=== PATIENT | male | born 1965 ===

== ENCOUNTER → 2020-01-04 10:57 | Outpatient (REF) | payer MEDICARE, MEDICAID, SELFPAY ==
--- NOTE | 2020-01-04 11:10 | ECG_ITS ---
Test Reason : Z01.818 - Encounter for other preprocedural examination Blood Pressure : / mmHG Vent. Rate : 066 BPM Atrial Rate : 066 BPM P-R Int : 160 ms QRS Dur : 078 ms QT Int : 384 ms P-R-T Axes : 048 021 035 degrees QTc Int : 402 ms Normal sinus rhythm Normal ECG When compared with ECG of 03-MAR-2019 16:29, No significant changes seen Referred By: Aston Daniel Electronically Signed By:KRISTEN JEROME MD
== END ==
LOC: HO.CARD 10:57
PROVIDERS: Absent Provider Internal Medicine Gastroenterology; PCP Nurse Practitioner Family; Visit Provider Nurse Practitioner Family
DX: Z01.818 Encounter for other preprocedural examination (principal)
CPT/HCPCS: 93005

== ENCOUNTER 2020-01-05 11:57 | Day surgery (SDC) | payer MEDICARE, MEDICAID, SELFPAY ==
[2019-12-28 16:42] VITALS: BMI 28.7
--- NOTE | 2019-12-29 13:07 | HO.ANESPROP2 ---
HPI - Anesthesia Eval Consult details Narrative: 54yo M for EGD [facility] Past Medical History Medical History (Updated 01/05/20 @ 13:50 by Aston Daniel, [facility]) Anxiety Asthma Back pain Chronic pain COPD (chronic obstructive pulmonary disease) Dysphagia GERD (gastroesophageal reflux disease) High cholesterol History of colitis History of esophageal spasm History of IBS Hx of allergic rhinitis Hx of chest pain Hx of goiter Hx of multiple pulmonary nodules Hx of renal calculi Hypertension KATHLEEN on CPAP Osteoarthritis of both hips Panic attacks PTSD (post-traumatic stress disorder) Surgical History Surgical History (Updated 12/28/19 @ 16:41 by Georgia Pitt) History of nasal surgery Hx of cervical discectomy Hx of colonoscopy Hx of esophagogastroduodenoscopy Hx of left inguinal hernia repair Hx of tonsillectomy Hx of transurethral resection of prostate Social History Social History Smoking Status: Former smoker Meds Allergies Allergy/AdvReac Type Severity Reaction Status Date / Time bee pollen [BEE STINGS] Allergy Unknown UNKNOWN Unverified 12/09/19 15:25 metronidazole [From FLAGYL] Allergy Unknown RASH Unverified 12/09/19 15:25 tree and shrub pollen [TREE] Allergy Unknown UNK Unverified 12/09/19 15:25 dexamethasone AdvReac Unknown palpitatiio Verified 10/26/19 00:00 ns fluticasone furoate AdvReac Unknown palpitations, Verified 10/26/19 00:00 [Breo Ellipta] high BP umeclidinium AdvReac Unknown palpitation Verified 10/26/19 00:00 [Incruse Ellipta] s vilanterol [Breo Ellipta] AdvReac Unknown palpitations, Verified 10/26/19 00:00 high BP Bee sting Allergy Unknown Hives/Difficulty Uncoded 10/26/19 00:00 breathing Clindamycin HCl Allergy Unknown Hives Uncoded 10/26/19 00:00 ENVIRONMENTAL Allergy Unknown UNKNOWN Uncoded 12/09/19 15:25 TYLENOL ES Allergy Unknown UNKNOWN Uncoded 12/09/19 15:25 Home Medications Medication Instructions Recorded Confirmed Type acetaminophen 500 mg tablet 500 mg PO Q6H PRN 12/23/19 12/23/19 History albuterol sulfate 90 mcg/actuation INHALATION 12/23/19 12/23/19 History aerosol inhaler baclofen 10 mg tablet 5 mg PO BID 12/23/19 12/23/19 History cholecalciferol (vitamin D3) 50 50 mcg PO DAILY 12/23/19 12/23/19 History mcg (2,000 unit) tablet cyclobenzaprine 10 mg tablet 10 mg PO TID PRN 12/23/19 12/23/19 History cyclobenzaprine 5 mg tablet 5 mg PO TID PRN 12/23/19 12/23/19 History diclofenac sodium 1 % topical gel g TOPICAL DAILY 12/23/19 12/23/19 History epinephrine 0.3 mg/0.3 mL IM DIRECTED 12/23/19 12/23/19 History injection, auto-injector famotidine 20 mg tablet 20 mg PO BEDTIME PRN 12/23/19 12/23/19 History famotidine 40 mg tablet 40 mg PO DAILY 12/23/19 12/23/19 History hydroxyzine pamoate 25 mg capsule 25 mg PO BEDTIME PRN 12/23/19 12/23/19 History hyoscyamine sulfate 0.125 mg 0.125 mg PO Q4H PRN 12/23/19 12/23/19 History disintegrating tablet ibuprofen 600 mg tablet 600 mg PO QID PRN 12/23/19 12/23/19 History ipratropium 20 mcg-albuterol 100 1 puff PO Q6H 12/23/19 12/23/19 History mcg/actuation mist for inhalation lactulose 10 gram/15 mL oral 15 ml PO DAILY 12/23/19 12/23/19 History solution levalbuterol tartrate 45 2 puff PO Q6H PRN 12/23/19 12/23/19 History mcg/actuation aerosol inhaler levocetirizine 5 mg tablet mg PO 12/23/19 12/23/19 History lidocaine HCl 2 % mucosal solution 15 ml PO Q3H PRN 12/23/19 12/23/19 History lisinopril 5 mg tablet 5 mg PO DAILY 12/23/19 12/23/19 History methocarbamol 750 mg tablet 750 mg PO QID 12/23/19 12/23/19 History multivitamin 1 tab PO DAILY 12/23/19 12/23/19 History naproxen 500 mg tablet 500 mg PO Q12H PRN 12/23/19 12/23/19 History omega-3 acid ethyl esters 1 gram 2 cap PO BID 12/23/19 12/23/19 History capsule oxycodone 15 mg tablet 15 mg PO BID PRN 12/23/19 12/23/19 History phenazopyridine 100 mg tablet 100 mg PO Q8H PRN 12/23/19 12/23/19 History simethicone 180 mg capsule 180 mg PO PRN 12/23/19 12/23/19 History sucralfate 100 mg/mL oral 10 ml PO BID 12/23/19 12/23/19 History suspension tramadol 50 mg tablet 50 mg PO Q8H PRN 12/23/19 12/23/19 History triamcinolone acetonide 55 mcg 1 spray INTRANASAL DAILY 12/23/19 12/23/19 History nasal spray aerosol Exam Exam Date and Time: December 29, 2019 1307 Height,Weight and Vital Signs: Height 5 ft 8 in Weight 85.729 kg Pertinent Lab Results Pertinent Lab Results: Laboratory Tests 08/11/19 08/11/19 10:45 10:45 WBC 6.1 Hgb 14.9 Hct 43.1 Plt Count 277 Sodium 139 Potassium 4.4 Chloride 103 BUN 12 Creatinine 0.97 EKG per 11/10 cardiol note: SR, nonspec ant lead changes, ? 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 Assessment and Plan Assessment Anesthesia Assessment: Chart Reviewed
[2020-01-05 12:45] VITALS: BP 148/88; PULSE 59; RESP 18; TEMP 36.7; O2SAT 97
--- NOTE | 2020-01-05 13:04 | HO.ANESPROP2 ---
[facility] Past Medical History Medical History (Updated 01/04/20 @ 07:42 by Aston Daniel, [facility]) Anxiety Asthma Back pain Chronic pain COPD (chronic obstructive pulmonary disease) Dysphagia GERD (gastroesophageal reflux disease) High cholesterol History of colitis History of esophageal spasm History of IBS Hx of allergic rhinitis Hx of chest pain Hx of goiter Hx of multiple pulmonary nodules Hx of renal calculi Hypertension KATHLEEN on CPAP Osteoarthritis of both hips Panic attacks PTSD (post-traumatic stress disorder) Surgical History Surgical History (Updated 12/28/19 @ 16:41 by Georgia Pitt) History of nasal surgery Hx of cervical discectomy Hx of colonoscopy Hx of esophagogastroduodenoscopy Hx of left inguinal hernia repair Hx of tonsillectomy Hx of transurethral resection of prostate Social History Social History Smoking Status: Former smoker Smoking Quit Date: years ago Use of substances other than those prescribed or required for medical reasons: No Advance Directives: Yes Advance Directives on File: No Recently lost weight without trying: No Meds Allergies Allergy/AdvReac Type Severity Reaction Status Date / Time bee pollen [BEE STINGS] Allergy Unknown UNKNOWN Unverified 12/09/19 15:25 metronidazole [From FLAGYL] Allergy Unknown RASH Unverified 12/09/19 15:25 tree and shrub pollen [TREE] Allergy Unknown UNK Unverified 12/09/19 15:25 dexamethasone AdvReac Unknown palpitatiio Verified 10/26/19 00:00 ns fluticasone furoate AdvReac Unknown palpitations, Verified 10/26/19 00:00 [Breo Ellipta] high BP umeclidinium AdvReac Unknown palpitation Verified 10/26/19 00:00 [Incruse Ellipta] s vilanterol [Breo Ellipta] AdvReac Unknown palpitations, Verified 10/26/19 00:00 high BP Bee sting Allergy Unknown Hives/Difficulty Uncoded 10/26/19 00:00 breathing Clindamycin HCl Allergy Unknown Hives Uncoded 10/26/19 00:00 ENVIRONMENTAL Allergy Unknown UNKNOWN Uncoded 12/09/19 15:25 TYLENOL ES Allergy Unknown UNKNOWN Uncoded 12/09/19 15:25 Home Medications Medication Instructions Recorded Confirmed Type acetaminophen 500 mg tablet 500 mg PO Q6H PRN 12/23/19 12/23/19 History albuterol sulfate 90 mcg/actuation INHALATION 12/23/19 12/23/19 History aerosol inhaler baclofen 10 mg tablet 5 mg PO BID 12/23/19 12/23/19 History cholecalciferol (vitamin D3) 50 50 mcg PO DAILY 12/23/19 12/23/19 History mcg (2,000 unit) tablet cyclobenzaprine 10 mg tablet 10 mg PO TID PRN 12/23/19 12/23/19 History cyclobenzaprine 5 mg tablet 5 mg PO TID PRN 12/23/19 12/23/19 History diclofenac sodium 1 % topical gel g TOPICAL DAILY 12/23/19 12/23/19 History epinephrine 0.3 mg/0.3 mL IM DIRECTED 12/23/19 12/23/19 History injection, auto-injector famotidine 20 mg tablet 20 mg PO BEDTIME PRN 12/23/19 12/23/19 History famotidine 40 mg tablet 40 mg PO DAILY 12/23/19 12/23/19 History hydroxyzine pamoate 25 mg capsule 25 mg PO BEDTIME PRN 12/23/19 12/23/19 History hyoscyamine sulfate 0.125 mg 0.125 mg PO Q4H PRN 12/23/19 12/23/19 History disintegrating tablet ibuprofen 600 mg tablet 600 mg PO QID PRN 12/23/19 12/23/19 History ipratropium 20 mcg-albuterol 100 1 puff PO Q6H 12/23/19 12/23/19 History mcg/actuation mist for inhalation lactulose 10 gram/15 mL oral 15 ml PO DAILY 12/23/19 12/23/19 History solution levalbuterol tartrate 45 2 puff PO Q6H PRN 12/23/19 12/23/19 History mcg/actuation aerosol inhaler levocetirizine 5 mg tablet mg PO 12/23/19 12/23/19 History lidocaine HCl 2 % mucosal solution 15 ml PO Q3H PRN 12/23/19 12/23/19 History lisinopril 5 mg tablet 5 mg PO DAILY 12/23/19 12/23/19 History methocarbamol 750 mg tablet 750 mg PO QID 12/23/19 12/23/19 History multivitamin 1 tab PO DAILY 12/23/19 12/23/19 History naproxen 500 mg tablet 500 mg PO Q12H PRN 12/23/19 12/23/19 History omega-3 acid ethyl esters 1 gram 2 cap PO BID 12/23/19 12/23/19 History capsule oxycodone 15 mg tablet 15 mg PO BID PRN 12/23/19 12/23/19 History phenazopyridine 100 mg tablet 100 mg PO Q8H PRN 12/23/19 12/23/19 History simethicone 180 mg capsule 180 mg PO PRN 12/23/19 12/23/19 History sucralfate 100 mg/mL oral 10 ml PO BID 12/23/19 12/23/19 History suspension tramadol 50 mg tablet 50 mg PO Q8H PRN 12/23/19 12/23/19 History triamcinolone acetonide 55 mcg 1 spray INTRANASAL DAILY 12/23/19 12/23/19 History nasal spray aerosol Exam Exam Date and Time: January 05, 2020 1304 Height,Weight and Vital Signs: Height 5 ft 8 in Weight 85.729 kg Last Vital Signs Temp 98.1 F 01/05/20 12:45 Pulse 59 01/05/20 12:45 Resp 18 01/05/20 12:45 BP 148/88 H 01/05/20 12:45 Pulse Ox 97 01/05/20 12:45 Airway Mallampati Class: III TM Dist: >3cm Neck ROM: Poor Loose/Missing/Broken Teeth: Yes and Lower (No lower teeth) Heart: RRR Assessment and Plan Assessment Anesthesia Assessment: Anesthesia Plan Discussed Final Anesthetic Review NPO: Yes ASA Class: III Final Preanesthetic Review: Consent Obtained/Reviewed Anesthetic Plan Anesthetic Plan: MAC:
[2020-01-05] MEDS: Albuterol Sulfate (0.083%) 2.5 MG/3 ML VIAL.NEB INHALE (13:08)
--- NOTE | 2020-01-05 13:18 | MHC.SHP ---
Pre-Procedural Eval Section B Chief Complaint: Dysphagia Relevant Family History (Specify if Yes): No Relevant Social History: None Present Medications: see Short Stay Collaborative assessment Medical History: Significant History (anxiety, neck pain, bladder obstruction, PTSD, ) History of Previous Operations: Relevant previous surgery/procedure and date(s) (TURP, nasal surgery) Allergies: Allergies Allergy/AdvReac Type Severity Reaction Status Date / Time bee pollen [BEE STINGS] Allergy Unknown UNKNOWN Unverified 12/09/19 15:25 metronidazole [From FLAGYL] Allergy Unknown RASH Unverified 12/09/19 15:25 tree and shrub pollen [TREE] Allergy Unknown UNK Unverified 12/09/19 15:25 dexamethasone AdvReac Unknown palpitatiio Verified 10/26/19 00:00 ns fluticasone furoate AdvReac Unknown palpitations, Verified 10/26/19 00:00 [Breo Ellipta] high BP umeclidinium AdvReac Unknown palpitation Verified 10/26/19 00:00 [Incruse Ellipta] s vilanterol [Breo Ellipta] AdvReac Unknown palpitations, Verified 10/26/19 00:00 high BP Bee sting Allergy Unknown Hives/Difficulty Uncoded 10/26/19 00:00 breathing Clindamycin HCl Allergy Unknown Hives Uncoded 10/26/19 00:00 ENVIRONMENTAL Allergy Unknown UNKNOWN Uncoded 12/09/19 15:25 TYLENOL ES Allergy Unknown UNKNOWN Uncoded 12/09/19 15:25 Review of Systems Sugical H&P ROS: Negative: Constitution, Cardiovascular, Respiratory, Neurological, Psychiatric, Hem-Onc, Allergic/Immunologic, Gastrointestinal, Genitourinary, Musculoskeletal, Integumentary, Endocrine and Eyes/Ears/Nose/Throat Exam Surgical H&P Exam: Normal: HEENT, Normal: Heart, Normal: Lungs, Normal: Extremities, Normal: Abdomen, Normal: Skin and Normal: Neurological Plan Diagnosis/Plan: Unchanged Patient has been examined and remains a candidate for the planned procedure
--- NOTE | 2020-01-05 13:22 | PM.OP ---
Brief Operative Note Date of procedure: 01/05/20 Pre-op diagnosis: dysphagia Post-op diagnosis: same Procedure: Procedure Description: EGD FLEXIBLE TRANSORAL UPPER GASTROINTESTINAL ENDOSCOPY UPPER ENDOSCOPY Consent: Indications for the procedure and potential complications of bleeding, perforation, reaction to medications and missed diagnosis were discussed with the patient and informed consent was obtained. Instrument: Olympus GIF H 190 J mid size upper endoscope Monitoring: Vital signs and clinical assessment, continuous EKG monitoring, Pulse oximetry, Carbon Dioxide monitoring and blood pressure monitoring were done throughout the procedure. Procedure: The patient was placed in the left lateral decubitis position and pre-procedure medications were administered and a bite block was placed. The endoscope was inserted into the mouth and advanced under direct vision to the third part of duodenum. A careful inspection was made as the upper endoscope was withdrawn including a retroflexed examination of the proximal stomach; Findings and interventions are described below. Findings: Larynx:normal Esophagus: GE junction at 38 cm, diaphragm hiatus at 38 cm, no varices or esophagitis. random esophagus bx taken. Radial balloon dilated in stepwise increments from 18-20 mm at GEJ, no tears noted. The balloon was also dilated at UES at 18 mm and small tear noted. Stomach: Normal gastric mucosa. Grade 2 flap valve on retroflexed examination of the cardia. Duodenum: Normal bulb and descending duodenum, Intervention: Biopsies as noted above, balloon dilation Impression/Findings: upper esophageal stricture PLAN: soft diet today can use magic mouthwash prn await bx results Surgeon: Wilmar Beal MD Anesthesia: MAC Condition: stable Disposition: PACU
[2020-01-05 13:47] VITALS: BP 138/88; PULSE 120; RESP 16; TEMP 36.5; O2SAT 95
[2020-01-05 14:08] VITALS: BP 135/86; PULSE 103; RESP 16; O2SAT 97
[2020-01-05 14:23] VITALS: BP 109/74; PULSE 88; RESP 19; TEMP 36.5; O2SAT 97
[2020-01-05] MEDS: Mag&Al/Sim/Diphenhyd/Lidocaine 10 ML ORAL.SUSP PO (14:27)
== END 2020-01-05 15:13 | disposition home or self-care (01) ==
PROVIDERS: PCP Nurse Practitioner Family; Visit Provider Internal Medicine Gastroenterology
PROC: (CPT 43249; principal; 2020-01-05 13:40)
DX: K22.2 Esophageal obstruction (principal); K44.9 Diaphragmatic hernia without obstruction or gangrene; I10 Essential (primary) hypertension; J45.909 Unspecified asthma, uncomplicated; J44.9 Chronic obstructive pulmonary disease, unspecified; E78.00 Pure hypercholesterolemia, unspecified; G47.33 Obstructive sleep apnea (adult) (pediatric); F41.0 Panic disorder [episodic paroxysmal anxiety]; F43.10 Post-traumatic stress disorder, unspecified; Z87.891 Personal history of nicotine dependence; Z88.1 Allergy status to other antibiotic agents; Z88.8 Allergy status to other drugs, medicaments and biological substances; Z91.030 Bee allergy status; Z79.899 Other long term (current) drug therapy
CPT/HCPCS: 43249; 43239; 88305; C1726

== ENCOUNTER 2020-01-10 14:00 | Outpatient (REF) | payer MEDICARE, MEDICAID, SELFPAY ==
--- NOTE | 2020-01-10 14:06 | XR_ITS ---
EXAMINATION: XR CHEST CLINICAL INFORMATION: COPD. COMPARISON: None TECHNIQUE: 2 views of the chest were obtained. FINDINGS: The lungs are well-expanded and clear. The heart size and pulmonary vascularity is normal. No gross bony abnormality seen. There is metallic plate and screws along the ventral C6 and C7 vertebra for fusion. IMPRESSION: No acute cardiopulmonary process seen.
== END 2020-01-10 14:01 | disposition home or self-care (01) ==
LOC: HO.XRAY 14:00
PROVIDERS: PCP Nurse Practitioner Family; Visit Provider Hospitalist
DX: J44.9 Chronic obstructive pulmonary disease, unspecified (principal)
CPT/HCPCS: 71046; 99214

== ENCOUNTER 2020-01-27 08:57 | Day surgery (SDC) | payer MEDICARE, MEDICAID, SELFPAY ==
--- NOTE | 2020-01-25 15:18 | HO.ANESPROP2 ---
Documented by User: Sharmila Nicole 01/26/20 11:05 HPI - Anesthesia Eval Consult details Narrative: 54yo M for Upper Endoscopy with dilation PCP cleared s/p EGD with dilation 01/05/20 with MOISÉS SUE Past Medical History Medical History (Updated 01/10/20 @ 13:44 by Johnathan Cerda MD) Anxiety Asthma Back pain Chronic pain COPD (chronic obstructive pulmonary disease) COPD (chronic obstructive pulmonary disease) Dysphagia GERD (gastroesophageal reflux disease) High cholesterol History of colitis History of esophageal spasm History of IBS Hx of allergic rhinitis Hx of chest pain Hx of goiter Hx of multiple pulmonary nodules Hx of renal calculi Hypertension KATHLEEN on CPAP Osteoarthritis of both hips Panic attacks PTSD (post-traumatic stress disorder) Pulmonary nodules Surgical History Surgical History (Updated 12/28/19 @ 16:41 by Georgia Pitt) History of nasal surgery Hx of cervical discectomy Hx of colonoscopy Hx of esophagogastroduodenoscopy Hx of left inguinal hernia repair Hx of tonsillectomy Hx of transurethral resection of prostate Social History Social History Smoking Status: Former smoker Use of substances other than those prescribed or required for medical reasons: No Advance Directives: No Recently lost weight without trying: No Narrative Narrative: Seen by cardiology after work up in 10/2019. CP thought to be related to cervical spine disease. No further cardiac work up needed. Meds Allergies Allergy/AdvReac Type Severity Reaction Status Date / Time bee pollen [BEE STINGS] Allergy Unknown UNKNOWN Verified 01/10/20 19:50 metronidazole [From FLAGYL] Allergy Unknown RASH Verified 01/10/20 19:50 tree and shrub pollen [TREE] Allergy Unknown UNK Verified 01/10/20 19:50 dexamethasone AdvReac Unknown palpitatiio Verified 01/10/20 19:50 ns fluticasone furoate AdvReac Unknown palpitations, Verified 01/10/20 19:50 [Breo Ellipta] high BP umeclidinium AdvReac Unknown palpitation Verified 01/10/20 19:50 [Incruse Ellipta] s vilanterol [Breo Ellipta] AdvReac Unknown palpitations, Verified 01/10/20 19:50 high BP Bee sting Allergy Unknown Hives/Difficulty Uncoded 01/10/20 19:50 breathing Clindamycin HCl Allergy Unknown Hives Uncoded 01/10/20 19:50 ENVIRONMENTAL Allergy Unknown UNKNOWN Uncoded 01/10/20 19:50 TYLENOL ES Allergy Unknown UNKNOWN Uncoded 01/10/20 19:50 Home Medications Medication Instructions Recorded Confirmed Type albuterol sulfate 90 mcg/actuation INHALATION 12/23/19 01/10/20 History aerosol inhaler baclofen 10 mg tablet 5 mg PO BID 12/23/19 01/10/20 History cyclobenzaprine 10 mg tablet 10 mg PO TID PRN 12/23/19 01/10/20 History diclofenac sodium 1 % topical gel g TOPICAL DAILY 12/23/19 01/10/20 History epinephrine 0.3 mg/0.3 mL IM DIRECTED 12/23/19 01/10/20 History injection, auto-injector famotidine 20 mg tablet 20 mg PO BEDTIME PRN 12/23/19 01/10/20 History famotidine 40 mg tablet 40 mg PO DAILY 12/23/19 01/10/20 History hydroxyzine pamoate 25 mg capsule 25 mg PO BEDTIME PRN 12/23/19 01/10/20 History hyoscyamine sulfate 0.125 mg 0.125 mg PO Q4H PRN 12/23/19 01/10/20 History disintegrating tablet ibuprofen 600 mg tablet 600 mg PO QID PRN 12/23/19 01/10/20 History ipratropium 20 mcg-albuterol 100 1 puff PO Q6H 12/23/19 01/10/20 History mcg/actuation mist for inhalation lactulose 10 gram/15 mL oral 15 ml PO DAILY 12/23/19 01/10/20 History solution levalbuterol tartrate 45 2 puff PO Q6H PRN 12/23/19 01/10/20 History mcg/actuation aerosol inhaler levocetirizine 5 mg tablet mg PO 12/23/19 01/10/20 History lidocaine HCl 2 % mucosal solution 15 ml PO Q3H PRN 12/23/19 01/10/20 History lisinopril 5 mg tablet 5 mg PO DAILY 12/23/19 01/10/20 History methocarbamol 750 mg tablet 750 mg PO QID 12/23/19 01/10/20 History naproxen 500 mg tablet 500 mg PO Q12H PRN 12/23/19 01/10/20 History omega-3 acid ethyl esters 1 gram 2 cap PO BID 12/23/19 01/10/20 History capsule oxycodone 15 mg tablet 15 mg PO BID PRN 12/23/19 01/10/20 History phenazopyridine 100 mg tablet 100 mg PO Q8H PRN 12/23/19 01/10/20 History simethicone 180 mg capsule 180 mg PO PRN 12/23/19 01/10/20 History tramadol 50 mg tablet 50 mg PO Q8H PRN 12/23/19 01/10/20 History flu vac [id number] 36mos up(PF) ml IM ONCE 01/10/20 01/10/20 History ipratropium 20 mcg-albuterol 100 1 puff INHALATION Q6H 01/10/20 01/10/20 History mcg/actuation mist for inhalation Exam Exam Date and Time: January 25, 2020 1518 Pertinent Lab Results Pertinent Lab Results: Laboratory Tests 08/11/19 08/11/19 10:45 10:45 WBC 6.1 Hgb 14.9 Hct 43.1 Plt Count 277 Sodium 139 Potassium 4.4 Chloride 103 BUN 12 Narrative Narrative: EKG 10/2019: SR, nonspecific changes in anterior leads, cannot exclude old infarct (no change from previous) Echo 10/2018: LVEF 60-65%, mild DD, no signif valve pathology Exercise stress 12/2018: 8.9 METS without angina, nml BP response, no EKG evidence of ischemia, echo component also nml 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 Anomaly is benign in nature and doesn't need any treatment Assessment and Plan Assessment Anesthesia Assessment: Chart Reviewed Documented by User: Yvette Jackson 01/27/20 09:58 [facility] Past Medical History Medical History (Updated 01/10/20 @ 13:44 by Johnathan Cerda MD) Anxiety Asthma Back pain Chronic pain COPD (chronic obstructive pulmonary disease) COPD (chronic obstructive pulmonary disease) Dysphagia GERD (gastroesophageal reflux disease) High cholesterol History of colitis History of esophageal spasm History of IBS Hx of allergic rhinitis Hx of chest pain Hx of goiter Hx of multiple pulmonary nodules Hx of renal calculi Hypertension KATHLEEN on CPAP Osteoarthritis of both hips Panic attacks PTSD (post-traumatic stress disorder) Pulmonary nodules Family History Family history of problems with anesthesia: Yes (PONV) Surgical History Surgical History (Updated 12/28/19 @ 16:41 by Georgia Pitt) History of nasal surgery Hx of cervical discectomy Hx of colonoscopy Hx of esophagogastroduodenoscopy Hx of left inguinal hernia repair Hx of tonsillectomy Hx of transurethral resection of prostate History of Problems with Anesthesia: No Social History Social History Smoking Status: Former smoker Use of substances other than those prescribed or required for medical reasons: No Advance Directives: No Recently lost weight without trying: No Meds Allergies Allergy/AdvReac Type Severity Reaction Status Date / Time bee pollen [BEE STINGS] Allergy Unknown UNKNOWN Verified 01/10/20 19:50 metronidazole [From FLAGYL] Allergy Unknown RASH Verified 01/10/20 19:50 tree and shrub pollen [TREE] Allergy Unknown UNK Verified 01/10/20 19:50 dexamethasone AdvReac Unknown palpitatiio Verified 01/10/20 19:50 ns fluticasone furoate AdvReac Unknown palpitations, Verified 01/10/20 19:50 [Breo Ellipta] high BP umeclidinium AdvReac Unknown palpitation Verified 01/10/20 19:50 [Incruse Ellipta] s vilanterol [Breo Ellipta] AdvReac Unknown palpitations, Verified 01/10/20 19:50 high BP Bee sting Allergy Unknown Hives/Difficulty Uncoded 01/10/20 19:50 breathing Clindamycin HCl Allergy Unknown Hives Uncoded 01/10/20 19:50 ENVIRONMENTAL Allergy Unknown UNKNOWN Uncoded 01/10/20 19:50 TYLENOL ES Allergy Unknown UNKNOWN Uncoded 01/10/20 19:50 Home Medications Medication Instructions Recorded Confirmed Type albuterol sulfate 90 mcg/actuation INHALATION 12/23/19 01/10/20 History aerosol inhaler baclofen 10 mg tablet 5 mg PO BID 12/23/19 01/10/20 History cyclobenzaprine 10 mg tablet 10 mg PO TID PRN 12/23/19 01/10/20 History diclofenac sodium 1 % topical gel g TOPICAL DAILY 12/23/19 01/10/20 History epinephrine 0.3 mg/0.3 mL IM DIRECTED 12/23/19 01/10/20 History injection, auto-injector famotidine 20 mg tablet 20 mg PO BEDTIME PRN 12/23/19 01/10/20 History famotidine 40 mg tablet 40 mg PO DAILY 12/23/19 01/10/20 History hydroxyzine pamoate 25 mg capsule 25 mg PO BEDTIME PRN 12/23/19 01/10/20 History hyoscyamine sulfate 0.125 mg 0.125 mg PO Q4H PRN 12/23/19 01/10/20 History disintegrating tablet ibuprofen 600 mg tablet 600 mg PO QID PRN 12/23/19 01/10/20 History ipratropium 20 mcg-albuterol 100 1 puff PO Q6H 12/23/19 01/10/20 History mcg/actuation mist for inhalation lactulose 10 gram/15 mL oral 15 ml PO DAILY 12/23/19 01/10/20 History solution levalbuterol tartrate 45 2 puff PO Q6H PRN 12/23/19 01/10/20 History mcg/actuation aerosol inhaler levocetirizine 5 mg tablet mg PO 12/23/19 01/10/20 History lidocaine HCl 2 % mucosal solution 15 ml PO Q3H PRN 12/23/19 01/10/20 History lisinopril 5 mg tablet 5 mg PO DAILY 12/23/19 01/10/20 History methocarbamol 750 mg tablet 750 mg PO QID 12/23/19 01/10/20 History naproxen 500 mg tablet 500 mg PO Q12H PRN 12/23/19 01/10/20 History omega-3 acid ethyl esters 1 gram 2 cap PO BID 12/23/19 01/10/20 History capsule oxycodone 15 mg tablet 15 mg PO BID PRN 12/23/19 01/10/20 History phenazopyridine 100 mg tablet 100 mg PO Q8H PRN 12/23/19 01/10/20 History simethicone 180 mg capsule 180 mg PO PRN 12/23/19 01/10/20 History tramadol 50 mg tablet 50 mg PO Q8H PRN 12/23/19 01/10/20 History flu vac [id number] 36mos up(PF) ml IM ONCE 01/10/20 01/10/20 History ipratropium 20 mcg-albuterol 100 1 puff INHALATION Q6H 01/10/20 01/10/20 History mcg/actuation mist for inhalation Exam Height,Weight and Vital Signs: Vital Signs Temp Pulse Resp BP Pulse Ox 01/27/20 09:37 97.9 F 94 16 138/97 H 95 Airway Mallampati Class: III TM Dist: >3cm Neck ROM: Limited Loose/Missing/Broken Teeth: Yes (No teeth bottom) Heart: RRR Lungs: CTAB Assessment and Plan Assessment Anesthesia Assessment: Anesthesia Plan Discussed and Chart Reviewed Final Anesthetic Review NPO: Yes ASA Class: III Final Preanesthetic Review: No Changes in Pt Med Stat, Meds/Allgs Chart Reviewed, Consent Obtained/Reviewed and Anes Risks/Benef Reviewed Patient Risk: Intermediate Procedure Risk: Low Anesthetic Plan Anesthetic Plan: MAC: Disposition: Standard PACU
[2020-01-27 09:37] VITALS: BP 138/97; PULSE 94; RESP 16; TEMP 36.6; O2SAT 95; BMI 29.0
--- NOTE | 2020-01-27 09:55 | MHC.SHP ---
Pre-Procedural Eval Section B Chief Complaint: dysphagia Relevant Family History (Specify if Yes): No Relevant Social History: None Present Medications: see Short Stay Collaborative assessment Medical History: Significant History (copd, anxiety, esophgeal stricture) History of Previous Operations: Relevant previous surgery/procedure and date(s) (TURP, tonsils) Allergies: Allergies Allergy/AdvReac Type Severity Reaction Status Date / Time bee pollen [BEE STINGS] Allergy Unknown UNKNOWN Verified 01/10/20 19:50 metronidazole [From FLAGYL] Allergy Unknown RASH Verified 01/10/20 19:50 tree and shrub pollen [TREE] Allergy Unknown UNK Verified 01/10/20 19:50 dexamethasone AdvReac Unknown palpitatiio Verified 01/10/20 19:50 ns fluticasone furoate AdvReac Unknown palpitations, Verified 01/10/20 19:50 [Breo Ellipta] high BP umeclidinium AdvReac Unknown palpitation Verified 01/10/20 19:50 [Incruse Ellipta] s vilanterol [Breo Ellipta] AdvReac Unknown palpitations, Verified 01/10/20 19:50 high BP Bee sting Allergy Unknown Hives/Difficulty Uncoded 01/10/20 19:50 breathing Clindamycin HCl Allergy Unknown Hives Uncoded 01/10/20 19:50 ENVIRONMENTAL Allergy Unknown UNKNOWN Uncoded 01/10/20 19:50 TYLENOL ES Allergy Unknown UNKNOWN Uncoded 01/10/20 19:50 Review of Systems Sugical H&P ROS: Negative: Constitution, Cardiovascular, Respiratory, Neurological, Psychiatric, Hem-Onc, Allergic/Immunologic, Gastrointestinal, Genitourinary, Musculoskeletal, Integumentary, Endocrine and Eyes/Ears/Nose/Throat Exam Surgical H&P Exam: Normal: HEENT, Normal: Heart, Normal: Lungs, Normal: Extremities, Normal: Abdomen, Normal: Skin and Normal: Neurological Plan Diagnosis/Plan: Unchanged Patient has been examined and remains a candidate for the planned procedure--EGD with dilation,cora
--- NOTE | 2020-01-27 09:57 | PM.OP ---
Brief Operative Note Date of procedure: 01/27/20 Pre-op diagnosis: dysphagia Post-op diagnosis: same Procedure: see op note Surgeon: Wilmar Beal MD Anesthesia: MAC Estimated blood loss (mL): 0 Condition: stable Disposition: PACU
--- NOTE | 2020-01-27 09:57 | W.PM.OPN ---
Operative Note Operative Note Narrative: FLEXIBLE TRANSORAL UPPER GASTROINTESTINAL ENDOSCOPY UPPER ENDOSCOPY Consent: Indications for the procedure and potential complications of bleeding, perforation, reaction to medications and missed diagnosis were discussed with the patient and informed consent was obtained. Instrument: Olympus GIF H 190 J mid size upper endoscope Monitoring: Vital signs and clinical assessment, continuous EKG monitoring, Pulse oximetry, Carbon Dioxide monitoring and blood pressure monitoring were done throughout the procedure. Procedure: The patient was placed in the left lateral decubitis position and pre-procedure medications were administered and a bite block was placed. The endoscope was inserted into the mouth and advanced under direct vision to the third part of duodenum. A careful inspection was made as the upper endoscope was withdrawn including a retroflexed examination of the proximal stomach; Findings and interventions are described below. Findings: Larynx:normal Esophagus: GE junction at 38 cm, diaphragm hiatus at 38 cm, no varices or esophagitis. 16 mm bougie used to dilated esophagus over a savary wire with small tear noted in upper esophagus. Stomach: Normal gastric mucosa. Grade 2 flap valve on retroflexed examination of the cardia. Duodenum: Normal bulb and descending duodenum, Intervention: savary dilation Impression/Findings: upper esophageal stricture PLAN: soft diet today can use magic mouthwash prn
[2020-01-27] MEDS: Lactated Ringers 1,000 ML 100 ML IVCONT (10:02)
--- NOTE | 2020-01-27 10:05 | PC.NURSE ---
patient arrived an hour late. drove self here. spoke to wade truongay to take a taxi vocher home. unable to get a ride to pick him up.
[2020-01-27 10:36] VITALS: BP 109/76; PULSE 103; RESP 16; TEMP 36.1; O2SAT 98
--- NOTE | 2020-01-27 10:46 | PC.NURSE ---
1035 EYES OPEN WAKING O2 DC'D ASST WITH SIT UP , QUIET, FALLS EASILY BACK TO SLEEP
[2020-01-27 10:50] VITALS: BP 102/73; PULSE 107; RESP 18; O2SAT 94
[2020-01-27 11:07] VITALS: BP 107/74; PULSE 97; RESP 20; O2SAT 97
--- NOTE | 2020-01-27 11:46 | HO.POSTANES ---
Post Anesthesia Evaluation Post Anesthesia Evaluation Vital Signs: Vital Signs Temp Pulse Resp BP Pulse Ox 01/27/20 11:07 97 F 97 20 107/74 97 01/27/20 10:50 107 H 18 102/73 94 01/27/20 10:36 97 F 103 H 16 109/76 98 01/27/20 09:37 97.9 F 94 16 138/97 H 95 Anesthesia: Monitored (TIVA) Mental Status: Awake Pain Control: Satisfactory Nausea/Vomiting: None Hydration: Adequate Anesthesia-Related Issues: No Anes. Related Issues
== END 2020-01-27 23:59 | disposition home or self-care (01) ==
PROVIDERS: PCP Nurse Practitioner Family; Visit Provider Internal Medicine Gastroenterology
PROC: 0DJ08ZZ Inspection of Upper Intestinal Tract, Via Natural or Artificial Opening Endoscopic (ICD-10-PCS; CPT 43235; principal; 2020-01-27 09:20)
DX: K22.2 Esophageal obstruction (principal); K44.9 Diaphragmatic hernia without obstruction or gangrene; K21.9 Gastro-esophageal reflux disease without esophagitis; J44.9 Chronic obstructive pulmonary disease, unspecified; I10 Essential (primary) hypertension; Z99.89 Dependence on other enabling machines and devices; Z79.899 Other long term (current) drug therapy; Z87.891 Personal history of nicotine dependence; Z88.0 Allergy status to penicillin
CPT/HCPCS: 43248; C1769

== ENCOUNTER → 2020-02-11 10:53 | Outpatient (BNVA) | payer MEDICARE, MEDICAID, SELFPAY | PROVIDERS: PCP Internal Medicine; Referring Provider Nurse Practitioner Family; Visit Provider Hospitalist | DX: J44.9 Chronic obstructive pulmonary disease, unspecified (principal); R91.8 Other nonspecific abnormal finding of lung field; K21.9 Gastro-esophageal reflux disease without esophagitis; K22.2 Esophageal obstruction; Z87.891 Personal history of nicotine dependence; Z98.890 Other specified postprocedural states | CPT/HCPCS: 99212 ==

== ENCOUNTER 2020-03-06 08:29 | Outpatient (REF) | payer MEDICARE, MEDICAID, SELFPAY ==
[2020-03-08 21:52] LABS: Adrenocorticotropic Hormone 17 pg/mL (6-50)
== END 2020-03-06 08:30 | disposition home or self-care (01) ==
LOC: HO.LAB 08:29
PROVIDERS: PCP Internal Medicine; Visit Provider Internal Medicine
DX: E16.2 Hypoglycemia, unspecified (principal)
CPT/HCPCS: 82024; 82533

== ENCOUNTER 2020-03-10 07:48 | Outpatient (REF) | payer MEDICARE, MEDICAID, SELFPAY ==
[2020-03-10 09:01] LABS: Glucose Fasting 103 mg/dL (60-99)
[2020-03-10 09:01] LABS: Anion Gap 11 (12-20); Blood Urea Nitrogen 13 mg/dL (9-16); Calcium 9.3 mg/dL (8.4-10.2); Carbon Dioxide 30 mmol/L (22-29); Chloride 105 mmol/L (96-108); Estimated Glomerular Filt Rate > 60; Glucose Fasting 105 mg/dL (60-99); Potassium 4.2 mmol/l (3.3-5.1); Sodium 142 mmol/L (135-145)
[2020-03-10 09:27] LABS: Free T4 (Free Thyroxine) 1.22 ng/dL (0.71-1.85); Thyroid Stimulating Hormone 0.87 uIU/mL (0.32-4.0)
[2020-03-11 08:52] LABS: C Peptide 3.41 ng/mL (0.80-3.85)
[2020-03-13 11:43] LABS: DHEA Sulfate 100 mcg/dL (38-313)
[2020-03-13 22:11] LABS: Adrenocorticotropic Hormone 29 pg/mL (6-50)
[2020-03-14 21:53] LABS: Chromogranin A 277 ng/mL (25-140)
[2020-03-16 18:23] LABS: Beta-Hydroxybutyrate 0.07 mmol/L
[2020-03-17 02:53] LABS: Proinsulin 78.6 pmol/L (< OR = 18.8)
[2020-03-19 13:31] LABS: Chlorpropamide None Detected; Glimepiride None Detected; Glipizide None Detected; Glyburide None Detected; Nateglinide None Detected; Pioglitazone None Detected; Repaglinide None Detected; Rosiglitazone None Detected; Tolazamide None Detected; Tolbutamide None Detected
== END 2020-03-10 07:49 | disposition home or self-care (01) ==
LOC: HO.LAB 07:48
PROVIDERS: PCP Internal Medicine; Visit Provider Internal Medicine
DX: E16.2 Hypoglycemia, unspecified (principal)
CPT/HCPCS: 80048; 80337; 82010; 82024; 82533; 82627; 82951; 82952; 84206; 84439; 84443; 84681; 86316

== ENCOUNTER → 2020-03-14 11:29 | Outpatient (BNVA) | payer MEDICARE, MEDICAID, SELFPAY | PROVIDERS: Visit Provider Internal Medicine Gastroenterology | DX: Z13.89 Encounter for screening for other disorder (principal) | CPT/HCPCS: Q3014 ==

== ENCOUNTER 2020-03-21 07:55 | Outpatient (REF) | payer MEDICARE, MEDICAID, SELFPAY ==
[2020-03-22 19:22] LABS: Cortisol 30 Minute 22.7 mcg/dL; Cortisol Baseline 7.7 mcg/dL
[2020-03-22 22:53] LABS: Adrenocorticotropic Hormone 19 pg/mL (6-50)
== END 2020-03-21 07:56 | disposition home or self-care (01) ==
LOC: HO.MDS 07:55
PROVIDERS: PCP Internal Medicine; Visit Provider Internal Medicine
DX: E27.40 Unspecified adrenocortical insufficiency (principal)
CPT/HCPCS: 82024; 82533; 96374; J0834

== ENCOUNTER → 2020-04-11 15:35 | Outpatient (BNVA) | payer MEDICARE, MEDICAID, SELFPAY | PROVIDERS: Visit Provider Internal Medicine Gastroenterology | DX: K21.9 Gastro-esophageal reflux disease without esophagitis (principal); K22.2 Esophageal obstruction | CPT/HCPCS: 99212 ==

== ENCOUNTER → 2020-04-13 10:45 | Outpatient (BNVA) | payer MEDICARE, MEDICAID, SELFPAY | PROVIDERS: PCP Internal Medicine; Visit Provider Hospitalist | DX: J44.9 Chronic obstructive pulmonary disease, unspecified (principal); R91.8 Other nonspecific abnormal finding of lung field; K21.9 Gastro-esophageal reflux disease without esophagitis | CPT/HCPCS: 99212 ==

== ENCOUNTER 2020-04-24 09:22 | Outpatient (REF) | payer MEDICARE, MEDICAID, SELFPAY ==
--- NOTE | 2020-04-24 09:27 | US_ITS ---
EXAMINATION: US ABDOMEN COMPLETE CLINICAL INFORMATION: Abdominal pain. COMPARISON: Ultrasound renal 11/24/2019 and 03/25/2019. X-ray KUB 03/19/2019. CT abdomen pelvis 10/25/2018. TECHNIQUE: Real-time imaging of the abdominal viscera. FINDINGS: PANCREAS: Normal. ABDOMINAL AORTA: The proximal, mid, and distal segments are normal in caliber. INFERIOR VENA CAVA: Visualized portions are normal. LIVER: The liver is normal size, contour with increased echogenicity. There is no intrahepatic biliary duct dilatation seen. GALLBLADDER: Normal. The gallbladder is physiologically distended without evidence of stones, sludge, polyps, wall thickening or pericholecystic fluid. COMMON BILE DUCT: Normal in caliber measuring 0.4 cm in diameter. RIGHT KIDNEY: There is an anechoic cyst in the lower pole measuring 2.8 x 2.5 x 2.3 cm. No hydronephrosis or renal calculi. The kidney measures 10.7 cm in maximum dimension. LEFT KIDNEY: Normal. No hydronephrosis. No renal calculi or focal parenchymal lesions. The kidney measures 10.9 cm in maximum dimension. SPLEEN: Normal. The spleen measures 9.8 cm in maximum dimension. FREE FLUID: None. US/US abdomen complete IMPRESSION: 1. Hepatic steatosis without focal lesion. 2. A 2.8 cm cyst, lower pole right kidney. No echogenic renal calculi or hydronephrosis in either kidney. 3. The rest of the abdominal ultrasound is unremarkable.
== END 2020-04-24 09:23 | disposition home or self-care (01) ==
LOC: HO.US 09:22
PROVIDERS: PCP Internal Medicine; Visit Provider Internal Medicine Gastroenterology
DX: R39.15 Urgency of urination (principal); K21.9 Gastro-esophageal reflux disease without esophagitis
CPT/HCPCS: 36415; 76700; 82785; 86003

== ENCOUNTER 2020-04-28 09:33 | Outpatient (REF) | payer MEDICARE, MEDICAID, SELFPAY ==
--- NOTE | ~2020-04-28 | FL_ITS ---
EXAMINATION: FL BARIUM SWALLOW CLINICAL INFORMATION: Esophageal obstruction. COMPARISON: None TECHNIQUE: Barium swallow examination is performed using fluoroscopic evaluation in addition to multiple fluoroscopic spot views. The patient is imaged both upright and prone and using both thick and thin sulfate along with effervescent granules. Fluoroscopy time: 1.2 minutes DAP: 11.725 Gycm2 Images: 64 FINDINGS: Following oral administration of thick barium and barium coated turkey there is normal progression bolus from the oral cavity into the pharynx. There is a ventral plate at C5-C6 disc level for fusion slightly indenting the posterior cervical esophageal wall during swallowing especially with solid or ground food. No obstruction seen however with solids or liquids. Rest of the esophagus is widely patent. There is poor peristalsis in the distal esophagus. On oral administration of barium coated tablet there is normal passage seen throughout the oral cavity, pharynx and esophagus. This transitional holdup of barium at the GE junction. FL/FL barium swallow IMPRESSION: Mild resistance to solid food passage in the cervical esophagus from a ventral plate at C5-C6 disc level for fusion. Transitional hold up of barium tablet at the GE junction.
== END 2020-04-28 09:34 | disposition home or self-care (01) ==
LOC: HO.XRAY 09:33
PROVIDERS: PCP Internal Medicine; Visit Provider Internal Medicine Gastroenterology
DX: K22.2 Esophageal obstruction (principal); R06.02 Shortness of breath; Z87.898 Personal history of other specified conditions; R00.2 Palpitations; G47.33 Obstructive sleep apnea (adult) (pediatric); Z99.89 Dependence on other enabling machines and devices; E78.00 Pure hypercholesterolemia, unspecified; I10 Essential (primary) hypertension
CPT/HCPCS: 74220; 93005; 99212

== ENCOUNTER → 2020-05-26 11:45 | Outpatient (BNVA) | payer MEDICARE, MEDICAID, SELFPAY | PROVIDERS: Visit Provider Urology | DX: Z13.89 Encounter for screening for other disorder (principal) | CPT/HCPCS: Q3014 ==

== ENCOUNTER 2020-06-05 09:28 | Outpatient (REF) | payer MEDICARE, MEDICAID, SELFPAY ==
--- NOTE | ~2020-06-05 | CT_ITS ---
EXAMINATION: CT CHEST WITHOUT CONTRAST CLINICAL INFORMATION: Pulmonary nodule. Other nonspecific abnormal finding of lung field. COMPARISON: Chest x-ray 01/10/2020. CT chest 05/24/2019. TECHNIQUE: Multidetector volumetric CT imaging of the chest was done. Axial MIP volume rendering provided. Sagittal and coronal reformatted images were obtained. This CT examination was performed using dose optimization techniques as appropriate, variously including the following: Automated exposure control. Adjustment of mA and/or kV according to patient size (this includes techniques or standardized protocols for targeted exams where dose is matched to indication/reason for exam; i.e. extremities or head). Use of iterative reconstruction technique. 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 LUNGS: There is diffuse centrilobular emphysema. There are several pulmonary nodules. A right lower lobe pulmonary nodule adjacent to major fissure measures 3 mm and lies adjacent to a prominent bronchial and axial image 300/7, 2 mm pleural-based nodule left lower lobe axial image 399/7, 3 mm nodule subpleural based right lower lobe axial image 448/7, 3 calcified nodule left lower lobe, axial image 464/7. The pulmonary nodules are stable. No new nodules or consolidation seen. MEDIASTINUM: Thyroid lobes are symmetrical. The central trachea and the bronchi are widely patent. The heart size and great vessels are normal caliber. There is no pericardial effusion. The central trachea and the bronchi are widely patent. No abnormal size mediastinal lymph nodes seen. There is mild mural thickening of distal esophagus. There is soft tissue density seen in the upper mid esophagus. PLEURA: There is no pleural effusion. No pleural mass or thickening. AXILLA: There are small bilateral axillary lymph nodes. Largest lymph node in the right axilla measures 1.4 cm on axial image 6, series 3. The chest wall appears unremarkable. UPPER ABDOMEN: Visualized liver, spleen, pancreas and bilateral adrenal glands are unremarkable. Scattered colonic diverticuli and stool is seen. OSSEOUS STRUCTURES: There is mild spondylosis throughout the lower dorsal and upper lumbar spine. CT/CT chest wo con IMPRESSION: Multiple bilateral pulmonary nodules are stable. There is mild mural thickening of distal esophagus and soft tissue density in the upper/ mid esophagus similar to previous study. Correlate with the barium swallow. Diffuse emphysema.
== END 2020-06-05 09:29 | disposition home or self-care (01) ==
LOC: HO.CT 09:28
PROVIDERS: Visit Provider Hospitalist
DX: R91.8 Other nonspecific abnormal finding of lung field (principal)
CPT/HCPCS: 71250

== ENCOUNTER → 2020-06-06 10:02 | Outpatient (BNVA) | payer MEDICARE, MEDICAID, SELFPAY | PROVIDERS: PCP Internal Medicine; Visit Provider Hospitalist | DX: Z01.818 Encounter for other preprocedural examination (principal); J43.2 Centrilobular emphysema; R91.8 Other nonspecific abnormal finding of lung field; G47.33 Obstructive sleep apnea (adult) (pediatric); K21.00 Gastro-esophageal reflux disease with esophagitis, without bleeding; Z99.89 Dependence on other enabling machines and devices; Z79.899 Other long term (current) drug therapy | CPT/HCPCS: 99212 ==

== ENCOUNTER 2020-07-05 07:46 | Day surgery (SDC) | payer MEDICARE, MEDICAID, SELFPAY ==
--- NOTE | 2020-03-13 12:00 | HO.ANESPROP2 ---
HPI - Anesthesia Eval Consult details Narrative: 54yo M for Upper Endoscopy with Balloon Dilitation Last EGD 01/27/20 with TIVA PMF[facility] Past Medical History Medical History (Updated 03/09/20 @ 11:08 by Georgia Pitt) Anxiety Asthma Asthma-COPD overlap syndrome Back pain Chronic pain COPD (chronic obstructive pulmonary disease) Dysphagia GERD (gastroesophageal reflux disease) High cholesterol History of colitis History of esophageal spasm History of IBS Hx of allergic rhinitis Hx of chest pain Hx of goiter Hx of multiple pulmonary nodules Hx of renal calculi Hypertension Hypoglycemia KATHLEEN on CPAP Osteoarthritis of both hips Panic attacks PTSD (post-traumatic stress disorder) Pulmonary nodules Family History Family History (Updated 03/14/20 @ 11:35 by Charmaine Rodas CMA) Father No problems noted. Mother No problems noted. Surgical History Surgical History (Updated 03/09/20 @ 11:40 by Georgia Pitt) History of nasal surgery Hx of cervical discectomy Hx of colonoscopy Hx of endoscopy Hx of esophagogastroduodenoscopy Hx of left inguinal hernia repair Hx of tonsillectomy Hx of transurethral resection of prostate Social History Social History (Updated 03/14/20 @ 11:36 by Charmaine Rodas [employer]) Alcohol intake: never Smoking Status: Former smoker Meds Allergies Allergy/AdvReac Type Severity Reaction Status Date / Time metronidazole [From FLAGYL] Allergy Unknown RASH Verified 03/09/20 11:09 tree and shrub pollen [TREE] Allergy Unknown UNK Verified 03/09/20 11:09 dexamethasone AdvReac Unknown palpitatiio Verified 03/09/20 11:09 ns fluticasone furoate AdvReac Unknown palpitations, Verified 03/09/20 11:09 [Breo Ellipta] high BP umeclidinium AdvReac Unknown palpitation Verified 03/09/20 11:09 [Incruse Ellipta] s Bee sting Allergy Unknown Hives/Difficulty Uncoded 03/09/20 11:09 breathing Clindamycin HCl Allergy Unknown Hives Uncoded 03/09/20 11:09 ENVIRONMENTAL Allergy Unknown UNKNOWN Uncoded 03/09/20 11:09 TYLENOL ES Allergy Unknown UNKNOWN Uncoded 03/09/20 11:09 Home Medications Medication Instructions Recorded Confirmed Type albuterol sulfate 90 mcg/actuation 2 puff INHALATION Q4-6H PRN 12/23/19 03/14/20 History aerosol inhaler baclofen 10 mg tablet 5 mg PO BID 12/23/19 03/14/20 History cyclobenzaprine 10 mg tablet 10 mg PO TID PRN 12/23/19 03/14/20 History diclofenac sodium 1 % topical gel g TOPICAL DAILY 12/23/19 03/14/20 History epinephrine 0.3 mg/0.3 mL IM DIRECTED PRN 12/23/19 03/14/20 History injection, auto-injector famotidine 20 mg tablet 20 mg PO BEDTIME PRN 12/23/19 03/14/20 History hydroxyzine pamoate 25 mg capsule 25 mg PO BEDTIME PRN 12/23/19 03/14/20 History hyoscyamine sulfate 0.125 mg 0.125 mg PO Q4H PRN 12/23/19 03/14/20 History disintegrating tablet ibuprofen 600 mg tablet 600 mg PO QID PRN 12/23/19 03/14/20 History ipratropium 20 mcg-albuterol 100 1 puff PO Q6H 12/23/19 03/14/20 History mcg/actuation mist for inhalation lactulose 10 gram/15 mL oral 15 ml PO DAILY 12/23/19 03/14/20 History solution levalbuterol tartrate 45 2 puff PO Q6H PRN 12/23/19 03/14/20 History mcg/actuation aerosol inhaler levocetirizine 5 mg tablet 5 mg PO DIRECTED 12/23/19 03/14/20 History lidocaine HCl 2 % mucosal solution 15 ml PO Q3H PRN 12/23/19 03/14/20 History lisinopril 5 mg tablet 5 mg PO DAILY 12/23/19 03/14/20 History methocarbamol 750 mg tablet 750 mg PO QID 12/23/19 03/14/20 History naproxen 500 mg tablet 500 mg PO Q12H PRN 12/23/19 03/14/20 History omega-3 acid ethyl esters 1 gram 2 cap PO BID 12/23/19 03/14/20 History capsule oxycodone 15 mg tablet 15 mg PO BID PRN 12/23/19 03/14/20 History phenazopyridine 100 mg tablet 100 mg PO Q8H PRN 12/23/19 03/14/20 History simethicone 180 mg capsule 180 mg PO BID PRN 12/23/19 03/14/20 History tramadol 50 mg tablet 50 mg PO Q8H PRN 12/23/19 03/14/20 History flu vac [id number] 36mos up(PF) ml IM ONCE 01/10/20 03/14/20 History budesonide-formoterol HFA 80 2 puff PO BID 02/11/20 03/14/20 History mcg-4.5 mcg/actuation aerosol inhaler Exam Exam Date and Time: March 13, 2020 1200 Pertinent Lab Results Pertinent Lab Results: Laboratory Tests 08/11/19 03/10/20 10:45 08:03 WBC 6.1 Hgb 14.9 Hct 43.1 Plt Count 277 Sodium 142 Potassium 4.2 Chloride 105 Carbon Dioxide 30 H BUN 13 Creatinine 0.86 Narrative Narrative: EKG 10/2019: SR, nonspecific changes in anterior leads, cannot exclude old infarct (no change from previous) Echo 10/2018: LVEF 60-65%, mild DD, no signif valve pathology Exercise stress 12/2018: 8.9 METS without angina, nml BP response, no EKG evidence of ischemia, echo component also nml 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 Anomaly is benign in nature and doesn't need any treatment Assessment and Plan Assessment Anesthesia Assessment: Chart Reviewed
--- NOTE | 2020-07-03 14:39 | HO.ANESPROP2 ---
Documented by User: Sharmila Nicole 07/03/20 14:50 HPI - Anesthesia Eval Consult details Narrative: 54yo M for Upper Endoscopy with Balloon Dilation Last EGD with TIVA 01/2020 Routine cardiology office visit 04/2020 - symptoms of SOB/tachy unlikely cardiac and r/t GI issues based on cardiac testing [facility] Active Problems Active Problems: All Active Problems (Updated 06/06/20 @ 22:27 by Johnathan Cerda MD) Cervical radiculopathy (Acute) Pre-op evaluation (Acute) Esophageal stricture (Acute) Urgency of micturition (Acute) Palpitation (Acute) Bladder spasm (Acute) Hx of chest pain (Acute) KATHLEEN on CPAP (Acute) High cholesterol (Acute) Hypertension (Acute) Shortness of breath (Acute) Hypoglycemia (Acute) Asthma-COPD overlap syndrome (Acute) Pulmonary nodules (Acute) GERD (gastroesophageal reflux disease) (Acute) COPD (chronic obstructive pulmonary disease) (Acute) Anxiety (Acute) Past Medical History Medical History Anxiety Asthma Asthma-COPD overlap syndrome Back pain Chronic pain COPD (chronic obstructive pulmonary disease) Dysphagia GERD (gastroesophageal reflux disease) High cholesterol History of colitis History of esophageal spasm History of IBS Hx of allergic rhinitis Hx of chest pain Hx of goiter Hx of multiple pulmonary nodules Hx of renal calculi Hypertension Hypoglycemia KATHLEEN on CPAP Osteoarthritis of both hips Panic attacks PTSD (post-traumatic stress disorder) Pulmonary nodules Shortness of breath Family History Family History Father No problems noted. Mother No problems noted. Surgical History Surgical History (Updated 06/29/20 @ 16:12 by Georgia Pitt) History of nasal surgery Hx of cervical discectomy Hx of colonoscopy Hx of endoscopy Hx of esophagogastroduodenoscopy Hx of left inguinal hernia repair Hx of tonsillectomy Hx of transurethral resection of prostate Social History Social History Alcohol intake: never Smoking Status: Former smoker Use of substances other than those prescribed or required for medical reasons: No Advance Directives: No Advance Directives Information Provided: Yes Meds Allergies Allergy/AdvReac Type Severity Reaction Status Date / Time metronidazole [From FLAGYL] Allergy Severe RASH Verified 07/05/20 08:10 tree and shrub pollen [TREE] Allergy Severe Rash Verified 07/05/20 08:10 dexamethasone AdvReac Severe palpitatiio Verified 07/05/20 08:10 ns fluticasone furoate AdvReac Severe palpitations, Verified 07/05/20 08:10 [Breo Ellipta] high BP umeclidinium AdvReac Severe palpitation Verified 07/05/20 08:10 [Incruse Ellipta] s Bee sting Allergy Severe Hives/Difficulty Uncoded 06/06/20 10:34 breathing Clindamycin HCl Allergy Severe Hives Uncoded 06/06/20 10:34 ENVIRONMENTAL Allergy Severe Rash Uncoded 06/06/20 10:34 Home Medications Medication Instructions Recorded Confirmed Last Taken Type albuterol sulfate 90 mcg/actuation 2 puff INHALATION Q4-6H PRN 12/23/19 06/06/20 Unknown History aerosol inhaler cyclobenzaprine 10 mg tablet 10 mg PO TID PRN 12/23/19 06/06/20 Unknown History diclofenac sodium 1 % topical gel g TOPICAL DAILY 12/23/19 06/06/20 Unknown History epinephrine 0.3 mg/0.3 mL IM DIRECTED PRN 12/23/19 06/06/20 Unknown History injection, auto-injector hydroxyzine pamoate 25 mg capsule 25 mg PO BEDTIME PRN 12/23/19 06/06/20 Unknown History ibuprofen 600 mg tablet 600 mg PO QID PRN 12/23/19 06/06/20 Unknown History lactulose 10 gram/15 mL oral 15 ml PO DAILY 12/23/19 06/06/20 Unknown History solution levalbuterol tartrate 45 2 puff PO Q6H PRN 12/23/19 06/06/20 Unknown History mcg/actuation aerosol inhaler levocetirizine 5 mg tablet 5 mg PO DIRECTED 12/23/19 06/06/20 Unknown History lidocaine HCl 2 % mucosal solution 15 ml PO Q3H PRN 12/23/19 06/06/20 Unknown History lisinopril 5 mg tablet 5 mg PO DAILY 12/23/19 06/06/20 Unknown History naproxen 500 mg tablet 500 mg PO Q12H PRN 12/23/19 06/06/20 Unknown History omega-3 acid ethyl esters 1 gram 2 cap PO BID 12/23/19 06/06/20 Unknown History capsule phenazopyridine 100 mg tablet 100 mg PO Q8H PRN 12/23/19 06/06/20 Unknown History simethicone 180 mg capsule 180 mg PO BID PRN 12/23/19 06/06/20 Unknown History tramadol 50 mg tablet 50 mg PO Q8H PRN 12/23/19 06/06/20 Unknown History flu vac [id number] 36mos up(PF) ml IM ONCE 01/10/20 06/06/20 Unknown History budesonide-formoterol HFA 80 2 puff PO BID 02/11/20 06/06/20 Unknown History mcg-4.5 mcg/actuation aerosol inhaler oxycodone 20 mg tablet 20 mg PO BID PRN 04/13/20 06/06/20 Unknown History oxycodone 20 mg tablet,crush 20 mg PO Q12H 04/13/20 06/06/20 07/05/20 05:00 History resistant,extended release 12 hr multivitamin 1 tab PO DAILY 04/28/20 06/29/20 Unknown History pregabalin 25 mg capsule 25 mg PO BID 04/28/20 06/06/20 Unknown History diazepam 5 mg tablet 5 mg PO BID 06/06/20 06/29/20 Unknown History Exam Exam Date and Time: July 03, 2020 4419 Narrative Narrative: EKG 10/2019: SR, nonspecific changes in anterior leads, cannot exclude old infarct (no change from previous) Echo 10/2018: LVEF 60-65%, mild DD, no signif valve pathology Exercise stress 12/2018: 8.9 METS without angina, nml BP response, no EKG evidence of ischemia, echo component also nml 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 Anomaly is benign in nature and doesn't need any treatment Assessment and Plan Assessment Anesthesia Assessment: Chart Reviewed Documented by User: Zenaida Rendon 07/05/20 08:53 [facility] Past Medical History Medical History Anxiety Asthma Asthma-COPD overlap syndrome Back pain Chronic pain COPD (chronic obstructive pulmonary disease) Dysphagia GERD (gastroesophageal reflux disease) High cholesterol History of colitis History of esophageal spasm History of IBS Hx of allergic rhinitis Hx of chest pain Hx of goiter Hx of multiple pulmonary nodules Hx of renal calculi Hypertension Hypoglycemia KATHLEEN on CPAP Osteoarthritis of both hips Panic attacks PTSD (post-traumatic stress disorder) Pulmonary nodules Shortness of breath Family History Family History Father No problems noted. Mother No problems noted. Surgical History Surgical History (Updated 06/29/20 @ 16:12 by Georgia Pitt) History of nasal surgery Hx of cervical discectomy Hx of colonoscopy Hx of endoscopy Hx of esophagogastroduodenoscopy Hx of left inguinal hernia repair Hx of tonsillectomy Hx of transurethral resection of prostate Social History Social History Alcohol intake: never Smoking Status: Former smoker Use of substances other than those prescribed or required for medical reasons: No Advance Directives: No Advance Directives Information Provided: Yes Meds Allergies Allergy/AdvReac Type Severity Reaction Status Date / Time metronidazole [From FLAGYL] Allergy Severe RASH Verified 07/05/20 08:10 tree and shrub pollen [TREE] Allergy Severe Rash Verified 07/05/20 08:10 dexamethasone AdvReac Severe palpitatiio Verified 07/05/20 08:10 ns fluticasone furoate AdvReac Severe palpitations, Verified 07/05/20 08:10 [Breo Ellipta] high BP umeclidinium AdvReac Severe palpitation Verified 07/05/20 08:10 [Incruse Ellipta] s Bee sting Allergy Severe Hives/Difficulty Uncoded 06/06/20 10:34 breathing Clindamycin HCl Allergy Severe Hives Uncoded 06/06/20 10:34 ENVIRONMENTAL Allergy Severe Rash Uncoded 06/06/20 10:34 Home Medications Medication Instructions Recorded Confirmed Last Taken Type albuterol sulfate 90 mcg/actuation 2 puff INHALATION Q4-6H PRN 12/23/19 06/06/20 Unknown History aerosol inhaler cyclobenzaprine 10 mg tablet 10 mg PO TID PRN 12/23/19 06/06/20 Unknown History diclofenac sodium 1 % topical gel g TOPICAL DAILY 12/23/19 06/06/20 Unknown History epinephrine 0.3 mg/0.3 mL IM DIRECTED PRN 12/23/19 06/06/20 Unknown History injection, auto-injector hydroxyzine pamoate 25 mg capsule 25 mg PO BEDTIME PRN 12/23/19 06/06/20 Unknown History ibuprofen 600 mg tablet 600 mg PO QID PRN 12/23/19 06/06/20 Unknown History lactulose 10 gram/15 mL oral 15 ml PO DAILY 12/23/19 06/06/20 Unknown History solution levalbuterol tartrate 45 2 puff PO Q6H PRN 12/23/19 06/06/20 Unknown History mcg/actuation aerosol inhaler levocetirizine 5 mg tablet 5 mg PO DIRECTED 12/23/19 06/06/20 Unknown History lidocaine HCl 2 % mucosal solution 15 ml PO Q3H PRN 12/23/19 06/06/20 Unknown History lisinopril 5 mg tablet 5 mg PO DAILY 12/23/19 06/06/20 Unknown History naproxen 500 mg tablet 500 mg PO Q12H PRN 12/23/19 06/06/20 Unknown History omega-3 acid ethyl esters 1 gram 2 cap PO BID 12/23/19 06/06/20 Unknown History capsule phenazopyridine 100 mg tablet 100 mg PO Q8H PRN 12/23/19 06/06/20 Unknown History simethicone 180 mg capsule 180 mg PO BID PRN 12/23/19 06/06/20 Unknown History tramadol 50 mg tablet 50 mg PO Q8H PRN 12/23/19 06/06/20 Unknown History flu vac [id number] 36mos up(PF) ml IM ONCE 01/10/20 06/06/20 Unknown History budesonide-formoterol HFA 80 2 puff PO BID 02/11/20 06/06/20 Unknown History mcg-4.5 mcg/actuation aerosol inhaler oxycodone 20 mg tablet 20 mg PO BID PRN 04/13/20 06/06/20 Unknown History oxycodone 20 mg tablet,crush 20 mg PO Q12H 04/13/20 06/06/20 07/05/20 05:00 History resistant,extended release 12 hr multivitamin 1 tab PO DAILY 04/28/20 06/29/20 Unknown History pregabalin 25 mg capsule 25 mg PO BID 04/28/20 06/06/20 Unknown History diazepam 5 mg tablet 5 mg PO BID 06/06/20 06/29/20 Unknown History Exam Airway Mallampati Class: III (Small mouth) TM Dist: >3cm Neck ROM: Limited Partial: Lower Loose/Missing/Broken Teeth: Yes and Lower Heart: RRR Lungs: CTA Assessment and Plan Assessment Anesthesia Assessment: Anesthesia Plan Discussed and Chart Reviewed Final Anesthetic Review NPO: Yes ASA Class: III Final Preanesthetic Review: Meds/Allgs Chart Reviewed, Consent Obtained/Reviewed and Anes Risks/Benef Reviewed Patient Risk: Intermediate Procedure Risk: Intermediate Anesthetic Plan Anesthetic Plan: MAC: Disposition: Standard PACU
[2020-07-05 08:24] VITALS: BP 140/91; PULSE 65; RESP 18; TEMP 36.7; O2SAT 97; BMI 29.6
[2020-07-05] MEDS: Lactated Ringers 1,000 ML 100 ML IVCONT (08:35)
--- NOTE | 2020-07-05 09:25 | MHC.SHP ---
Pre-Procedural Eval Section B Chief Complaint: Dysphagia Relevant Family History (Specify if Yes): No Relevant Social History: None Present Medications: see Short Stay Collaborative assessment Medical History: Significant History (Anxiety Asthma Asthma-COPD overlap syndrome Back pain Chronic pain COPD (chronic obstructive pulmonary disease) Dysphagia GERD (gastroesophageal reflux disease) High cholesterol History of colitis History of esophageal spasm History of IBS Hx of allergic rhinitis Hx of chest pain Hx of goiter Hx of ) History of Previous Operations: Relevant previous surgery/procedure and date(s) (History of nasal surgery Hx of cervical discectomy Hx of colonoscopy Hx of endoscopy Hx of esophagogastroduodenoscopy Hx of left inguinal hernia repair Hx of tonsillectomy Hx of transurethral resection of prostate) Allergies: Allergies Allergy/AdvReac Type Severity Reaction Status Date / Time metronidazole [From FLAGYL] Allergy Severe RASH Verified 07/05/20 08:10 tree and shrub pollen [TREE] Allergy Severe Rash Verified 07/05/20 08:10 dexamethasone AdvReac Severe palpitatiio Verified 07/05/20 08:10 ns fluticasone furoate AdvReac Severe palpitations, Verified 07/05/20 08:10 [Breo Ellipta] high BP umeclidinium AdvReac Severe palpitation Verified 07/05/20 08:10 [Incruse Ellipta] s Bee sting Allergy Severe Hives/Difficulty Uncoded 06/06/20 10:34 breathing Clindamycin HCl Allergy Severe Hives Uncoded 06/06/20 10:34 ENVIRONMENTAL Allergy Severe Rash Uncoded 06/06/20 10:34 Review of Systems Sugical H&P ROS: Negative: Constitution, Cardiovascular, Respiratory, Neurological, Psychiatric, Hem-Onc, Allergic/Immunologic, Gastrointestinal, Genitourinary, Musculoskeletal, Integumentary, Endocrine and Eyes/Ears/Nose/Throat Exam Surgical H&P Exam: Normal: HEENT, Normal: Heart, Normal: Lungs, Normal: Extremities, Normal: Abdomen, Normal: Skin and Normal: Neurological Plan Diagnosis/Plan: Unchanged I have reviewed the history and physical and performed a pertinent physical examination on my patient. No changes have occurred unless specified.
--- NOTE | 2020-07-05 09:29 | PM.OP ---
Brief Operative Note Date of Service: 07/05/20 Pre-op diagnosis: dysphagia Post-op diagnosis: same Procedure: see op note Surgeon: Wilmar Beal MD Anesthesia: MAC Estimated blood loss (mL): 0 Condition: stable Disposition: PACU
--- NOTE | 2020-07-05 09:29 | W.PM.OPN ---
Operative Note Operative Note Date of Service: 07/05/20 Narrative: Procedure Description: EGD FLEXIBLE TRANSORAL UPPER GASTROINTESTINAL ENDOSCOPY UPPER ENDOSCOPY Consent: Indications for the procedure and potential complications of bleeding, perforation, reaction to medications and missed diagnosis were discussed with the patient and informed consent was obtained. Instrument: Olympus GIF H 190 J mid size upper endoscope Monitoring: Vital signs and clinical assessment, continuous EKG monitoring, Pulse oximetry, Carbon Dioxide monitoring and blood pressure monitoring were done throughout the procedure. Procedure: The patient was placed in the left lateral decubitis position and pre-procedure medications were administered and a bite block was placed. The endoscope was inserted into the mouth and advanced under direct vision to the third part of duodenum. A careful inspection was made as the upper endoscope was withdrawn including a retroflexed examination of the proximal stomach; Findings and interventions are described below. Findings: Larynx:normal Esophagus: GE junction at 37 cm, diaphragm hiatus at 37 cm, no varices or esophagitis. 17 mm bougie used to dilate over a savary wire, a superficial tear was seen in the proximal esophagus (cervical portion). Stomach: Normal mucosa. Grade 2 flap valve on retroflexed examination of the cardia. Duodenum: Normal bulb and descending duodenum, bx taken Intervention: savary dilation Impression/Findings: stricture, possibly related to the cervical spine plate as noted on prior ba swallow PLAN: allow regular diet as tolerated today can use magic mouthwash or tylenol for comfort, pain relief
[2020-07-05 10:09] VITALS: BP 133/77; PULSE 120; RESP 16; TEMP 37.1; O2SAT 94
[2020-07-05 10:24] VITALS: BP 105/63; PULSE 103; RESP 17; TEMP 37.1; O2SAT 94
[2020-07-05] MEDS: Mag&Al/Sim/Diphenhyd/Lidocaine 10 ML ORAL.SUSP PO (10:34)
== END 2020-07-05 10:56 | disposition home or self-care (01) ==
PROVIDERS: PCP Internal Medicine; Visit Provider Internal Medicine Gastroenterology
PROC: 0DJ08ZZ Inspection of Upper Intestinal Tract, Via Natural or Artificial Opening Endoscopic (ICD-10-PCS; CPT 43235; principal; 2020-07-05 09:30)
DX: K22.2 Esophageal obstruction (principal); K44.9 Diaphragmatic hernia without obstruction or gangrene; K21.9 Gastro-esophageal reflux disease without esophagitis; J44.9 Chronic obstructive pulmonary disease, unspecified; G47.33 Obstructive sleep apnea (adult) (pediatric); I10 Essential (primary) hypertension; Z79.899 Other long term (current) drug therapy; Z79.51 Long term (current) use of inhaled steroids; Z88.8 Allergy status to other drugs, medicaments and biological substances; Z87.891 Personal history of nicotine dependence
CPT/HCPCS: 43248; C1769; J2250; J3010

== ENCOUNTER 2020-07-06 08:59 | Emergency (ER) | payer MEDICARE, MEDICAID, SELFPAY ==
--- NOTE | ~2020-07-06 | XR_ITS ---
EXAMINATION: CHEST AND THE SOFT TISSUE NECK CLINICAL INFORMATION: Difficulty swallowing. COMPARISON: CT chest 06/05/2020 TECHNIQUE: 2 views chest. 2 views soft tissue neck. FINDINGS: Chest: The lungs are well-expanded and clear of acute process. The heart size and pulmonary vascularity is normal. No gross bony abnormality seen. Soft tissue neck: There is widely patent airway. The prevertebral soft tissues are normal. No gross bony abnormality seen. Patient is an intravenous involving XR/XR chest 2V IMPRESSION: Unremarkable chest exam. Unremarkable soft tissue neck.
--- NOTE | ~2020-07-06 | XR_ITS ---
EXAMINATION: CHEST AND THE SOFT TISSUE NECK CLINICAL INFORMATION: Difficulty swallowing. COMPARISON: CT chest 06/05/2020 TECHNIQUE: 2 views chest. 2 views soft tissue neck. FINDINGS: Chest: The lungs are well-expanded and clear of acute process. The heart size and pulmonary vascularity is normal. No gross bony abnormality seen. Soft tissue neck: There is widely patent airway. The prevertebral soft tissues are normal. No gross bony abnormality seen. Patient is an intravenous involving XR/XR soft tissue neck IMPRESSION: Unremarkable chest exam. Unremarkable soft tissue neck.
[2020-07-06 09:03] VITALS: BP 171/92; PULSE 98; RESP 18; TEMP 36.8; O2SAT 98; BMI 29.6
[2020-07-06 10:50] VITALS: BP 126/83; PULSE 67; RESP 16; O2SAT 98
[2020-07-06 12:30] VITALS: BP 135/93; PULSE 88; RESP 16; O2SAT 98
--- NOTE | 2020-07-06 12:42 | ED_ITS ---
HPI - General Adult General Chief complaint: General Medical Stated complaint: s/p surgery - diff swallowing Time Seen by Provider: 07/06/20 09:42 Source: patient Mode of arrival: ambulatory History of Present Illness HPI narrative: 54-year-old male with past medical history of anxiety, asthma/COPD, chronic pain, dysphagia, GERD, hyperlipidemia, esophageal spasm, IBS, PTSD, HTN, presenting to the ED complaining of difficulty swallowing/s pitting up pills this morning S/P endoscopy yesterday with associated elevated heart rate. Believes heart rate may have been elevated secondary to being nervous. Also reports bilateral rib discomfort, worse with palpation. Admits after procedure was swallowing without complications until today. Denies fever, chills, SOB, abdominal pain, nausea/vomiting Per operative notes there was stricture noted in esophagus possibly related to cervical spine plate as noted on a prior barium swallow study, patient does report has neurosurgery scheduled for the end of this month to have this plate removed. Onset (ago): day(s) Related Data Home Medications Medication Instructions Recorded Confirmed albuterol sulfate 90 mcg/actuation 2 puff INHALATION Q4-6H PRN 12/23/19 06/06/20 aerosol inhaler cyclobenzaprine 10 mg tablet 10 mg PO TID PRN 12/23/19 06/06/20 diclofenac sodium 1 % topical gel g TOPICAL DAILY 12/23/19 06/06/20 epinephrine 0.3 mg/0.3 mL IM DIRECTED PRN 12/23/19 06/06/20 injection, auto-injector hydroxyzine pamoate 25 mg capsule 25 mg PO BEDTIME PRN 12/23/19 06/06/20 ibuprofen 600 mg tablet 600 mg PO QID PRN 12/23/19 06/06/20 lactulose 10 gram/15 mL oral 15 ml PO DAILY 12/23/19 06/06/20 solution levalbuterol tartrate 45 2 puff PO Q6H PRN 12/23/19 06/06/20 mcg/actuation aerosol inhaler levocetirizine 5 mg tablet 5 mg PO DIRECTED 12/23/19 06/06/20 lidocaine HCl 2 % mucosal solution 15 ml PO Q3H PRN 12/23/19 06/06/20 lisinopril 5 mg tablet 5 mg PO DAILY 12/23/19 06/06/20 naproxen 500 mg tablet 500 mg PO Q12H PRN 12/23/19 06/06/20 omega-3 acid ethyl esters 1 gram 2 cap PO BID 12/23/19 06/06/20 capsule phenazopyridine 100 mg tablet 100 mg PO Q8H PRN 12/23/19 06/06/20 simethicone 180 mg capsule 180 mg PO BID PRN 12/23/19 06/06/20 tramadol 50 mg tablet 50 mg PO Q8H PRN 12/23/19 06/06/20 flu vac [id number] 36mos up(PF) ml IM ONCE 01/10/20 06/06/20 budesonide-formoterol HFA 80 2 puff PO BID 02/11/20 06/06/20 mcg-4.5 mcg/actuation aerosol inhaler oxycodone 20 mg tablet 20 mg PO BID PRN 04/13/20 06/06/20 oxycodone 20 mg tablet,crush 20 mg PO Q12H 04/13/20 06/06/20 resistant,extended release 12 hr multivitamin 1 tab PO DAILY 04/28/20 06/29/20 pregabalin 25 mg capsule 25 mg PO BID 04/28/20 06/06/20 diazepam 5 mg tablet 5 mg PO BID 06/06/20 06/29/20 Previous Rx's Medication Instructions Recorded dicyclomine 20 mg tablet 20 mg PO TID 30 Days #90 tab 12/28/19 ipratropium 20 mcg-albuterol 100 1 puff INHALATION QID 30 Days #4 g 01/10/20 mcg/actuation mist for inhalation sucralfate 1 gram tablet 1 g PO BID #30 tab 01/11/20 atorvastatin 20 mg tablet 20 mg PO DAILY 30 Days #30 tab 01/25/20 fluticasone propionate 110 2 puff INHALATION BID 30 Days #12 g 02/11/20 mcg/actuation HFA aerosol inhaler prednisone 20 mg tablet 20 mg PO DAILY 5 Days #5 tab 03/09/20 famotidine 40 mg tablet 40 mg PO DAILY #30 tab 03/14/20 magic mouthwash 1:1:1 of maalox, 10 ml PO TID PRN #1 ea 03/14/20 benadryl 12.5mg/5ml and viscous lidociane 2% hyoscyamine sulfate 0.125 mg 0.125 mg PO Q4H PRN #120 tab 04/03/20 disintegrating tablet colesevelam 625 mg tablet 1,250 mg PO BID 30 Days #120 tab 04/21/20 lansoprazole 15 mg capsule,delayed 15 mg PO BID #90 cap 05/30/20 release sucralfate 100 mg/mL oral 10 ml PO TID 30 Days #900 ml 06/06/20 suspension oxybutynin chloride 5 mg tablet 5 mg PO Q12H PRN #90 tab 06/19/20 Magic Mouthwash 10 ml PO TID #240 ml 07/05/20 Diphen/Lido/Antacid 1:1:1 Allergies Allergy/AdvReac Type Severity Reaction Status Date / Time metronidazole [From FLAGYL] Allergy Severe RASH Verified 07/06/20 09:10 tree and shrub pollen [TREE] Allergy Severe Rash Verified 07/06/20 09:10 dexamethasone AdvReac Severe palpitatiio Verified 07/06/20 09:10 ns fluticasone furoate AdvReac Severe palpitations, Verified 07/06/20 09:10 [Breo Ellipta] high BP umeclidinium AdvReac Severe palpitation Verified 07/06/20 09:10 [Incruse Ellipta] s Bee sting Allergy Severe Hives/Difficulty Uncoded 06/06/20 10:34 breathing Clindamycin HCl Allergy Severe Hives Uncoded 06/06/20 10:34 ENVIRONMENTAL Allergy Severe Rash Uncoded 06/06/20 10:34 Review of Systems Review of Systems: Constitutional: No Fever, No Chills ENT/Mouth: No Hoarseness, + sore throat, No Rhinorrhea, + Swallowing Difficulty Eyes: No Swelling, No Redness, No Foreign Body, No Discharge Cardiovascular: +bilateral rib pain, No SOB, No Dyspnea on Exertion, No Edema, No Palpitations Respiratory: No Cough, No Wheezing Gastrointestinal: No Nausea, No Vomiting, No Abdominal pain Musculoskeletal: No joint pain Skin: No Skin Lesions, No rash Neuro: No Weakness, No Numbness, Yes all other systems are reviewed and are negative PMFSH Past Medical History Attestation statement: The following information was validated with the patient. Medical History (Updated 07/06/20 @ 12:44 by SERENA Oliva) Anxiety Asthma Asthma-COPD overlap syndrome Back pain Chronic pain COPD (chronic obstructive pulmonary disease) Dysphagia GERD (gastroesophageal reflux disease) High cholesterol History of colitis History of esophageal spasm History of IBS Hx of allergic rhinitis Hx of chest pain Hx of goiter Hx of multiple pulmonary nodules Hx of renal calculi Hypertension Hypoglycemia KATHLEEN on CPAP Osteoarthritis of both hips Panic attacks PTSD (post-traumatic stress disorder) Pulmonary nodules Shortness of breath Surgical History (Updated 06/29/20 @ 16:12 by Georgia Pitt) History of nasal surgery Hx of cervical discectomy Hx of colonoscopy Hx of endoscopy Hx of esophagogastroduodenoscopy Hx of left inguinal hernia repair Hx of tonsillectomy Hx of transurethral resection of prostate Family History Family History Father No problems noted. Mother No problems noted. Social History Social History Alcohol intake: never Smoking Status: Unknown if ever smoked Use of substances other than those prescribed or required for medical reasons: No Advance Directives: No Advance Directives Information Provided: No Physical Exam Vital Signs: Vital Signs: Last Vital Signs Temp 98.2 F 07/06/20 09:03 Pulse 88 07/06/20 12:30 Resp 16 07/06/20 12:30 BP 135/93 H 07/06/20 12:30 Pulse Ox 98 07/06/20 12:30 Body Mass Index 29.6 Const: General: cooperative, healthy appearing, well developed, alert and awake Orientation/consciousness: patient oriented x3 Limitations: no limitations HENMT: Head: Yes normal to inspection Ears: hearing grossly normal bilaterally General nose exam: Normal external nose present Face and sinus: Yes normal facial exam Mouth: Normal oral and palatal mucosa present, tongue normal, oropharynx normal and moist mucous membranes Throat: Yes posterior oropharynx normal, Yes tonsils normal, Yes uvula midline, No peritonsillar mass, No uvula laterally displaced and No uvular edema Eyes: General: appearance normal, both eyes and all related structures EOM: EOMs intact bilaterally Neck: Neck: Yes normal visual inspection, Yes no meningeal signs, Yes trachea midline, Yes supple and No anterior neck swelling Chest: Chest palpation & inspection: normal inspection of the chest, no crepitus and tenderness (Mild bilateral rib tenderness noted) Resp: Effort & Inspection: normal respiratory effort and no stridor Auscultation: clear to auscultation bilaterally, no crackles and no wheezes Cardio: Rate: regular rate Heart sounds: S1 normal heart sound present and S2 normal heart sound present GI: Inspection: Yes normal to inspection Palpation (GI): Soft to palpation, nontender and no guarding Skin: Rashes: no rashes Wounds: no wounds Neuro: General: patient oriented x3 and no meningeal signs Gait exam (Neuro): Normal gait present Extrem: General: Yes normal to inspection Course Course Course Narrative: XR soft tissue neck IMPRESSION: Unremarkable chest exam. Unremarkable soft tissue neck > patient tolerated p.o. hieu adrianna, crackers, and Jell-O in the ED with out nausea, vomiting, or spitting up. Discussed x-ray results as well as worrisome signs symptoms and strict return precautions. Patient is follow-up with Neurosurgery in 2 weeks for plate removal. Medical Decision Making MDM Narrative Medical decision making narrative: 54-year-old male with past medical history of anxiety, asthma/COPD, chronic pain, dysphagia, GERD, hyperlipidemia, esophageal spasm, IBS, PTSD, HTN, presenting to the ED complaining of difficulty swallowing/spitting up pills this morning S/P endoscopy yesterday with associated elevated heart rate. On exam VSS, NAD, physical exam as above. Concern for endoscopy complication including ?Perforation vs acute on chronic stricture vs anxiety. Low concern for ACS/PE or pneumonia Plan: Neck/CXR, PO challenege Discharge Plan Discharge Clinical Impression: Dysphasia Patient Disposition: Home, Self-Care Instructions: Esophageal Stricture (ED) Additional Instructions: Your x-rays were unremarkable today in the ED It is important that he follow up with GI as well as your neurosurgeon for your scheduled surgery Practice soft diet, avoid excessively chewy/sticky foods until your scheduled surgical procedure If you develop swelling difficulties, choking, shortness of breath, oral swelling return to the ED immediately Prescriptions: No Action dicyclomine 20 mg tablet 20 mg PO TID 30 Days Qty: 90 RF: 3 sucralfate [Carafate] 1 gram tablet 1 g PO BID Qty: 30 RF: 2 atorvastatin 20 mg tablet 20 mg PO DAILY 30 Days Qty: 30 RF: 1 prednisone 20 mg tablet 20 mg PO DAILY 5 Days Qty: 5 RF: 0 hyoscyamine sulfate 0.125 mg tablet,disintegrating 0.125 mg PO Q4H PRN (Reason: muscle spasm) Qty: 120 RF: 0 colesevelam 625 mg tablet 1,250 mg PO BID 30 Days Qty: 120 RF: 3 lansoprazole 15 mg capsule,delayed release(DR/EC) 15 mg PO BID Qty: 90 RF: 2 oxybutynin chloride 5 mg tablet 5 mg PO Q12H PRN (Reason: bladder spasms) Qty: 90 RF: 2 Magic Mouthwash Diphen/Lido/Antacid 1:1:1 240 mL suspension 10 ml PO TID Qty: 240 RF: 0 omega-3 acid ethyl esters 1 gram capsule 2 cap PO BID RF: 0 levocetirizine 5 mg tablet 5 mg PO DIRECTED RF: 0 levalbuterol tartrate 45 mcg/actuation HFA aerosol inhaler 2 puff PO Q6H PRN (Reason: Wheezing) RF: 0 lisinopril 5 mg tablet 5 mg PO DAILY RF: 0 albuterol sulfate 90 mcg/actuation HFA aerosol inhaler 2 puff inhalation Q4-6H PRN (Reason: Wheezing) RF: 0 ibuprofen 600 mg tablet 600 mg PO QID PRN (Reason: Pain) RF: 0 diclofenac sodium 1 % gel topical DAILY RF: 0 epinephrine 0.3 mg/0.3 mL auto-injector IM DIRECTED PRN (Reason: Anaphylaxis) RF: 0 simethicone 180 mg capsule 180 mg PO BID PRN (Reason: Gastric Reflux) RF: 0 lactulose 10 gram/15 mL solution 15 ml PO DAILY RF: 0 naproxen 500 mg tablet 500 mg PO Q12H PRN (Reason: Pain) RF: 0 Lidocaine Viscous 2 % solution 15 ml PO Q3H PRNRF: 0 hydroxyzine pamoate 25 mg capsule 25 mg PO BEDTIME PRN (Reason: Sleep) RF: 0 cyclobenzaprine 10 mg tablet 10 mg PO TID PRN (Reason: Muscle Pain) RF: 0 tramadol 50 mg tablet 50 mg PO Q8H PRN (Reason: pain) RF: 0 phenazopyridine 100 mg tablet 100 mg PO Q8H PRN (Reason: pain) RF: 0 budesonide-formoterol 80-4.5 mcg/actuation HFA aerosol inhaler 2 puff PO BID RF: 0 fluticasone propionate 110 mcg/actuation HFA aerosol inhaler 2 puff inhalation BID 30 Days Qty: 12 RF: 11 oxycodone 20 mg tablet,oral only,ext.rel.12 hr 20 mg PO Q12H RF: 0 oxycodone 20 mg tablet 20 mg PO BID PRN (Reason: pain) RF: 0 diazepam 5 mg tablet 5 mg PO BID RF: 0 sucralfate [Carafate] 100 mg/mL suspension 10 ml PO TID 30 Days Qty: 900 RF: 2 famotidine 40 mg tablet 40 mg PO DAILY Qty: 30 RF: 3 magic mouthwash 1:1:1 of maalox, benadryl 12.5mg/5ml and viscous lidociane 2% 560 mL 10 ml PO TID PRN (Reason: dysphagia) Qty: 1 RF: 0 Afluria Qd 2019-(3yr up)(PF) 60 mcg (15 mcg x 4)/0.5 mL syringe IM ONCE RF: 0 Combivent Respimat 20-100 mcg/actuation mist 1 puff inhalation QID 30 Days Qty: 4 RF: 11 pregabalin 25 mg capsule 25 mg PO BID RF: 0 multivitamin Tablet 1 tab PO DAILY RF: 0 Referrals: Wilmar Beal MD [Physician] - 5 days Interventions: ED Discharge Assessment Last Done: 07/06/20 12:50 Discharge Date/Time: 07/06/20 13:00
== END 2020-07-06 13:00 | disposition home or self-care (01) ==
PROVIDERS: Emergency Provider Emergency Medicine Emergency Medical Services; PCP Internal Medicine
DX: R13.10 Dysphagia, unspecified (principal); F41.9 Anxiety disorder, unspecified; J44.9 Chronic obstructive pulmonary disease, unspecified; E78.5 Hyperlipidemia, unspecified; K21.9 Gastro-esophageal reflux disease without esophagitis; I10 Essential (primary) hypertension; F43.10 Post-traumatic stress disorder, unspecified; K22.4 Dyskinesia of esophagus; Z79.899 Other long term (current) drug therapy; Z79.02 Long term (current) use of antithrombotics/antiplatelets
CPT/HCPCS: 70360; 71046; 99283; 99284

== ENCOUNTER 2020-07-18 08:03 | Outpatient (REF) | payer MEDICARE, MEDICAID, SELFPAY ==
--- NOTE | 2020-07-18 09:20 | ECG_ITS ---
Hook-up date: 2020-07-18 08:10:00 Duration: 25:35:00 Test Indications: Palpitations Medications: [id number] QRS complexes 1 Ventricular ectopics which represent <1 % of total QRS comp. 3 Supraventricular ectopics which represent <1 % of total QRS comp. * Paced QRS complexs which represent % of total QRS comp. VENTRICULAR ECTOPY 1 Isolated 0 Bigeminal Cycles 0 Couplets 0 Runs 0 Beats in Runs * Beats LONGEST at * BPM at :: -- * Beats FASTEST at * BPM at :: -- SUPRAVENTRICULAR ECTOPY 3 Isolated 0 Couplets 0 Runs 0 Beats in Runs * Beats LONGEST at * BPM at :: -- * Beats FASTEST at * BPM at :: -- HEART RATES 41 MIN at 04:39:29 2020-07-19 65 AVG 117 MAX at 07:43:01 2020-07-19 LONGEST RR 1.5040 secs at 04:39:26 2020-07-19 S-T LEVELS Channel 1 - 128 mm at 08:10:00 2020-07-18 - 128 mm at 08:10:00 2020-07-18 Channel 2 - 128 mm at 08:10:00 2020-07-18 - 128 mm at 08:10:00 2020-07-18 Channel 3 - 128 mm at 02:72:91 -- - 128 mm at 02:72:91 Underlying rhythm is sinus; Average ventricular rate 65min; range 41-117/min; No significant ectopy, tachy or noé-arrhythmias; Patient did not report any symptoms in the diary Referred By: Shaye Castro Overread By: CARRILLO CHIU
== END 2020-07-18 08:04 | disposition home or self-care (01) ==
LOC: HO.CR 08:03
PROVIDERS: PCP Internal Medicine; Visit Provider Nurse Practitioner Family
DX: R00.2 Palpitations (principal)
CPT/HCPCS: 93226

== ENCOUNTER → 2020-07-25 08:04 | Outpatient (BNVA) | payer MEDICARE, MEDICAID, SELFPAY | PROVIDERS: PCP Internal Medicine; Visit Provider Internal Medicine Gastroenterology | CPT/HCPCS: Q3014 ==

== ENCOUNTER 2020-08-07 | Outpatient (REF) | payer MEDICARE, MEDICAID, SELFPAY | END 2020-08-07 00:01 | disposition home or self-care (01) | LOC: CF | PROVIDERS: Visit Provider Hospitalist | DX: J44.9 Chronic obstructive pulmonary disease, unspecified (principal); R91.8 Other nonspecific abnormal finding of lung field; G47.33 Obstructive sleep apnea (adult) (pediatric); K21.00 Gastro-esophageal reflux disease with esophagitis, without bleeding; Z99.89 Dependence on other enabling machines and devices | CPT/HCPCS: 99212 ==

== ENCOUNTER 2020-08-07 10:08 | Emergency (ER) | payer MEDICARE, MEDICAID, SELFPAY ==
[2020-08-07 10:30] VITALS: BP 122/73; PULSE 61; RESP 16; TEMP 36.3; O2SAT 99; BMI 29.0
--- NOTE | 2020-08-07 11:28 | ED_ITS ---
HPI - Back Pain/Injury General Chief Complaint: Back Pain/Injury Stated Complaint: back pain Time Seen by Provider: 08/07/20 10:44 Source: patient Mode of arrival: ambulatory History of Present Illness HPI Narrative: 55-year-old male with a past medical history anxiety, asthma, COPD, GERD, dysphagia, hyperlipidemia, colitis, esophageal spasm, IBS, HTN, panic attacks, PTSD, presenting to the ED complaining of right-sided low back pain s/p planting corn outside 2 days ago. Denies direct injury/trauma or fall, radiation of pain, numbness, tingling, weakness, urinary incontinence/retention, fever MD elicited complaint: back pain Related Data Home Medications Medication Instructions Recorded Confirmed cyclobenzaprine 10 mg tablet 10 mg PO TID PRN 12/23/19 06/06/20 diclofenac sodium 1 % topical gel g TOPICAL DAILY 12/23/19 06/06/20 epinephrine 0.3 mg/0.3 mL IM DIRECTED PRN 12/23/19 06/06/20 injection, auto-injector hydroxyzine pamoate 25 mg capsule 25 mg PO BEDTIME PRN 12/23/19 06/06/20 ibuprofen 600 mg tablet 600 mg PO QID PRN 12/23/19 06/06/20 lactulose 10 gram/15 mL oral 15 ml PO DAILY 12/23/19 06/06/20 solution levocetirizine 5 mg tablet 5 mg PO DIRECTED 12/23/19 06/06/20 lidocaine HCl 2 % mucosal solution 15 ml PO Q3H PRN 12/23/19 06/06/20 lisinopril 5 mg tablet 5 mg PO DAILY 12/23/19 06/06/20 naproxen 500 mg tablet 500 mg PO Q12H PRN 12/23/19 06/06/20 omega-3 acid ethyl esters 1 gram 2 cap PO BID 12/23/19 06/06/20 capsule phenazopyridine 100 mg tablet 100 mg PO Q8H PRN 12/23/19 06/06/20 simethicone 180 mg capsule 180 mg PO BID PRN 12/23/19 06/06/20 tramadol 50 mg tablet 50 mg PO Q8H PRN 12/23/19 06/06/20 flu vac [id number] 36mos up(PF) ml IM ONCE 01/10/20 06/06/20 oxycodone 20 mg tablet 20 mg PO BID PRN 04/13/20 06/06/20 oxycodone 20 mg tablet,crush 20 mg PO Q12H 04/13/20 06/06/20 resistant,extended release 12 hr multivitamin 1 tab PO DAILY 04/28/20 06/29/20 pregabalin 25 mg capsule 25 mg PO BID 04/28/20 06/06/20 diazepam 5 mg tablet 5 mg PO BID 06/06/20 06/29/20 Previous Rx's Medication Instructions Recorded dicyclomine 20 mg tablet 20 mg PO TID 30 Days #90 tab 12/28/19 sucralfate 1 gram tablet 1 g PO BID #30 tab 01/11/20 atorvastatin 20 mg tablet 20 mg PO DAILY 30 Days #30 tab 01/25/20 fluticasone propionate 110 2 puff INHALATION BID 30 Days #12 g 02/11/20 mcg/actuation HFA aerosol inhaler prednisone 20 mg tablet 20 mg PO DAILY 5 Days #5 tab 03/09/20 famotidine 40 mg tablet 40 mg PO DAILY #30 tab 03/14/20 magic mouthwash 1:1:1 of maalox, 10 ml PO TID PRN #1 ea 03/14/20 benadryl 12.5mg/5ml and viscous lidociane 2% hyoscyamine sulfate 0.125 mg 0.125 mg PO Q4H PRN #120 tab 04/03/20 disintegrating tablet colesevelam 625 mg tablet 1,250 mg PO BID 30 Days #120 tab 04/21/20 lansoprazole 15 mg capsule,delayed 15 mg PO BID #90 cap 05/30/20 release sucralfate 100 mg/mL oral 10 ml PO TID 30 Days #900 ml 06/06/20 suspension oxybutynin chloride 5 mg tablet 5 mg PO Q12H PRN #90 tab 06/19/20 Magic Mouthwash 10 ml PO TID #240 ml 07/05/20 Diphen/Lido/Antacid 1:1:1 Magic Mouthwash 10 ml PO TID #240 ml 07/25/20 Diphen/Lido/Antacid 1:1:1 240 mL suspension lactulose 10 gram/15 mL oral 10 g PO DAILY PRN #473 ml 07/25/20 solution acetaminophen [Tylenol Extra 500 mg PO Q6H PRN #20 tab 08/07/20 Strength] cyclobenzaprine 5 mg PO Q8H PRN 5 Days #14 tab 08/07/20 ipratropium 20 mcg-albuterol 100 1 puff INHALATION QID 30 Days #4 g 08/07/20 mcg/actuation mist for inhalation levalbuterol tartrate 45 2 puff PO Q6H PRN 30 Days #15 g 08/07/20 mcg/actuation aerosol inhaler lidocaine [Lidoderm] 1 patch TOPICAL DAILY PRN #30 ea 08/07/20 MDD remove after 12 hours naproxen 500 mg PO BID PRN 10 Days #20 tab 08/07/20 Allergies Allergy/AdvReac Type Severity Reaction Status Date / Time metronidazole [From FLAGYL] Allergy Severe RASH Verified 08/07/20 09:43 tree and shrub pollen [TREE] Allergy Severe Rash Verified 08/07/20 09:43 dexamethasone AdvReac Severe palpitatiio Verified 08/07/20 09:43 ns fluticasone furoate AdvReac Severe palpitations, Verified 08/07/20 09:43 [Breo Ellipta] high BP umeclidinium AdvReac Severe palpitation Verified 08/07/20 09:43 [Incruse Ellipta] s Bee sting Allergy Severe Hives/Difficulty Uncoded 07/25/20 08:05 breathing Clindamycin HCl Allergy Severe Hives Uncoded 07/25/20 08:05 ENVIRONMENTAL Allergy Severe Rash Uncoded 07/25/20 08:05 Review of Systems Review of Systems: Constitutional: No Fever, No Chills Cardiovascular: No Chest Pain, No SOB Respiratory: No Cough, No Sputum, No Wheezing Gastrointestinal: No Nausea, No Vomiting, No Diarrhea, No Abdominal pain Genitourinary: No Urinary Frequency, No Hematuria, No Urinary Incontinence/retention Musculoskeletal: +back pain, No Myalgias, No Joint Swelling Skin: No Skin Lesions, No rash Neuro: No Weakness, No Numbness, No Paresthesias Yes all other systems are reviewed and are negative [facility] Past Medical History Attestation statement: The following information was validated with the patient. Medical History (Updated 08/07/20 @ 11:33 by SERENA Oliva) Anxiety Asthma Asthma-COPD overlap syndrome Back pain Chronic pain COPD (chronic obstructive pulmonary disease) Dysphagia GERD (gastroesophageal reflux disease) High cholesterol History of colitis History of esophageal spasm History of IBS Hx of allergic rhinitis Hx of chest pain Hx of goiter Hx of multiple pulmonary nodules Hx of renal calculi Hypertension Hypoglycemia KATHLEEN on CPAP Osteoarthritis of both hips Panic attacks PTSD (post-traumatic stress disorder) Pulmonary nodules Shortness of breath Surgical History (Updated 08/07/20 @ 10:33 by Rhonda Castillo) H/O neck surgery History of nasal surgery Hx of cervical discectomy Hx of colonoscopy Hx of endoscopy Hx of esophagogastroduodenoscopy Hx of left inguinal hernia repair Hx of tonsillectomy Hx of transurethral resection of prostate Family History Family History Father No problems noted. Mother No problems noted. Social History Social History (Updated 07/25/20 @ 08:11 by Aylin Plummer CMA) Household Members: Family Alcohol intake: never Smoking Status: Unknown if ever smoked Smoked in Last 30 Days: No Use of substances other than those prescribed or required for medical reasons: No Advance Directives: No Advance Directives Information Provided: No Current occupational status: unemployed Physical Exam Vital Signs: Vital Signs: Last Vital Signs Temp 97.4 F 08/07/20 10:30 Pulse 61 08/07/20 10:30 Resp 16 08/07/20 10:30 BP 122/73 08/07/20 10:30 Pulse Ox 99 08/07/20 10:30 Body Mass Index 29.0 Const: General: cooperative, healthy appearing and no acute distress Orientation/consciousness: patient oriented x3 Limitations: no limitations HENMT: Head: Yes normal to inspection Ears: hearing grossly normal bilaterally General nose exam: Normal external nose present Face and sinus: Yes normal facial exam Eyes: General: appearance normal, both eyes and all related structures EOM: EOMs intact bilaterally Neck: Neck: Yes normal visual inspection and Yes no meningeal signs Resp: Effort & Inspection: normal respiratory effort Cardio: Rate: regular rate GI: Inspection: Yes normal to inspection Back/Spine/Pelvis: Other: No midline thoracic/lumbar spinous tenderness or step-offs. + right-sided lower lumbar MSK/buttock tenderness to palpation Skin: Rashes: no rashes Wounds: no wounds Neuro: Other: No saddle anesthesia. Strength intact throughout General: pa tient oriented x3, gait normal, tone normal, moves all extremities and no meningeal signs Gait exam (Neuro): Normal gait present Motor exam (neuro): 5/5 motor strength present throughout Extrem: General: Yes normal to inspection MDM - Back Pain/Injury MDM Narrative Medical decision making narrative: 55-year-old male with a past medical history anxiety, asthma, COPD, GERD, dysphagia, hyperlipidemia, colitis, esophageal spasm, IBS, HTN, panic attacks, PTSD, presenting to the ED complaining of right- sided low back pain s/p planting corn outside 2 days ago. On exam VS, NAD/well- appearing, no midline spinous tenderness are, no red flag symptoms. No saddle anesthesia. Likely MSK pain. Over the for cauda equina/cord compression or fracture Plan: Symptomatic treatment, PCP follow-up Discharge Plan Discharge Clinical Impression: Strain of lumbar region Qualifiers: Encounter type: initial encounter Qualified Code(s): S39.012A - Strain of muscle, fascia and tendon of lower back, initial encounter Patient Disposition: Home, Self-Care Instructions: Acute Low Back Pain (ED) Additional Instructions: Your pain is likely musculoskeletal Flexeril is a muscle relaxer, take at night as it makes you drowsy, do not drive, drink alcohol, or operate machinery while taking it Naproxen as an anti-inflammatory / pain medication, take with food Lidoderm patches are numbing patches, apply to painful area In addition take Tylenol at home If symptoms persist or worsen, pain becomes unbearable, you developed urinary retention or incontinence, or weakness return to the ED Prescriptions: New acetaminophen [Tylenol Extra Strength] 500 mg tablet 500 mg PO Q6H PRN (Reason: pain or fever) Qty: 20 RF: 0 lidocaine [Lidoderm] 5 % adhesive patch,medicated 1 patch topical DAILY MDD remove after 12 hours PRN (Reason: pain) Qty: 30 RF: 0 naproxen 500 mg tablet 500 mg PO BID PRN (Reason: pain) 10 Days Qty: 20 RF: 0 cyclobenzaprine 5 mg tablet 5 mg PO Q8H PRN (Reason: pain (scale score 7-10)) 5 Days Qty: 14 RF: 0 No Action dicyclomine 20 mg tablet 20 mg PO TID 30 Days Qty: 90 RF: 3 sucralfate [Carafate] 1 gram tablet 1 g PO BID Qty: 30 RF: 2 atorvastatin 20 mg tablet 20 mg PO DAILY 30 Days Qty: 30 RF: 1 prednisone 20 mg tablet 20 mg PO DAILY 5 Days Qty: 5 RF: 0 hyoscyamine sulfate 0.125 mg tablet,disintegrating 0.125 mg PO Q4H PRN (Reason: muscle spasm) Qty: 120 RF: 0 colesevelam 625 mg tablet 1,250 mg PO BID 30 Days Qty: 120 RF: 3 lansoprazole 15 mg capsule,delayed release(DR/EC) 15 mg PO BID Qty: 90 RF: 2 oxybutynin chloride 5 mg tablet 5 mg PO Q12H PRN (Reason: bladder spasms) Qty: 90 RF: 2 Magic Mouthwash Diphen/Lido/Antacid 1:1:1 240 mL suspension 10 ml PO TID Qty: 240 RF: 0 omega-3 acid ethyl esters 1 gram capsule 2 cap PO BID RF: 0 levocetirizine 5 mg tablet 5 mg PO DIRECTED RF: 0 lisinopril 5 mg tablet 5 mg PO DAILY RF: 0 ibuprofen 600 mg tablet 600 mg PO QID PRN (Reason: Pain) RF: 0 diclofenac sodium 1 % gel topical DAILY RF: 0 epinephrine 0.3 mg/0.3 mL auto-injector IM DIRECTED PRN (Reason: Anaphylaxis) RF: 0 simethicone 180 mg capsule 180 mg PO BID PRN (Reason: Gastric Reflux) RF: 0 lactulose 10 gram/15 mL solution 15 ml PO DAILY RF: 0 naproxen 500 mg tablet 500 mg PO Q12H PRN (Reason: Pain) RF: 0 Lidocaine Viscous 2 % solution 15 ml PO Q3H PRNRF: 0 hydroxyzine pamoate 25 mg capsule 25 mg PO BEDTIME PRN (Reason: Sleep) RF: 0 cyclobenzaprine 10 mg tablet 10 mg PO TID PRN (Reason: Muscle Pain) RF: 0 tramadol 50 mg tablet 50 mg PO Q8H PRN (Reason: pain) RF: 0 phenazopyridine 100 mg tablet 100 mg PO Q8H PRN (Reason: pain) RF: 0 fluticasone propionate 110 mcg/actuation HFA aerosol inhaler 2 puff inhalation BID 30 Days Qty: 12 RF: 11 oxycodone 20 mg tablet,oral only,ext.rel.12 hr 20 mg PO Q12H RF: 0 oxycodone 20 mg tablet 20 mg PO BID PRN (Reason: pain) RF: 0 diazepam 5 mg tablet 5 mg PO BID RF: 0 sucralfate [Carafate] 100 mg/mL suspension 10 ml PO TID 30 Days Qty: 900 RF: 2 lactulose 10 gram/15 mL solution 10 g PO DAILY PRN (Reason: constipation) Qty: 473 RF: 1 Magic Mouthwash Diphen/Lido/Antacid 1:1:1 240 mL suspension 10 ml PO TID Qty: 240 RF: 1 famotidine 40 mg tablet 40 mg PO DAILY Qty: 30 RF: 3 magic mouthwash 1:1:1 of maalox, benadryl 12.5mg/5ml and viscous lidociane 2% 560 mL 10 ml PO TID PRN (Reason: dysphagia) Qty: 1 RF: 0 Afluria Qd 2019-(3yr up)(PF) 60 mcg (15 mcg x 4)/0.5 mL syringe IM ONCE RF: 0 pregabalin 25 mg capsule 25 mg PO BID RF: 0 multivitamin Tablet 1 tab PO DAILY RF: 0 Combivent Respimat 20-100 mcg/actuation mist 1 puff inhalation QID 30 Days Qty: 4 RF: 11 levalbuterol tartrate 45 mcg/actuation HFA aerosol inhaler 2 puff PO Q6H PRN (Reason: Wheezing) 30 Days Qty: 15 RF: 11 Referrals: Mireya Robledo MD [Primary Care Provider] - 2 days Discharge Date/Time: 08/07/20 11:41
== END 2020-08-07 11:41 | disposition home or self-care (01) ==
PROVIDERS: Emergency Provider Emergency Medicine; PCP Internal Medicine
DX: S39.012A Strain of muscle, fascia and tendon of lower back, initial encounter (principal); X50.1XXA Overexertion from prolonged static or awkward postures, initial encounter; I10 Essential (primary) hypertension; E78.5 Hyperlipidemia, unspecified; Y93.H2 Activity, gardening and landscaping; Y92.017 Garden or yard in single-family (private) house as the place of occurrence of the external cause; Y99.8 Other external cause status; Z79.02 Long term (current) use of antithrombotics/antiplatelets; Z79.899 Other long term (current) drug therapy
CPT/HCPCS: 99283

== ENCOUNTER 2020-09-11 09:52 | Outpatient (REF) | payer MEDICARE, MEDICAID, SELFPAY ==
--- NOTE | ~2020-09-11 | FL_ITS ---
EXAMINATION: FL BARIUM SWALLOW CLINICAL INFORMATION: Dysphagia. COMPARISON: None. TECHNIQUE: Barium swallow examination is performed using fluoroscopic evaluation in addition to multiple fluoroscopic spot views. The patient is imaged both upright and prone and using both thick and thin sulfate along with effervescent granules. Fluoroscopy time: 1.7 minutes. DAP: 24.439 Gy-cm2. Images: 50. FINDINGS: The ventral plate at C5-C6 disc level for fusion has been removed. There is normal propagation of bolus from the oral cavity through the widely distended pharynx into the esophagus. There is moderate narrowing at the GE junction resulting in increased secondary peristalsis. This narrowing was seen with thin and thick barium and barium-coated turkey in different positions. The rest of the esophagus including the pharynx is widely patent with liquids and solids. On oral administration of barium tablet, there is obstruction of the tablet at the GE junction which did not resolve with a glass of water. FL/FL barium swallow IMPRESSION: Moderate narrowing at the GE junction resulting in partial obstruction of thick barium and barium-coated turkey. There was obstruction of the barium tablet. Needs further evaluation with endoscopy right The pharynx and rest of the esophagus is widely patent without any intraluminal filling defect or extrinsic compression.
== END 2020-09-11 09:53 | disposition home or self-care (01) ==
LOC: HO.XRAY 09:52
PROVIDERS: Visit Provider Internal Medicine Gastroenterology
DX: R13.10 Dysphagia, unspecified (principal)
CPT/HCPCS: 74220

== ENCOUNTER 2020-10-10 10:03 | Outpatient (REF) | payer MEDICARE, MEDICAID, SELFPAY ==
[2020-10-10 11:03] LABS: Blood Urea Nitrogen 9 mg/dL (9-16); Estimated Glomerular Filt Rate > 60
== END 2020-10-10 10:04 | disposition home or self-care (01) ==
LOC: HO.LAB 10:03
PROVIDERS: Visit Provider Internal Medicine Gastroenterology
DX: K22.2 Esophageal obstruction (principal); R13.10 Dysphagia, unspecified
CPT/HCPCS: 36415; 82565; 84520

== ENCOUNTER 2020-10-16 07:34 | Outpatient (REF) | payer MEDICARE, MEDICAID, SELFPAY ==
--- NOTE | ~2020-10-16 | CT_ITS ---
EXAMINATION: CT CHEST WITH CONTRAST CLINICAL INFORMATION: Esophageal obstruction COMPARISON: Previous chest CT May 2020, chest x-ray June 2020 and barium swallow August 2020 TECHNIQUE: Multidetector volumetric CT imaging of the chest was obtained after the administration of 65 mL of Omnipaque 350 intravenous contrast without immediate adverse reactions. Axial MIP volume rendering provided. Sagittal and coronal reformatted images were obtained. This CT examination was performed using dose optimization techniques as appropriate, variously including the following: *Automated exposure control *Adjustment of mA and/or kV according to patient size (this includes techniques or standardized protocols for targeted exams where dose is matched to indication/reason for exam; i.e. extremities or head) *Use of iterative reconstruction technique DLP: 145 mGy-cm FINDINGS: REGION MANAGER: LUNGS: There is evidence of emphysema. The pulmonary nodules are stable. Largest pulmonary nodule is a 4 mm peripheral or subpleural left lower lobe nodule axial image 132 series 7 MEDIASTINUM: There is mild wall thickening of the distal thoracic esophagus. This is similar to previous exams. There are small mediastinal lymph nodes that are stable. No enlarged lymph nodes are seen. The mediastinum is otherwise normal. PLEURA: There is no pleural effusion. No pleural mass or thickening. AXILLA: No lymphadenopathy. UPPER ABDOMEN: Unremarkable OSSEOUS STRUCTURES: There are degenerative changes of the spine. CT/CT chest w con IMPRESSION: Wall thickening of the distal thoracic esophagus. Emphysema. Stable small pulmonary nodules.
[2020-10-16] MEDS: iohexoL 350 MG/ML 100 ML INFUS..BTL 85 ML IV (08:07)
== END 2020-10-16 07:35 | disposition home or self-care (01) ==
LOC: HO.CT 07:34
PROVIDERS: Visit Provider Internal Medicine Gastroenterology
DX: K22.2 Esophageal obstruction (principal)
CPT/HCPCS: 71260; Q9967

== ENCOUNTER → 2020-10-31 15:08 | Outpatient (BNVA) | payer MEDICARE, MEDICAID, SELFPAY | PROVIDERS: Visit Provider Urology | DX: R39.15 Urgency of urination (principal); N32.89 Other specified disorders of bladder | CPT/HCPCS: Q3014 ==

== ENCOUNTER 2020-12-06 08:56 | Outpatient (REF) | payer MEDICARE, MEDICAID, SELFPAY ==
--- NOTE | 2020-12-06 09:55 | PFT_ITS ---
FLOWS: FEV1 66% of predicted at 2.37 L. FVC 76% of predicted at 3.51 L. FEV1 to FVC ratio of 0.68. No bronchodilator response. LUNG VOLUMES: Total lung capacity 88% of predicted at 5.80 L. Residual volume 124% of predicted at 2.50 L. Slow vital capacity 72% of predicted at 3.30 L. Expiratory reserve volume 39% of predicted at 0.53 L. Diffusion capacity is moderately decreased, diffusion capacity adjust to being mildly decreased after correction for alveolar ventilation. IMPRESSION: Moderate obstructive ventilatory defect with no bronchodilator response. Increased residual volume suggests air trapping. Decreased diffusion capacity suggests emphysema. Victoriano Devlin MD AP/MODL / [id number]
== END 2020-12-06 08:57 | disposition home or self-care (01) ==
LOC: HO.RESP 08:56
PROVIDERS: PCP Internal Medicine; Visit Provider Hospitalist
DX: Z01.818 Encounter for other preprocedural examination (principal); J44.9 Chronic obstructive pulmonary disease, unspecified; G47.33 Obstructive sleep apnea (adult) (pediatric); R91.8 Other nonspecific abnormal finding of lung field; K21.00 Gastro-esophageal reflux disease with esophagitis, without bleeding; Z99.89 Dependence on other enabling machines and devices
CPT/HCPCS: 94060; 94727; 94729; 99212

== ENCOUNTER 2021-01-15 11:24 | Outpatient (REF) | payer MEDICARE, MEDICAID, SELFPAY ==
--- NOTE | ~2021-01-15 | XR_ITS ---
EXAMINATION: XR CHEST CLINICAL INFORMATION: Chest pain, unspecified. COMPARISON: Chest radiograph done on 07/06/2020. CT of the chest done on 10/16/2020. TECHNIQUE: 2 views of the chest were obtained. FINDINGS: Previous CT detected small pulmonary nodules are not reproduced in the current study. No evidence of any dense airspace consolidation to suspect pneumonia. The cardiac mediastinal silhouette is within normal limit. No pleural effusion or pneumothorax. Multilevel mild degenerative spondylosis. Overall, no significant change since 07/06/2020. XR/XR chest 2V IMPRESSION: No radiographic evidence of acute cardiopulmonary disease. Previous CT detected small pulmonary nodules are not reproduced in the current study.
== END 2021-01-15 11:25 | disposition home or self-care (01) ==
LOC: HO.XRAY 11:24
PROVIDERS: PCP Internal Medicine; Visit Provider Hospitalist
DX: R07.9 Chest pain, unspecified (principal)
CPT/HCPCS: 71046

== ENCOUNTER 2021-01-18 10:08 | Emergency (ER) | payer MEDICARE, MEDICAID, SELFPAY ==
--- NOTE | ~2021-01-18 | XR_ITS ---
EXAMINATION: XR CHEST CLINICAL INFORMATION: Shortness of breath COMPARISON: Previous chest x-ray 01/15/2021 TECHNIQUE: Frontal view of the chest was obtained. FINDINGS: No significant abnormality is noted involving the heart, lungs, mediastinum, bony thorax or soft tissues. XR/XR chest 1V IMPRESSION: Unremarkable examination.
[2021-01-18 10:22] VITALS: BP 128/86; PULSE 67; RESP 18; TEMP 36.6; O2SAT 97; BMI 29.5
--- NOTE | 2021-01-18 11:20 | ECG_ITS ---
Test Reason : SOB Blood Pressure : / mmHG Vent. Rate : 056 BPM Atrial Rate : 056 BPM P-R Int : 176 ms QRS Dur : 086 ms QT Int : 442 ms P-R-T Axes : 040 019 022 degrees QTc Int : 426 ms Sinus bradycardia Nonspecific ST abnormality Inferior leads Abnormal ECG ST more depressed Inferior leads Referred By: Generic ED Physician Electronically Signed By:KRISTEN JEROME MD
--- NOTE | 2021-01-18 11:22 | PC.NURSE ---
patient came into triage upset because another patient went in before him- they went to minor care area. pt states he just wants to know what is going on and is not going to sit here all day. pt was told he needs the main ed side and will be having a cxr, labs and seen by a provider. pt stated yeah we will see about that and left the triage area.
--- NOTE | 2021-01-18 12:10 | ED_ITS ---
HPI - General Adult General Chief complaint: General Medical Stated complaint: multiple complaints Time Seen by Provider: 01/18/21 15:14 Source: patient Mode of arrival: ambulatory Limitations: no limitations History of Present Illness HPI narrative: 54-year-old male history of GERD, esophageal stricture, COPD, anxiety, palpitation, non alcoholic steatohepatitis, and hypertension presents to ED for evaluation of an episode that occurred last night. Patient sent last night while sleeping he woke up suddenly with shortness of breath and profuse coughing. Patient states before going to sleep he had a large meal. patient states he went to sleep 30 minutes after the heavy meal and than symptoms occurred. patient states symptom lasted around 10 minutes and he has been asymptomatic ever since. Patient came to the ED to be evaluated. Patient was concerned due to history of esophageal stricutre. Patient has follow-up with thoracic for barium swallow in January and follow-up with thoracic surgeon Dr. Claudio in February. Presently patient is asymptomatic. Patient denies any swelling of legs, coughing up blood, chest pain, heart beating fast, fever pleuretic chest pain, calf pain, recent long travel, recent surgery, estrogen hormonal use, chills, or any other concerning symptoms . Patient had COVID booster 3 days ago has some chills and body aches that resolved. Related Data Home Medications Medication Instructions Recorded Confirmed cyclobenzaprine 10 mg tablet 10 mg PO TID PRN 12/23/19 08/18/20 epinephrine 0.3 mg/0.3 mL IM DIRECTED PRN 12/23/19 08/18/20 injection, auto-injector ibuprofen 600 mg tablet 600 mg PO QID PRN 12/23/19 08/18/20 lactulose 10 gram/15 mL oral 15 ml PO DAILY 12/23/19 08/18/20 solution levocetirizine 5 mg tablet 5 mg PO DIRECTED 12/23/19 08/18/20 lisinopril 5 mg tablet 5 mg PO DAILY 12/23/19 08/18/20 naproxen 500 mg tablet 500 mg PO Q12H PRN 12/23/19 08/18/20 omega-3 acid ethyl esters 1 gram 2 cap PO BID 12/23/19 08/18/20 capsule phenazopyridine 100 mg tablet 100 mg PO Q8H PRN 12/23/19 08/18/20 flu vac [id number] 36mos up(PF) ml IM ONCE 01/10/20 08/18/20 oxycodone 20 mg tablet 20 mg PO BID PRN 04/13/20 08/18/20 oxycodone 20 mg tablet,crush 20 mg PO Q12H 04/13/20 08/18/20 resistant,extended release 12 hr multivitamin 1 tab PO DAILY 04/28/20 08/18/20 pregabalin 25 mg capsule 25 mg PO BID 04/28/20 08/18/20 diazepam 5 mg tablet 5 mg PO BID 06/06/20 08/18/20 cholecalciferol (vitamin D3) 50 50 mcg PO DAILY 10/31/20 mcg (2,000 unit) tablet (Vitamin D3) triamcinolone acetonide 55 mcg 1 spray INTRANASAL DAILY 10/31/20 nasal spray aerosol Previous Rx's Medication Instructions Recorded atorvastatin 20 mg tablet 20 mg PO DAILY 30 Days #30 tab 01/25/20 fluticasone propionate 110 2 puff INHALATION BID 30 Days #12 g 02/11/20 mcg/actuation HFA aerosol inhaler famotidine 40 mg tablet 40 mg PO DAILY #30 tab 03/14/20 acetaminophen 500 mg tablet 500 mg PO Q6H PRN #20 tab 08/07/20 (Tylenol Extra Strength) cyclobenzaprine 5 mg tablet 5 mg PO Q8H PRN 5 Days #14 tab 08/07/20 ipratropium 20 mcg-albuterol 100 1 puff INHALATION QID 30 Days #4 g 08/07/20 mcg/actuation mist for inhalation (Combivent Respimat) naproxen 500 mg tablet 500 mg PO BID PRN 10 Days #20 tab 08/07/20 Magic Mouthwash 10 ml PO TID #240 ml 08/29/20 Diphen/Lido/Antacid 1:1:1 240 mL suspension Magic Mouthwash 10 ml PO TID #240 ml 09/08/20 Diphen/Lido/Antacid 1:1:1 240 mL suspension magic mouthwash 1:1:1 of maalox, 10 ml PO TID PRN #1 ea 09/08/20 benadryl 12.5mg/5ml and viscous lidociane 2% lactulose 10 gram/15 mL oral 15 ml PO DAILY PRN #473 ml 09/19/20 solution levalbuterol tartrate 45 2 puff PO Q6H PRN 30 Days #15 g 10/07/20 mcg/actuation aerosol inhaler mirabegron 25 mg tablet,extended 25 mg PO DAILY 90 Days #90 tab 10/31/20 release 24 hr (Myrbetriq) esomeprazole magnesium 40 mg 40 mg PO DAILY #60 cap 12/01/20 capsule,delayed release (Nexium) nimodipine 30 mg capsule 30 mg PO DAILY #14 cap 12/27/20 Allergies Allergy/AdvReac Type Severity Reaction Status Date / Time metronidazole [From FLAGYL] Allergy Severe RASH Verified 12/16/20 15:11 tree and shrub pollen [TREE] Allergy Severe Rash Verified 12/16/20 15:11 dexamethasone AdvReac Severe palpitatiio Verified 12/16/20 15:11 ns fluticasone furoate AdvReac Severe palpitations, Verified 12/16/20 15:11 [Breo Ellipta] high BP umeclidinium AdvReac Severe palpitation Verified 12/16/20 15:11 [Incruse Ellipta] s Bee sting Allergy Severe Hives/Difficulty Uncoded 12/06/20 10:23 breathing Clindamycin HCl Allergy Severe Hives Uncoded 12/06/20 10:23 ENVIRONMENTAL Allergy Severe Rash Uncoded 12/06/20 10:23 Review of Systems Review of Systems: Yes all other systems are reviewed and are negative Constitutional: Constitutional: Reports as per HPI and Reports no additional constitutional complaints Eyes: Eyes: Reports as per HPI and Reports no additional eye complaints ENT: Reports system reviewed and no additional complaints, except as documented and Reports as per HPI Cardiovascular: Cardiovascular: Reports as per HPI, Reports no additional cardiovascular complaints and Reports dyspnea (resolved) Respiratory: Respiratory: Reports as per HPI, Reports no additional respiratory complaints, Reports cough (resolved) and Reports dyspnea (resolved) Gastrointestinal: Gastrointestinal: Reports as per HPI and Reports no additional gastrointestinal complaints Genitourinary: Genitourinary: Reports no additional male genitourinary complaints and Reports as per HPI Musculoskeletal: Musculoskeletal: Reports no additional musculoskeletal co mplaints and Reports as per HPI Neurologic: Reports system reviewed and no additional complaints, except as documented and Reports as per HPI Psychiatric: Psychiatric: Reports no additional psychiatric complaints and Reports as per HPI Endocrine: Endocrine: Reports no additional endocrine complaints and Reports as per HPI [facility] Past Medical History Medical History Anxiety Asthma Asthma-COPD overlap syndrome Back pain Chronic pain COPD (chronic obstructive pulmonary disease) Dysphagia GERD (gastroesophageal reflux disease) High cholesterol History of colitis History of esophageal spasm History of IBS Hx of allergic rhinitis Hx of chest pain Hx of goiter Hx of multiple pulmonary nodules Hx of renal calculi Hypertension Hypoglycemia KATHLEEN on CPAP Osteoarthritis of both hips Panic attacks PTSD (post-traumatic stress disorder) Pulmonary nodules Shortness of breath Surgical History H/O neck surgery History of nasal surgery Hx of cervical discectomy Hx of colonoscopy Hx of endoscopy Hx of esophagogastroduodenoscopy Hx of left inguinal hernia repair Hx of tonsillectomy Hx of transurethral resection of prostate Family History Family History Father No problems noted. Mother No problems noted. Social History Social History (Updated 12/06/20 @ 10:34 by FRANSISCO Chawla) Household Members: Family Alcohol intake: never Patient Tobacco Use Status: Former Tobacco user Tobacco use type: Cigarette Years Smoked: Quit 8 years ago Advance Directives: No Current occupational status: unemployed Physical Exam Vital Signs: Vital Signs: Last Vital Signs Temp 98.5 F 01/18/21 12:29 Pulse 60 01/18/21 12:29 Resp 15 01/18/21 12:29 BP 139/77 01/18/21 12:29 Pulse Ox 95 01/18/21 12:29 Body Mass Index 29.5 Const: General: cooperative, healthy appearing, comfortable, no acute distress, well developed, alert, awake and Physically active Orientation/consciousness: patient oriented x3 HENMT: Head: Yes normal to inspection, Yes No palpable skull fracture present, Yes normocephalic and Yes atraumatic Eyes: General: appearance normal, both eyes and all related structures Neck: Neck: Yes normal visual inspection, Yes full ROM, Yes no lymphadenopa thy, Yes no meningeal signs, Yes trachea midline, Yes supple and No tender Chest: Chest palpation & inspection: normal inspection of the chest and normal palpation of entire chest wall Resp: Effort & Inspection: normal respiratory effort and able to speak in complete sentences Auscultation: clear to auscultation bilaterally Cardio: Jugular venous distension: no JVD Heart sounds: S1 normal heart sound present and S2 normal heart sound present GI: Inspection: Yes normal to inspection and No abdominal wall ecchymosis Palpation (GI): not firm, nontender, no guarding and not rigid : General: No CVA tenderness and Yes no CVA tenderness Back/Spine/Pelvis: Back: no CVA tenderness, No CVA tenderness and No back tenderness Skin: General skin exam: no rashes or lesions noted and elasticity normal Neuro: General: patient oriented x3, gait normal, no meningeal signs and CN's II-XI intact bilaterally Cranial nerves: Yes CN's II-XII intact bilaterally Extrem: Other: lower extremities negative for swelling, pitting edema, or calf tenderness. Psych: Appearance: grossly normal, well kempt and not disheveled Course Course Course Narrative: Patient have a cardiac evaluation. Presently physical exam does not indicate severe esophageal stricture that could lead to respiratory distress food bolus/obstruction. Negative for any drooling or difficulty eating food or swallowing liquids. Negative for change in voice. Patient presently as ymptomatic will request oxycodone for chronic pain syndromes is does. Patient takes oxycodone 20 mg Reevaluation(s) Reevaluation #1: EKG negative STEMI. Liver enzymes troponin BNP negative. Chest x-ray normal. COVID swab negative. Not suspecting PE. Patient denies hemoptysis. Patient denies any pleuritic chest pain, recent long travel, recent surgery, estrogen hormonal use, calf pain, or any history of any blood clots. Once again patient states shortness of breath and coughing occurred after sleeping half an hour after having a large meal with history of GERD and esophageal stricture. Not suspecting esophageal stricture/obstruction or fool bolus. patient states he was concerned because he has appointment for barium swallow was wondering he should have it done now. will contact Dr. Sharma. Time: 16:50 Reevaluation #2: Spoke with Dr. Sharma who states patient could be discharged. He was informed the patient's history physical exam and diagnostics. He states patient could be discharged with with outpatient barium enema. Dr. Sharma rec ommended I contact Dr. Beal his compliance program manager. Dr. Beal states he agreed with plan and patient could be discharged and follow up with outpatient barium swallow. Presently not suspecting esophageal stricture/obstruction or food bolus. Patient is alert oriented x3, normal speech, negative for any drooling/change in voice/vomiting/nausea/or chest pain. Patient passed p.o. challenge. Time: 15:20 Medical Decision Making MDM Narrative Medical decision making narrative: GERD. Esophageal issue, but not suspecting obstructive esophagus or food bolus. Lab Data Result diagrams: 01/18/21 12:52 01/18/21 12:52 Labs: Lab Results 01/18/21 01/18/21 01/18/21 Range/Units 12:50 12:52 12:52 WBC 5.1 (4.8-10.8) X10*3/uL RBC 4.90 (4.60-5.80) X10*6/uL Hgb 14.0 (14.0-18.0) g/dl Hct 44.0 (42-52) % MCV 89.8 (80-98) fL MCH 28.6 (27.0-33.0) pg MCHC 31.8 (31.0-36.0) g/dl RDW 12.9 (11.0-16.0) % Plt Count 232 (160-400) X10*3/uL MPV 10.2 (9.4-12.4) fL Immature Gran % (Auto) 0.4 (0.0-0.4) % Neut % (Auto) 46.2 (45-73) % Lymph % (Auto) 36.2 (20-40) % [place] % (Auto) 10.9 (2-11) % Eos % (Auto) 5.7 H (0-4) % Baso % (Auto) 0.6 (0-2) % Lymph # (Auto) 1.8 (1.2-4.9) X10*3/uL [place] # (Auto) 0.6 (0.1-1.2) X10*3/uL Eos # (Auto) 0.3 (0.0-0.4) X10*3/uL Baso # (Auto) 0.0 (0.0-0.2) X10*3/uL Abs Immat Gran (auto) 0.02 (0.00-0.03) X10*3/uL Absolute Neuts (auto) 2.3 (2.0-8.3) X10*3/uL Absolute Nucleated RBC 0.000 (0.0-0.012) X10*3/uL Nucleated RBC % (auto) 0.0 (0.0-0.2) /100WBC PT (9.9-13.0) SEC INR (0.9-1.1) APTT (24.1-38.0) SEC Sodium 142 (135-145) mmol/L Potassium 3.9 (3.3-5.1) mmol/L Chloride 107 (96-108) mmol/L Carbon Dioxide 27 (22-29) mmol/L Anion Gap 12 (12-20) BUN 8 L (9-16) mg/dL Creatinine 0.91 (0.5-1.4) mg/dL Estim Creat Clear Calc 101.2 Estimated GFR > 60 Random Glucose 95 (60-115) mg/dL Calcium 9.1 (8.4-10.2) mg/dL Total Bilirubin (0.0-1.0) mg/dL Direct Bilirubin (0.0-0.5) mg/dL AST (5-37) U/L ALT (0-40) U/L Alkaline Phosphatase (39-117) U/L Troponin I High Sens (<3.5-35.0) ng/L B-Natriuretic Peptide (<100) pg/mL Total Protein (6.5-8.0) g/dL Albumin (3.5-5.0) g/dL Lipase (8-78) U/L Urine Color YELLOW Urine Appearance CLEAR Urine pH 6.5 (5.0-8.0) Ur Specific [place] 1.010 (1.005-1.025) Urine Protein NEG (NEG-TRACE) MG/DL Urine Glucose (UA) NEG (NEG) MG/DL Urine Ketones NEG (NEG) MG/DL Urine Blood 1+ H (NEG) Urine Nitrite NEG (NEG) Ur Leukocyte Esterase NEG (NEG) Urine RBC 5-9 H (0) /HPF Urine WBC 0-2 (0-4) /HPF Ur Squamous Epith Cells TRACE /LPF Urine Bacteria NONE /LPF COVID-19 ([facility]) (Negative) COVID-19 Clin Com 01/18/21 01/18/21 01/18/21 Range/Units 12:52 12:52 12:52 WBC (4.8-10.8) X10*3/uL RBC (4.60-5.80) X10*6/uL Hgb (14.0-18.0) g/dl Hct (42-52) % MCV (80-98) fL MCH (27.0-33.0) pg MCHC (31.0-36.0) g/dl RDW (11.0-16.0) % Plt Count (160-400) X10*3/uL MPV (9.4-12.4) fL Immature Gran % (Auto) (0.0-0.4) % Neut % (Auto) (45-73) % Lymph % (Auto) (20-40) % [place] % (Auto) (2-11) % Eos % (Auto) (0-4) % Baso % (Auto) (0-2) % Lymph # (Auto) (1.2-4.9) X10*3/uL [place] # (Auto) (0.1-1.2) X10*3/uL Eos # (Auto) (0.0-0.4) X10*3/uL Baso # (Auto) (0.0-0.2) X10*3/uL Abs Immat Gran (auto) (0.00-0.03) X10*3/uL Absolute Neuts (auto) (2.0-8.3) X10*3/uL Absolute Nucleated RBC (0.0-0.012) X10*3/uL Nucleated RBC % (auto) (0.0-0.2) /100WBC PT 13.6 H (9.9-13.0) SEC INR 1.2 H (0.9-1.1) APTT 35.5 (24.1-38.0) SEC Sodium (135-145) mmol/L Potassium (3.3-5.1) mmol/L Chloride (96-108) mmol/L Carbon Dioxide (22-29) mmol/L Anion Gap (12-20) BUN (9-16) mg/dL Creatinine (0.5-1.4) mg/dL Estim Creat Clear Calc Estimated GFR Random Glucose (60-115) mg/dL Calcium (8.4-10.2) mg/dL Total Bilirubin (0.0-1.0) mg/dL Direct Bilirubin (0.0-0.5) mg/dL AST (5-37) U/L ALT (0-40) U/L Alkaline Phosphatase (39-117) U/L Troponin I High Sens < 3.5 (<3.5-35.0) ng/L B-Natriuretic Peptide < 10 (<100) pg/mL Total Protein (6.5-8.0) g/dL Albumin (3.5-5.0) g/dL Lipase (8-78) U/L Urine Color Urine Appearance Urine pH (5.0-8.0) Ur Specific [place] (1.005-1.025) Urine Protein (NEG-TRACE) MG/DL Urine Glucose (UA) (NEG) MG/DL Urine Ketones (NEG) MG/DL Urine Blood (NEG) Urine Nitrite (NEG) Ur Leukocyte Esterase (NEG) Urine RBC (0) /HPF Urine WBC (0-4) /HPF Ur Squamous Epith Cells /LPF Urine Bacteria /LPF COVID-19 ([facility]IA) Negative (Negative) COVID-19 Clin Com See Note 01/18/21 Range/Units 12:52 WBC (4.8-10.8) X10*3/uL RBC (4.60-5.80) X10*6/uL Hgb (14.0-18.0) g/dl Hct (42-52) % MCV (80-98) fL MCH (27.0-33.0) pg MCHC (31.0-36.0) g/dl RDW (11.0-16.0) % Plt Count (160-400) X10*3/uL MPV (9.4-12.4) fL Immature Gran % (Auto) (0.0-0.4) % Neut % (Auto) (45-73) % Lymph % (Auto) (20-40) % [place] % (Auto) (2-11) % Eos % (Auto) (0-4) % Baso % (Auto) (0-2) % Lymph # (Auto) (1.2-4.9) X10*3/uL [place] # (Auto) (0.1-1.2) X10*3/uL Eos # (Auto) (0.0-0.4) X10*3/uL Baso # (Auto) (0.0-0.2) X10*3/uL Abs Immat Gran (auto) (0.00-0.03) X10*3/uL Absolute Neuts (auto) (2.0-8.3) X10*3/uL Absolute Nucleated RBC (0.0-0.012) X10*3/uL Nucleated RBC % (auto) (0.0-0.2) /100WBC PT (9.9-13.0) SEC INR (0.9-1.1) APTT (24.1-38.0) SEC Sodium (135-145) mmol/L Potassium (3.3-5.1) mmol/L Chloride (96-108) mmol/L Carbon Dioxide (22-29) mmol/L Anion Gap (12-20) BUN (9-16) mg/dL Creatinine (0.5-1.4) mg/dL Estim Creat Clear Calc Estimated GFR Random Glucose (60-115) mg/dL Calcium (8.4-10.2) mg/dL Total Bilirubin 0.5 (0.0-1.0) mg/dL Direct Bilirubin 0.2 (0.0-0.5) mg/dL AST 28 (5-37) U/L ALT 51 H (0-40) U/L Alkaline Phosphatase 91 (39-117) U/L Troponin I High Sens (<3.5-35.0) ng/L B-Natriuretic Peptide (<100) pg/mL Total Protein 7.0 (6.5-8.0) g/dL Albumin 4.4 (3.5-5.0) g/dL Lipase 15 (8-78) U/L Urine Color Urine Appearance Urine pH (5.0-8.0) Ur Specific [place] (1.005-1.025) Urine Protein (NEG-TRACE) MG/DL Urine Glucose (UA) (NEG) MG/DL Urine Ketones (NEG) MG/DL Urine Blood (NEG) Urine Nitrite (NEG) Ur Leukocyte Esterase (NEG) Urine RBC (0) /HPF Urine WBC (0-4) /HPF Ur Squamous Epith Cells /LPF Urine Bacteria /LPF COVID-19 ([facility]IA) (Negative) COVID-19 Clin Com ECG Data Interpretation: EKG sinus bradycardia. Ventricular rate 56. Pr interval 176. QRS 86. QTC 426. Negative STEMI Discharge Plan Discharge Clinical Impression: GERD (gastroesophageal reflux disease), Indigestion Patient Disposition: Elopement Instructions: Gastroesophageal Reflux Disease (ED), Indigestion (ED) Additional Instructions: EKG and blood work came back negative for heart attack or congestive heart failure. Your chest x-ray negative for pneumonia. COVID swab is negative. Liver enzymes normal. I discussed your case with Dr. Beal and Dr. Sharma of Gastroenterology and they recommend he follow up with outpatient. Presently not suspecting any emergent etiology. Return to the ED immediately for any chest pain, shortness of breath, coughing up blood, swelling of lower extremities, calf pain, pleuritic chest pain, abdominal pain, diarrhea, vomiting, vomiting blood, inability to tolerate solid food/liquid, or any other concerning symptoms. Prescriptions: No Action atorvastatin 20 mg tablet 20 mg PO DAILY 30 Days Qty: 30 RF: 1 Magic Mouthwash Diphen/Lido/Antacid 1:1:1 240 mL suspension 10 ml PO TID Qty: 240 RF: 1 Magic Mouthwash Diphen/Lido/Antacid 1:1:1 240 mL suspension 10 ml PO TID Qty: 240 RF: 0 magic mouthwash 1:1:1 of maalox, benadryl 12.5mg/5ml and viscous lidociane 2% 560 mL 10 ml PO TID PRN (Reason: dysphagia) Qty: 1 RF: 0 lactulose 10 gram/15 mL solution 15 ml PO DAILY PRN (Reason: for constipation) Qty: 473 RF: 4 esomeprazole magnesium [Nexium] 40 mg capsule,delayed release(DR/EC) 40 mg PO DAILY Qty: 60 RF: 1 nimodipine 30 mg capsule 30 mg PO DAILY Qty: 14 RF: 0 acetaminophen [Tylenol Extra Strength] 500 mg tablet 500 mg PO Q6H PRN (Reason: pain or fever) Qty: 20 RF: 0 naproxen 500 mg tablet 500 mg PO BID PRN (Reason: pain) 10 Days Qty: 20 RF: 0 cyclobenzaprine 5 mg tablet 5 mg PO Q8H PRN (Reason: pain (scale score 7-10)) 5 Days Qty: 14 RF: 0 omega-3 acid ethyl esters 1 gram capsule 2 cap PO BID RF: 0 levocetirizine 5 mg tablet 5 mg PO DIRECTED RF: 0 lisinopril 5 mg tablet 5 mg PO DAILY RF: 0 ibuprofen 600 mg tablet 600 mg PO QID PRN (Reason: Pain) RF: 0 epinephrine 0.3 mg/0.3 mL auto-injector IM DIRECTED PRN (Reason: Anaphylaxis) RF: 0 lactulose 10 gram/15 mL solution 15 ml PO DAILY RF: 0 naproxen 500 mg tablet 500 mg PO Q12H PRN (Reason: Pain) RF: 0 cyclobenzaprine 10 mg tablet 10 mg PO TID PRN (Reason: Muscle Pain) RF: 0 phenazopyridine 100 mg tablet 100 mg PO Q8H PRN (Reason: pain) RF: 0 levalbuterol tartrate 45 mcg/actuation HFA aerosol inhaler 2 puff PO Q6H PRN (Reason: Wheezing) 30 Days Qty: 15 RF: 1 fluticasone propionate 110 mcg/actuation HFA aerosol inhaler 2 puff inhalation BID 30 Days Qty: 12 RF: 11 oxycodone 20 mg tablet,oral only,ext.rel.12 hr 20 mg PO Q12H RF: 0 oxycodone 20 mg tablet 20 mg PO BID PRN (Reason: pain) RF: 0 diazepam 5 mg tablet 5 mg PO BID RF: 0 famotidine 40 mg tablet 40 mg PO DAILY Qty: 30 RF: 3 Afluria Qd 2020-21(3yr up)(PF) 60 mcg (15 mcg x 4)/0.5 mL syringe IM ONCE RF: 0 pregabalin 25 mg capsule 25 mg PO BID RF: 0 multivitamin Tablet 1 tab PO DAILY RF: 0 Combivent Respimat 20-100 mcg/actuation mist 1 puff inhalation QID 30 Days Qty: 4 RF: 11 triamcinolone acetonide 55 mcg aerosol,spray 1 spray intranasal DAILY RF: 0 cholecalciferol (vitamin D3) [Vitamin D3] 50 mcg (2,000 unit) tablet 50 mcg PO DAILY RF: 0 Myrbetriq 25 mg tablet extended release 24 hr 25 mg PO DAILY 90 Days Qty: 90 RF: 1 Stand Alone Forms: Work/School Release Interventions: ED Discharge Assessment Last Done: 01/18/21 15:27 Discharge Date/Time: 01/18/21 15:27 Print Language: Syriac
[2021-01-18 12:29] VITALS: BP 139/77; PULSE 60; RESP 15; TEMP 36.9; O2SAT 95
[2021-01-18 13:00] LABS: MANUAL DIFF FLAG NO
[2021-01-18 13:02] LABS: Basophils Percent Auto 0.6 % (0-2); Eosinophils Absolute Auto 0.3 X10*3/uL (0.0-0.4); Eosinophils Percent Auto 5.7 % (0-4); Imm Gran Abs Auto 0.02 X10*3/uL (0.00-0.03); Imm Gran Pct Auto 0.4 % (0.0-0.4); Lymphocytes Absolute Auto 1.8 X10*3/uL (1.2-4.9); Lymphocytes Percent Auto 36.2 % (20-40); Mean Corpuscular HGB Conc 31.8 g/dl (31.0-36.0); Mean Corpuscular Hemoglobin 28.6 pg (27.0-33.0); Mean Corpuscular Volume 89.8 fL (80-98); Mean Platelet Volume 10.2 fL (9.4-12.4); Monocytes Absolute Auto 0.6 X10*3/uL (0.1-1.2); Monocytes Percent Auto 10.9 % (2-11); Neutrophils Absolute Auto 2.3 X10*3/uL (2.0-8.3); Neutrophils Percent Auto 46.2 % (45-73); Platelet Count 232 X10*3/uL (160-400); Red Cell Distribution Width 12.9 % (11.0-16.0); White Blood Count 5.1 X10*3/uL (4.8-10.8)
[2021-01-18 13:08] LABS: INTERNATIONAL NORM RATIO 1.2 (0.9-1.1); Prothrombin Time 13.6 SEC (9.9-13.0)
[2021-01-18 13:09] LABS: Appearance Urine CLEAR; Color Urine YELLOW; Glucose Urine UA NEG (NEG); Leukocyte Esterase Urine NEG (NEG); Nitrite Urine NEG (NEG); PH 6.5 (5.0-8.0); UACC Culture Trigger NO; Urine Blood 1+ (NEG); Urine Ketones NEG (NEG); Urine Protein NEG (NEG-TRACE)
[2021-01-18 13:10] LABS: Partial Thromboplastin Time 35.5 SEC (24.1-38.0)
[2021-01-18] MEDS: oxyCODONE HCl Immed Release 5 MG TABLET 20 MG PO (13:11)
[2021-01-18 13:16] LABS: Anion Gap 12 (12-20); Blood Urea Nitrogen 8 mg/dL (9-16); Calcium 9.1 mg/dL (8.4-10.2); Carbon Dioxide 27 mmol/L (22-29); Chloride 107 mmol/L (96-108); Creatinine Clr Calc Pharmacy 101.2; Estimated Glomerular Filt Rate > 60; Glucose Random 95 mg/dL (60-115); Potassium 3.9 mmol/L (3.3-5.1); Sodium 142 mmol/L (135-145)
[2021-01-18 13:17] LABS: Alanine Aminotransferase 51 U/L (0-40); Albumin Level 4.4 g/dL (3.5-5.0); Alkaline Phosphatase 91 U/L (39-117); Aspartate Amino Transferase 28 U/L (5-37); Bilirubin Direct 0.2 mg/dL (0.0-0.5); Bilirubin Total 0.5 mg/dL (0.0-1.0); Lipase 15 U/L (8-78)
[2021-01-18 13:19] LABS: COVID-19 Test Negative (Negative)
[2021-01-18 13:19] LABS: Squamous Epithelial Cell Urine TRACE /LPF; WBC Urine 0-2 /HPF (0-4)
[2021-01-18 13:21] LABS: B Type Natriuretic Peptide < 10 pg/mL (<100); Troponin-I High Sensitivity < 3.5 ng/L (<3.5-35.0)
--- NOTE | 2021-01-18 14:37 | PC.NURSE ---
The pt presented to the ED stating he is concerned about the way he woke last night - states he woke, startled, in the middle of the night, gasping for air. He aelaborates that he used to have slepe apnea but i had my tonsils removed and it went away so he no longer requires CPAP. He states I just want to konw if I still have sleep apnea or what that was. No CP. No SOB. Speech clear and appropriate. no cyanosis, he is speaking in full sentences. No nausea or vomiting. Speech clear and appropriate. Gait steady.
== END 2021-01-18 15:27 | disposition left against medical advice (07) ==
PROVIDERS: Physician Assistant; Emergency Provider Emergency Medicine Emergency Medical Services; PCP Internal Medicine
DX: K21.9 Gastro-esophageal reflux disease without esophagitis (principal); K30 Functional dyspepsia; R06.02 Shortness of breath; J45.909 Unspecified asthma, uncomplicated; Z20.822 Contact with and (suspected) exposure to COVID-19
CPT/HCPCS: 36415; 71045; 80048; 80076; 81001; 81003; 83690; 83880; 84484; 85025; 85610; 85730; 87635; 93005; 99283; 99284

== ENCOUNTER 2021-02-06 09:55 | Outpatient (REF) | payer MEDICARE, MEDICAID, SELFPAY ==
--- NOTE | ~2021-02-06 | XR_ITS ---
EXAMINATION: XR ABDOMEN KUB CLINICAL INDICATION: Abdominal pain COMPARISON: None TECHNIQUE: AP view of the abdomen. FINDINGS: The bowel gas pattern is normal with no evidence of ileus or obstruction. No unusual soft tissue calcifications are noted. The bones are unremarkable. XR/XR KUB IMPRESSION: Unremarkable examination.
[2021-02-06 12:23] LABS: Appearance Urine CLEAR; Color Urine YELLOW; Glucose Urine UA NEG (NEG); Leukocyte Esterase Urine NEG (NEG); Nitrite Urine NEG (NEG); Urine Blood NEG (NEG); Urine Ketones NEG (NEG); Urine Protein NEG (NEG-TRACE)
== END 2021-02-06 09:56 | disposition home or self-care (01) ==
LOC: HO.XRAY 09:55
PROVIDERS: PCP Internal Medicine; Referring Provider Internal Medicine; Visit Provider Internal Medicine Gastroenterology
DX: R10.9 Unspecified abdominal pain (principal); R30.0 Dysuria
CPT/HCPCS: 74018; 81003; 99212

== ENCOUNTER → 2021-04-05 08:26 | Outpatient (BNVA) | payer MEDICARE, MEDICAID, SELFPAY | PROVIDERS: PCP Internal Medicine; Visit Provider Urology | DX: N28.1 Cyst of kidney, acquired (principal); R39.15 Urgency of urination | CPT/HCPCS: Q3014 ==

== ENCOUNTER → 2021-04-06 09:33 | Outpatient (BNVA) | payer MEDICARE, MEDICAID, SELFPAY | PROVIDERS: PCP Internal Medicine; Visit Provider Hospitalist | DX: J44.9 Chronic obstructive pulmonary disease, unspecified (principal); R91.8 Other nonspecific abnormal finding of lung field; G47.33 Obstructive sleep apnea (adult) (pediatric); K21.9 Gastro-esophageal reflux disease without esophagitis; Z99.89 Dependence on other enabling machines and devices | CPT/HCPCS: 99212 ==

== ENCOUNTER → 2021-07-06 09:49 | Outpatient (BNVA) | payer MEDICARE, MEDICAID, SELFPAY | PROVIDERS: PCP Internal Medicine; Visit Provider Hospitalist | DX: J44.9 Chronic obstructive pulmonary disease, unspecified (principal); G47.33 Obstructive sleep apnea (adult) (pediatric); K21.9 Gastro-esophageal reflux disease without esophagitis; Z99.89 Dependence on other enabling machines and devices; R91.8 Other nonspecific abnormal finding of lung field | CPT/HCPCS: 99212 ==

== ENCOUNTER → 2021-08-06 12:12 | Outpatient (BNVA) | payer MEDICARE, MEDICAID, SELFPAY | PROVIDERS: PCP Internal Medicine; Referring Provider Internal Medicine; Visit Provider Internal Medicine Gastroenterology | DX: R13.10 Dysphagia, unspecified (principal); K21.9 Gastro-esophageal reflux disease without esophagitis; K75.81 Nonalcoholic steatohepatitis (NASH) | CPT/HCPCS: 99212 ==

== ENCOUNTER 2021-10-08 09:48 | Outpatient (REF) | payer MEDICARE, MEDICAID, SELFPAY ==
--- NOTE | ~2021-10-08 | US_ITS ---
EXAMINATION: US RETROPERITONEAL LIMITED (RENAL ONLY) CLINICAL INFORMATION: Cyst of kidney, acquired. COMPARISON: Abdominal ultrasound 04/24/2020, CT abdomen pelvis 10/25/2018 TECHNIQUE: Real-time imaging of the kidneys. FINDINGS: RIGHT KIDNEY: 10.7 x 6.1 x 5.4 cm (SAG x AP x TRV). The kidney is normal in size, contour, and echogenicity. Renal cortical thickness is normal. No renal calculi or hydronephrosis. 2.7 cm likely benign lower pole renal cyst with a thin avascular septation, no routine follow up imaging recommended, previously 2.8 cm. LEFT KIDNEY: 11 x 4.8 x 4.5 cm (SAG x AP x TRV). The kidney is normal in size, contour, and echogenicity. Renal cortical thickness is normal. No calculi or focal parenchymal lesions. No hydronephrosis. US/US renal BI IMPRESSION: A 2.7 cm likely benign right lower pole renal cyst with a thin avascular septation not significantly changed from prior, no follow-up imaging recommended.
== END 2021-10-08 09:49 | disposition home or self-care (01) ==
LOC: HO.US 09:48
PROVIDERS: Visit Provider Urology
DX: N28.1 Cyst of kidney, acquired (principal)
CPT/HCPCS: 76775

== ENCOUNTER → 2021-12-18 12:40 | Outpatient (BNVA) | payer MEDICARE, MEDICAID, SELFPAY | PROVIDERS: PCP Internal Medicine; Visit Provider Urology | DX: N32.81 Overactive bladder (principal); R39.15 Urgency of urination; R35.1 Nocturia; N32.0 Bladder-neck obstruction | CPT/HCPCS: Q3014 ==

== ENCOUNTER → 2022-01-04 10:06 | Outpatient (BNVA) | payer MEDICARE, MEDICAID, SELFPAY | PROVIDERS: PCP Internal Medicine; Visit Provider Internal Medicine Gastroenterology | DX: R13.10 Dysphagia, unspecified (principal) | CPT/HCPCS: 99212 ==

== ENCOUNTER → 2022-01-08 11:16 | Outpatient (BNVA) | payer MEDICARE, MEDICAID, SELFPAY | PROVIDERS: PCP Internal Medicine; Visit Provider Hospitalist | DX: J44.9 Chronic obstructive pulmonary disease, unspecified (principal); R91.8 Other nonspecific abnormal finding of lung field; G47.33 Obstructive sleep apnea (adult) (pediatric); K21.9 Gastro-esophageal reflux disease without esophagitis; Z99.89 Dependence on other enabling machines and devices | CPT/HCPCS: 99212 ==

== ENCOUNTER 2022-04-05 10:27 | Outpatient (REF) | payer MEDICARE, MEDICAID, SELFPAY ==
--- NOTE | ~2022-04-05 | US_ITS ---
EXAMINATION: US ABDOMEN LIMITED CLINICAL INFORMATION: Lower abdominal pain, periumbilical pain. COMPARISON: Renal ultrasound 10/08/2021 and 11/24/2019. X-ray KUB 02/06/2021 and 03/19/2019. CT abdomen and pelvis 10/25/2018. CT chest 09/16/2020 TECHNIQUE: Real-time imaging of the area indicated by patient. FINDINGS: No hernia is seen. There is a small hyperechoic area present which is nonmobile measuring 3 x 7 x 3 mm in size. US/US abdomen limited IMPRESSION: No hernia is seen. Tiny echogenic subcutaneous mass could represent a tiny lipoma. Follow-up ultrasound exam in 6 months is recommended to document stability.
== END 2022-04-05 10:28 | disposition home or self-care (01) ==
LOC: HO.HMGCX 10:27
PROVIDERS: Visit Provider Internal Medicine Gastroenterology
DX: R10.30 Lower abdominal pain, unspecified (principal)
CPT/HCPCS: 76705

== ENCOUNTER 2022-04-09 10:17 | Emergency (ER) | payer MEDICARE, MEDICAID, SELFPAY ==
[2022-04-09 10:30] VITALS: BP 123/81; PULSE 62; RESP 18; TEMP 36.4; O2SAT 98; BMI 29.3
== END 2022-04-09 14:23 | disposition left against medical advice (07) ==
PROVIDERS: Emergency Provider Emergency Medicine; PCP Internal Medicine
DX: M25.512 Pain in left shoulder (principal)
CPT/HCPCS: 99281

== ENCOUNTER 2022-04-21 09:23 | Emergency (ER) | payer MEDICARE, MEDICAID, OTHER, SELFPAY ==
[2022-04-21 09:27] VITALS: BP 148/93; PULSE 77; RESP 18; TEMP 36.6; O2SAT 97; BMI 22.7
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
== END 2022-04-21 10:24 | disposition home or self-care (01) ==
PROVIDERS: Emergency Provider Student in an Organized Health Care Education/Training Program; PCP Internal Medicine
DX: S43.422A Sprain of left rotator cuff capsule, initial encounter (principal); M25.512 Pain in left shoulder; X58.XXXA Exposure to other specified factors, initial encounter; Y93.9 Activity, unspecified; Y92.9 Unspecified place or not applicable; Y99.9 Unspecified external cause status; Z79.899 Other long term (current) drug therapy; Z87.891 Personal history of nicotine dependence
CPT/HCPCS: 99283

== ENCOUNTER 2022-04-23 09:21 | Emergency (ER) | payer OTHER, MEDICARE, MEDICAID, SELFPAY ==
[2022-04-23 10:08] VITALS: BP 120/85; PULSE 63; RESP 62; O2SAT 97; BMI 30.4
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
[2022-04-23] MEDS: Lidocaine 4 % Patch ADH..PATCH 1 PATCH TRANSDERMA (11:17)
== END 2022-04-23 11:54 | disposition home or self-care (01) ==
PROVIDERS: Emergency Provider Emergency Medicine; PCP Internal Medicine
DX: G89.29 Other chronic pain (principal); M25.512 Pain in left shoulder; S46.002D Unspecified injury of muscle(s) and tendon(s) of the rotator cuff of left shoulder, subsequent encounter; V49.9XXD Car occupant (driver) (passenger) injured in unspecified traffic accident, subsequent encounter; Z79.891 Long term (current) use of opiate analgesic
CPT/HCPCS: 99283

== ENCOUNTER 2022-05-06 09:58 | Outpatient (REF) | payer MEDICARE, MEDICAID, SELFPAY ==
[2022-05-06 11:52] LABS: MANUAL DIFF FLAG NO
[2022-05-06 12:15] LABS: Basophils Absolute Auto 0.1 X10*3/uL (0.0-0.2); Basophils Percent Auto 0.8 % (0-2); Eosinophils Absolute Auto 0.1 X10*3/uL (0.0-0.4); Eosinophils Percent Auto 1.2 % (0-4); Hematocrit 42.9 % (42.0-52.0); Hemoglobin 14.3 g/dl (14.0-18.0); Imm Gran Abs Auto 0.03 X10*3/uL (0.00-0.03); Imm Gran Pct Auto 0.5 % (0.0-0.4); Lymphocytes Absolute Auto 1.8 X10*3/uL (1.2-4.9); Lymphocytes Percent Auto 27.5 % (20-40); Mean Corpuscular HGB Conc 33.3 g/dl (31.0-36.0); Mean Corpuscular Hemoglobin 29.9 pg (27.0-33.0); Mean Corpuscular Volume 89.6 fL (80.0-98.0); Mean Platelet Volume 10.3 fL (9.4-12.4); Monocytes Absolute Auto 0.4 X10*3/uL (0.1-1.2); Monocytes Percent Auto 6.7 % (2-11); Neutrophils Absolute Auto 4.2 x10*3/uL (2.0-8.3); Neutrophils Percent Auto 63.3 % (45-73); Platelet Count 265 X10*3/uL (160-400); Red Blood Count 4.79 X10*6/uL (4.60-5.80); Red Cell Distribution Width 12.8 % (11.0-16.0); White Blood Count 6.6 X10*3/uL (4.8-10.8)
[2022-05-06 13:07] LABS: Alanine Aminotransferase 53 U/L (0-40); Albumin Level 4.5 g/dL (3.5-5.0); Alkaline Phosphatase 100 U/L (39-117); Anion Gap 12 (12-20); Aspartate Amino Transferase 23 U/L (5-37); Bilirubin Total 0.7 mg/dL (0.0-1.0); Blood Urea Nitrogen 9 mg/dL (9-16); Calcium 9.6 mg/dL (8.4-10.2); Carbon Dioxide 26 mmol/L (22-29); Chloride 107 mmol/L (96-108); Estimated Glomerular Filt Rate > 60; Glucose Random 100 mg/dL (60-115); Potassium 4.1 mmol/L (3.3-5.1); Sodium 141 mmol/L (135-145)
[2022-05-06 13:24] LABS: Prostate Specific Antigen 0.19 ng/mL (<0.05-4.0)
== END 2022-05-06 09:59 | disposition home or self-care (01) ==
LOC: HO.LAB 09:58
PROVIDERS: Urology; PCP Internal Medicine; Visit Provider Internal Medicine Gastroenterology
DX: Z12.5 Encounter for screening for malignant neoplasm of prostate (principal); N32.0 Bladder-neck obstruction; K75.81 Nonalcoholic steatohepatitis (NASH); K21.9 Gastro-esophageal reflux disease without esophagitis; J44.9 Chronic obstructive pulmonary disease, unspecified; R91.8 Other nonspecific abnormal finding of lung field
CPT/HCPCS: 36415; 80053; 84153; 85025; 99212

== ENCOUNTER 2022-05-09 07:24 | Day surgery (SDC) | payer MEDICARE, MEDICAID, SELFPAY ==
--- NOTE | 2022-05-09 06:55 | MHC.SHP ---
Pre-Procedural Eval Section A Date of Service: 05/09/22 The patient is an INPATIENT: No The History & Physical has been completed within 30 days and I have reviewed it.: Yes Section B Chief Complaint: Esophageal obstruction,Lower abdominal pain, unspe Allergies: Allergies Allergy/AdvReac Type Severity Reaction Status Date / Time metronidazole [From FLAGYL] Allergy Severe RASH Verified 05/06/22 10:48 tree and shrub pollen [TREE] Allergy Severe Rash Verified 05/06/22 10:48 dexamethasone AdvReac Severe palpitatiio Verified 05/06/22 10:48 ns fluticasone furoate AdvReac Severe palpitations, Verified 05/06/22 10:48 [Breo Ellipta] high BP umeclidinium AdvReac Severe palpitation Verified 05/06/22 10:48 [Incruse Ellipta] s Bee sting Allergy Severe Hives/Difficulty Uncoded 05/06/22 10:48 breathing Clindamycin HCl Allergy Severe Hives Uncoded 05/06/22 10:48 ENVIRONMENTAL Allergy Severe Rash Uncoded 05/06/22 10:48 Plan I have reviewed the history and physical and performed a pertinent physical examination on my patient. No changes have occurred unless specified. EGD due to swallowing sx and colonsocopy due to hx of polyps Time Spent With Patient Time: Total time managing care of this patient today ____ minutes.
[2022-05-09 07:18] VITALS: BMI 28.7
[2022-05-09] MEDS: Lactated Ringers 1,000 ML 50 ML IVCONT (07:47)
[2022-05-09 08:00] VITALS: BP 133/96; PULSE 74; RESP 18; TEMP 36.8; O2SAT 97
--- NOTE | 2022-05-09 08:03 | HO.ANESPROP2 ---
HPI - Anesthesia Eval Consult details Narrative: 56 M for EGD and colonoscopy denies CP , SOB h/o left shoulder pain had workup for palpitation 1 year ago , as per patient workup negative ,went to urgent care 10 days ago with left shoulder pain , as per patient EKG was non diagnostic for ischemia and patient was discharged home . [facility] Active Problems Active Problems: All Active Problems (Updated 04/24/22 @ 00:01 by Shayy Pace) Lower abdominal pain (Acute) Neuropathy (Acute) Bladder outlet obstruction (Acute) Renal cyst (Acute) Flank pain (Acute) Chest pain (Acute) Cervical radiculopathy (Acute) Pre-op evaluation (Acute) Esophageal stricture (Acute) Urgency of micturition (Acute) Palpitation (Acute) Bladder spasm (Acute) Dysphagia (Acute) Nonalcoholic steatohepatitis (DELUNA) (Acute) Hx of chest pain (Acute) KATHLEEN on CPAP (Acute) High cholesterol (Acute) Hypertension (Acute) Shortness of breath (Acute) Hypoglycemia (Acute) Asthma-COPD overlap syndrome (Acute) Pulmonary nodules (Acute) GERD (gastroesophageal reflux disease) (Acute) COPD (chronic obstructive pulmonary disease) (Acute) Anxiety (Acute) Past Medical History Medical History Anxiety Asthma Asthma-COPD overlap syndrome Back pain Chronic pain COPD (chronic obstructive pulmonary disease) Dysphagia GERD (gastroesophageal reflux disease) High cholesterol History of colitis History of esophageal spasm History of IBS Hx of allergic rhinitis Hx of chest pain Hx of goiter Hx of multiple pulmonary nodules Hx of renal calculi Hypertension Hypoglycemia KATHLEEN on CPAP Osteoarthritis of both hips Panic attacks PTSD (post-traumatic stress disorder) Pulmonary nodules Shortness of breath Functional capacity: independent ambulation Family History Family History Father No problems noted. Mother No problems noted. Family history of problems with anesthesia: Yes (PONV) Surgical History Surgical History H/O neck surgery History of nasal surgery Hx of cervical discectomy Hx of colonoscopy Hx of endoscopy Hx of esophagogastroduodenoscopy Hx of left inguinal hernia repair Hx of tonsillectomy Hx of transurethral resection of prostate History of Problems with Anesthesia: No Social History Social History Household Members: Other Household Members Other:: Mother Alcohol intake: never Patient Tobacco Use Status: Former Tobacco user Tobacco use type: Cigarette Years Smoked: 30 Second Hand Smoke Exposure: No Current occupational status: unemployed Meds Allergies Allergy/AdvReac Type Severity Reaction Status Date / Time metronidazole [From FLAGYL] Allergy Severe RASH Verified 05/06/22 10:48 tree and shrub pollen [TREE] Allergy Severe Rash Verified 05/06/22 10:48 dexamethasone AdvReac Severe palpitatiio Verified 05/06/22 10:48 ns fluticasone furoate AdvReac Severe palpitations, Verified 05/06/22 10:48 [Breo Ellipta] high BP umeclidinium AdvReac Severe palpitation Verified 05/06/22 10:48 [Incruse Ellipta] s Bee sting Allergy Severe Hives/Difficulty Uncoded 05/06/22 10:48 breathing Clindamycin HCl Allergy Severe Hives Uncoded 05/06/22 10:48 ENVIRONMENTAL Allergy Severe Rash Uncoded 05/06/22 10:48 Active Medications: Current Medications Lactated Ringer's (Lr) 1,000 mls @ 50 mls/hr IVCONT .Q20H RUSTY Last Admin: 05/09/22 07:47 Dose: 50 mls/hr Home Medications Medication Instructions Recorded Confirmed Last Taken Type levocetirizine 5 mg tablet 5 mg PO DIRECTED 12/23/19 05/09/22 Unknown History oxycodone 20 mg tablet,crush 20 mg PO Q12H 04/13/20 05/09/22 07/05/20 05:00 History resistant,extended release 12 hr COVID-19 antigen test (QuickVue #1 ea 12/14/21 12/18/21 Unknown History At-Home COVID-19 Test kit) lisinopril 5 mg tablet mg 05/08/22 05/08/22 Unknown History cholecalciferol (vitamin D3) 50 05/09/22 05/09/22 Unknown History mcg (2,000 unit) capsule (Vitamin D3) ipratropium 0.5 mg-albuterol 3 mg ml inhalation 05/09/22 Unknown History (2.5 mg base)/3 mL nebulization soln levalbuterol tartrate 45 inhalation 05/09/22 Unknown History mcg/actuation aerosol inhaler oxycodone 20 mg tablet mg 05/09/22 05/09/22 02:42 History Exam Exam Date and Time: May 09, 2022802 Height,Weight and Vital Signs: Height 5 ft 8 in Weight 85.729 kg Last Vital Signs Temp 98.3 F 05/09/22 08:00 Pulse 74 05/09/22 08:00 Resp 18 05/09/22 08:00 BP 133/96 H 05/09/22 08:00 Pulse Ox 97 05/09/22 08:00 O2 Del Method 05/09/22 08:00 Airway Mallampati Class: IV TM Dist: >3cm Neck ROM: Limited Loose/Missing/Broken Teeth: Yes (Poor dentition ) Heart: S1,S2 Lungs: b/l breath sounds Assessment and Plan Assessment Anesthesia Assessment: Anesthesia Plan Discussed and Chart Reviewed Final Anesthetic Review Family History of Problems with Anesthesia: Yes (PONV) History of Problems with Anesthesia: No NPO: Yes ASA Class: III Final Preanesthetic Review: Meds/Allgs Chart Reviewed, Consent Obtained/Reviewed and Anes Risks/Benef Reviewed Patient Risk: Intermediate Procedure Risk: Intermediate Anesthetic Plan Anesthetic Plan: MAC: Disposition: Standard PACU
--- NOTE | 2022-05-09 08:16 | P.OP_ITS ---
Operative Note Operative Note Date of Service: 05/09/22 Narrative: Operative Information Procedure Description: EGD, Colonoscopy Indication: abnormal swallowing sensation, hx of colon polyps Anesthesia: MAC FLEXIBLE TRANSORAL UPPER GASTROINTESTINAL ENDOSCOPY AND COLONOSCOPY PROCEDURE NOTE UPPER ENDOSCOPY Consent: Indications for the procedure and potential complications of bleeding, perforation, reaction to medications and missed diagnosis were discussed with the patient and informed consent was obtained. Instrument: Olympus GIF H 190 J mid size upper endoscope Monitoring: Vital signs and clinical assessment, continuous EKG monitoring, Pulse oximetry, Carbon Dioxide monitoring and blood pressure monitoring were done throughout the procedure. Procedure: The patient was placed in the left lateral decubitis position and pre-procedure medications were administered and a bite block was placed. The endoscope was inserted into the mouth and advanced under direct vision to the third part of duodenum. A careful inspection was made as the upper endoscope was withdrawn including a retroflexed examination of the proximal stomach; Findings and interventions are described below. Findings: Larynx:normal Esophagus: GE junction at 40 cm, diaphragm hiatus at 40 cm, normal mucosa, slightly tight GEJ, dilated with 12 mm balloon no tear seen. UES also dilated to 13 mm Stomach: Normal mucosa. Grade 2 flap valve on retroflexed examination of the cardia. Partial wrap from prior fundoplication noted Duodenum: Normal bulb and descending duodenum, Intervention: Balloon dilation COLONOSCOPY Instrument: Olympus variable stiffness pediatric scope 190L Colonoscopy Monitoring: Vital signs and clinical assessment, continuous EKG monitoring, Pulse oximetry, Carbon Dioxide monitoring and blood pressure monitoring were done throughout the procedure. Colon withdrawal time was 17 minutes. Procedure: The patient was placed in the left lateral decubitis position and pre-procedure medications were administered. After a digital rectal examination of the ano-rectum, the video colonoscope was inserted into the rectum and advanced through the colon to the cecum/TI. The colonoscope was slowly withdrawn in a retrograde panoramic fashion and the colon mucosa was carefully examined including a retroflexed view of the rectum. Findings and interventions are described below. Procedure Difficulty:easy Findings: Terminal Ileum-normal Cecum: 10-12 mm sessile polyp removed with hot snare Ascending Colon: 10 mm sessile polyp removed with cold snare Transverse Colon - 10 mm sessile polyp removed with cold snare Descending Colon:normal Sigmoid Colon: mild diverticulosis Rectum: Retroflexion with small internal hemorrhoids, grade I Anorectum - normal Colon preparation: [place] Bowel Preparation Scale Right colon; 2 Transverse colon: 2 Left colon; 3 (0 = Unprepared colon segment with mucosa not seen due to solid stool that cannot be cleared. 1 = Portion of mucosa of the colon segment seen, but other areas of the colon segment not well seen due to staining, residual stool and/or opaque liquid. 2 = Minor amount of residual staining, small fragments of stool and/or opaque liquid, but mucosa of colon segment seen well. 3 = Entire mucosa of colon segment seen well with no residual staining, small fragments of stool or opaque liquid) Impression and Post Procedure Diagnosis: Endoscopy Findings: s/p surgical changes Colonoscopy Findings: polyps internal hemorrhoids diverticular disease Plan: Await Pathology results Repeat Colonoscopy in 3 years or earlier if clinically indicated High fiber diet leaflet avoid straining at stool, epsom salts and sitz bath, anusol supps or cream Above findings were reviewed with the patient and relevant handouts were provided if indicated.
[2022-05-09 09:29] VITALS: BP 97/48; PULSE 93; RESP 20; TEMP 37.1; O2SAT 98
[2022-05-09 09:45] VITALS: BP 118/79; PULSE 87; RESP 20; TEMP 37.1; O2SAT 95
== END 2022-05-09 10:19 | disposition home or self-care (01) ==
PROVIDERS: PCP Internal Medicine; Visit Provider Internal Medicine Gastroenterology
PROC: (CPT 45385; principal; 2022-05-09 08:20)
DX: R10.30 Lower abdominal pain, unspecified (principal); Z86.010 Personal history of colon polyps; D12.0 Benign neoplasm of cecum; D12.2 Benign neoplasm of ascending colon; K63.5 Polyp of colon; K57.30 Diverticulosis of large intestine without perforation or abscess without bleeding; K64.0 First degree hemorrhoids; K22.2 Esophageal obstruction; K44.9 Diaphragmatic hernia without obstruction or gangrene; K21.9 Gastro-esophageal reflux disease without esophagitis; K75.81 Nonalcoholic steatohepatitis (NASH); G47.33 Obstructive sleep apnea (adult) (pediatric); J44.9 Chronic obstructive pulmonary disease, unspecified; E78.00 Pure hypercholesterolemia, unspecified; I10 Essential (primary) hypertension; Z79.899 Other long term (current) drug therapy; Z88.8 Allergy status to other drugs, medicaments and biological substances; Z88.1 Allergy status to other antibiotic agents; Z98.890 Other specified postprocedural states; Z87.891 Personal history of nicotine dependence
CPT/HCPCS: 45385; 43249; 88305; C1726

== ENCOUNTER 2022-08-12 08:44 | Emergency (ER) | payer MEDICARE, MEDICAID, SELFPAY ==
--- NOTE | ~2022-08-12 | XR_ITS ---
EXAMINATION: XR SHOULDER, LEFT CLINICAL INFORMATION: Pain. COMPARISON: Previous left shoulder MRI most recent September 2016. TECHNIQUE: 3 views of the left shoulder. FINDINGS: Bone alignment is normal. No fracture or dislocation. Prominent coronoid process extending more laterally, overlapping the humeral head. Normal-appearing glenohumeral joint. Arthritis at the acromioclavicular joint. Irregularity of the inferior surface of the acromion and small osteophyte. Soft tissue calcification adjacent to the greater tuberosity suggestive of calcific tendinitis. XR/XR shoulder LT min 2V IMPRESSION: Arthritis at the acromioclavicular joint and irregularity of the undersurface of the acromion and small osteophyte. Soft tissue calcification suggestive of calcific tendinitis. Prominent coronoid process.
[2022-08-12 09:04] VITALS: BP 148/83; PULSE 55; RESP 20; TEMP 36.6; O2SAT 98; BMI 29.5
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
== END 2022-08-12 10:21 | disposition home or self-care (01) ==
PROVIDERS: Emergency Provider Emergency Medicine; PCP Internal Medicine
DX: M25.512 Pain in left shoulder (principal); I10 Essential (primary) hypertension; E78.5 Hyperlipidemia, unspecified; Z79.02 Long term (current) use of antithrombotics/antiplatelets; Z79.899 Other long term (current) drug therapy; Z87.891 Personal history of nicotine dependence
CPT/HCPCS: 73030; 99282; 99283

== ENCOUNTER 2022-09-30 09:18 | Outpatient (AMB) | payer MEDICARE, MEDICAID, SELFPAY ==
--- NOTE | 2022-09-30 10:04 | MHC.OFFVIS ---
Intake Intake Visit Reasons: 5 mo fu Allergies metronidazole [From FLAGYL] Allergy (Severe, Verified 05/06/22 10:48) RASH tree and shrub pollen [TREE] Allergy (Severe, Verified 05/06/22 10:48) Rash dexamethasone Adverse Reaction (Severe, Verified 05/06/22 10:48) palpitatiions fluticasone furoate [Breo Ellipta] Adverse Reaction (Severe, Verified 05/06/22 10:48) palpitations, high BP umeclidinium [Incruse Ellipta] Adverse Reaction (Severe, Verified 05/06/22 10:48) palpitations Bee sting Allergy (Severe, Uncoded 05/06/22 10:48) Hives/Difficulty breathing Clindamycin HCl Allergy (Severe, Uncoded 05/06/22 10:48) Hives ENVIRONMENTAL Allergy (Severe, Uncoded 05/06/22 10:48) Rash HPI 5 mo fu HPI Details 57 yr old m here for f/u RECAP: ? HE had a esophageal dilation with 16 mm bougie, tear distal and proximal ? he had chest pain and discomfort and went to ED< cxr normal and he was given sucralfate and pepcid ? now feeling amanda ? still some discomfort when drinking water, not so bad with other types of foods ? breathing is good ? stool is normal, no blood, no melena ? he had c/o suprapubic pain and urine hesitancy sent to urology and he had TURP done ? he had further EGD with dilation balloon at [facility] and [facility] with small tears noted--done 05/2019 ? he restarted dexilant after last apptm EGD repeated with 16 mm bougie with small tear f/u EGD 06/2020--dilated with bougie with small proximal tear he was waiting for cervical spine plate removal which was done but did not alter his swallowing issues he also has DELUNA-- mild ALt elevation US- 04/2020-- fatty liver, renal cyst Eventually referred for manometry and high IRP with concern for pre achalasia He saw Olga nielsen and plan was for heller myotomy, he had repeat Ba swallow 01/2021 with narrowing at GEJ with holdup of tablet, some dysmotility noted He eventually had the myotomy and a fundoplication Ba swallow 11/2021--- no stricture, fundoplication noted, pill went down ok He had Ba swallow- at [facility] with mild narrowing GEJ, fundoplication noted , no obstruction or laryngeal penetration HE had EGD and colonoscopy 05/16 with adenomatous polyps removed and dilation of GEJ which was tight from his fundoplication INTERIM: He was doing well after dilation but last few weeks noted recurrence of occasional swallowing issues with solids, but it is periodic no choking no chest pain recovering from shoudler surgery asthma is controlled trying to lose weight EXAM: GENERAL: The patient is well developed and nontoxic. VITAL SIGNS:see workflow HEENT: Nonicteric sclerae, PERRLA, EOMI. Oropharynx clear. Moist mucous membranes. Conjunctivae appear well perfused. No thyroid mass. CHEST: Chest wall is nontender. HEART: Regular rate and rhythm without murmurs. LUNGS: Clear to auscultation bilaterally. ABDOMEN: Soft, positive bowel sounds, nontender, no organomegaly. lap scars healing on abdomen SKIN: No rash, no excessive bruising, petechiae, or purpura. NEUROLOGIC: Cranial nerves II-XII intact without motor/sensory deficit. Assessment & Plan 1/ dysphagia-- better after dilation, maybe recurring 2/ GERd, good control with PPI and after fundoplication 3/ DELUNA-mild 4/ tubular adenomas PLAN: 1/ cont with PPI 2/ EGD with repeat balloon dilation 3/ he is also due another colonoscopy in 3 yrs ? [facility] Medical History Anxiety Asthma Asthma-COPD overlap syndrome Back pain Chronic pain COPD (chronic obstructive pulmonary disease) Dysphagia GERD (gastroesophageal reflux disease) High cholesterol History of colitis History of esophageal spasm History of IBS Hx of allergic rhinitis Hx of chest pain Hx of goiter Hx of multiple pulmonary nodules Hx of renal calculi Hypertension Hypoglycemia KATHLEEN on CPAP Osteoarthritis of both hips Panic attacks PTSD (post-traumatic stress disorder) Pulmonary nodules Shortness of breath Surgical History H/O neck surgery History of nasal surgery Hx of cervical discectomy Hx of colonoscopy Hx of endoscopy Hx of esophagogastroduodenoscopy Hx of left inguinal hernia repair Hx of tonsillectomy Hx of transurethral resection of prostate Family History Father No problems noted. Mother No problems noted. Social History Household Members: Other Household Members Other:: Mother Alcohol intake: never Patient Tobacco Use Status: Former Tobacco user Tobacco use type: Cigarette Years Smoked: 30 Second Hand Smoke Exposure: No Advance Directives: No Advance Directives Information Provided: Yes Current occupational status: unemployed Assessment & Plan Assessment & Plan (1) Dysphagia: Code(s): R13.10 - Dysphagia, unspecified (2) Nonalcoholic steatohepatitis (DELUNA): Code(s): K75.81 - Nonalcoholic steatohepatitis (DELUNA) (3) Tubular adenoma: Code(s): D36.9 - Benign neoplasm, unspecified site Coding Level of Care Code Est Pt Level 3 (74584) Diagnoses Dysphagia R13.10 Nonalcoholic steatohepatitis (DELUNA) K75.81 Tubular adenoma D36.9
== END 2022-09-30 10:40 | disposition home or self-care (01) ==
LOC: HO.HGI 10:18
PROVIDERS: PCP Internal Medicine; Visit Provider Internal Medicine Gastroenterology
DX: R13.10 Dysphagia, unspecified (principal); K75.81 Nonalcoholic steatohepatitis (NASH); D36.9 Benign neoplasm, unspecified site
CPT/HCPCS: 99213

== ENCOUNTER → 2022-09-30 10:17 | Outpatient (BNVA) | payer MEDICARE, MEDICAID, SELFPAY | PROVIDERS: PCP Internal Medicine; Visit Provider Internal Medicine Gastroenterology | DX: R13.10 Dysphagia, unspecified (principal); K75.81 Nonalcoholic steatohepatitis (NASH); D36.9 Benign neoplasm, unspecified site | CPT/HCPCS: 99212 ==

== ENCOUNTER 2022-10-29 09:39 | Emergency (ER) | payer MEDICARE, MEDICAID, SELFPAY ==
--- NOTE | ~2022-10-29 | XR_ITS ---
EXAMINATION: XR CHEST CLINICAL INFORMATION: Epigastric pain. COMPARISON: 03/30/2022 chest radiographs. TECHNIQUE: 2 views of the chest were obtained. FINDINGS: No significant abnormality is noted involving the heart, lungs, mediastinum, bony thorax or soft tissues. XR/XR chest 2V IMPRESSION: No acute cardiopulmonary process.
[2022-10-29 09:48] VITALS: BP 134/87; PULSE 79; RESP 18; TEMP 37.1; O2SAT 96; BMI 29.3
--- NOTE | 2022-10-29 10:47 | ED_ITS ---
HPI - General Adult General Chief complaint: General Medical Stated complaint: Diff Swallowing Time Seen by Provider: 10/29/22 10:23 Source: patient, RN notes reviewed and old records reviewed Mode of arrival: ambulatory History of Present Illness HPI narrative: 57-year-old male with a past medical history of KATHLEEN and CPAP, DELUNA, asthma/COPD overlap syndrome, GERD, dysphasia s/p esophageal dilation, s/p EGD and colonoscopy 05/16 with polyp removal and dilation of GEJ, presenting to the ED complaining substernal/epigastric discomfort noted this morning after drinking coffee. Reports felt like asthma exacerbation, however denies CP/SOB at present. States when swallows feels like some food/liquid is getting stuck which is acute on chronic, admits he is scheduled for esophageal re-dilation in [address] Beal. Denies fever, vomiting, diarrhea Related Data Home Medications Medication Instructions Recorded Confirmed levocetirizine 5 mg tablet 5 mg PO DIRECTED 12/23/19 09/30/22 oxycodone 20 mg tablet,crush 20 mg PO Q12H 04/13/20 09/30/22 resistant,extended release 12 hr lisinopril 5 mg tablet mg 05/08/22 09/30/22 cholecalciferol (vitamin D3) 50 05/09/22 09/30/22 mcg (2,000 unit) capsule (Vitamin D3) ipratropium 0.5 mg-albuterol 3 mg ml inhalation 05/09/22 09/30/22 (2.5 mg base)/3 mL nebulization soln levalbuterol tartrate 45 inhalation 05/09/22 09/30/22 mcg/actuation aerosol inhaler oxycodone 20 mg tablet mg 05/09/22 09/30/22 Previous Rx's Medication Instructions Recorded atorvastatin 20 mg tablet 20 mg PO DAILY 30 days #30 tabs 01/25/20 pentoxifylline 400 mg 400 mg PO TID #90 tabs 05/09/22 tablet,extended release cyclobenzaprine 5 mg tablet 5 mg PO TID PRN left shoulder pain 08/12/22 7 days #21 tabs ipratropium 0.5 mg-albuterol 3 mg 3 ml inhalation BID 30 days #180 mL 09/19/22 (2.5 mg base)/3 mL nebulization soln esomeprazole magnesium 40 mg 40 mg PO DAILY #90 caps 09/30/22 capsule,delayed release Magic Mouthwash 10 ml PO QID #240 mL 10/01/22 Diphen/Lido/Antacid 1:1:1 240 mL suspension Allergies Allergy/AdvReac Type Severity Reaction Status Date / Time metronidazole [From FLAGYL] Allergy Severe RASH Verified 05/06/22 10:48 tree and shrub pollen [TREE] Allergy Severe Rash Verified 05/06/22 10:48 dexamethasone AdvReac Severe palpitatiio Verified 05/06/22 10:48 ns fluticasone furoate AdvReac Severe palpitations, Verified 05/06/22 10:48 [Breo Ellipta] high BP umeclidinium AdvReac Severe palpitation Verified 05/06/22 10:48 [Incruse Ellipta] s Bee sting Allergy Severe Hives/Difficulty Uncoded 05/06/22 10:48 breathing Clindamycin HCl Allergy Severe Hives Uncoded 05/06/22 10:48 ENVIRONMENTAL Allergy Severe Rash Uncoded 05/06/22 10:48 Review of Systems Review of Systems: Constitutional: No Fever, No Chills ENT/Mouth: No Ear Pain, No Nasal Congestion, No Sinus Pain, No Hoarseness, No sore throat, No Rhinorrhea, No Swallowing Difficulty Cardiovascular: +substernal Chest Pain, No SOB Respiratory: No Cough, No Sputum, No Wheezing Gastrointestinal: No Nausea, No Vomiting, No Diarrhea, No Constipation, No Abdominal pain, +FB sensation in esophagus Genitourinary: No Dysuria, No Urgency, No Flank Pain Musculoskeletal: No joint pain, No Myalgias, No Joint Swelling Skin: No Skin Lesions, No rash Neuro: No Weakness Yes all other systems are reviewed and are negative Constitutional: Constitutional: Reports as per [facility] Past Medical History Attestation statement: The following information was validated with the patient. Source: old records reviewed Medical History Anxiety Asthma Asthma-COPD overlap syndrome Back pain Chronic pain COPD (chronic obstructive pulmonary disease) Dysphagia GERD (gastroesophageal reflux disease) High cholesterol History of colitis History of esophageal spasm History of IBS Hx of allergic rhinitis Hx of chest pain Hx of goiter Hx of multiple pulmonary nodules Hx of renal calculi Hypertension Hypoglycemia KATHLEEN on CPAP Osteoarthritis of both hips Panic attacks PTSD (post-traumatic stress disorder) Pulmonary nodules Shortness of breath Surgical History H/O neck surgery History of nasal surgery Hx of cervical discectomy Hx of colonoscopy Hx of endoscopy Hx of esophagogastroduodenoscopy Hx of left inguinal hernia repair Hx of tonsillectomy Hx of transurethral resection of prostate Family History Family History Father No problems noted. Mother No problems noted. Social History Social History Household Members: Other Household Members Other:: Mother Alcohol intake: never Patient Tobacco Use Status: Former Tobacco user Tobacco use type: Cigarette Years Smoked: 30 Second Hand Smoke Exposure: No Advance Directives: No Current occupational status: unemployed Physical Exam ED Vital Signs: Vital Signs - 24 hr 10/29/22 09:48 Temperature 98.7 F Pulse Rate 79 Respiratory Rate 18 Blood Pressure 134/87 Pulse Oximetry 96 Oxygen Delivery Method Room Air BMI result Body Mass Index 29.3 Const General: cooperative, healthy appearing and no acute distress Orientation/consciousness: patient oriented x3 Limitations: no limitations HENMT Head: Yes normal to inspection and Yes atraumatic Ears: hearing grossly normal bilaterally General nose exam: Normal external nose present Face and sinus: Yes normal facial exam Throat: Yes posterior oropharynx normal, Yes tonsils normal, Yes uvula midline, No peritonsillar mass, No uvula laterally displaced and No uvular edema Eyes General: appearance normal, both eyes and all related structures EOM: EOMs intact bilaterally Neck Neck: Yes normal visual inspection, Yes full ROM, Yes no meningeal signs, Yes trachea midline, Yes supple, No anterior neck swelling and No torticollis Resp Effort & Inspection: normal respiratory effort, no respiratory distress and no stridor Auscultation: clear to auscultation bilaterally, no crackles and no wheezes Cardio Rate: regular rate Heart sounds: S1 normal heart sound present and S2 normal heart sound present GI Inspection: Yes normal to inspection Palpation (GI): Soft to palpation, Tenderness to palpation present (GI) in the epigastrum (chronic per patient), no guarding and not rigid Skin Rashes: no rashes Wounds: no wounds Neuro General: patient oriented x3, tone normal and no meningeal signs Gait exam (Neuro): Normal gait present Extrem General: Yes normal to inspection Course Course Course Narrative: -1200--no leukocytosis. Alt chronically elevated XR chest 2V IMPRESSION: No acute cardiopulmonary process. -1300--troponin neg >> patient tolerating p.o. in the ED without difficulty or aspiration, recommended close follow-up with GI Results discussed with patient including worrisome signs and symptoms and strict return precautions, and when to return to the emergency department. They verba lized understanding and feel safe for discharge at this time. Medical Decision Making Medical Decision Making [facility] Narrative: 57-year-old male with a past medical history of KATHLEEN and CPAP, DELUNA, asthma/COPD overlap syndrome, GERD, dysphasia s/p esophageal dilation, s/p EGD and colonoscopy 05/16 with polyp removal and dilation of GEJ, presenting to the ED complaining substernal/epigastric discomfort noted this morning after drinking coffee. On exam vital signs stable, NAD, nontoxic appearing, symptoms are acute on chronic, lungs CTA, no wheezing, or pharynx WNL, talking in complete sentences, no stridor, abdomen soft with mild epigastric tenderness which is chronic per patient. Concern for acute on chronic dysphagia due to known stricture/narrowing requiring dilation vs atypical ACS. Rule out perforation. Unlikely asthma/COPD exacerbation with clear lungs or pneumonia/pancreatitis Plan: EKG, labs, p.o. challenge Please refer to course for remaining clinical decision making, interpretation of labs/imaging results, and discussions with consultants and/or family members. Differential Diagnosis Differential Diagnoses: The differential diagnosis associated with the presentation includes As above Admission/Observation Consideration of admission/observation: Escalation of care including admission/observation considered Lab Data [facility] Lab Attestation statement: I reviewed the patient's lab results. 10/29/22 11:27 10/29/22 11:27 Labs: Lab Results 10/29/22 10/29/22 10/29/22 Range/Units 11:27 11:27 11:27 WBC 7.9 (4.8-10.8) X10*3/uL RBC 4.87 (4.60-5.80) X10*6/uL Hgb 14.2 (14.0-18.0) g/dl Hct 44.2 (42.0-52.0) % MCV 90.8 (80.0-98.0) fL MCH 29.2 (27.0-33.0) pg MCHC 32.1 (31.0-36.0) g/dl RDW 13.2 (11.0-16.0) % Plt Count 251 (160-400) X10*3/uL MPV 9.6 (9.4-12.4) fL Immature Gran % (Auto) 0.4 (0.0-0.4) % Neut % (Auto) 61.6 (45-73) % Lymph % (Auto) 30.0 (20-40) % Cooke % (Auto) 6.5 (2-11) % Eos % (Auto) 1.0 (0-4) % Baso % (Auto) 0.5 (0-2) % Lymph # (Auto) 2.4 (1.2-4.9) X10*3/uL Cooke # (Auto) 0.5 (0.1-1.2) X10*3/uL Eos # (Auto) 0.1 (0.0-0.4) X10*3/uL Baso # (Auto) 0.0 (0.0-0.2) X10*3/uL Abs Immat Gran (auto) 0.03 (0.00-0.03) X10*3/uL Absolute Neuts (auto) 4.9 (2.0-8.3) x10*3/uL Absolute Nucleated RBC 0.000 (0.0-0.012) X10*3/uL Nucleated RBC % (auto) 0.0 (0.0-0.2) /100WBC Sodium 142 (135-145) mmol/L Potassium 4.4 (3.3-5.1) mmol/L Chloride 106 (96-108) mmol/L Carbon Dioxide 28 (22-29) mmol/L Anion Gap 12 (12-20) BUN 11 (9-16) mg/dL Creatinine 0.85 (0.5-1.4) mg/dL Estim Creat Clear Calc 105.6 Estimated GFR > 60 Random Glucose 95 (60-115) mg/dL Calcium 9.7 (8.4-10.2) mg/dL Total Bilirubin 0.5 (0.0-1.0) mg/dL Direct Bilirubin 0.2 (0.0-0.5) mg/dL AST 21 (5-37) U/L ALT 54 H (0-40) U/L Alkaline Phosphatase 99 (39-117) U/L Troponin I High Sens 2.7 (<3.5-35.0) ng/L Total Protein 7.6 (6.5-8.0) g/dL Albumin 4.6 (3.5-5.0) g/dL Lipase 16 (8-78) U/L Independent Interpretation I performed an independent interpretation of an: EKG (sinus bradycardia rate of 55. QRS 86. QTC 411. No significant change when compared to prior. No STEMI) Radiology Impression Discussion of test interpretation with radiology: I have reviewed the radiologist's reading. External Record Review External record reviewed: Inpatient record, Office record, Outpatient record, Prior outpatient labs, Prior outpatient radiology, Primary care record and Outside ED record Tests considered The following testing was considered but not selected: As above Prescription Management I considered prescription management with: Pain Medication Discharge Plan Discharge Clinical Impression: Dysphagia Patient Disposition: Home, Self-Care Instructions: Dysphagia (ED) Additional Instructions: your blood work and chest x-ray were reassuring please follow up with your GI doctor eat soft foods For unable to eat or drink, developed chest pain of breath, persistent nausea/vomiting return to the ED Prescriptions: No Action atorvastatin 20 mg tablet 20 mg PO DAILY 30 Days Qty: 30 1RF ipratropium-albuterol 0.5 mg-3 mg(2.5 mg base)/3 mL solution for nebulization 3 ml inhalation BID 30 Days Qty: 180 11RF Magic Mouthwash Diphen/Lido/Antacid 1:1:1 240 mL suspension 10 ml PO QID Qty: 240 0RF Rx Instructions: Lidocaine Viscous 2 % 80mL; diphenhydramine 12.5 mg/5 mL 80mL; aluminum-mag hydrox-simeth [id number]/5mL 80mL lisinopril 5 mg tablet ipratropium-albuterol 0.5 mg-3 mg(2.5 mg base)/3 mL solution for nebulization INHALATION levalbuterol tartrate 45 mcg/actuation HFA aerosol inhaler INHALATION oxycodone 20 mg tablet cholecalciferol (vitamin D3) [Vitamin D3] 50 mcg (2,000 unit) capsule pentoxifylline 400 mg tablet extended release 400 mg PO TID Qty: 90 3RF Rx Instructions: must administer with a meal/food cyclobenzaprine 5 mg tablet 5 mg PO TID PRN (Reason: left shoulder pain) 7 Days Qty: 21 0RF levocetirizine 5 mg tablet 5 mg PO DIRECTED oxycodone 20 mg tablet,oral only,ext.rel.12 hr 20 mg PO Q12H esomeprazole magnesium 40 mg capsule,delayed release(DR/EC) 40 mg PO DAILY Qty: 90 1RF Referrals: [facility] [Provider Group] - 1 week Mireya Robledo MD [Primary Care Provider] - 5 days Interventions: ED Discharge Assessment Last Done: 10/29/22 13:25 Discharge Date/Time: 10/29/22 13:25
--- NOTE | 2022-10-29 11:08 | ECG_ITS ---
Test Reason : difficulty swallowing Blood Pressure : / mmHG Vent. Rate : 055 BPM Atrial Rate : 055 BPM P-R Int : 168 ms QRS Dur : 086 ms QT Int : 430 ms P-R-T Axes : 044 001 022 degrees QTc Int : 411 ms Sinus bradycardia Otherwise normal ECG When compared with ECG of 18-JAN-2021 12:29, No significant change was found Referred By: Sarah Chaudhari Electronically Signed By:Mukund Grant
[2022-10-29 11:32] LABS: MANUAL DIFF FLAG NO
[2022-10-29 11:37] LABS: Basophils Percent Auto 0.5 % (0-2); Eosinophils Absolute Auto 0.1 X10*3/uL (0.0-0.4); Hematocrit 44.2 % (42.0-52.0); Hemoglobin 14.2 g/dl (14.0-18.0); Imm Gran Abs Auto 0.03 X10*3/uL (0.00-0.03); Imm Gran Pct Auto 0.4 % (0.0-0.4); Lymphocytes Absolute Auto 2.4 X10*3/uL (1.2-4.9); Mean Corpuscular HGB Conc 32.1 g/dl (31.0-36.0); Mean Corpuscular Hemoglobin 29.2 pg (27.0-33.0); Mean Corpuscular Volume 90.8 fL (80.0-98.0); Mean Platelet Volume 9.6 fL (9.4-12.4); Monocytes Absolute Auto 0.5 X10*3/uL (0.1-1.2); Monocytes Percent Auto 6.5 % (2-11); Neutrophils Absolute Auto 4.9 x10*3/uL (2.0-8.3); Neutrophils Percent Auto 61.6 % (45-73); Platelet Count 251 X10*3/uL (160-400); Red Blood Count 4.87 X10*6/uL (4.60-5.80); Red Cell Distribution Width 13.2 % (11.0-16.0); White Blood Count 7.9 X10*3/uL (4.8-10.8)
[2022-10-29 11:58] LABS: Alanine Aminotransferase 54 U/L (0-40); Albumin Level 4.6 g/dL (3.5-5.0); Alkaline Phosphatase 99 U/L (39-117); Anion Gap 12 (12-20); Aspartate Amino Transferase 21 U/L (5-37); Bilirubin Direct 0.2 mg/dL (0.0-0.5); Bilirubin Total 0.5 mg/dL (0.0-1.0); Blood Urea Nitrogen 11 mg/dL (9-16); Calcium 9.7 mg/dL (8.4-10.2); Carbon Dioxide 28 mmol/L (22-29); Chloride 106 mmol/L (96-108); Creatinine Clr Calc Pharmacy 105.6; Estimated Glomerular Filt Rate > 60; Glucose Random 95 mg/dL (60-115); Lipase 16 U/L (8-78); Potassium 4.4 mmol/L (3.3-5.1); Sodium 142 mmol/L (135-145); Total Protein 7.6 g/dL (6.5-8.0)
[2022-10-29 12:06] LABS: Troponin-I High Sensitivity 2.7 ng/L (<3.5-35.0)
== END 2022-10-29 13:25 | disposition home or self-care (01) ==
PROVIDERS: Physician Assistant; Emergency Provider Emergency Medicine; PCP Internal Medicine
DX: R13.10 Dysphagia, unspecified (principal); R00.1 Bradycardia, unspecified; Z79.899 Other long term (current) drug therapy; Z87.891 Personal history of nicotine dependence
CPT/HCPCS: 36415; 71046; 80048; 80076; 83690; 84484; 85025; 93005; 99284

== ENCOUNTER → 2022-10-29 11:08 | Outpatient (BNV) | payer MEDICARE, MEDICAID, SELFPAY | PROVIDERS: Emergency Provider Emergency Medicine; PCP Internal Medicine; Visit Provider Internal Medicine Cardiovascular Disease | DX: R00.1 Bradycardia, unspecified (principal) | CPT/HCPCS: 93010 ==

== ENCOUNTER 2022-10-31 10:21 | Outpatient (AMB) | payer MEDICARE, MEDICAID, SELFPAY ==
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
[2022-10-31 10:28] VITALS: BP 134/78; PULSE 83; O2SAT 97; BMI 29.5
== END 2022-10-31 10:52 | disposition home or self-care (01) ==
PROVIDERS: PCP Internal Medicine; Visit Provider Hospitalist
DX: J44.9 Chronic obstructive pulmonary disease, unspecified (principal); R91.8 Other nonspecific abnormal finding of lung field; K21.9 Gastro-esophageal reflux disease without esophagitis
CPT/HCPCS: 99214

== ENCOUNTER → 2022-10-31 10:21 | Outpatient (BNVA) | payer MEDICARE, MEDICAID, SELFPAY | PROVIDERS: PCP Internal Medicine; Visit Provider Hospitalist | DX: J44.9 Chronic obstructive pulmonary disease, unspecified (principal); R91.8 Other nonspecific abnormal finding of lung field; K21.9 Gastro-esophageal reflux disease without esophagitis | CPT/HCPCS: 99212 ==

== ENCOUNTER 2022-11-26 08:28 | Outpatient (AMB) | payer MEDICARE, MEDICAID, SELFPAY ==
[2022-11-26 08:31] VITALS: BP 120/82; PULSE 63; BMI 29.4
--- NOTE | 2022-11-26 08:31 | A.OFFVIS_ITS ---
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 Allergies metronidazole [From FLAGYL] Allergy (Severe, Verified 11/26/22 08:42) RASH tree and shrub pollen [TREE] Allergy (Severe, Verified 11/26/22 08:42) Rash dexamethasone Adverse Reaction (Severe, Verified 11/26/22 08:42) palpitatiions fluticasone furoate [Breo Ellipta] Adverse Reaction (Severe, Verified 11/26/22 08:42) palpitations, high BP umeclidinium [Incruse Ellipta] Adverse Reaction (Severe, Verified 11/26/22 08:42) palpitations Bee sting Allergy (Severe, Uncoded 10/31/22 10:31) Hives/Difficulty breathing Clindamycin HCl Allergy (Severe, Uncoded 10/31/22 10:31) Hives ENVIRONMENTAL Allergy (Severe, Uncoded 10/31/22 10:31) Rash Medication List - Last Reconciled 11/26/22 by [facility] atorvastatin 20 mg PO DAILY 30 days cholecalciferol (vitamin D3) (Vitamin D3) cyclobenzaprine 5 mg PO TID PRN 7 days diazepam 5 mg PO BID epinephrine 0.3 mg IM esomeprazole magnesium 40 mg PO DAILY ipratropium-albuterol 0.5 mg-3 mg(2.5 mg base)/3 mL mL inhalation ipratropium-albuterol 0.5 mg-3 mg(2.5 mg base)/3 mL 3 mL inhalation BID 30 days levalbuterol tartrate 45 mcg/actuation inhalation levocetirizine 5 mg PO DIRECTED lisinopril 2.5 mg PO DAILY Magic Mouthwash Diphen/Lido/Antacid 1:1:1 10 mL PO QID multivitamin with folic acid 400 mcg (Daily-Ashley (with folic acid)) 1 tab PO DAILY nebulizers As directed oxycodone mg oxycodone ER 20 mg PO Q12H HPI follow up per patient after testing HPI Details Jv is a 57-year-old male with past medical history of prior smoking, emphysema, cervical disc disease with prior surgery, esophageal stricture status post balloon dilation, atypical chest discomfort, anomalous left circumflex coronary artery presents for follow-up with concern for abnormal EKG. Today he reports that he had an EKG done in his primary care doctor's office and it came out abnormal. He then went to Urgent Care and had another EKG which showed improvement in those findings. He denies having any exertional chest discomfort. At times he will feel different sensations in the chest related to his esophageal issues, spasm. He does have some shortness of breath at times related to emphysema and history of smoking. He follows with pulmonology. No palpitations, dizziness, presyncope, syncope, PND, orthopnea or edema. He reports good activity tolerance overall. 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 Takes meds as directed. [facility] Medical History Anxiety Asthma Asthma-COPD overlap syndrome Back pain Chronic pain COPD (chronic obstructive pulmonary disease) Dysphagia GERD (gastroesophageal reflux disease) High cholesterol History of colitis History of esophageal spasm History of IBS Hx of allergic rhinitis Hx of chest pain Hx of goiter Hx of multiple pulmonary nodules Hx of renal calculi Hypertension Hypoglycemia KATHLEEN on CPAP Osteoarthritis of both hips Panic attacks PTSD (post-traumatic stress disorder) Pulmonary nodules Shortness of breath Surgical History H/O neck surgery History of nasal surgery Hx of cervical discectomy Hx of colonoscopy Hx of endoscopy Hx of esophagogastroduodenoscopy Hx of left inguinal hernia repair Hx of tonsillectomy Hx of transurethral resection of prostate Family History Father No problems noted. Mother No problems noted. Social History Household Members: Other Household Members Other:: Mother Alcohol intake: never Patient Tobacco Use Status: Former Tobacco user Tobacco use type: Cigarette Years Smoked: 30 Second Hand Smoke Exposure: No Current occupational status: unemployed Review of Systems Const All systems reviewed & are unremarkable except as noted in HPI and below ENT Denies dizziness Card Details: Discomfort in chest at times which he relates to esophageal issues Denies chest pain, Denies chest pain at rest, Denies chest pain with activity, Denies rapid heart rate, Denies pedal edema, Denies edema, Denies leg edema, Denies lightheadedness, Denies palpitations, Denies dyspnea, Denies dyspnea on exertion and Denies orthopnea Resp Denies cough, Denies dyspnea and Denies dyspnea on exertion GI Denies hematochezia and Denies change in stool character Musc Denies abnormal gait, Denies limited range of motion, Denies muscle cramps, Denies muscle weakness, Denies numbness, Denies radiating pain into limb, Denies stiffness and Denies tingling Neuro Denies abnormal gait, Denies dizziness, Denies numbness and Denies tingling Endo Denies palpitations Physical Exam Vital Signs: Last Vital Signs Pulse 63 11/26/22 08:31 BP 120/82 11/26/22 08:31 BMI result Body Mass Index 29.4 Const General: cooperative, healthy appearing, comfortable and no acute distress Orientation/consciousness: patient oriented x3 Neck Neck: Yes normal visual inspection and Yes no JVD Carotids: normal carotid upstroke Resp Effort & Inspection: normal respiratory effort Auscultation: clear to auscultation bilaterally, no crackles, no rales, no rhonchi and no wheezes Cardio Jugular venous distension: no JVD Rate: regular rate Rhythm: regular rhythm Heart sounds: S1 normal heart sound present, S2 normal heart sound present, no gallops, no murmurs and no rubs Neuro General: patient oriented x3 Extrem General: Yes normal to inspection, No no pedal edema and No calf tenderness Psych Appearance: grossly normal Mental Status: mental status grossly normal Speech and movement: Normal speech and movement present Assessment & Plan Assessment & Plan (1) Abnormal EKG: Code(s): R94.31 - Abnormal electrocardiogram [ECG] [EKG] Plan: EKG done on 11/18/2022 at PCP office showing T-wave inversions V1 through V 3. Asymptomatic at that time. Patient then went to urgent care for evaluation and had EKG repeated with nonspecific T-wave abnormality V2 and V3, overall appearance is improved from prior EKG. He has some mild shortness of breath at times with activity which he relates to his prior smoking. He has atypical sounding discomfort in the chest region with history esophageal stricture requiring dilation, and swallowing difficulties. Reviewed prior EKGs in compared to EKG from 11/18. The T-wave inversions seen on his PCP office EKG appear different from prior EKGs. He does have history of having CTA of the coronary artery in the past which showed an anomalous left circumflex artery which was benign. Will work on obtaining that results for our system. He had a stress echocardiogram in 2019 which showed no echo or EKG evidence of ischemia. At this point with the mild EKG change will order an exercise stress test to evaluate for any ischemic findings. Signs and symptoms of angina reviewed with him. Plan to call him with test results. Cardiology follow-up 1 year, sooner if need or stress test warrants. (2) Hx of chest pain: Comment: Sees Dr Esparza Code(s): Z87.898 - Personal history of other specified conditions Plan: As above (3) KATHLEEN on CPAP: Code(s): G47.33 - Obstructive sleep apnea (adult) (pediatric); Z99.89 - Dependence on other enabling machines and devices (4) Hypertension: Code(s): I10 - Essential (primary) hypertension Qualifiers: Hypertension type: essential hypertension Qualified Code(s): I10 - Essential (primary) hypertension Plan: Well controlled at present time. No medication changes made (5) High cholesterol: Code(s): E78.00 - Pure hypercholesterolemia, unspecified Plan: [place] LDL goal less than 70 in patient with coronary calcifications seen on CT. No recent lipid profile in our system. Labs followed by PCP at [place]. He continues on atorvastatin 20 mg daily Orders: Orders CA stress test Today R94.31 - Abnormal electrocardiogram [ECG] [EKG], Z87.898 - Personal history of other specified conditions Coding Level of Care Code Est Pt Level 4 (79739) Diagnoses Abnormal EKG R94.31 Hx of chest pain Z87.898 KATHLEEN on CPAP G47.33; Z99.89 Hypertension I10 Hypertension type: essential hypertension High cholesterol E78.00 Time Spent (min) 26 Comment Chart review, documentation, interview, assessment
== END 2022-11-26 09:08 | disposition home or self-care (01) ==
PROVIDERS: PCP Internal Medicine; Referring Provider Internal Medicine; Visit Provider Nurse Practitioner Family
DX: R94.31 Abnormal electrocardiogram [ECG] [EKG] (principal); Z87.898 Personal history of other specified conditions; G47.33 Obstructive sleep apnea (adult) (pediatric); Z99.89 Dependence on other enabling machines and devices; I10 Essential (primary) hypertension; E78.00 Pure hypercholesterolemia, unspecified
CPT/HCPCS: 99214

== ENCOUNTER → 2022-11-26 08:28 | Outpatient (BNVA) | payer MEDICARE, MEDICAID, SELFPAY | PROVIDERS: PCP Internal Medicine; Referring Provider Internal Medicine; Visit Provider Nurse Practitioner Family | DX: R94.31 Abnormal electrocardiogram [ECG] [EKG] (principal); G47.33 Obstructive sleep apnea (adult) (pediatric); I10 Essential (primary) hypertension; E78.00 Pure hypercholesterolemia, unspecified; Z79.899 Other long term (current) drug therapy; Z99.89 Dependence on other enabling machines and devices | CPT/HCPCS: 99212 ==

== ENCOUNTER → 2022-12-02 08:23 | Outpatient (REF) | payer MEDICARE, MEDICAID, SELFPAY ==
--- NOTE | 2022-12-02 08:25 | CA_ITS ---
Acquisition Time: 2022-12-02 08:33:43 Total Exercise Time: 00:06:37 Test Indications: ABN EKG Medications: SEE H Protocol: DEVONTE Max HR: 151 BPM 91% of Pred: 165 BPM Max BP: 172/088 mmHG Max Work Load: 7.9 METS Exercise stress test exercise 6 min 37 sec of Devonte protocol achieving 90% MPHR, with mild SOB, without chest discomfort, with isolated PVC, with normotensive response to exercise, without EKG changes for ischemia. Test reviewed with Dr. Chiu. Referred By: Shaye Castro Overread By: CARRILLO CHIU
== END ==
LOC: HO.CARD 08:23
PROVIDERS: Visit Provider Nurse Practitioner Family
DX: R94.31 Abnormal electrocardiogram [ECG] [EKG] (principal); Z87.898 Personal history of other specified conditions
CPT/HCPCS: 93017

== ENCOUNTER → 2022-12-02 08:25 | Outpatient (BNV) | payer MEDICARE, MEDICAID, SELFPAY | PROVIDERS: Visit Provider Internal Medicine | DX: R06.02 Shortness of breath (principal); R94.31 Abnormal electrocardiogram [ECG] [EKG] | CPT/HCPCS: 93016; 93018 ==

== ENCOUNTER 2022-12-18 10:53 | Outpatient (AMB) | payer MEDICARE, MEDICAID, SELFPAY ==
--- NOTE | 2022-12-18 11:48 | MHC.OFFVIS ---
Intake Intake Visit Reasons: 1Y PSA(set) Apr 2022 Intake Note: Patient is Present for Telephone Follow Up PSA Urology Medication: None Antibiotic Allergies: Clindamycin, Blood Thinners: None Pharmacy: [facility] Allergies metronidazole [From FLAGYL] Allergy (Severe, Verified 12/18/22 11:49) RASH tree and shrub pollen [TREE] Allergy (Severe, Verified 12/18/22 11:49) Rash dexamethasone Adverse Reaction (Severe, Verified 12/18/22 11:49) palpitatiions fluticasone furoate [Breo Ellipta] Adverse Reaction (Severe, Verified 12/18/22 11:49) palpitations, high BP umeclidinium [Incruse Ellipta] Adverse Reaction (Severe, Verified 12/18/22 11:49) palpitations Bee sting Allergy (Severe, Uncoded 12/18/22 11:49) Hives/Difficulty breathing Clindamycin HCl Allergy (Severe, Uncoded 12/18/22 11:49) Hives ENVIRONMENTAL Allergy (Severe, Uncoded 12/18/22 11:49) Rash Medication List - Last Reconciled 12/18/22 by Liborio Nguyễn MD atorvastatin 20 mg PO DAILY 30 days cholecalciferol (vitamin D3) (Vitamin D3) cyclobenzaprine 5 mg PO TID PRN 7 days diazepam 5 mg PO BID epinephrine 0.3 mg IM esomeprazole magnesium 40 mg PO DAILY ipratropium-albuterol 0.5 mg-3 mg(2.5 mg base)/3 mL mL inhalation ipratropium-albuterol 0.5 mg-3 mg(2.5 mg base)/3 mL 3 mL inhalation BID 30 days levalbuterol tartrate 45 mcg/actuation inhalation levocetirizine 5 mg PO DIRECTED lisinopril 2.5 mg PO DAILY Magic Mouthwash Diphen/Lido/Antacid 1:1:1 10 mL PO QID multivitamin with folic acid 400 mcg (Daily-Ashley (with folic acid)) 1 tab PO DAILY nebulizers As directed oxybutynin chloride ER 5 mg PO DAILY 30 days oxycodone mg oxycodone ER 20 mg PO Q12H HPI HPI Comments History of Present Illness Details Jv VELASQUEZ is a very pleasant male. They are a patient of Dr Troy. He is seen for the following urologic conditions - overactive bladder - nephrolithiasis - renal cyst Telemedicine evaluation 15 minute consultation Doximity bishnu Video attempted Stable with urination Concern for recurrence of nephrolithiasis Like imaging Ultrasound to be organized Nephrolithiasis/Urolithiasis: They are here for further evaluation of nephrolithiasis. Prior imaging includes 04/12 a renal ultrasound, 2.5 cm right Bosniak 1 cyst no stones 12/11 , a renal ultrasound, showing no evidence of stones, cyst stable - 05/14 renal ultrasound to 2.5 cm cyst on the right - 10/12 renal ultrasound 2.5cm cyst on right Current therapeutic plan will be to continue with imaging surveillance. Lower Urinary Tract Symptoms: Current visit is for Improved flow after TUIP. Did respond to myrbetriq - not covered Prior treatments include 05/13 TUIP. Prostate Symptom Score 12/09 , Mild (0-8), Bother 2. Symptoms include 11/08 incomplete emptying, weak stream, and are progressing 12/09 , weak stream, and are stable. Prior Prostate Score mild. Testing at next visit will include bladder scan. Treatment plan continue with current medications [facility] Medical History Anxiety Asthma Asthma-COPD overlap syndrome Back pain Chronic pain COPD (chronic obstructive pulmonary disease) Dysphagia GERD (gastroesophageal reflux disease) High cholesterol History of colitis History of esophageal spasm History of IBS Hx of allergic rhinitis Hx of chest pain Hx of goiter Hx of multiple pulmonary nodules Hx of renal calculi Hypertension Hypoglycemia KATHLEEN on CPAP Osteoarthritis of both hips Panic attacks PTSD (post-traumatic stress disorder) Pulmonary nodules Shortness of breath Surgical History H/O neck surgery History of nasal surgery Hx of cervical discectomy Hx of colonoscopy Hx of endoscopy Hx of esophagogastroduodenoscopy Hx of left inguinal hernia repair Hx of tonsillectomy Hx of transurethral resection of prostate Family History Father No problems noted. Mother No problems noted. Social History Household Members: Other Household Members Other:: Mother Alcohol intake: never Patient Tobacco Use Status: Former Tobacco user Tobacco use type: Cigarette Years Smoked: 30 Second Hand Smoke Exposure: No Current occupational status: unemployed Review of Systems Const All systems reviewed & are unremarkable except as noted in HPI and below Reports no additional complaints Resp Reports no additional complaints GI Reports no additional complaints Reports as per HPI Musc Reports no additional complaints Physical Exam Telemedicine evaluation Appropriate responses Regular breathing rate and rhythm HEENT Head: Yes normal to inspection Ears: hearing grossly normal bilaterally Eyes General: appearance normal, both eyes and all related structures Neck Neck: Yes normal visual inspection Chest Chest palpation & inspection: normal inspection of the chest Resp Effort & Inspection: normal respiratory effort and able to speak in complete sentences Assessment & Plan Assessment & Plan (1) Nephrolithiasis: Code(s): N20.0 - Calculus of kidney (2) Bladder outlet obstruction: Code(s): N32.0 - Bladder-neck obstruction Plan Renal ultrasound follow-up Orders: Orders US renal BI 12/18/22 N20.0 - Calculus of kidney Medications: New oxybutynin chloride ER 5 mg PO DAILY 30 days 30 tabs 0RF N32.89 - Other specified disorders of bladder Patient Instructions: Imaging studies, laboratory and physical exam results were discussed and reviewed in detail. No major barriers to patient understanding were identified. An opportunity to ask questions regarding the treatment plan was provided. All questions were answered. The patient expressed understanding and agreement with the above treatment plan. The patient is aware they should contact our office by phone for worsening of their current condition or the appearance of new urologic symptoms. Compliance is encouraged with any medications and followup testing that is ordered. It is a privilege to participate in the urologic care of your patient. If you have any questions or concerns regarding treatment for the above conditions, or other urologic issues, please do not hesitate to contact me. The office telephone contact is [phone]. This note is constructed using voice recognition software. While every effort has been made to ensure accuracy rug hooker hand errors may have been included. Yours sincerely, Dr Liborio Nguyễn MD, [facility] - Urology Providers of Expert, Compassionate Care for the Genitourinary System Telehealth Telehealth Location of provider rendering services: practice address Location of patient: address on file Patient Identification confirmed using: Name, : Yes Telehealth method: video Patient verbally consented to treatment: Yes Patient verbally consented to billing insurance company: Yes Patient informed of any privacy concerns related to visit: Yes Coding Level of Care Code Tele Est Pt Level 3 (11441) Diagnoses Nephrolithiasis N20.0 Bladder outlet obstruction N32.0
== END 2022-12-18 13:55 | disposition home or self-care (01) ==
PROVIDERS: PCP Internal Medicine; Visit Provider Urology
DX: N20.0 Calculus of kidney (principal); N32.0 Bladder-neck obstruction
CPT/HCPCS: 99213

== ENCOUNTER → 2022-12-18 10:53 | Outpatient (BNVA) | payer MEDICARE, MEDICAID, SELFPAY | PROVIDERS: Visit Provider Urology ==

== ENCOUNTER 2022-12-19 06:27 | Day surgery (SDC) | payer MEDICARE, MEDICAID, SELFPAY ==
[2022-12-17 11:51] VITALS: BMI 29.4
--- NOTE | 2022-12-18 10:32 | HO.ANESPROP2 ---
Documented by User: Sharmila Rivera NP 12/18/22 10:56 HPI - Anesthesia Eval Consult details Narrative: 57yo M for Upper Endoscopy with Balloon Dilitation Cardiac optimized. Follows [facility] [place]m. Last visit 10/2022 for asthma-copd stable s/p EGD 04/2022 with [facility] PMF[facility] Active Problems Active Problems: All Active Problems (Updated 11/26/22 @ 10:38 by Shaye Castro, GISELA-C) Abnormal EKG (Acute) Tubular adenoma (Acute) Lower abdominal pain (Acute) Neuropathy (Acute) Bladder outlet obstruction (Acute) Renal cyst (Acute) Flank pain (Acute) Chest pain (Acute) Cervical radiculopathy (Acute) Pre-op evaluation (Acute) Esophageal stricture (Acute) Urgency of micturition (Acute) Palpitation (Acute) Bladder spasm (Acute) Dysphagia (Acute) Nonalcoholic steatohepatitis (DELUNA) (Acute) Hx of chest pain (Acute) KATHLEEN on CPAP (Acute) High cholesterol (Acute) Hypertension (Acute) Shortness of breath (Acute) Hypoglycemia (Acute) Asthma-COPD overlap syndrome (Acute) Pulmonary nodules (Acute) GERD (gastroesophageal reflux disease) (Acute) COPD (chronic obstructive pulmonary disease) (Acute) Anxiety (Acute) Past Medical History Medical History Anxiety Asthma Asthma-COPD overlap syndrome Back pain Chronic pain COPD (chronic obstructive pulmonary disease) Dysphagia GERD (gastroesophageal reflux disease) High cholesterol History of colitis History of esophageal spasm History of IBS Hx of allergic rhinitis Hx of chest pain Hx of goiter Hx of multiple pulmonary nodules Hx of renal calculi Hypertension Hypoglycemia KATHLEEN on CPAP Osteoarthritis of both hips Panic attacks PTSD (post-traumatic stress disorder) Pulmonary nodules Shortness of breath Family History Family History Father No problems noted. Mother No problems noted. Family history of problems with anesthesia: Yes (PONV) Surgical History Surgical History H/O neck surgery History of nasal surgery Hx of cervical discectomy Hx of colonoscopy Hx of endoscopy Hx of esophagogastroduodenoscopy Hx of left inguinal hernia repair Hx of tonsillectomy Hx of transurethral resection of prostate History of Problems with Anesthesia: No Social History Social History Household Members: Other Household Members Other:: Mother Alcohol intake: never Patient Tobacco Use Status: Former Tobacco user Tobacco use type: Cigarette Years Smoked: 30 Second Hand Smoke Exposure: No Are you DNR?: No Advance Directives: No Advance Directives Information Provided: Yes Nutrition Risks: No Nutritional Risk Current occupational status: unemployed Meds Allergies Allergy/AdvReac Type Severity Reaction Status Date / Time metronidazole [From FLAGYL] Allergy Severe RASH Verified 12/18/22 11:49 tree and shrub pollen [TREE] Allergy Severe Rash Verified 12/18/22 11:49 dexamethasone AdvReac Severe palpitatiio Verified 12/18/22 11:49 ns fluticasone furoate AdvReac Severe palpitations, Verified 12/18/22 11:49 [Breo Ellipta] high BP umeclidinium AdvReac Severe palpitation Verified 12/18/22 11:49 [Incruse Ellipta] s Bee sting Allergy Severe Hives/Difficulty Uncoded 12/18/22 11:49 breathing Clindamycin HCl Allergy Severe Hives Uncoded 12/18/22 11:49 ENVIRONMENTAL Allergy Severe Rash Uncoded 12/18/22 11:49 Home Medications Medication Instructions Recorded Confirmed Last Taken Type levocetirizine 5 mg tablet 5 mg PO DIRECTED 12/23/19 12/19/22 Unknown History cholecalciferol (vitamin D3) 50 05/09/22 12/18/22 Unknown History mcg (2,000 unit) capsule (Vitamin D3) ipratropium 0.5 mg-albuterol 3 mg ml inhalation 05/09/22 12/18/22 Unknown History (2.5 mg base)/3 mL nebulization soln levalbuterol tartrate 45 inhalation 05/09/22 12/18/22 Unknown History mcg/actuation aerosol inhaler oxycodone 20 mg tablet mg 05/09/22 12/18/22 12/18/22 History nebulizers 10/31/22 12/18/22 Unknown History diazepam 5 mg tablet 5 mg PO BID 11/26/22 12/19/22 Unknown History epinephrine 0.3 mg/0.3 mL 0.3 mg IM anaphylaxis 11/26/22 12/18/22 Unknown History injection, auto-injector lisinopril 2.5 mg tablet 2.5 mg PO DAILY 11/26/22 12/19/22 Unknown History multivitamin with folic acid 400 1 tab PO DAILY 11/26/22 12/19/22 Unknown History mcg tablet (Daily-Ashley (with folic acid)) oxycodone 20 mg tablet,crush 20 mg PO Q12H 12/19/22 12/19/22 12/19/22 History resistant,extended release 12 hr (OxyContin) pantoprazole 40 mg 12/19/22 12/19/22 History Exam Exam Date and Time: December 18, 2022 1032 Height,Weight and Vital Signs: Height 5 ft 8 in Weight 87.798 kg Pertinent Lab Results Pertinent Lab Results: Laboratory Tests 10/29/22 11:27 WBC 7.9 Hgb 14.2 Hct 44.2 Plt Count 251 Sodium 142 Potassium 4.4 Chloride 106 Carbon Dioxide 28 BUN 11 Creatinine 0.85 Narrative Narrative: EKG 10/2022 Vent. Rate : 055 BPM Atrial Rate : 055 BPM P-R Int : 168 ms QRS Dur : 086 ms QT Int : 430 ms P-R-T Axes : 044 001 022 degrees QTc Int : 411 ms Sinus bradycardia Otherwise normal ECG When compared with ECG of 18-JAN-2021 12:29, No significant change was found Exercise Stress 11/2022 Protocol: JAVIER Max HR: 151 BPM 91% of Pred: 165 BPM Max BP: 172/088 mmHG Max Work Load: 7.9 METS Exercise stress test exercise 6 min 37 sec of Javier protocol achieving 90% MPHR, with mild SOB, without chest discomfort, with isolated PVC, with normotensive response to exercise, without EKG changes for ischemia. Test reviewed with Dr. Esparza. Assessment and Plan Assessment Anesthesia Assessment: Chart Reviewed Final Anesthetic Review Family History of Problems with Anesthesia: Yes (PONV) History of Problems with Anesthesia: No Documented by User: Marcus Martinez MD 12/19/22 07:39 PMFSH Past Medical History Medical History Anxiety Asthma Asthma-COPD overlap syndrome Back pain Chronic pain COPD (chronic obstructive pulmonary disease) Dysphagia GERD (gastroesophageal reflux disease) High cholesterol History of colitis History of esophageal spasm History of IBS Hx of allergic rhinitis Hx of chest pain Hx of goiter Hx of multiple pulmonary nodules Hx of renal calculi Hypertension Hypoglycemia KATHLEEN on CPAP Osteoarthritis of both hips Panic attacks PTSD (post-traumatic stress disorder) Pulmonary nodules Shortness of breath Family History Family History Father No problems noted. Mother No problems noted. Surgical History Surgical History H/O neck surgery History of nasal surgery Hx of cervical discectomy Hx of colonoscopy Hx of endoscopy Hx of esophagogastroduodenoscopy Hx of left inguinal hernia repair Hx of tonsillectomy Hx of transurethral resection of prostate Social History Social History Household Members: Other Household Members Other:: Mother Alcohol intake: never Patient Tobacco Use Status: Former Tobacco user Tobacco use type: Cigarette Years Smoked: 30 Second Hand Smoke Exposure: No Are you DNR?: No Advance Directives: No Advance Directives Information Provided: Yes Nutrition Risks: No Nutritional Risk Current occupational status: unemployed Meds Allergies Allergy/AdvReac Type Severity Reaction Status Date / Time metronidazole [From FLAGYL] Allergy Severe RASH Verified 12/18/22 11:49 tree and shrub pollen [TREE] Allergy Severe Rash Verified 12/18/22 11:49 dexamethasone AdvReac Severe palpitatiio Verified 12/18/22 11:49 ns fluticasone furoate AdvReac Severe palpitations, Verified 12/18/22 11:49 [Breo Ellipta] high BP umeclidinium AdvReac Severe palpitation Verified 12/18/22 11:49 [Incruse Ellipta] s Bee sting Allergy Severe Hives/Difficulty Uncoded 12/18/22 11:49 breathing Clindamycin HCl Allergy Severe Hives Uncoded 12/18/22 11:49 ENVIRONMENTAL Allergy Severe Rash Uncoded 12/18/22 11:49 Home Medications Medication Instructions Recorded Confirmed Last Taken Type levocetirizine 5 mg tablet 5 mg PO DIRECTED 12/23/19 12/19/22 Unknown History cholecalciferol (vitamin D3) 50 05/09/22 12/18/22 Unknown History mcg (2,000 unit) capsule (Vitamin D3) ipratropium 0.5 mg-albuterol 3 mg ml inhalation 05/09/22 12/18/22 Unknown History (2.5 mg base)/3 mL nebulization soln levalbuterol tartrate 45 inhalation 05/09/22 12/18/22 Unknown History mcg/actuation aerosol inhaler oxycodone 20 mg tablet mg 05/09/22 12/18/22 12/18/22 History nebulizers 10/31/22 12/18/22 Unknown History diazepam 5 mg tablet 5 mg PO BID 11/26/22 12/19/22 Unknown History epinephrine 0.3 mg/0.3 mL 0.3 mg IM anaphylaxis 11/26/22 12/18/22 Unknown History injection, auto-injector lisinopril 2.5 mg tablet 2.5 mg PO DAILY 11/26/22 12/19/22 Unknown History multivitamin with folic acid 400 1 tab PO DAILY 11/26/22 12/19/22 Unknown History mcg tablet (Daily-Ashley (with folic acid)) oxycodone 20 mg tablet,crush 20 mg PO Q12H 12/19/22 12/19/22 12/19/22 History resistant,extended release 12 hr (OxyContin) pantoprazole 40 mg 12/19/22 12/19/22 History Exam Airway Mallampati Class: II TM Dist: >3cm Neck ROM: Full Denture: Lower Heart: ok. Lungs: ok Assessment and Plan Assessment Anesthesia Assessment: Anesthesia Plan Discussed Final Anesthetic Review NPO: Yes ASA Class: III Final Preanesthetic Review: No Changes in Pt Med Stat, Meds/Allgs Chart Reviewed, Consent Obtained/Reviewed and Anes Risks/Benef Reviewed Patient Risk: Intermediate Procedure Risk: Intermediate Anesthetic Plan Anesthetic Plan: MAC: and Agree w/ Assess. and Plan Disposition: Standard PACU
--- NOTE | 2022-12-19 06:38 | MHC.SHP ---
Pre-Procedural Eval Section A Date of Service: 12/19/22 Section B Chief Complaint: dysphagia Relevant Family History (Specify if Yes): No Relevant Social History: None Present Medications: see Short Stay Collaborative assessment Medical History: Significant History (Anxiety Asthma Asthma-COPD overlap syndrome Back pain Chronic pain COPD (chronic obstructive pulmonary disease) Dysphagia GERD (gastroesophageal reflux disease) High cholesterol History of colitis History of esophageal spasm History of IBS Hx of allergic rhinitis Hx of chest pain Hx of goiter Hx of ) History of Previous Operations: Relevant previous surgery/procedure and date(s) (H/O neck surgery History of nasal surgery Hx of cervical discectomy Hx of colonoscopy Hx of endoscopy Hx of esophagogastroduodenoscopy Hx of left inguinal hernia repair Hx of tonsillectomy Hx of transurethral resection of prostate) Allergies: Allergies Allergy/AdvReac Type Severity Reaction Status Date / Time metronidazole [From FLAGYL] Allergy Severe RASH Verified 12/18/22 11:49 tree and shrub pollen [TREE] Allergy Severe Rash Verified 12/18/22 11:49 dexamethasone AdvReac Severe palpitatiio Verified 12/18/22 11:49 ns fluticasone furoate AdvReac Severe palpitations, Verified 12/18/22 11:49 [Breo Ellipta] high BP umeclidinium AdvReac Severe palpitation Verified 12/18/22 11:49 [Incruse Ellipta] s Bee sting Allergy Severe Hives/Difficulty Uncoded 12/18/22 11:49 breathing Clindamycin HCl Allergy Severe Hives Uncoded 12/18/22 11:49 ENVIRONMENTAL Allergy Severe Rash Uncoded 12/18/22 11:49 Review of Systems Sugical H&P ROS: Negative: Constitution, Cardiovascular, Respiratory, Neurological, Psychiatric, Hem-Onc, Allergic/Immunologic, Gastrointestinal, Genitourinary, Musculoskeletal, Integumentary, Endocrine and Eyes/Ears/Nose/Throat Exam Surgical H&P Exam: Normal: HEENT, Normal: Heart, Normal: Lungs, Normal: Extremities, Normal: Abdomen, Normal: Skin and Normal: Neurological Plan Diagnosis/Plan: Unchanged I have reviewed the history and physical and performed a pertinent physical examination on my patient. No changes have occurred unless specified. Time Spent With Patient Time: Total time managing care of this patient today ____ minutes.
[2022-12-19] MEDS: Lactated Ringers 1,000 ML 100 ML IVCONT (06:48)
[2022-12-19 06:54] VITALS: BP 152/73; PULSE 62; RESP 18; TEMP 36.6; O2SAT 97
--- NOTE | 2022-12-19 07:44 | P.OP_ITS ---
Operative Note Operative Note Date of Service: 12/19/22 Narrative: Procedure Description: EGD Indication: dysphagia Anesthesia: MAC FLEXIBLE TRANSORAL UPPER GASTROINTESTINAL ENDOSCOPY UPPER ENDOSCOPY Consent: Indications for the procedure and potential complications of bleeding, perforation, reaction to medications and missed diagnosis were discussed with the patient and informed consent was obtained. Instrument: Olympus GIF H 190 J mid size upper endoscope Monitoring: Vital signs and clinical assessment, continuous EKG monitoring, Pulse oximetry, Carbon Dioxide monitoring and blood pressure monitoring were done throughout the procedure. Procedure: The patient was placed in the left lateral decubitis position and pre-procedure medications were administered and a bite block was placed. The endoscope was inserted into the mouth and advanced under direct vision to the third part of duodenum. A careful inspection was made as the upper endoscope was withdrawn including a retroflexed examination of the proximal stomach; Findings and interventions are described below. Findings: Larynx:normal Esophagus: GE junction at 40 cm, diaphragm hiatus at 40 cm, patchy white spots suspicious for sourav noted thru out the esophagus, slightly tight GEJ, dilated with 12-15 mm balloon in step wade fashion no tear seen. UES also dilated to 12- 15 mm in step wade fashion. There was erythema at the GEJ. Stomach: Normal mucosa. Grade 2 flap valve on retroflexed examination of the cardia. Partial wrap from prior fundoplication noted Duodenum: Normal bulb and descending duodenum, Intervention: Balloon dilation and biopsies Impression/Findings: esophagitis sourav PLAN: repeat EGD with dilation prn trial of fluconazole for 3 weeks make sure taking PPI
[2022-12-19 08:08] VITALS: BP 134/81; PULSE 73; RESP 18; TEMP 37.2; O2SAT 94
[2022-12-19 08:23] VITALS: BP 105/64; PULSE 61; RESP 20; TEMP 37; O2SAT 98
== END 2022-12-19 08:57 | disposition home or self-care (01) ==
PROVIDERS: PCP Internal Medicine; Visit Provider Internal Medicine Gastroenterology
PROC: (CPT 43249; principal; 2022-12-19 07:30)
DX: R13.10 Dysphagia, unspecified (principal); K21.9 Gastro-esophageal reflux disease without esophagitis; K20.80 Other esophagitis without bleeding; B37.9 Candidiasis, unspecified; K75.81 Nonalcoholic steatohepatitis (NASH); K44.9 Diaphragmatic hernia without obstruction or gangrene; I10 Essential (primary) hypertension; E78.00 Pure hypercholesterolemia, unspecified; R91.8 Other nonspecific abnormal finding of lung field; J44.9 Chronic obstructive pulmonary disease, unspecified; F41.1 Generalized anxiety disorder; G89.29 Other chronic pain; M54.9 Dorsalgia, unspecified; G47.33 Obstructive sleep apnea (adult) (pediatric); Z79.899 Other long term (current) drug therapy; Z88.8 Allergy status to other drugs, medicaments and biological substances; Z98.890 Other specified postprocedural states; Z87.891 Personal history of nicotine dependence
CPT/HCPCS: 43249; 43239; 88305; 88312; C1726; J3010

== ENCOUNTER → 2022-12-19 06:27 | Outpatient (BNV) | payer MEDICARE, MEDICAID, SELFPAY | PROVIDERS: PCP Internal Medicine; Visit Provider Internal Medicine Gastroenterology | DX: R13.10 Dysphagia, unspecified (principal); K20.90 Esophagitis, unspecified without bleeding; B37.81 Candidal esophagitis | CPT/HCPCS: 43239; 43249 ==

== ENCOUNTER 2022-12-27 11:10 | Outpatient (AMB) | payer MEDICARE, MEDICAID, SELFPAY ==
--- NOTE | 2022-12-27 11:21 | MHC.OFFVIS ---
Intake Vital Signs 12/27/22 11:22 Height 5 ft 8 in Weight 194 lb 0.108 oz BMI 29.5 BP 134/78 Blood Pressure Location Lt brachial Position Sitting Pulse 54 Intake Visit Reasons: s/p egd Intake Note: Jv presents in the office as a follow up EGD. CC: he has nausea and discomfort in his stomach. His throat has been a little sore - he said not because of the EGD. Specialty Trimmer Required: No Allergies metronidazole [From FLAGYL] Allergy (Severe, Verified 12/27/22 11:27) RASH tree and shrub pollen [TREE] Allergy (Severe, Verified 12/27/22 11:27) Rash dexamethasone Adverse Reaction (Severe, Verified 12/27/22 11:27) palpitatiions fluticasone furoate [Breo Ellipta] Adverse Reaction (Severe, Verified 12/27/22 11:27) palpitations, high BP umeclidinium [Incruse Ellipta] Adverse Reaction (Severe, Verified 12/27/22 11:27) palpitations Bee sting Allergy (Severe, Uncoded 12/27/22 11:27) Hives/Difficulty breathing Clindamycin HCl Allergy (Severe, Uncoded 12/27/22 11:27) Hives ENVIRONMENTAL Allergy (Severe, Uncoded 12/27/22 11:27) Rash HPI s/p egd HPI Details 57 yr old m here for f/u RECAP: ? HE had a esophageal dilation with 16 mm bougie, tear distal and proximal ? he had chest pain and discomfort and went to ED< cxr normal and he was given sucralfate and pepcid ? now feeling amanda ? still some discomfort when drinking water, not so bad with other types of foods ? breathing is good ? stool is normal, no blood, no melena ? he had c/o suprapubic pain and urine hesitancy sent to urology and he had TURP done ? he had further EGD with dilation balloon at [facility] and LEs with small tears noted--done 05/2019 ? he restarted dexilant after last apptm EGD repeated with 16 mm bougie with small tear f/u EGD 06/2020--dilated with bougie with small proximal tear he was waiting for cervical spine plate removal which was done but did not alter his swallowing issues he also has DELUNA-- mild ALt elevation US- 04/2020-- fatty liver, renal cyst Eventually referred for manometry and high IRP with concern for pre achalasia He saw Olga nielsen and plan was for heller myotomy, he had repeat Ba swallow 01/2021 with narrowing at GEJ with holdup of tablet, some dysmotility noted He eventually had the myotomy and a fundoplication Ba swallow 11/2021--- no stricture, fundoplication noted, pill went down ok He had Ba swallow- at [facility] with mild narrowing GEJ, fundoplication noted , no obstruction or laryngeal penetration HE had EGD and colonoscopy 05/16 with adenomatous polyps removed and dilation of GEJ which was tight from his fundoplication EGD: 12/19/22 Impression/Findings: esophagitis sourav balloon dilation to 15 mm INTERIM: He has been taking itrazoconazole, feeling a little better since holding on statin due to interactions no choking no chest pain asthma is controlled trying to lose weight as before, struggling a little EXAM: GENERAL: The patient is well developed and nontoxic. VITAL SIGNS:see workflow HEENT: Nonicteric sclerae, PERRLA, EOMI. Oropharynx clear. Moist mucous membranes. Conjunctivae appear well perfused. No thyroid mass. CHEST: Chest wall is nontender. HEART: Regular rate and rhythm without murmurs. LUNGS: Clear to auscultation bilaterally. ABDOMEN: Soft, positive bowel sounds, nontender, no organomegaly. lap scars healing on abdomen SKIN: No rash, no excessive bruising, petechiae, or purpura. NEUROLOGIC: Cranial nerves II-XII intact without motor/sensory deficit. Assessment & Plan 1/ dysphagia-- better after dilation, went up to 15 mm 2/ GERd, good control with PPI and after fundoplication 3/ DELUNA-mild 4/ tubular adenomas 5/ sourav infection, uncertain etiology, low risk for HIV PLAN: 1/ cont with PPI 2/ EGD with repeat balloon dilation in few months 3/ he is also due another colonoscopy in 3 yrs 4/ can consider ozempic after next EGD ? [facility] Medical History Shortness of breath Hypoglycemia Asthma-COPD overlap syndrome Pulmonary nodules COPD (chronic obstructive pulmonary disease) Hx of renal calculi Asthma Hx of allergic rhinitis History of esophageal spasm Hx of chest pain Back pain Osteoarthritis of both hips Hx of goiter History of IBS History of colitis Chronic pain High cholesterol KATHLEEN on CPAP Hx of multiple pulmonary nodules Hypertension PTSD (post-traumatic stress disorder) Panic attacks Dysphagia GERD (gastroesophageal reflux disease) Anxiety Surgical History H/O neck surgery Hx of endoscopy Hx of transurethral resection of prostate Hx of tonsillectomy Hx of esophagogastroduodenoscopy Hx of colonoscopy History of nasal surgery Hx of left inguinal hernia repair Hx of cervical discectomy Family History Father No problems noted. Mother No problems noted. Social History Household Members: Other Household Members Other:: Mother Alcohol intake: never Patient Tobacco Use Status: Former Tobacco user Tobacco use type: Cigarette Years Smoked: 30 Second Hand Smoke Exposure: No Current occupational status: unemployed Physical Exam Vital Signs: Last Vital Signs Pulse 54 12/27/22 11:22 BP 134/78 12/27/22 11:22 BMI result Body Mass Index 29.5 Assessment & Plan Assessment & Plan (1) Esophageal stricture: Code(s): K22.2 - Esophageal obstruction (2) Sourav infection: Code(s): B37.9 - Candidiasis, unspecified Coding Level of Care Code Est Pt Level 3 (56551) Diagnoses Esophageal stricture K22.2 Sourav infection B37.9
[2022-12-27 11:22] VITALS: BP 134/78; PULSE 54; BMI 29.5
== END 2022-12-27 12:43 | disposition home or self-care (01) ==
PROVIDERS: PCP Internal Medicine; Visit Provider Internal Medicine Gastroenterology
DX: K22.2 Esophageal obstruction (principal); B37.9 Candidiasis, unspecified
CPT/HCPCS: 99213

== ENCOUNTER → 2022-12-27 11:10 | Outpatient (BNVA) | payer MEDICARE, MEDICAID, SELFPAY | PROVIDERS: PCP Internal Medicine; Visit Provider Internal Medicine Gastroenterology | DX: K22.2 Esophageal obstruction (principal); B37.9 Candidiasis, unspecified | CPT/HCPCS: 99212 ==

== ENCOUNTER 2023-01-17 10:29 | Outpatient (REF) | payer MEDICARE, MEDICAID, SELFPAY ==
--- NOTE | ~2023-01-17 | US_ITS ---
EXAMINATION: US RETROPERITONEAL LIMITED (RENAL ONLY) CLINICAL INFORMATION: Calculus of kidney. COMPARISON: Ultrasound abdomen limited 04/05/2022. Renal ultrasound 10/08/2021. X-ray KUB 02/06/2021 and 03/19/2019. CT abdomen and pelvis 10/25/2018. TECHNIQUE: Real-time imaging of the kidneys. Limited visualization due to bowel gas. FINDINGS: RIGHT KIDNEY: 11.3 x 4.2 x 6.2 cm (SAG x AP x TRV). No hydronephrosis. No renal calculi. Renal cortical thickness is normal. Limited visualization. Right renal 2.4 x 2.2 x 1.8 cm lower pole cyst with thin septations, previously 2.7 x 2.6 x 2.7 cm. There is no indication for follow up imaging. LEFT KIDNEY: 10.8 x 5.4 x 5.3 cm (SAG x AP x TRV). No hydronephrosis. No renal calculi. Renal cortical thickness is normal. Limited visualization. US/US renal BI IMPRESSION: No hydronephrosis. No renal calculi. Limited visualization.
== END 2023-01-17 10:30 | disposition home or self-care (01) ==
LOC: HO.HMGCX 10:29
PROVIDERS: PCP Internal Medicine; Visit Provider Urology
DX: N20.0 Calculus of kidney (principal)
CPT/HCPCS: 76775

== ENCOUNTER 2023-01-23 08:19 | Outpatient (AMB) | payer MEDICARE, MEDICAID, SELFPAY ==
--- NOTE | 2023-01-23 08:22 | A.OFFVIS_ITS ---
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 Accompanied by: Self / Same As Patient Allergies metronidazole [From FLAGYL] Allergy (Severe, Verified 01/23/23 08:35) RASH tree and shrub pollen [TREE] Allergy (Severe, Verified 01/23/23 08:35) Rash dexamethasone Adverse Reaction (Severe, Verified 01/23/23 08:35) palpitatiions fluticasone furoate [Breo Ellipta] Adverse Reaction (Severe, Verified 01/23/23 08:35) palpitations, high BP umeclidinium [Incruse Ellipta] Adverse Reaction (Severe, Verified 01/23/23 08:35) palpitations Bee sting Allergy (Severe, Uncoded 01/23/23 08:35) Hives/Difficulty breathing Clindamycin HCl Allergy (Severe, Uncoded 01/23/23 08:35) Hives ENVIRONMENTAL Allergy (Severe, Uncoded 01/23/23 08:35) Rash Medication List - Last Reconciled 01/23/23 by Liborio Nguyễn MD atorvastatin 20 mg PO DAILY 30 days cholecalciferol (vitamin D3) (Vitamin D3) cyclobenzaprine 5 mg PO TID PRN 7 days diazepam 5 mg PO BID epinephrine 0.3 mg IM esomeprazole magnesium 40 mg PO DAILY ipratropium-albuterol 0.5 mg-3 mg(2.5 mg base)/3 mL mL inhalation ipratropium-albuterol 0.5 mg-3 mg(2.5 mg base)/3 mL 3 mL inhalation BID 30 days itraconazole 200 mg (2 x 100 mg) PO DAILY 14 days levalbuterol tartrate 45 mcg/actuation inhalation levocetirizine 5 mg PO DIRECTED lisinopril 2.5 mg PO DAILY Magic Mouthwash Diphen/Lido/Antacid 1:1:1 10 mL PO QID multivitamin with folic acid 400 mcg (Daily-Ashley (with folic acid)) 1 tab PO DAILY nebulizers As directed oxybutynin chloride ER 5 mg PO DAILY 30 days oxycodone mg oxycodone ER (OxyContin) 20 mg PO Q12H [pantoprazole 40 mg] sennosides (senna) 17.2 mg PO BEDTIME HPI HPI Comments History of Present Illness Details Jv VELASQUEZ is a very pleasant male. They are a patient of Dr Troy. He is seen for the following urologic conditions - overactive bladder - nephrolithiasis - renal cyst No evidence of stones Effective urination Good stream Recently treated for fungal esophagitis with upset stomach 12 m f/u Nephrolithiasis/Urolithiasis: They are here for further evaluation of nephrolithiasis. Prior imaging includes 04/12 a renal ultrasound, 2.5 cm right Bosniak 1 cyst no stones 12/11 , a renal ultrasound, showing no evidence of stones, cyst stable - 05/14 renal ultrasound to 2.5 cm cyst on the right - 10/12 renal ultrasound 2.5cm cyst on right Current therapeutic plan will be to continue with imaging surveillance. Lower Urinary Tract Symptoms: Current visit is for Improved flow after TUIP. Did respond to myrbetriq - not covered Prior treatments include 05/13 TUIP. Prostate Symptom Score 12/09 , Mild (0-8), Bother 2. Symptoms include 11/08 incomplete emptying, weak stream, and are progressing 12/09 , weak stream, and are stable. Prior Prostate Score mild. Testing at next visit will include bladder scan. Treatment plan continue with current medications PFSH Medical History Shortness of breath Hypoglycemia Asthma-COPD overlap syndrome Pulmonary nodules COPD (chronic obstructive pulmonary disease) Hx of renal calculi Asthma Hx of allergic rhinitis History of esophageal spasm Hx of chest pain Back pain Osteoarthritis of both hips Hx of goiter History of IBS History of colitis Chronic pain High cholesterol KATHLEEN on CPAP Hx of multiple pulmonary nodules Hypertension PTSD (post-traumatic stress disorder) Panic attacks Dysphagia GERD (gastroesophageal reflux disease) Anxiety Surgical History H/O neck surgery Hx of endoscopy Hx of transurethral resection of prostate Hx of tonsillectomy Hx of esophagogastroduodenoscopy Hx of colonoscopy History of nasal surgery Hx of left inguinal hernia repair Hx of cervical discectomy Family History Father No problems noted. Mother No problems noted. Social History Household Members: Other Household Members Other:: Mother Alcohol intake: never Patient Tobacco Use Status: Former Tobacco user Tobacco use type: Cigarette Years Smoked: 30 Second Hand Smoke Exposure: No Current occupational status: unemployed Review of Systems Const Denies chills and Denies fever(s) Card Reports no additional complaints and Denies syncope Resp Denies cough GI Denies abdominal pain and Denies heartburn Reports as per HPI and Denies change in libido Neuro Denies syncope Psych Denies change in libido Endo Denies change in libido Physical Exam Const General: cooperative, healthy appearing, comfortable and no acute distress Orientation/consciousness: patient oriented x3 HEENT Face and sinus: Yes normal facial exam Mouth: moist mucous membranes Neck Neck: Yes normal visual inspection, Yes full ROM and Yes trachea midline Chest Chest palpation & inspection: normal inspection of the chest Resp Effort & Inspection: normal respiratory effort, able to speak in complete sentences and no respiratory distress GI Inspection: Yes normal to inspection Back/Spine/Pelvis Cervical Spine: normal cervical lordosis Thoracic/Lumbar Spine: thoracic and lumbar spine normal to inspection Skin General skin exam: no rashes or lesions noted Neuro General: patient oriented x3, gait normal, tone normal and moves all extremities Extrem General: Yes normal to inspection and Yes capillary refill normal Assessment & Plan Assessment & Plan (1) Nephrolithiasis: Code(s): N20.0 - Calculus of kidney (2) Bladder outlet obstruction: Code(s): N32.0 - Bladder-neck obstruction Plan Twelve month follow-up imaging Orders: Orders Prostate Specific Antigen 364 Days N20.0 - Calculus of kidney US renal BI 364 Days N20.0 - Calculus of kidney Patient Instructions: Imaging studies, laboratory and physical exam results were discussed and reviewed in detail. No major barriers to patient understanding were identified. An opportunity to ask questions regarding the treatment plan was provided. All questions were answered. The patient expressed understanding and agreement with the above treatment plan. The patient is aware they should contact our office by phone for worsening of their current condition or the appearance of new urologic symptoms. Compliance is encouraged with any medications and followup testing that is ordered. It is a privilege to participate in the urologic care of your patient. If you have any questions or concerns regarding treatment for the above conditions, or other urologic issues, please do not hesitate to contact me. The office telephone contact is [phone]. This note is constructed using voice recognition software. 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 Yours sincerely, Dr Liborio Nguyễn MD, [facility] - Urology Providers of Expert, Compassionate Care for the Genitourinary System Coding Level of Care Code Est Pt Level 4 (59629) Diagnoses Nephrolithiasis N20.0 Bladder outlet obstruction N32.0
== END 2023-01-23 09:10 | disposition home or self-care (01) ==
PROVIDERS: PCP Internal Medicine; Visit Provider Urology
DX: N20.0 Calculus of kidney (principal); N32.0 Bladder-neck obstruction
CPT/HCPCS: 99213

== ENCOUNTER → 2023-01-23 08:19 | Outpatient (BNVA) | payer MEDICARE, MEDICAID, SELFPAY | PROVIDERS: PCP Internal Medicine; Visit Provider Urology | DX: N20.0 Calculus of kidney (principal); N32.0 Bladder-neck obstruction | CPT/HCPCS: 99212 ==

== ENCOUNTER 2023-02-20 10:12 | Day surgery (SDC) | payer MEDICARE, MEDICAID, SELFPAY ==
[2023-02-18 14:19] VITALS: BMI 29.5
--- NOTE | 2023-02-18 14:34 | P.CONAN_ITS ---
Documented by User: Sharmila Rivera NP 02/18/23 14:37 HPI - Anesthesia Eval Consult details Narrative: 57yo M for Upper Endoscopy with Balloon Dilitation s/p same 11/2022 with TIVA (Cardiac optimized. Follows [facility] [place] pulm. Last visit 10/2022 for asthma-copd stable) Chronic opioids PMFSH Active Problems Active Problems: All Active Problems (Updated 12/27/22 @ 11:54 by Wilmar Beal MD) [place] infection (Acute) Nephrolithiasis (Acute) Abnormal EKG (Acute) Tubular adenoma (Acute) Lower abdominal pain (Acute) Neuropathy (Acute) Bladder outlet obstruction (Acute) Renal cyst (Acute) Flank pain (Acute) Chest pain (Acute) Nonalcoholic steatohepatitis (DELUNA) (Acute) Dysphagia (Acute) Bladder spasm (Acute) Palpitation (Acute) Urgency of micturition (Acute) Esophageal stricture (Acute) Pre-op evaluation (Acute) Cervical radiculopathy (Acute) Hx of chest pain (Acute) KATHLEEN on CPAP (Acute) High cholesterol (Acute) Hypertension (Acute) Shortness of breath (Acute) Hypoglycemia (Acute) Asthma-COPD overlap syndrome (Acute) Pulmonary nodules (Acute) GERD (gastroesophageal reflux disease) (Acute) COPD (chronic obstructive pulmonary disease) (Acute) Anxiety (Acute) Past Medical History Medical History Shortness of breath Hypoglycemia Asthma-COPD overlap syndrome Pulmonary nodules COPD (chronic obstructive pulmonary disease) Hx of renal calculi Asthma Hx of allergic rhinitis History of esophageal spasm Hx of chest pain Back pain Osteoarthritis of both hips Hx of goiter History of IBS History of colitis Chronic pain High cholesterol KATHLEEN on CPAP Hx of multiple pulmonary nodules Hypertension PTSD (post-traumatic stress disorder) Panic attacks Dysphagia GERD (gastroesophageal reflux disease) Anxiety Family History Family History Father No problems noted. Mother No problems noted. Family history of problems with anesthesia: Yes (PONV) Surgical History Surgical History H/O neck surgery Hx of endoscopy Hx of transurethral resection of prostate Hx of tonsillectomy Hx of esophagogastroduodenoscopy Hx of colonoscopy History of nasal surgery Hx of left inguinal hernia repair Hx of cervical discectomy History of Problems with Anesthesia: No Social History Social History Household Members: Other Household Members Other:: Mother Alcohol intake: never Patient Tobacco Use Status: Former Tobacco user Tobacco use type: Cigarette Years Smoked: 30 Second Hand Smoke Exposure: No Are you DNR?: No Advance Directives: No Advance Directives Information Provided: Yes Nutrition Risks: No Nutritional Risk Current occupational status: unemployed Meds Allergies Allergy/AdvReac Type Severity Reaction Status Date / Time metronidazole [From FLAGYL] Allergy Severe RASH Verified 02/20/23 10:56 tree and shrub pollen [TREE] Allergy Severe Rash Verified 02/20/23 10:56 dexamethasone AdvReac Severe palpitatiio Verified 02/20/23 10:56 ns fluticasone furoate AdvReac Severe palpitations, Verified 02/20/23 10:56 [Breo Ellipta] high BP umeclidinium AdvReac Severe palpitation Verified 02/20/23 10:56 [Incruse Ellipta] s Bee sting Allergy Severe Hives/Difficulty Uncoded 02/20/23 10:56 breathing Clindamycin HCl Allergy Severe Hives Uncoded 02/20/23 10:56 ENVIRONMENTAL Allergy Severe Rash Uncoded 02/20/23 10:56 Home Medications Medication Instructions Recorded Confirmed Last Taken Type levocetirizine 5 mg tablet 5 mg PO DIRECTED 12/23/19 01/23/23 Unknown History cholecalciferol (vitamin D3) 50 05/09/22 01/23/23 Unknown History mcg (2,000 unit) capsule (Vitamin D3) ipratropium 0.5 mg-albuterol 3 mg ml inhalation 05/09/22 01/23/23 Unknown History (2.5 mg base)/3 mL nebulization soln levalbuterol tartrate 45 inhalation 05/09/22 01/23/23 Unknown History mcg/actuation aerosol inhaler oxycodone 20 mg tablet mg 05/09/22 01/23/23 02/20/23 History nebulizers 10/31/22 01/23/23 Unknown History diazepam 5 mg tablet 5 mg PO BID 11/26/22 01/23/23 Unknown History epinephrine 0.3 mg/0.3 mL 0.3 mg IM anaphylaxis 11/26/22 01/23/23 Unknown History injection, auto-injector lisinopril 2.5 mg tablet 2.5 mg PO DAILY 11/26/22 01/23/23 Unknown History multivitamin with folic acid 400 1 tab PO DAILY 11/26/22 01/23/23 Unknown History mcg tablet (Daily-Ashley (with folic acid)) oxycodone 20 mg tablet,crush 20 mg PO Q12H 12/19/22 01/23/23 12/19/22 History resistant,extended release 12 hr (OxyContin) pantoprazole 40 mg 12/19/22 01/23/23 12/19/22 History sennosides 8.6 mg tablet (senna) 17.2 mg PO BEDTIME 12/27/22 01/23/23 Unknown History Exam Height,Weight and Vital Signs: Height 5 ft 8 in Weight 87.997 kg Pertinent Lab Results Pertinent Lab Results: Laboratory Tests 10/29/22 11:27 WBC 7.9 Hgb 14.2 Hct 44.2 Plt Count 251 Sodium 142 Potassium 4.4 Chloride 106 Carbon Dioxide 28 BUN 11 Creatinine 0.85 Narrative Narrative: EKG 10/2022 Vent. Rate : 055 BPM Atrial Rate : 055 BPM P-R Int : 168 ms QRS Dur : 086 ms QT Int : 430 ms P-R-T Axes : 044 001 022 degrees QTc Int : 411 ms Sinus bradycardia Otherwise normal ECG When compared with ECG of 18-JAN-2021 12:29, No significant change was found Exercise Stress 11/2022 Protocol: JAVIER Max HR: 151 BPM 91% of Pred: 165 BPM Max BP: 172/088 mmHG Max Work Load: 7.9 METS Exercise stress test exercise 6 min 37 sec of Javier protocol achieving 90% MPHR, with mild SOB, without chest discomfort, with isolated PVC, with normotensive response to exercise, without EKG changes for ischemia. Test reviewed with Dr. Esparza. Assessment and Plan Assessment Anesthesia Assessment: Chart Reviewed Final Anesthetic Review Family History of Problems with Anesthesia: Yes (PONV) History of Problems with Anesthesia: No Documented by User: Kenneth Cantor MD 02/20/23 11:34 PMFSH Past Medical History Medical History Shortness of breath Hypoglycemia Asthma-COPD overlap syndrome Pulmonary nodules COPD (chronic obstructive pulmonary disease) Hx of renal calculi Asthma Hx of allergic rhinitis History of esophageal spasm Hx of chest pain Back pain Osteoarthritis of both hips Hx of goiter History of IBS History of colitis Chronic pain High cholesterol KATHLEEN on CPAP Hx of multiple pulmonary nodules Hypertension PTSD (post-traumatic stress disorder) Panic attacks Dysphagia GERD (gastroesophageal reflux disease) Anxiety Family History Family History Father No problems noted. Mother No problems noted. Surgical History Surgical History H/O neck surgery Hx of endoscopy Hx of transurethral resection of prostate Hx of tonsillectomy Hx of esophagogastroduodenoscopy Hx of colonoscopy History of nasal surgery Hx of left inguinal hernia repair Hx of cervical discectomy Social History Social History Household Members: Other Household Members Other:: Mother Alcohol intake: never Patient Tobacco Use Status: Former Tobacco user Tobacco use type: Cigarette Years Smoked: 30 Second Hand Smoke Exposure: No Are you DNR?: No Advance Directives: No Advance Directives Information Provided: Yes Nutrition Risks: No Nutritional Risk Current occupational status: unemployed Meds Allergies Allergy/AdvReac Type Severity Reaction Status Date / Time metronidazole [From FLAGYL] Allergy Severe RASH Verified 02/20/23 10:56 tree and shrub pollen [TREE] Allergy Severe Rash Verified 02/20/23 10:56 dexamethasone AdvReac Severe palpitatiio Verified 02/20/23 10:56 ns fluticasone furoate AdvReac Severe palpitations, Verified 02/20/23 10:56 [Breo Ellipta] high BP umeclidinium AdvReac Severe palpitation Verified 02/20/23 10:56 [Incruse Ellipta] s Bee sting Allergy Severe Hives/Difficulty Uncoded 02/20/23 10:56 breathing Clindamycin HCl Allergy Severe Hives Uncoded 02/20/23 10:56 ENVIRONMENTAL Allergy Severe Rash Uncoded 02/20/23 10:56 Home Medications Medication Instructions Recorded Confirmed Last Taken Type levocetirizine 5 mg tablet 5 mg PO DIRECTED 12/23/19 01/23/23 Unknown History cholecalciferol (vitamin D3) 50 05/09/22 01/23/23 Unknown History mcg (2,000 unit) capsule (Vitamin D3) ipratropium 0.5 mg-albuterol 3 mg ml inhalation 05/09/22 01/23/23 Unknown History (2.5 mg base)/3 mL nebulization soln levalbuterol tartrate 45 inhalation 05/09/22 01/23/23 Unknown History mcg/actuation aerosol inhaler oxycodone 20 mg tablet mg 05/09/22 01/23/23 02/20/23 History nebulizers 10/31/22 01/23/23 Unknown History diazepam 5 mg tablet 5 mg PO BID 11/26/22 01/23/23 Unknown History epinephrine 0.3 mg/0.3 mL 0.3 mg IM anaphylaxis 11/26/22 01/23/23 Unknown History injection, auto-injector lisinopril 2.5 mg tablet 2.5 mg PO DAILY 11/26/22 01/23/23 Unknown History multivitamin with folic acid 400 1 tab PO DAILY 11/26/22 01/23/23 Unknown History mcg tablet (Daily-Ashley (with folic acid)) oxycodone 20 mg tablet,crush 20 mg PO Q12H 12/19/22 01/23/23 12/19/22 History resistant,extended release 12 hr (OxyContin) pantoprazole 40 mg 12/19/22 01/23/23 12/19/22 History sennosides 8.6 mg tablet (senna) 17.2 mg PO BEDTIME 12/27/22 01/23/23 Unknown History Exam Airway Mallampati Class: II TM Dist: >3cm Neck ROM: Full Loose/Missing/Broken Teeth: No Heart: [id number] Lungs: cta b/l Assessment and Plan Assessment Anesthesia Assessment: Anesthesia Plan Discussed Final Anesthetic Review NPO: Yes ASA Class: III Final Preanesthetic Review: No Changes in Pt Med Stat, Meds/Allgs Chart Reviewed, Consent Obtained/Reviewed and Anes Risks/Benef Reviewed Patient Risk: Intermediate Procedure Risk: Intermediate Assessment/Block/Sedation in SS: Assess/Block/Sedation-SS Anesthetic Plan Anesthetic Plan: MAC: and Agree w/ Assess. and Plan Disposition: Standard PACU
--- NOTE | 2023-02-20 06:25 | MHC.SHP ---
Pre-Procedural Eval Section A Date of Service: 02/20/23 Section B Chief Complaint: Achalasia of cardia Details of Present Illness: dysphagia Relevant Family History (Specify if Yes): No Relevant Social History: None Present Medications: see Short Stay [facility] assessment Medical History: Significant History (Shortness of breath Hypoglycemia Asthma-COPD overlap syndrome Pulmonary nodules COPD (chronic obstructive pulmonary disease) Hx of renal calculi Asthma Hx of allergic rhinitis History of esophageal spasm Hx of chest pain Back pain Osteoarthritis of both hips Hx of goiter History of IBS History of co) History of Previous Operations: Relevant previous surgery/procedure and date(s) (H/O neck surgery Hx of endoscopy Hx of transurethral resection of prostate Hx of tonsillectomy Hx of esophagogastroduodenoscopy Hx of colonoscopy History of nasal surgery Hx of left inguinal hernia repair Hx of cervical discectomy) Allergies: Allergies Allergy/AdvReac Type Severity Reaction Status Date / Time metronidazole [From FLAGYL] Allergy Severe RASH Verified 01/23/23 08:35 tree and shrub pollen [TREE] Allergy Severe Rash Verified 01/23/23 08:35 dexamethasone AdvReac Severe palpitatiio Verified 01/23/23 08:35 ns fluticasone furoate AdvReac Severe palpitations, Verified 01/23/23 08:35 [Breo Ellipta] high BP umeclidinium AdvReac Severe palpitation Verified 01/23/23 08:35 [Incruse Ellipta] s Bee sting Allergy Severe Hives/Difficulty Uncoded 01/23/23 08:35 breathing Clindamycin HCl Allergy Severe Hives Uncoded 01/23/23 08:35 ENVIRONMENTAL Allergy Severe Rash Uncoded 01/23/23 08:35 Review of Systems Sugical H&P ROS: Negative: Constitution, Cardiovascular, Respiratory, Neurological, Psychiatric, Hem-Onc, Allergic/Immunologic, Gastrointestinal, Genitourinary, Musculoskeletal, Integumentary, Endocrine and Eyes/Ears/Nose/Throat Exam Surgical H&P Exam: Normal: HEENT, Normal: Heart, Normal: Lungs, Normal: Extremities, Normal: Abdomen, Normal: Skin and Normal: Neurological Plan Diagnosis/Plan: Unchanged I have reviewed the history and physical and performed a pertinent physical examination on my patient. No changes have occurred unless specified. EGD with dilation Time Spent With Patient Time: Total time managing care of this patient today ____ minutes.
[2023-02-20 10:53] VITALS: BMI 28.7
[2023-02-20] MEDS: Lactated Ringers 1,000 ML 100 ML IVCONT (11:00)
[2023-02-20 11:12] VITALS: BP 145/84; PULSE 73; RESP 18; TEMP 36.7; O2SAT 97
--- NOTE | 2023-02-20 11:50 | W.PM.OPN ---
Operative Note Operative Note Date of Service: 02/20/23 Narrative: Procedure Description: EGD Indication: dysphagia Anesthesia: MAC FLEXIBLE TRANSORAL UPPER GASTROINTESTINAL ENDOSCOPY UPPER ENDOSCOPY Consent: Indications for the procedure and potential complications of bleeding, perforation, reaction to medications and missed diagnosis were discussed with the patient and informed consent was obtained. Instrument: Olympus GIF H 190 J mid size upper endoscope Monitoring: Vital signs and clinical assessment, continuous EKG monitoring, Pulse oximetry, Carbon Dioxide monitoring and blood pressure monitoring were done throughout the procedure. Procedure: The patient was placed in the left lateral decubitis position and pre-procedure medications were administered and a bite block was placed. The endoscope was inserted into the mouth and advanced under direct vision to the third part of duodenum. A careful inspection was made as the upper endoscope was withdrawn including a retroflexed examination of the proximal stomach; Findings and interventions are described below. Findings: Larynx:normal Esophagus: GE junction at 40 cm, diaphragm hiatus at 40 cm, LES dilated with 18-20 mm balloon in step wade fashion no tear seen. UES also dilated to 18 mm with superficial tear noted. Stomach: Normal mucosa. Grade 2 flap valve on retroflexed examination of the cardia. Partial wrap from prior fundoplication noted Duodenum: Normal bulb and descending duodenum, Intervention: Balloon dilation Impression/Findings: upper esophageal stricture PLAN: magic mouthwash for 1 week make sure taking PPI , can take tylenol for pain
[2023-02-20 12:28] VITALS: BP 120/86; PULSE 97; RESP 16; TEMP 36.6; O2SAT 93
[2023-02-20 12:43] VITALS: BP 137/70; PULSE 73; RESP 16; O2SAT 98
[2023-02-20 12:58] VITALS: BP 145/89; PULSE 77; RESP 14; TEMP 36.6; O2SAT 97
== END 2023-02-20 13:40 | disposition home or self-care (01) ==
PROVIDERS: PCP Internal Medicine; Visit Provider Internal Medicine Gastroenterology
PROC: (CPT 43249; principal; 2023-02-20 12:00)
DX: K22.2 Esophageal obstruction (principal); R13.10 Dysphagia, unspecified; K44.9 Diaphragmatic hernia without obstruction or gangrene; E16.2 Hypoglycemia, unspecified; J44.9 Chronic obstructive pulmonary disease, unspecified; R91.8 Other nonspecific abnormal finding of lung field; R06.02 Shortness of breath; I10 Essential (primary) hypertension; E78.00 Pure hypercholesterolemia, unspecified; G47.33 Obstructive sleep apnea (adult) (pediatric); M16.0 Bilateral primary osteoarthritis of hip; F11.20 Opioid dependence, uncomplicated; Z79.899 Other long term (current) drug therapy; Z99.89 Dependence on other enabling machines and devices; Z88.1 Allergy status to other antibiotic agents; Z88.8 Allergy status to other drugs, medicaments and biological substances; Z98.890 Other specified postprocedural states; Z87.442 Personal history of urinary calculi; Z87.891 Personal history of nicotine dependence
CPT/HCPCS: 43249; C1726; J2250; J2704

== ENCOUNTER → 2023-02-20 10:12 | Outpatient (BNV) | payer MEDICARE, MEDICAID, SELFPAY | PROVIDERS: PCP Internal Medicine; Visit Provider Internal Medicine Gastroenterology | DX: R13.10 Dysphagia, unspecified (principal); K22.2 Esophageal obstruction | CPT/HCPCS: 43249 ==

== ENCOUNTER 2023-03-09 09:16 | Emergency (ER) | payer OTHER, MEDICARE, MEDICAID, SELFPAY ==
[2023-03-09 09:41] VITALS: BP 139/73; PULSE 72; RESP 16; TEMP 36.3; O2SAT 97; BMI 29.5
--- NOTE | 2023-03-09 12:16 | PC.NURSE ---
pt left w/o seeing provider due to long wait time, pt was advised after bringing him back to a room that there was going to be a little bit of a wait to see a provider, pt stated that he didn't like what you are trying to pull and left ED. pt had previously talked to nursing supervisor [facility] [employer] regarding wait time in waiting room. provider aware.
== END 2023-03-09 12:19 | disposition left against medical advice (07) ==
PROVIDERS: Emergency Provider Emergency Medicine; PCP Internal Medicine
DX: M54.50 Low back pain, unspecified (principal); M54.2 Cervicalgia; M25.512 Pain in left shoulder
CPT/HCPCS: 99281

== ENCOUNTER 2023-03-10 13:32 | Outpatient (AMB) | payer MEDICARE, MEDICAID, SELFPAY ==
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
[2023-03-10 13:37] VITALS: BP 125/72; PULSE 76; BMI 29.2
== END 2023-03-10 14:45 | disposition home or self-care (01) ==
PROVIDERS: PCP Internal Medicine; Visit Provider Internal Medicine Gastroenterology
DX: E66.3 Overweight (principal); K22.2 Esophageal obstruction
CPT/HCPCS: 99213

== ENCOUNTER → 2023-03-10 13:32 | Outpatient (BNVA) | payer MEDICARE, MEDICAID, SELFPAY | PROVIDERS: PCP Internal Medicine; Visit Provider Internal Medicine Gastroenterology | DX: K22.2 Esophageal obstruction (principal); E66.3 Overweight; Z68.29 Body mass index [BMI] 29.0-29.9, adult | CPT/HCPCS: 99212 ==

== ENCOUNTER 2023-05-08 09:40 | Day surgery (SDC) | payer MEDICARE, MEDICAID, SELFPAY ==
--- NOTE | 2023-05-07 10:44 | P.CONAN_ITS ---
Documented by User: Sharmila Rivera NP 05/07/23 10:46 HPI - Anesthesia Eval Consult details Narrative: 57yo M for ?Upper Endoscopy with Balloon Dilitation s/p same 11/2022 and 01/2023 with TIVA (Cardiac optimized for 11/2022. Follows [facility] pulm. Last visit 10/2022 for asthma- copd stable) Chronic opioids PMFSH Active Problems Active Problems: All Active Problems (Updated 03/10/23 @ 14:21 by Wilmar Beal MD) Overweight (BMI 25.0-29.9) (Acute) [place] infection (Acute) Nephrolithiasis (Acute) Abnormal EKG (Acute) Tubular adenoma (Acute) Lower abdominal pain (Acute) Neuropathy (Acute) Bladder outlet obstruction (Acute) Renal cyst (Acute) Flank pain (Acute) Chest pain (Acute) Nonalcoholic steatohepatitis (DELUNA) (Acute) Dysphagia (Acute) Bladder spasm (Acute) Palpitation (Acute) Urgency of micturition (Acute) Esophageal stricture (Acute) Pre-op evaluation (Acute) Cervical radiculopathy (Acute) Hx of chest pain (Acute) KATHLEEN on CPAP (Acute) High cholesterol (Acute) Hypertension (Acute) Shortness of breath (Acute) Hypoglycemia (Acute) Asthma-COPD overlap syndrome (Acute) Pulmonary nodules (Acute) GERD (gastroesophageal reflux disease) (Acute) COPD (chronic obstructive pulmonary disease) (Acute) Anxiety (Acute) Past Medical History Medical History (Updated 05/08/23 @ 11:02 by Rose Marie Bateman, RN) Shortness of breath Hypoglycemia Asthma-COPD overlap syndrome Pulmonary nodules COPD (chronic obstructive pulmonary disease) Hx of renal calculi Asthma Hx of allergic rhinitis History of esophageal spasm Hx of chest pain Back pain Osteoarthritis of both hips Hx of goiter History of IBS History of colitis Chronic pain High cholesterol Hx of multiple pulmonary nodules Hypertension PTSD (post-traumatic stress disorder) Panic attacks Dysphagia GERD (gastroesophageal reflux disease) Anxiety Family History Family History Father No problems noted. Mother No problems noted. Family history of problems with anesthesia: Yes (PONV) Surgical History Surgical History (Updated 05/08/23 @ 11:03 by Rose Marie Bateman, RN) H/O shoulder surgery H/O neck surgery Hx of endoscopy Hx of transurethral resection of prostate Hx of tonsillectomy Hx of esophagogastroduodenoscopy Hx of colonoscopy History of nasal surgery Hx of left inguinal hernia repair Hx of cervical discectomy History of Problems with Anesthesia: No Social History Social History Household Members: Other Household Members Other:: Mother Alcohol intake: never Patient Tobacco Use Status: Former Tobacco user Tobacco use type: Cigarette Years Smoked: 30 Second Hand Smoke Exposure: No Are you DNR?: No Advance Directives: No Advance Directives Information Provided: Yes How much weight loss: 14-23 pounds Nutrition Risks: No Nutritional Risk Current occupational status: unemployed Meds Allergies Allergy/AdvReac Type Severity Reaction Status Date / Time metronidazole [From FLAGYL] Allergy Severe RASH Verified 03/10/23 13:37 tree and shrub pollen [TREE] Allergy Severe Rash Verified 03/10/23 13:37 dexamethasone AdvReac Severe palpitatiio Verified 03/10/23 13:37 ns fluticasone furoate AdvReac Severe palpitations, Verified 03/10/23 13:37 [Breo Ellipta] high BP umeclidinium AdvReac Severe palpitation Verified 03/10/23 13:37 [Incruse Ellipta] s Bee sting Allergy Severe Hives/Difficulty Uncoded 03/10/23 13:37 breathing Clindamycin HCl Allergy Severe Hives Uncoded 03/10/23 13:37 ENVIRONMENTAL Allergy Severe Rash Uncoded 03/10/23 13:37 Home Medications Medication Instructions Recorded Confirmed Last Taken Type levocetirizine 5 mg tablet 5 mg PO DIRECTED 12/23/19 01/23/23 Unknown History cholecalciferol (vitamin D3) 50 05/09/22 01/23/23 Unknown History mcg (2,000 unit) capsule (Vitamin D3) ipratropium 0.5 mg-albuterol 3 mg ml inhalation 05/09/22 01/23/23 Unknown History (2.5 mg base)/3 mL nebulization soln levalbuterol tartrate 45 inhalation 05/09/22 01/23/23 Unknown History mcg/actuation aerosol inhaler nebulizers 10/31/22 01/23/23 Unknown History diazepam 5 mg tablet 5 mg PO BID 11/26/22 01/23/23 Unknown History epinephrine 0.3 mg/0.3 mL 0.3 mg IM anaphylaxis 11/26/22 01/23/23 Unknown History injection, auto-injector lisinopril 2.5 mg tablet 2.5 mg PO DAILY 11/26/22 01/23/23 Unknown History multivitamin with folic acid 400 1 tab PO DAILY 11/26/22 01/23/23 Unknown History mcg tablet (Daily-Ashley (with folic acid)) oxycodone 20 mg tablet,crush 20 mg PO Q12H 12/19/22 01/23/23 05/08/23 History resistant,extended release 12 hr (OxyContin) Exam Pertinent Lab Results Pertinent Lab Results: Laboratory Tests 10/29/22 11:27 WBC 7.9 Hgb 14.2 Hct 44.2 Plt Count 251 Sodium 142 Potassium 4.4 Chloride 106 Carbon Dioxide 28 BUN 11 Creatinine 0.85 Narrative Narrative: EKG 10/2022 Vent. Rate : 055 BPM Atrial Rate : 055 BPM P-R Int : 168 ms QRS Dur : 086 ms QT Int : 430 ms P-R-T Axes : 044 001 022 degrees QTc Int : 411 ms Sinus bradycardia Otherwise normal ECG When compared with ECG of 18-JAN-2021 12:29, No significant change was found Exercise Stress 11/2022 Protocol: JAVIER Max HR: 151 BPM 91% of Pred: 165 BPM Max BP: 172/088 mmHG Max Work Load: 7.9 METS Exercise stress test exercise 6 min 37 sec of Javier protocol achieving 90% MPHR, with mild SOB, without chest discomfort, with isolated PVC, with normotensive response to exercise, without EKG changes for ischemia. Test reviewed with Dr. Esparza. Assessment and Plan Assessment Anesthesia Assessment: Chart Reviewed Final Anesthetic Review Family History of Problems with Anesthesia: Yes (PONV) History of Problems with Anesthesia: No Documented by User: Marcus Martinez MD 05/08/23 12:25 [facility] Past Medical History Medical History (Updated 05/08/23 @ 11:02 by Rose Marie Bateman RN) Shortness of breath Hypoglycemia Asthma-COPD overlap syndrome Pulmonary nodules COPD (chronic obstructive pulmonary disease) Hx of renal calculi Asthma Hx of allergic rhinitis History of esophageal spasm Hx of chest pain Back pain Osteoarthritis of both hips Hx of goiter History of IBS History of colitis Chronic pain High cholesterol Hx of multiple pulmonary nodules Hypertension PTSD (post-traumatic stress disorder) Panic attacks Dysphagia GERD (gastroesophageal reflux disease) Anxiety Family History Family History Father No problems noted. Mother No problems noted. Family history of problems with anesthesia: Yes (PONV. pt doesn't want ketamine) Surgical History Surgical History (Updated 05/08/23 @ 11:03 by Rose Marie Bateman RN) H/O shoulder surgery H/O neck surgery Hx of endoscopy Hx of transurethral resection of prostate Hx of tonsillectomy Hx of esophagogastroduodenoscopy Hx of colonoscopy History of nasal surgery Hx of left inguinal hernia repair Hx of cervical discectomy Social History Social History Household Members: Other Household Members Other:: Mother Alcohol intake: never Patient Tobacco Use Status: Former Tobacco user Tobacco use type: Cigarette Years Smoked: 30 Second Hand Smoke Exposure: No Are you DNR?: No Advance Directives: No Advance Directives Information Provided: Yes How much weight loss: 14-23 pounds Nutrition Risks: No Nutritional Risk Current occupational status: unemployed Meds Allergies Allergy/AdvReac Type Severity Reaction Status Date / Time metronidazole [From FLAGYL] Allergy Severe RASH Verified 03/10/23 13:37 tree and shrub pollen [TREE] Allergy Severe Rash Verified 03/10/23 13:37 dexamethasone AdvReac Severe palpitatiio Verified 03/10/23 13:37 ns fluticasone furoate AdvReac Severe palpitations, Verified 03/10/23 13:37 [Breo Ellipta] high BP umeclidinium AdvReac Severe palpitation Verified 03/10/23 13:37 [Incruse Ellipta] s Bee sting Allergy Severe Hives/Difficulty Uncoded 03/10/23 13:37 breathing Clindamycin HCl Allergy Severe Hives Uncoded 03/10/23 13:37 ENVIRONMENTAL Allergy Severe Rash Uncoded 03/10/23 13:37 Home Medications Medication Instructions Recorded Confirmed Last Taken Type levocetirizine 5 mg tablet 5 mg PO DIRECTED 12/23/19 01/23/23 Unknown History cholecalciferol (vitamin D3) 50 05/09/22 01/23/23 Unknown History mcg (2,000 unit) capsule (Vitamin D3) ipratropium 0.5 mg-albuterol 3 mg ml inhalation 05/09/22 01/23/23 Unknown History (2.5 mg base)/3 mL nebulization soln levalbuterol tartrate 45 inhalation 05/09/22 01/23/23 Unknown History mcg/actuation aerosol inhaler nebulizers 10/31/22 01/23/23 Unknown History diazepam 5 mg tablet 5 mg PO BID 11/26/22 01/23/23 Unknown History epinephrine 0.3 mg/0.3 mL 0.3 mg IM anaphylaxis 11/26/22 01/23/23 Unknown History injection, auto-injector lisinopril 2.5 mg tablet 2.5 mg PO DAILY 11/26/22 01/23/23 Unknown History multivitamin with folic acid 400 1 tab PO DAILY 11/26/22 01/23/23 Unknown History mcg tablet (Daily-Ashley (with folic acid)) oxycodone 20 mg tablet,crush 20 mg PO Q12H 12/19/22 01/23/23 05/08/23 History resistant,extended release 12 hr (OxyContin) Exam Airway Mallampati Class: II TM Dist: >3cm Neck ROM: Full Denture: Lower Heart: ok Lungs: ok Assessment and Plan Assessment Anesthesia Assessment: Anesthesia Plan Discussed Final Anesthetic Review Family History of Problems with Anesthesia: Yes (PONV. pt doesn't want ketamine) NPO: Yes ASA Class: III Final Preanesthetic Review: No Changes in Pt Med Stat, Meds/Allgs Chart Reviewed, Consent Obtained/Reviewed and Anes Risks/Benef Reviewed Patient Risk: Intermediate Procedure Risk: Intermediate Anesthetic Plan Anesthetic Plan: Agree w/ Assess. and Plan and TIVA Disposition: Standard PACU
[2023-05-08 10:41] VITALS: BMI 28.2
[2023-05-08 10:58] VITALS: BP 135/80; PULSE 76; RESP 20; TEMP 36.8; O2SAT 98; BMI 28.2
--- NOTE | 2023-05-08 11:10 | P.HPSUR_ITS ---
Pre-Procedural Eval Section A - 24 Hr Update-Section A only Date of Service: 05/08/23 Section B - Complete if H&P > 30 days Chief Complaint: Achalasia of cardia Relevant Family History (Specify if Yes): No Relevant Social History: None Present Medications: see Short Stay Collaborative assessment Medical History: Significant History (Shortness of breath Hypoglycemia Asthma- COPD overlap syndrome Pulmonary nodules COPD (chronic obstructive pulmonary disease) Hx of renal calculi Asthma Hx of allergic rhinitis History of esophageal spasm Hx of chest pain Back pain Osteoarthritis of both hips Hx of goiter History of IBS History of co) History of Previous Operations: Relevant previous surgery/procedure and date(s) (H/O neck surgery Hx of endoscopy Hx of transurethral resection of prostate Hx of tonsillectomy Hx of esophagogastroduodenoscopy Hx of colonoscopy History of nasal surgery Hx of left inguinal hernia repair Hx of cervical discectomy) Allergies: Allergies Allergy/AdvReac Type Severity Reaction Status Date / Time metronidazole [From FLAGYL] Allergy Severe RASH Verified 03/10/23 13:37 tree and shrub pollen [TREE] Allergy Severe Rash Verified 03/10/23 13:37 dexamethasone AdvReac Severe palpitatiio Verified 03/10/23 13:37 ns fluticasone furoate AdvReac Severe palpitations, Verified 03/10/23 13:37 [Breo Ellipta] high BP umeclidinium AdvReac Severe palpitation Verified 03/10/23 13:37 [Incruse Ellipta] s Bee sting Allergy Severe Hives/Difficulty Uncoded 03/10/23 13:37 breathing Clindamycin HCl Allergy Severe Hives Uncoded 03/10/23 13:37 ENVIRONMENTAL Allergy Severe Rash Uncoded 03/10/23 13:37 Review of Systems Sugical H&P ROS: Negative: Constitution, Cardiovascular, Respiratory, Neurological, Psychiatric, Hem-Onc, Allergic/Immunologic, Gastrointestinal, Genitourinary, Musculoskeletal, Integumentary, Endocrine and Eyes/Ears/Nose/Throat Exam Surgical H&P Exam: Normal: HEENT, Normal: Heart, Normal: Lungs, Normal: Extremities, Normal: Abdomen, Normal: Skin and Normal: Neurological Plan Diagnosis/Plan: Unchanged I have reviewed the history and physical and performed a pertinent physical examination on my patient. No changes have occurred unless specified. EGD with dilation -savary Time Spent With Patient Time: Total time managing care of this patient today ____ minutes.
[2023-05-08] MEDS: Lactated Ringers 1,000 ML 100 ML IVCONT (11:12)
--- NOTE | 2023-05-08 12:29 | W.PM.OPN ---
Operative Note Operative Note Date of Service: 05/08/23 Narrative: Procedure Description: EGD Indication: dysphagia Anesthesia: MAC FLEXIBLE TRANSORAL UPPER GASTROINTESTINAL ENDOSCOPY UPPER ENDOSCOPY Consent: Indications for the procedure and potential complications of bleeding, perforation, reaction to medications and missed diagnosis were discussed with the patient and informed consent was obtained. Instrument: Olympus GIF H 190 J mid size upper endoscope Monitoring: Vital signs and clinical assessment, continuous EKG monitoring, Pulse oximetry, Carbon Dioxide monitoring and blood pressure monitoring were done throughout the procedure. Procedure: The patient was placed in the left lateral decubitis position and pre-procedure medications were administered and a bite block was placed. The endoscope was inserted into the mouth and advanced under direct vision to the third part of duodenum. A careful inspection was made as the upper endoscope was withdrawn including a retroflexed examination of the proximal stomach; Findings and interventions are described below. Findings: Larynx:normal Esophagus: GE junction at 40 cm, diaphragm hiatus at 40 cm, dilation done with 17 mm bougie using savary wire with superficial tear noted in the upper esophagus. There was mild esophagitis at the GEJ, bx taken from here and distal esophagus Stomach: Normal mucosa. Grade 2 flap valve on retroflexed examination of the cardia. Partial wrap from prior fundoplication noted, scattered fundic gland polyps Duodenum: Normal bulb and descending duodenum, Intervention: Savary dilation, biopsy Impression/Findings: upper esophageal stricture s/p savary esophagitis fundic gland polyps PLAN: magic mouthwash for 1 week make sure taking PPI might change the formulation , can take tylenol for pain or nsaid if needed
[2023-05-08 13:02] VITALS: BP 109/67; PULSE 90; RESP 18; TEMP 36.9; O2SAT 92
[2023-05-08 13:17] VITALS: BP 118/84; PULSE 92; RESP 18; TEMP 37.1; O2SAT 95
[2023-05-08 13:32] VITALS: BP 117/84; PULSE 88; RESP 18; TEMP 36.9; O2SAT 95
== END 2023-05-08 14:52 | disposition home or self-care (01) ==
PROVIDERS: PCP Internal Medicine; Visit Provider Internal Medicine Gastroenterology
PROC: (CPT 43248; principal; 2023-05-08 13:20)
DX: K20.80 Other esophagitis without bleeding (principal); K22.2 Esophageal obstruction; K31.7 Polyp of stomach and duodenum; K22.0 Achalasia of cardia; R13.10 Dysphagia, unspecified; I10 Essential (primary) hypertension; E78.00 Pure hypercholesterolemia, unspecified; J44.9 Chronic obstructive pulmonary disease, unspecified; G47.33 Obstructive sleep apnea (adult) (pediatric); Z99.89 Dependence on other enabling machines and devices
CPT/HCPCS: 43248; 43239; 88305; 88313; C1769; J2250; J2704; J3010

== ENCOUNTER → 2023-05-08 09:40 | Outpatient (BNV) | payer MEDICARE, MEDICAID, SELFPAY | PROVIDERS: PCP Internal Medicine; Visit Provider Internal Medicine Gastroenterology | DX: R13.10 Dysphagia, unspecified (principal); K22.2 Esophageal obstruction; K20.90 Esophagitis, unspecified without bleeding; K31.7 Polyp of stomach and duodenum | CPT/HCPCS: 43248 ==

== ENCOUNTER 2023-06-30 09:48 | Outpatient (AMB) | payer MEDICARE, MEDICAID, SELFPAY ==
[2023-06-30 10:06] VITALS: BP 118/70; PULSE 71; O2SAT 98; BMI 28.7
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
== END 2023-06-30 10:24 | disposition home or self-care (01) ==
PROVIDERS: PCP Internal Medicine; Visit Provider Hospitalist
DX: J44.9 Chronic obstructive pulmonary disease, unspecified (principal); R91.8 Other nonspecific abnormal finding of lung field; K21.9 Gastro-esophageal reflux disease without esophagitis
CPT/HCPCS: 99214

== ENCOUNTER → 2023-06-30 09:48 | Outpatient (BNVA) | payer MEDICARE, MEDICAID, SELFPAY | PROVIDERS: PCP Internal Medicine; Visit Provider Hospitalist | DX: J44.9 Chronic obstructive pulmonary disease, unspecified (principal); R91.8 Other nonspecific abnormal finding of lung field; K21.9 Gastro-esophageal reflux disease without esophagitis | CPT/HCPCS: 99212 ==

== ENCOUNTER → 2023-07-14 08:29 | Outpatient (BNVA) | payer MEDICARE, MEDICAID, SELFPAY | PROVIDERS: PCP Internal Medicine; Visit Provider Physician Assistant Surgical ==

== ENCOUNTER 2023-07-14 08:51 | Emergency (ER) | payer MEDICARE, MEDICAID, SELFPAY ==
[2023-07-14 08:56] VITALS: BP 152/92; PULSE 67; RESP 16; TEMP 36.5; O2SAT 97; BMI 26.6
--- NOTE | 2023-07-14 11:11 | ED_ITS ---
HPI - General Adult General Chief complaint: General Medical Stated complaint: slim fast drink burned back of throat ? Time Seen by Provider: 07/14/23 10:24 Source: patient Mode of arrival: ambulatory Limitations: no limitations History of Present Illness HPI narrative: 57-year-old male history of high cholesterol, hypertension, nonalcoholic steatohepatitis, tubular adenoma presents to the ED for burning scratchy sensation in the throat after drinking Slim-Fast that occurred last night. Patient states immediately after drinking Slim-Fast chocolate flavor he had burning in his throat, and multiple episodes of diarrhea immediately. Patient states diarrhea resolved, but still has burning sensation in back of throat. Patient denies any chest pain, shortness of breath, abdominal pain, fever, chills, acid burning sensation in chest, headache, dizziness, rash, or swelling of lips. patient denies any sensation of throat closing. Related Data Home Medications ?Medication ?Instructions ?Recorded ?Confirmed levocetirizine 5 mg tablet 5 mg PO DIRECTED 12/23/19 01/23/23 cholecalciferol (vitamin D3) 50 05/09/22 01/23/23 mcg (2,000 unit) capsule (Vitamin D3) ipratropium 0.5 mg-albuterol 3 mg ml inhalation 05/09/22 01/23/23 (2.5 mg base)/3 mL nebulization soln levalbuterol tartrate 45 inhalation 05/09/22 01/23/23 mcg/actuation aerosol inhaler nebulizers 10/31/22 01/23/23 diazepam 5 mg tablet 5 mg PO BID 11/26/22 01/23/23 epinephrine 0.3 mg/0.3 mL 0.3 mg IM anaphylaxis 11/26/22 01/23/23 injection, auto-injector oxycodone 20 mg tablet,crush 20 mg PO Q12H 12/19/22 01/23/23 resistant,extended release 12 hr (OxyContin) Previous Rx's ?Medication ?Instructions ?Recorded atorvastatin 20 mg tablet 20 mg PO DAILY 30 days #30 tabs 01/25/20 ipratropium 0.5 mg-albuterol 3 mg 3 ml inhalation BID 30 days #180 mL 09/19/22 (2.5 mg base)/3 mL nebulization soln orlistat 60 mg capsule 60 mg PO TID #30 caps 03/10/23 Magic Mouthwash 10 ml PO QID #240 mL 05/08/23 Diphen/Lido/Antacid 1:1:1 240 mL suspension Magic Mouthwash 10 ml PO QID #240 mL 05/23/23 Diphen/Lido/Antacid 1:1:1 240 mL suspension esomeprazole magnesium 40 mg 40 mg PO BID #90 caps 05/30/23 capsule,delayed release sucralfate 100 mg/mL oral 10 ml PO BID #1,000 mL 06/06/23 suspension baclofen 5 mg tablet 5 mg PO BEDTIME #30 tabs 06/10/23 Allergies Allergy/AdvReac Type Severity Reaction Status Date / Time metronidazole [From FLAGYL] Allergy Severe RASH Verified 07/14/23 08:58 tree and shrub pollen [TREE] Allergy Severe Rash Verified 07/14/23 08:58 dexamethasone AdvReac Severe palpitatiio Verified 07/14/23 08:58 ns fluticasone furoate AdvReac Severe palpitations, Verified 07/14/23 08:58 [Breo Ellipta] high BP umeclidinium AdvReac Severe palpitation Verified 07/14/23 08:58 [Incruse Ellipta] s Bee sting Allergy Severe Hives/Difficulty Uncoded 06/30/23 10:10 breathing Clindamycin HCl Allergy Severe Hives Uncoded 06/30/23 10:10 ENVIRONMENTAL Allergy Severe Rash Uncoded 06/30/23 10:10 Review of Systems Review of Systems: burning sensation and throat diarrhea Yes all other systems are reviewed and are negative PMFSH Past Medical History Medical History (Updated 07/15/23 @ 00:02 by Shayy Pace) Shortness of breath Hypoglycemia Asthma-COPD overlap syndrome Pulmonary nodules COPD (chronic obstructive pulmonary disease) Hx of renal calculi Asthma Hx of allergic rhinitis History of esophageal spasm Hx of chest pain Back pain Osteoarthritis of both hips Hx of goiter History of IBS History of colitis Chronic pain High cholesterol Hx of multiple pulmonary nodules Hypertension PTSD (post-traumatic stress disorder) Panic attacks Dysphagia GERD (gastroesophageal reflux disease) Anxiety Surgical History (Updated 05/08/23 @ 11:03 by Rose Marie Bateman RN) H/O shoulder surgery H/O neck surgery Hx of endoscopy Hx of transurethral resection of prostate Hx of tonsillectomy Hx of esophagogastroduodenoscopy Hx of colonoscopy History of nasal surgery Hx of left inguinal hernia repair Hx of cervical discectomy Family History Family History Father No problems noted. Mother No problems noted. Social History Social History Household Members: Other Household Members Other:: Mother Alcohol intake: never Patient Tobacco Use Status: Former Tobacco user Tobacco use type: Cigarette Years Smoked: 30 Second Hand Smoke Exposure: No Advance Directives: No Advance Directives Information Provided: No Current occupational status: unemployed Physical Exam ED Vital Signs: Vital Signs - 24 hr 07/14/23 08:56 Temperature 97.7 F Pulse Rate 67 Respiratory Rate 16 Blood Pressure 152/92 H Pulse Oximetry 97 Oxygen Delivery Method Room Air BMI result Body Mass Index 26.6 Const General: cooperative, healthy appearing, comfortable, no acute distress, well developed, alert and awake Orientation/consciousness: oriented to person, oriented to place, oriented to time and patient oriented x3 HENMT Other: negative for lip swelling, drooling, change in voice, hoarseness, or signs of peritonsillar abscess Head: Yes normal to inspection, Yes No palpable skull fracture present, Yes normocephalic and Yes atraumatic Throat: Yes posterior oropharynx normal, Yes tonsils normal and Yes uvula midline Eyes General: appearance normal, both eyes and all related structures Neck Neck: Yes normal visual inspection, Yes full ROM, Yes no lymphadenopathy, Yes no meningeal signs, Yes trachea midline, Yes supple, No anterior neck swelling and No tender Chest Chest palpation & inspection: normal inspection of the chest and normal palpation of entire chest wall Resp Effort & Inspection: normal respiratory effort and able to speak in complete se ntences Auscultation: clear to auscultation bilaterally Cardio Jugular venous distension: no JVD GI Inspection: Yes normal to inspection Palpation (GI): Soft to palpation, not firm, nontender, no guarding and not rigid General: No CVA tenderness and Yes no CVA tenderness Back/Spine/Pelvis Back: no CVA tenderness, No CVA tenderness and No back tenderness Skin General skin exam: no rashes or lesions noted, elasticity normal and turgor normal Neuro General: oriented to person, oriented to place, oriented to time, patient oriented x3, gait normal, tone normal, moves all extremities, Normal light touch and pain sensation, no meningeal signs, no focal motor deficits, CN's II-XI intact bilaterally and normal sensation to monofilament Extrem General: Yes normal to inspection, Yes full ROM and Yes capillary refill normal Psych Appearance: grossly normal, well kempt and not disheveled Medical Decision Making Medical Decision Making MDM Narrative: 57-year-old patient presents to ED for burning sensation in throat and diarrhea after drinking Slim-Fast. Patient states no other complaint. Patient well- appearing. oral cavity negative for signs of black tar, lesions, peritonsillar abscess, trismus, or swelling of tongue or tongue floor. Negative for any neck swelling. Patient is speaking in clear sentences. Patient denies any burning sensation in chest or abdomen. Not suspecting myocardial infarction. Not suspecting anaphylaxis. Not suspecting allergic reaction. Upon research on the Internet on medical literature and has been found that burning of the throat after drinking Slim-Fast and diarrhea has been common side effects and is presently been investigated. As this moment no answer with chemicals in slim fast as per research Medical Literature. no need to call poison control. patient informed to stop drinking Slim-Fast. Patient explained worrisome sign and informed to return to the ED for has them. Patient is swabbed for strep and would like to be called with results Differential Diagnosis Differential Diagnoses: The differential diagnosis associated with the presentation includes ( medication side effects, strep, GERD) Admission/Observation Consideration of admission/observation: Escalation of care including admission/observation considered Lab Data Labs: Lab Results 07/14/23 Range/Units 11:32 S. pyogenes GrpA KIRT Invalid (Negative) Independent Historian Clinical information obtained from an independent historian. History obtained from or confirmed by: Other ( patient) External Record Review External record reviewed: Other ( prior visit) Discharge Plan Discharge Clinical Impression: Medication side effects Patient Disposition: Home, Self-Care Instructions: Adverse Drug Reaction (ED) Additional Instructions: stop drinking Slim-Fast. Return to the ED for any swelling of lips, swelling of tongue, sensation of throat closing, rash, hives, chest pain, shortness of breath, fever, chills, abdominal pain, coughing up blood, rectal bleeding, or any other concerning symptoms. Recommend follow-up with primary care provider Prescriptions: No Action atorvastatin 20 mg tablet 20 mg PO DAILY 30 Days Qty: 30 1RF ipratropium-albuterol 0.5 mg-3 mg(2.5 mg base)/3 mL solution for nebulization 3 ml inhalation BID 30 Days Qty: 180 11RF Magic Mouthwash Diphen/Lido/Antacid 1:1:1 240 mL suspension 10 ml PO QID Qty: 240 0RF Rx Instructions: Lidocaine Viscous 2 % 80mL; diphenhydramine 12.5 mg/5 mL 80mL; aluminum-mag hydrox-simeth [id number]/5mL 80mL esomeprazole magnesium 40 mg capsule,delayed release(DR/EC) 40 mg PO BID Qty: 90 1RF sucralfate 100 mg/mL suspension 10 ml PO BID Qty: 1000 1RF baclofen 5 mg tablet 5 mg PO BEDTIME Qty: 30 0RF ipratropium-albuterol 0.5 mg-3 mg(2.5 mg base)/3 mL solution for nebulization INHALATION levalbuterol tartrate 45 mcg/actuation HFA aerosol inhaler INHALATION cholecalciferol (vitamin D3) [Vitamin D3] 50 mcg (2,000 unit) capsule Magic Mouthwash Diphen/Lido/Antacid 1:1:1 240 mL suspension 10 ml PO QID Qty: 240 0RF Rx Instructions: Lidocaine Viscous 2 % 80mL; diphenhydramine 12.5 mg/5 mL 80mL; aluminum-mag hydrox-simeth [id number]/5mL 80mL oxycodone [OxyContin] 20 mg tablet,oral only,ext.rel.12 hr 20 mg PO Q12H levocetirizine 5 mg tablet 5 mg PO DIRECTED (DME) nebulizers [facility] See Rx Instructions .Route Rx Instructions: As directed epinephrine 0.3 mg/0.3 mL auto-injector 0.3 mg IM diazepam 5 mg tablet 5 mg PO BID orlistat 60 mg capsule 60 mg PO TID Qty: 30 0RF Rx Instructions: administer with meals Interventions: ED Discharge Assessment Last Done: 07/14/23 11:50 Discharge Date/Time: 07/14/23 11:51 Print Language: Hebrew
[2023-07-14 11:48] LABS: IDNOW Serial# 08D9AD1C; Strep A Nucleic Acid Invalid (Negative)
[2023-07-14 11:50] VITALS: BP 00/00; PULSE 0; RESP 16; TEMP -17.7; TEMP 0
== END 2023-07-14 11:51 | disposition home or self-care (01) ==
PROVIDERS: Physician Assistant; Emergency Provider Emergency Medicine; PCP Internal Medicine
DX: J39.2 Other diseases of pharynx (principal); T50.995A Adverse effect of other drugs, medicaments and biological substances, initial encounter; Y92.9 Unspecified place or not applicable; I10 Essential (primary) hypertension; J44.9 Chronic obstructive pulmonary disease, unspecified
CPT/HCPCS: 87651; 99282; 99283

== ENCOUNTER 2023-07-21 09:22 | Outpatient (AMB) | payer MEDICARE, MEDICAID, SELFPAY ==
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
[2023-07-21 09:30] VITALS: BP 136/84; PULSE 62; BMI 29.3
== END 2023-07-21 10:31 | disposition home or self-care (01) ==
PROVIDERS: PCP Internal Medicine; Visit Provider Internal Medicine Gastroenterology
DX: E66.3 Overweight (principal)
CPT/HCPCS: 99213

== ENCOUNTER → 2023-07-21 09:22 | Outpatient (BNVA) | payer MEDICARE, MEDICAID, SELFPAY | PROVIDERS: PCP Internal Medicine; Visit Provider Internal Medicine Gastroenterology | DX: E66.3 Overweight (principal); Z68.29 Body mass index [BMI] 29.0-29.9, adult | CPT/HCPCS: 99212 ==

== ENCOUNTER 2023-09-26 09:27 | Outpatient (REF) | payer MEDICARE, MEDICAID, SELFPAY ==
--- NOTE | ~2023-09-26 | US_ITS ---
EXAMINATION: US COMPLETE ABDOMEN WITH LIVER ELASTOGRAPHY CLINICAL INFORMATION: Abdominal pain. COMPARISON: CT chest 06/27/2023. TECHNIQUE: Real-time imaging of the abdominal viscera. Noninvasive ultrasound liver fibrosis assessment is performed using Reginald ElastPQ point quantification shear wave elastography (2D-SWE) with a C5-2 MHz transducer. Multiple elastography samples are obtained. FINDINGS: PANCREAS: The visualized pancreatic head and body are normal in appearance. The remainder of the pancreas is obscured from visualization by the overlying bowel gas. ABDOMINAL AORTA: The proximal, middle, and distal aortic segments are normal in caliber. INFERIOR VENA CAVA: Visualized portions are normal. LIVER: Liver size was not measured. Liver echogenicity is increased, consistent with hepatic steatosis. No focal lesion or intrahepatic biliary duct dilatation. Portal flow is towards the liver (hepatopetal). Shear wave liver elastography median stiffness is 1.3 m/s (reference: normal median stiffness is 1.3 m/s or less). IQR/median stiffness to assess sampling precision is 0.11 (reference: good quality data set is IQR/median stiffness of 0.15 or less). GALLBLADDER: Normal. The gallbladder is physiologically distended without evidence of stones, sludge, polyps, wall thickening or pericholecystic fluid. COMMON BILE DUCT: Normal in caliber measuring 0.32 cm in diameter. RIGHT KIDNEY: Normal. No hydronephrosis. No renal calculi. A benign 1.9 cm Bosniak class 2 septated renal cyst is noted which requires no additional imaging or follow up. No solid renal masses are seen. The kidney measures 10.6 cm in maximum dimension. LEFT KIDNEY: Normal. No hydronephrosis. No renal calculi. No renal masses. The kidney measures 10.3 cm in maximum dimension. SPLEEN: Normal. The spleen measures 10.5 cm in maximum dimension. FREE FLUID: None. US/US abdomen comp w elastography IMPRESSION: 1. Increased echogenicity of the liver, consistent with hepatic steatosis. 2. Liver elastography: Measurements are consistent with a high probability of normal liver stiffness. REFERENCE: Society of Radiologists in Ultrasound Liver Stiffness Thresholds (2020): LIVER STIFFNESS THRESHOLDS: *Liver Stiffness equal or less than 1.3 m/s: High probability of being normal. *Liver Stiffness less than 1.7 m/s: In the absence of other known clinical signs, rules out compensated advanced chronic liver disease. *Liver Stiffness 1.7-2.1 m/s: Suggestive of compensated advanced chronic liver disease but need further test for confirmation. *Liver Stiffness over 2.1 m/s: Rules in compensated advanced chronic liver disease. *Liver Stiffness over 2.4 m/s: Suggestive of clinically significant portal hypertension. QUALITY OF DATA SET: *IQR/Median value equal or less than 0.15 implies a quality data set. *IQR/Median value over 0.15 implies a poor quality data set. SIGNIFICANT CHANGE FROM PRIOR EXAM: Significant change if liver stiffness measurement is 10% or greater from prior exam. OTHER CONSIDERATIONS: The stage of liver fibrosis may be overestimated in the setting of acute hepatitis, liver inflammation, elevated liver function tests, hepatic vascular congestion, obstructive cholestasis, non-fasting state, and infiltrative diseases such as amyloidosis and lymphoma. In some patients with NAFLD, the liver stiffness thresholds for compensated advanced chronic liver disease may be lower. In causes other than viral hepatitis and NAFLD, liver stiffness thresholds are not well established.
== END 2023-09-26 09:28 | disposition home or self-care (01) ==
LOC: HO.US 09:27
PROVIDERS: PCP Internal Medicine; Visit Provider Internal Medicine Gastroenterology
DX: R10.9 Unspecified abdominal pain (principal)
CPT/HCPCS: 76700; 76981

== ENCOUNTER 2023-10-16 05:58 | Day surgery (SDC) | payer MEDICARE, MEDICAID, SELFPAY ==
--- NOTE | 2023-10-15 10:24 | HO.ANESPROP2 ---
Documented by User: Sharmila Rivera NP 10/15/23 10:26 HPI - Anesthesia Eval Consult details Narrative: 58yo M for Upper Endoscopy with Balloon Dilitation Chronic opioids Follows [facility] [place] pulmo. Stable with minimal inhaler use at 06/2023 office visit. Anesthesia Pre-Procedure Meds Is the patient on any of the following meds?: GLP1/DPP4 PMFSH Active Problems Active Problems: All Active Problems Overweight (BMI 25.0-29.9) (Acute) [place] infection (Acute) Nephrolithiasis (Acute) Abnormal EKG (Acute) Tubular adenoma (Acute) Lower abdominal pain (Acute) Neuropathy (Acute) Bladder outlet obstruction (Acute) Renal cyst (Acute) Flank pain (Acute) Chest pain (Acute) Nonalcoholic steatohepatitis (DELUNA) (Acute) Dysphagia (Acute) Bladder spasm (Acute) Palpitation (Acute) Urgency of micturition (Acute) Esophageal stricture (Acute) Pre-op evaluation (Acute) KATHLEEN on CPAP (Acute) Cervical radiculopathy (Acute) Hx of chest pain (Acute) High cholesterol (Acute) Hypertension (Acute) Shortness of breath (Acute) Hypoglycemia (Acute) Asthma-COPD overlap syndrome (Acute) Pulmonary nodules (Acute) GERD (gastroesophageal reflux disease) (Acute) COPD (chronic obstructive pulmonary disease) (Acute) Anxiety (Acute) Past Medical History Medical History Shortness of breath Hypoglycemia Asthma-COPD overlap syndrome Pulmonary nodules COPD (chronic obstructive pulmonary disease) Hx of renal calculi Asthma Hx of allergic rhinitis History of esophageal spasm Hx of chest pain Back pain Osteoarthritis of both hips Hx of goiter History of IBS History of colitis Chronic pain High cholesterol Hx of multiple pulmonary nodules Hypertension PTSD (post-traumatic stress disorder) Panic attacks Dysphagia GERD (gastroesophageal reflux disease) Anxiety Family History Family History Father No problems noted. Mother No problems noted. Family history of problems with anesthesia: Yes (PONV. pt doesn't want ketamine) Surgical History Surgical History History of surgery on arm H/O shoulder surgery H/O neck surgery Hx of endoscopy Hx of transurethral resection of prostate Hx of tonsillectomy Hx of esophagogastroduodenoscopy Hx of colonoscopy History of nasal surgery Hx of left inguinal hernia repair Hx of cervical discectomy History of Problems with Anesthesia: No Social History Social History Household Members: Other Household Members Other:: Mother Alcohol intake: never Patient Tobacco Use Status: Former Tobacco user Tobacco use type: Cigarette Years Smoked: 30 Second Hand Smoke Exposure: No Are you DNR?: No Advance Directives: No Advance Directives Information Provided: Yes Nutrition Risks: No Nutritional Risk Current occupational status: unemployed Meds Allergies Allergy/AdvReac Type Severity Reaction Status Date / Time metronidazole [From FLAGYL] Allergy Severe RASH Verified 10/16/23 06:31 tree and shrub pollen [TREE] Allergy Severe Rash Verified 10/16/23 06:31 dexamethasone AdvReac Severe palpitatiio Verified 10/16/23 06:31 ns fluticasone furoate AdvReac Severe palpitations, Verified 10/16/23 06:31 [Breo Ellipta] high BP umeclidinium AdvReac Severe palpitation Verified 10/16/23 06:31 [Incruse Ellipta] s Bee sting Allergy Severe Hives/Difficulty Uncoded 10/16/23 06:31 breathing Clindamycin HCl Allergy Severe Hives Uncoded 10/16/23 06:31 ENVIRONMENTAL Allergy Severe Rash Uncoded 10/16/23 06:31 Home Medications ?Medication ?Instructions ?Recorded ?Confirmed ?Last Taken ?Type levocetirizine 5 mg tablet 5 mg PO DIRECTED 12/23/19 10/16/23 Unknown History cholecalciferol (vitamin D3) 50 05/09/22 01/23/23 Unknown History mcg (2,000 unit) capsule (Vitamin D3) levalbuterol tartrate 45 inhalation 05/09/22 01/23/23 Unknown History mcg/actuation aerosol inhaler nebulizers 10/31/22 01/23/23 Unknown History diazepam 5 mg tablet 5 mg PO BID 11/26/22 10/16/23 Unknown History epinephrine 0.3 mg/0.3 mL 0.3 mg IM anaphylaxis 11/26/22 01/23/23 Unknown History injection, auto-injector oxycodone 20 mg tablet,crush 20 mg PO Q12H 12/19/22 10/16/23 10/16/23 History resistant,extended release 12 hr (OxyContin) lactulose 10 gram/15 mL oral PO 07/21/23 Unknown History solution multivitamin with minerals-ferrous 1 tab PO DAILY 07/21/23 10/16/23 Unknown History fumarate 15 mg iron tablet oxycodone 20 mg tablet 20 mg PO TID PRN Pain (Scale Score 07/21/23 10/16/23 Unknown History 7-10) Assessment and Plan Assessment Anesthesia Assessment: Chart Reviewed Final Anesthetic Review Family History of Problems with Anesthesia: Yes (PONV. pt doesn't want ketamine) History of Problems with Anesthesia: No Documented by User: Savannah Zendejas MD 10/16/23 07:36 [facility] Past Medical History Medical History Shortness of breath Hypoglycemia Asthma-COPD overlap syndrome Pulmonary nodules COPD (chronic obstructive pulmonary disease) Hx of renal calculi Asthma Hx of allergic rhinitis History of esophageal spasm Hx of chest pain Back pain Osteoarthritis of both hips Hx of goiter History of IBS History of colitis Chronic pain High cholesterol Hx of multiple pulmonary nodules Hypertension PTSD (post-traumatic stress disorder) Panic attacks Dysphagia GERD (gastroesophageal reflux disease) Anxiety Family History Family History Father No problems noted. Mother No problems noted. Surgical History Surgical History History of surgery on arm H/O shoulder surgery H/O neck surgery Hx of endoscopy Hx of transurethral resection of prostate Hx of tonsillectomy Hx of esophagogastroduodenoscopy Hx of colonoscopy History of nasal surgery Hx of left inguinal hernia repair Hx of cervical discectomy Social History Social History Household Members: Other Household Members Other:: Mother Alcohol intake: never Patient Tobacco Use Status: Former Tobacco user Tobacco use type: Cigarette Years Smoked: 30 Second Hand Smoke Exposure: No Are you DNR?: No Advance Directives: No Advance Directives Information Provided: Yes Nutrition Risks: No Nutritional Risk Current occupational status: unemployed Meds Allergies Allergy/AdvReac Type Severity Reaction Status Date / Time metronidazole [From FLAGYL] Allergy Severe RASH Verified 10/16/23 06:31 tree and shrub pollen [TREE] Allergy Severe Rash Verified 10/16/23 06:31 dexamethasone AdvReac Severe palpitatiio Verified 10/16/23 06:31 ns fluticasone furoate AdvReac Severe palpitations, Verified 10/16/23 06:31 [Breo Ellipta] high BP umeclidinium AdvReac Severe palpitation Verified 10/16/23 06:31 [Incruse Ellipta] s Bee sting Allergy Severe Hives/Difficulty Uncoded 10/16/23 06:31 breathing Clindamycin HCl Allergy Severe Hives Uncoded 10/16/23 06:31 ENVIRONMENTAL Allergy Severe Rash Uncoded 10/16/23 06:31 Home Medications ?Medication ?Instructions ?Recorded ?Confirmed ?Last Taken ?Type levocetirizine 5 mg tablet 5 mg PO DIRECTED 12/23/19 10/16/23 Unknown History cholecalciferol (vitamin D3) 50 05/09/22 01/23/23 Unknown History mcg (2,000 unit) capsule (Vitamin D3) levalbuterol tartrate 45 inhalation 05/09/22 01/23/23 Unknown History mcg/actuation aerosol inhaler nebulizers 10/31/22 01/23/23 Unknown History diazepam 5 mg tablet 5 mg PO BID 11/26/22 10/16/23 Unknown History epinephrine 0.3 mg/0.3 mL 0.3 mg IM anaphylaxis 11/26/22 01/23/23 Unknown History injection, auto-injector oxycodone 20 mg tablet,crush 20 mg PO Q12H 12/19/22 10/16/23 10/16/23 History resistant,extended release 12 hr (OxyContin) lactulose 10 gram/15 mL oral PO 07/21/23 Unknown History solution multivitamin with minerals-ferrous 1 tab PO DAILY 07/21/23 10/16/23 Unknown History fumarate 15 mg iron tablet oxycodone 20 mg tablet 20 mg PO TID PRN Pain (Scale Score 07/21/23 10/16/23 Unknown History 7-10) Exam Airway Mallampati Class: II TM Dist: >3cm Neck ROM: Full Heart: rrr Lungs: cta Assessment and Plan Assessment Anesthesia Assessment: Anesthesia Plan Discussed Final Anesthetic Review NPO: Yes ASA Class: III Final Preanesthetic Review: No Changes in Pt Med Stat, Meds/Allgs Chart Reviewed, Consent Obtained/Reviewed and Anes Risks/Benef Reviewed Patient Risk: Intermediate Procedure Risk: Low Anesthetic Plan Anesthetic Plan: MAC: Disposition: Standard PACU
[2023-10-16 06:29] VITALS: BMI 29.8
--- NOTE | 2023-10-16 06:38 | P.HPSUR_ITS ---
Pre-Procedural Eval Section A - 24 Hr Update-Section A only Date of Service: 10/16/23 Section B - Complete if H&P > 30 days Chief Complaint: Achalasia of cardia Relevant Family History (Specify if Yes): No Relevant Social History: None Present Medications: see Short Stay Collaborative assessment Medical History: Significant History (Shortness of breath Hypoglycemia Asthma- COPD overlap syndrome Pulmonary nodules COPD (chronic obstructive pulmonary disease) Hx of renal calculi Asthma Hx of allergic rhinitis History of esophageal spasm Hx of chest pain Back pain Osteoarthritis of both hips Hx of goiter History of IBS History of co) History of Previous Operations: Relevant previous surgery/procedure and date(s) (History of surgery on arm H/O shoulder surgery H/O neck surgery Hx of endoscopy Hx of transurethral resection of prostate Hx of tonsillectomy Hx of esophagogastroduodenoscopy Hx of colonoscopy History of nasal surgery Hx of left inguinal hernia repair Hx of cervical discectomy) Allergies: Allergies Allergy/AdvReac Type Severity Reaction Status Date / Time metronidazole [From FLAGYL] Allergy Severe RASH Verified 10/16/23 06:31 tree and shrub pollen [TREE] Allergy Severe Rash Verified 10/16/23 06:31 dexamethasone AdvReac Severe palpitatiio Verified 10/16/23 06:31 ns fluticasone furoate AdvReac Severe palpitations, Verified 10/16/23 06:31 [Breo Ellipta] high BP umeclidinium AdvReac Severe palpitation Verified 10/16/23 06:31 [Incruse Ellipta] s Bee sting Allergy Severe Hives/Difficulty Uncoded 10/16/23 06:31 breathing Clindamycin HCl Allergy Severe Hives Uncoded 10/16/23 06:31 ENVIRONMENTAL Allergy Severe Rash Uncoded 10/16/23 06:31 Review of Systems Sugical H&P ROS: Negative: Constitution, Cardiovascular, Respiratory, Neurological, Psychiatric, Hem-Onc, Allergic/Immunologic, Gastrointestinal, Genitourinary, Musculoskeletal, Integumentary, Endocrine and Eyes/Ears/Nose/Throat Exam Surgical H&P Exam: Normal: HEENT, Normal: Heart, Normal: Lungs, Normal: Extremities, Normal: Abdomen, Normal: Skin and Normal: Neurological Plan Diagnosis/Plan: Unchanged I have reviewed the history and physical and performed a pertinent physical examination on my patient. No changes have occurred unless specified. EGD with dilation due to dysphagia. Time Spent With Patient Time: Total time managing care of this patient today ____ minutes.
[2023-10-16] MEDS: Lactated Ringers 1,000 ML 100 ML IVCONT (06:40)
[2023-10-16 06:48] VITALS: BP 133/82; PULSE 62; RESP 18; TEMP 36.5; O2SAT 98
--- NOTE | 2023-10-16 07:39 | W.PM.OPN ---
Operative Note Operative Note Date of Service: 10/16/23 Narrative: Procedure Description: EGD Indication: dysphagia Anesthesia: MAC FLEXIBLE TRANSORAL UPPER GASTROINTESTINAL ENDOSCOPY UPPER ENDOSCOPY Consent: Indications for the procedure and potential complications of bleeding, perforation, reaction to medications and missed diagnosis were discussed with the patient and informed consent was obtained. Instrument: Olympus GIF H 190 J mid size upper endoscope Monitoring: Vital signs and clinical assessment, continuous EKG monitoring, Pulse oximetry, Carbon Dioxide monitoring and blood pressure monitoring were done throughout the procedure. Procedure: The patient was placed in the left lateral decubitis position and pre-procedure medications were administered and a bite block was placed. The endoscope was inserted into the mouth and advanced under direct vision to the third part of duodenum. A careful inspection was made as the upper endoscope was withdrawn including a retroflexed examination of the proximal stomach; Findings and interventions are described below. Findings: Larynx:normal Esophagus: GE junction at 40 cm, diaphragm hiatus at 40 cm, dilation done with 18 mm bougie using savary wire with superficial tear noted in the upper esophagus. Stomach: Normal mucosa. Grade 2 flap valve on retroflexed examination of the cardia. Partial wrap from prior fundoplication noted, scattered fundic gland polyps Duodenum: Normal bulb and descending duodenum, Intervention: Savary dilation using wire, biopsy Impression/Findings: upper esophageal stricture s/p savary fundic gland polyps PLAN: magic mouthwash for 1 week cont PPI
[2023-10-16 08:02] VITALS: BP 113/78; PULSE 77; RESP 14; TEMP 36.8; O2SAT 98
[2023-10-16] MEDS: Mag&Al/Sim/Diphenhyd/Lidocaine 10 ML ORAL.SUSP PO (08:10)
[2023-10-16 08:17] VITALS: BP 118/73; PULSE 57; RESP 14; O2SAT 95
== END 2023-10-16 08:53 | disposition home or self-care (01) ==
PROVIDERS: PCP Internal Medicine; Visit Provider Internal Medicine Gastroenterology
PROC: (CPT 43248; principal; 2023-10-16 07:30)
DX: K22.0 Achalasia of cardia (principal); R13.10 Dysphagia, unspecified; K21.9 Gastro-esophageal reflux disease without esophagitis; K31.7 Polyp of stomach and duodenum; K44.9 Diaphragmatic hernia without obstruction or gangrene; E78.00 Pure hypercholesterolemia, unspecified; J44.9 Chronic obstructive pulmonary disease, unspecified; I10 Essential (primary) hypertension; G47.33 Obstructive sleep apnea (adult) (pediatric); F43.10 Post-traumatic stress disorder, unspecified; F41.0 Panic disorder [episodic paroxysmal anxiety]; F41.9 Anxiety disorder, unspecified; Z87.442 Personal history of urinary calculi; Z79.899 Other long term (current) drug therapy; Z88.8 Allergy status to other drugs, medicaments and biological substances; Z88.1 Allergy status to other antibiotic agents; E66.3 Overweight; Z68.29 Body mass index [BMI] 29.0-29.9, adult; Z98.890 Other specified postprocedural states; Z56.0 Unemployment, unspecified; Z87.891 Personal history of nicotine dependence
CPT/HCPCS: 43248; C1769; J2250; J2704

== ENCOUNTER → 2023-10-16 05:58 | Outpatient (BNV) | payer MEDICARE, MEDICAID, SELFPAY | PROVIDERS: PCP Internal Medicine; Visit Provider Internal Medicine Gastroenterology | DX: R13.10 Dysphagia, unspecified (principal); K31.7 Polyp of stomach and duodenum | CPT/HCPCS: 43248 ==

== ENCOUNTER 2023-10-20 09:33 | Outpatient (REF) | payer MEDICARE, MEDICAID, SELFPAY ==
[2023-10-20 09:50] LABS: MANUAL DIFF FLAG NO
[2023-10-20 10:39] LABS: Basophils Percent Auto 0.6 % (0-2); Eosinophils Absolute Auto 0.3 X10*3/uL (0.0-0.4); Eosinophils Percent Auto 4.3 % (0-4); Hematocrit 43.1 % (42.0-52.0); Hemoglobin 14.2 g/dl (14.0-18.0); Imm Gran Abs Auto 0.03 X10*3/uL (0.00-0.03); Imm Gran Pct Auto 0.5 % (0.0-0.4); Lymphocytes Absolute Auto 1.8 X10*3/uL (1.2-4.9); Lymphocytes Percent Auto 29.2 % (20-40); Mean Corpuscular HGB Conc 32.9 g/dl (31.0-36.0); Mean Corpuscular Hemoglobin 29.7 pg (27.0-33.0); Mean Corpuscular Volume 90.2 fL (80.0-98.0); Mean Platelet Volume 10.2 fL (9.4-12.4); Monocytes Absolute Auto 0.7 X10*3/uL (0.1-1.2); Monocytes Percent Auto 10.6 % (2-11); Neutrophils Absolute Auto 3.5 x10*3/uL (2.0-8.3); Neutrophils Percent Auto 54.8 % (45-73); Platelet Count 262 X10*3/uL (160-400); Red Blood Count 4.78 X10*6/uL (4.60-5.80); Red Cell Distribution Width 13.1 % (11.0-16.0); White Blood Count 6.3 X10*3/uL (4.8-10.8)
[2023-10-20 10:47] LABS: Appearance Urine Clear; Color Urine Yellow; Glucose Urine UA Negative (Negative); Leukocyte Esterase Urine Negative (Negative); Nitrite Urine Negative (Negative); PH 6.5 (5.0-9.0); UMIC TRIGGER UACC YES; Urine Blood Trace (Negative); Urine Ketones Negative (Negative); Urine Protein Negative (Neg-Trace)
[2023-10-20 10:54] LABS: Bacteria Urine None Seen (None Seen); Hyaline Casts Urine 0-2 /LPF (0-2); Squamous Epithelial Cell Urine 0-2 /HPF (0-2); WBC Urine 0-5 /HPF (0-5)
[2023-10-20 11:22] LABS: Erythrocyte Sedimentation Rate 7 MM/HR (0-15)
[2023-10-20 11:29] LABS: Alanine Aminotransferase 60 U/L (0-40); Albumin Level 4.4 g/dL (3.5-5.0); Alkaline Phosphatase 88 U/L (39-117); Anion Gap 11 (12-20); Aspartate Amino Transferase 21 U/L (5-37); Bilirubin Total 0.4 mg/dL (0.0-1.0); Blood Urea Nitrogen 10 mg/dL (9-16); C Reactive Protein 0.29 mg/dL (< or = 0.50); Calcium 9.3 mg/dL (8.4-10.2); Carbon Dioxide 28 mmol/L (22-29); Chloride 108 mmol/L (96-108); Estimated Glomerular Filt Rate > 60; Glucose Random 99 mg/dL (60-115); Potassium 3.9 mmol/L (3.3-5.1); Sodium 143 mmol/L (135-145); Total Protein 7.1 g/dL (6.5-8.0)
== END 2023-10-20 09:34 | disposition home or self-care (01) ==
LOC: HO.LAB 09:33
PROVIDERS: PCP Internal Medicine; Visit Provider Internal Medicine Gastroenterology
DX: N20.0 Calculus of kidney (principal); K75.81 Nonalcoholic steatohepatitis (NASH)
CPT/HCPCS: 36415; 80053; 81001; 85025; 85652; 86140

== ENCOUNTER 2023-10-22 12:47 | Outpatient (REF) | payer MEDICARE, MEDICAID, SELFPAY ==
--- NOTE | ~2023-10-22 | US_ITS ---
EXAMINATION: US RETROPERITONEAL LIMITED (RENAL ONLY) CLINICAL INFORMATION: Calculus of kidney. COMPARISON: US abdomen complete with liver elastography 09/26/2023. Renal ultrasound 01/17/2023. X-ray abdomen 02/06/2021 and 03/19/2019. CT abdomen and pelvis 10/25/2018. MRI abdomen without contrast 06/07/2016. TECHNIQUE: Real-time imaging of the kidneys. Limited visualization due to bowel gas. FINDINGS: RIGHT KIDNEY: 10.5 x 4.0 x 5.7 cm (SAG x AP x TRV). No hydronephrosis. No renal calculi. Renal cortical thickness is normal. Limited visualization. Redemonstration of 1.9 cm cyst with fine septations lower pole. There is no specific indication for additional imaging. Limited visualization. LEFT KIDNEY: 11.4 x 5.1 x 5.9 cm (SAG x AP x TRV). No hydronephrosis. No renal calculi. Renal cortical thickness is normal. Limited visualization. US/US renal BI IMPRESSION: No hydronephrosis. No renal calculi.
== END 2023-10-22 12:48 | disposition home or self-care (01) ==
LOC: HO.HMGCX 12:47
PROVIDERS: PCP Internal Medicine; Visit Provider Urology
DX: N20.0 Calculus of kidney (principal)
CPT/HCPCS: 76775

== ENCOUNTER 2023-11-07 10:40 | Outpatient (AMB) | payer MEDICARE, MEDICAID, SELFPAY ==
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
[2023-11-07 10:49] VITALS: BP 108/64; PULSE 66; O2SAT 97; BMI 30.3
== END 2023-11-07 11:28 | disposition home or self-care (01) ==
PROVIDERS: PCP Internal Medicine; Visit Provider Internal Medicine Gastroenterology
DX: K21.9 Gastro-esophageal reflux disease without esophagitis (principal)
CPT/HCPCS: 99213

== ENCOUNTER → 2023-11-07 10:40 | Outpatient (BNVA) | payer MEDICARE, MEDICAID, SELFPAY | PROVIDERS: PCP Internal Medicine; Visit Provider Internal Medicine Gastroenterology | DX: K21.9 Gastro-esophageal reflux disease without esophagitis (principal) | CPT/HCPCS: 99212 ==

== ENCOUNTER 2023-12-02 08:38 | Outpatient (AMB) | payer MEDICARE, MEDICAID, SELFPAY ==
[2023-12-02 08:43] VITALS: BP 114/70; PULSE 57; BMI 29.9
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
== END 2023-12-02 09:12 | disposition home or self-care (01) ==
PROVIDERS: PCP Internal Medicine; Visit Provider Nurse Practitioner Family
DX: R94.31 Abnormal electrocardiogram [ECG] [EKG] (principal); Z87.898 Personal history of other specified conditions; I10 Essential (primary) hypertension; E78.00 Pure hypercholesterolemia, unspecified
CPT/HCPCS: 93010; 99213

== ENCOUNTER → 2023-12-02 08:38 | Outpatient (BNVA) | payer MEDICARE, MEDICAID, SELFPAY | PROVIDERS: PCP Internal Medicine; Visit Provider Nurse Practitioner Family | DX: R94.31 Abnormal electrocardiogram [ECG] [EKG] (principal); I10 Essential (primary) hypertension; E78.00 Pure hypercholesterolemia, unspecified; Z87.898 Personal history of other specified conditions | CPT/HCPCS: 93005; 99212 ==

== ENCOUNTER 2024-01-17 08:48 | Outpatient (REF) | payer MEDICARE, MEDICAID, SELFPAY ==
--- NOTE | 2024-01-17 09:00 | PFT_ITS ---
Flows: FEV1: 74 % of predicted at 2.51 L FVC: 92 % of predicted at 3.94 L FEV1/FVC: 64 % Bronchodilator response: Absent Volumes: Total lung capacity: 82 % of predicted at 5.36 L Residual volume: 86 % of predicted at 1.62 L Slow vital capacity: 84 % of predicted at 0.99 L Expiratory reserve volume: 79 % of predicted at 3.74 L Diffusion capacity: Mildly decreased, corrects to normal after adjustment for alveolar ventilation. Impression: Moderate obstructive ventilatory defect with no bronchodilator response. Decreased diffusion capacity suggests emphysema. MTDD
[2024-01-17 15:27] VITALS: PULSE 80; RESP 16; O2SAT 98
== END 2024-01-17 08:49 | disposition home or self-care (01) ==
LOC: HO.RESP 08:48
PROVIDERS: PCP Internal Medicine; Visit Provider Hospitalist
DX: J44.9 Chronic obstructive pulmonary disease, unspecified (principal)
CPT/HCPCS: 94010; 94640; 94727; 94729

== ENCOUNTER 2024-01-27 09:43 | Outpatient (AMB) | payer MEDICARE, MEDICAID, SELFPAY ==
--- NOTE | 2024-01-27 09:51 | MHC.OFFVIS ---
Intake Visit Reasons: 1y/US(set) Intake Note: Patient Is Present for Ultrasound follow up Urology Med: None Antibiotic Allergy: Clindamycin Blood Thinner: None Renal Ultrasound:10/22/2023 Last PSA: 05/06/2022 0.19 Vice President Of Advertising Required: No Accompanied by: Self / Same As Patient Allergies metronidazole [From FLAGYL] Allergy (Severe, Verified 01/27/24 09:52) RASH tree and shrub pollen [TREE] Allergy (Severe, Verified 01/27/24 09:52) Rash dexamethasone Adverse Reaction (Severe, Verified 01/27/24 09:52) palpitatiions fluticasone furoate [Breo Ellipta] Adverse Reaction (Severe, Verified 01/27/24 09:52) palpitations, high BP umeclidinium [Incruse Ellipta] Adverse Reaction (Severe, Verified 01/27/24 09:52) palpitations Bee sting Allergy (Severe, Uncoded 01/27/24 09:52) Hives/Difficulty breathing Clindamycin HCl Allergy (Severe, Uncoded 01/27/24 09:52) Hives ENVIRONMENTAL Allergy (Severe, Uncoded 01/27/24 09:52) Rash HPI Comments Details: Jv VELASQUEZ is a very pleasant male. They are a patient of Dr Troy. He is seen for the following urologic conditions - overactive bladder - nephrolithiasis - renal cyst No evidence of stones Effective urination Good stream No stone seen from 90 90 P.r.n. follow-up Nephrolithiasis/Urolithiasis: They are here for further evaluation of nephrolithiasis. Prior imaging includes 04/12 a renal ultrasound, 2.5 cm right Bosniak 1 cyst no stones 12/11 , a renal ultrasound, showing no evidence of stones, cyst stable - 05/14 renal ultrasound to 2.5 cm cyst on the right - 10/12 renal ultrasound 2.5cm cyst on right - 02/14 renal ultrasound stable cyst Current therapeutic plan will be to continue with imaging surveillance. Lower Urinary Tract Symptoms: Current visit is for Improved flow after TUIP. Did respond to myrbetriq - not covered Prior treatments include 05/13 TUIP. Prostate Symptom Score 12/09 , Mild (0-8), Bother 2. Symptoms include 11/08 incomplete emptying, weak stream, and are progressing 12/09 , weak stream, and are stable. Prior Prostate Score mild. Testing at next visit will include bladder scan. Treatment plan continue with current medications PFSH Medical History Shortness of breath Hypoglycemia Asthma-COPD overlap syndrome Pulmonary nodules COPD (chronic obstructive pulmonary disease) Hx of renal calculi Asthma Hx of allergic rhinitis History of esophageal spasm Hx of chest pain Back pain Osteoarthritis of both hips Hx of goiter History of IBS History of colitis Chronic pain High cholesterol Hx of multiple pulmonary nodules Hypertension PTSD (post-traumatic stress disorder) Panic attacks Dysphagia GERD (gastroesophageal reflux disease) Anxiety Surgical History History of surgery on arm H/O shoulder surgery H/O neck surgery Hx of endoscopy Hx of transurethral resection of prostate Hx of tonsillectomy Hx of esophagogastroduodenoscopy Hx of colonoscopy History of nasal surgery Hx of left inguinal hernia repair Hx of cervical discectomy Family History Father No problems noted. Mother No problems noted. Social History Household Members: Other Household Members Other:: Mother Alcohol intake: never Patient Tobacco Use Status: Former Tobacco user Tobacco use type: Cigarette Years Smoked: 30 Second Hand Smoke Exposure: No Current occupational status: unemployed Review of Systems Const Denies chills and Denies fever(s) Card Reports no additional complaints and Denies syncope Resp Denies cough GI Denies abdominal pain and Denies heartburn Reports as per HPI and Denies change in libido Neuro Denies syncope Psych Denies change in libido Endo Denies change in libido Physical Exam Const General: cooperative, healthy appearing, comfortable and no acute distress Orientation/consciousness: patient oriented x3 HEENT Face and sinus: Yes normal facial exam Mouth: moist mucous membranes Neck Neck: Yes normal visual inspection, Yes full ROM and Yes trachea midline Chest Chest palpation & inspection: normal inspection of the chest Resp Effort & Inspection: normal respiratory effort, able to speak in complete sentences and no respiratory distress GI Inspection: Yes normal to inspection Back/Spine/Pelvis Cervical Spine: normal cervical lordosis Thoracic/Lumbar Spine: thoracic and lumbar spine normal to inspection Skin General skin exam: no rashes or lesions noted Neuro General: patient oriented x3, gait normal, tone normal and moves all extremities Extrem General: Yes normal to inspection and Yes capillary refill normal Assessment & Plan Assessment & Plan (1) Nephrolithiasis: Code(s): N20.0 - Calculus of kidney Category: Medical (2) Bladder outlet obstruction: Code(s): N32.0 - Bladder-neck obstruction Category: Medical Plan P.r.n. follow-up Patient Instructions: Imaging studies, laboratory and physical exam results were discussed and reviewed in detail. No major barriers to patient understanding were identified. An opportunity to ask questions regarding the treatment plan was provided. All questions were answered. The patient expressed understanding and agreement with the above treatment plan. The patient is aware they should contact our office by phone for worsening of their current condition or the appearance of new urologic symptoms. Compliance is encouraged with any medications and followup testing that is ordered. It is a privilege to participate in the urologic care of your patient. If you have any questions or concerns regarding treatment for the above conditions, or other urologic issues, please do not hesitate to contact me. The office telephone contact is [phone]. This note is constructed using voice recognition software. While every effort has been made to ensure accuracy dining room helper errors may have been included. Yours sincerely, Dr Liborio Nguyễn MD, [facility] - Urology Providers of Expert, Compassionate Care for the Genitourinary System Coding Level of Care Code Est Pt Level 4 (26948) Diagnoses Nephrolithiasis N20.0 Bladder outlet obstruction N32.0
== END 2024-01-27 10:29 | disposition home or self-care (01) ==
LOC: HO.HUSH 09:43
PROVIDERS: PCP Internal Medicine; Visit Provider Urology
DX: N20.0 Calculus of kidney (principal); N32.0 Bladder-neck obstruction
CPT/HCPCS: 99214

== ENCOUNTER → 2024-01-27 09:43 | Outpatient (BNVA) | payer MEDICARE, MEDICAID, SELFPAY | PROVIDERS: PCP Internal Medicine; Visit Provider Urology | DX: N32.0 Bladder-neck obstruction (principal); N20.0 Calculus of kidney | CPT/HCPCS: 99212 ==

== ENCOUNTER 2024-01-30 09:29 | Outpatient (AMB) | payer MEDICARE, MEDICAID, SELFPAY ==
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
[2024-01-30 09:45] VITALS: BP 126/64; PULSE 75; O2SAT 96; BMI 29.5
== END 2024-01-30 10:08 | disposition home or self-care (01) ==
PROVIDERS: PCP Internal Medicine; Visit Provider Hospitalist
DX: J44.9 Chronic obstructive pulmonary disease, unspecified (principal); R91.8 Other nonspecific abnormal finding of lung field; K21.9 Gastro-esophageal reflux disease without esophagitis
CPT/HCPCS: 99214

== ENCOUNTER → 2024-01-30 09:29 | Outpatient (BNVA) | payer MEDICARE, MEDICAID, SELFPAY | PROVIDERS: PCP Internal Medicine; Visit Provider Hospitalist | DX: J44.9 Chronic obstructive pulmonary disease, unspecified (principal); R91.8 Other nonspecific abnormal finding of lung field; K21.9 Gastro-esophageal reflux disease without esophagitis | CPT/HCPCS: 99212 ==

== ENCOUNTER 2024-02-17 08:32 | Outpatient (REF) | payer MEDICARE, MEDICAID, SELFPAY ==
--- NOTE | ~2024-02-17 | FL_ITS ---
EXAMINATION: XR FLUOROSCOPY UPPER GI WITH AIR CLINICAL INFORMATION: Dysphagia. Abnormal sensation in upper esophagus. COMPARISON: Barium swallow 2022, 2020, 2018 TECHNIQUE: Fluoroscopic air contrast upper GI examination was performed utilizing standard techniques with thin and thick barium and effervescent granules. Numerous spot images were obtained. FINDINGS: Lateral cine images of the oropharynx and hypopharynx demonstrate normal swallow mechanism with normal epiglottic inversion and soft palate elevation. No tracheal penetration, glottic or subglottic aspiration identified. No nasopharyngeal reflux present. Hypopharyngeal structures appear normal without evidence of mass or diverticulum. There was no significant cricopharyngeal achalasia. There is an anterior bridging osteophyte of C4-C5 that is causing mild posterior indentation of the cervical esophagus. This is of uncertain but doubtful significance. Dual and single contrast images of the esophagus demonstrate normal caliber, contour, and mucosal pattern. No evidence of stricture, mass, or ulcerations identified. Esophageal spasms are noted in the distal esophagus. The patient swallowed the barium tablet without any difficulty. The tablet passed freely into the stomach without any evidence of stasis. A small type I hiatal hernia is present. Mild gastroesophageal reflux is observed in the distal esophagus. Dual contrast and single contrast images of the stomach demonstrated a normal contour. There are multiple small well-circumscribed filling defects in the body and antrum of the stomach that likely represents small hyperplastic polyps. And no masses or ulcerations are seen. Contrast freely passed into the gastric antrum and duodenal bulb without delay. Single and air-contrast images of the duodenal bulb demonstrate no abnormality. The duodenal sweep has a normal appearance, course, and mucosal fold appearance. The imaged proximal jejunum has a normal fold pattern and caliber. FLUOROSCOPY TIME: 3 minutes 14 seconds Number of Spot Images: 4 Number of Cine: 17 DOSE AREA PRODUCT: 1759 uGy-m2 (microgray-meter squared) FL/FL barium swallow with air IMPRESSION: 1. Anterior bridging osteophyte at C4-C5 that causes mild posterior indentation of the cervical esophagus. 2. Episodic esophageal spasm is noted in the distal esophagus. Barium tablet passed nonetheless without difficulty. 3. Small type I hiatal hernia with mild gaseous esophageal reflux. 4. Multiple small well-circumscribed filling defects in the body and antrum of the stomach that likely represent small hyperplastic polyps. Recommend correlation with EGD. This procedure was performed by Solo Benton PA-C, and supervised by Dr. Day Electronically signed by: Neri Day MD 02/17/2024 04:38 PM [facility]
== END 2024-02-17 08:33 | disposition home or self-care (01) ==
LOC: HO.XRAY 08:32
PROVIDERS: PCP Internal Medicine; Visit Provider Internal Medicine Gastroenterology
DX: R13.10 Dysphagia, unspecified (principal)
CPT/HCPCS: 74221

== ENCOUNTER → 2024-02-17 08:34 | Outpatient (BNV) | payer MEDICARE, MEDICAID, SELFPAY | PROVIDERS: PCP Internal Medicine; Visit Provider Physician Assistant Surgical | DX: K21.9 Gastro-esophageal reflux disease without esophagitis (principal); K31.7 Polyp of stomach and duodenum | CPT/HCPCS: 74246 ==

== ENCOUNTER 2024-03-03 09:26 | Day surgery (SDC) | payer MEDICARE, MEDICAID, SELFPAY ==
[2024-03-03 10:35] VITALS: BMI 27.4
--- NOTE | 2024-03-03 10:42 | P.CONAN_ITS ---
[facility] Active Problems Active Problems: All Active Problems Overweight (BMI 25.0-29.9) (Acute) [place] infection (Acute) Nephrolithiasis (Acute) Abnormal EKG (Acute) Tubular adenoma (Acute) Lower abdominal pain (Acute) Neuropathy (Acute) Bladder outlet obstruction (Acute) Renal cyst (Acute) Flank pain (Acute) Chest pain (Acute) Nonalcoholic steatohepatitis (DELUNA) (Acute) Dysphagia (Acute) Bladder spasm (Acute) Palpitation (Acute) Urgency of micturition (Acute) Esophageal stricture (Acute) Pre-op evaluation (Acute) KATHLEEN on CPAP (Acute) Cervical radiculopathy (Acute) Hx of chest pain (Acute) High cholesterol (Acute) Hypertension (Acute) Shortness of breath (Acute) Hypoglycemia (Acute) Asthma-COPD overlap syndrome (Acute) Pulmonary nodules (Acute) GERD (gastroesophageal reflux disease) (Acute) COPD (chronic obstructive pulmonary disease) (Acute) Anxiety (Acute) Past Medical History Medical History Shortness of breath Hypoglycemia Asthma-COPD overlap syndrome Pulmonary nodules COPD (chronic obstructive pulmonary disease) Hx of renal calculi Asthma Hx of allergic rhinitis History of esophageal spasm Hx of chest pain Back pain Osteoarthritis of both hips Hx of goiter History of IBS History of colitis Chronic pain High cholesterol Hx of multiple pulmonary nodules Hypertension PTSD (post-traumatic stress disorder) Panic attacks Dysphagia GERD (gastroesophageal reflux disease) Anxiety Functional capacity: independent ambulation Family History Family History Father No problems noted. Mother No problems noted. Family history of problems with anesthesia: Yes (PONV. pt doesn't want ketamine) Surgical History Surgical History History of surgery on arm H/O shoulder surgery H/O neck surgery Hx of endoscopy Hx of transurethral resection of prostate Hx of tonsillectomy Hx of esophagogastroduodenoscopy Hx of colonoscopy History of nasal surgery Hx of left inguinal hernia repair Hx of cervical discectomy History of Problems with Anesthesia: No Social History Social History Household Members: Other Household Members Other:: Mother Alcohol intake: never Patient Tobacco Use Status: Former Tobacco user Tobacco use type: Cigarette Years Smoked: 30 Second Hand Smoke Exposure: No Use of substances other than those prescribed or required for medical reasons: No Are you DNR?: No Advance Directives: No Advance Directives Information Provided: Yes Current occupational status: unemployed Meds Allergies Allergy/AdvReac Type Severity Reaction Status Date / Time metronidazole [From FLAGYL] Allergy Severe RASH Verified 03/03/24 10:41 tree and shrub pollen [TREE] Allergy Severe Rash Verified 03/03/24 10:41 dexamethasone AdvReac Severe palpitatiio Verified 03/03/24 10:41 ns fluticasone furoate AdvReac Severe palpitations, Verified 03/03/24 10:41 [Breo Ellipta] high BP umeclidinium AdvReac Severe palpitation Verified 03/03/24 10:41 [Incruse Ellipta] s Bee sting Allergy Severe Hives/Difficulty Uncoded 01/30/24 09:48 breathing Clindamycin HCl Allergy Severe Hives Uncoded 01/30/24 09:48 ENVIRONMENTAL Allergy Severe Rash Uncoded 01/30/24 09:48 Home Medications ?Medication ?Instructions ?Recorded ?Confirmed ?Last Taken ?Type levocetirizine 5 mg tablet 5 mg PO DIRECTED 12/23/19 12/02/23 Unknown History cholecalciferol (vitamin D3) 50 05/09/22 01/30/24 Unknown History mcg (2,000 unit) capsule (Vitamin D3) levalbuterol tartrate 45 inhalation 05/09/22 12/02/23 Unknown History mcg/actuation aerosol inhaler nebulizers 10/31/22 12/02/23 Unknown History diazepam 5 mg tablet 5 mg PO BID 11/26/22 12/02/23 Unknown History epinephrine 0.3 mg/0.3 mL 0.3 mg IM anaphylaxis 11/26/22 01/30/24 Unknown History injection, auto-injector lactulose 10 gram/15 mL oral PO 07/21/23 01/30/24 Unknown History solution oxycodone 20 mg tablet 20 mg PO TID PRN Pain (Scale Score 07/21/23 12/02/23 Unknown History 7-10) semaglutide (weight loss) 0.5 0.5 mg subcut QWEEK 12/02/23 01/30/24 Unknown History mg/0.5 mL subcutaneous pen injector (Anish) Exam Height,Weight and Vital Signs: Height 5 ft 8 in Weight 81.647 kg Assessment and Plan Final Anesthetic Review Family History of Problems with Anesthesia: Yes (PONV. pt doesn't want ketamine) History of Problems with Anesthesia: No
--- NOTE | 2024-03-03 10:57 | P.HPSUR_ITS ---
Pre-Procedural Eval Section A - 24 Hr Update-Section A only Date of Service: 03/03/24 Section B - Complete if H&P > 30 days Chief Complaint: Achalasia of cardia Relevant Family History (Specify if Yes): No Relevant Social History: None Present Medications: see Short Stay Collaborative assessment Medical History: Significant History (Shortness of breath Hypoglycemia Asthma- COPD overlap syndrome Pulmonary nodules COPD (chronic obstructive pulmonary disease) Hx of renal calculi Asthma Hx of allergic rhinitis History of esophageal spasm Hx of chest pain Back pain Osteoarthritis of both hips Hx of goiter History of IBS History of co) History of Previous Operations: Relevant previous surgery/procedure and date(s) (History of surgery on arm H/O shoulder surgery H/O neck surgery Hx of endoscopy Hx of transurethral resection of prostate Hx of tonsillectomy Hx of esophagogastroduodenoscopy Hx of colonoscopy History of nasal surgery Hx of left inguinal hernia repair Hx of cervical discectomy) Allergies: Allergies Allergy/AdvReac Type Severity Reaction Status Date / Time metronidazole [From FLAGYL] Allergy Severe RASH Verified 03/03/24 10:41 tree and shrub pollen [TREE] Allergy Severe Rash Verified 03/03/24 10:41 dexamethasone AdvReac Severe palpitatiio Verified 03/03/24 10:41 ns fluticasone furoate AdvReac Severe palpitations, Verified 03/03/24 10:41 [Breo Ellipta] high BP umeclidinium AdvReac Severe palpitation Verified 03/03/24 10:41 [Incruse Ellipta] s Bee sting Allergy Severe Hives/Difficulty Uncoded 01/30/24 09:48 breathing Clindamycin HCl Allergy Severe Hives Uncoded 01/30/24 09:48 ENVIRONMENTAL Allergy Severe Rash Uncoded 01/30/24 09:48 Review of Systems Sugical H&P ROS: Negative: Constitution, Cardiovascular, Respiratory, Neurological, Psychiatric, Hem-Onc, Allergic/Immunologic, Gastrointestinal, Genitourinary, Musculoskeletal, Integumentary, Endocrine and Eyes/Ears/Nose/Throat Exam Surgical H&P Exam: Normal: HEENT, Normal: Heart, Normal: Lungs, Normal: Extremities, Normal: Abdomen, Normal: Skin and Normal: Neurological Plan Diagnosis/Plan: Unchanged I have reviewed the history and physical and performed a pertinent physical examination on my patient. No changes have occurred unless specified. Time Spent With Patient Time: Total time managing care of this patient today ____ minutes.
[2024-03-03 11:01] VITALS: BP 133/86; PULSE 62; RESP 15; TEMP 36.6; O2SAT 99
--- NOTE | 2024-03-03 11:24 | P.CONAN_ITS ---
[facility] Active Problems Active Problems: All Active Problems Overweight (BMI 25.0-29.9) (Acute) [place] infection (Acute) Nephrolithiasis (Acute) Abnormal EKG (Acute) Tubular adenoma (Acute) Lower abdominal pain (Acute) Neuropathy (Acute) Bladder outlet obstruction (Acute) Renal cyst (Acute) Flank pain (Acute) Chest pain (Acute) Nonalcoholic steatohepatitis (DELUNA) (Acute) Dysphagia (Acute) Bladder spasm (Acute) Palpitation (Acute) Urgency of micturition (Acute) Esophageal stricture (Acute) Pre-op evaluation (Acute) KATHLEEN on CPAP (Acute) Cervical radiculopathy (Acute) Hx of chest pain (Acute) High cholesterol (Acute) Hypertension (Acute) Shortness of breath (Acute) Hypoglycemia (Acute) Asthma-COPD overlap syndrome (Acute) Pulmonary nodules (Acute) GERD (gastroesophageal reflux disease) (Acute) COPD (chronic obstructive pulmonary disease) (Acute) Anxiety (Acute) Past Medical History Medical History Shortness of breath Hypoglycemia Asthma-COPD overlap syndrome Pulmonary nodules COPD (chronic obstructive pulmonary disease) Hx of renal calculi Asthma Hx of allergic rhinitis History of esophageal spasm Hx of chest pain Back pain Osteoarthritis of both hips Hx of goiter History of IBS History of colitis Chronic pain High cholesterol Hx of multiple pulmonary nodules Hypertension PTSD (post-traumatic stress disorder) Panic attacks Dysphagia GERD (gastroesophageal reflux disease) Anxiety Functional capacity: independent ambulation Family History Family History Father No problems noted. Mother No problems noted. Family history of problems with anesthesia: Yes (PONV. pt doesn't want ketamine) Surgical History Surgical History History of surgery on arm H/O shoulder surgery H/O neck surgery Hx of endoscopy Hx of transurethral resection of prostate Hx of tonsillectomy Hx of esophagogastroduodenoscopy Hx of colonoscopy History of nasal surgery Hx of left inguinal hernia repair Hx of cervical discectomy History of Problems with Anesthesia: No Social History Social History Household Members: Other Household Members Other:: Mother Alcohol intake: never Patient Tobacco Use Status: Former Tobacco user Tobacco use type: Cigarette Years Smoked: 30 Second Hand Smoke Exposure: No Use of substances other than those prescribed or required for medical reasons: No Are you DNR?: No Advance Directives: No Advance Directives Information Provided: Yes Current occupational status: unemployed Meds Allergies Allergy/AdvReac Type Severity Reaction Status Date / Time metronidazole [From FLAGYL] Allergy Severe RASH Verified 03/03/24 10:41 tree and shrub pollen [TREE] Allergy Severe Rash Verified 03/03/24 10:41 dexamethasone AdvReac Severe palpitatiio Verified 03/03/24 10:41 ns fluticasone furoate AdvReac Severe palpitations, Verified 03/03/24 10:41 [Breo Ellipta] high BP umeclidinium AdvReac Severe palpitation Verified 03/03/24 10:41 [Incruse Ellipta] s Bee sting Allergy Severe Hives/Difficulty Uncoded 01/30/24 09:48 breathing Clindamycin HCl Allergy Severe Hives Uncoded 01/30/24 09:48 ENVIRONMENTAL Allergy Severe Rash Uncoded 01/30/24 09:48 Active Medications: Current Medications Lactated Ringer's (Lr) 1,000 mls @ 50 mls/hr IVCONT .Q20H RUSTY Home Medications ?Medication ?Instructions ?Recorded ?Confirmed ?Last Taken ?Type levocetirizine 5 mg tablet 5 mg PO DIRECTED 12/23/19 12/02/23 Unknown History cholecalciferol (vitamin D3) 50 05/09/22 01/30/24 Unknown History mcg (2,000 unit) capsule (Vitamin D3) levalbuterol tartrate 45 inhalation 05/09/22 12/02/23 Unknown History mcg/actuation aerosol inhaler nebulizers 10/31/22 12/02/23 Unknown History epinephrine 0.3 mg/0.3 mL 0.3 mg IM anaphylaxis 11/26/22 01/30/24 Unknown History injection, auto-injector lactulose 10 gram/15 mL oral PO 07/21/23 01/30/24 Unknown History solution oxycodone 20 mg tablet 20 mg PO TID PRN Pain (Scale Score 07/21/23 12/02/23 Unknown History 7-10) semaglutide (weight loss) 0.5 0.5 mg subcut QWEEK 12/02/23 01/30/24 Unknown History mg/0.5 mL subcutaneous pen injector (Anish) Exam Height,Weight and Vital Signs: Height 5 ft 8 in Weight 81.647 kg Last Vital Signs Temp 97.8 F 03/03/24 11:01 Pulse 62 03/03/24 11:01 Resp 15 03/03/24 11:01 BP 133/86 03/03/24 11:01 Pulse Ox 99 03/03/24 11:01 O2 Del Method Room Air 03/03/24 11:01 Airway Mallampati Class: II TM Dist: >3cm Neck ROM: Full Denture: Lower Heart: RRR Lungs: CTA Assessment and Plan Assessment Anesthesia Assessment: Anesthesia Plan Discussed and Chart Reviewed Final Anesthetic Review Family History of Problems with Anesthesia: Yes (PONV. pt doesn't want ketamine) History of Problems with Anesthesia: No NPO: Yes ASA Class: II Final Preanesthetic Review: Meds/Allgs Chart Reviewed, Consent Obtained/Reviewed and Anes Risks/Benef Reviewed Patient Risk: Low Procedure Risk: Low Anesthetic Plan Anesthetic Plan: MAC: Disposition: Standard PACU
--- NOTE | 2024-03-03 11:34 | W.PM.OPN ---
Operative Note Operative Note Date of Service: 03/03/24 Narrative: Procedure Description: EGD Indication: dysphagia and esophgeal spasm noted on Ba swallow Anesthesia: MAC FLEXIBLE TRANSORAL UPPER GASTROINTESTINAL ENDOSCOPY UPPER ENDOSCOPY Consent: Indications for the procedure and potential complications of bleeding, perforation, reaction to medications and missed diagnosis were discussed with the patient and informed consent was obtained. Instrument: Olympus GIF H 190 J mid size upper endoscope Monitoring: Vital signs and clinical assessment, continuous EKG monitoring, Pulse oximetry, Carbon Dioxide monitoring and blood pressure monitoring were done throughout the procedure. Procedure: The patient was placed in the left lateral decubitis position and pre-procedure medications were administered and a bite block was placed. The endoscope was inserted into the mouth and advanced under direct vision to the third part of duodenum. A careful inspection was made as the upper endoscope was withdrawn including a retroflexed examination of the proximal stomach; Findings and interventions are described below. Findings: Larynx:normal Esophagus: GE junction at 40 cm, diaphragm hiatus at 40 cm, dilation done with 17 mm bougie using savary wire with superficial tear noted in the upper esophagus. bx taken from distal and proximal esophagus Stomach: Patchy erythema. Grade 2 flap valve on retroflexed examination of the cardia. Partial wrap from prior fundoplication noted, scattered fundic gland polyps Duodenum: Normal bulb and descending duodenum, Intervention: Savary dilation using wire, biopsy Impression/Findings: upper esophageal stricture s/p savary fundic gland polyps gastritis PLAN: magic mouthwash for 1 week cont PPI
[2024-03-03 11:42] VITALS: BP 103/66; PULSE 89; RESP 16; TEMP 36.2; O2SAT 93
--- NOTE | 2024-03-03 11:52 | HO.POSTANES ---
Post Anesthesia Evaluation Post Anesthesia Evaluation Date of Service: 03/03/24 Vital Signs: Vital Signs Temp Pulse Resp BP Pulse Ox O2 Del Method 03/03/24 11:01 97.8 F 62 15 133/86 99 Room Air Anesthesia: Monitored Mental Status: Awake Pain Control: Satisfactory Nausea/Vomiting: None Hydration: Adequate Anesthesia-Related Issues: No Anes. Related Issues
[2024-03-03 11:57] VITALS: BP 105/70; PULSE 65; RESP 18; TEMP 36.2; O2SAT 97
--- OUTSIDE RECORDS SUMMARY | 2024-03-03 23:44 | XMS_ITS | Continuity of Care Document ---
Author Organization [facility] Address [address] [place] [address] Phone Care Team Providers Care Business Process Specialist Name Role Phone Mars CARRERA FACS RVT [...] Providers Copied on Encounter [facility], [address], [id number], [place] tel:[phone] [facility] No Information Mars CARRERA FACS RVT ANUJA Leal. [address], [address], [facility] [place], [address], [place]. tel:[phone] Office/Outpt E&M Established 15 Mins [facility], [address] [place] [address] Dr [address], [place], [id number], [place] tel:[phone] [place] Venous insufficiency (chronic) (peripheral) 3 Mars CARRERA [facility] Olivier Elvis. [address], [address], [facility] [place], [address], [place]. tel:[phone] Referring Provider: Olivier Crews MD, [facility], [facility] [address] [facility], [facility] [place], [address]. tel:[phone] [place] [facility], [address] [place] [address] Dr [address], [place], [id number], [place] tel:[phone] CVR - [place] Venous insufficiency (chronic) (peripheral)Pa in in right legPain in left leg 3 Mars CARRERA FACS [facility] ANUJA Aguayo Elvis. [address], [address] [facility], [facility] [place], [address], [place]. [phone] Referring Provider: Olivier Crews MD, [facility], [facility]0 [address] Suite [facility], [place], [address]. tel:[phone] Office/Outpt E&M Established 15 Mins [place] [facility], [address] [place] [address] [address], [place], [id number], [place] tel:[phone] CV[place] Body mass index (BMI) 29.0-29.9, adultVenous insufficiency (chronic) (peripheral) 3 Mars CARRERA [facility] Olivier Elvis. [address], [address], [facility] [place], [address], [place]. tel:[phone] Referring Provider: Olivier Crews MD, [facility], [facility]0 [address] [address] Suite [facility], [facility] [place], [address]. tel:[phone] Family History Family Member Type Diagnosis Age At Onset No Information Payers Payer name Insurance type Covered green party ID Authoriza tion(s) Medicare ERIC JARAMILLO [id number] Medical Assistance ERIC BARLOW [id number] Social History Type Description Quantity Date Captured [...]
--- OUTSIDE RECORDS SUMMARY | 2024-03-03 23:47 | XMS_ITS | Continuity of Care Document ---
Author Organization [facility] Address [address] [place] [address] Phone Care Team Providers Care Hand Mold Maker Name Role Phone Mars CARRERA FACS RVT [...] Providers Copied on Encounter [facility], [address], [id number], [place] tel:[phone] [facility] No Information Mars CARRERA FACS RVT ANUJA Leal. [address], [address], [facility] [place], [address], [place]. tel:[phone] Office/Outpt E&M Established 15 Mins [facility], [address] [place] [address] Dr [address], [place], [id number], [place] tel:[phone] CVR [place] Venous insufficiency (chronic) (peripheral) 3 Mars CARRERA FACS [facility] Olivier Elvis. [address], [address], [facility] [place], [address], [place]. tel:[phone] Referring Provider: Olivier Crews MD, FACS [facility], [facility] [facility] [address] [facility], [place], [address]. tel:[phone] [place] [facility], [address] [place] [address] Dr [address], [place], [id number], [place] tel:[phone] CVR - [place] Venous insufficiency (chronic) (peripheral)Pa in in right legPain in left leg 3 Mars CARRERA FACS [facility] ANUJA Aguayo Elvis. [address], [address] [facility], [place], [address], [place]. [phone] Referring Provider: Olivier Crews MD, FACS [facility], [facility]0 [facility] Suite [facility], [place], [address]. tel:[phone] Office/Outpt E&M Established 15 Mins [place] [facility], [address] [place] [address] [address], [place], [id number], [place] tel:[phone] CVR - [place] Body mass index (BMI) 29.0-29.9, adultVenous insufficiency (chronic) (peripheral) 3 Mars CARRERA FACS [facility] Olivier Elvis. [address], [address], [place], [address], [place]. tel:[phone] Referring Provider: Olivier Crews MD, FACS [facility], [facility]0 [facility] Suite [facility], [place], [address]. tel:[phone] Family History Family Member Type Diagnosis Age At Onset No Information Payers Payer name Insurance type Covered libertarian ID Authoriza tion(s) Medicare ERIC JARAMILLO [id number] Medical Assistance ERIC BARLOW [id number] Social History Type Description Quantity Date Captured [...]
== END 2024-03-03 12:29 | disposition home or self-care (01) ==
PROVIDERS: PCP Internal Medicine; Visit Provider Internal Medicine Gastroenterology
PROC: (CPT 43248; principal; 2024-03-03 11:00)
DX: K22.0 Achalasia of cardia (principal); R13.10 Dysphagia, unspecified; K29.60 Other gastritis without bleeding; K31.7 Polyp of stomach and duodenum; K44.9 Diaphragmatic hernia without obstruction or gangrene; K21.9 Gastro-esophageal reflux disease without esophagitis; I10 Essential (primary) hypertension; E78.00 Pure hypercholesterolemia, unspecified; E16.2 Hypoglycemia, unspecified; J44.9 Chronic obstructive pulmonary disease, unspecified; R91.8 Other nonspecific abnormal finding of lung field; G89.29 Other chronic pain; G47.33 Obstructive sleep apnea (adult) (pediatric); F43.10 Post-traumatic stress disorder, unspecified; F41.0 Panic disorder [episodic paroxysmal anxiety]; Z87.442 Personal history of urinary calculi; Z79.85 Long-term (current) use of injectable non-insulin antidiabetic drugs; Z79.899 Other long term (current) drug therapy; Z88.1 Allergy status to other antibiotic agents; Z88.8 Allergy status to other drugs, medicaments and biological substances; Z98.890 Other specified postprocedural states; Z87.891 Personal history of nicotine dependence
CPT/HCPCS: 43248; 43239; 88305; 88313; 88342; C1769; J2003; J2704

== ENCOUNTER → 2024-03-03 09:26 | Outpatient (BNV) | payer MEDICARE, MEDICAID, SELFPAY | PROVIDERS: PCP Internal Medicine; Visit Provider Internal Medicine Gastroenterology | DX: K22.2 Esophageal obstruction (principal); K31.7 Polyp of stomach and duodenum; K29.70 Gastritis, unspecified, without bleeding | CPT/HCPCS: 43239; 43248 ==

== ENCOUNTER 2024-03-26 11:08 | Emergency (ER) | payer MEDICARE, MEDICAID, SELFPAY ==
--- NOTE | ~2024-03-26 | XR_ITS ---
EXAMINATION: XR CHEST CLINICAL INFORMATION: chest pain COMPARISON: None available. TECHNIQUE: 2 views of the chest were obtained. FINDINGS: No significant abnormality is noted involving the heart, lungs, mediastinum, bony thorax or soft tissues. XR/XR chest 2V IMPRESSION: Unremarkable chest examination. Electronically signed by: Osiel Sparks MD 03/26/2024 01:14 PM [facility] [place]
[2024-03-26 11:17] VITALS: BP 158/84; PULSE 81; RESP 20; TEMP 36.6; O2SAT 99; BMI 28.3
--- NOTE | 2024-03-26 11:17 | ED_ITS ---
HPI - General Adult General Chief complaint: General Medical Stated complaint: Esophagus issues Related Data Home Medications ?Medication ?Instructions ?Recorded ?Confirmed levocetirizine 5 mg tablet 5 mg PO DIRECTED 12/23/19 12/02/23 cholecalciferol (vitamin D3) 50 05/09/22 01/30/24 mcg (2,000 unit) capsule (Vitamin D3) levalbuterol tartrate 45 inhalation 05/09/22 12/02/23 mcg/actuation aerosol inhaler nebulizers 10/31/22 12/02/23 epinephrine 0.3 mg/0.3 mL 0.3 mg IM anaphylaxis 11/26/22 01/30/24 injection, auto-injector lactulose 10 gram/15 mL oral PO 07/21/23 01/30/24 solution oxycodone 20 mg tablet 20 mg PO TID PRN Pain (Scale Score 07/21/23 12/02/23 7-10) semaglutide (weight loss) 0.5 0.5 mg subcut QWEEK 12/02/23 01/30/24 mg/0.5 mL subcutaneous pen injector (Anish) Previous Rx's ?Medication ?Instructions ?Recorded atorvastatin 20 mg tablet 20 mg PO DAILY 30 days #30 tabs 01/25/20 vonoprazan 10 mg tablet 10 mg PO DAILY #30 tabs 11/07/23 sucralfate 100 mg/mL oral 10 ml PO BID 30 days #600 mL 01/30/24 suspension (Carafate) Magic Mouthwash 10 ml PO QID #240 mL 02/12/24 Diphen/Lido/Antacid 1:1:1 240 mL suspension esomeprazole magnesium 40 mg 40 mg PO BID #180 caps 03/02/24 capsule,delayed release Magic Mouthwash 10 ml PO QID #240 mL 03/03/24 Diphen/Lido/Antacid 1:1:1 240 mL suspension Allergies Allergy/AdvReac Type Severity Reaction Status Date / Time metronidazole [From FLAGYL] Allergy Severe RASH Verified 03/26/24 11:20 tree and shrub pollen [TREE] Allergy Severe Rash Verified 03/26/24 11:20 dexamethasone AdvReac Severe palpitatiio Verified 03/26/24 11:20 ns fluticasone furoate AdvReac Severe palpitations, Verified 03/26/24 11:20 [Breo Ellipta] high BP umeclidinium AdvReac Severe palpitation Verified 03/26/24 11:20 [Incruse Ellipta] s Bee sting Allergy Severe Hives/Difficulty Uncoded 01/30/24 09:48 breathing Clindamycin HCl Allergy Severe Hives Uncoded 01/30/24 09:48 ENVIRONMENTAL Allergy Severe Rash Uncoded 01/30/24 09:48 PMFSH Past Medical History Medical History Shortness of breath Hypoglycemia Asthma-COPD overlap syndrome Pulmonary nodules COPD (chronic obstructive pulmonary disease) Hx of renal calculi Asthma Hx of allergic rhinitis History of esophageal spasm Hx of chest pain Back pain Osteoarthritis of both hips Hx of goiter History of IBS History of colitis Chronic pain High cholesterol Hx of multiple pulmonary nodules Hypertension PTSD (post-traumatic stress disorder) Panic attacks Dysphagia GERD (gastroesophageal reflux disease) Anxiety Surgical History (Reviewed 03/03/24 @ :24 by Mallory Villalobos MD) History of surgery on arm H/O shoulder surgery H/O neck surgery Hx of endoscopy Hx of transurethral resection of prostate Hx of tonsillectomy Hx of esophagogastroduodenoscopy Hx of colonoscopy History of nasal surgery Hx of left inguinal hernia repair Hx of cervical discectomy Family History Family History (Reviewed 03/03/24 @ :24 by Mallory Villalobos MD) Father No problems noted. Mother No problems noted. Social History Social History (Reviewed 03/03/24 @ :24 by Mallory Villalobos MD) Household Members: Other Household Members Other:: Mother Alcohol intake: never Patient Tobacco Use Status: Former Tobacco user Tobacco use type: Cigarette Years Smoked: 30 Second Hand Smoke Exposure: No Advance Directives: No Advance Directives Information Provided: Yes Do you have a plan to hurt others: No Plan Current occupational status: unemployed Physical Exam ED Vital Signs: BMI result Body Mass Index 28.3 Course Course Course Narrative: This is a rapid medical exam performed by Rebecca Chapa NP: Additional HPI, ROS, PE not included below will be deferred to primary provider. Patient is a 58-year-old male with history of achalasia, COPD, asthma, IBS, colitis, HTN, PTSD, GERD presenting with complaint of mid chest/epigastric pain for the past 3 days. Had esophageal dilation with Dr. Beal on 03/03. Now reporting pain with inspiration. States he called the GI office and was referred to cardiology. Patient is awake, A+Ox3, in no acute distress, managing secretions, lungs clear throughout, RRR, ambulating independently with steady gait. Plan: labs Medical Decision Making Lab Data 03/26/24 11:55 03/26/24 11:55 Labs: Lab Results 03/26/24 Range/Units 11:55 WBC 7.6 (4.8-10.8) X10*3/uL RBC 5.28 (4.60-5.80) X10*6/uL Hgb 15.2 (14.0-18.0) g/dl Hct 46.9 (42.0-52.0) % MCV 88.8 (80.0-98.0) fL MCH 28.8 (27.0-33.0) pg MCHC 32.4 (31.0-36.0) g/dl RDW 12.8 (11.0-16.0) % Plt Count 274 (160-400) X10*3/uL MPV 9.7 (9.4-12.4) fL Immature Gran % (Auto) 0.3 (0.0-0.4) % Neut % (Auto) 60.7 (45-73) % Lymph % (Auto) 28.6 (20-40) % [place] % (Auto) 8.5 (2-11) % Eos % (Auto) 1.5 (0-4) % Baso % (Auto) 0.4 (0-2) % Lymph # (Auto) 2.2 (1.2-4.9) X10*3/uL [place] # (Auto) 0.6 (0.1-1.2) X10*3/uL Eos # (Auto) 0.1 (0.0-0.4) X10*3/uL Baso # (Auto) 0.0 (0.0-0.2) X10*3/uL Abs Immat Gran (auto) 0.02 (0.00-0.03) X10*3/uL Absolute Neuts (auto) 4.6 (2.0-8.3) x10*3/uL Absolute Nucleated RBC 0.000 (0.0-0.012) X10*3/uL Nucleated RBC % (auto) 0.0 (0.0-0.2) /100WBC PT 12.0 (10.9-12.4) SEC INR 1.0 (0.9-1.1) Sodium 139 (135-145) mmol/L Potassium 4.1 (3.3-5.1) mmol/L Chloride 105 (96-108) mmol/L Carbon Dioxide 27 (22-29) mmol/L Anion Gap 11 L (12-20) BUN 15 (9-16) mg/dL Creatinine 0.82 (0.5-1.4) mg/dL Estim Creat Clear Calc 103.0 Estimated GFR > 60 Random Glucose 96 (60-115) mg/dL Calcium 9.2 (8.4-10.2) mg/dL Total Bilirubin 0.5 (0.0-1.0) mg/dL AST 26 (5-37) U/L ALT 71 H (0-40) U/L Alkaline Phosphatase 90 (39-117) U/L Troponin I High Sens < 2.7 (<3.5-35.0) ng/L Total Protein 7.7 (6.5-8.0) g/dL Albumin 4.5 (3.5-5.0) g/dL Discharge Plan Discharge Clinical Impression: Eloped from emergency department Patient Disposition: Left W/O Completing Treatment Prescriptions: No Action atorvastatin 20 mg tablet 20 mg PO DAILY 30 Days Qty: 30 1RF Magic Mouthwash Diphen/Lido/Antacid 1:1:1 240 mL suspension 10 ml PO QID Qty: 240 0RF Rx Instructions: Lidocaine Viscous 2 % 80mL; diphenhydramine 12.5 mg/5 mL 80mL; aluminum-mag hydrox-simeth [id number]/5mL 80mL esomeprazole magnesium 40 mg capsule,delayed release(DR/EC) 40 mg PO BID Qty: 180 0RF levalbuterol tartrate 45 mcg/actuation HFA aerosol inhaler INHALATION cholecalciferol (vitamin D3) [Vitamin D3] 50 mcg (2,000 unit) capsule Magic Mouthwash Diphen/Lido/Antacid 1:1:1 240 mL suspension 10 ml PO QID Qty: 240 1RF Rx Instructions: Lidocaine Viscous 2 % 80mL; diphenhydramine 12.5 mg/5 mL 80mL; aluminum-mag hydrox-simeth [id number]/5mL 80mL levocetirizine 5 mg tablet 5 mg PO DIRECTED (DME) nebulizers Misc See Rx Instructions .Route Rx Instructions: As directed epinephrine 0.3 mg/0.3 mL auto-injector 0.3 mg IM [place] 0.5 mg/0.5 mL pen injector 0.5 mg subcut QWEEK Rx Instructions: administer weeks 5 through 8 of therapy lactulose 10 gram/15 mL solution PO oxycodone 20 mg tablet 20 mg PO TID PRN (Reason: Pain (Scale Score 7-10)) sucralfate [Carafate] 100 mg/mL suspension 10 ml PO BID 30 Days Qty: 600 1RF vonoprazan 10 mg tablet 10 mg PO DAILY Qty: 30 2RF Discharge Date/Time: 03/26/24 20:26
--- NOTE | 2024-03-26 11:21 | ECG_ITS ---
Test Reason : chest pain Blood Pressure : / mmHG Vent. Rate : 077 BPM Atrial Rate : 077 BPM P-R Int : 168 ms QRS Dur : 084 ms QT Int : 376 ms P-R-T Axes : 057 -03 037 degrees QTc Int : 425 ms Normal sinus rhythm Normal ECG When compared with ECG of 29-OCT-2022 11:18, No significant change was found Referred By: Marina Chapa Electronically Signed By:YOHANA NAYLOR MD
[2024-03-26 12:00] LABS: MANUAL DIFF FLAG NO
[2024-03-26 12:02] LABS: Basophils Percent Auto 0.4 % (0-2); Eosinophils Absolute Auto 0.1 X10*3/uL (0.0-0.4); Eosinophils Percent Auto 1.5 % (0-4); Hematocrit 46.9 % (42.0-52.0); Hemoglobin 15.2 g/dl (14.0-18.0); Imm Gran Abs Auto 0.02 X10*3/uL (0.00-0.03); Imm Gran Pct Auto 0.3 % (0.0-0.4); Lymphocytes Absolute Auto 2.2 X10*3/uL (1.2-4.9); Lymphocytes Percent Auto 28.6 % (20-40); Mean Corpuscular HGB Conc 32.4 g/dl (31.0-36.0); Mean Corpuscular Hemoglobin 28.8 pg (27.0-33.0); Mean Corpuscular Volume 88.8 fL (80.0-98.0); Mean Platelet Volume 9.7 fL (9.4-12.4); Monocytes Absolute Auto 0.6 X10*3/uL (0.1-1.2); Monocytes Percent Auto 8.5 % (2-11); Neutrophils Absolute Auto 4.6 x10*3/uL (2.0-8.3); Neutrophils Percent Auto 60.7 % (45-73); Platelet Count 274 X10*3/uL (160-400); Red Blood Count 5.28 X10*6/uL (4.60-5.80); Red Cell Distribution Width 12.8 % (11.0-16.0); White Blood Count 7.6 X10*3/uL (4.8-10.8)
[2024-03-26 12:21] LABS: Alanine Aminotransferase 71 U/L (0-40); Albumin Level 4.5 g/dL (3.5-5.0); Alkaline Phosphatase 90 U/L (39-117); Anion Gap 11 (12-20); Aspartate Amino Transferase 26 U/L (5-37); Bilirubin Total 0.5 mg/dL (0.0-1.0); Blood Urea Nitrogen 15 mg/dL (9-16); Calcium 9.2 mg/dL (8.4-10.2); Carbon Dioxide 27 mmol/L (22-29); Chloride 105 mmol/L (96-108); Estimated Glomerular Filt Rate > 60; Glucose Random 96 mg/dL (60-115); Potassium 4.1 mmol/L (3.3-5.1); Sodium 139 mmol/L (135-145); Total Protein 7.7 g/dL (6.5-8.0)
[2024-03-26 12:26] LABS: Troponin-I High Sensitivity < 2.7 ng/L (<3.5-35.0)
--- OUTSIDE RECORDS SUMMARY | 2024-03-26 12:57 | XMS_ITS | Continuity of Care Document ---
Author Organization [facility] Address [address] [place] [address] Phone Care Team Providers Care Aquatic Facility Manager Name Role Phone Mars CARRERA FACS RVT [...] Providers Copied on Encounter [facility], [address], [id number], [place] tel:[phone] [facility] No Information Mars CARRERA FACS RVT ANUJA Leal. [address], [address], [facility] [place], [address], [place]. tel:[phone] Office/Outpt E&M Established 15 Mins [facility], [address] [place] [address] Dr [address], [place], [id number], [place] tel:[phone] CVR - [place] Venous insufficiency (chronic) (peripheral) 3 Mars CARRERA FACS [facility] Olivier Elvis. [address], [address], [facility] [place], [address], [place]. tel:[phone] Referring Provider: Olivier Crews MD, [facility], [facility] [facility] [address] [facility], [facility] [place], [address]. tel:[phone] [place] [facility], [address] [place] [address] Dr [address], [place], [id number], [place] tel:[phone] CVR - [place] Venous insufficiency (chronic) (peripheral)Pa in in right legPain in left leg 3 Mars CARRERA FACS [facility] ANUJA Aguayo Elvis. [address], [address] [facility], [place], [address], [place]. [phone] Referring Provider: Olivier Crews MD, [facility], [facility]0 [facility] [address] [facility], [place], [address]. tel:[phone] Office/Outpt E&M Established 15 Mins [place] [facility], [address] [place] [address] [address], [place], [id number], [place] tel:[phone] [place] Body mass index (BMI) 29.0-29.9, adultVenous insufficiency (chronic) (peripheral) 3 Mars CARRERA [facility] Olivier Elvis. [address], [address], [facility] [place], [address], [place]. tel:[phone] Referring Provider: Olivier Crews MD, [facility], [facility]0 [facility] [address] [facility], [facility] [place], [address]. tel:[phone] Family History Family Member Type Diagnosis Age At Onset No Information Payers Payer name Insurance type Covered republican ID Authoriza tion(s) Medicare ERIC JARAMILLO [id number] Medical Assistance ERIC BARLOW [id number] Social History Type Description Quantity Date Captured [...]
== END 2024-03-26 20:26 | disposition left against medical advice (07) ==
PROVIDERS: Registered Nurse Emergency; Emergency Provider Emergency Medicine; PCP Internal Medicine
DX: R07.9 Chest pain, unspecified (principal); R10.13 Epigastric pain; I10 Essential (primary) hypertension; E78.00 Pure hypercholesterolemia, unspecified; J45.909 Unspecified asthma, uncomplicated; Z79.02 Long term (current) use of antithrombotics/antiplatelets; Z79.899 Other long term (current) drug therapy
CPT/HCPCS: 36415; 71046; 80053; 84484; 85025; 85610; 93005; 99283

== ENCOUNTER → 2024-03-26 11:21 | Outpatient (BNV) | payer MEDICARE, MEDICAID, SELFPAY | PROVIDERS: PCP Internal Medicine; Visit Provider Internal Medicine Cardiovascular Disease | DX: R07.9 Chest pain, unspecified (principal) | CPT/HCPCS: 93010 ==

== ENCOUNTER → 2024-03-26 11:21 | Outpatient (BNV) | payer MEDICARE, MEDICAID, SELFPAY | PROVIDERS: PCP Internal Medicine; Visit Provider Radiology Diagnostic Radiology | DX: R07.9 Chest pain, unspecified (principal) | CPT/HCPCS: 71046 ==

== ENCOUNTER 2024-04-09 09:29 | Outpatient (AMB) | payer MEDICARE, MEDICAID, SELFPAY ==
--- NOTE | 2024-04-09 09:38 | A.OFFVIS_ITS ---
Vital Signs 04/09/24 09:39 Height 5 ft 7 in Weight 175 lb BMI 27.4 BP 132/79 Blood Pressure Location Lt brachial Position Sitting Pulse 69 Intake Visit Reasons: 5 month follow up Intake Note: <Jv Monroy presents here today as a 5 month follow up CC: Stopped taking Senna, having issues with constipation, recently seen in the ED, still clearing his throat out. Allergies metronidazole [From FLAGYL] Allergy (Severe, Verified 03/26/24 11:20) RASH tree and shrub pollen [TREE] Allergy (Severe, Verified 03/26/24 11:20) Rash dexamethasone Adverse Reaction (Severe, Verified 03/26/24 11:20) palpitatiions fluticasone furoate [Breo Ellipta] Adverse Reaction (Severe, Verified 03/26/24 11:20) palpitations, high BP umeclidinium [Incruse Ellipta] Adverse Reaction (Severe, Verified 03/26/24 11:20) palpitations Bee sting Allergy (Severe, Uncoded 01/30/24 09:48) Hives/Difficulty breathing Clindamycin HCl Allergy (Severe, Uncoded 01/30/24 09:48) Hives ENVIRONMENTAL Allergy (Severe, Uncoded 01/30/24 09:48) Rash HPI HPI 5 month follow up: Details: 58 yr old m here for f/u RECAP: ? HE had a esophageal dilation with 16 mm bougie, tear distal and proximal ? he had chest pain and discomfort and went to ED< cxr normal and he was given sucralfate and pepcid ? now feeling amanda ? still some discomfort when drinking water, not so bad with other types of foods ? breathing is good ? stool is normal, no blood, no melena ? he had c/o suprapubic pain and urine hesitancy sent to urology and he had TURP done ? he had further EGD with dilation balloon at [facility] and [facility] with small tears noted--done 05/2019 ? he restarted dexilant after last apptm EGD repeated with 16 mm bougie with small tear f/u EGD 06/2020--dilated with bougie with small proximal tear he was waiting for cervical spine plate removal which was done but did not alter his swallowing issues he also has DELUNA-- mild ALt elevation US- 04/2020-- fatty liver, renal cyst Eventually referred for manometry and high IRP with concern for pre achalasia He saw Olga nielsen and plan was for heller myotomy, he had repeat Ba swallow 01/2021 with narrowing at GEJ with holdup of tablet, some dysmotility noted He eventually had the myotomy and a fundoplication Ba swallow 11/2021--- no stricture, fundoplication noted, pill went down ok He had Ba swallow- at [facility] with mild narrowing GEJ, fundoplication noted , no obstruction or laryngeal penetration HE had EGD and colonoscopy 05/16 with adenomatous polyps removed and dilation of GEJ which was tight from his fundoplication EGD: 12/19/22 Impression/Findings: esophagitis sourav balloon dilation to 15 mm EGD 03/15- dilation, of [facility] with small tear noted EGD: 10/16/23 savary with 18 mm with tear seen upper esophagus INTERIM: he some issues with constipation he is on oxycodone and wygovy he still has issues with swallowing and feels airways irritated, slim fast associated with hidden drugs and bacteria contamination EXAM: GENERAL: The patient is well developed and nontoxic. VITAL SIGNS:see workflow HEENT: Nonicteric sclerae, PERRLA, EOMI. Oropharynx clear. Moist mucous membranes. Conjunctivae appear well perfused. No thyroid mass. CHEST: Chest wall is nontender. HEART: Regular rate and rhythm without murmurs. LUNGS: Clear to auscultation bilaterally. ABDOMEN: Soft, positive bowel sounds, nontender, no organomegaly. lap scars healing on abdomen SKIN: No rash, no excessive bruising, petechiae, or purpura. NEUROLOGIC: Cranial nerves II-XII intact without motor/sensory deficit. MS: normal Assessment & Plan 1/ dysphagia-- s/p savary, possibly worse now due to slim fast ingestion 2/ GERD 3/ DELUNA-mild 4/ tubular adenomas 5/ overweight with KATHLEEN and pre DM- PLAN: 1/ Trial of augmentin for 1 week and see if helps due to hx of bacterial contamination with slim fast 2/ trial of movantik see if helps his overall sx and constipation PFSH Medical History Shortness of breath Hypoglycemia Asthma-COPD overlap syndrome Pulmonary nodules COPD (chronic obstructive pulmonary disease) Hx of renal calculi Asthma Hx of allergic rhinitis History of esophageal spasm Hx of chest pain Back pain Osteoarthritis of both hips Hx of goiter History of IBS History of colitis Chronic pain High cholesterol Hx of multiple pulmonary nodules Hypertension PTSD (post-traumatic stress disorder) Panic attacks Dysphagia GERD (gastroesophageal reflux disease) Anxiety Surgical History History of surgery on arm H/O shoulder surgery H/O neck surgery Hx of endoscopy Hx of transurethral resection of prostate Hx of tonsillectomy Hx of esophagogastroduodenoscopy Hx of colonoscopy History of nasal surgery Hx of left inguinal hernia repair Hx of cervical discectomy Family History Father No problems noted. Mother No problems noted. Social History Household Members: Other Household Members Other:: Mother Alcohol intake: never Patient Tobacco Use Status: Former Tobacco user Tobacco use type: Cigarette Years Smoked: 30 Second Hand Smoke Exposure: No Current occupational status: unemployed Physical Exam Vital Signs: Last Vital Signs Pulse 69 04/09/24 09:39 BP 132/79 04/09/24 09:39 BMI result Body Mass Index 27.4 Assessment & Plan Assessment & Plan (1) Dysphagia: Code(s): R13.10 - Dysphagia, unspecified Category: Medical Plan: see above Medications: New amoxicillin-pot clavulanate 500-125 mg (Augmentin) 1 tab PO TID 21 tabs 0RF naloxegol (Movantik) must be taken on empty stomach; no food 1 hr after or 2-3 hrs before dose 12.5 mg PO QAM 30 tabs 1RF Coding Level of Care Code Est Pt Level 3 (58490) Diagnoses Dysphagia R13.10
[2024-04-09 09:39] VITALS: BP 132/79; PULSE 69; BMI 27.4
--- OUTSIDE RECORDS SUMMARY | 2024-04-09 10:29 | XMS_ITS | Continuity of Care Document ---
Author Organization [facility] Address [address] [place] [address] Phone Care Team Providers Care Ceramic Tile Installer Name Role Phone Mars CARRERA FACS RVT [...] Providers Copied on Encounter [facility], [address], [id number], [place] tel:[phone] [facility] No Information Mars CARRERA FACS RVT ANUJA Leal. [address], [address], [place], [address], [place]. tel:[phone] Office/Outpt E&M Established 15 Mins [facility], [address] [place] [address] Dr [address], [place], [id number], [place] tel:[phone] CVR - [place] - [place] Venous insufficiency (chronic) (peripheral) 3 Mars CARRERA FACS [facility] Olivier Elvis. [address], [address], [place], [address], [place]. tel:[phone] Referring Provider: Olivier Crews MD, FACS [facility], [facility] [facility], [place], [address]. tel:[phone] [place] [facility], [address] [place] [address] Dr [address], [place], [id number], [place] tel:[phone] CVR - [place] Venous insufficiency (chronic) (peripheral)Pa in in right legPain in left leg 3 Mars CARRERA FACS [facility], [place] ANUJA Aguayo Elvis. [address], Suite [facility], [place], [address], [place]. [phone] Referring Provider: Olivier Crews MD, FACS [facility], [facility] [facility] Suite [facility], [place], [address]. tel:[phone] Office/Outpt E&M Established 15 Mins [place] [facility], [address] [place] [address] [address], [place], [id number], [place] tel:[phone] [facility] - [place] Body mass index (BMI) 29.0-29.9, adultVenous insufficiency (chronic) (peripheral) 3 Mars CARRERA FACS [facility] Olivier Elvis. [address], [address], [place], [address], [place]. tel:[phone] Referring Provider: Olivier Crews MD, FACS [facility], [facility] Suite [facility], [place], [address]. tel:[phone] Family History Family Member Type Diagnosis Age At Onset No Information Payers Payer name Insurance type Covered alliance party ID Authoriza tion(s) Medicare ERIC JARAMILLO [id number] Medical Assistance ERIC BARLOW [id number] Social History Type Description Quantity Date Captured [...]
== END 2024-04-09 10:05 | disposition home or self-care (01) ==
PROVIDERS: PCP Internal Medicine; Visit Provider Internal Medicine Gastroenterology
DX: R13.10 Dysphagia, unspecified (principal)
CPT/HCPCS: 99213

== ENCOUNTER → 2024-04-09 09:29 | Outpatient (BNVA) | payer MEDICARE, MEDICAID, SELFPAY | PROVIDERS: PCP Internal Medicine; Visit Provider Internal Medicine Gastroenterology | DX: R13.10 Dysphagia, unspecified (principal) | CPT/HCPCS: 99212 ==

== ENCOUNTER 2024-04-28 09:54 | Day surgery (SDC) | payer MEDICARE, MEDICAID, SELFPAY ==
--- NOTE | 2024-04-27 09:29 | P.CONAN_ITS ---
Documented by User: Sharmila Rivera NP 04/27/24 09:41 HPI - Anesthesia Eval Consult details Narrative: 58yo M for Upper Endoscopy with Balloon Dilitation s/p same 02/2024 with TIVA Follows [facility] cardiology for nonspecific EKG abnormalities. Last office visit 11/2023: stable and continue with cardiac risk factor modification. Anesthesia Pre-Procedure Meds Is the patient on any of the following meds?: GLP1/DPP4 PMFSH Active Problems Active Problems: All Active Problems Overweight (BMI 25.0-29.9) (Acute) [place] infection (Acute) Nephrolithiasis (Acute) Abnormal EKG (Acute) Tubular adenoma (Acute) Lower abdominal pain (Acute) Neuropathy (Acute) Bladder outlet obstruction (Acute) Renal cyst (Acute) Flank pain (Acute) Chest pain (Acute) Nonalcoholic steatohepatitis (DELUNA) (Acute) Dysphagia (Acute) Bladder spasm (Acute) Palpitation (Acute) Urgency of micturition (Acute) Esophageal stricture (Acute) Pre-op evaluation (Acute) KATHLEEN on CPAP (Acute) Cervical radiculopathy (Acute) Hx of chest pain (Acute) High cholesterol (Acute) Hypertension (Acute) Shortness of breath (Acute) Hypoglycemia (Acute) Asthma-COPD overlap syndrome (Acute) Pulmonary nodules (Acute) GERD (gastroesophageal reflux disease) (Acute) COPD (chronic obstructive pulmonary disease) (Acute) Anxiety (Acute) Past Medical History Medical History Shortness of breath Hypoglycemia Asthma-COPD overlap syndrome Pulmonary nodules COPD (chronic obstructive pulmonary disease) Hx of renal calculi Asthma Hx of allergic rhinitis History of esophageal spasm Hx of chest pain Back pain Osteoarthritis of both hips Hx of goiter History of IBS History of colitis Chronic pain High cholesterol Hx of multiple pulmonary nodules Hypertension PTSD (post-traumatic stress disorder) Panic attacks Dysphagia GERD (gastroesophageal reflux disease) Anxiety Family History Family History Father No problems noted. Mother No problems noted. Family history of problems with anesthesia: Yes (PONV. pt doesn't want ketamine) Surgical History Surgical History History of surgery on arm H/O shoulder surgery H/O neck surgery Hx of endoscopy Hx of transurethral resection of prostate Hx of tonsillectomy Hx of esophagogastroduodenoscopy Hx of colonoscopy History of nasal surgery Hx of left inguinal hernia repair Hx of cervical discectomy History of Problems with Anesthesia: No Social History Social History Household Members: Other Household Members Other:: Mother Alcohol intake: never Patient Tobacco Use Status: Former Tobacco user Tobacco use type: Cigarette Years Smoked: 30 Second Hand Smoke Exposure: No Current occupational status: unemployed Meds Allergies Allergy/AdvReac Type Severity Reaction Status Date / Time metronidazole [From FLAGYL] Allergy Severe RASH Verified 03/26/24 11:20 tree and shrub pollen [TREE] Allergy Severe Rash Verified 03/26/24 11:20 dexamethasone AdvReac Severe palpitatiio Verified 03/26/24 11:20 ns fluticasone furoate AdvReac Severe palpitations, Verified 03/26/24 11:20 [Breo Ellipta] high BP umeclidinium AdvReac Severe palpitation Verified 03/26/24 11:20 [Incruse Ellipta] s Bee sting Allergy Severe Hives/Difficulty Uncoded 01/30/24 09:48 breathing Clindamycin HCl Allergy Severe Hives Uncoded 01/30/24 09:48 ENVIRONMENTAL Allergy Severe Rash Uncoded 01/30/24 09:48 Home Medications ?Medication ?Instructions ?Recorded ?Confirmed ?Last Taken ?Type levocetirizine 5 mg tablet 5 mg PO DIRECTED 12/23/19 12/02/23 Unknown History cholecalciferol (vitamin D3) 50 05/09/22 01/30/24 Unknown History mcg (2,000 unit) capsule (Vitamin D3) levalbuterol tartrate 45 inhalation 05/09/22 12/02/23 Unknown History mcg/actuation aerosol inhaler nebulizers 10/31/22 12/02/23 Unknown History epinephrine 0.3 mg/0.3 mL 0.3 mg IM anaphylaxis 11/26/22 01/30/24 Unknown History injection, auto-injector lactulose 10 gram/15 mL oral PO 07/21/23 01/30/24 Unknown History solution oxycodone 20 mg tablet 20 mg PO TID PRN Pain (Scale Score 07/21/23 12/02/23 04/28/24 History 7-10) semaglutide (weight loss) 2.4 mg subcut 04/09/24 Unknown History mg/0.75 mL subcutaneous pen injector (Wegovy) Exam Pertinent Lab Results Pertinent Lab Results: Laboratory Tests 03/26/24 11:55 WBC 7.6 Hgb 15.2 Hct 46.9 Plt Count 274 Sodium 139 Potassium 4.1 Chloride 105 Carbon Dioxide 27 BUN 15 Creatinine 0.82 Narrative Narrative: EKG 03/2024 Vent. Rate : 077 BPM Atrial Rate : 077 BPM P-R Int : 168 ms QRS Dur : 084 ms QT Int : 376 ms P-R-T Axes : 057 -03 037 degrees QTc Int : 425 ms Normal sinus rhythm Normal ECG When compared with ECG of 29-OCT-2022 11:18, No significant change was found Assessment and Plan Assessment Anesthesia Assessment: Chart Reviewed Final Anesthetic Review Family History of Problems with Anesthesia: Yes (PONV. pt doesn't want ketamine) History of Problems with Anesthesia: No Documented by User: Yvette [place] MD 04/28/24 13:54 HPI - Anesthesia Eval Anesthesia Pre-Procedure Meds Is the patient on any of the following meds?: GLP1/DPP4 (Last dose of wegovy 1 week ago) PMFSH Active Problems Active Problems: All Active Problems Overweight (BMI 25.0-29.9) (Acute) Ken[place] infection (Acute) Nephrolithiasis (Acute) Abnormal EKG (Acute) Tubular adenoma (Acute) Lower abdominal pain (Acute) Neuropathy (Acute) Bladder outlet obstruction (Acute) Renal cyst (Acute) Flank pain (Acute) Chest pain (Acute) Nonalcoholic steatohepatitis (DELUNA) (Acute) Dysphagia (Acute) Bladder spasm (Acute) Palpitation (Acute) Urgency of micturition (Acute) Esophageal stricture (Acute) Pre-op evaluation (Acute) KATHLEEN on CPAP (Acute)- patient denies. States had tonsillectomy and no problems since Cervical radiculopathy (Acute) Hx of chest pain (Acute) High cholesterol (Acute) Hypertension (Acute) Shortness of breath (Acute) Hypoglycemia (Acute) Asthma-COPD overlap syndrome (Acute) Pulmonary nodules (Acute) GERD (gastroesophageal reflux disease) (Acute) COPD (chronic obstructive pulmonary disease) (Acute) Anxiety (Acute) Left shoulder pain. Given IV fentanyl Past Medical History Medical History Shortness of breath Hypoglycemia Asthma-COPD overlap syndrome Pulmonary nodules COPD (chronic obstructive pulmonary disease) Hx of renal calculi Asthma Hx of allergic rhinitis History of esophageal spasm Hx of chest pain Back pain Osteoarthritis of both hips Hx of goiter History of IBS History of colitis Chronic pain High cholesterol Hx of multiple pulmonary nodules Hypertension PTSD (post-traumatic stress disorder) Panic attacks Dysphagia GERD (gastroesophageal reflux disease) Anxiety Family History Family History Father No problems noted. Mother No problems noted. Family history of problems with anesthesia: Yes (PONV. Patient does not want ketamine) Surgical History Surgical History History of surgery on arm H/O shoulder surgery H/O neck surgery Hx of endoscopy Hx of transurethral resection of prostate Hx of tonsillectomy Hx of esophagogastroduodenoscopy Hx of colonoscopy History of nasal surgery Hx of left inguinal hernia repair Hx of cervical discectomy History of Problems with Anesthesia: No Social History Social History Household Members: Other Household Members Other:: Mother Alcohol intake: never Patient Tobacco Use Status: Former Tobacco user Tobacco use type: Cigarette Years Smoked: 30 Second Hand Smoke Exposure: No Current occupational status: unemployed Meds Allergies Allergy/AdvReac Type Severity Reaction Status Date / Time metronidazole [From FLAGYL] Allergy Severe RASH Verified 03/26/24 11:20 tree and shrub pollen [TREE] Allergy Severe Rash Verified 03/26/24 11:20 dexamethasone AdvReac Severe palpitatiio Verified 03/26/24 11:20 ns fluticasone furoate AdvReac Severe palpitations, Verified 03/26/24 11:20 [Breo Ellipta] high BP umeclidinium AdvReac Severe palpitation Verified 03/26/24 11:20 [Incruse Ellipta] s Bee sting Allergy Severe Hives/Difficulty Uncoded 01/30/24 09:48 breathing Clindamycin HCl Allergy Severe Hives Uncoded 01/30/24 09:48 ENVIRONMENTAL Allergy Severe Rash Uncoded 01/30/24 09:48 Home Medications ?Medication ?Instructions ?Recorded ?Confirmed ?Last Taken ?Type levocetirizine 5 mg tablet 5 mg PO DIRECTED 12/23/19 12/02/23 Unknown History cholecalciferol (vitamin D3) 50 05/09/22 01/30/24 Unknown History mcg (2,000 unit) capsule (Vitamin D3) levalbuterol tartrate 45 inhalation 05/09/22 12/02/23 Unknown History mcg/actuation aerosol inhaler nebulizers 10/31/22 12/02/23 Unknown History epinephrine 0.3 mg/0.3 mL 0.3 mg IM anaphylaxis 11/26/22 01/30/24 Unknown History injection, auto-injector lactulose 10 gram/15 mL oral PO 07/21/23 01/30/24 Unknown History solution oxycodone 20 mg tablet 20 mg PO TID PRN Pain (Scale Score 07/21/23 12/02/23 04/28/24 History 7-10) semaglutide (weight loss) 2.4 mg subcut 04/09/24 Unknown History mg/0.75 mL subcutaneous pen injector (Anish) Exam Height,Weight and Vital Signs: Height 5 ft 7 in Weight 81 kg Vital Signs Temp Pulse Resp BP Pulse Ox O2 Del Method 98 F 63 16 134/77 98 Room Air 04/28/24 10:55 04/28/24 10:55 04/28/24 10:55 04/28/24 10:55 04/28/24 10:55 04/28/24 10:55 Pertinent Lab Results Pertinent Lab Results: Laboratory Tests 03/26/24 11:55 WBC 7.6 Hgb 15.2 Hct 46.9 Plt Count 274 Sodium 139 Potassium 4.1 Chloride 105 Carbon Dioxide 27 BUN 15 Creatinine 0.82 Airway Mallampati Class: II TM Dist: >3cm Neck ROM: Full Loose/Missing/Broken Teeth: Yes (No teeth bottom. Denies broken or loose teeth) Heart: RRR Lungs: CTAB Assessment and Plan Assessment Anesthesia Assessment: Anesthesia Plan Discussed and Chart Reviewed Final Anesthetic Review Family History of Problems with Anesthesia: Yes (PONV. Patient does not want ketamine) History of Problems with Anesthesia: No NPO: Yes ASA Class: III Final Preanesthetic Review: No Changes in Pt Med Stat, Meds/Allgs Chart Reviewed, Consent Obtained/Reviewed and Anes Risks/Benef Reviewed Patient Risk: Intermediate Procedure Risk: Low Assessment/Block/Sedation in SS: Assess/Block/Sedation-SS Anesthetic Plan Anesthetic Plan: TIVA Disposition: Standard PACU
--- OUTSIDE RECORDS SUMMARY | 2024-04-28 10:44 | XMS_ITS | Clinical Summary ---
Author Organization [facility] Address [address] [place] [address] Care Team Providers Care Stereotype Molder Name Role Phone Mireya Robledo Primary Care Provide r Unavailable Medications Hospital, Clinic, or Other Facility Administered Medication Ordered Dose Route Frequency Start Date End Date Status lidocaine (XYLOCAINE) 4% (40 mg/mL) topical solution 120 mg 120 mg topical Once 11/20/2023 Active Social History Tobacco Use Types Packs/Day Years Used Date Smoking Tobacco: Never Assessed Sex and Gender Information Value Date Recorded Sex Assigned at Male 10/03/2023 10:54 AM EDT Legal Sex Male 4:56 PM EDT Gender Identity Male 10/03/2023 10:54 AM EDT Sexual Orientation Straight 11/19/2023 4: 26 PM EDT Plan of Treatment Health Maintenance Due Date Last Done Comments Cologuard 1967 Colon Cancer Screening 1967 Colonoscopy 1967 FOBT / Fit Test 1967 HIV Screening 1967 Sigmoidoscopy 1967 Hepatitis B Vaccines (1 of 3 - 19+ 3-dose series) 07/16/1986 COVID-19 Vaccine () 11/23/2023 01/16/2021, 05/17/2020, 04/19/2020 Alcohol/Substance Use Screening 03/24/2024 Social Drivers of Health Annual Screening 03/24/2024 DTaP,Tdap,and Td Vaccines (2 - Td or Tdap) 11/30/2025 12/01/2015 RSV Vaccine (60+ years old and patients) (1 - 1-dose 75+ series) 07/16/2042 Pneumococcal Vaccine: Pediatric (0-5 Years) and At-Risk Patients (6-64 Years) Aged Out 04/30/2017, 11/17/2014 No longer eligibl e based on patient's age to complete this topic Zoster Vaccines Completed 11/08/2017, 07/24/2017 Influenza Vaccine Completed 10/29/2023, , 11/08/2021, Additional history exists Insurance MEDICARE [facility] Care Teams Stereotype Molder Relationship Specialty Start Date End Date Mireya Robledo [address] [place] [phone] PCP - General Internal Medicine 11/04/23
--- OUTSIDE RECORDS SUMMARY | 2024-04-28 10:44 | XMS_ITS | Clinical Summary ---
Author Organization [facility] Address [address] [place] [address] Care Team Providers Care Scanner Supervisor Name Role Phone Mireya Robledo MD Primary Care Prov ider Social History Tobacco Use Types Packs/Day Years Used Date Smoking Tobacco: Never Assessed Sex and Gender Information Value Date Recorded Sex Assigned at Not on file Gender Identity Not on file Sexual Orientation Not on file Job Start Date Occupation Industry Not on file Not on file Not on file Plan of Treatment Health Maintenance Due Date Last Done Comments Hepatitis B Vaccines (1 of 3 - 3-dose series) 1967 Hepatitis C Screening 1967 Depression Screening 1979 Preventative Health Evaluation 07/16/1985 DTap / Tdap / Td (1 - Tdap) 07/16/1986 Colon Cancer Screening (Colonoscopy) 07/16/2012 Shingrix-Zoster Vaccine (1 o f 2) 07/16/2017 COVID-19 Vaccine (2 - 2023-2 5 season) 2023 04/19/2020 Influenza Vaccine (#1) 2023 0, 02/02/2008 Pneumococcal Vaccine Aged Out No long er eligible based on patient's age to complete this topic RSV Ped < 20 months Aged Out No longe r eligible based on patient's age to complete this topic Care Teams Scanner Supervisor Relationship Specialty Start Date End Date Mireya Robledo MD PCP - General Internal Medicine 05/26/20
--- OUTSIDE RECORDS SUMMARY | 2024-04-28 10:44 | XMS_ITS | Clinical Summary ---
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 2. Recommend repeat annuallow-dose screening CT in 12 months as per guidelines. Dictating Physician: MAGDI ARAMBULA MD Electronically Signed by: MAGDI ARAMBULA MD Dic Date/Time: 06/27/23 1044 Sign date/Time: 06/27/23 1120 Risa Irving MD IMG CT PROCEDURES * Colonoscopy (05/09/2022) Colonoscopy abstracted, no interpretation Anatomical Region Laterality Modality Other Historical Provider MD SADIE Fleming from Last 3 Months or Most Recently Relevant to Health Maintenance Care Teams Warehouse Logistics Manager Relationship Specialty Start Date End Date Mireya Robledo MD [address] [place] [address] PCP - General Internal Medicine 02/02/24
--- OUTSIDE RECORDS SUMMARY | 2024-04-28 10:44 | XMS_ITS | Encounter Summary ---
Author Organization [facility] Address [address] [place] [address] Care Team Providers Care Bioengineer Name Role Phone Mireya Robledo MD Primary Care Prov ider Reason for Visit * Reason Comments Shoulder Pain Encounter Details Date Type Department Care Team (Late st Contact Info) Description 04/22/2024 9:25 AM EST - 04/22/2024 10:20 AM EST Emergency [facility] [address] [place] [address] Discharge Disposition: Home or Self Care Social History Tobacco Use Types Packs/Day Years [...] file Not on file Not on file documented as of this encounter Last Filed Vital Signs Vital Sign Reading [...] Mass Index 27.88 04/22/2024 9:46 AM EST documented in this encounter Medications at Time of Discharge Medication Sig Dispensed Refills Start Date End Date Daily-Ashley, with folic acid, 400 mcg tablet TAKE 1 TABLET BY MOUTH EVERY DAY 90 tablet 1 02/27/2024 diazePAM (VALIUM) 5 mg tablet TAKE 1 TABLET BY MOUTH TWICE A DAY 56 tablet 2 03/01/2024 diazePAM (VALIUM) 5 mg tablet Take 1 tablet (5 mg total) by mouth 2 (two) times a day. Max Daily Amount: 10 mg oxyCODONE (ROXICODONE) 20 mg immediate release tablet Take 1 tablet (20 mg total) by mouth 3 (three) times a day. Max Daily Amount: 60 mg 84 tablet 04/07/2024 oxyCODONE (ROXICODONE) 5 mg immediate release tablet Take 1 tablet (5 mg total) by mouth every 8 (eight) hours if needed for severe pain (For breakthrough pain). Max Daily Amount: 15 mg 84 tablet 04/07/2024 documented as of this encounter Discharge Disposition Disposition Code Departure Means Destination Home or Self Care documented in this encounter Progress Notes * Vignesh Dos Santos RN - 04/22/2024 9:26 AM EST Pt presents for left shoulder pain, states has a tear there . Pt reports 2 previous surgeries on same shoulder and may have another in may. Pt is ambulatory, a/ox3 documented in this encounter Plan of Treatment Upcoming Encounters Date Type Department Care Team (Late st Contact Info) Description 05/12/2024 10:00 AM EST Office Visit Orthopedic Surgery [facility] 250 175 [facility] 250 [place] [phone] Mina Eckert DPM 175 [facility] 250 [place] [address] 05/26/2024 9:30 AM EST Office Visit Orthopedic Surgery [facility] 160 175 [facility] 160 [place] [phone] Akin Delacruz MD 175 [facility] 160 [place] [address] 05/28/2024 9:30 AM EST Office Visit Adult Medicine - [place] 230 [place] [phone] Logan Romero PA 230 [place] [address] 06/03/2024 9:45 AM EDT Office Visit Bariatric Surgery - [place] [address] [phone] Sahara Villela MD [address] [address] 09/17/2024 11:00 AM EDT Office Visit Adult Medicine - [place] 230 [place] [phone] Mireya Robledo MD 230 [place] [address] documented as of this encounter Visit Diagnoses Not on filedocumented in this encounter Care Teams Bioengineer Relationship Specialty Start Date End Date Mireya Robledo MD 230 [place] [address] PCP - General Internal Medicine 02/02/24 documented as of this encounter
--- OUTSIDE RECORDS SUMMARY | 2024-04-28 10:44 | XMS_ITS | Encounter Summary ---
Author Organization [facility] Address [address] [place] [address] Care Team Providers Care Junior Linux Systems Administrator Name Role Phone Mireya Robledo MD Primary Care Prov ider Reason for Visit * Reason Onset Date Comments Triage Call Back 04/23/2024 Inflammation Es ophagus Encounter Details Date Type Department Care Team ([facility] st Contact Info) Description 04/23/2024 Telephone Adult [facility] [address] [place] [address] Mireya Figueroa [place] Triage Call Back (Inflammation Esophagus ) Social History Tobacco Use Types Packs/Day Years [...] on file documented as of this encounter Progress Notes * Raymundo Stovall RN - 04/23/2024 11:30 AM EST Pt advised of provider message , pt states that he never had an xray , appointment scheduled * Mireya Robledo MD - 04/23/2024 11:18 AM EST No he just went to the ER * Raymundo Stovall RN - 04/23/2024 11:07 AM EST Pt is requesting chest xray for oesophagus ....NO? * Mireya Figueroa MA - 04/23/2024 10:56 AM EST - Pt is currently in the parking lot - states he is having issues with his esophagus - requesting a Chest Xray to be ordered - pt states there is also inflammation - advised pt to wait for a call back from Triage. Please call patient at [phone] documented in this encounter Plan of Treatment Upcoming Encounters Date Type Department Care Team (Late st Contact Info) Description 05/12/2024 10:00 AM EST Office Visit Orthopedic Surgery [facility] [address] [facility] 250 [place] [phone] Mina Eckert DPDanisha [address] [address] 05/26/2024 9:30 AM EST Office Visit Orthopedic Surgery [facility] [address] [facility] 160 [place] [phone] Akin Delacruz MD [address] [address] 05/28/2024 9:30 AM EST Office Visit Adult Medicine [facility] 230 [place] [phone] Logan Romero PA 230 [place] [address] 06/03/2024 9:45 AM EDT Office Visit Bariatric Surgery [facility] [address] [phone] Sahara Villela MD [address] [address] 09/17/2024 11:00 AM EDT Office Visit Adult Medicine - [place] 230 [place] [address] Mireya Robledo MD 230 [place] [address] documented as of this encounter Visit Diagnoses Not on filedocumented in this encounter Care Teams Junior Linux Systems Administrator Relationship Specialty Start Date End Date Mireya Robledo MD 230 [place] [address] PCP - General Internal Medicine 02/02/24 documented as of this encounter
--- OUTSIDE RECORDS SUMMARY | 2024-04-28 10:44 | XMS_ITS | Encounter Summary ---
Author Organization [facility] Address [address] [place] [address] Care Team Providers Care Crystalizer Tender Name Role Phone Mireya Robledo MD Primary Care Prov ider Reason for Visit * Reason Onset Date Comments Results 03/29/2024 EKG, Labs and Xr ay from [facility] ER on 03/26/2023 Encounter Details Date Type Department Care Team (Late st Contact Info) Description 03/29/2024 Telephone Adult Medicine - [place] 230 [place] [phone] Mireya Robledo MD 230 [place] [address] Results (EKG, Labs and Xray from [facility] ER on 03/26/2023 ) Social History Tobacco Use Types Packs/Day [...] as of this encounter Progress Notes * Caroline Ocampo LPN - 04/05/2024 2:35 PM EST Information received form [facility] and put on Dr. Swanson's desk. * Caroline Ocampo LPN - 04/02/2024 1:46 PM EST I faxed over to [facility] a request for information pertaining to your visit there. We will be looking out for the info to forward to Dr. Thank you * Mireya Robledo MD - 04/02/2024 9:43 AM EST I do not have any records. I think the problem was that they were thinking he was talking about hismom * Raymundo Stovall RN - 04/01/2024 5:07 PM EST Do you have the records with results from [facility] * Melanie Lynn - 04/01/2024 4:53 PM EST Pt calling back, very upset Dr. Swanson didn't call him back yet, she could have taken time at lunch to call him. He says he got a DC [employer] message from us saying we were getting mom Aicha's records from [facility] instead of his. He ranted about this and I told him Caroline made a mistake. I also told him it was inappropriate to send a request for his mother's oxy on his MyChart and I closed that encounter as we already sent the RX to the pharmacy for her on 03/26. * Caterina Hoover - 03/29/2024 9:04 AM EST Patient called stating he was in [facility] ER on 03/26/2023 and had EKG, Labs and Xray done. Pt is asking PCP to call him back with test results. Please call documented in this encounter Plan of Treatment Upcoming Encounters Date Type Department Care Team (Late st Contact Info) Description 05/12/2024 10:00 AM EST Office Visit Orthopedic Surgery [facility] 250 175 [facility] 250 [place] [phone] Mina Eckert DPDanisha 175 [facility] 250 [place] [address] 05/26/2024 9:30 AM EST Office Visit Orthopedic Surgery [facility] 160 175 [facility] 160 [place] [address] Akin Delacruz MD 175 [facility] 160 [place] [address] 05/28/2024 9:30 AM EST Office Visit Adult Medicine - [place] 230 [place] [phone] Logan Romero PA 230 [place] [address] 06/03/2024 9:45 AM EDT Office Visit Bariatric Surgery [facility] 175 [facility] 120 [place] [phone] Sahara Villela MD 175 [facility] 120 [place] [address] 09/17/2024 11:00 AM EDT Office Visit Adult Medicine - [place] 230 [place] [address] Mireya Robledo MD 230 [place] [address] documented as of this encounter Visit Diagnoses Not on filedocumented in this encounter Care Teams Crystalizer Tender Relationship Specialty Start Date End Date Mireya Robledo MD 230 [place] [address] PCP - General Internal Medicine 02/02/24 documented as of this encounter
--- OUTSIDE RECORDS SUMMARY | 2024-04-28 10:44 | XMS_ITS | Encounter Summary ---
Author Organization [facility] Address [address] [place] [address] Care Team Providers Care Temple Meat Cutter Name Role Phone Mireya Robledo MD Primary Care Prov ider Encounter Details Date Type Department Care Team (Late Contact Info) Description 04/23/2024 Telephone Adult Medicine [address] [phone] Mireya Figueroa [place] Social History Tobacco Use Types Packs/Day Years [...] on file documented as of this encounter Plan of Treatment Upcoming Encounters Date Type Department Care Team (Late Contact Info) Description 05/12/2024 10:00 AM EST Office Visit Orthopedic Surgery [facility] 250 175 [facility] 250 [place] [phone] Mina Eckert DPM 175 [facility] 250 [place] [address] 05/26/2024 9:30 AM EST Office Visit Orthopedic Surgery [facility] 160 175 [facility] 160 [place] [phone] Akin Delacruz MD 175 [facility] 160 [place] [address] 05/28/2024 9:30 AM EST Office Visit Adult Medicine - [place] 230 [place] [phone] Logan Romero PA 230 [place] [address] 06/03/2024 9:45 AM EDT Office Visit Bariatric Surgery - [place] [address] [phone] Sahara Villela MD [address] [address] 09/17/2024 11:00 AM EDT Office Visit Adult Medicine - [place] 230 [place] [phone] Mireya Robledo MD 230 [place] [address] documented as of this encounter Visit Diagnoses Not on filedocumented in this encounter Care Teams Temple Meat Cutter Relationship Specialty Start Date End Date Mireya Robledo MD 230 [place] [address] PCP - General Internal Medicine 02/02/24 documented as of this encounter
--- OUTSIDE RECORDS SUMMARY | 2024-04-28 10:44 | XMS_ITS | Continuity of Care Document ---
Author Organization [facility] Address [address] [place] [address] Phone Care Team Providers Care Bookseamer Blindstitch Name Role Phone Mars CARRERA FACS RVT [...] Providers Copied on Encounter [facility], [address] [address], [id number], [place] tel:[phone] [facility] No Information Mars CARRERA FACS RVT ANUJA Leal. [address], [address], [facility] [place] [facility] [place], [address], [place]. tel:[phone] Office/Outpt E&M Established 15 Mins [facility], [address] [place] [address] Dr [address], [place], [id number], [place] tel:[phone] [facility] - [place] Venous insufficiency (chronic) (peripheral) 3 Mars CARRERA FACS [facility] Olivier Elvis. [address], [address], [facility] [place], [address], [place]. tel:[phone] Referring Provider: Olivier Crews MD, FACS [facility], Critical access hospital[address] [facility] [place], [address]. tel:[phone] [facility], [address] [place] [address] Dr [address], [place], [id number], [place] tel:[phone] [facility] - [place] Venous insufficiency (chronic) (peripheral)Pa in in right legPain in left leg 3 Mars CARRERA FACS [facility] ANUJA Aguayo Elvis. [address], [address] [facility], [facility] [place], [address], [place]. [phone] Referring Provider: Olivier Crews MD, FACS [facility], Critical access hospital0 [address] [facility], [place], [address]. tel:[phone] Office/Outpt E&M Established 15 Mins [facility], [address] [place] [address] [address], [place], [id number], [place] tel:[phone] [facility] - [place] Body mass index (BMI) 29.0-29.9, adultVenous insufficiency (chronic) (peripheral) 3 Mars CARRERA FACS [facility] Olivier Elvis. [address], [address], [place], [address], [place]. tel:[phone] Referring Provider: Olivier Crews MD, FACS [facility], Critical access hospital0 [address] [facility], [place], [address]. tel:[phone] Family History Family Member Type Diagnosis Age At Onset No Information Payers Payer name Insurance type Covered green party ID Authoriza tion(s) Medicare ERIC JARAMILLO [id number] Medical Assistance ERIC BARLOW [id number] Social History Type Description Quantity Date Captured [...]
--- OUTSIDE RECORDS SUMMARY | 2024-04-28 10:44 | XMS_ITS | Referral Summary ---
Author Organization [facility] Address [address] [place] [address] Care Team Providers Care Team Guide Name Role Phone Mireya Robledo Primary Care [...] 4: 26 PM EDT Plan of Treatment Not on file Insurance MEDICARE [facility] Care Teams Team Guide Relationship Specialty Start Date End Date Mireya Robledo 230 [place] [address] PCP - General Internal Medicine 11/04/23
--- OUTSIDE RECORDS SUMMARY | 2024-04-28 10:44 | XMS_ITS | Encounter Summary ---
Author Organization [facility] Address [address] [place] [address] Care Team Providers Care Housekeeper Nanny Name Role Phone Mireya Robledo MD Primary Care Prov ider Reason for Visit * Reason Onset Date Comments Medication Problem 04/23/2024 Levalbuterol ( Xopenex ) HFA 45 MCG / ACT inhaler Prior Authorization 04/23/2024 Encounter Details Date Type Department Care Team ([facility] st Contact Info) Description 04/23/2024 Telephone Adult Medicine [address] [address] Mireya Figueroa [place] Medication Problem (Levalbuterol ( Xopenex ) HFA 45 MCG / ACT inhaler ); Prior Authorization Social History Tobacco Use Types Packs/Day Years [...] as of this encounter Progress Notes * Mireya Figueroa MA - 04/23/2024 11:12 AM EST - Pt states he went to the pharmacy to garbage pick up man a refill on the Levalbuterol inhaler and was advisedby the pharmacy this medication is no longer covered by his insurance. Asked pt if he contacted hisinsurance and pts states No. - Called [facility], [facility] Levalbuterol needs a Prior Authorization BIN # [id number] PCN # [id number] Group # [id number] ID # [id number] levalbuterol (XOPENEX HFA) 45 MCG/ACT inhaler Route: Inhale 1-2 Puffs into the lungs every 4 hours as needed (as needed). - Inhalation DISP 45 g documented in this encounter Plan of Treatment Upcoming Encounters Date Type Department Care Team (Late st Contact Info) Description 05/12/2024 10:00 AM EST Office Visit Orthopedic Surgery [facility] 250 175 [facility] 250 [place] [address] Mina Eckert DPM [address] [address] 05/26/2024 9:30 AM EST Office Visit Orthopedic Surgery [facility] [address] [phone] Akin Delacruz MD [address] [address] 05/28/2024 9:30 AM EST Office Visit Adult Medicine - [address] [phone] Logan Romero PA [address] [place] [address] 06/03/2024 9:45 AM EDT Office Visit Bariatric Surgery [facility] [address] [phone] Sahara Villela MD [address] [address] 09/17/2024 11:00 AM EDT Office Visit Adult Medicine - [address] [address] Mireya Robledo MD 230 [place], [place] documented as of this encounter Visit Diagnoses Not on filedocumented in this encounter Care Teams Housekeeper Nanny Relationship Specialty Start Date End Date Mireya Robledo MD [address] [place] [address] PCP - General Internal Medicine 02/02/24 documented as of this encounter
--- OUTSIDE RECORDS SUMMARY | 2024-04-28 10:44 | XMS_ITS | Encounter Summary ---
Author Organization [facility] Address [address] [place] [address] Care Team Providers Care Industrial Sweeper Cleaner Name Role Phone Mireya Robledo MD Primary Care Prov ider Reason for Visit * Reason Onset Date Comments Echocardiogram 04/23/2024 Referral 04/23/2024 Encounter Details Date Type Department Care Team (Late st Contact Info) Description 04/23/2024 Telephone Adult Medicine [facility] 230 [place] [phone] Mireya Robledo MD 230 [place] [address] Echocardiogram; Referral Social History Tobacco Use Types Packs/Day Years [...] as of this encounter Progress Notes * Vignesh Jones - 04/23/2024 8:43 AM EST Pt calling in looking for a referral for his annual echocardiogram at [facility]. documented in this encounter Plan of Treatment Upcoming Encounters Date Type Department Care Team (Late st Contact Info) Description 05/12/2024 10:00 AM EST Office Visit Orthopedic Surgery - [place] 250 175 [facility] [address] [place] [address] Mina Eckert, DPM 175 [facility] 250 [place] [address] 05/26/2024 9:30 AM EST Office Visit Orthopedic Surgery - [place] 160 175 [facility] 160 [place] [address] Akin Delacruz MD 175 [facility] 160 [place] [address] 05/28/2024 9:30 AM EST Office Visit Adult Medicine - [place] 230 [place] [phone] Logan Romero PA 230 [place] [address] 06/03/2024 9:45 AM EDT Office Visit Bariatric Surgery - [place] 175 [facility] 120 [place] [phone] Sahara Villela MD 175 [facility] 120 [place] [address] 09/17/2024 11:00 AM EDT Office Visit Adult Medicine - [place] 230 [place] [phone] Mireya Robledo MD 230 [place] [address] documented as of this encounter Visit Diagnoses Not on filedocumented in this encounter Care Teams Industrial Sweeper Cleaner Relationship Specialty Start Date End Date Mireya Robledo MD 230 [place] [address] PCP - General Internal Medicine 02/02/24 documented as of this encounter
--- OUTSIDE RECORDS SUMMARY | 2024-04-28 10:44 | XMS_ITS | Encounter Summary ---
Author Organization [facility] Address [address] [place] [address] Care Team Providers Care Plane Captain Name Role Phone Mireya Robledo MD Primary Care Prov ider Encounter Details Date Type Department Care Team ([facility] st Contact Info) Description 04/07/2024 Telephone Adult Medicine - [place] [address] [place] [address] Carole Connell MA Social History Tobacco Use Types Packs/Day [...] as of this encounter Progress Notes * Carole ERIC Connell - 04/07/2024 8:52 AM EST Medication request (s) pended for review DUE 04/09/24 Last appt - 02/25/24 Next appt - 05/28/24 03/12/2024 03/12/2024 03/12/2024 1 Oxycodone Hcl (Ir) 20 Mg Tab 84 28 [facility] [id number] [facility] (1964) 0/0 90.00 MME [place] 03/12/2024 03/12/2024 03/12/2024 1 Oxycodone Hcl (Ir) 5 Mg Tablet 84 28 [facility] [id number] [facility] (1964) 0/0 22.50 MME [place] 03/01/2024 03/01/2024 03/11/2024 1 Diazepam 5 Mg Tablet 56 28 [facility] [id number] [facility] (1965) 0/2 1.00 LME [place] 02/25/2024 02/25/2024 02/25/2024 1 Oxycodone-Acetaminophen 5-325 56 28 [facility] [id number] [facility] (1964) 0/0 15.00 MME [place] 02/13/2024 02/13/2024 02/13/2024 1 Oxycodone Hcl (Ir) 20 Mg Tab 84 28 [facility] [id number] [facility] (1964) 0/0 90.00 M[place] 02/13/2024 02/13/2024 02/13/2024 1 Oxycontin Er 20 Mg Tablet 56 28 [facility] [id number] [facility] (1964) 0/0 60.00 [place] 01/16/2024 01/16/2024 01/16/2024 1 Oxycodone Hcl (Ir) 20 Mg Tab 84 28 [facility] [id number] [facility] (1964) 0/0 90.00 [place] 01/16/2024 01/16/2024 01/16/2024 1 Oxycontin Er 20 Mg Tablet 56 28 [facility] [id number] [facility] (1964) 0/0 60.00 M[place] 12/19/2023 12/19/2023 12/19/2023 1 Oxycodone Hcl (Ir) 20 Mg Tab 84 28 [facility] [id number] [facility] (1964) 0/0 90.00 [place] 12/19/2023 12/19/2023 12/19/2023 1 Oxycontin Er 20 Mg Tablet 56 28 [facility] [id number] [facility] (1964) 0/0 60.00 [place] 11/21/2023 11/21/2023 11/21/2023 1 Oxycodone Hcl (Ir) 20 Mg Tab 84 28 [facility] [id number] [facility] (1964) 0/0 90.00 [place]ME [place] 11/21/2023 11/21/2023 11/21/2023 1 Oxycontin Er 20 Mg Tablet 56 28 [facility] [id number] [facility] (1964) 0/0 60.00 [place] 10/24/2023 10/24/2023 10/24/2023 1 Oxycodone Hcl (Ir) 20 Mg Tab 84 28 [facility] [id number] [facility] (1965) 0/0 90.00 [place] 10/24/2023 10/24/2023 10/24/2023 1 Oxycontin Er 20 Mg Tablet 56 28 [facility] [id number] [facility] (1965) 0/0 60.00 [place] 09/26/2023 09/26/2023 09/26/2023 1 Oxycodone Hcl (Ir) 20 Mg Tab 84 28 [facility] [id number] [facility] (1964) 0/0 90.00 MME [place] documented in this encounter Plan of Treatment Upcoming Encounters Date Type Department Care Team (Late st Contact Info) Description 05/12/2024 10:00 AM EST Office Visit Orthopedic Surgery [facility] 250 175 [facility] 250 [place] [phone] Mina Eckert DPM 175 [facility] 250 [place] [address] 05/26/2024 9:30 AM EST Office Visit Orthopedic Surgery [facility] 160 175 [facility] 160 [place] [address] Akin Delacruz MD [address] [address] 05/28/2024 9:30 AM EST Office Visit Adult Medicine - [place] [address] [place] [address] Logan Romero PA [address] [place] [address] 06/03/2024 9:45 AM EDT Office Visit Bariatric Surgery [facility] [address] [phone] Sahara Villela MD 175 [facility] 120 [place] [address] 09/17/2024 11:00 AM EDT Office Visit Adult Medicine - [place] [address] [place] [address] Mireya Robledo MD 230 [place] [address] documented as of this encounter Visit Diagnoses Not on filedocumented in this encounter Care Teams Plane Captain Relationship Specialty Start Date End Date Mireya Robledo MD 230 [place] [address] PCP - General Internal Medicine 02/02/24 documented as of this encounter
[2024-04-28 10:55] VITALS: BP 134/77; PULSE 63; RESP 16; TEMP 36.6; O2SAT 98; BMI 28.0
[2024-04-28] MEDS: Lactated Ringers 1,000 ML 100 ML IVCONT (11:08)
--- NOTE | 2024-04-28 12:26 | PC.NURSE ---
pt unhappy about being called in early and having a long wait time. charge master analyst aware and career development manager varun to bedside.
--- NOTE | 2024-04-28 12:50 | P.HPSUR_ITS ---
Pre-Procedural Eval Section A - 24 Hr Update-Section A only Date of Service: 04/28/24 Section B - Complete if H&P > 30 days Chief Complaint: Dysphagia, unspecified Relevant Family History (Specify if Yes): No Relevant Social History: None Present Medications: see Short Stay Collaborative assessment Medical History: Significant History (Shortness of breath Hypoglycemia Asthma- COPD overlap syndrome Pulmonary nodules COPD (chronic obstructive pulmonary disease) Hx of renal calculi Asthma Hx of allergic rhinitis History of esophageal spasm Hx of chest pain Back pain Osteoarthritis of both hips Hx of go iter History of IBS History of co) History of Previous Operations: Relevant previous surgery/procedure and date(s) (History of surgery on arm H/O shoulder surgery H/O neck surgery Hx of endoscopy Hx of transurethral resection of prostate Hx of tonsillectomy Hx of esophagogastroduodenoscopy Hx of colonoscopy History of nasal surgery Hx of left inguinal hernia repair Hx of cervical discectomy) Allergies: Allergies Allergy/AdvReac Type Severity Reaction Status Date / Time metronidazole [From FLAGYL] Allergy Severe RASH Verified 03/26/24 11:20 tree and shrub pollen [TREE] Allergy Severe Rash Verified 03/26/24 11:20 dexamethasone AdvReac Severe palpitatiio Verified 03/26/24 11:20 ns fluticasone furoate AdvReac Severe palpitations, Verified 03/26/24 11:20 [Breo Ellipta] high BP umeclidinium AdvReac Severe palpitation Verified 03/26/24 11:20 [Incruse Ellipta] s Bee sting Allergy Severe Hives/Difficulty Uncoded 01/30/24 09:48 breathing Clindamycin HCl Allergy Severe Hives Uncoded 01/30/24 09:48 ENVIRONMENTAL Allergy Severe Rash Uncoded 01/30/24 09:48 Review of Systems Sugical H&P ROS: Negative: Constitution, Cardiovascular, Respiratory, Neurological, Psychiatric, Hem-Onc, Allergic/Immunologic, Gastrointestinal, Genitourinary, Musculoskeletal, Integumentary, Endocrine and Eyes/Ears/Nose/Throat Exam Surgical H&P Exam: Normal: HEENT, Normal: Heart, Normal: Lungs, Normal: Extremities, Normal: Abdomen, Normal: Skin and Normal: Neurological Plan Diagnosis/Plan: Unchanged I have reviewed the history and physical and performed a pertinent physical examination on my patient. No changes have occurred unless specified. Time Spent With Patient Time: Total time managing care of this patient today ____ minutes.
--- NOTE | 2024-04-28 13:23 | W.PM.OPN ---
Operative Note Operative Note Date of Service: 04/28/24 Narrative: Procedure Description: EGD Indication: dysphagia Anesthesia: MAC FLEXIBLE TRANSORAL UPPER GASTROINTESTINAL ENDOSCOPY UPPER ENDOSCOPY Consent: Indications for the procedure and potential complications of bleeding, perforation, reaction to medications and missed diagnosis were discussed with the patient and informed consent was obtained. Instrument: Olympus GIF H 190 J mid size upper endoscope Monitoring: Vital signs and clinical assessment, continuous EKG monitoring, Pulse oximetry, Carbon Dioxide monitoring and blood pressure monitoring were done throughout the procedure. Procedure: The patient was placed in the left lateral decubitis position and pre-procedure medications were administered and a bite block was placed. The endoscope was inserted into the mouth and advanced under direct vision to the third part of duodenum. A careful inspection was made as the upper endoscope was withdrawn including a retroflexed examination of the proximal stomach; Findings and interventions are described below. Findings: Larynx:normal Esophagus: GE junction at 40 cm, diaphragm hiatus at 40 cm, dilation done with balloon at LES and UES to 20 mm, no tear seen. bx taken from distal and proximal esophagus as well as GEJ Stomach: Patchy erythema. Grade 2 flap valve on retroflexed examination of the cardia. Partial wrap from prior fundoplication noted, scattered fundic gland polyps, some of these were removed with cold snare to confirm diagnosis. Pylorus was tight and dilated using 20 mm wire gudied balloon, no tears seen Duodenum: Normal bulb and descending duodenum, Intervention: balloon dilation, biopsy Impression/Findings: fundic gland polyps gastritis PLAN: magic mouthwash for 1 week cont PPI
[2024-04-28 13:30] VITALS: BP 104/69; PULSE 83; RESP 18; TEMP 36.3; O2SAT 95
[2024-04-28] MEDS: Mag&Al/Sim/Diphenhyd/Lidocaine 10 ML ORAL.SUSP PO (13:44)
[2024-04-28 13:46] VITALS: BP 119/83; PULSE 87; RESP 16; TEMP 36.3; O2SAT 95
== END 2024-04-28 14:20 | disposition home or self-care (01) ==
PROVIDERS: PCP Internal Medicine; Visit Provider Internal Medicine Gastroenterology
PROC: (CPT 43245; principal; 2024-04-28 13:40)
DX: R13.10 Dysphagia, unspecified (principal); K31.7 Polyp of stomach and duodenum; K29.60 Other gastritis without bleeding; K44.9 Diaphragmatic hernia without obstruction or gangrene; K21.9 Gastro-esophageal reflux disease without esophagitis; G89.29 Other chronic pain; E78.00 Pure hypercholesterolemia, unspecified; G47.33 Obstructive sleep apnea (adult) (pediatric); Z88.8 Allergy status to other drugs, medicaments and biological substances; Z88.1 Allergy status to other antibiotic agents; Z98.890 Other specified postprocedural states; Z87.891 Personal history of nicotine dependence; Z56.0 Unemployment, unspecified
CPT/HCPCS: 43245; 43251; 43249; 43239; 88305; 88313; 88342; C1726; J2003; J2250; J2704; J3010

== ENCOUNTER → 2024-04-28 09:54 | Outpatient (BNV) | payer MEDICARE, MEDICAID, SELFPAY | PROVIDERS: PCP Internal Medicine; Visit Provider Internal Medicine Gastroenterology | DX: R13.10 Dysphagia, unspecified (principal); K31.7 Polyp of stomach and duodenum; K31.1 Adult hypertrophic pyloric stenosis; K29.70 Gastritis, unspecified, without bleeding | CPT/HCPCS: 43239; 43245; 43249; 43251 ==

== ENCOUNTER 2024-05-26 07:51 | Outpatient (REF) | payer MEDICARE, MEDICAID, SELFPAY ==
--- NOTE | ~2024-05-26 | FL_ITS ---
EXAMINATION: XR BARIUM SWALLOW CLINICAL INFORMATION: Pain while swallowing. COMPARISON: None available. TECHNIQUE: Routine upright barium swallow with thin and thick barium and prone lying thick barium was performed. FINDINGS: Bilateral administration of thin and thick barium in upright view there is normal propagation bolus from the oral cavity through the pharynx, esophagus and the stomach without obstruction or narrowing. There is no extraluminal extravasation of barium visualized. No laryngeal penetration or aspiration. There is mild retention of barium in the piriform sinuses. On placing patient prone lying and oral administration of thick barium there is normal propagation bolus without obstruction. There is a small sliding hiatal hernia mild gastroesophageal reflux. FLUOROSCOPY TIME: 1.46 minutes DOSE AREA PRODUCT: 861 uGy-m2 (microgray-meter squared) FL/FL barium swallow IMPRESSION: Small sliding hiatal hernia with moderate gastroesophageal reflux. Electronically signed by: Osiel Sparks MD 05/26/2024 08:46 AM [facility]
--- OUTSIDE RECORDS SUMMARY | 2024-05-26 07:55 | XMS_ITS | Encounter Summary ---
Author Organization [facility] Address [address] [place] [address] Care Team Providers Care Veneer Taping Machine Operator Name Role Phone Riccardo Robledo MD Primary Care Provider Olga Ochoa MD Unavailable Mina DominguezC Unavailable [phone] Addison Winslow PA-C Unavailable [phone] June Denton PA-C Unavailable [phone] Nichole Otto MD Unavailable [phone] Encounter Details Date Type Department Care Team Description 02/10/2020 Controlled Substance Contract with Plan Medical Records [address] [place] [id number] Abstract, Provider Social History Tobacco Use Types Packs/Day Years Used Date Smoking Tobacco: Former Cigarettes 1 25 Smokeless Tobacco: Never Alcohol Use Standard Drinks/Week Comments Yes 0 (1 standard drink = 0.6 oz pur e alcohol) Sex Assigned at Date Recorded Not on file Job Start Date Occupation Industry Not on file Not on file Not on file COVID-19 Exposure Response Date Recorded In the last month, have you been in contact with someone who was confirmed or suspected to have Coronavirus / COVID-19? No / Unsure 02/07/2020 1:56 PM EST documented as of this encounter Plan of Treatment Not on file documented as of this encounter Visit Diagnoses Not on filedocumented in this encounter Care Teams Veneer Taping Machine Operator Relationship Specialty Start Date End Date Riccardo Robledo, [address] [place] [address] PCP - General Internal Medicine 12/28/19 Olga Ochoa MD [address] [place] [address] Specialist Lung Cancer Solutions Operator 03/07/21 Mina Dominguez PA-C 299 [facility] 410 [place] [address] Specialist Thoracic Surgery 04/29/22 Addison Winslow PA-C 175 [facility] [address] [place] [address] Specialist Neurosurgery 05/02/23 June Denton PA-C [address] [address] Specialist Neurosurgery 05/02/23 Nichole Otto MD 175 [facility] 300 [place] [address] Surgeon Neurosurgery 05/02/23 documented as of this encounter
--- OUTSIDE RECORDS SUMMARY | 2024-05-26 07:55 | XMS_ITS | Encounter Summary ---
Author Organization [facility] Address [address] [place] [address] Care Team Providers Care Aged Or Disabled Carer Name Role Phone Riccardo Robledo MD Primary Care Provider [phone] Olga Ochoa MD Unavailable Mina Dominguez-C Unavailable Addison Winslow PA-C Unavailable June Denton PA-C Unavailable Nichole Otto MD Unavailable [phone] Encounter Details Date Type Department Care Team Description 12/23/2023 Pt. Non Urgent Medical Question [facility] 175 [facility] [address] [place] [address] Akin Delacruz MD 175 [facility] [address] [place], [place] [phone] Social History Tobacco Use Types Packs/Day Years Used Date Smoking Tobacco: Former Cigarettes 1 25 Q uit: 03/24/2014 Passive Smoke Exposure: Never Smokeless Tobacco: Never Alcohol Use Standard Drinks/Week [...] on filedocumented in this encounter Care Teams Aged Or Disabled Carer Relationship Specialty Start Date End Date Riccardo Robledo MD [address] [place] [address] PCP - General Internal Medicine 12/28/19 Olga Ochoa MD [address] [place] [address] Specialist Lung Cancer Underground Drill Operator 03/07/21 Mina Dominguez PA-C 299 [facility] [address] [place] [address] Specialist Thoracic Surgery 04/29/22 Addison Winslow PA-C 175 [facility] [address] [place] [address] Specialist Neurosurgery 05/02/23 June Denton PA-C 175 [facility] 300 [place] [address] Specialist Neurosurgery 05/02/23 Nichole Otto MD 175 [facility] 300 [place] [address] Surgeon Neurosurgery 05/02/23 documented as of this encounter
--- OUTSIDE RECORDS SUMMARY | 2024-05-26 07:55 | XMS_ITS | Encounter Summary ---
Author Organization [facility] Address [address] [place] [address] Care Team Providers Care Internet Network Specialist Name Role Phone Riccardo Robledo MD Primary Care Provider [phone] Olga Ochoa MD Unavailable Mina Dominguez-C Unavailable [phone] Addison Winslow-C Unavailable [phone] June Denton PA-C Unavailable [phone] Nichole Otto MD Unavailable [phone] Encounter Details Date Type Department Care Team Description 12/19/2023 Pt. Non Urgent Medic al Question Adult Medicine - [place] [address] [place] [address] Riccardo Robledo MD [address] [place] [address] Social History Tobacco Use Types Packs/Day Years [...] on filedocumented in this encounter Care Teams Internet Network Specialist Relationship Specialty Start Date End Date Riccardo Robledo MD [address] [place] [address] PCP - General Internal Medicine 12/28/19 Olga Ochoa MD [address] [place] [address] Specialist Lung Cancer Forensic Examiner 03/07/21 Mina Dominguez PA-C 299 [facility] [address] [place] [address] Specialist Thoracic Surgery 04/29/22 Addison Winslow PA-C 175 [facility] 300 [place] [address] Specialist Neurosurgery 05/02/23 June Denton PA-C 175 [facility] 300 [place] [address] Specialist Neurosurgery 05/02/23 Nichole Otto MD 175 [facility] 300 [place] [address] Surgeon Neurosurgery 05/02/23 documented as of this encounter
--- OUTSIDE RECORDS SUMMARY | 2024-05-26 07:55 | XMS_ITS | Encounter Summary ---
Author Organization [facility] Address [address] [place] [address] Care Team Providers Care Dewaterer Operator Name Role Phone Riccardo Robledo MD Primary Care Provider Olga Ochoa MD Unavailable Mina DominguezC Unavailable [phone] Addison Winslow PA-C Unavailable June Denton PA-C Unavailable [phone] Nichole Otto MD Unavailable [phone] Encounter Details Date Type Department Care Team Description 02/10/2020 [facility] Medical Records [address] [place] [address] Abstract, Provider Social History Tobacco Use Types [...] on filedocumented in this encounter Care Teams Dewaterer Operator Relationship Specialty Start Date End Date Riccardo Robledo, [address] [place] [address] PCP - General Internal Medicine 12/28/19 Olga Ochoa MD [address] [place] [address] Specialist Lung Cancer Merchandise Examiner 03/07/21 Mina Dominguez PA-C 299 [facility] [address] [place] [address] Specialist Thoracic Surgery 04/29/22 Addison Winslow PA-C 175 [facility] [address] [place] [address] Specialist Neurosurgery 05/02/23 June Denton PA-C 175 [facility] [address] [place] [address] Specialist Neurosurgery 05/02/23 Nichole Otto MD 175 [facility] [address] [place] [address] Surgeon Neurosurgery 05/02/23 documented as of this encounter
--- OUTSIDE RECORDS SUMMARY | 2024-05-26 07:55 | XMS_ITS | Encounter Summary ---
Author Organization [facility] Address [address] [place] [address] Care Team Providers Care Plaster Molder Name Role Phone Riccardo Robledo MD Primary Care Provider [phone] Olga Ochoa MD Unavailable Mina Dominguez PA-C Unavailable [phone] Addison Winslow PA-C Unavailable [phone] June Denton PA-C Unavailable Nichole Otto MD Unavailable [phone] Encounter Details Date Type Department Care Team Description 01/14/2024 Pt. Non Urgent Medical Question [facility] [address] [address] Mina Eckert DPM [address] [address] Social History Tobacco Use Types Packs/Day Years [...] on filedocumented in this encounter Care Teams Plaster Molder Relationship Specialty Start Date End Date Riccardo Robledo MD [address] [place] [address] PCP - General Internal Medicine 12/28/19 Olga Ochoa MD [address] [place] [address] Specialist Lung Cancer Hydroelectric Operator 03/07/21 Mina Dominguez PA-C 299 [facility] [address] [place] [address] Specialist Thoracic Surgery 04/29/22 Addison Winslow PA-C 175 [facility] [address] [place] [address] Specialist Neurosurgery 05/02/23 June Denton PA-C 175 [facility] 300 [place] [address] Specialist Neurosurgery 05/02/23 Nichole Otto MD 175 [facility] [address] [place] [address] Surgeon Neurosurgery 05/02/23 documented as of this encounter
--- OUTSIDE RECORDS SUMMARY | 2024-05-26 07:55 | XMS_ITS | Encounter Summary ---
Author Organization [facility] Address [address] [place] [address] Care Team Providers Care Stack Clerk Name Role Phone Riccardo Robledo MD Primary Care Provider [phone] Olga Ochoa MD Unavailable Mina Dominguez-C Unavailable Addison Winslow-C Unavailable [phone] June Denton PA-C Unavailable Nichole Otto MD Unavailable [phone] Encounter Details Date Type Department Care Team Description 12/15/2023 Pt. Non Urgent Medic al Question Adult Medicine - [place] [address] [place] [address] Riccardo Robledo MD [address] [place] [address] Social History Tobacco Use Types Packs/Day Years [...] on file documented as of this encounter Miscellaneous Notes * Telephone Encounter - Mary Austin L.P.N. - 12/15/2023 10:54 AM EDT From: Jv Monroy To: Will Robledo Sent: 12/15/2023 10:02 AM EDT Subject: Shoulder DR Swanson Did you did the referral for my shoulder replacement and did you send the cream for my shoulder [email or web address] Thank you documented in this encounter Plan of Treatment Not on file documented as of this encounter Visit Diagnoses Not on filedocumented in this encounter Care Teams Stack Clerk Relationship Specialty Start Date End Date Riccardo Robledo MD [address] [place] [address] PCP - General Internal Medicine 12/28/19 Olga Ochoa MD [address] [place] [address] Specialist Lung Cancer Veterans Service Officer 03/07/21 Mina Dominguez PA-C 299 [facility] [address] [place] [address] Specialist Thoracic Surgery 04/29/22 Addison iWnslow PA-C 175 [facility] [address] [place] [address] Specialist Neurosurgery 05/02/23 June Denton PA-C 175 [facility] [address] [place] [address] Specialist Neurosurgery 05/02/23 Nichole Otto MD 175 [facility] [address] [place] [address] Surgeon Neurosurgery 05/02/23 documented as of this encounter
--- OUTSIDE RECORDS SUMMARY | 2024-05-26 07:56 | XMS_ITS | Encounter Summary ---
Author Organization [facility] Address [address] [place] [address] Care Team Providers Care Social Media Community Manager Name Role Phone Riccardo Robledo MD Primary Care Provider Olga Ochoa MD Unavailable Mina Dominguez PA-C Unavailable [phone] Addison Winslow PA-C Unavailable June Denton-C Unavailable [phone] Nichole Otto MD Unavailable [phone] Reason for Visit * Reason Onset Date Comments Provider Call Back 05/22/2021 Encounter Details Date Type Department Care Team Description 05/22/2021 Telephone Adult Medicine - [place] [address] [place], [place] [id number] Riccardo Robledo MD [address] [place] [address] Provider Call Back Social History Tobacco Use Types Packs/Day Years Used Date Smoking Tobacco: Former Cigarettes 1 25 Q uit: 03/24/2014 Smokeless Tobacco: Never Alcohol [...] or suspected to have Coronavirus / COVID-19? Unable to assess 05/24/2021 9:11 AM EST documented as of this encounter Miscellaneous Notes * Telephone Encounter - Kenzie Beckett M.A. - 05/23/2021 2:11 PM EST Left voicemail asking to return call regarding message below. * Telephone Encounter - Riccardo Robledo MD - 05/22/2021 3:42 PM EST The [facility] does not mean anything in regards to his blood work. It is not a cause for worry. I reviewed his blood work his blood work was normal his blood type is O+ * Telephone Encounter - Millie Payton - 05/22/2021 2:02 PM EST Caller requesting call back from provider: Is the caller the patient? YES If caller is not the patient, what is the callers name? N/A Callers relationship to patient? N/A If person calling is not the patient themselves, is there a verbal release in FYI or permanent comments for this person: NO Reason for call back: Patient states he had labs done yesterday and wants to know what the [facility] means? Caller offered to speak with the nurse for assistance: YES Response: Patient offered to speak with nurse for assistance and patient agreed. Message forwarded to nurse. documented in this encounter Plan of Treatment Not on file documented as of this encounter Visit Diagnoses Not on filedocumented in this encounter Care Teams Social Media Community Manager Relationship Specialty Start Date End Date Riccardo Robledo MD [address] [place] [address] PCP - General Internal Medicine 12/28/19 Olga Ochoa MD [address] [place] [address] Specialist Lung Cancer Dicer Machine Operator 03/07/21 Mina Dominguez PA-C 299 [facility] [address] [place] [address] Specialist Thoracic Surgery 04/29/22 Addison Winslow PA-C 175 [facility] [address] [place] [address] Specialist Neurosurgery 05/02/23 June Denton PA-C 175 [facility] [address] [place] [address] Specialist Neurosurgery 05/02/23 Nichole Otto MD 175 [facility] [address] [place] [address] Surgeon Neurosurgery 05/02/23 documented as of this encounter
--- OUTSIDE RECORDS SUMMARY | 2024-05-26 07:56 | XMS_ITS | Encounter Summary ---
Author Organization [facility] Address [address] [place] [address] Care Team Providers Care Frame Carver Spindle Name Role Phone Riccardo Robledo MD Primary Care Provider [phone] Olga Ochoa MD Unavailable Mina Dominguez-C Unavailable Addison Winslow PACecileC Unavailable [phone] June Denton PA-C Unavailable [phone] Nichole Otto MD Unavailable [phone] Encounter Details Date Type Department Care Team Description 06/12/2023 [facility] 175 [facility] [address] [place] [address] Akin Delacruz MD 175 [facility] [address] [place], [place] [id number] Social History Tobacco Use Types Packs/Day Years [...] on filedocumented in this encounter Care Teams Frame Carver Spindle Relationship Specialty Start Date End Date Riccardo Robledo MD [address] [place] [address] PCP - General Internal Medicine 12/28/19 Olga Ochoa MD [address] [place] [address] Specialist Lung Cancer Maintenance Aide 03/07/21 Mina Dominguez PA-C 299 [facility] [address] [place] [address] Specialist Thoracic Surgery 04/29/22 Addison Winslow PA-C 175 [facility] [address] [place] [address] Specialist Neurosurgery 05/02/23 June Denton PA-C 175 [facility] [address] [place] [address] Specialist Neurosurgery 05/02/23 Nichole Otto MD 175 [facility] [address] [place] [address] Surgeon Neurosurgery 05/02/23 documented as of this encounter
--- OUTSIDE RECORDS SUMMARY | 2024-05-26 07:56 | XMS_ITS | Encounter Summary ---
Author Organization [facility] Address [address] [place] [address] Care Team Providers Care Gameroom Technician Name Role Phone Aston Daniel NP Primary Care Provider Unavail able Riccardo Robledo MD Primary Care Provider [phone] Olga Ochoa MD Unavailable Mina Dominguez PA-C Unavailable [phone] Addison Winslow-C Unavailable [phone] June Denton-C Unavailable Nichole Otto MD Unavailable [phone] Encounter Details Date Type Department Care Team Description 04/26/2019 Hospital Medical Records [address] [place] [address] Liborio Nguyễn MD Social History Tobacco Use Types Packs/Day Years [...] on filedocumented in this encounter Care Teams Gameroom Technician Relationship Specialty Start Date End Date Aston Daniel NP PCP - General Family Practice 09/26/17 12/27/19 Riccardo Robledo, [address] [place] [address] PCP - General Internal Medicine 12/28/19 Olga Ochoa MD [address] [place] [address] Specialist Lung Cancer Physician Recruiter 03/07/21 Mina Dominguez PA-C 299 [facility] 410 [place] [phone] Specialist Thoracic Surgery 04/29/22 Addison Winslow PA-C 175 [facility] 300 [place] [address] Specialist Neurosurgery 05/02/23 June Denton PA-C [address] [address] Specialist Neurosurgery 05/02/23 Nichole Otto MD 175 [facility] 300 [place] [address] Surgeon Neurosurgery 05/02/23 documented as of this encounter
--- OUTSIDE RECORDS SUMMARY | 2024-05-26 07:56 | XMS_ITS | Encounter Summary ---
Author Organization [facility] Address [address] [place] [address] Care Team Providers Care Fisheries Management Biologist Name Role Phone Riccardo Robledo MD Primary Care Provider Olga Ochoa MD Unavailable Mina DominguezC Unavailable [phone] Addison WinslowC Unavailable [phone] June Denton PA-C Unavailable [phone] Nichole Otto MD Unavailable [phone] Encounter Details Date Type Department Care Team Description 04/06/2021 Insurance Follow Up Specialist Report Medical Records [address] [place] [address] Johnathan Cerda MD Social History Tobacco Use Types Packs/Day [...] have Coronavirus / COVID-19? No / Unsure 04/05/2021 12:13 PM EST documented as of this encounter Plan of Treatment Not on file documented as of this encounter Visit Diagnoses Not on filedocumented in this encounter Care Teams Fisheries Management Biologist Relationship Specialty Start Date End Date Riccardo Robledo MD 230 [place] [address] PCP - General Internal Medicine 12/28/19 Olga Ochoa MD 230 [place] [address] Specialist Lung Cancer Medical Assembly 03/07/21 Mina Dominguez PA-C 299 [facility] 410 [place] [phone] Specialist Thoracic Surgery 04/29/22 Addison Winslow PA-C 175 [facility] 300 [place] [address] Specialist Neurosurgery 05/02/23 June Denton PA-C 175 [facility] 300 [place] [address] Specialist Neurosurgery 05/02/23 Nichole Otto MD 175 [facility] 300 [place] [address] Surgeon Neurosurgery 05/02/23 documented as of this encounter
--- OUTSIDE RECORDS SUMMARY | 2024-05-26 07:56 | XMS_ITS | Encounter Summary ---
Author Organization [facility] Address [address] [place] [address] Care Team Providers Care Latin Dancer Name Role Phone Riccardo Robledo MD Primary Care Provider Olga Ochoa MD Unavailable Mina Dominguez PA-C Unavailable [phone] Addison Winslow PA-C Unavailable June Denton-C Unavailable Nichole Otto MD Unavailable [phone] Reason for Visit * Reason Onset Date Comments Letter 06/17/2023 Encounter Details Date Type Department Care Team Description 06/17/2023 Telephone Adult Medicine - [place] [address] [place], [place] [phone] Riccardo Robledo MD [address] [place], [place] [id number] Letter Social History Tobacco Use Types Packs/Day Years [...] encounter Miscellaneous Notes * Telephone Encounter - Ree Beatty M.A. - 06/18/2023 2:15 PM EDT Patient is all set with his work note, he will get this from his surgeon. * Telephone Encounter - Riccardo Robledo MD - 06/18/2023 11:25 AM EDT I did not know the patient worked what is his job? I thought he was disabled? * Telephone Encounter - Babita Jain - 06/17/2023 11:14 AM EDT Patient requesting letter to be out of work until he is healed. Not sure if this should go to the surgeon or PCP. Please advise. documented in this encounter Plan of Treatment Not on file documented as of this encounter Visit Diagnoses Not on filedocumented in this encounter Care Teams Latin Dancer Relationship Specialty Start Date End Date Riccardo Robledo MD [address] [place] [address] PCP - General Internal Medicine 12/28/19 Olga Ochoa MD [address] [place] [address] Specialist Lung Cancer Plastic Roller 03/07/21 Mina Dominguez PA-C 299 [facility] 410 [place] [address] Specialist Thoracic Surgery 04/29/22 Addison Winslow PA-C 175 [facility] [address] [place] [address] Specialist Neurosurgery 05/02/23 June Denton PA-C 175 [facility] [address] [place] [address] Specialist Neurosurgery 05/02/23 Nichole Otto MD [address] [place] [address] Surgeon Neurosurgery 05/02/23 documented as of this encounter
--- OUTSIDE RECORDS SUMMARY | 2024-05-26 07:56 | XMS_ITS | Encounter Summary ---
Author Organization [facility] Address [address] [place] [address] Care Team Providers Care Chef Head Name Role Phone Riccardo Robledo MD Primary Care Provider [phone] Olga Ochoa MD Unavailable Mina Dominguez PA-C Unavailable Addison Winslow PA-C Unavailable [phone] June Denton PA-C Unavailable Nichole Otto MD Unavailable [phone] Encounter Details Date Type Department Care Team Description 03/28/2022 Pt. Non Urgent Medic al Question Adult Medicine - [address] [address] Logan Romero PA-C [address] [place] [address] Social History Tobacco Use Types Packs/Day Years [...] Exposure Response Date Recorded In the last 10 days, have yo u been in contact with someone who was confirmed or suspected to have Coronavirus/COVID-19? No / Unsure 03/29/2022 10:01 AM EST documented as of this encounter Miscellaneous Notes * Telephone Encounter - Mary Austin L.P.N. - 03/29/2022 8:37 AM EST From: vJ Monroy To: Danisha Romero Sent: 03/28/2022 7:42 PM EST Subject: Heart Is it possible that you could order some testing on my heart a study to make sure everything is ok because I get these muscle pain in the middle of my chest I don't know if this is related to my problem with my left side and my problem with my esophagus surgery that I had on May of last year tanmay also having problems again with eating a nd drinking it does not go down again this is becoming a big issue again I hope I don't have to have surgery again the doctor who did the surgery I callhim and he order a eating test at [facility] for next month on the six I will see you tomorrow my mom has a appointment with you tomorrow documented in this encounter Plan of Treatment Not on file documented as of this encounter Visit Diagnoses Not on filedocumented in this encounter Care Teams Chef Head Relationship Specialty Start Date End Date Riccardo Robledo MD 230 [place] [address] PCP - General Internal Medicine 12/28/19 Olga Ochoa MD 230 [place] [address] Specialist Lung Cancer Medical Geneticist 03/07/21 Mina Dominguez PA-C 299 [facility] 410 [place] [phone] Specialist Thoracic Surgery 04/29/22 Addison Winslow PA-C 175 [facility] 300 [place] [address] Specialist Neurosurgery 05/02/23 June Denton PA-C 175 [facility] 300 [place] [address] Specialist Neurosurgery 05/02/23 Nichole Otto MD [address] [place] [address] 300 [place] [address] Surgeon Neurosurgery 05/02/23 documented as of this encounter
--- OUTSIDE RECORDS SUMMARY | 2024-05-26 07:56 | XMS_ITS | Encounter Summary ---
Author Organization [facility] Address [address] [place] [address] Care Team Providers Care Bending Press Operator Name Role Phone Riccardo Robledo MD Primary Care Provider Olga Ochoa MD Unavailable Mina Dominguez PA-C Unavailable [phone] Addison Winslow PA-C Unavailable [phone] June Denton PA-C Unavailable [phone] Nichole Otto MD Unavailable [phone] Encounter Details Date Type Department Care Team Description 04/17/2021 [facility] Medical Records [address] [place] [address] Abstract, Provider Social History Tobacco Use Types [...] have Coronavirus / COVID-19? No / Unsure 04/10/2021 10:06 AM EST documented as of this encounter Plan of Treatment Not on file documented as of this encounter Visit Diagnoses Not on filedocumented in this encounter Care Teams Bending Press Operator Relationship Specialty Start Date End Date Riccardo Robledo MD 230 [place] [address] PCP - General Internal Medicine 12/28/19 Olga Ochoa MD 230 [place] [address] Specialist Lung Cancer Admitting Coordinator 03/07/21 Mina Dominguez PA-C 299 [facility] [address] [place] [address] Specialist Thoracic Surgery 04/29/22 Addison Winslow PA-C 175 [facility] 300 [place] [address] Specialist Neurosurgery 05/02/23 June Denton PA-C 175 [facility] 300 [place] [address] Specialist Neurosurgery 05/02/23 Nichole Otto MD 175 [facility] 300 [place] [address] Surgeon Neurosurgery 05/02/23 documented as of this encounter
--- OUTSIDE RECORDS SUMMARY | 2024-05-26 07:56 | XMS_ITS | Encounter Summary ---
Author Organization [facility] Address [address] [place] [address] Care Team Providers Care Business Project Analyst Name Role Phone Riccardo Robledo MD Primary Care Provider [phone] Olga Ochoa MD Unavailable Mina Dominguez PA-C Unavailable Addison Winslow PA-C Unavailable June Denton PA-C Unavailable Nichole Otto MD Unavailable [phone] Encounter Details Date Type Department Care Team Description 05/28/2021 Orders Only Medical Records [address] [place] [address] Olga Ochoa MD [address] [place] [id number] Social History Tobacco Use Types Packs/Day Years [...] on file documented as of this encounter Procedures Procedure Name Priority Date/Time Associated Diagnosis Comments OUTSIDE PATHOLOGY Routine 05/23/2021 documented in this encounter Results * OUTSIDE PATHOLOGY (05/23/2021) Olga Ochoa MD OUTSIDE LAB documented in this encounter Visit Diagnoses Not on filedocumented in this encounter Care Teams Business Project Analyst Relationship Specialty Start Date End Date Riccardo Robledo MD [address] [place] [address] PCP - General Internal Medicine 12/28/19 Olga Ochoa MD [address] [place] [address] Specialist Lung Cancer Painter Hand 03/07/21 Mina Dominguez PA-C [address] [phone] Specialist Thoracic Surgery 04/29/22 Addison Winslow PA-C 175 [facility] 300 [place] [address] Specialist Neurosurgery 05/02/23 June Denton PA-C [address] [address] Specialist Neurosurgery 05/02/23 Nichole Otto MD [address] [address] Surgeon Neurosurgery 05/02/23 documented as of this encounter
--- OUTSIDE RECORDS SUMMARY | 2024-05-26 07:56 | XMS_ITS | Encounter Summary ---
Author Organization [facility] Address [address] [place] [address] Care Team Providers Care Manager Utilization Review Name Role Phone Riccardo Robledo MD Primary Care Provider [phone] Olga Ochoa MD Unavailable Mina DominguezC Unavailable Addison Winslow PA-C Unavailable June Denton PA-C Unavailable Nichole Otto MD Unavailable [phone] Encounter Details Date Type Department Care Team Description 04/02/2023 [place] Hardware Installer Report Medical Records [address] [place] [address] Abstract, Provider Social History Tobacco Use Types [...] on filedocumented in this encounter Care Teams Manager Utilization Review Relationship Specialty Start Date End Date Riccardo Robledo, [address] [place] [address] PCP - General Internal Medicine 12/28/19 Olga Ochoa MD [address] [place] [address] Specialist Lung Cancer Bulker 03/07/21 Mina Dominguez PA-C [address] [address] Specialist Thoracic Surgery 04/29/22 Addison Winslow PA-C 175 [facility] [address] [place] [address] Specialist Neurosurgery 05/02/23 June Denton PA-C 175 [facility] 300 [place] [address] Specialist Neurosurgery 05/02/23 Nichole Otto MD 175 [facility] 300 [place] [address] Surgeon Neurosurgery 05/02/23 documented as of this encounter
--- OUTSIDE RECORDS SUMMARY | 2024-05-26 07:56 | XMS_ITS | Encounter Summary ---
Author Organization [facility] Address [address] [place] [address] Care Team Providers Care Claims Specialist Name Role Phone Riccardo Robledo MD Primary Care Provider [phone] Olga Ochoa MD Unavailable Mina Dominguez PA-C Unavailable Addison Winslow PA-C Unavailable [phone] June Denton-C Unavailable [phone] Nichole Otto MD Unavailable [phone] Encounter Details Date Type Department Care Team Description 01/16/2024 Telephone Adult Medicine - [address] [address] Riccardo Robledo MD [address] [place], [place] [address] Social History Tobacco Use Types Packs/Day Years [...] on filedocumented in this encounter Care Teams Claims Specialist Relationship Specialty Start Date End Date Riccardo Robledo MD [address] [place] [address] PCP - General Internal Medicine 12/28/19 Olga Ochoa MD [address] [place] [address] Specialist Lung Cancer Pai Gow Manager 03/07/21 Mina Dominguez PA-C 299 [facility] 410 [place] [address] Specialist Thoracic Surgery 04/29/22 Addison Winslow PA-C 175 [facility] [address] [place] [address] Specialist Neurosurgery 05/02/23 June Denton PA-C 175 [facility] 300 [place] [address] Specialist Neurosurgery 05/02/23 Nichole Otto MD 175 [facility] 300 [place] [address] Surgeon Neurosurgery 05/02/23 documented as of this encounter
--- OUTSIDE RECORDS SUMMARY | 2024-05-26 07:56 | XMS_ITS | Encounter Summary ---
Author Organization [facility] Address [address] [place] [address] Care Team Providers Care Machine Operator Hay Stacker Name Role Phone Riccardo Robledo MD Primary Care Provider [phone] Olga Ochoa MD Unavailable Mina Dominguez PA-C Unavailable Addison Winslow PA-C Unavailable [phone] June Denton PA-C Unavailable Nichole Otto MD Unavailable [phone] Encounter Details Date Type Department Care Team Description 05/08/2023 Refill Adult Medicine - [address] [address] Logan Romero PA-C 230 [place] [address] Social History Tobacco Use Types Packs/Day Years [...] on filedocumented in this encounter Care Teams Machine Operator Hay Stacker Relationship Specialty Start Date End Date Riccardo Robledo MD 230 [place] [address] PCP - General Internal Medicine 12/28/19 Olga Ochoa MD [address] [place] [address] Specialist Lung Cancer Precision Assembler 03/07/21 Mina Dominguez PA-C 299 [facility] [address] [place] [address] Specialist Thoracic Surgery 04/29/22 Addison Winslow PA-C 175 [facility] 300 [place] [address] Specialist Neurosurgery 05/02/23 June Denton PA-C [address] [facility] [address] [place] [address] Specialist Neurosurgery 05/02/23 Nichole Otto MD 175 [facility] 300 [place] [address] Surgeon Neurosurgery 05/02/23 documented as of this encounter
--- OUTSIDE RECORDS SUMMARY | 2024-05-26 07:56 | XMS_ITS | Encounter Summary ---
Author Organization [facility] Address [address] [place] [address] Care Team Providers Care Pet Care Attendant Name Role Phone Aston Daniel NP Primary Care Provider Unavail able Riccardo Robledo MD Primary Care Provider [phone] Olga Ochoa MD Unavailable Mina Dominguez PA-C Unavailable Addison Winslow PA-C Unavailable June Denton-C Unavailable [phone] Nichole Otto MD Unavailable [phone] Reason for Visit * Reason Onset Date Comments other 04/01/2018 Encounter Details Date Type Department Care Team Description 04/01/2018 Telephone Pulmonology - [address] [place] [address] Johnathan Cerda MD other Social History Tobacco Use Types Packs/Day Years Used Date Smoking Tobacco: Former Cigarettes 1 25 Alcohol Use Standard Drinks/Week Comments Yes 0 (1 standard drink = 0.6 oz pur e alcohol) Sex Assigned at Date Recorded Not on file Job Start Date Occupation Industry Not on file Not on file Not on file documented as of this encounter Miscellaneous Notes * Telephone Encounter - Terra Lombardi M.A. - 04/01/2018 2:02 PM EST Spoke to patient he said yesterday he had chills his O2 sat was 90% so he went to the ER at [facility].they did an xray and everything was ok.his sat there was 100% he wanted to know why he feels SOB. He has pulm rehab tomorrow I told him if they have concerns about his breathing they will notify us. * Telephone Encounter - Xena Cerda - 04/01/2018 1:00 PM EST Patient its calling to Nicole he was in the hospital [facility] only ER due to oxygen level. On 03/31 yesterday Can't give him a call he has some questions documented in this encounter Plan of Treatment Not on file documented as of this encounter Visit Diagnoses Not on filedocumented in this encounter Care Teams Pet Care Attendant Relationship Specialty Start Date End Date Aston Daniel NP PCP - General Family Practice 09/26/17 12/27/19 Riccardo Robledo MD [address] [place] [address] PCP - General Internal Medicine 12/28/19 Olga Ochoa MD [address] [place] [address] Specialist Lung Cancer Credit Collections Analyst 03/07/21 Mina Dominguez PA-C 299 [facility] 410 [place] [address] Specialist Thoracic Surgery 04/29/22 Addison Winslow PA-C 175 [facility] [address] [place] [address] Specialist Neurosurgery 05/02/23 June Denton PA-C 175 [facility] [address] [place] [address] Specialist Neurosurgery 05/02/23 Nichole Otto MD 175 [facility] 300 [place] [address] Surgeon Neurosurgery 05/02/23 documented as of this encounter
--- OUTSIDE RECORDS SUMMARY | 2024-05-26 07:56 | XMS_ITS | Encounter Summary ---
Author Organization [facility] Address [address] [place] [address] Care Team Providers Care Mercury Cell Cleaner Name Role Phone Riccardo Robledo MD Primary Care Provider [phone] Olga Ochoa MD Unavailable Mina Dominguez PA-C Unavailable Addison Winslow PA-C Unavailable [phone] June Denton PA-C Unavailable Nichole Otto MD Unavailable [phone] Encounter Details Date Type Department Care Team Description 04/11/2023 Pt. Non Urgent Medic al Question Adult Medicine - [address] [address] Salina Salas PA-C [address] [place] [address] Social History Tobacco Use Types Packs/Day Years [...] Telephone Encounter - Mary Austin L.P.N. - 04/11/2023 7:11 AM EST From: Jv Monroy To: Virgil Salas Sent: 04/11/2023 6:59 AM EST Subject: MRI Did you get my results of my neck MRI could let me know my results documented in this encounter Plan of Treatment Not on file documented as of this encounter Visit Diagnoses Not on filedocumented in this encounter Care Teams Mercury Cell Cleaner Relationship Specialty Start Date End Date Riccardo Robledo MD 230 [place] [address] PCP - General Internal Medicine 12/28/19 Olga Ochoa MD [address] [place] [address] Specialist Lung Cancer Business Computers Teacher 03/07/21 Mina Dominguez PA-C 299 [facility] 410 [place] [address] Specialist Thoracic Surgery 04/29/22 Addison Winslow PA-C 175 [facility] [address] [place] [address] Specialist Neurosurgery 05/02/23 June Denton PA-C 175 [facility] [address] [place] [address] Specialist Neurosurgery 05/02/23 Nichole Otto MD [address] [facility] [address] [place] [address] Surgeon Neurosurgery 05/02/23 documented as of this encounter
--- OUTSIDE RECORDS SUMMARY | 2024-05-26 07:56 | XMS_ITS | Encounter Summary ---
Author Organization [facility] Address [address] [place] [address] Care Team Providers Care Brake Rider Name Role Phone Aston Daniel NP Primary Care Provider Unavail able Riccardo Robledo MD Primary Care Provider Olga Ochoa MD Unavailable Mina Dominguez PA-C Unavailable [phone] Addison Winslow-C Unavailable [phone] June Denton-Will Unavailable Nichole Otto MD Unavailable [phone] Reason for Visit * Reason Onset Date Comments immunizations 08/18/2018 Recdived from [facility] [employer] Documentation for an MMR Vaccination. Encounter Details Date Type Department Care Team Description 08/18/2018 Telephone Pulmonology - [facility] 175 [facility] [address] [place] [address] Johnathan Cerda MD immunizations (Recdived from [employer] Documentation for an MMR Vaccination.) Social History Tobacco Use Types Packs/Day Years [...] on filedocumented in this encounter Care Teams Brake Rider Relationship Specialty Start Date End Date Aston Daniel NP PCP - General Family Practice 09/26/17 12/27/19 Riccardo Robledo MD 230 [place] [address] PCP - General Internal Medicine 12/28/19 Olga Ochoa MD 230 [place] [address] Specialist Lung Cancer Home Supervisor 03/07/21 Mina Dominguez PA-C [address] [phone] Specialist Thoracic Surgery 04/29/22 Addison Winslow PA-C 175 [facility] [address] [place] [address] Specialist Neurosurgery 05/02/23 June Denton PA-C 175 [facility] 300 [place] [address] Specialist Neurosurgery 05/02/23 Nichole Otto MD 175 [facility] 300 [place] [address] Surgeon Neurosurgery 05/02/23 documented as of this encounter
--- OUTSIDE RECORDS SUMMARY | 2024-05-26 07:56 | XMS_ITS | Encounter Summary ---
Author Organization [facility] Address [address] [place] [address] Care Team Providers Care Medical Record Coder Name Role Phone Riccardo Robledo MD Primary Care Provider [phone] Olga Ochoa MD Unavailable Mina Dominguez PA-C Unavailable Addison Winslow-C Unavailable June Denton-Will Unavailable Nichole Otto MD Unavailable [phone] Encounter Details Date Type Department Care Team Description 04/02/2022 Telephone Adult Medicine [facility] [address] [place], [place] [phone] Riccardo Robledo MD [address] [place], [place] [phone] Social History Tobacco Use Types Packs/Day Years [...] on filedocumented in this encounter Care Teams Medical Record Coder Relationship Specialty Start Date End Date Riccardo Robledo MD [address] [place] [address] PCP - General Internal Medicine 12/28/19 Olga Ochoa MD [address] [place] [address] Specialist Lung Cancer Information Broker 03/07/21 Mina Dominguez PA-C 299 [facility] [address] [place] [address] Specialist Thoracic Surgery 04/29/22 Addison Winslow PA-C [address] [address] Specialist Neurosurgery 05/02/23 June Denton PA-C 175 [facility] [address] [place] [address] Specialist Neurosurgery 05/02/23 Nichole Otto MD [address] [address] Surgeon Neurosurgery 05/02/23 documented as of this encounter
--- OUTSIDE RECORDS SUMMARY | 2024-05-26 07:56 | XMS_ITS | Encounter Summary ---
Author Organization [facility] Address [address] [place] [address] Care Team Providers Care Animal Husbandry Worker Name Role Phone Riccardo Robledo MD Primary Care Provider [phone] Olga Ochoa MD Unavailable Mina Dominguez-C Unavailable Addison Winslow PACecileC Unavailable June Denton PA-C Unavailable Nichole Otto MD Unavailable [phone] Encounter Details Date Type Department Care Team Description 06/16/2023 SCAN [facility] 175 [facility] [address] [place] [address] Akin Delacruz MD 175 [facility] [id number] Social History Tobacco Use Types Packs/Day Years [...] on filedocumented in this encounter Care Teams Animal Husbandry Worker Relationship Specialty Start Date End Date Riccardo Robledo MD [address] [place] [address] PCP - General Internal Medicine 12/28/19 Olga Ochoa MD [address] [place] [address] Specialist Lung Cancer Research Advisor 03/07/21 Mina Dominguez PA-C 299 [facility] [address] [place] [phone] Specialist Thoracic Surgery 04/29/22 Addison Winslow PA-C 175 [facility] [address] [place] [address] Specialist Neurosurgery 05/02/23 June Denton PA-C 175 [facility] [address] [place] [address] Specialist Neurosurgery 05/02/23 Nichole Otto MD 175 [facility] [address] [place] [address] Surgeon Neurosurgery 05/02/23 documented as of this encounter
--- OUTSIDE RECORDS SUMMARY | 2024-05-26 07:56 | XMS_ITS | Encounter Summary ---
Author Organization [facility] Address [address] [place] [address] Care Team Providers Care Sanitation Technician Name Role Phone Riccardo Robledo MD Primary Care Provider Olga Ochoa MD Unavailable Mina Dominguez PA-C Unavailable [phone] Addison Winslow PA-C Unavailable [phone] June Denton PA-C Unavailable [phone] Nichole Otto MD Unavailable [phone] Encounter Details Date Type Department Care Team Description 04/24/2021 Tug Boat Engineer Report Medical Records [address] [place] [address] Wayne Mendieta DO Social History Tobacco Use Types Packs/Day Years [...] on filedocumented in this encounter Care Teams Sanitation Technician Relationship Specialty Start Date End Date Riccardo Robledo MD [address] [place] [address] PCP - General Internal Medicine 12/28/19 Olga Ochoa MD [address] [place] [address] Specialist Lung Cancer Artistic Director 03/07/21 Mina Dominguez PA-C 299 [facility] [address] [place] [address] Specialist Thoracic Surgery 04/29/22 Addison Winslow PA-C 175 [facility] [address] [place] [address] Specialist Neurosurgery 05/02/23 June Denton PA-C 175 [facility] [address] [place] [address] Specialist Neurosurgery 05/02/23 Nichole Otto MD 175 [facility] [address] [place] [address] Surgeon Neurosurgery 05/02/23 documented as of this encounter
--- OUTSIDE RECORDS SUMMARY | 2024-05-26 07:56 | XMS_ITS | Encounter Summary ---
Author Organization [facility] Address [address] [place] [address] Care Team Providers Care Extractor Plant Operator Name Role Phone Community, Pcp Primary Care Provider Unavailabl Aston Fam NP Primary Care Provider Unavail able Riccardo Robledo MD Primary Care Provider [phone] Olga Ochoa MD Unavailable Mina Dominguez-C Unavailable [phone] Addison Winslow PA-C Unavailable June Denton PA-C Unavailable [phone] Nichole Otto MD Unavailable [phone] Encounter Details Date Type Department Care Team Description 03/20/2017 Hospital Medical Records [address] [place] [address] Aston Ponce MD Social History Tobacco Use Types Packs/Day [...] on filedocumented in this encounter Care Teams Extractor Plant Operator Relationship Specialty Start Date End Date Community, Pcp PCP - General 02/20/10 09/25/17 Aston Daniel NP PCP - General Family Practice 09/26/17 12/27/19 Riccardo Robledo MD [address] [place] [address] PCP - General Internal Medicine 12/28/19 Olga Ochoa MD [address] [place] [address] Specialist Lung Cancer Gas Manager 03/07/21 Mina Dominguez PA-C 299 [facility] [address] [place] [address] Specialist Thoracic Surgery 04/29/22 Addison Winslow PA-C 175 [facility] [address] [place] [address] Specialist Neurosurgery 05/02/23 June Denton PA-C 175 [facility] [address] [place] [address] Specialist Neurosurgery 05/02/23 Nichole Otto MD 175 [facility] [address] [place] [address] Surgeon Neurosurgery 05/02/23 documented as of this encounter
--- OUTSIDE RECORDS SUMMARY | 2024-05-26 07:56 | XMS_ITS | Encounter Summary ---
Author Organization [facility] Address [address] [place] [address] Care Team Providers Care Head Of Academic Technology Name Role Phone Riccardo Robledo MD Primary Care Provider Olga Ochoa MD Unavailable Mina Dominguez PA-C Unavailable [phone] Addison Winslow PA-C Unavailable [phone] June Denton PA-C Unavailable [phone] Nichole Otto MD Unavailable [phone] Encounter Details Date Type Department Care Team Description 06/13/2023 Orders Only Medical Records [address] [place] [address] [facility] Social History Tobacco Use Types Packs/Day Years [...] Name Priority Date/Time Associated Diagnosis Comments OUTSIDE PLAIN FILM Routine 06/13/2023 documented in this encounter Results * OUTSIDE PLAIN FILM (06/13/2023) [facility] RADIOLOGY documented in this encounter Visit Diagnoses Not on filedocumented in this encounter Care Teams Head Of Academic Technology Relationship Specialty Start Date End Date Riccardo Robledo MD [address] [place] [address] PCP - General Internal Medicine 12/28/19 Olga Ochoa MD [address] [place] [address] Specialist Lung Cancer Review Nurse 03/07/21 Mina Dominguez PA-C 299 [facility] [address] [place] [address] Specialist Thoracic Surgery 04/29/22 Addison Winslow PA-C 175 [facility] [address] [place] [address] Specialist Neurosurgery 05/02/23 June Denton PA-C 175 [facility] [address] [place] [address] Specialist Neurosurgery 05/02/23 Nichole Otto MD 175 [facility] [address] [place] [address] Surgeon Neurosurgery 05/02/23 documented as of this encounter
--- OUTSIDE RECORDS SUMMARY | 2024-05-26 07:56 | XMS_ITS | Encounter Summary ---
Author Organization [facility] Address [address] [place] [address] Care Team Providers Care Isolation Washer Name Role Phone Riccardo Robledo MD Primary Care Provider [phone] Olga Ochoa MD Unavailable Mina Dominguez PA-C Unavailable Addison Winslow PA-C Unavailable June Denton PA-C Unavailable Nichole Otto MD Unavailable [phone] Encounter Details Date Type Department Care Team Description 05/08/2023 [facility] Medical Records [address] [place] [address] Wilmar Beal MD Social History Tobacco Use Types Packs/Day [...] on filedocumented in this encounter Care Teams Isolation Washer Relationship Specialty Start Date End Date Riccardo Robledo MD [address] [place] [address] PCP - General Internal Medicine 12/28/19 Olga Ochoa MD [address] [place] [address] Specialist Lung Cancer Store Clerk Cashier 03/07/21 Mina Dominguez PA-C 299 [facility] [address] [place] [address] Specialist Thoracic Surgery 04/29/22 Addison Winslow PA-C 175 [facility] [address] [place] [address] Specialist Neurosurgery 05/02/23 June Denton PA-C 175 [facility] 300 [place] [address] Specialist Neurosurgery 05/02/23 Nichole Otto MD 175 [facility] 300 [place] [address] Surgeon Neurosurgery 05/02/23 documented as of this encounter
--- OUTSIDE RECORDS SUMMARY | 2024-05-26 07:56 | XMS_ITS | Encounter Summary ---
Author Organization [facility] Address [address] [place] [address] Care Team Providers Care Network Intern Name Role Phone Riccardo Robledo MD Primary Care Provider Olga Ochoa MD Unavailable Mina Dominguez PA-C Unavailable [phone] Addison Winslow PA-C Unavailable June Denton-Will Unavailable Nichole Otto MD Unavailable [phone] Reason for Visit * Reason Onset Date Comments Prior Authorization 05/16/2023 Encounter Details Date Type Department Care Team Description 05/16/2023 Telephone Adult Medicine - [place] [address] [place], [place] [id number] Riccardo Robledo MD [address] [place] [address] Prior Authorization Social History Tobacco Use Types [...] encounter Miscellaneous Notes * Telephone Encounter - Pallavi Finley M.A. - 05/23/2023 10:08 AM EST Appeal for the omega acid ethyl esters was approved Approved from 05/17/23 until further notice Prior authorization case approval number # [id number] Approval faxed to [facility] at [phone] * Telephone Encounter - Pallavi Finley M.A. - 05/20/2023 10:42 AM EST Appeal to [facility] done today and faxed to [phone] * Telephone Encounter - Riccardo Robledo MD - 05/19/2023 5:30 PM EST Letter of medical necessity is done * Telephone Encounter - Pallavi Finley M.A. - 05/19/2023 3:33 PM EST Pt wants an appeal on this medication. Please do a medical necessity letter. Thank you Please reply back to [id number] Prior Auth Pool Pallavi Orellana [facility] Prior Authorization Ext [id number] * Telephone Encounter - Babita Jain - 05/19/2023 2:42 PM EST Fenofibrate - cannot take because of fatty liver and Pancreatitis. * Telephone Encounter - Carole Maria - 05/19/2023 2:35 PM EST Pt wants a new prior auth done on this -pt called his insurance and they suggested fenofibrate which pt cannot take * Telephone Encounter - Carole Maria - 05/19/2023 2:29 PM EST Pt cannot get the OTC Pocahontas 3 - the one he used to take has an ingrediant in it which is stronger -pt states he has been taking this med for years and doesn't understand why - pt states he takes for his cholesterol and must be noted on the prior auth * Telephone Encounter - Logan Romero PA-C - 05/19/2023 12:39 PM EST Please advise patient this was not covered. He can probably just get the omega-3 [id number] because I am not about to put him on fenofibrate instead. * Telephone Encounter - Pallavi Finley M.A. - 05/19/2023 10:36 AM EST This prior authorization was denied. Must have tried at least 2 covered drugs that can treat your condition. Fenofibrate Micronized Oral Capsule 134 Mg, Fenofibrate Micronized Oral Capsule 200 Mg, Fenofibrate Micronized Oral Capsule 67 Mg, Fenofibrate Nanocrystallized Oral Tablet 145 Mg, Fenofibrate Nanocrystallized Oral Tablet 48 Mg, Fenofibrate Oral Tablet 160 Mg, Fenofibrate Oral Tablet 54 Mg, Niacin Oral Tablet Extended Release 24 Hr 1,000 Mg, Niacin Oral Tablet Extended Release 24 Hr 500 Mg, Niacin Oral Tablet Extended Release 24 Hr 750 Mg Vascepa Oral Capsule 0.5 Gram Vascepa Oral Capsule 1 Gram. Thank you Please reply back to [id number] Prior Auth Pool Pallavi Orellana [facility] Prior Authorization Ext [id number] * Telephone Encounter - Pallavi Finley M.A. - 05/16/2023 11:22 AM EST Prior authorization for the lovaza was completed today on cover my meds Dx code E78.5 Hyperlipidemia * Telephone Encounter - Carole Maria - 05/16/2023 8:49 AM EST Prior Authorization for Medication-do not complete and send this encounter unless you have the fax from the pharmacy. Is this a Cover My Meds request: [place] of Medication Pocahontas three ethyl esters Dose of Medication 1 gm cap What is the RX # from the faxed refill? [id number] How does patient take this med? Take 1 capsule daily What Pharmacy did the fax come from: [address] Pharmacy fax #: [employer] Information from fax: What Prescription Plan does the patient have? [facility] BIN/PCN if applicable: Cardholder ID: [id number] Person Code: Relationship Code: Help desk phone: [phone] documented in this encounter Plan of Treatment Not on file documented as of this encounter Visit Diagnoses Not on filedocumented in this encounter Care Teams Network Intern Relationship Specialty Start Date End Date Riccardo Robledo MD [address] [place] [address] PCP - General Internal Medicine 12/28/19 Olga Ochoa MD [address] [place] [address] Specialist Lung Cancer Smoke Control Supervisor 03/07/21 Mina Dominguez PA-C 299 [facility] [address] [place] [address] Specialist Thoracic Surgery 04/29/22 Addison Winslow PA-C 175 [facility] [address] [place] [address] Specialist Neurosurgery 05/02/23 June Denton PA-C 175 [facility] [address] [place] [address] Specialist Neurosurgery 05/02/23 Nichole Otto MD [address] [place] [address] Surgeon Neurosurgery 05/02/23 documented as of this encounter
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
--- OUTSIDE RECORDS SUMMARY | 2024-05-26 07:56 | XMS_ITS | Encounter Summary ---
Author Organization [facility] Address [address] [place] [address] Care Team Providers Care Greens Picker Name Role Phone Riccardo Robledo MD Primary Care Provider [phone] Olga Ochoa MD Unavailable Mina Dominguez-C Unavailable Addison Winslow-C Unavailable June Denton PA-C Unavailable Nichole Otto MD Unavailable [phone] Encounter Details Date Type Department Care Team Description 03/26/2022 Pt. Non Urgent Medic al Question Adult Medicine - [place] [address] [place] [address] Riccardo Robledo MD [address] [place] [address] Social History Tobacco Use Types Packs/Day Years [...] Telephone Encounter - Mary Austin L.P.N. - 03/26/2022 10:44 AM EST From: Jv Monroy To: Will Robledo Sent: 03/26/2022 9:43 AM EST Subject: Albuterol sulfate I need my Albuterol sulfate inhalation solution 0 .083 2.5mg/3mg I ran out I need this for my treatment for my machine documented in this encounter Plan of Treatment Not on file documented as of this encounter Visit Diagnoses Not on filedocumented in this encounter Care Teams Greens Picker Relationship Specialty Start Date End Date Riccardo Robledo MD [address] [place] [address] PCP - General Internal Medicine 12/28/19 Olga Ochoa MD [address] [place] [address] Specialist Lung Cancer Clinical Care Coordinator 03/07/21 Mina Dominguez PA-C [address] [address] Specialist Thoracic Surgery 04/29/22 Addison Winslow PA-C 175 [facility] [address] [place] [address] Specialist Neurosurgery 05/02/23 June Denton PA-C [address] [address] Specialist Neurosurgery 05/02/23 Nichole Otto MD [address] [address] Surgeon Neurosurgery 05/02/23 documented as of this encounter
--- OUTSIDE RECORDS SUMMARY | 2024-05-26 07:56 | XMS_ITS | Encounter Summary ---
Author Organization [facility] Address [address] [place] [address] Care Team Providers Care Cheese Production Supervisor Name Role Phone Riccardo Robledo MD Primary Care Provider [phone] Olga Ochoa MD Unavailable Mina Dominguez PA-C Unavailable Addison Winslow PA-C Unavailable June Denton PA-C Unavailable Nichole Otto MD Unavailable [phone] Encounter Details Date Type Department Care Team Description 05/08/2023 Refill Adult Medicine - [address] [address] Salina Salas PA-C [address] [place] [id number] Social History Tobacco Use Types Packs/Day Years [...] on filedocumented in this encounter Care Teams Cheese Production Supervisor Relationship Specialty Start Date End Date Riccardo Robledo MD [address] [place] [address] PCP - General Internal Medicine 12/28/19 Olga Ochoa MD [address] [place] [address] Specialist Lung Cancer Gear Shaper 03/07/21 Mina Dominguez PA-C 299 [facility] [address] [place] [phone] Specialist Thoracic Surgery 04/29/22 Addison Winslow PA-C 175 [facility] [address] [place] [address] Specialist Neurosurgery 05/02/23 June Denton PA-C 175 [facility] [address] [place] [address] Specialist Neurosurgery 05/02/23 Nichole Otto MD 175 [facility] [address] [place] [address] Surgeon Neurosurgery 05/02/23 documented as of this encounter
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
--- OUTSIDE RECORDS SUMMARY | 2024-05-26 07:56 | XMS_ITS | Encounter Summary ---
Author Organization [facility] Address [address] [place] [address] Care Team Providers Care Knotter Name Role Phone Riccardo Robledo MD Primary Care Provider [phone] Olga Ochoa MD Unavailable Mina Dominguez PA-C Unavailable [phone] Addison Winslow-C Unavailable June Denton-Will Unavailable Nichole Otto MD Unavailable [phone] Encounter Details Date Type Department Care Team Description 06/16/2023 Telephone Adult Medicine - [place] [address] [place], [place] [phone] Riccardo Robledo MD [address] [place], [place] [phone] Social History Tobacco Use Types Packs/Day Years [...] encounter Miscellaneous Notes * Telephone Encounter - Ainsley Hayes M.A. - 06/17/2023 8:44 AM EDT Notes have been obtained for provider to review before patients appointment today. * Telephone Encounter - Ainsley Hayes M.A. - 06/16/2023 4:34 PM EDT Spoke to Claudette at [facility] and she stated she will have patients informatio from when he was seen at ER sent over to [phone]. documented in this encounter Plan of Treatment Not on file documented as of this encounter Visit Diagnoses Not on filedocumented in this encounter Care Teams Knotter Relationship Specialty Start Date End Date Riccardo Robledo MD [address] [place] [address] PCP - General Internal Medicine 12/28/19 Olga Ochoa MD [address] [place] [address] Specialist Lung Cancer Manager Of Production 03/07/21 Mina Dominguez PA-C 299 [facility] [address] [place] [phone] Specialist Thoracic Surgery 04/29/22 Addison Winslow PA-C 175 [facility] [address] [place] [address] Specialist Neurosurgery 05/02/23 June Denton PA-C 175 [facility] [address] [place] [address] Specialist Neurosurgery 05/02/23 Nichole Otto MD [address] [address] Surgeon Neurosurgery 05/02/23 documented as of this encounter
--- OUTSIDE RECORDS SUMMARY | 2024-05-26 07:56 | XMS_ITS | Encounter Summary ---
Author Organization [facility] Address [address] [place] [address] Care Team Providers Care Cushion Former Name Role Phone Riccardo Robledo MD Primary Care Provider [phone] Olga Ochoa MD Unavailable Mina Dominguez PA-C Unavailable [phone] Addison Winslow PA-C Unavailable June Denton-Will Unavailable Nichole Otto MD Unavailable [phone] Encounter Details Date Type Department Care Team Description 06/12/2023 Hospital Medical Records [address] [place] [address] Akin Delacruz MD [address] [place] [id number] Social History Tobacco Use Types Packs/Day Years [...] on filedocumented in this encounter Care Teams Cushion Former Relationship Specialty Start Date End Date Riccardo Robledo MD [address] [place] [address] PCP - General Internal Medicine 12/28/19 Olga Ochoa MD [address] [place] [address] Specialist Lung Cancer Indoor Sports Centre Manager 03/07/21 Mina Dominguez PA-C 299 [facility] [address] [place] [address] Specialist Thoracic Surgery 04/29/22 Addison Winslow PA-C 175 [facility] [address] [place] [address] Specialist Neurosurgery 05/02/23 June Denton PA-C 175 [facility] [address] [place] [address] Specialist Neurosurgery 05/02/23 Nichole Otto MD 175 [facility] [address] [place] [address] Surgeon Neurosurgery 05/02/23 documented as of this encounter
--- OUTSIDE RECORDS SUMMARY | 2024-05-26 07:56 | XMS_ITS | Encounter Summary ---
Author Organization [facility] Address [address] [place] [address] Care Team Providers Care Urgent Care Physician Assistant Name Role Phone Riccardo Robledo MD Primary Care Provider Olga Ochoa MD Unavailable Mina Dominguez-C Unavailable [phone] Addison WinslowC Unavailable June Denton PA-C Unavailable [phone] Nichole Otto MD Unavailable [phone] Encounter Details Date Type Department Care Team Description 03/15/2020 [facility] Medical Records [address] [place] [id number] Abstract, Provider Social History Tobacco Use Types [...] have Coronavirus / COVID-19? No / Unsure 03/14/2020 2:25 PM EST documented as of this encounter Plan of Treatment Not on file documented as of this encounter Visit Diagnoses Not on filedocumented in this encounter Care Teams Urgent Care Physician Assistant Relationship Specialty Start Date End Date HayRiccardo Munoz MD [address] [place] [address] PCP - General Internal Medicine 12/28/19 Olga Ochoa MD [address] [place] [address] Specialist Lung Cancer Global Creative Chairman 03/07/21 Mina Dominguez PA-C [address] [facility] [address] [place] [phone] Specialist Thoracic Surgery 04/29/22 Addison Winslow PA-C 175 [facility] [address] [place] [address] Specialist Neurosurgery 05/02/23 June Denton PA-C 175 [facility] [address] [place] [address] Specialist Neurosurgery 05/02/23 Nichole Otto MD 175 [facility] 300 [place] [address] Surgeon Neurosurgery 05/02/23 documented as of this encounter
--- OUTSIDE RECORDS SUMMARY | 2024-05-26 07:56 | XMS_ITS | Encounter Summary ---
Author Organization [facility] Address [address] [place] [address] Care Team Providers Care Information Systems Manager Name Role Phone Riccardo Robledo MD Primary Care Provider Olga Ochoa MD Unavailable Mina Dominguez PA-C Unavailable Addison Winslow PA-C Unavailable [phone] June Denton-Will Unavailable Nichole Otto MD Unavailable [phone] Reason for Visit * Reason Onset Date Comments medication problems 03/15/2020 Encounter Details Date Type Department Care Team Description 03/15/2020 Telephone Adult Medicine - [place] [address] [place], [place] [phone] Riccardo Robledo MD [address] [place], [place] [phone] medication problems Social History Tobacco Use Types Packs/Day Years [...] PM EST documented as of this encounter Miscellaneous Notes * Telephone Encounter - Mary Austin L.P.N. - 03/16/2020 12:36 PM EST Patient notified * Telephone Encounter - Mary Austin L.P.N. - 03/16/2020 11:30 AM EST Left message on unverified voice mail for patient to return our call. * Telephone Encounter - Riccardo Robledo MD - 03/16/2020 9:50 AM EST I I think it is a default on the script trying to prevent him from getting a yeast infection since he is being treated with antibiotics should take the 1 pill * Telephone Encounter - Mary Austin L.P.N. - 03/16/2020 9:02 AM EST Images from the original note were not included. Patient calling asking why he was prescribed Fluconazole, states the directions state for vaginal yeast inf Forwarded for recommendation. 1. Chest pain, unspecified type 2. Subacute maxillary sinusitis 3. Esophageal stricture 4. Posttraumatic stress disorder ? PLAN: Chest pain It appears to be related to GERD . he says that he is getting a esophageal dilation at the end of the month as he is still having problems with swallowing . I feel this is what is causing his left-sided chest pain An EKG was done which is normal he is given reassurance Patient is treated for subacute maxillary sinusitis We discussed about his esophageal stricture Patient was very anxious today at the visit because of having some issues with an clerical receptionist I will call this clerical receptionist To find out what exactly is needed He is reassured that I will follow up with the clerical receptionist from [facility] Emotional support given This visit took 25 minutes including EKG done in progress note Return to the office in 2 months or as needed ?? Other Notes Addendum Note from Aicha Del Cid M.A. Instructions Return in about 2 months (around 05/15/2020). After Visit Summary (Printed 03/14/2020) Additional Documentation Vitals: ?? BP 142/76 Abnormal Pulse 90 Temp 98.1 ??F (36.7 ??C) (Oral) Ht 5' 8 (1.727 m) Wt 191 lb (86.6 kg) SpO2 96% BMI 29.04 kg/m?? BSA 2.04 m?? More Vitals Encounter Info: ?? Billing Info, History, Allergies, Detailed Report Orders Placed ELECTROCARDIOGRAM, COMPLETE (ECG) Medication Changes Amoxicillin-Pot Clavulanate 875-125 MG 1 tablet Oral 2 TIMES DAILY Azelastine HCl 274 mcg Each Nare 2 TIMES DAILY, Use in each nostril as directed Fluconazole 150 mg Oral ONCE Medication List Visit Diagnoses Chest pain, unspecified type Subacute maxillary sinusitis Esophageal stricture Posttraumatic stress disorder Problem List * Telephone Encounter - Karen Guido - 03/15/2020 4:52 PM EST Who is calling? The patient Name of the medication Fluconazole What is the specific problem or interaction? Pt states that he was prescribed this. He states that the directions state that this is for a vaginal yeast infection. He is unsure what to do with this. If the patient is having a problem with taking the med - how long has the problem been going on? N/A documented in this encounter Plan of Treatment Not on file documented as of this encounter Visit Diagnoses Not on filedocumented in this encounter Care Teams Information Systems Manager Relationship Specialty Start Date End Date Riccardo Robledo MD [facility] [address] PCP - General Internal Medicine 12/28/19 Olga Ochoa MD [address] [place] [address] Specialist Lung Cancer Regional Intermodal Truck Driver 03/07/21 Mina Dominguez PA-C [address] [phone] Specialist Thoracic Surgery 04/29/22 Addison Winslow PA-C 175 [facility] [address] [place] [address] Specialist Neurosurgery 05/02/23 June Denton PA-C [address] [address] Specialist Neurosurgery 05/02/23 Nichole Otto MD 175 [facility] [address] [place] [address] Surgeon Neurosurgery 05/02/23 documented as of this encounter
--- OUTSIDE RECORDS SUMMARY | 2024-05-26 07:56 | XMS_ITS | Encounter Summary ---
Author Organization [facility] Address [address] [place] [address] Care Team Providers Care Patient Transportation Driver Name Role Phone Riccardo Robledo MD Primary Care Provider [phone] Olga Ochoa MD Unavailable Mina Dominguez-C Unavailable Addison Winslow-C Unavailable June Denton PA-C Unavailable Nichole Otto MD Unavailable [phone] Encounter Details Date Type Department Care Team Description 04/01/2022 Pt. Non Urgent Medic al Question Adult Medicine - [place] [address] [place] [address] Riccardo Robledo MD [address] [place] [address] Social History Tobacco Use Types Packs/Day Years [...] Telephone Encounter - Mary Austin L.P.N. - 04/01/2022 1:57 PM EST From: Jv Monroy To: Will Robledo Sent: 04/01/2022 1:40 PM EST Subject: Results from [facility] Could you tell me my results from Friday ER visit my blood work and my EKG I saw the x-ray results you sent me but I don't have the results for my blood work or EKG let me know how that came out this was done at [facility] on 03/30/22 in the morning documented in this encounter Plan of Treatment Not on file documented as of this encounter Visit Diagnoses Not on filedocumented in this encounter Care Teams Patient Transportation Driver Relationship Specialty Start Date End Date Riccardo Robledo MD [address] [place] [address] PCP - General Internal Medicine 12/28/19 Olga Ochoa MD [address] [place] [address] Specialist Lung Cancer Industrial Painter 03/07/21 Mina Dominguez PA-C [address] [phone] Specialist Thoracic Surgery 04/29/22 Addison Winslow PA-C 175 [facility] [address] [place] [address] Specialist Neurosurgery 05/02/23 June Denton PA-C 175 [facility] [address] [place] [address] Specialist Neurosurgery 05/02/23 Nichole Otto MD 175 [facility] [address] [place] [address] Surgeon Neurosurgery 05/02/23 documented as of this encounter
--- OUTSIDE RECORDS SUMMARY | 2024-05-26 07:56 | XMS_ITS | Encounter Summary ---
Author Organization [facility] Address [address] [place] [address] Care Team Providers Care Cut In Station Operator Name Role Phone Community, Pcp Primary Care Provider UnavailAston Araujo NP Primary Care Provider Unavail able Riccardo Robledo MD Primary Care Provider [phone] Olga Ochoa MD Unavailable Mina Dominguez PA-C Unavailable Addison WinslowC Unavailable June Denton PA-C Unavailable Nichole Otto MD Unavailable [phone] Encounter Details Date Type Department Care Team Description 09/14/2017 [facility] [address] [place] [address] Abstract, Provider Social History Tobacco Use Types [...] on filedocumented in this encounter Care Teams Cut In Station Operator Relationship Specialty Start Date End Date Community, Pcp PCP - General 02/20/10 09/25/17 Aston Daniel NP PCP - General Family Practice 09/26/17 12/27/19 Riccardo Robledo, [address] [place] [address] [place] [address] PCP - General Internal Medicine 12/28/19 Olga Ochoa MD [address] [place] [address] Specialist Lung Cancer Parliamentary Counsel 03/07/21 Mina Dominguez PA-C [address] [phone] Specialist Thoracic Surgery 04/29/22 Addison Winslow PA-C 175 [facility] [address] [place] [address] Specialist Neurosurgery 05/02/23 June Denton PA-C [address] [address] Specialist Neurosurgery 05/02/23 Nichole Otto MD 175 [facility] [address] [place] [address] Surgeon Neurosurgery 05/02/23 documented as of this encounter
--- OUTSIDE RECORDS SUMMARY | 2024-05-26 07:56 | XMS_ITS | Encounter Summary ---
Author Organization [facility] Address [address] [place] [address] Care Team Providers Care Vice President Of Academic Affairs Name Role Phone Riccardo Robledo MD Primary Care Provider [phone] Olga Ochoa MD Unavailable Mina Dominguez PA-C Unavailable Addison Winslow PA-C Unavailable June Denton PA-C Unavailable [phone] Nichole Otto MD Unavailable [phone] Encounter Details Date Type Department Care Team Description 03/10/2023 Sorting Machine Attendant Report Medical Records [address] [place] [address] Wilmar Beal MD Social History Tobacco Use [...] on filedocumented in this encounter Care Teams Vice President Of Academic Affairs Relationship Specialty Start Date End Date Riccardo Robledo MD [address] [place] [address] PCP - General Internal Medicine 12/28/19 Olga Ochoa MD [address] [place] [address] Specialist Lung Cancer Ticket Machine Operator 03/07/21 Mina Dominguez PA-C 299 [facility] [address] [place] [address] Specialist Thoracic Surgery 04/29/22 Addison Winslow PA-C 175 [facility] [address] [place] [address] Specialist Neurosurgery 05/02/23 June Denton PA-C 175 [facility] [address] [place] [address] Specialist Neurosurgery 05/02/23 Nichole Otto MD 175 [facility] [address] [place] [address] Surgeon Neurosurgery 05/02/23 documented as of this encounter
--- OUTSIDE RECORDS SUMMARY | 2024-05-26 07:56 | XMS_ITS | Encounter Summary ---
Author Organization [facility] Address [address] [place] [address] Care Team Providers Care Windows Server Engineer Name Role Phone Mireya Robledo MD Primary Care Prov ider Reason for Visit * Reason Onset Date Comments Echocardiogram 04/23/2024 Referral 04/23/2024 Encounter Details Date Type Department Care Team ([facility] st Contact Info) Description 04/23/2024 Telephone Adult Medicine - [place] [address] [place] [phone] Mireya Robledo MD 230 [place] [address] Echocardiogram; Referral Social History Tobacco Use Types Packs/Day Years Used Date Smoking Tobacco: Former Cigarettes Q uit: 03/24/2014 Smokeless Tobacco: Never Alcohol Use Standard Drinks/Week Comments Not Currently 0 (1 standard drink = 0.6 oz pur e alcohol) Sex and Gender Information Value Date Recorded Sex Assigned at Not on file Legal Sex Male 5:40 AM EST Gender Identity Not on file Sexual Orientation Not on file documented as of this encounter Progress Notes * Savannah Caraballo MA - 04/29/2024 2:23 PM EST Sent message to pt via my chart. * SERENA Atkinson - 04/28/2024 12:28 PM EST I reviewed his previous echocardiogram. There is no clinical indication as to why we need to repeatan echocardiogram unless there has been any significant change or something that I am not aware of.We can discuss it more at our upcoming appointment * Camilo Spann MA - 04/28/2024 11:33 AM EST Patient asking for annual echo order. Please advise. * Vignesh Jones - 04/23/2024 8:43 AM EST Pt calling in looking for a referral for his annual echocardiogram at [facility]. documented in this encounter Plan of Treatment Upcoming Encounters Date Type Department Care Team (Late st Contact Info) Description 05/26/2024 9:30 AM EST Office Visit Orthopedic Surgery [facility] 160 175 [facility] 160 [place] [address] Akin Delacruz MD 175 [facility] 160 [place] [address] 05/28/2024 9:30 AM EST Office Visit Adult Medicine [facility] 230 [place] [address] Logan Romero PA 230 [place] [address] 06/03/2024 9:45 AM EDT Office Visit Bariatric Surgery [facility] 175 [facility] 120 [place] [phone] Sahara Villela MD 175 [facility] 120 [place] [address] 07/15/2024 10:15 AM EDT Office Visit Orthopedic Surgery [facility] 250 175 [facility] 250 [place] [phone] Mina Eckert DPDanisha 175 [facility] 250 [place] [address] 09/17/2024 11:00 AM EDT Office Visit Adult Medicine - [place] [address] [place] [address] Mireya Robledo MD 230 [place] [address] documented as of this encounter Visit Diagnoses Not on filedocumented in this encounter Care Teams Windows Server Engineer Relationship Specialty Start Date End Date Mireya Robledo MD [address] [place] [address] PCP - General Internal Medicine 02/02/24 documented as of this encounter
--- OUTSIDE RECORDS SUMMARY | 2024-05-26 07:56 | XMS_ITS | Encounter Summary ---
Author Organization [facility] Address [address] [place] [address] Care Team Providers Care Head Sugar Reprocess Operator Name Role Phone Aston Daniel NP Primary Care Provider Unavail able Riccardo Robledo MD Primary Care Provider [phone] Olga Ochoa MD Unavailable Mina Dominguez PA-C Unavailable Addison Winslow-C Unavailable [phone] June Denton-Will Unavailable Nichole Otto MD Unavailable [phone] Encounter Details Date Type Department Care Team Description 06/23/2019 Hydraulic Pile Hammer Operator Report Medical Records [address] [place] [address] Richie Alba MD, PHD Social History Tobacco Use Types Packs/Day Years [...] filedocumented in this encounter Care Teams Head Sugar Reprocess Operator Relationship Specialty Start Date End Date Aston Daniel NP PCP - General Family Practice 09/26/17 12/27/19 Riccardo Robledo, [address] [place] [address] PCP - General Internal Medicine 12/28/19 Olga Ochoa MD 230 [place] [address] Specialist Lung Cancer Earth Moving Machine Operator 03/07/21 Mina Dominguez PA-C 299 [facility] 410 [place] [address] Specialist Thoracic Surgery 04/29/22 Addison Winslow PA-C 175 [facility] 300 [place] [address] Specialist Neurosurgery 05/02/23 June Denton PA-C [address] [address] Specialist Neurosurgery 05/02/23 Nichole Otto MD [address] [address] Surgeon Neurosurgery 05/02/23 documented as of this encounter
--- OUTSIDE RECORDS SUMMARY | 2024-05-26 07:56 | XMS_ITS | Encounter Summary ---
Author Organization [facility] Address [address] [place] [address] Care Team Providers Care Audioprosthologist Name Role Phone Aston Daniel NP Primary Care Provider Unavail able Riccardo Robledo MD Primary Care Provider [phone] Olga Ochoa MD Unavailable Mina Dominguez PA-C Unavailable Addison Winslow PA-C Unavailable June Denton-C Unavailable Nichole Otto MD Unavailable [phone] Encounter Details Date Type Department Care Team Description 11/02/2018 Telephone Adult Medicine - [place] [address] [place], [place] [phone] Aston Daniel NP Social History Tobacco Use Types Packs/Day Years [...] on filedocumented in this encounter Care Teams Audioprosthologist Relationship Specialty Start Date End Date Aston Daniel NP PCP - General Family Practice 09/26/17 12/27/19 Riccardo Robledo, 230 [place] [address] PCP - General Internal Medicine 12/28/19 Olga Ochoa MD 230 [place] [address] Specialist Lung Cancer Child Care Coordinator 03/07/21 Mina Dominguez PA-C 299 [facility] 410 [place] [phone] Specialist Thoracic Surgery 04/29/22 Addison Winslow PA-C 175 [facility] 300 [place] [address] Specialist Neurosurgery 05/02/23 June Denton PA-C 175 [facility] 300 [place] [address] Specialist Neurosurgery 05/02/23 Nichole Otto MD 175 [facility] 300 [place] [address] Surgeon Neurosurgery 05/02/23 documented as of this encounter
--- OUTSIDE RECORDS SUMMARY | 2024-05-26 07:56 | XMS_ITS | Encounter Summary ---
Author Organization [facility] Address [address] [place] [address] Care Team Providers Care General Ledger Accountant Name Role Phone Riccardo Robledo MD Primary Care Provider Olga Ochoa MD Unavailable Mina DominguezC Unavailable Addison Winslow PA-C Unavailable June Denton PA-C Unavailable [phone] Nichole Otto MD Unavailable [phone] Encounter Details Date Type Department Care Team Description 06/12/2023 Release of Information Medical Records [address] [place] [address] Abstract, Provider Social History Tobacco Use Types [...] on filedocumented in this encounter Care Teams General Ledger Accountant Relationship Specialty Start Date End Date Riccardo Robledo, 230 [place] [address] PCP - General Internal Medicine 12/28/19 Olga Ochoa MD 230 [place] [address] Specialist Lung Cancer Community Mental Health Worker 03/07/21 Mina Dominguez PA-C 299 [facility] 410 [place] [address] Specialist Thoracic Surgery 04/29/22 Addison Winslow PA-C 175 [facility] [address] [place] [address] Specialist Neurosurgery 05/02/23 June Denton PA-C 175 [facility] [place] [facility] 300 [place] [address] Specialist Neurosurgery 05/02/23 Nichole Otto MD 175 [facility] 300 [place] [address] Surgeon Neurosurgery 05/02/23 documented as of this encounter
--- OUTSIDE RECORDS SUMMARY | 2024-05-26 07:56 | XMS_ITS | Encounter Summary ---
Author Organization [facility] Address [address] [place] [address] Care Team Providers Care Auto Vinyl Top Installer Name Role Phone Riccardo Robledo MD Primary Care Provider [phone] Olga Ochoa MD Unavailable Mina Dominguez PA-C Unavailable Addison Winslow PA-C Unavailable June Denton PA-C Unavailable Nichole Otto MD Unavailable [phone] Encounter Details Date Type Department Care Team Description 05/21/2021 Orders Only Medical Records [address] [place] [address] Olga Ochoa MD [address] [place] [id number] Social History Tobacco Use Types Packs/Day Years [...] Name Priority Date/Time Associated Diagnosis Comments OUTSIDE LAB Routine 05/21/2021 documented in this encounter Results * OUTSIDE LAB (05/21/2021) Olga Ochoa MD LAB documented in this encounter Visit Diagnoses Not on filedocumented in this encounter Care Teams Auto Vinyl Top Installer Relationship Specialty Start Date End Date Riccardo Robledo MD 230 [place] [address] PCP - General Internal Medicine 12/28/19 Olga Ochoa MD 230 [place] [address] Specialist Lung Cancer Public Relations Account Supervisor 03/07/21 Mina Dominguez PA-C [address] [phone] Specialist Thoracic Surgery 04/29/22 Addison Winslow PA-C [address] [address] Specialist Neurosurgery 05/02/23 June Denton PA-C [address] [address] Specialist Neurosurgery 05/02/23 Nichole Otto MD [address] [address] Surgeon Neurosurgery 05/02/23 documented as of this encounter
--- OUTSIDE RECORDS SUMMARY | 2024-05-26 07:56 | XMS_ITS | Encounter Summary ---
Author Organization [facility] Address [address] [place] [address] Care Team Providers Care Stock Unloader Name Role Phone Riccardo Robledo MD Primary Care Provider Olga Ochoa MD Unavailable Mina Dominguez PA-C Unavailable [phone] Addison Winslow PA-C Unavailable June Denton-C Unavailable [phone] Nichole Otto MD Unavailable [phone] Reason for Visit * Reason Onset Date Comments Heart Problem 04/06/2021 Encounter Details Date Type Department Care Team Description 04/06/2021 Telephone Adult Medicine - [place] [address] [place], [place] [phone] Riccardo Robledo MD 230 [place] [address] Heart Problem Social History Tobacco Use Types Packs/Day Years [...] encounter Miscellaneous Notes * Telephone Encounter - Lian Mcgrath L.P.N. - 04/10/2021 2:30 PM EST Pt was advised on 04-09-21,we will call with echo results when available Results in chart * Telephone Encounter - Lian Mcgrath L.P.N. - 04/06/2021 11:21 AM EST [phone] Unable to complete call,no dial tone Results of cardiac testing that was done y/d is not entered in EMR as of time If pt calls back he should be advised to contact cardiology for results,otherwise we will contact him when results become available * Telephone Encounter - Kenzie Vo - 04/06/2021 10:57 AM EST Symptoms patient is presenting: Patient is having heart palpatations and esophagus problems. He hada test done yesterday at [facility] and would like results sheng For ALL patients calling to schedule any appointment (routine, sick visit, follow up, consult, etc.) in the outpatient setting please ask the following questions: ?? Do you have fever of higher than 101, sore throat with difficulty swallowing or severe shortnessof breath? NO If YES to any of these above symptoms, send a message to triage and do not book. Red dot. If no, an audio or video visit should be booked. ?? Have you had close contact with someone with Coronavirus in the last 14 days? NO ?? Have you traveled abroad? NO ?? Have you traveled recently to another state outside of [place], [place], [place], [place], [place], [place], [place]? NO o If yes, did you quarantine for 14 days or have a negative covid test? NO If yes to any of the above, patient is not to be scheduled in office until after 14 day quarantine or negative covid test. If pain or injury related was it due to an accident at work or from a motor vehicle accident? NO If yes, gather 3rd alliance party insurance information Date of accident/Injury: How long has patient had these symptoms?: Today PCP: Mireya Robledo Payor: [place]ARE-[place] / Plan: [place] / Product Type: MEDICARE [id number] documented in this encounter Plan of Treatment Not on file documented as of this encounter Visit Diagnoses Not on filedocumented in this encounter Care Teams Stock Unloader Relationship Specialty Start Date End Date Riccardo Robledo MD 230 [place] [address] PCP - General Internal Medicine 12/28/19 Olga Ochoa MD 230 [place] [address] Specialist Lung Cancer Differential Repairer 03/07/21 Mina Dominguez PA-C 299 [facility] 410 [place] [address] Specialist Thoracic Surgery 04/29/22 Addison Winslow PA-C 175 [facility] [address] [place] [address] Specialist Neurosurgery 05/02/23 June Denton PA-C 175 [facility] 300 [place] [address] Specialist Neurosurgery 05/02/23 Nichole Otto MD 175 [facility] [address] [place] [address] Surgeon Neurosurgery 05/02/23 documented as of this encounter
--- OUTSIDE RECORDS SUMMARY | 2024-05-26 07:56 | XMS_ITS | Encounter Summary ---
Author Organization [facility] Address [address] [place] [address] Care Team Providers Care Cable Repairer Name Role Phone Aston Daniel NP Primary Care Provider Unavail able Riccardo Robledo MD Primary Care Provider [phone] Olga Ochoa MD Unavailable Mina Dominguez PA-C Unavailable Addison Winslow-C Unavailable June Denton-Will Unavailable Nichole Otto MD Unavailable [phone] Encounter Details Date Type Department Care Team Description 03/03/2019 [facility] Medical Records [address] [place], [place] [phone] [place] [address] Social History Tobacco Use Types Packs/Day Years [...] on filedocumented in this encounter Care Teams Cable Repairer Relationship Specialty Start Date End Date Aston Daniel NP PCP - General Family Practice 09/26/17 12/27/19 Riccardo RobledoMD [address] [place] [address] PCP - General Internal Medicine 12/28/19 Olga Ochoa MD 230 [place] [address] Specialist Lung Cancer Hospitality Aide 03/07/21 Mina Dominguez PA-C 299 [facility] 410 [place] [address] Specialist Thoracic Surgery 04/29/22 Addison Winslow PA-C 175 [facility] 300 [place] [address] Specialist Neurosurgery 05/02/23 June Denton PA-C [address] [address] Specialist Neurosurgery 05/02/23 Nichole Otto MD 175 [facility] 300 [place] [address] Surgeon Neurosurgery 05/02/23 documented as of this encounter
--- OUTSIDE RECORDS SUMMARY | 2024-05-26 07:56 | XMS_ITS | Encounter Summary ---
Author Organization [facility] Address [address] [place] [address] Care Team Providers Care Cargo Tank Mechanic Name Role Phone Riccardo Robledo MD Primary Care Provider Olga Ochoa MD Unavailable Mina Dominguez PA-C Unavailable Addison Winslow PA-C Unavailable June Denton PA-C Unavailable [phone] Nichole Otto MD Unavailable [phone] Reason for Visit * Reason Comments E-prescribe Rx Request Encounter Details Date Type Department Care Team Description 05/04/2021 Refill Adult Medicine - [address] [address] Logan Romero PA-C [address] [place] [address] E-prescribe Rx Request Social History Tobacco Use Types Packs/Day Years [...] encounter Miscellaneous Notes * Telephone Encounter - Carole Maria - 05/09/2021 2:45 PM EST Duplicate - please close documented in this encounter Plan of Treatment Not on file documented as of this encounter Visit Diagnoses Not on filedocumented in this encounter Care Teams Cargo Tank Mechanic Relationship Specialty Start Date End Date Riccardo Robledo MD 230 [place] [address] PCP - General Internal Medicine 12/28/19 Olga Ochoa MD 230 [place] [address] Specialist Lung Cancer Forest Patrolman 03/07/21 Mina Dominguez PA-C 299 [facility] 410 [place] [address] Specialist Thoracic Surgery 04/29/22 Addison Winslow PA-C 175 [facility] 300 [place] [address] Specialist Neurosurgery 05/02/23 June Denton PA-C 175 [facility] 300 [place] [address] Specialist Neurosurgery 05/02/23 Nichole Otto MD 175 [facility] 300 [place] [address] Surgeon Neurosurgery 05/02/23 documented as of this encounter
--- OUTSIDE RECORDS SUMMARY | 2024-05-26 07:56 | XMS_ITS | Encounter Summary ---
Author Organization [facility] Address [address] [place] [address] Care Team Providers Care Trailer Chief Name Role Phone Community, Pcp Primary Care Provider UnavailAston Araujo NP Primary Care Provider Unavail able Riccardo Robledo MD Primary Care Provider [phone] Olga Ochoa MD Unavailable Mina Dominguez PA-C Unavailable [phone] Addison WinslowC Unavailable [phone] June Denton PA-C Unavailable Nichole Otto MD Unavailable [phone] Encounter Details Date Type Department Care Team Description 09/14/2017 [facility] Medical Records [address] [place] [address] Abstract, Provider Social History Tobacco Use Types [...] on filedocumented in this encounter Care Teams Trailer Chief Relationship Specialty Start Date End Date Community, Pcp PCP - General 02/20/10 09/25/17 Aston Daniel NP PCP - General Family Practice 09/26/17 12/27/19 Riccardo Robledo, [address] [place] [address] [place] [address] PCP - General Internal Medicine 12/28/19 Olga Ochoa MD 230 [place] [address] Specialist Lung Cancer Operator Engineer 03/07/21 Mina Dominguez PA-C [address] [phone] Specialist Thoracic Surgery 04/29/22 Addison Winslow PA-C 175 [facility] 300 [place] [address] Specialist Neurosurgery 05/02/23 June Denton PA-C [address] [address] Specialist Neurosurgery 05/02/23 Nichole Otto MD 175 [facility] 300 [place] [address] Surgeon Neurosurgery 05/02/23 documented as of this encounter
--- OUTSIDE RECORDS SUMMARY | 2024-05-26 07:56 | XMS_ITS | Encounter Summary ---
Author Organization [facility] Address [address] [place] [address] Care Team Providers Care Armor Officer Name Role Phone Riccardo Robledo MD Primary Care Provider [phone] Olga Ochoa MD Unavailable Mina Dominguez-C Unavailable Addison Winslow PA-C Unavailable June Denton PA-C Unavailable [phone] Nichole Otto MD Unavailable [phone] Encounter Details Date Type Department Care Team Description 12/10/2023 Pt. Non Urgent Medical Question [facility] 175 [facility] [address] [place] [address] Akin Delacruz MD 175 [facility] [address] [place], [place] [phone] Social History Tobacco Use Types Packs/Day Years [...] on filedocumented in this encounter Care Teams Armor Officer Relationship Specialty Start Date End Date Riccardo Robledo MD 230 [place] [address] PCP - General Internal Medicine 12/28/19 Olga Ochoa MD 230 [place] [address] Specialist Lung Cancer Judo Instructor 03/07/21 Mina Dominguez PA-C 299 [facility] 410 [place] [address] Specialist Thoracic Surgery 04/29/22 Addison Winslow PA-C 175 [facility] [address] [place] [address] Specialist Neurosurgery 05/02/23 June Denton PA-C 175 [facility] 300 [place] [address] Specialist Neurosurgery 05/02/23 Nichole Otto MD 175 [facility] 300 [place] [address] Surgeon Neurosurgery 05/02/23 documented as of this encounter
--- OUTSIDE RECORDS SUMMARY | 2024-05-26 07:56 | XMS_ITS | Encounter Summary ---
Author Organization [facility] Address [address] [place] [address] Care Team Providers Care Taper And Floater Name Role Phone Riccardo Robledo MD Primary Care Provider [phone] Olga Ochoa MD Unavailable Mina Dominguez-C Unavailable [phone] Addison Winslow PA-C Unavailable [phone] June Denton PA-C Unavailable Nichole Otto MD Unavailable [phone] Encounter Details Date Type Department Care Team Description 06/16/2023 Pt. Non Urgent Medical Question [facility] 175 [facility] [address] [place] [address] Akin Delacruz MD 175 [facility] [address] [place], [place] [phone] Social History Tobacco Use Types Packs/Day Years [...] on filedocumented in this encounter Care Teams Taper And Floater Relationship Specialty Start Date End Date Riccardo Robledo MD 230 [place] [address] PCP - General Internal Medicine 12/28/19 Olga Ochoa MD 230 [place] [address] Specialist Lung Cancer Manager Technical 03/07/21 Mina Dominguez PA-C 299 [facility] 410 [place] [address] Specialist Thoracic Surgery 04/29/22 Addison Winslow PA-C 175 [facility] [address] [place] [address] Specialist Neurosurgery 05/02/23 June Denton PA-C 175 [facility] 300 [place] [address] Specialist Neurosurgery 05/02/23 Nichole Otto MD 175 [facility] 300 [place] [address] Surgeon Neurosurgery 05/02/23 documented as of this encounter
--- OUTSIDE RECORDS SUMMARY | 2024-05-26 07:57 | XMS_ITS | Encounter Summary ---
Author Organization [facility] Address [address] [place] [address] Care Team Providers Care Supervisor Border Department Name Role Phone Riccardo Robledo MD Primary Care Provider Olga Ochoa MD Unavailable Mina Dominguez PA-C Unavailable Addison Winslow PA-C Unavailable June Denton-Will Unavailable Nichole Otto MD Unavailable [phone] Reason for Visit * Reason Onset Date Comments medication problems 12/07/2021 Encounter Details Date Type Department Care Team Description 12/07/2021 Telephone Adult Medicine - [place] [address] [place], [place] [phone] Riccardo Robledo MD 230 [place], [place] [phone] medication problems Social History Tobacco Use Types [...] suspected to have Coronavirus/COVID-19? No / Unsure 11/30/2021 10:01 AM EDT documented as of this encounter Miscellaneous Notes * Telephone Encounter - Carole Maria - 12/07/2021 1:57 PM EDT Nevermind pt decided to wait until Friday * Telephone Encounter - Carole Maria - 12/07/2021 1:54 PM EDT Who is calling? The patient Name of the medication Oxycodone er 20 What is the specific problem or interaction? [facility] [address] [facility] not [facility] enough meds to fill - If the patient is having a problem with taking the med - how long has the problem been going on? N/A documented in this encounter Plan of Treatment Not on file documented as of this encounter Visit Diagnoses Not on filedocumented in this encounter Care Teams Supervisor Border Department Relationship Specialty Start Date End Date Riccardo Robledo MD 230 [place] [address] PCP - General Internal Medicine 12/28/19 Olga Ochoa MD 230 [place] [address] Specialist Lung Cancer Fuel Conversion Technician 03/07/21 Mina Dominguez PA-C 299 [facility] 410 [place] [address] Specialist Thoracic Surgery 04/29/22 Addison Winslow PA-C 175 [facility] [address] [place] [address] Specialist Neurosurgery 05/02/23 June Denton PA-C 175 [facility] [address] [place] [address] Specialist Neurosurgery 05/02/23 Nichole Otto MD [address] [place] [address] Surgeon Neurosurgery 05/02/23 documented as of this encounter
--- OUTSIDE RECORDS SUMMARY | 2024-05-26 07:57 | XMS_ITS | Encounter Summary ---
Author Organization [facility] Address [address] [place] [address] Care Team Providers Care Lining Maker Hand Name Role Phone Riccardo Robledo MD Primary Care Provider [phone] Olga Ochoa MD Unavailable Mina Dominguez-C Unavailable Addison Winslow-C Unavailable [phone] June Denton PA-C Unavailable Nichole Otto MD Unavailable [phone] Encounter Details Date Type Department Care Team Description 12/10/2021 Orders Only [facility] 175 [facility] [address] [place] [address] Sharmila Martinez APRN 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; Subacromial impingement of left shoulder Social History Tobacco Use Types Packs/Day Years [...] AM EDT documented as of this encounter Plan of Treatment Not on file documented as of this encounter Procedures Procedure Name Priority Date/Time Associated Diagnosis Comments MRI OF ARM JOINT / UPPER EXTREMITY JOINT NO CONTRAST Routine 12/07/2021 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 Subacromial impingement of left shoulder documented in this encounter Results * MRI OF ARM JOINT / UPPER EXTREMITY JOINT NO CONTRAST (12/07/2021) Sharmila Martinez VIVI [facility] documented in this encounter Visit Diagnoses Diagnosis 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 Subacromial impingement of left shoulder documented in this encounter Care Teams Lining Maker Hand Relationship Specialty Start Date End Date Riccardo Robledo MD [address] [place] [address] PCP - General Internal Medicine 12/28/19 Olga Ochoa MD 230 [place] [address] Specialist Lung Cancer Registered Nurse Maternal Child 03/07/21 Mina Dominguez PA-C 299 [facility] 410 [place] [address] Specialist Thoracic Surgery 04/29/22 Addison Winslow PA-C 175 [facility] [address] [place] [address] Specialist Neurosurgery 05/02/23 June Denton PA-C 175 [facility] 300 [place] [address] Specialist Neurosurgery 05/02/23 Nichole Otto MD [address] [address] Surgeon Neurosurgery 05/02/23 documented as of this encounter
--- OUTSIDE RECORDS SUMMARY | 2024-05-26 07:57 | XMS_ITS | Encounter Summary ---
Author Organization [facility] Address [address] [place] [address] Care Team Providers Care Fire Prevention Captain Name Role Phone Riccardo Robledo MD Primary Care Provider [phone] Olga Ochoa MD Unavailable Mina Dominguez PA-C Unavailable [phone] Addison Winslow PA-C Unavailable June Denton PA-C Unavailable Nichole Otto MD Unavailable [phone] Encounter Details Date Type Department Care Team Description 03/26/2022 Refill Adult Medicine - [address] [address] Logan Romero PA-C [address] [place] [address] Social History Tobacco Use Types Packs/Day Years [...] on filedocumented in this encounter Care Teams Fire Prevention Captain Relationship Specialty Start Date End Date Riccardo Robledo MD [address] [place] [address] PCP - General Internal Medicine 12/28/19 Olga Ochoa MD 230 [place] [address] Specialist Lung Cancer Pet Food Deboner 03/07/21 Mina Dominguez PA-C 299 [facility] 410 [place] [phone] Specialist Thoracic Surgery 04/29/22 Addison Winslow PA-C [address] [address] Specialist Neurosurgery 05/02/23 June Denton PA-C 175 [facility] 300 [place] [address] Specialist Neurosurgery 05/02/23 Nichole Otto MD [address] [address] Surgeon Neurosurgery 05/02/23 documented as of this encounter
--- OUTSIDE RECORDS SUMMARY | 2024-05-26 07:57 | XMS_ITS | Encounter Summary ---
Author Organization [facility] Address [address] [place] [address] Care Team Providers Care Lead Cytogenetic Technologist Name Role Phone Riccardo Robledo MD Primary Care Provider [phone] Olga Ochoa MD Unavailable Mina Dominguez-C Unavailable [phone] Addison Winslow-C Unavailable June Denton-Will Unavailable Nichole Otto MD Unavailable [phone] Encounter Details Date Type Department Care Team Description 01/29/2023 Pt. Non Urgent Medic al Question Adult Medicine - [place] [address] [place] [address] Riccardo Robledo MD [address] [place] [address] Social History Tobacco Use Types Packs/Day Years [...] suspected to have Coronavirus/COVID-19? No / Unsure 01/15/2023 10:49 AM EDT documented as of this encounter Miscellaneous Notes * Telephone Encounter - Pallavi Finley M.A. - 01/29/2023 2:12 PM ESTFrom: Jv Monroy To: Will Robledo Sent: 01/29/2023 1:36 PM EST Subject: Medicine DR Swanson did you send my Medicine call semaglutide to the pharmacy yet to [facility] on [facility] in [place] Thank you HenryGSantaJr documented in this encounter Plan of Treatment Not on file documented as of this encounter Visit Diagnoses Not on filedocumented in this encounter Care Teams Lead Cytogenetic Technologist Relationship Specialty Start Date End Date Riccardo Robledo MD [address] [place] [address] PCP - General Internal Medicine 12/28/19 Olga Ochoa MD [address] [place] [address] Specialist Lung Cancer Director Private Music Therapy Agency 03/07/21 Mina Dominguez PA-C 299 [facility] 410 [place] [address] Specialist Thoracic Surgery 04/29/22 Addison Winslow PA-C 175 [facility] 300 [place] [address] Specialist Neurosurgery 05/02/23 June Denton PA-C 175 [facility] 300 [place] [address] Specialist Neurosurgery 05/02/23 Nichole Otto MD 175 [facility] 300 [place] [address] Surgeon Neurosurgery 05/02/23 documented as of this encounter
--- OUTSIDE RECORDS SUMMARY | 2024-05-26 07:57 | XMS_ITS | Encounter Summary ---
Author Organization [facility] Address [address] [place] [address] Care Team Providers Care Hotel Assistant General Manager Name Role Phone Riccardo Robledo MD Primary Care Provider [phone] Olga Ochoa MD Unavailable Mina Dominguez-C Unavailable [phone] Addison Winslow-C Unavailable June [place]-Will Unavailable [phone] Nichole Otto MD Unavailable [phone] Encounter Details Date Type Department Care Team Description 01/30/2023 Pt. Non Urgent Medic al Question Adult Medicine - [place] [address] [place] [address] Riccardo Robledo MD [address] [place] [address] Social History Tobacco Use Types Packs/Day Years [...] on filedocumented in this encounter Care Teams Hotel Assistant General Manager Relationship Specialty Start Date End Date Riccardo Robledo MD [address] [place] [address] PCP - General Internal Medicine 12/28/19 Olga Ochoa MD [address] [place] [address] Specialist Lung Cancer Community Cultural Development Officer 03/07/21 Mina Dominguez PA-C [address] [phone] Specialist Thoracic Surgery 04/29/22 Addison Winslow PA-C 175 [facility] [address] [place] [address] Specialist Neurosurgery 05/02/23 June Denton PA-C 175 [facility] [address] [place] [address] Specialist Neurosurgery 05/02/23 Nichole Otto MD 175 [facility] [address] [place] [address] Surgeon Neurosurgery 05/02/23 documented as of this encounter
--- OUTSIDE RECORDS SUMMARY | 2024-05-26 07:57 | XMS_ITS | Encounter Summary ---
Author Organization [facility] Address [address] [place] [address] Care Team Providers Care Airline Captain Name Role Phone Riccardo Robledo MD Primary Care Provider [phone] Olga Ochoa MD Unavailable Mina Dominguez PA-C Unavailable Addison Winslow PA-C Unavailable June [place]-Will Unavailable [phone] Nichole Otto MD Unavailable [phone] Reason for Visit * Reason Onset Date Comments Imaging Review 12/17/2021 L shoulder MRI Encounter Details Date Type Department Care Team Description 12/17/2021 Telephone [facility] Medical [facility] [address] [place] [address] [place] [address] Sharmila Martinez APRN Imaging Review (L shoulder MRI ) Social History Tobacco Use Types Packs/Day [...] on filedocumented in this encounter Care Teams Airline Captain Relationship Specialty Start Date End Date Riccardo Robledo MD [address] [place] [address] PCP - General Internal Medicine 12/28/19 Olga Ochoa MD 230 [place] [address] Specialist Lung Cancer Parts Clerk 03/07/21 Mina Dominguez PA-C [address] [phone] Specialist Thoracic Surgery 04/29/22 Addison Winslow PA-C 175 [facility] [address] [place] [address] Specialist Neurosurgery 05/02/23 June [place] PA-C 175 [facility] [address] [place] [address] Specialist Neurosurgery 05/02/23 Nichole Otto MD 175 [facility] 300 [place] [address] Surgeon Neurosurgery 05/02/23 documented as of this encounter
--- OUTSIDE RECORDS SUMMARY | 2024-05-26 07:57 | XMS_ITS | Encounter Summary ---
Author Organization [facility] Address [address] [place] [address] Care Team Providers Care Manager Philosophy Name Role Phone Riccardo Robledo MD Primary Care Provider Olga Ochoa MD Unavailable Mina Dominguez PA-C Unavailable Addison Winslow PA-C Unavailable June [place]-Will Unavailable Nichole Otto MD Unavailable [phone] Reason for Visit * Reason Onset Date Comments Claim Processor Feedback 11/03/2020 Neurosurgery Encounter Details Date Type Department Care Team Description 11/03/2020 Telephone Adult Medicine - [place] [address] [place], [place] [phone] Riccardo Robledo MD [address] [place] [address] Claim Processor Feedback (Neurosurgery) Social History Tobacco Use Types Packs/Day Years [...] have Coronavirus / COVID-19? No / Unsure 10/05/2020 9:02 AM EDT documented as of this encounter Miscellaneous Notes * Telephone Encounter - Gena Reece - 11/03/2020 9:[address] Robledo, You placed a neurosurgery order for patient to see Dr Salomon at [facility]. Dr Salomon reviewed imaging and stated patient had a pristine spine and is not a candidate for surgery. [facility] be out[facility] to patient to cancel appointment. This referral has been closed. Thank you, Gena Raman Referrals Department documented in this encounter Plan of Treatment Not on file documented as of this encounter Visit Diagnoses Not on filedocumented in this encounter Care Teams Manager Philosophy Relationship Specialty Start Date End Date Riccardo Robledo MD [address] [place] [address] PCP - General Internal Medicine 12/28/19 Olga Ochoa MD [address] [place] [address] Specialist Lung Cancer Canteen Operator 03/07/21 Mina Dominguez PA-C [address] [address] Specialist Thoracic Surgery 04/29/22 Addison Winslow PA-C 175 [facility] [address] [place] [address] Specialist Neurosurgery 05/02/23 June [place] PA-C 175 [facility] [address] [place] [address] Specialist Neurosurgery 05/02/23 Nichole Otto MD 175 [facility] [address] [place] [address] Surgeon Neurosurgery 05/02/23 documented as of this encounter
--- OUTSIDE RECORDS SUMMARY | 2024-05-26 07:57 | XMS_ITS | Encounter Summary ---
Author Organization [facility] Address [address] [place] [address] Care Team Providers Care Machinist Job Setter Name Role Phone Riccardo Robledo MD Primary Care Provider Olga Ochoa MD Unavailable Mina Dominguez PA-C Unavailable Addison Winslow PA-C Unavailable [phone] June [place]-Will Unavailable Nichole Otto MD Unavailable [phone] Reason for Visit * Reason Onset Date Comments medication problems 11/09/2021 oxyCODONE HC l 20 MG Tab and oxyCODONE HCl ER 20 MG Tablet Extended Release 12 hour Abuse-Deterrent Encounter Details Date Type Department Care Team Description 11/09/2021 Telephone Adult Medicine - [place] [address] [place] [address] Riccardo Robledo MD [address] [place] [address] medication problems (oxyCODONE HCl 20 MG Tab and oxyCODONE HCl ER 20 MG Tablet Extended Release 12 hour Abuse-Deterrent) Social History Tobacco Use Types Packs/Day Years [...] suspected to have Coronavirus/COVID-19? No / Unsure 10/31/2021 8:40 AM EDT documented as of this encounter Miscellaneous Notes * Telephone Encounter - Pallavi Finley M.A. - 11/12/2021 7:46 AM EDT Spoke with Neeraj from [employer], she states that this has to go through dedicated team. [phone]. She states she can see that there was a paid claim on 11/09/21 for the oxycodone. Pt does not have a [facility], will call at 9am to make sure he got his scripts. * Telephone Encounter - John Clarke - 11/09/2021 4:30 PM EDT Patient calling and was connected to Patient Services to receive advice on what to do about not getting his medication Prior Auth completed. Patient states he is having a difficult time getting in touch with supervise at the insurance company in order to have the prior Auth completed. Patient states the Ainsley at the insurance company will not connect him to a supervisor coffee. Advised the patient to call the insurance company again and speak to different person and ask to speak to a supervisor coffee as there is nothing else that the office can do to aid him with this issue. Patient states he will call again. * Telephone Encounter - Mireya Figueroa M.A. - 11/09/2021 2:37 PM EDT No one in Prior Auth department, I will try to have this completed. I am not familiar with these. Called Pharmacy , they stated we need to call the number oxyCODONE HCl ER 20 MG Tablet Extended Release 12 hour Abuse-Deterrent oxyCODONE HCl 20 MG Tab [facility] Spent 1 hour on the phone with TE2 Prior Auth Submitted - marked as Urgent They did state this does take a few hours to process. If for some reason the processing does not gothrough patient will just need to check in with the pharmacy tomorrow. Unfortunately it is Friday and if there is still an issue this will need to be addressed on Friday. * Telephone Encounter - Mireya Figueroa M.A. - 11/09/2021 1:39 PM EDT Prior Auth needed * Telephone Encounter - Audrey Cerda - 11/09/2021 1:11 PM EDT Who is calling? The patient Name of the medication oxyCODONE HCl 20 MG Tab and oxyCODONE HCl ER 20 MG Tablet Extended Release 12 hour Abuse-Deterrent What is the specific problem or interaction? States medicare is not covering this medication , Bsr called the pharmacy spoke to Anjel . States per medicare PCP office is to call to have this approved. Pt is worried as he will have no medication for tomorrow. Pt is looking for a call back as soon as this is straightened out If the patient is having a problem with taking the med - how long has the problem been going on? N/A documented in this encounter Plan of Treatment Not on file documented as of this encounter Visit Diagnoses Not on filedocumented in this encounter Care Teams Machinist Job Setter Relationship Specialty Start Date End Date Riccardo Robledo MD [address] [place] [address] PCP - General Internal Medicine 12/28/19 Olga Ochoa MD [address] [place] [address] Specialist Lung Cancer Rubber Stamp Maker 03/07/21 Mina Dominguez PA-C 299 [facility] [address] [place] [address] Specialist Thoracic Surgery 04/29/22 Addison Winslow PA-C 175 [facility] 300 [place] [address] Specialist Neurosurgery 05/02/23 June [place] PA-C 175 [facility] 300 [place] [address] Specialist Neurosurgery 05/02/23 Nichole Otto MD 175 [facility] 300 [place], [place] [phone] Surgeon Neurosurgery 05/02/23 documented as of this encounter
--- OUTSIDE RECORDS SUMMARY | 2024-05-26 07:57 | XMS_ITS | Encounter Summary ---
Author Organization [facility] Address [address] [place] [address] Care Team Providers Care Assembler Convertible Top Name Role Phone Riccardo Robledo MD Primary Care Provider [phone] Olga Ochoa MD Unavailable Mina Dominguez PA-C Unavailable [phone] Addison Winslow-C Unavailable June [place]-Will Unavailable Nichole Otto MD Unavailable [phone] Encounter Details Date Type Department Care Team Description 03/01/2022 Refill Adult Medicine [address] [address] Riccardo Robledo, [address] [place] [address] Social History Tobacco Use Types Packs/Day Years [...] suspected to have Coronavirus/COVID-19? No / Unsure 01/31/2022 8:52 AM EST documented as of this encounter Plan of Treatment Not on file documented as of this encounter Visit Diagnoses Not on filedocumented in this encounter Care Teams Assembler Convertible Top Relationship Specialty Start Date End Date Riccardo Robledo MD [address] [place] [address] PCP - General Internal Medicine 12/28/19 Olga Ochoa MD [address] [place] [address] Specialist Lung Cancer Team Otr Truck Driver 03/07/21 Mina Dominguez PA-C [address] [phone] Specialist Thoracic Surgery 04/29/22 Addison Winslow PA-C 175 [facility] [address] [place] [address] Specialist Neurosurgery 05/02/23 June [place]enton PA-C 175 [facility] [address] [place] [address] Specialist Neurosurgery 05/02/23 Nichole Otto MD 175 [facility] [address] [place] [address] Surgeon Neurosurgery 05/02/23 documented as of this encounter
--- OUTSIDE RECORDS SUMMARY | 2024-05-26 07:57 | XMS_ITS | Encounter Summary ---
Author Organization [facility] Address [address] [place] [address] Care Team Providers Care Emergency Detail Driver Name Role Phone Riccardo Robledo MD Primary Care Provider Olga Ochoa MD Unavailable Mina Dominguez-C Unavailable [phone] Addison WinslowC Unavailable [phone] June [place]enton PA-C Unavailable [phone] Nichole Otto MD Unavailable [phone] Encounter Details Date Type Department Care Team Description 01/23/2023 Financial Reporting Manager Report Medical Records [address] [place] [address] Liborio Nguyễn MD Social History Tobacco Use [...] Recorded In the last 10 days, have alicia escobedo been in contact with someone who was confirmed or suspected to have Coronavirus/COVID-19? No / Unsure 01/15/2023 10:49 AM EDT documented as of this encounter Plan of Treatment Not on file documented as of this encounter Visit Diagnoses Not on filedocumented in this encounter Care Teams Emergency Detail Driver Relationship Specialty Start Date End Date Riccardo Robledo MD 230 [place] [address] PCP - General Internal Medicine 12/28/19 Olga Ochoa MD 230 [place] [address] Specialist Lung Cancer Rope Walker 03/07/21 Mina Dominguez PA-C 299 [facility] 410 [place] [address] Specialist Thoracic Surgery 04/29/22 Addison Winslow PA-C 175 [facility] [address] [place] [address] Specialist Neurosurgery 05/02/23 June [place] PA-C 175 [facility] 300 [place] [address] Specialist Neurosurgery 05/02/23 Nichole Otto MD 175 [facility] 300 [place] [address] Surgeon Neurosurgery 05/02/23 documented as of this encounter
--- OUTSIDE RECORDS SUMMARY | 2024-05-26 07:57 | XMS_ITS | Encounter Summary ---
Author Organization [facility] Address [address] [place] [address] Care Team Providers Care Take Off Man Name Role Phone Riccardo Robledo MD Primary Care Provider Olga Ochoa MD Unavailable Mina Dominguez-C Unavailable [phone] Addison WinslowC Unavailable June [place] PA-C Unavailable [phone] Nichole Otto MD Unavailable [phone] Encounter Details Date Type Department Care Team Description 01/04/2022 Hard Rock Miner Report Medical Records [address] [place] [address] Wilmar Beal MD Social History Tobacco Use [...] suspected to have Coronavirus/COVID-19? No / Unsure 01/04/2022 1:55 PM EDT documented as of this encounter Plan of Treatment Not on file documented as of this encounter Visit Diagnoses Not on filedocumented in this encounter Care Teams Take Off Man Relationship Specialty Start Date End Date Riccardo Robledo MD [address] [place] [address] PCP - General Internal Medicine 12/28/19 Olga Ochoa MD [address] [place] [address] Specialist Lung Cancer Employee Service Officer 03/07/21 Mina Dominguez PA-C 299 [facility] [address] [place] [address] Specialist Thoracic Surgery 04/29/22 Addison Winslow PA-C 175 [facility] [address] [place] [address] Specialist Neurosurgery 05/02/23 June [place] PA-C 175 [facility] [address] [place] [address] Specialist Neurosurgery 05/02/23 Nichole Otto MD 175 [facility] 300 [place] [address] Surgeon Neurosurgery 05/02/23 documented as of this encounter
--- OUTSIDE RECORDS SUMMARY | 2024-05-26 07:57 | XMS_ITS | Encounter Summary ---
Author Organization [facility] Address [address] [place] [address] Care Team Providers Care Cat Dog Or Other Pet Groomer Name Role Phone Riccardo Robledo MD Primary Care Provider Olga Ochoa MD Unavailable Mina Dominguez PA-C Unavailable [phone] Addison Winslow PA-C Unavailable [phone] June [place]enton PA-C Unavailable [phone] Nichole Otto MD Unavailable [phone] Encounter Details Date Type Department Care Team Description 12/05/2020 Business Doc Medical Records [address] [place] [address] Abstract, Provider Social History Tobacco Use Types [...] have Coronavirus / COVID-19? No / Unsure 12/08/2020 8:45 AM EDT documented as of this encounter Plan of Treatment Not on file documented as of this encounter Visit Diagnoses Not on filedocumented in this encounter Care Teams Cat Dog Or Other Pet Groomer Relationship Specialty Start Date End Date Riccardo Robledo MD 230 [place] [address] PCP - General Internal Medicine 12/28/19 Olga Ochoa MD 230 [place] [address] Specialist Lung Cancer Claims Vice President 03/07/21 Mina Dominguez PA-C 299 [facility] [address] [place] [phone] Specialist Thoracic Surgery 04/29/22 Addison Winslow PA-C 175 [facility] [address] [place] [address] Specialist Neurosurgery 05/02/23 June [place] PA-C 175 [facility] 300 [place] [address] Specialist Neurosurgery 05/02/23 Nichole Otto MD 175 [facility] 300 [place] [address] Surgeon Neurosurgery 05/02/23 documented as of this encounter
--- OUTSIDE RECORDS SUMMARY | 2024-05-26 07:57 | XMS_ITS | Referral Summary ---
Author Organization [facility] Address [address] [place] [address] Care Team Providers Care Mine Technician Name Role Phone Mireya Robledo Primary Care [...] of Treatment Not on file Insurance [facility]ICARE [facility] Care Teams Mine Technician Relationship Specialty Start Date End Date Mireya Robledo [address] [place] [address] PCP - General Internal Medicine 11/04/23
--- OUTSIDE RECORDS SUMMARY | 2024-05-26 07:57 | XMS_ITS | Clinical Summary ---
Author Organization [facility] Address [address] [place] [address] Care Team Providers Care Team Facilitator Name Role Phone Mireya Robledo Primary Care [...] of 3 - 19+ 3-dose series) 07/16/1986 Pneumococcal Vaccine: 50+ Ye ars (3 of 3 - PCV20 or PCV21) 04/30/2022 04/30/2017, 11/17/2014 COVID-19 Vaccine (4 - 2023-2 5 season) 2023 01/16/2021, 05/17/2020, 04/19/2020 Alcohol/Substance Use Screening 03/24/2024 Social Drivers of Health Ciara ual Screening 03/24/2024 DTaP,Tdap,and Td Vaccines (2 - Td or Tdap) 11/30/2025 12/01/2015 RSV Vaccine (60+ years old a nd patients) (1 - 1-dose 75+ series) 07/16/2042 Zoster Vaccines Completed 11/08/2017, 07/24/2017 Influenza Vaccine Completed 10/29/2023, , 11/08/2021, Additional history exists Insurance MEDICARE [facility] Care Teams Team Facilitator Relationship Specialty Start Date End Date Mireya Robledo [address] [place] [address] PCP - General Internal Medicine 11/04/23
--- OUTSIDE RECORDS SUMMARY | 2024-05-26 07:57 | XMS_ITS | Encounter Summary ---
Author Organization [facility] Address [address] [place] [address] Care Team Providers Care Box Order Person Name Role Phone Riccardo Robledo MD Primary Care Provider Olga Ochoa MD Unavailable Mina DominguezC Unavailable [phone] Addison Winslow PA-C Unavailable June Denton PA-C Unavailable [phone] Nichole Otto MD Unavailable [phone] Encounter Details Date Type Department Care Team Description 10/10/2020 Supplier Quality Engineering Manager Report Medical Records [address] [place] [id number] Richie Alba MD, PHD Social History Tobacco [...] on filedocumented in this encounter Care Teams Box Order Person Relationship Specialty Start Date End Date Riccardo Robledo MD [address] [place] [address] PCP - General Internal Medicine 12/28/19 Olga Ochoa MD [address] [place] [address] Specialist Lung Cancer Plow Mechanic 03/07/21 Mina Dominguez PA-C 299 [facility] [address] [place] [address] Specialist Thoracic Surgery 04/29/22 Addison Winslow PA-C 175 [facility] [address] [place] [address] Specialist Neurosurgery 05/02/23 June Denton PA-C 175 [facility] 300 [place] [address] Specialist Neurosurgery 05/02/23 Nichole Otto MD 175 [facility] 300 [place] [address] Surgeon Neurosurgery 05/02/23 documented as of this encounter
--- OUTSIDE RECORDS SUMMARY | 2024-05-26 07:57 | XMS_ITS | Encounter Summary ---
Author Organization [facility] Address [address] [place] [address] Care Team Providers Care Branch Lead Name Role Phone Riccardo Robledo MD Primary Care Provider Olga Ochoa MD Unavailable Mina Dominguez PA-C Unavailable [phone] Addison Winslow PA-C Unavailable [phone] June Denton PA-C Unavailable [phone] Nichole Otto MD Unavailable [phone] Encounter Details Date Type Department Care Team Description 03/10/2023 Orders Only Medical Records [address] [place] [address] Logan Johnson PA-C Social History Tobacco Use Types Packs/Day Years [...] Associated Diagnosis Comments OUTSIDE PLAIN FILM Routine 03/10/2023 documented in this encounter Results * OUTSIDE PLAIN FILM (03/10/2023) Logan Johnson PA-C RADIOLOGY documented in this encounter Visit Diagnoses Not on filedocumented in this encounter Care Teams Branch Lead Relationship Specialty Start Date End Date Riccardo Robledo MD [address] [place] [address] PCP - General Internal Medicine 12/28/19 Olga Ochoa MD [address] [place] [address] Specialist Lung Cancer Spanish Interpreter 03/07/21 Mina Dominguez PA-C [address] [phone] Specialist Thoracic Surgery 04/29/22 Addison Winslow PA-C 175 [facility] 300 [place] [address] Specialist Neurosurgery 05/02/23 June Denton PA-C 175 [facility] 300 [place] [address] Specialist Neurosurgery 05/02/23 Nichole Otto MD [address] [address] Surgeon Neurosurgery 05/02/23 documented as of this encounter
--- OUTSIDE RECORDS SUMMARY | 2024-05-26 07:57 | XMS_ITS | Encounter Summary ---
Author Organization [facility] Address [address] [place] [address] Care Team Providers Care Orthopedic Podiatrist Name Role Phone Riccardo Robledo MD Primary Care Provider [phone] Olga Ochoa MD Unavailable Mina DominguezC Unavailable [phone] Addison WinslowC Unavailable [phone] June Denton PA-C Unavailable [phone] Nichoel Otto MD Unavailable [phone] Encounter Details Date Type Department Care Team Description 12/06/2020 Call Center Representative Report Medical Records [address] [place] [address] Johnathan Cerda MD Social History Tobacco Use [...] on filedocumented in this encounter Care Teams Orthopedic Podiatrist Relationship Specialty Start Date End Date Riccardo Robledo MD 230 [place] [address] PCP - General Internal Medicine 12/28/19 Olga Ochoa MD 230 [place] [address] Specialist Lung Cancer Child Caregiver 03/07/21 Mina Dominguez PA-C 299 [facility] 410 [place] [phone] Specialist Thoracic Surgery 04/29/22 Addison Winslow PA-C 175 [facility] 300 [place] [address] Specialist Neurosurgery 05/02/23 June Denton PA-C 175 [facility] 300 [place] [address] Specialist Neurosurgery 05/02/23 Nichole Otto MD 175 [facility] 300 [place] [address] Surgeon Neurosurgery 05/02/23 documented as of this encounter
--- OUTSIDE RECORDS SUMMARY | 2024-05-26 07:57 | XMS_ITS | Encounter Summary ---
Author Organization [facility] Address [address] [place] [address] Care Team Providers Care Rvda Master Certified Rv Technician Name Role Phone Riccardo Robledo MD Primary Care Provider [phone] Olga Ochoa MD Unavailable Mina Dominguez PA-C Unavailable Addison Winslow-C Unavailable June Denton-Will Unavailable Nichole Otto MD Unavailable [phone] Encounter Details Date Type Department Care Team Description 12/07/2020 Telephone Adult Medicine - [place] [address] [place], [place] [phone] Riccardo Robledo MD [address] [place], [place] [phone] Social History Tobacco Use Types Packs/Day Years [...] on filedocumented in this encounter Care Teams Rvda Master Certified Rv Technician Relationship Specialty Start Date End Date Riccardo Robledo MD 230 [place] [address] PCP - General Internal Medicine 12/28/19 Olga Ochoa MD 230 [place] [address] Specialist Lung Cancer Talent Engineer 03/07/21 Mina Dominguez PA-C 299 [facility] 410 [place] [phone] Specialist Thoracic Surgery 04/29/22 Addison Winslow PA-C [address] [address] Specialist Neurosurgery 05/02/23 June Denton PA-C 175 [facility] 300 [place] [address] Specialist Neurosurgery 05/02/23 Nichole Otto MD [address] [address] Surgeon Neurosurgery 05/02/23 documented as of this encounter
--- OUTSIDE RECORDS SUMMARY | 2024-05-26 07:57 | XMS_ITS | Encounter Summary ---
Author Organization [facility] Address [address] [place] [address] Care Team Providers Care Research Spec Name Role Phone Mireya Robledo MD Primary Care Prov ider Reason for Visit * Reason Onset Date Comments Drug / Alcohol Assessment 05/18/2024 Encounter Details Date Type Department Care Team ([facility] st Contact Info) Description 05/18/2024 Telephone Adult [address] [address] Mary Austin LPN Drug / Alcohol Assessment Social History Tobacco Use Types Packs/Day Years [...] Progress Notes * Mireya Figueroa MA - 05/20/2024 11:07 AM EST UDS completed 05/19/24 * Mary Austin LPN - 05/19/2024 11:54 AM EST Pt was notified to complete a random urine drug screen in our [facility] by 05/20. The patient was also instructed that failure to complete this urine drug screen, as requested,would jeopardize their Controlled Substance Contract with [facility]. The patient expressed understanding of the instructions and confirmed that they will arrive by that date. * Mary Austin LPN - 05/19/2024 11:51 AM EST Pt was notified to complete a random urine drug screen in our [facility] by 05/20/24. The patient was also instructed that failure to complete this urine drug screen, as requested, would jeopardize their Controlled Substance Contract with [facility]. The patient expressed understanding of the instructions and confirmed that they will arrive by that date. * Mary Austin LPN - 05/18/2024 8:45 AM EST UDS DUE AND PENDED Please sign and route back when signed documented in this encounter Plan of Treatment Upcoming Encounters Date Type Department Care Team (Late st Contact Info) Description 05/26/2024 9:30 AM EST Office Visit Orthopedic Surgery - [place] 160 175 [facility] 160 [place] [address] Akin Delacruz MD 175 [facility] 160 [place] [address] 05/28/2024 9:30 AM EST Office Visit Adult Medicine - [place] [address] [place] [phone] Logan Romero PA [address] [place] [address] 06/03/2024 9:45 AM EDT Office Visit Bariatric Surgery - [place] 175 [facility] [address] [place] [phone] Sahara Villela MD 175 [facility] 120 [place] [address] 07/15/2024 10:15 AM EDT Office Visit Orthopedic Surgery - [place] 250 175 [facility] [address] [place] [address] Mina Eckert DPM [address] [address] 09/17/2024 11:00 AM EDT Office Visit Adult Medicine - [place] [address] [place] [address] Mireya Robledo MD 230 [place] [address] documented as of this encounter Results * (ABNORMAL) Drug abuse screen expanded with reflex confirmation, urine (05/19/2024 1:08 PM EST) Amphetamine Screen, Ur Negative Negative LAB CHEMISTRY METHOD 5 3:52 PM [facility] Comment:Certain OTC medicati ons containing ephedrine, phenylephrine, pseudoephedrine and phenylpropanolamine can cause false positive results. Barbiturate Screen, Ur Negative Negative LAB CHEMISTRY METHOD 5 3:52 PM [facility] Benzodiazepine Screen, Ur Negative Negative LAB CHEMISTRY METHOD 5 3:52 PM [facility] Cocaine Screen, Ur Negative Negative LAB CHEMISTRY METHOD 5 3:52 PM [facility] Opiate Screen, Ur Positive(A ) Negative LAB CHEMISTRY METHOD 5 3:52 PM [facility] Cannabinoid (THC) Screen, Ur Negative Negative LAB CHEMISTRY METHOD 5 3:52 PM [facility] Comment:Specimens from patie nts taking pantoprazole sodium (Protonix) have been shown to produce false positive results. Fentanyl, Ur Negative Negative LAB CHEMISTRY METHOD 5 3:52 PM EST [facility] Oxycodone Screen, Ur Positive(A ) Negative LAB CHEMISTRY METHOD 3:52 PM EST [facility] Urine Urine specimen obtained by clean catch procedure / Unknown Non-blood Collection / Unknown 05/19/2024 1:08 PM EST 05/19/2024 1:08 PM EST Narrative [facility] - 05/19/2024 3:52 PM EST Assay cutoffs: Amphetamines ? 1000 ng/mL Barbiturates ?200 ng/mL Benzodiazepines ?? 200 ng/mL Cocaine ? 300 ng/mL Fentanyl ?1 ng/mL Opiates ? 300 ng/mL Oxycodone ? 100 ng/mL THC ?50 ng/mL Semi-quantitative assay for screening purposes only. Unconfirmed screening result should not be used for non-medical purposes. *POSITIVE RESULTS ARE AUTOMATICALLY SENT FOR ALTERNATE METHOD CONFIRMATION* Mireya Robledo MD LAB URINE ORDERABL ES Final Result [facility] [address] [place] [address], documented in this encounter Visit Diagnoses Diagnosis Encounter for long-term (current) drug use- Primary documented in this encounter Care Teams Research Spec Relationship Specialty Start Date End Date Mireya Robledo MD [address] [place] [address] PCP - General Internal Medicine 02/02/24 documented as of this encounter
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
--- OUTSIDE RECORDS SUMMARY | 2024-05-26 07:57 | XMS_ITS | Encounter Summary ---
Author Organization [facility] Address [address] [place] [address] Care Team Providers Care Munitions Worker Name Role Phone Riccardo Robledo MD Primary Care Provider [phone] Olga Ochoa MD Unavailable Mina Dominguez PA-C Unavailable Addison Winslow PA-C Unavailable [phone] June Denton PA-C Unavailable [phone] Nichole Otto MD Unavailable [phone] Encounter Details Date Type Department Care Team Description 03/01/2022 Refill [facility] Thoracic Surgery [place] 299 [facility] [address] [place] [phone] Mina Dominguez PA-C 299 [facility] [place] [address] [place] [phone] Social History Tobacco Use Types Packs/Day Years [...] on filedocumented in this encounter Care Teams Munitions Worker Relationship Specialty Start Date End Date Riccardo Robledo MD 230 [place] [address] PCP - General Internal Medicine 12/28/19 Olga Ochoa MD 230 [place] [address] Specialist Lung Cancer Perinatology Physician 03/07/21 Mina Dominguez PA-C [address] [phone] Specialist Thoracic Surgery 04/29/22 Addison Winslow PA-C 175 [facility] [address] [place] [address] Specialist Neurosurgery 05/02/23 June Denton PA-C 175 [facility] 300 [place] [address] Specialist Neurosurgery 05/02/23 Nichole Otto MD 175 [facility] [address] [place] [address] Surgeon Neurosurgery 05/02/23 documented as of this encounter
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
--- OUTSIDE RECORDS SUMMARY | 2024-05-26 07:57 | XMS_ITS | Encounter Summary ---
Author Organization [facility] Address [address] [place] [address] Care Team Providers Care Machinery Rigger Name Role Phone Riccardo Robledo MD Primary Care Provider Olga Ochoa MD Unavailable Mina Dominguez PA-C Unavailable Addison Winslow PA-C Unavailable June Denton PA-C Unavailable Nichole Otto MD Unavailable [phone] Reason for Visit * Reason Onset Date Comments Prior Authorization 01/29/2023 Encounter Details Date Type Department Care Team Description 01/29/2023 Pt. Non Urgent Medic al Question Adult Medicine - [place] [address] [place] [address] Riccardo Robledo MD [address] [place] [address] Social History Tobacco Use Types Packs/Day Years [...] encounter Miscellaneous Notes * Telephone Encounter - Mireya Figueroa M.A. - 01/29/2023 3:53 PM ESTFrom: Jv Monroy To: Will Robledo Sent: 01/29/2023 3:49 PM EST Subject: Medicine DR Swanson the medicine you sent to the pharmacy needs a prior off rybelsus 3 mg could please try to get this approved Thank you [email or web address] documented in this encounter Plan of Treatment Not on file documented as of this encounter Visit Diagnoses Not on filedocumented in this encounter Care Teams Machinery Rigger Relationship Specialty Start Date End Date Riccardo Robledo MD [address] [place] [address] PCP - General Internal Medicine 12/28/19 Olga Ochoa MD 230 [place] [address] Specialist Lung Cancer Tube Winder 03/07/21 Mina Dominguez PA-C [address] [phone] Specialist Thoracic Surgery 04/29/22 Addison Winslow PA-C 175 [facility] [address] [place] [address] Specialist Neurosurgery 05/02/23 June Denton PA-C 175 [facility] 300 [place] [address] Specialist Neurosurgery 05/02/23 Nichole Otto MD 175 [facility] 300 [place] [address] Surgeon Neurosurgery 05/02/23 documented as of this encounter
--- OUTSIDE RECORDS SUMMARY | 2024-05-26 07:57 | XMS_ITS | Encounter Summary ---
Author Organization [facility] Address [address] [place] [address] Care Team Providers Care Night Worker Name Role Phone Riccardo Robledo MD Primary Care Provider [phone] Olga Ochoa MD Unavailable Mina Dominguez-C Unavailable [phone] Addison Winslow-C Unavailable June Denton-Will Unavailable Nichole Otto MD Unavailable [phone] Encounter Details Date Type Department Care Team Description 02/19/2023 Pt. Non Urgent Medic al Question Adult Medicine - [place] [address] [place] [address] Riccardo Robledo MD [address] [place] [address] Social History Tobacco Use Types Packs/Day Years [...] suspected to have Coronavirus/COVID-19? No / Unsure 02/07/2023 8:58 AM EST documented as of this encounter Miscellaneous Notes * Telephone Encounter - Mireya Figueroa M.A. - 02/19/2023 10:14 AM ESTFrom: Jv Monroy To: Will Robledo Sent: 02/19/2023 7:00 AM EST Subject: Weight loss med DR Swanson could try to send these meds to the pharmacy to see if the insurance pay for it for weight loss it call contrave and the other one is chetanvsoham documented in this encounter Plan of Treatment Not on file documented as of this encounter Visit Diagnoses Not on filedocumented in this encounter Care Teams Night Worker Relationship Specialty Start Date End Date Riccardo Robledo MD [address] [place] [address] PCP - General Internal Medicine 12/28/19 Olga Ochoa MD [address] [place] [address] Specialist Lung Cancer Hand Hose Cutter 03/07/21 Mina Dominguez PA-C [address] [phone] Specialist Thoracic Surgery 04/29/22 Addison Winslow PA-C 175 [facility] [address] [place] [address] Specialist Neurosurgery 05/02/23 June Denton PA-C 175 [facility] 300 [place] [address] Specialist Neurosurgery 05/02/23 Nichole Otto MD [address] [address] Surgeon Neurosurgery 05/02/23 documented as of this encounter
--- OUTSIDE RECORDS SUMMARY | 2024-05-26 07:57 | XMS_ITS | Encounter Summary ---
Author Organization [facility] Address [address] [place] [address] Care Team Providers Care Merchandising Specialist Name Role Phone Riccardo Robledo MD Primary Care Provider Olga Ochoa MD Unavailable Mina Dominguez-C Unavailable [phone] Addison WinslowC Unavailable [phone] June Denton PA-C Unavailable [phone] Nichole Otto MD Unavailable [phone] Encounter Details Date Type Department Care Team Description 02/20/2023 Hospital Medical Records [address] [place] [address] Wilmar eBal MD Social History Tobacco Use Types Packs/Day [...] on filedocumented in this encounter Care Teams Merchandising Specialist Relationship Specialty Start Date End Date Riccardo Robledo MD [address] [place] [address] PCP - General Internal Medicine 12/28/19 Olga Ochoa MD 230 [place] [address] Specialist Lung Cancer Rv Mechanic 03/07/21 Mina Dominguez PA-C 299 [facility] [address] [place] [address] Specialist Thoracic Surgery 04/29/22 Addison Winslow PA-C 175 [facility] [address] [place] [address] Specialist Neurosurgery 05/02/23 June Denton PA-C 175 [facility] 300 [place] [address] Specialist Neurosurgery 05/02/23 Nichole Otto MD 175 [facility] 300 [place] [address] Surgeon Neurosurgery 05/02/23 documented as of this encounter
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
--- OUTSIDE RECORDS SUMMARY | 2024-05-26 07:57 | XMS_ITS | Encounter Summary ---
Author Organization [facility] Address [address] [place] [address] Care Team Providers Care Cattle Shipper Name Role Phone Community, Pcp Primary Care Provider UnavailSolo Jamil Primary Care Provider Unav ailable Aston Daniel NP Primary Care Provider Unavail able Riccardo Robledo MD Primary Care Provider [phone] Olga Ochoa MD Unavailable Mina Dominguez PA-C Unavailable [phone] Addison Winslow PA-C Unavailable June Denton PA-C Unavailable Nichole Otto MD Unavailable [phone] Encounter Details Date Type Department Care Team Description 05/20/2008 Hospital Medical Records [address] [place] [address] Logan Brice Social History Tobacco Use Types Packs/Day Years [...] on filedocumented in this encounter Care Teams Cattle Shipper Relationship Specialty Start Date End Date Community, Pcp PCP - General 02/20/10 09/25/17 Solo Lozada PCP - General 03/24/05 02/19/10 Aston Daniel NP PCP - General Family Practice 09/26/17 12/27/19 Riccardo Robledo MD 230 [place] [address] PCP - General Internal Medicine 12/28/19 Olga Ochoa MD 230 [place] [address] Specialist Lung Cancer X Ray Service Technician 03/07/21 Mina Dominugez PA-C [address] [phone] Specialist Thoracic Surgery 04/29/22 Addison Winslow PA-C 175 [facility] [address] [place] [address] Specialist Neurosurgery 05/02/23 June Denton PA-C 175 [facility] [address] [place] [address] Specialist Neurosurgery 05/02/23 Nichole Otto MD 175 [facility] [address] [place] [address] Surgeon Neurosurgery 05/02/23 documented as of this encounter
--- OUTSIDE RECORDS SUMMARY | 2024-05-26 07:57 | XMS_ITS | Encounter Summary ---
Author Organization [facility] Address [address] [place] [address] Care Team Providers Care Locomotive Pipe Fitter Name Role Phone Riccardo Robledo MD Primary Care Provider Olga Ochoa MD Unavailable Mina Dominguez PA-C Unavailable [phone] Addison Winslow PA-C Unavailable June Denton PA-C Unavailable [phone] Nichole Otto MD Unavailable [phone] Encounter Details Date Type Department Care Team Description 01/30/2021 Transfer Records Medical Records [address] [place] [address] Abstract, Provider Social History Tobacco Use Types [...] on filedocumented in this encounter Care Teams Locomotive Pipe Fitter Relationship Specialty Start Date End Date Riccardo Robledo MD 230 [place] [address] PCP - General Internal Medicine 12/28/19 Olga Ochoa MD [address] [place] [address] Specialist Lung Cancer Signal Circuit Designer 03/07/21 Mina Dominguez PA-C 299 [facility] [address] [place] [phone] Specialist Thoracic Surgery 04/29/22 Addison Winslow PA-C 175 [facility] 300 [place] [address] Specialist Neurosurgery 05/02/23 June Denton PA-C 175 [facility] 300 [place] [address] Specialist Neurosurgery 05/02/23 Nichole Otto MD 175 [facility] [address] [place] [address] Surgeon Neurosurgery 05/02/23 documented as of this encounter
--- OUTSIDE RECORDS SUMMARY | 2024-05-26 07:57 | XMS_ITS | Encounter Summary ---
Author Organization [facility] Address [address] [place] [address] Care Team Providers Care Sanitation Inspector Name Role Phone Riccardo Robledo MD Primary Care Provider [phone] Olga Ochoa MD Unavailable Mina Dominguez PA-C Unavailable [phone] Addison Winslow PA-C Unavailable June Denton PA-C Unavailable [phone] Nichole Otto MD Unavailable [phone] Encounter Details Date Type Department Care Team Description 02/06/2023 Pt. Non Urgent Medic al Question Adult Medicine - [address] [place] [address] [address] Logan Romero PA-C [address] [place] [address] Social History Tobacco Use Types Packs/Day Years [...] Telephone Encounter - Mireya Figueroa M.A. - 02/06/2023 8:42 AM ESTFrom: Jv Monroy To: Danisha Romero Sent: 02/06/2023 7:18 AM EST Subject: Medicine Did they did the prior off on the medication that was sent to the [facility] pharmacy yesterday by Byron Romero the pharmacy sent you a message how to do it and list of medications same as the medication Byron hernandez to get approve please let me know documented in this encounter Plan of Treatment Not on file documented as of this encounter Visit Diagnoses Not on filedocumented in this encounter Care Teams Sanitation Inspector Relationship Specialty Start Date End Date Riccardo Robledo MD [address] [place] [address] PCP - General Internal Medicine 12/28/19 Olga Ochoa MD [address] [place] [address] Specialist Lung Cancer Slasher 03/07/21 Mina Dominguez PA-C [address] [phone] Specialist Thoracic Surgery 04/29/22 Addison Winslow PA-C [address] [address] Specialist Neurosurgery 05/02/23 June Denton PA-C 175 [facility] 300 [place] [address] Specialist Neurosurgery 05/02/23 Nichole Otto MD [address] [address] Surgeon Neurosurgery 05/02/23 documented as of this encounter
--- OUTSIDE RECORDS SUMMARY | 2024-05-26 07:57 | XMS_ITS | Encounter Summary ---
Author Organization [facility] Address [address] [place] [address] Care Team Providers Care Velvet Cutter Name Role Phone Riccardo Robledo MD Primary Care Provider Olga Ochoa MD Unavailable Mina Dominguez PA-C Unavailable [phone] Addison Winslow PA-C Unavailable [phone] June Denton PA-C Unavailable [phone] Nichole Otto MD Unavailable [phone] Encounter Details Date Type Department Care Team Description 12/16/2020 Heel Cementer Report Medical Records [address] [place], [place] [address] [place] [address], [facility]2 [place] [address] Social History Tobacco Use Types Packs/Day Years [...] have Coronavirus / COVID-19? No / Unsure 12/19/2020 9:35 AM EDT documented as of this encounter Plan of Treatment Not on file documented as of this encounter Visit Diagnoses Not on filedocumented in this encounter Care Teams Velvet Cutter Relationship Specialty Start Date End Date Riccardo Robledo MD 230 [place] [address] PCP - General Internal Medicine 12/28/19 Olga Ochoa MD [address] [place] [address] Specialist Lung Cancer Assistant To The Director 03/07/21 Mina Dominguez PA-C [address] [phone] Specialist Thoracic Surgery 04/29/22 Addison Winslow PA-C 175 [facility] 300 [place] [address] Specialist Neurosurgery 05/02/23 June Denton PA-C 175 [facility] 300 [place] [address] Specialist Neurosurgery 05/02/23 Nichole Otto MD [address] [address] Surgeon Neurosurgery 05/02/23 documented as of this encounter
--- OUTSIDE RECORDS SUMMARY | 2024-05-26 07:57 | XMS_ITS | Encounter Summary ---
Author Organization [facility] Address [address] [place] [address] Care Team Providers Care Washer Repairman Name Role Phone Riccardo Robledo MD Primary Care Provider Olga Ochoa MD Unavailable Mina Dominguez PA-C Unavailable [phone] Addison Winslow PA-C Unavailable June Denton-Will Unavailable Nichole Otto MD Unavailable [phone] Reason for Visit * Reason Onset Date Comments medication problems 02/11/2023 Encounter Details Date Type Department Care Team Description 02/11/2023 Telephone Adult Medicine - [place] [address] [place], [place] [phone] Riccardo Robledo MD [address] [place], [place] [phone] medication problems Social History Tobacco Use Types [...] encounter Miscellaneous Notes * Telephone Encounter - Logan Romero PA-C - 02/11/2023 5:05 PM EST I do not think it is a good idea to use any of these medications. His BMI is not even 30. We are not going to get any of these approved in this case. * Telephone Encounter - Pallavi Finley M.A. - 02/11/2023 2:03 PM EST The mounjaro was not covered. Not on formulary . Pt requesting an rx for any of the alternatives. (im not completely sure but they may only be covered for Diabetes mellitus type 2 dx. Trulicity Victoza Ozempic Bydureon Do you want to change rx? Thank you Please reply back to [id number] Prior Auth Pool [facility] Prior Authorization Ext [id number] * Telephone Encounter - Carole Englishsheldon - 02/11/2023 12:34 PM EST Who is calling? The patient Name of the medication mounjaro What is the specific problem or interaction? Ins does not cover - pt will try Ozempic,trulicity,victoza,bydureon inj If the patient is having a problem with taking the med - how long has the problem been going on? N/A documented in this encounter Plan of Treatment Not on file documented as of this encounter Visit Diagnoses Not on filedocumented in this encounter Care Teams Washer Repairman Relationship Specialty Start Date End Date Riccardo Robledo MD [facility] [place] [address] PCP - General Internal Medicine 12/28/19 Olga Ochoa MD 230 [place] [address] Specialist Lung Cancer Head Of Business Development 03/07/21 Mina Dominguez PA-C [address] [facility] [address] [place] [address] Specialist Thoracic Surgery 04/29/22 Addison Winslow PA-C 175 [facility] [address] [place] [address] Specialist Neurosurgery 05/02/23 June Denton PA-C 175 [facility] [address] [place] [address] Specialist Neurosurgery 05/02/23 Nichole Otto MD 175 [facility] 300 [place] [address] Surgeon Neurosurgery 05/02/23 documented as of this encounter
--- OUTSIDE RECORDS SUMMARY | 2024-05-26 07:57 | XMS_ITS | Encounter Summary ---
Author Organization [facility] Address [address] [place] [address] Care Team Providers Care Multiple Knife Edge Trimmer Operator Name Role Phone Riccardo Robledo MD Primary Care Provider Olga Ochoa MD Unavailable Mina Dominguez PA-C Unavailable [phone] Addison Winslow PA-C Unavailable June Denton PA-C Unavailable [phone] Nichole Otto MD Unavailable [phone] Encounter Details Date Type Department Care Team Description 12/26/2020 [facility] Medical Records [address] [place] [address] Abstract, Provider Social History Tobacco Use Types [...] on filedocumented in this encounter Care Teams Multiple Knife Edge Trimmer Operator Relationship Specialty Start Date End Date Riccardo Robledo MD 230 [place] [address] PCP - General Internal Medicine 12/28/19 Olga Ochoa MD 230 [place] [address] Specialist Lung Cancer Belly Roller 03/07/21 Mina Dominguez PA-C 299 [facility] [address] [place] [address] Specialist Thoracic Surgery 04/29/22 Addison Winslow PA-C 175 [facility] 300 [place] [address] Specialist Neurosurgery 05/02/23 June Denton PA-C 175 [facility] 300 [place] [address] Specialist Neurosurgery 05/02/23 Nichole Otto MD 175 [facility] 300 [place] [address] Surgeon Neurosurgery 05/02/23 documented as of this encounter
--- OUTSIDE RECORDS SUMMARY | 2024-05-26 07:57 | XMS_ITS | Encounter Summary ---
Author Organization [facility] Address [address] [place] [address] Care Team Providers Care Splunk Dashboard Developer Name Role Phone Riccardo Robledo MD Primary Care Provider Olga Ochoa MD Unavailable Mina Dominguez PA-C Unavailable [phone] Addison Winslow PA-C Unavailable June Denton PA-C Unavailable [phone] Nichole Otto MD Unavailable [phone] Encounter Details Date Type Department Care Team Description 03/01/2022 Refill Adult Medicine [address] [address] Anastasiya Gary PA-C Social History Tobacco Use Types Packs/Day [...] on filedocumented in this encounter Care Teams Splunk Dashboard Developer Relationship Specialty Start Date End Date Riccardo Robledo MD 230 [place] [address] PCP - General Internal Medicine 12/28/19 Olga Ochoa MD [address] [place] [address] Specialist Lung Cancer Brake Repairer Air 03/07/21 Mina Dominguez PA-C 299 [facility] [address] [place] [phone] Specialist Thoracic Surgery 04/29/22 Addison Winslow PA-C 175 [facility] [address] [place] [address] Specialist Neurosurgery 05/02/23 June Denton PA-C 175 [facility] 300 [place] [address] Specialist Neurosurgery 05/02/23 Nichole Otto MD 175 [facility] 300 [place] [address] Surgeon Neurosurgery 05/02/23 documented as of this encounter
--- OUTSIDE RECORDS SUMMARY | 2024-05-26 07:57 | XMS_ITS | Encounter Summary ---
Author Organization [facility] Address [address] [place] [address] Care Team Providers Care Family Member Caretaker Name Role Phone Riccardo Robledo MD Primary Care Provider [phone] Olga Ochoa MD Unavailable Mina Dominguez PA-C Unavailable Addison Winslow PA-C Unavailable June Denton PA-C Unavailable Nichole Otto MD Unavailable [phone] Encounter Details Date Type Department Care Team Description 11/20/2021 Orders Only [facility] Thoracic Surgery [place] 299 [facility] [address] [place] [phone] Ly Kraus PA-C 299 [facility] [address] [place] [phone] Dysphagia, unspecified type Social History Tobacco Use Types Packs/Day Years [...] suspected to have Coronavirus/COVID-19? No / Unsure 11/14/2021 2:28 PM EDT documented as of this encounter Plan of Treatment Not on file documented as of this encounter Procedures Procedure Name Priority Date/Time Associated Diagnosis Comments CHG RADIOLOGIC EXAM ESOPHAGUS SINGLE CONTRAST STUDY Routine 11/19/2021 Dysphagia, unspecified type documented in this encounter Results * RADIOLOGIC EXAM ESOPHAGUS SINGLE CONTRAST STUDY (11/19/2021) Ly Kraus PA-C RADIOLOGY documented in this encounter Visit Diagnoses Diagnosis Dysphagia, unspecified type documented in this encounter Care Teams Family Member Caretaker Relationship Specialty Start Date End Date Riccardo Robledo MD [address] [place] [address] PCP - General Internal Medicine 12/28/19 Olga Ochoa MD [address] [place] [address] Specialist Lung Cancer Clean Rice Grader And Reel Tender 03/07/21 Mina Dominguez PA-C 299 [facility] [address] [place] [address] Specialist Thoracic Surgery 04/29/22 Addison Winslow PA-C 175 [facility] [address] [place] [address] Specialist Neurosurgery 05/02/23 June Denton PA-C 175 [facility] 300 [place] [address] Specialist Neurosurgery 05/02/23 Nichole Otto MD 175 [facility] 300 [place] [address] Surgeon Neurosurgery 05/02/23 documented as of this encounter
--- OUTSIDE RECORDS SUMMARY | 2024-05-26 07:57 | XMS_ITS | Encounter Summary ---
Author Organization [facility] Address [address] [place] [address] Care Team Providers Care Packer Name Role Phone Riccardo Robledo MD Primary Care Provider [phone] Olga Ochoa MD Unavailable Mina Dominguez PA-C Unavailable Addison Winslow PA-C Unavailable [phone] June Denton PA-C Unavailable [phone] Nichole Otto MD Unavailable [phone] Encounter Details Date Type Department Care Team Description 02/07/2023 Refill Adult Medicine - [address] [address] Logan Romero PA-C [address] [place] [address] Social History Tobacco Use Types Packs/Day Years [...] Telephone Encounter - Mireya Figueroa M.A. - 02/07/2023 3:42 PM EST Medication request (s) pended for review Last appt- 02/05/23 Next appt- 05/08/23 Last appt w/ PCP- 11/18/22 documented in this encounter Plan of Treatment Not on file documented as of this encounter Visit Diagnoses Not on filedocumented in this encounter Care Teams Packer Relationship Specialty Start Date End Date Riccardo Robledo MD [address] [place] [address] PCP - General Internal Medicine 12/28/19 Olga Ochoa MD [address] [place] [address] Specialist Lung Cancer Dry Wall Plasterer 03/07/21 Mina Dominguez PA-C 299 [facility] [address] [place] [address] Specialist Thoracic Surgery 04/29/22 Addison Winslow PA-C 175 [facility] [address] [place] [address] Specialist Neurosurgery 05/02/23 June Denton PA-C 175 [facility] [address] [place] [address] Specialist Neurosurgery 05/02/23 Nichole Otto MD 175 [facility] 300 [place] [address] Surgeon Neurosurgery 05/02/23 documented as of this encounter
--- OUTSIDE RECORDS SUMMARY | 2024-05-26 07:57 | XMS_ITS | Encounter Summary ---
Author Organization [facility] Address [address] [place] [address] Care Team Providers Care Toy Electric Train Repairer Name Role Phone Riccardo Robledo MD Primary Care Provider Olga Ochoa MD Unavailable Mina Dominguez PA-C Unavailable [phone] Addison Winslow PA-C Unavailable [phone] June Denton-Will Unavailable Nichole Otto MD Unavailable [phone] Reason for Visit * Reason Onset Date Comments medication problems 12/06/2020 Encounter Details Date Type Department Care Team Description 12/06/2020 Telephone Adult Medicine - [place] [address] [place], [place] [phone] Riccardo Robledo MD [address] [place], [place] [phone] medication problems Social History Tobacco Use Types [...] Telephone Encounter - Mireya Figueroa M.A. - 12/07/2020 10:39 AM EDT This was sent on 12/01/20, rx received confirmation Scheduled for 4 days from now to be filled per pharmacy 12/11/20 LVM for pt to CB , please advise him message from pharmacy If any questions he can contact the pharmacy or his insurance company * Telephone Encounter - Karen Guido - 12/06/2020 1:46 PM EDT Who is calling? The patient Name of the medication levocetirizine (XYZAL) 5 MG tablet What is the specific problem or interaction? Pt states that this medication is not at the pharm andhe is asking it gets sent over sheng. If the patient is having a problem with taking the med - how long has the problem been going on? N/A documented in this encounter Plan of Treatment Not on file documented as of this encounter Visit Diagnoses Not on filedocumented in this encounter Care Teams Toy Electric Train Repairer Relationship Specialty Start Date End Date Riccardo Robledo MD [address] [place] [address] PCP - General Internal Medicine 12/28/19 Olga Ochoa MD [address] [place] [address] Specialist Lung Cancer Mica Splitter 03/07/21 Mina Dominguez PA-C 299 [facility] 410 [place] [address] Specialist Thoracic Surgery 04/29/22 Addison Winslow PA-C 175 [facility] [address] [place] [address] Specialist Neurosurgery 05/02/23 June Denton PA-C 175 [facility] [address] [place] [address] Specialist Neurosurgery 05/02/23 Nichole Otto MD 175 [facility] [address] [place] [address] Surgeon Neurosurgery 05/02/23 documented as of this encounter
--- OUTSIDE RECORDS SUMMARY | 2024-05-26 07:57 | XMS_ITS | Encounter Summary ---
Author Organization [facility] Address [address] [place] [address] Care Team Providers Care Machine Plate Stacker Name Role Phone Riccardo Robledo MD Primary Care Provider [phone] Olga Ochoa MD Unavailable Mina Dominguez PA-C Unavailable Addison Winslow-C Unavailable June Denton-Will Unavailable Nichole Otto MD Unavailable [phone] Encounter Details Date Type Department Care Team Description 03/22/2022 Refill Adult Medicine - [place] [address] [place], [place] [phone] Riccardo Robledo MD [address] [place], [place] [phone] Social History Tobacco Use Types Packs/Day Years [...] suspected to have Coronavirus/COVID-19? No / Unsure 03/08/2022 1:47 PM EST documented as of this encounter Plan of Treatment Not on file documented as of this encounter Visit Diagnoses Not on filedocumented in this encounter Care Teams Machine Plate Stacker Relationship Specialty Start Date End Date Riccardo Robledo MD [address] [place] [address] PCP - General Internal Medicine 12/28/19 Olga Ochoa MD [address] [place] [address] Specialist Lung Cancer Environmental Health Aide 03/07/21 Mina Dominguez PA-C 299 [facility] 410 [place] [address] Specialist Thoracic Surgery 04/29/22 Addison Winslow PA-C 175 [facility] 300 [place] [address] Specialist Neurosurgery 05/02/23 June Denton PA-C 175 [facility] 300 [place] [address] Specialist Neurosurgery 05/02/23 Nichole Otto MD [address] [address] Surgeon Neurosurgery 05/02/23 documented as of this encounter
--- OUTSIDE RECORDS SUMMARY | 2024-05-26 07:57 | XMS_ITS | Encounter Summary ---
Author Organization [facility] Address [address] [place] [address] Care Team Providers Care Boring Machine Operator Double End Name Role Phone Riccardo Robledo MD Primary Care Provider [phone] Olga Ochoa MD Unavailable Mina Dominguez PA-C Unavailable Addison Winslow-C Unavailable June Denton-Will Unavailable Nichole Otto MD Unavailable [phone] Encounter Details Date Type Department Care Team Description 01/29/2023 Orders Only Adult Medicine - [place] [address] [place] [address] Riccardo Robledo MD [address] [place], [place] [phone] Social History Tobacco Use Types Packs/Day Years [...] on filedocumented in this encounter Care Teams Boring Machine Operator Double End Relationship Specialty Start Date End Date Riccardo Robledo MD [address] [place] [address] PCP - General Internal Medicine 12/28/19 Olga Ochoa MD [address] [place] [address] Specialist Lung Cancer Learning And Development Director 03/07/21 Mina Dominguez PA-C 299 [facility] 410 [place] [address] Specialist Thoracic Surgery 04/29/22 Addison Winslow PA-C 175 [facility] [address] [place] [address] Specialist Neurosurgery 05/02/23 June Denton PA-C 175 [facility] [address] [place] [address] Specialist Neurosurgery 05/02/23 Nichole Otto MD 175 [facility] 300 [place] [address] Surgeon Neurosurgery 05/02/23 documented as of this encounter
--- OUTSIDE RECORDS SUMMARY | 2024-05-26 07:58 | XMS_ITS | Encounter Summary ---
Author Organization [facility] Address [address] [place] [address] Care Team Providers Care Paralegal Legal Secretary Name Role Phone Riccardo Robledo MD Primary Care Provider Olga Ochoa MD Unavailable Mina Dominguez PA-C Unavailable [phone] Addison Winslow PA-C Unavailable [phone] June Denton PA-C Unavailable [phone] Nichole Otto MD Unavailable [phone] Encounter Details Date Type Department Care Team Description 07/12/2020 Linen Worker Report Medical Records [address] [place] [address] Olivier Crews Social History Tobacco Use Types Packs/Day Years [...] have Coronavirus / COVID-19? No / Unsure 07/07/2020 9:55 AM EDT documented as of this encounter Plan of Treatment Not on file documented as of this encounter Visit Diagnoses Not on filedocumented in this encounter Care Teams Paralegal Legal Secretary Relationship Specialty Start Date End Date Riccardo Robledo MD [address] [place] [address] PCP - General Internal Medicine 12/28/19 Olga Ochoa MD [address] [place] [address] Specialist Lung Cancer Java User Interface Developer 03/07/21 Mina Dominguez PA-C 299 [facility] [address] [place] [address] Specialist Thoracic Surgery 04/29/22 Addison Winslow PA-C 175 [facility] 300 [place] [address] Specialist Neurosurgery 05/02/23 June Denton PA-C 175 [facility] 300 [place] [address] Specialist Neurosurgery 05/02/23 Nichole Otto MD 175 [facility] [address] [place] [address] Surgeon Neurosurgery 05/02/23 documented as of this encounter
--- OUTSIDE RECORDS SUMMARY | 2024-05-26 07:58 | XMS_ITS | Encounter Summary ---
Author Organization [facility] Address [address] [place] [address] Care Team Providers Care Sticker Operator Name Role Phone Riccardo Robledo MD Primary Care Provider Olga Ochoa MD Unavailable Mina Dominguez PA-C Unavailable Addison Winslow PA-C Unavailable [phone] June Denton-C Unavailable Nichole Otto MD Unavailable [phone] Reason for Visit * Reason Onset Date Comments er follow up 06/14/2020 Encounter Details Date Type Department Care Team Description 06/14/2020 Telephone Adult Medicine - [place] [address] [place], [place] [phone] Riccardo Robledo MD [address] [place] [address] er follow up Social History Tobacco Use [...] have Coronavirus / COVID-19? No / Unsure 06/14/2020 1:48 PM EDT documented as of this encounter Miscellaneous Notes * Telephone Encounter - Carole Connell M.A. - 06/14/2020 1:48 PM EDT Obtaining notes will give to provider * Telephone Encounter - oHod Rodas - 06/14/2020 9:57 AM EDT Hospital follow up appointment needed Appt today 06/13 [facility] patient was treated at: [facility] Was this only an ER visit or was the patient admitted to the hospital? ER visit only Date of visit if ER visit only: 06/13/20 If patient was admitted what was the date of discharge? N/A Reason/diagnosis for visit or stay: Shoulder pain When was the patient told to follow up? Was visit or stay related to an injury? NO If yes, what was the date of injury (DOI)? N/A If yes, was the injury due to N/A documented in this encounter Plan of Treatment Not on file documented as of this encounter Visit Diagnoses Not on filedocumented in this encounter Care Teams Sticker Operator Relationship Specialty Start Date End Date Riccardo Robledo MD [address] [place] [address] PCP - General Internal Medicine 12/28/19 Olga Ochoa MD [address] [place] [address] Specialist Lung Cancer Brake Coupler Dinkey 03/07/21 Mina Dominguez PA-C 299 [facility] 410 [place] [address] Specialist Thoracic Surgery 04/29/22 Addison Winslow PA-C 175 [facility] [address] [place] [address] Specialist Neurosurgery 05/02/23 June Denton PA-C 175 [facility] [address] [place] [address] Specialist Neurosurgery 05/02/23 Nichole Otto MD 175 [facility] 300 [place] [address] Surgeon Neurosurgery 05/02/23 documented as of this encounter
--- OUTSIDE RECORDS SUMMARY | 2024-05-26 07:58 | XMS_ITS | Encounter Summary ---
Author Organization [facility] Address [address] [place] [address] Care Team Providers Care Deboner Name Role Phone Riccardo Robledo MD Primary Care Provider [phone] Olga Ochoa MD Unavailable Mina Dominguez PA-C Unavailable [phone] Addison Winslow PA-C Unavailable June Denton PA-C Unavailable Nichole Otto MD Unavailable [phone] Encounter Details Date Type Department Care Team Description 08/10/2021 Telephone Adult Medicine - [address] [address] Logan Romero PA-C [address] [place] [address] Social History Tobacco Use Types Packs/Day Years [...] suspected to have Coronavirus/COVID-19? No / Unsure 07/19/2021 1:26 PM EDT documented as of this encounter Miscellaneous Notes * Telephone Encounter - Barbara Guerra - 08/10/2021 2:31 PM EDT corrected * Telephone Encounter - Kenzie Beckett M.A. - 08/10/2021 1:54 PM EDT Pt is a 30 minute pt appt. Please r/s to appropriate booking slot for 30 minutes.thanks documented in this encounter Plan of Treatment Not on file documented as of this encounter Visit Diagnoses Not on filedocumented in this encounter Care Teams Deboner Relationship Specialty Start Date End Date Riccardo Robledo MD [address] [place] [address] PCP - General Internal Medicine 12/28/19 Olga Ochoa MD [address] [place] [address] Specialist Lung Cancer Bacteriology Professor 03/07/21 Mina Dominguez PA-C 299 [facility] 410 [place] [address] Specialist Thoracic Surgery 04/29/22 Addison Winslow PA-C 175 [facility] [address] [place] [address] Specialist Neurosurgery 05/02/23 June Denton PA-C 175 [facility] 300 [place] [address] Specialist Neurosurgery 05/02/23 Nichole Otto MD [address] [address] Surgeon Neurosurgery 05/02/23 documented as of this encounter
--- OUTSIDE RECORDS SUMMARY | 2024-05-26 07:58 | XMS_ITS | Encounter Summary ---
Author Organization [facility] Address [address] [place] [address] Care Team Providers Care Engineering Production Worker Name Role Phone Riccardo Robledo MD Primary Care Provider [phone] Olga Ochoa MD Unavailable Mina Dominguez-C Unavailable Addison Winslow PA-C Unavailable [phone] June Denton PA-C Unavailable Nichole Otto MD Unavailable [phone] Encounter Details Date Type Department Care Team Description 10/31/2022 Thiokol Operator Report Medical Records [address] [place] [address] Johnathan Cerda MD Social History Tobacco Use [...] on filedocumented in this encounter Care Teams Engineering Production Worker Relationship Specialty Start Date End Date Riccardo Robledo, [address] [place] [address] PCP - General Internal Medicine 12/28/19 Olga Ochoa MD [address] [place] [address] Specialist Lung Cancer Supervising Law Enforcement Analyst 03/07/21 Mina Dominguez PA-C 299 [facility] 410 [place] [address] Specialist Thoracic Surgery 04/29/22 Addison Winslow PA-C 175 [facility] [address] [place] [address] Specialist Neurosurgery 05/02/23 June Denton PA-C 175 [facility] 300 [place] [address] Specialist Neurosurgery 05/02/23 Nichole Otto MD 175 [facility] [address] [place] [address] Surgeon Neurosurgery 05/02/23 documented as of this encounter
--- OUTSIDE RECORDS SUMMARY | 2024-05-26 07:58 | XMS_ITS | Encounter Summary ---
Author Organization [facility] Address [address] [place] [address] Care Team Providers Care Occupational Ther Name Role Phone Riccardo Robledo MD Primary Care Provider [phone] Olga Ochoa MD Unavailable Mina Dominguez PA-C Unavailable Addison Winslow PA-C Unavailable [phone] June Denton PA-C Unavailable Nichole Otto MD Unavailable [phone] Encounter Details Date Type Department Care Team Description 11/08/2022 Orders Only Adult Medicine - [address] [address] Logan Romero PA-C [address] [place] [address] Dysphagia, unspecified type Social History Tobacco Use [...] suspected to have Coronavirus/COVID-19? No / Unsure 11/05/2022 8:39 AM EDT documented as of this encounter Plan of Treatment Not on file documented as of this encounter Procedures Procedure Name Priority Date/Time Associated Diagnosis Comments CHG RADIOLOGIC EXAM ESOPHAGUS SINGLE CONTRAST STUDY Routine 11/08/2022 Dysphagia, unspecified type documented in this encounter Results * RADIOLOGIC EXAM ESOPHAGUS SINGLE CONTRAST STUDY (11/08/2022) 11/08/2022 Logan Romero PA-C RADIOLOGY documented in this encounter Visit Diagnoses Diagnosis Dysphagia, unspecified type documented in this encounter Care Teams Occupational Ther Relationship Specialty Start Date End Date Riccardo Robledo MD [address] [place] [address] PCP - General Internal Medicine 12/28/19 Olga Ochoa MD [address] [place] [address] Specialist Lung Cancer Recovery Assistant 03/07/21 Mina Dominguez PA-C 299 [facility] [address] [place] [address] Specialist Thoracic Surgery 04/29/22 Addison Winslow PA-C 175 [facility] [address] [place] [address] Specialist Neurosurgery 05/02/23 June Denton PA-C 175 [facility] [address] [place] [address] Specialist Neurosurgery 05/02/23 Nichole Otto MD [address] [address] Surgeon Neurosurgery 05/02/23 documented as of this encounter
--- OUTSIDE RECORDS SUMMARY | 2024-05-26 07:58 | XMS_ITS | Encounter Summary ---
Author Organization [facility] Address [address] [place] [address] Care Team Providers Care Development Team Lead Name Role Phone Riccardo Robledo MD Primary Care Provider Olga Ochoa MD Unavailable Mina Dominguez PA-C Unavailable [phone] Addison Winslow PA-C Unavailable June Denton PA-C Unavailable [phone] Nichole Otto MD Unavailable [phone] Encounter Details Date Type Department Care Team Description 07/18/2020 Tailer In Report Medical Records [address] [place] [address] Shaye Castro, CHAR Social History Tobacco Use Types Packs/Day Years [...] on filedocumented in this encounter Care Teams Development Team Lead Relationship Specialty Start Date End Date Riccardo Robledo MD [address] [place] [address] PCP - General Internal Medicine 12/28/19 Olga Ochoa MD [address] [place] [address] Specialist Lung Cancer Bleach Liquor Maker 03/07/21 Mina Dominguez PA-C 299 [facility] [address] [place] [address] Specialist Thoracic Surgery 04/29/22 Addison Winslow PA-C 175 [facility] [address] [place] [address] Specialist Neurosurgery 05/02/23 June Denton PA-C 175 [facility] [address] [place] [address] Specialist Neurosurgery 05/02/23 Nichole Otto MD 175 [facility] 300 [place] [address] Surgeon Neurosurgery 05/02/23 documented as of this encounter
--- OUTSIDE RECORDS SUMMARY | 2024-05-26 07:58 | XMS_ITS | Encounter Summary ---
Author Organization [facility] Address [address] [place] [address] Care Team Providers Care Hearing And Speech Assistant Name Role Phone Riccardo Robledo MD Primary Care Provider Olga Ochoa MD Unavailable Mina Dominguez PA-C Unavailable Addison Winslow PA-C Unavailable June Denton-Will Unavailable [phone] Nichole Otto MD Unavailable [phone] Reason for Visit * Reason Onset Date Comments er follow up 10/11/2022 Booked for 11/05 Encounter Details Date Type Department Care Team Description 10/11/2022 Telephone Adult Medicine - [place] [address] [place], [place] [phone] Riccardo Robledo MD [address] [place] [address] er follow up (Booked for 11/05) Social History Tobacco Use Types Packs/Day Years [...] suspected to have Coronavirus/COVID-19? No / Unsure 09/18/2022 9:26 AM EDT documented as of this encounter Miscellaneous Notes * Telephone Encounter - Audrey Hakan - 10/11/2022 8:37 AM EDT *pt is looking for a call to have the lab results read to him from the er visit prior to appointment ER follow-up appointment booked YES 11/05/22 If ER or UC follow up, can be booked with APC or MD. If hospital admission follow up MUST be booked with a physician Appointment time: 8:30AM Provider visit is scheduled with:Mireya Robledo Hospital/ center patient was treated at: [facility] Date of visit: 10/10/22 Was this only an ER/UC visit or was the patient admitted to the hospital? ER visit onlyER visit only If patient was admitted what was the date of discharge? N/A Reason/diagnosis for visit or stay: heart pulmp Was visit or stay related to an injury? NO If yes, what was the date of injury (DOI)? N/A If yes, was the injury due to N/A Tests performed: Lab: YES X-ray: yes EKG: YES Other tests. If yes, what?; N/A documented in this encounter Plan of Treatment Not on file documented as of this encounter Visit Diagnoses Not on filedocumented in this encounter Care Teams Hearing And Speech Assistant Relationship Specialty Start Date End Date Riccardo Robledo, [address] [place] [address] PCP - General Internal Medicine 12/28/19 Olga Ochoa MD [address] [place] [address] Specialist Lung Cancer Gun Club Manager 03/07/21 Mina Dominguez PA-C 299 [facility] [address] [place] [address] Specialist Thoracic Surgery 04/29/22 Addison Winslow PA-C 175 [facility] [address] [place] [address] Specialist Neurosurgery 05/02/23 June Denton PA-C 175 [facility] 300 [place] [address] Specialist Neurosurgery 05/02/23 Nichole Otto MD 175 [facility] 300 [place] [address] Surgeon Neurosurgery 05/02/23 documented as of this encounter
--- OUTSIDE RECORDS SUMMARY | 2024-05-26 07:58 | XMS_ITS | Encounter Summary ---
Author Organization [facility] Address [address] [place] [address] Care Team Providers Care Freezer Assistant Name Role Phone Riccardo Robledo MD Primary Care Provider [phone] Olga Ochoa MD Unavailable Mina Dominguez-C Unavailable [phone] Addison Winslow-C Unavailable [phone] June Denton-Will Unavailable Nichole Otto MD Unavailable [phone] Encounter Details Date Type Department Care Team Description 10/13/2023 Pt. Non Urgent Medic al Question Adult Medicine - [place] [address] [place] [address] Riccardo Robledo MD [address] [place] [address] Social History Tobacco Use Types Packs/Day Years [...] Telephone Encounter - Valerie Edwards L.P.N. - 10/13/2023 11:21 AM EDTFrom: Jv Davila: Will Robledo Sent: 10/13/2023 11:14 AM EDT Subject: Blood pressure DR Swanson my Blood pressure is 127/78 pulse 58 took at 11 11 AM documented in this encounter Plan of Treatment Not on file documented as of this encounter Visit Diagnoses Not on filedocumented in this encounter Care Teams Freezer Assistant Relationship Specialty Start Date End Date Riccardo Robledo MD [address] [place] [address] PCP - General Internal Medicine 12/28/19 Olga Ochoa MD [address] [place] [address] Specialist Lung Cancer Cone Examiner 03/07/21 Mina Dominguez PA-C 299 [facility] [address] [place] [address] Specialist Thoracic Surgery 04/29/22 Addison Winslow PA-C 175 [facility] [address] [place] [address] Specialist Neurosurgery 05/02/23 June Denton PA-C [address] [address] Specialist Neurosurgery 05/02/23 Nichole Otto MD 175 [facility] [address] [place] [address] Surgeon Neurosurgery 05/02/23 documented as of this encounter
--- OUTSIDE RECORDS SUMMARY | 2024-05-26 07:58 | XMS_ITS | Encounter Summary ---
Author Organization [facility] Address [address] [place] [address] Care Team Providers Care Awning Craftsman Name Role Phone Riccardo Robledo MD Primary Care Provider Olga Ochoa MD Unavailable Mina Dominguez PA-C Unavailable Addison Winslow PA-C Unavailable June Denton-Will Unavailable [phone] Nichole Otto MD Unavailable [phone] Reason for Visit * Reason Onset Date Comments medication problems 09/01/2023 Encounter Details Date Type Department Care Team Description 09/01/2023 Telephone Adult Medicine - [place] [address] [place], [place] [id number] Riccardo Robledo MD [address] [place], [place] [phone] medication problems Social History Tobacco Use Types [...] Telephone Encounter - Mireya Figueroa M.A. - 09/01/2023 9:03 AM EDT See telephone encounter from Triage this was discussed. Pt has appt tomorrow scheduled. Can discussfurther at appt. * Telephone Encounter - Gordon Kelton - 09/01/2023 8:33 AM EDT Who is calling? The patient Name of the medication omega-3 acid ethyl esters (LOVAZA) 1 g capsule What is the specific problem or interaction? Pt thinks this has been affecting triglycerides. Pt stopped taking medication and is wondering if there is something else he can take. Pt also wants to find out if he can get labs to check triglycerides. If the patient is having a problem with taking the med - how long has the problem been going on? N/A documented in this encounter Plan of Treatment Not on file documented as of this encounter Visit Diagnoses Not on filedocumented in this encounter Care Teams Awning Craftsman Relationship Specialty Start Date End Date Riccardo Robledo MD [address] [place] [address] PCP - General Internal Medicine 12/28/19 Olga Ochoa MD [address] [place] [address] Specialist Lung Cancer Sanitation Truck Cleaner 03/07/21 Mina Dominguez PA-C 299 [facility] [address] [place] [address] Specialist Thoracic Surgery 04/29/22 Addison Winslow PA-C 175 [facility] [address] [place] [address] Specialist Neurosurgery 05/02/23 June Denton PA-C 175 [facility] [address] [place] [address] Specialist Neurosurgery 05/02/23 Nichole Otto MD [address] [place] [address] Surgeon Neurosurgery 05/02/23 documented as of this encounter
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
--- OUTSIDE RECORDS SUMMARY | 2024-05-26 07:58 | XMS_ITS | Encounter Summary ---
Author Organization [facility] Address [address] [place] [address] Care Team Providers Care Para Professional Name Role Phone Riccardo Robledo MD Primary Care Provider [phone] Olga Ochoa MD Unavailable Mina Dominguez PA-C Unavailable [phone] Addison Winslow PA-C Unavailable June Denton-C Unavailable Nichole Otto MD Unavailable [phone] Reason for Visit * Reason Onset Date Comments Provider Call Back 10/09/2023 Encounter Details Date Type Department Care Team Description 10/09/2023 Telephone [facility] [address] [address] Akin Delacruz MD [address] [address] Provider Call Back Social History Tobacco Use [...] encounter Miscellaneous Notes * Telephone Encounter - Lina Downs - 10/09/2023 4:02 PM EDT Received call from patient, regarding his My chart message to Dr Delacruz, he was very upset that [facility] wants him to come back in for an Injection before ordering his MRI He kept stating that he had a recent Injection, and he has a Tear that needs to be addressed TUNDE, as he stated we could bein a lot of trouble if we don't take care of his problem. He does have an appt with Dr Delacruz on 12/16. Did not give me the chance to offer him any options to see Dr Casas or Carole, as he wants Dawit to take care oaf the issue.He was not very nice, and wanted me to check to see if Dr Delacruz will see him sooner. Please advise, Please call Jv aguilar @ [phone]. Thanks. documented in this encounter Plan of Treatment Not on file documented as of this encounter Visit Diagnoses Not on filedocumented in this encounter Care Teams Para Professional Relationship Specialty Start Date End Date Riccardo Robledo MD [address] [place] [address] PCP - General Internal Medicine 12/28/19 Olga Ochoa MD [address] [place] [address] Specialist Lung Cancer Firearms Instructor 03/07/21 Mina Dominguez PA-C 299 [facility] [address] [place] [address] Specialist Thoracic Surgery 04/29/22 Addison Winslow PA-C 175 [facility] [address] [place] [address] Specialist Neurosurgery 05/02/23 June Denton PA-C 175 [facility] [address] [place] [address] Specialist Neurosurgery 05/02/23 Nichole Otto MD [address] [place] [address] Surgeon Neurosurgery 05/02/23 documented as of this encounter
--- OUTSIDE RECORDS SUMMARY | 2024-05-26 07:58 | XMS_ITS | Encounter Summary ---
Author Organization [facility] Address [address] [place] [address] Care Team Providers Care Bulk Delivery Driver Name Role Phone Riccardo Robledo MD Primary Care Provider [phone] Olga Ochoa MD Unavailable Mina Dominguez PA-C Unavailable Addison Winslow PA-C Unavailable June Denton-C Unavailable Nichole Otto MD Unavailable [phone] Reason for Visit * Reason Onset Date Comments Orders Call 10/06/2023 Encounter Details Date Type Department Care Team Description 10/06/2023 Telephone Adult Medicine - [place] [address] [place], [place] [phone] Riccardo Robledo MD [address] [place], [place] [phone] Orders Call Social History Tobacco Use Types Packs/Day Years [...] * Telephone Encounter - Carole Maria - 10/06/2023 3:04 PM EDT Pt called and would like to have an MRI ordered for his leftshoulder/arm pain where pt had surgery - the previous xray and cat scan did not show anything documented in this encounter Plan of Treatment Not on file documented as of this encounter Visit Diagnoses Not on filedocumented in this encounter Care Teams Bulk Delivery Driver Relationship Specialty Start Date End Date Riccardo Robledo MD [address] [place] [address] PCP - General Internal Medicine 12/28/19 Olga Ochoa MD [address] [place] [address] Specialist Lung Cancer Rn Cvor 03/07/21 Mina Dominguez PA-C 299 [facility] [address] [place] [address] Specialist Thoracic Surgery 04/29/22 Addison Winslow PA-C 175 [facility] [address] [place] [address] Specialist Neurosurgery 05/02/23 June Denton PA-C 175 [facility] [address] [place] [address] Specialist Neurosurgery 05/02/23 Nichole Otto MD 175 [facility] [address] [place] [address] Surgeon Neurosurgery 05/02/23 documented as of this encounter
--- OUTSIDE RECORDS SUMMARY | 2024-05-26 07:58 | XMS_ITS | Encounter Summary ---
Author Organization [facility] Address [address] [place] [address] Care Team Providers Care Film Reproducer Name Role Phone Riccardo Robledo MD Primary Care Provider Olga Ochoa MD Unavailable Mina DominguezC Unavailable [phone] Addison Winslow PA-C Unavailable June Denton PA-C Unavailable [phone] Nichole Otto MD Unavailable [phone] Encounter Details Date Type Department Care Team Description 10/11/2022 Orders Only Medical Records [address] [place] [address] Abstract, Provider Social History Tobacco Use Types [...] Associated Diagnosis Comments OUTSIDE PLAIN FILM Routine 10/10/2022 documented in this encounter Results * OUTSIDE PLAIN FILM (10/10/2022) Provider Abstract RADIOLOGY documented in this encounter Visit Diagnoses Not on filedocumented in this encounter Care Teams Film Reproducer Relationship Specialty Start Date End Date Riccardo Robledo MD [address] [place] [address] PCP - General Internal Medicine 12/28/19 Olga Ochoa MD [address] [place] [address] Specialist Lung Cancer Bus Driver 03/07/21 Mina Dominguez PA-C 299 [facility] [address] [place] [address] Specialist Thoracic Surgery 04/29/22 Addison Winslow PA-C 175 [facility] [address] [place] [address] Specialist Neurosurgery 05/02/23 June Denton PA-C 175 [facility] [address] [place] [address] Specialist Neurosurgery 05/02/23 Nichole Otto MD 175 [facility] [address] [place] [address] Surgeon Neurosurgery 05/02/23 documented as of this encounter
--- OUTSIDE RECORDS SUMMARY | 2024-05-26 07:58 | XMS_ITS | Encounter Summary ---
Author Organization [facility] Address [address] [place] [address] Care Team Providers Care Junior Systems Administrator Name Role Phone Riccardo Robledo MD Primary Care Provider Olga Ochoa MD Unavailable Mina Dominguez PA-C Unavailable [phone] Addison Winslow PA-C Unavailable [phone] June Denton PA-C Unavailable [phone] Nichole Otto MD Unavailable [phone] Encounter Details Date Type Department Care Team Description 08/18/2020 Digital Ad Trafficker Report Medical Records [address] [place] [address] Kemar Kemp Social History Tobacco Use Types Packs/Day Years [...] have Coronavirus / COVID-19? No / Unsure 08/08/2020 10:22 AM EDT documented as of this encounter Plan of Treatment Not on file documented as of this encounter Visit Diagnoses Not on filedocumented in this encounter Care Teams Junior Systems Administrator Relationship Specialty Start Date End Date Riccardo Robledo MD [address] [place] [address] PCP - General Internal Medicine 12/28/19 Olga Ochoa MD [address] [place] [address] Specialist Lung Cancer Lens Fabricating Machine Tender 03/07/21 Mina Dominguez PA-C 299 [facility] [address] [place] [address] Specialist Thoracic Surgery 04/29/22 Addison Winslow PA-C 175 [facility] [address] [place] [address] Specialist Neurosurgery 05/02/23 June Denton PA-C 175 [facility] [address] [place] [address] Specialist Neurosurgery 05/02/23 Nichole Otto MD 175 [facility] [address] [place] [address] Surgeon Neurosurgery 05/02/23 documented as of this encounter
--- OUTSIDE RECORDS SUMMARY | 2024-05-26 07:58 | XMS_ITS | Encounter Summary ---
Author Organization [facility] Address [address] [place] [address] Care Team Providers Care Audit Reviewer Name Role Phone Riccardo Robledo MD Primary Care Provider [phone] Olga Ochoa MD Unavailable Mina Dominguez-C Unavailable [phone] Addison Winslow PACecileC Unavailable June Denton PA-C Unavailable Nichole Otto MD Unavailable [phone] Encounter Details Date Type Department Care Team Description 11/06/2023 SCAN [facility] Medical [facility] 175 [facility] [address] [place] [address] Akin Delacruz MD 175 [facility] [address] [place], [place] [phone] Social History Tobacco Use Types Packs/Day Years [...] on filedocumented in this encounter Care Teams Audit Reviewer Relationship Specialty Start Date End Date Riccardo Robledo MD [address] [place] [address] PCP - General Internal Medicine 12/28/19 Olga Ochoa MD [address] [place] [address] Specialist Lung Cancer Radiology Scheduler 03/07/21 Mina Dominguez PA-C 299 [facility] [address] [place] [address] Specialist Thoracic Surgery 04/29/22 Addison Winslow PA-C 175 [facility] [address] [place] [address] Specialist Neurosurgery 05/02/23 June Denton PA-C 175 [facility] [address] [place] [address] Specialist Neurosurgery 05/02/23 Nichole Otto MD 175 [facility] [address] [place] [address] Surgeon Neurosurgery 05/02/23 documented as of this encounter
--- OUTSIDE RECORDS SUMMARY | 2024-05-26 07:58 | XMS_ITS | Encounter Summary ---
Author Organization [facility] Address [address] [place] [address] Care Team Providers Care Ground Crewman Name Role Phone Riccardo Robledo MD Primary Care Provider [phone] Olga Ochoa MD Unavailable Mina Dominguez-C Unavailable Addison Winslow-Will Unavailable [phone] June Denton PA-C Unavailable [phone] Nichole Otto MD Unavailable [phone] Encounter Details Date Type Department Care Team Description 10/09/2023 Pt. Non Urgent Medic al Question Adult Medicine - [place] [address] [place] [address] Riccardo Robledo MD [address] [place] [address] Social History Tobacco Use Types Packs/Day Years [...] Telephone Encounter - Carole Connell M.A. - 10/09/2023 4:33 PM EDTFrom: Jv Monroy To: Will Robledo Sent: 10/09/2023 4:22 PM EDT Subject: Complaint DR Swanson I need you to call me as soon as possible I must talk to you today this is Jv call me at [phone] documented in this encounter Plan of Treatment Not on file documented as of this encounter Visit Diagnoses Not on filedocumented in this encounter Care Teams Ground Crewman Relationship Specialty Start Date End Date Riccardo Robledo MD [address] [place] [address] PCP - General Internal Medicine 12/28/19 Olga Ochoa MD [address] [place] [address] Specialist Lung Cancer Bite Block Maker 03/07/21 Mina Dominguez PA-C [address] [phone] Specialist Thoracic Surgery 04/29/22 Addison Winslow PA-C 175 [facility] [address] [place] [address] Specialist Neurosurgery 05/02/23 June Denton PA-C [address] [address] Specialist Neurosurgery 05/02/23 Nichole Otto MD [address] [address] Surgeon Neurosurgery 05/02/23 documented as of this encounter
--- OUTSIDE RECORDS SUMMARY | 2024-05-26 07:58 | XMS_ITS | Encounter Summary ---
Author Organization [facility] Address [address] [place] [address] Care Team Providers Care Thermostat Maker Name Role Phone Riccardo Robledo MD Primary Care Provider Olga Ochoa MD Unavailable Mina Dominguez PA-C Unavailable Addison Winslow PA-C Unavailable [phone] June Denton-C Unavailable Nichole Otto MD Unavailable [phone] Reason for Visit * Reason Onset Date Comments er follow up 12/10/2022 Encounter Details Date Type Department Care Team Description 12/10/2022 Telephone Adult Medicine - [place] [address] [place], [place] [phone] Riccardo Robledo MD [address] [place] [address] er follow up Social History Tobacco Use [...] suspected to have Coronavirus/COVID-19? No / Unsure 12/03/2022 9:38 AM EDT documented as of this encounter Miscellaneous Notes * Telephone Encounter - Carole Connell M.A. - 12/10/2022 10:00 AM EDT Notes obtained and given to provider * Telephone Encounter - Audrey Mcclendon - 12/10/2022 9:36 AM EDT ER follow-up appointment booked YES 02/05/23 If ER or UC follow up, can be booked with APC or MD. If hospital admission follow up MUST be booked with a physician Appointment time: 9:45AM [facility] patient was treated at: [facility] Date of visit: 12/09/22 Was this only an ER/UC visit or was the patient admitted to the hospital? ER visit onlyER visit only If patient was admitted what was the date of discharge? N/A Reason/diagnosis for visit or stay: shoulder and chest pain Was visit or stay related to an injury? NO If yes, what was the date of injury (DOI)? N/A If yes, was the injury due to N/A Tests performed: Lab: YES X-ray: YES EKG: YES Other tests. If yes, what?; N/A documented in this encounter Plan of Treatment Not on file documented as of this encounter Visit Diagnoses Not on filedocumented in this encounter Care Teams Thermostat Maker Relationship Specialty Start Date End Date Riccardo Robledo MD [address] [place] [address] PCP - General Internal Medicine 12/28/19 Olga Ochoa MD [address] [place] [address] Specialist Lung Cancer Government Clerk 03/07/21 Mina Dominguez PA-C [address] [phone] Specialist Thoracic Surgery 04/29/22 Addison Winslow PA-C 175 [facility] 300 [place] [address] Specialist Neurosurgery 05/02/23 June Denton PA-C [address] [address] Specialist Neurosurgery 05/02/23 Nichole Otto MD 175 [facility] 300 [place] [address] Surgeon Neurosurgery 05/02/23 documented as of this encounter
--- OUTSIDE RECORDS SUMMARY | 2024-05-26 07:58 | XMS_ITS | Encounter Summary ---
Author Organization [facility] Address [address] [place] [address] Care Team Providers Care Core Analysis Operator Name Role Phone Riccardo Robledo MD Primary Care Provider [phone] Olga Ochoa MD Unavailable Mina Dominguez-C Unavailable [phone] Addison Winslow PACecileC Unavailable June Denton PA-C Unavailable [phone] Nichole Otto MD Unavailable [phone] Encounter Details Date Type Department Care Team Description 09/19/[address] [facility] Medical [facility] 175 [facility] 160 [place] [address] Akin Delacruz MD 175 [facility] [address] [place], [place] [address] Social History Tobacco Use Types Packs/Day Years [...] on filedocumented in this encounter Care Teams Core Analysis Operator Relationship Specialty Start Date End Date Riccardo Robledo MD 230 [place] [address] PCP - General Internal Medicine 12/28/19 Olga Ochoa MD [address] [place] [address] Specialist Lung Cancer Oleomargarine Maker 03/07/21 Mina Dominguez PA-C 299 [facility] 410 [place] [address] Specialist Thoracic Surgery 04/29/22 Addison Winslow PA-C 175 [facility] [address] [place] [address] Specialist Neurosurgery 05/02/23 June Denton PA-C 175 [facility] 300 [place] [address] Specialist Neurosurgery 05/02/23 Nichole Otto MD 175 [facility] 300 [place] [address] Surgeon Neurosurgery 05/02/23 documented as of this encounter
--- OUTSIDE RECORDS SUMMARY | 2024-05-26 07:58 | XMS_ITS | Encounter Summary ---
Author Organization [facility] Address [address] [place] [address] Care Team Providers Care Shellfish Farming Supervisor Name Role Phone Riccardo Robledo MD Primary Care Provider Olga Ochoa MD Unavailable Mina Dominguez PA-C Unavailable Addison Winslow PA-C Unavailable June Denton-Will Unavailable Nichole Otto MD Unavailable [phone] Reason for Visit * Reason Onset Date Comments er follow up 09/07/2020 [facility] 09/07/20 Encounter Details Date Type Department Care Team Description 09/07/2020 Telephone Adult Medicine - [place] [address] [place], [place] [phone] Riccardo Robledo MD [address] [place], [place] [phone] er follow up ([facility] 09/07/20) Social History Tobacco Use Types Packs/Day Years [...] Telephone Encounter - Ree Beatty M.A. - 09/08/2020 11:40 AM EDT Notes obtained and placed on Provider's desk. * Telephone Encounter - Audrey Cerda - 09/07/2020 4:40 PM EDT ER follow-up appointment booked YES 09/20/20 If ER or UC follow up, can be booked with APC or MD. If hospital admission follow up MUST be booked with a physician Appointment time: 10:30AM Provider visit is scheduled with: [facility] patient was treated at: [facility] Date of visit: 09/07/20 Was this only an ER/UC visit or was the patient admitted to the hospital? ER visit onlyER visit only If patient was admitted what was the date of discharge? N/A Reason/diagnosis for visit or stay: rt side pain on right leg Was visit or stay related to an injury? NO If yes, what was the date of injury (DOI)? N/A If yes, was the injury due to N/A Tests performed: Lab: YES X-ray: YES EKG: NO Other tests. If yes, what?; U/s documented in this encounter Plan of Treatment Not on file documented as of this encounter Visit Diagnoses Not on filedocumented in this encounter Care Teams Shellfish Farming Supervisor Relationship Specialty Start Date End Date Riccardo Robledo MD [address] [place] [address] PCP - General Internal Medicine 12/28/19 Olga Ochoa MD [address] [place] [address] Specialist Lung Cancer Guidance Services Coordinator 03/07/21 Mina Dominguez PA-C 299 [facility] [address] [place] [address] Specialist Thoracic Surgery 04/29/22 Addison Winslow PA-C 175 [facility] [address] [place] [address] Specialist Neurosurgery 05/02/23 June Denton PA-C 175 [facility] [address] [place] [address] Specialist Neurosurgery 05/02/23 Nichole Otto MD 175 [facility] [address] [place] [address] Surgeon Neurosurgery 05/02/23 documented as of this encounter
--- OUTSIDE RECORDS SUMMARY | 2024-05-26 07:58 | XMS_ITS | Clinical Summary ---
Author Organization [facility] Address [address] [place] [address] Care Team Providers Care Pumper Gager Apprentice Name Role Phone Mireya Robledo MD Primary [...] age to complete this topic Care Teams Pumper Gager Apprentice Relationship Specialty Start Date End Date Mireya Robledo MD PCP - General Internal Medicine 05/26/20
--- OUTSIDE RECORDS SUMMARY | 2024-05-26 07:58 | XMS_ITS | Encounter Summary ---
Author Organization [facility] Address [address] [place] [address] Care Team Providers Care Javascript Engineer Name Role Phone iRccardo Robledo MD Primary Care Provider Olga Ochoa MD Unavailable Mina Dominguez PA-C Unavailable [phone] Addison Winslow PA-C Unavailable June Denton-C Unavailable Nichole Otto MD Unavailable [phone] Reason for Visit * Reason Comments E-prescribe Rx Request Encounter Details Date Type Department Care Team Description 10/04/2020 Refill Adult Medicine [address] [address] Lupe Betancourt MD E-prescribe Rx Request Social History Tobacco Use [...] Telephone Encounter - Pallavi Finley M.A. - 10/04/2020 1:12 PM EDT Shilo - 09/20/20 Nov - 11/21/20 * Telephone Encounter - Hood Rodas - 10/04/2020 10:48 AM EDT Patient would like script to be: E-PRESCRIBED/FAXED TO PHARMACY WHEN WAS THE PATIENT'S LAST APPOINTMENT IN ADULT MEDICINE? 09/20/20 WHEN WAS THE LAST TIME THE PATIENT SAW THEIR PCP? 08/08/20 Does patient have an upcoming appointment? Yes 11/21/20 (THE MEDICATION REQUESTED IS ON THE MED LIST ABOVE) All of the medications requested were on the CURRENT MEDS list Did you check the Pharmacy information above?: YES Patient wants: 30 -day supply Is this a mail order prescription request ? NO If the refill is from a FAXED refill request what is the RX # listed on the fax? N/A Patients current insurance carrier is: [place] / [place] / Product Type: MEDICARE [id number] documented in this encounter Plan of Treatment Not on file documented as of this encounter Visit Diagnoses Not on filedocumented in this encounter Care Teams Javascript Engineer Relationship Specialty Start Date End Date Riccardo Robledo MD [address] [place] [address] PCP - General Internal Medicine 12/28/19 Olga Ochoa MD [address] [place] [address] Specialist Lung Cancer [employer] 03/07/21 Mina Dominguez PA-C 299 [facility] [address] [place] [address] Specialist Thoracic Surgery 04/29/22 Addison Winslow PA-C 175 [facility] [address] [place] [address] Specialist Neurosurgery 05/02/23 June Denton PA-C 175 [facility] [address] [place] [address] Specialist Neurosurgery 05/02/23 Nichole Otto MD 175 [place] [address] [place] [address] Surgeon Neurosurgery 05/02/23 documented as of this encounter
--- OUTSIDE RECORDS SUMMARY | 2024-05-26 07:58 | XMS_ITS | Encounter Summary ---
Author Organization [facility] Address [address] [place] [address] Care Team Providers Care Mechanical Design Drafter Name Role Phone Riccardo Robledo MD Primary Care Provider Olga cOhoa MD Unavailable Mina Dominguez PA-C Unavailable [phone] Addison Winslow PA-C Unavailable June Denton-Will Unavailable [phone] Nichole Otto MD Unavailable [phone] Reason for Visit * Reason Onset Date Comments refill request 06/30/2020 Encounter Details Date Type Department Care Team Description 06/30/2020 Refill Adult Medicine - [place] [address] [place], [place] [phone] Riccardo Robledo MD [address] [place] [address] refill request Social History Tobacco Use Types Packs/Day Years [...] encounter Miscellaneous Notes * Telephone Encounter - June Becerril - 06/30/2020 3:18 PM EDT Pharmacy is requesting a 90 day supply [facility] documented in this encounter Plan of Treatment Not on file documented as of this encounter Visit Diagnoses Not on filedocumented in this encounter Care Teams Mechanical Design Drafter Relationship Specialty Start Date End Date Riccardo Robledo MD [address] [place] [address] PCP - General Internal Medicine 12/28/19 Olga Ochoa MD [address] [place] [address] Specialist Lung Cancer Grey Goods Marker 03/07/21 Mina Dominguez PA-C 299 [facility] [address] [place] [address] Specialist Thoracic Surgery 04/29/22 Addison Winslow PA-C 175 [facility] [address] [place] [address] Specialist Neurosurgery 05/02/23 June Denton PA-C 175 [facility] [address] [place] [address] Specialist Neurosurgery 05/02/23 Nichole Otto MD 175 [facility] [address] [place] [address] Surgeon Neurosurgery 05/02/23 documented as of this encounter
--- OUTSIDE RECORDS SUMMARY | 2024-05-26 07:58 | XMS_ITS | Encounter Summary ---
Author Organization [facility] Address [address] [place] [address] Care Team Providers Care Senior Marketing Analyst Name Role Phone Riccardo Robledo MD Primary Care Provider Olga Ochoa MD Unavailable Mina Dominguez PA-C Unavailable Addison Winslow PA-C Unavailable June Denton-Will Unavailable Nichole Otto MD Unavailable [phone] Reason for Visit * Reason Onset Date Comments refill request 06/23/2020 Encounter Details Date Type Department Care Team Description 06/23/2020 Refill Adult Medicine - [place] [address] [place], [place] [phone] Riccardo Robledo MD [address] [place] [address] refill request Social History Tobacco Use Types [...] encounter Miscellaneous Notes * Telephone Encounter - Rain Kumari - 06/23/2020 9:40 AM EDT Patient would like script to be: E-PRESCRIBED/FAXED TO PHARMACY WHEN WAS THE PATIENT'S LAST APPOINTMENT IN ADULT MEDICINE? 06/14/20 WHEN WAS THE LAST TIME THE PATIENT SAW THEIR PCP? Same as above Does patient have an upcoming appointment? Yes 07/07/20 (THE MEDICATION REQUESTED IS ON THE MED [...] insurance carrier is: [place] / Plan: MEDICARE-[employer]Roll / Product Type: MEDICARE [id number] documented in this encounter Plan of Treatment Not on file documented as of this encounter Visit Diagnoses Not on filedocumented in this encounter Care Teams Senior Marketing Analyst Relationship Specialty Start Date End Date Riccardo Robledo MD [address] [place] [address] PCP - General Internal Medicine 12/28/19 Olga Ochoa MD [address] [place] [address] Specialist Lung Cancer First Aid Attendant 03/07/21 Mina Dominguez PA-C 299 [facility] [address] [place] [address] Specialist Thoracic Surgery 04/29/22 Addison Winslow PA-C 175 [facility] [address] [place] [address] Specialist Neurosurgery 05/02/23 June Denton PA-C 175 [facility] [address] [place], [place] [address] Specialist Neurosurgery 05/02/23 Nichole Otto MD 175 [facility] [address] [place], [place] [address] Surgeon Neurosurgery 05/02/23 documented as of this encounter
--- OUTSIDE RECORDS SUMMARY | 2024-05-26 07:58 | XMS_ITS | Encounter Summary ---
Author Organization [facility] Address [address] [place] [address] Care Team Providers Care Splitter Tender Name Role Phone Riccardo Robledo MD Primary Care Provider Olga Ochoa MD Unavailable Mina Dominguez PA-C Unavailable [phone] Addison Winslow PA-C Unavailable June Denton PA-C Unavailable [phone] Nichole Otto MD Unavailable [phone] Encounter Details Date Type Department Care Team Description 10/24/2022 Orders Only Medical Records [address] [place] [address] Abstract, Provider Social History Tobacco Use Types [...] Name Priority Date/Time Associated Diagnosis Comments OUTSIDE VASCULAR STUDY Routine 08/01/2022 documented in this encounter Results * OUTSIDE VASCULAR STUDY (08/01/2022) Provider Abstract CARDIOLOGY documented in this encounter Visit Diagnoses Not on filedocumented in this encounter Care Teams Splitter Tender Relationship Specialty Start Date End Date Riccardo Robledo MD [address] [place] [address] PCP - General Internal Medicine 12/28/19 Olga Ochoa MD [address] [place] [address] Specialist Lung Cancer Cinema Operator 03/07/21 Mina Dominguez PA-C 299 [facility] [address] [place] [address] Specialist Thoracic Surgery 04/29/22 Addison Winslow PA-C 175 [facility] [address] [place] [address] Specialist Neurosurgery 05/02/23 June Denton PA-C 175 [facility] [address] [place] [address] Specialist Neurosurgery 05/02/23 Nichole Otto MD 175 [facility] [address] [place] [address] Surgeon Neurosurgery 05/02/23 documented as of this encounter
--- OUTSIDE RECORDS SUMMARY | 2024-05-26 07:58 | XMS_ITS | Encounter Summary ---
Author Organization [facility] Address [address] [place] [address] Care Team Providers Care Driver Utility Worker Name Role Phone Riccardo Robledo MD Primary Care Provider [phone] Olga Ochoa MD Unavailable Mina Dominguez-C Unavailable Addison Winslow PA-C Unavailable June Denton PA-C Unavailable Nichole Otto MD Unavailable [phone] Encounter Details Date Type Department Care Team Description 09/12/2020 Gas Welder Apprentice Report Medical Records [address] [place] [address] Richie Alba MD, PHD Social History Tobacco [...] on filedocumented in this encounter Care Teams Driver Utility Worker Relationship Specialty Start Date End Date Riccardo Robledo, [address] [place] [address] PCP - General Internal Medicine 12/28/19 Olga Ochoa MD [address] [place] [address] Specialist Lung Cancer Rental Sales Representative 03/07/21 Mina Dominguez PA-C 299 [facility] [address] [place] [address] Specialist Thoracic Surgery 04/29/22 Addison Winslow PA-C 175 [facility] [address] [place] [address] Specialist Neurosurgery 05/02/23 June Denton PA-C 175 [facility] [address] [place] [address] Specialist Neurosurgery 05/02/23 Nichole Otto MD 175 [facility] [address] [place] [address] Surgeon Neurosurgery 05/02/23 documented as of this encounter
--- OUTSIDE RECORDS SUMMARY | 2024-05-26 07:58 | XMS_ITS | Encounter Summary ---
Author Organization [facility] Address [address] [place] [address] Care Team Providers Care Associate Software Development Engineer Name Role Phone Riccardo Robledo MD Primary Care Provider [phone] Olga Ochoa MD Unavailable Mina Dominguez-C Unavailable Addison Winslow-Will Unavailable June Denton PA-C Unavailable Nichole Otto MD Unavailable [phone] Encounter Details Date Type Department Care Team Description 10/28/2023 Pt. Non Urgent Medic al Question Adult Medicine - [place] [address] [place] [address] Riccardo Robledo MD [address] [place] [address] Social History Tobacco Use Types Packs/Day Years [...] Telephone Encounter - Mireya Figueroa M.A. - 10/29/2023 8:30 AM EDTFrom: Jv Monroy To: Will Robledo Sent: 10/28/2023 5:17 PM EDT Subject: Medication What is going on with my mom pain medication did you did the prior off because she doesn't have anything to take tomorrow have someone call me or send me a message Of what going on documented in this encounter Plan of Treatment Not on file documented as of this encounter Visit Diagnoses Not on filedocumented in this encounter Care Teams Associate Software Development Engineer Relationship Specialty Start Date End Date Riccardo Robledo MD [address] [place] [address] PCP - General Internal Medicine 12/28/19 Olga Ochoa MD [address] [place] [address] Specialist Lung Cancer Ballet Dancer 03/07/21 Mina Dominguez PA-C 299 [facility] [address] [place] [address] Specialist Thoracic Surgery 04/29/22 Addison Winslow PA-C 175 [facility] [address] [place] [address] Specialist Neurosurgery 05/02/23 June Denton PA-C [address] [facility] [address] [place] [address] Specialist Neurosurgery 05/02/23 Nichole Otto MD 175 [facility] [address] [place] [address] Surgeon Neurosurgery 05/02/23 documented as of this encounter
--- OUTSIDE RECORDS SUMMARY | 2024-05-26 07:58 | XMS_ITS | Encounter Summary ---
Author Organization [facility] Address [address] [place] [address] Care Team Providers Care Manager Storage Name Role Phone Riccardo Robledo MD Primary Care Provider [phone] Olga Ochoa MD Unavailable Mina Dominguez-C Unavailable Addison Winslow PA-C Unavailable [phone] June Denton PA-C Unavailable [phone] Nichole Otto MD Unavailable [phone] Encounter Details Date Type Department Care Team Description 10/09/2023 Pt. Non Urgent Medical Question [facility] 175 [facility] [address] [place] [address] Akin Delacruz MD 175 [facility] [address] [place], [place] [phone] Social History Tobacco Use Types Packs/Day Years [...] filedocumented in this encounter Care Teams Manager Storage Relationship Specialty Start Date End Date Riccardo Robledo MD [address] [place] [address] PCP - General Internal Medicine 12/28/19 Olga Ochoa MD [address] [place] [address] Specialist Lung Cancer Marketing Content Specialist 03/07/21 Mina Dominguez PA-C 299 [facility] [address] [place] [address] Specialist Thoracic Surgery 04/29/22 Addison Winslow PA-C 175 [facility] [address] [place] [address] Specialist Neurosurgery 05/02/23 June Denton PA-C 175 [facility] [address] [place] [address] Specialist Neurosurgery 05/02/23 Nichole Otto MD 175 [facility] [address] [place] [address] Surgeon Neurosurgery 05/02/23 documented as of this encounter
--- OUTSIDE RECORDS SUMMARY | 2024-05-26 07:58 | XMS_ITS | Encounter Summary ---
Author Organization [facility] Address [address] [place] [address] Care Team Providers Care Director Of Ancillary Services Name Role Phone Riccardo Robledo MD Primary Care Provider [phone] Olga Ochoa MD Unavailable Mina Dominguez PA-C Unavailable Addison Winslow PA-C Unavailable June Denton PA-C Unavailable Nichole Otto MD Unavailable [phone] Encounter Details Date Type Department Care Team Description 11/18/2022 Pt. Non Urgent Medic al Question Adult Medicine - [address] [address] Logan Romero PA-C [address] [place] [address] Social History Tobacco Use Types Packs/Day Years [...] suspected to have Coronavirus/COVID-19? No / Unsure 11/18/2022 9:43 AM EDT documented as of this encounter Miscellaneous Notes * Telephone Encounter - Valerie Edwards L.P.N. - 11/18/2022 12:30 PM EDTFrom: Jv Monroy To: Danisha Romero Sent: 11/18/2022 12:28 PM EDT Subject: EKG Byron could you please tell me about my EKG that was done today at your office before my surgery on my foot because it said Borderline T Abnormalities anterior leads T flat or neg V2 V4 you know that they did a ECO cardigan this year and last year and everything was normal could you please look at my EKG DR Swanson said that it was normal but i f it was normal then why it says what it says on my EKG tanmay worry I ask you please to look at it and let me know if I have to worry about my EKG result call me or text me documented in this encounter Plan of Treatment Not on file documented as of this encounter Visit Diagnoses Not on filedocumented in this encounter Care Teams Director Of Ancillary Services Relationship Specialty Start Date End Date Riccardo Robledo MD [address] [place] [address] PCP - General Internal Medicine 12/28/19 Olga Ochoa MD [address] [place] [address] Specialist Lung Cancer Manager Transit 03/07/21 Mina Dominguez PA-C 299 [facility] [address] [place] [address] Specialist Thoracic Surgery 04/29/22 Addison Winslow PA-C 175 [facility] [address] [place] [address] Specialist Neurosurgery 05/02/23 June Denton PA-C 175 [facility] [address] [place] [address] Specialist Neurosurgery 05/02/23 Nichole Otto MD [address] [place] [address] Surgeon Neurosurgery 05/02/23 documented as of this encounter
--- OUTSIDE RECORDS SUMMARY | 2024-05-26 07:58 | XMS_ITS | Encounter Summary ---
Author Organization [facility] Address [address] [place] [address] Care Team Providers Care Director Media Name Role Phone Riccardo Robledo MD Primary Care Provider [phone] Olga Ochoa MD Unavailable Mina Dominguez-C Unavailable Addison Winslow-C Unavailable [phone] June Denton-Will Unavailable [phone] Nichole Otto MD Unavailable [phone] Encounter Details Date Type Department Care Team Description 09/07/2021 Pt. Non Urgent Medic al Question Adult Medicine - [place] [address] [place] [address] Riccardo Robledo MD [address] [place] [address] Social History Tobacco Use Types Packs/Day Years [...] suspected to have Coronavirus/COVID-19? No / Unsure 09/04/2021 7:51 AM EDT documented as of this encounter Miscellaneous Notes * Telephone Encounter - Mireya Figueroa M.A. - 09/07/2021 9:27 AM EDTFrom: Jv Monroy To: Will Robledo Sent: 09/07/2021 7:26 AM EDT Subject: My test results from [facility] cardiology Do you have my test results of my ultrasound documented in this encounter Plan of Treatment Not on file documented as of this encounter Visit Diagnoses Not on filedocumented in this encounter Care Teams Director Media Relationship Specialty Start Date End Date Riccardo Robledo MD [address] [place] [address] PCP - General Internal Medicine 12/28/19 Olga Ochoa MD [address] [place] [address] Specialist Lung Cancer Manager Web Application 03/07/21 Mina Dominguez PA-C 299 [facility] [address] [place] [address] Specialist Thoracic Surgery 04/29/22 Addison Winslow PA-C 175 [facility] [address] [place] [address] Specialist Neurosurgery 05/02/23 June Denton PA-C 175 [facility] [address] [place] [address] Specialist Neurosurgery 05/02/23 Nichole Otto MD 175 [facility] [address] [place] [address] Surgeon Neurosurgery 05/02/23 documented as of this encounter
--- OUTSIDE RECORDS SUMMARY | 2024-05-26 07:58 | XMS_ITS | Encounter Summary ---
Author Organization [facility] Address [address] [place] [address] Care Team Providers Care Group Social Worker Name Role Phone Riccardo Robledo MD Primary Care Provider Olga Ochoa MD Unavailable Mina Dominguez PA-C Unavailable [phone] Addison Winslow PA-C Unavailable June Denton PA-C Unavailable [phone] Nichole Otto MD Unavailable [phone] Encounter Details Date Type Department Care Team Description 10/16/2020 Business Doc Medical Records [address] [place] [address] Abstract, Provider Social History Tobacco Use Types [...] on filedocumented in this encounter Care Teams Group Social Worker Relationship Specialty Start Date End Date Riccardo Robledo MD [address] [place] [address] PCP - General Internal Medicine 12/28/19 Olga Ochoa MD [address] [place] [address] Specialist Lung Cancer Childcare Worker 03/07/21 Mina Dominguez PA-C 299 [facility] [address] [place] [address] Specialist Thoracic Surgery 04/29/22 Addison Winslow PA-C 175 [facility] [address] [place] [address] Specialist Neurosurgery 05/02/23 June Denton PA-C 175 [facility] [address] [place] [address] Specialist Neurosurgery 05/02/23 Nichole Otto MD 175 [facility] [address] [place] [address] Surgeon Neurosurgery 05/02/23 documented as of this encounter
--- OUTSIDE RECORDS SUMMARY | 2024-05-26 07:58 | XMS_ITS | Encounter Summary ---
Author Organization [facility] Address [address] [place] [address] Care Team Providers Care Rn Spine Name Role Phone Riccardo Robledo MD Primary Care Provider [phone] Olga Ohcoa MD Unavailable Mina Dominguez PA-C Unavailable [phone] Addison Winslow PA-C Unavailable June Denton PA-C Unavailable Nichole Otto MD Unavailable [phone] Encounter Details Date Type Department Care Team Description 11/10/2023 Telephone Adult Medicine - [address] [address] Logan Romero PA-C [address] [place] [address] Social History Tobacco Use Types Packs/Day Years [...] Telephone Encounter - Logan Romero PA-C - 11/10/2023 5:26 PM EDT Canceling the appointment will not affect his contract. He is seen frequently enough. * Telephone Encounter - Carole RamanLatishaDandreLatisha - 11/10/2023 2:43 PM EDT Pt calling in and upcoming appt on 11/19, follow-up on hematuria. Pt double booked himself with another appt, was wondering if he could cancel this and would it affect his contract. It looks like it is a f/u for you regarding the hematuria??? Sorry to bother you but I want to make sure not to steer him in the wrong direction, please advise Thank you documented in this encounter Plan of Treatment Not on file documented as of this encounter Visit Diagnoses Not on filedocumented in this encounter Care Teams Rn Spine Relationship Specialty Start Date End Date Riccardo Robledo MD [address] [place] [address] PCP - General Internal Medicine 12/28/19 Olga Ochoa MD [address] [place] [address] Specialist Lung Cancer Puller Through 03/07/21 Mina Dominguez PA-C 299 [facility] [address] [place] [address] Specialist Thoracic Surgery 04/29/22 Addison Winslow PA-C 175 [facility] [address] [place] [address] Specialist Neurosurgery 05/02/23 June Denton PA-C 175 [facility] [address] [place] [address] Specialist Neurosurgery 05/02/23 Nichole Otto MD 175 [facility] [address] [place] [address] Surgeon Neurosurgery 05/02/23 documented as of this encounter
--- OUTSIDE RECORDS SUMMARY | 2024-05-26 07:58 | XMS_ITS | Encounter Summary ---
Author Organization [facility] Address [address] [place] [address] Care Team Providers Care Clinical Director Name Role Phone Riccardo Robledo MD Primary Care Provider [phone] Olga Ochoa MD Unavailable Mina Dominguez PA-C Unavailable Addison Winslow PA-C Unavailable June Denton PA-C Unavailable Nichole Otto MD Unavailable [phone] Encounter Details Date Type Department Care Team Description 12/09/2022 Pt. Non Urgent Medic al Question Adult Medicine - [address] [address] Logan Romero PA-C [address] [place] [address] Social History Tobacco Use Types Packs/Day Years [...] Telephone Encounter - Valerie Edwards L.P.N. - 12/09/2022 3:26 PM EDTFrom: Jv Monroy To: Danisha Romero Sent: 12/09/2022 3:20 PM EDT Subject: CT scan Byron I had a stress test done and it came out normal but I am still having some discomfort I don't know what is from could you order a last test for my heart a CT scan with IV to make sure I don't have any blockage as soon as possible at [facility] let me know Thank you documented in this encounter Plan of Treatment Not on file documented as of this encounter Visit Diagnoses Not on filedocumented in this encounter Care Teams Clinical Director Relationship Specialty Start Date End Date Riccardo Robledo MD [address] [place] [address] PCP - General Internal Medicine 12/28/19 Olga Ochoa MD [address] [place] [address] Specialist Lung Cancer Water Meter Mechanic 03/07/21 Mina Dominguez PA-C 299 [facility] [address] [place] [address] Specialist Thoracic Surgery 04/29/22 Addison Winslow PA-C 175 [facility] [address] [place] [address] Specialist Neurosurgery 05/02/23 June Denton PA-C 175 [facility] [address] [place] [address] Specialist Neurosurgery 05/02/23 Nichole Otto MD [address] [address] Surgeon Neurosurgery 05/02/23 documented as of this encounter
--- OUTSIDE RECORDS SUMMARY | 2024-05-26 07:58 | XMS_ITS | Encounter Summary ---
Author Organization [facility] Address [address] [place] [address] Care Team Providers Care Transcription Name Role Phone Riccardo Robledo MD Primary Care Provider Olga Ochoa MD Unavailable Mina Dominguez PA-C Unavailable Addison Winslow PA-C Unavailable [phone] June Denton-C Unavailable Nichole Otto MD Unavailable [phone] Reason for Visit * Reason Onset Date Comments Provider Call Back 11/20/2022 Encounter Details Date Type Department Care Team Description 11/20/2022 Telephone Adult Medicine - [place] [address] [place], [place] [id number] Riccardo Robledo MD [address] [place] [address] Provider Call Back Social History Tobacco Use [...] Telephone Encounter - Ree Beatty M.A. - 11/29/2022 2:34 PM EDT I called patient to explain that his preop information would be faxed to Dr. Beal and that Dr. Lennon does not call over the phone to give clearance. Patient started questioning the EKG differences again and I tried to tell him he needs to schedule an appointment. He was being very verbally rude. He stated the girl in the room that did my EKG did not know what the hell she was doing . I advised him that I was discontinuing the call as he was being very rude. * Telephone Encounter - Audrey Mcclendon - 11/29/2022 1:53 PM EDT Pt is looking for a call when this is complete, so he can know if he can have this procedure done * Telephone Encounter - Audrey Mcclendon - 11/29/2022 1:51 PM EDT Pt states he need Mireya Robledo to call Dr. Lian gabriel to clear the pt to have for his esophagus Please have clinical call the pt [phone] * Telephone Encounter - Ree Beatty M.A. - 11/29/2022 12:03 PM EDT Hi Audrey, can you please schedule this patient for an appointment to discuss this in person. Thankyou so much. * Telephone Encounter - Riccardo Robledo MD - 11/29/2022 11:50 AM EDT He should make an appointment I do not have any answers * Telephone Encounter - Audrey Mcclendon - 11/29/2022 9:21 AM EDT This is not an FYI Per pt Pt came in the office to drop off 2 EKG readings and was wondering why they are different. He would like to talk to the provider for more explanation Pt is also having a problem with gastro due to this Pt is looking for a call back to discuss this at [phone] Pt states he had another EKG done on 11/20 urgent care in [place] EKG was normal * Telephone Encounter - Katia Salinas - 11/20/2022 11:17 AM EDT Pt came in the office to drop off 2 EKG readings and was wondering why they are different. He wouldlike to talk to the provider for more explanation. EKG and reports are in the provider's folder behind the construction plant operator documented in this encounter Plan of Treatment Not on file documented as of this encounter Visit Diagnoses Not on filedocumented in this encounter Care Teams Transcription Relationship Specialty Start Date End Date Riccardo Robledo MD [address] [place] [address] PCP - General Internal Medicine 12/28/19 Olga Ochoa MD [address] [place] [address] Specialist Lung Cancer Learning Coordinator 03/07/21 Mina Dominguez PA-C 299 [facility] [address] [place] [address] Specialist Thoracic Surgery 04/29/22 Addison Winslow PA-C 175 [facility] [address] [place] [address] Specialist Neurosurgery 05/02/23 June Denton PA-C [address] [address] Specialist Neurosurgery 05/02/23 Nichole Otto MD [address] [address] Surgeon Neurosurgery 05/02/23 documented as of this encounter
--- OUTSIDE RECORDS SUMMARY | 2024-05-26 07:58 | XMS_ITS | Encounter Summary ---
Author Organization [facility] Address [address] [place] [address] Care Team Providers Care Assistant Department Manager Name Role Phone Riccardo Robledo MD Primary Care Provider [phone] Olga Ochoa MD Unavailable Mina Dominguez-C Unavailable [phone] Addison Winslow PACecileC Unavailable June Denton PA-C Unavailable Nichole Otto MD Unavailable [phone] Encounter Details Date Type Department Care Team Description 11/10/2023 SCAN [facility] Medical [facility] 175 [facility] [address] [place] [address] Akin Delacruz MD 175 [facility] [address] [place], [place] [phone] Social History Tobacco Use Types Packs/Day Years [...] on filedocumented in this encounter Care Teams Assistant Department Manager Relationship Specialty Start Date End Date Riccardo Robledo MD [address] [place] [address] PCP - General Internal Medicine 12/28/19 Olga Ochoa MD [address] [place] [address] Specialist Lung Cancer Commercial Crabber 03/07/21 Mina Dominguez PA-C 299 [facility] [address] [place] [address] Specialist Thoracic Surgery 04/29/22 Addison Winslow PA-C 175 [facility] [address] [place] [address] Specialist Neurosurgery 05/02/23 June Denton PA-C 175 [facility] 300 [place] [address] Specialist Neurosurgery 05/02/23 Nichole Otto MD 175 [facility] [address] [place] [address] Surgeon Neurosurgery 05/02/23 documented as of this encounter
--- OUTSIDE RECORDS SUMMARY | 2024-05-26 07:58 | XMS_ITS | Encounter Summary ---
Author Organization [facility] Address [address] [place] [address] Care Team Providers Care Gm/Svp Global Publisher Business Name Role Phone Riccardo Robledo MD Primary Care Provider Olga Ochoa MD Unavailable Mina DominguezC Unavailable [phone] Addison Winslow PA-C Unavailable [phone] June Denton PA-C Unavailable [phone] Nichole Otto MD Unavailable [phone] Encounter Details Date Type Department Care Team Description 07/05/2020 [facility] Medical Records [address] [place] [address] Wilmar Beal MD Social History Tobacco Use [...] on filedocumented in this encounter Care Teams Gm/Svp Global Publisher Business Relationship Specialty Start Date End Date Riccardo Robledo MD [address] [place] [address] PCP - General Internal Medicine 12/28/19 Olga Ochoa MD [address] [place] [address] Specialist Lung Cancer Regulatory Affairs Consultant 03/07/21 Mina Dominguez PA-C 299 [facility] [address] [place] [address] Specialist Thoracic Surgery 04/29/22 Addison Winslow PA-C 175 [facility] [address] [place] [address] Specialist Neurosurgery 05/02/23 June Denton PA-C 175 [facility] [address] [place] [address] Specialist Neurosurgery 05/02/23 Nichole Otto MD 175 [facility] [address] [place] [address] Surgeon Neurosurgery 05/02/23 documented as of this encounter
--- OUTSIDE RECORDS SUMMARY | 2024-05-26 07:58 | XMS_ITS | Encounter Summary ---
Author Organization [facility] Address [address] [place] [address] Care Team Providers Care Merchandise Collector Name Role Phone Riccardo Robledo MD Primary Care Provider Olga Ochoa MD Unavailable Mina Dominguez-C Unavailable [phone] Addison Winslow PA-C Unavailable [phone] June Denton PA-C Unavailable [phone] Nichole Otto MD Unavailable [phone] Encounter Details Date Type Department Care Team Description 11/29/2022 Orders Only Medical Records [address] [place] [address] Abstract, Provider Social History Tobacco Use Types [...] Name Priority Date/Time Associated Diagnosis Comments OUTSIDE EKG Routine 11/18/2022 documented in this encounter Results * OUTSIDE EKG (11/18/2022) Provider Abstract CARDIOLOGY documented in this encounter Visit Diagnoses Not on filedocumented in this encounter Care Teams Merchandise Collector Relationship Specialty Start Date End Date Riccardo Robledo MD [address] [place] [address] PCP - General Internal Medicine 12/28/19 Olga Ochoa MD [address] [place] [address] Specialist Lung Cancer Green Chain Marker 03/07/21 Mina Dominguez PA-C 299 [facility] [address] [place] [address] Specialist Thoracic Surgery 04/29/22 Addison Winslow PA-C 175 [facility] [address] [place] [address] Specialist Neurosurgery 05/02/23 June Denton PA-C 175 [facility] [address] [place] [address] Specialist Neurosurgery 05/02/23 Nichole Otto MD [address] [facility] [address] [place] [address] Surgeon Neurosurgery 05/02/23 documented as of this encounter
--- OUTSIDE RECORDS SUMMARY | 2024-05-26 07:58 | XMS_ITS | Encounter Summary ---
Author Organization [facility] Address [address] [place] [address] Care Team Providers Care Teacher Nursery School Name Role Phone Riccardo Robledo MD Primary Care Provider [phone] Olga Ochoa MD Unavailable Mina Dominguez-C Unavailable Addison Winslow-C Unavailable [phone] June Denton PA-C Unavailable Nichole Otto MD Unavailable [phone] Encounter Details Date Type Department Care Team Description 10/13/2023 Pt. Non Urgent Medic al Question Adult Medicine - [place] [address] [place] [address] Riccardo Robledo MD [address] [place] [address] Social History Tobacco Use Types Packs/Day Years [...] Encounter - Valerie Edwards L.P.N. - 10/13/2023 9:34 AM EDTFrom: Jv Davila: Will Robledo Sent: 10/13/2023 6:57 AM EDT Subject: Pulse DR Swanson I woke up this morning and my pulse was 47 and 46 and 45 is that normal let me know documented in this encounter Plan of Treatment Not on file documented as of this encounter Visit Diagnoses Not on filedocumented in this encounter Care Teams Teacher Nursery School Relationship Specialty Start Date End Date Riccardo Robledo MD [address] [place] [address] PCP - General Internal Medicine 12/28/19 Olga Ochoa MD [address] [place] [address] Specialist Lung Cancer Back Strip Machine Operator 03/07/21 Mina Dominguez PA-C [address] [phone] Specialist Thoracic Surgery 04/29/22 Addison Winslow PA-C 175 [facility] [address] [place] [address] Specialist Neurosurgery 05/02/23 June Denton PA-C 175 [facility] [address] [place] [address] Specialist Neurosurgery 05/02/23 Nichole Otto MD 175 [facility] [address] [place] [address] Surgeon Neurosurgery 05/02/23 documented as of this encounter
--- OUTSIDE RECORDS SUMMARY | 2024-05-26 07:58 | XMS_ITS | Encounter Summary ---
Author Organization [facility] Address [address] [place] [address] Care Team Providers Care Process Pumper Name Role Phone Riccardo Robledo MD Primary Care Provider [phone] Olga Ochoa MD Unavailable Mina Dominguez-C Unavailable Addison Winslow-C Unavailable June Denton-Will Unavailable Nichole Otto MD Unavailable [phone] Encounter Details Date Type Department Care Team Description 01/02/2023 Pt. Non Urgent Medic al Question Adult Medicine - [place] [address] [place] [address] Riccardo Robledo MD [address] [place] [address] Social History Tobacco Use Types Packs/Day Years [...] Telephone Encounter - Mary Austin L.P.N. - 01/03/2023 7:55 AM EDT From: Jv Monroy To: Will Robledo Sent: 01/02/2023 9:50 PM EDT Subject: Medical records from ER DR Swanson could you get my results of my blood work and EKG that was done in [facility] ER I went there yesterday about 130 pm and got home at 730 p m because I didn't want to wait to see a doctor for my esophagus problem the ER at [facility] has gotten bad the care there needs to be addressed please get my results and let me know the outcome of my blood work and EKG Thank you Valdemar call me at [phone] documented in this encounter Plan of Treatment Not on file documented as of this encounter Visit Diagnoses Not on filedocumented in this encounter Care Teams Process Pumper Relationship Specialty Start Date End Date Riccardo Robledo MD [address] [place] [address] PCP - General Internal Medicine 12/28/19 Olga Ochoa MD [address] [place] [address] Specialist Lung Cancer Liquid Sugar Melter 03/07/21 Mina Dominguez PA-C 299 [facility] [address] [place] [address] Specialist Thoracic Surgery 04/29/22 Addison Winslow PA-C 175 [facility] [address] [place] [address] Specialist Neurosurgery 05/02/23 June Denton PA-C 175 [facility] [address] [place] [address] Specialist Neurosurgery 05/02/23 Nichole Otto MD [address] [place] [address] Surgeon Neurosurgery 05/02/23 documented as of this encounter
--- OUTSIDE RECORDS SUMMARY | 2024-05-26 07:58 | XMS_ITS | Encounter Summary ---
Author Organization [facility] Address [address] [place] [address] Care Team Providers Care Die Maker Electronic Name Role Phone Riccardo Robledo MD Primary Care Provider Olga Ochoa MD Unavailable Mina Dominguez PA-C Unavailable [phone] Addison Winslow PA-C Unavailable [phone] June Denton PA-C Unavailable [phone] Nichole Otto MD Unavailable [phone] Encounter Details Date Type Department Care Team Description 09/20/2021 [facility] Medical Records [address] [place] [address] Abstract, Provider Social History Tobacco Use Types [...] on filedocumented in this encounter Care Teams Die Maker Electronic Relationship Specialty Start Date End Date Riccardo Robledo MD [address] [place] [address] PCP - General Internal Medicine 12/28/19 Olga Ochoa MD [address] [place] [address] Specialist Lung Cancer Mill Attendant 03/07/21 Mina Dominguez PA-C 299 [facility] [address] [place] [address] Specialist Thoracic Surgery 04/29/22 Addison Winslow PA-C 175 [facility] [address] [place] [address] Specialist Neurosurgery 05/02/23 June Denton PA-C 175 [facility] [address] [place] [address] Specialist Neurosurgery 05/02/23 Nichole Otto MD 175 [facility] [address] [place] [address] Surgeon Neurosurgery 05/02/23 documented as of this encounter
--- OUTSIDE RECORDS SUMMARY | 2024-05-26 07:58 | XMS_ITS | Encounter Summary ---
Author Organization [facility] Address [address] [place] [address] Care Team Providers Care Radial Arm Saw Operator Name Role Phone Riccardo Robledo MD Primary Care Provider [phone] Olga Ochoa MD Unavailable Mina Dominguez PA-C Unavailable [phone] Addison Winslow PA-C Unavailable June Denton-Will Unavailable Nichole Otto MD Unavailable [phone] Encounter Details Date Type Department Care Team Description 10/10/2023 Telephone [facility] Medical [facility] [address] [address] Akin Delacruz MD [address] [id number] Social History Tobacco Use Types Packs/Day Years [...] Miscellaneous Notes * Telephone Encounter - Pallavi Calderon - 10/10/2023 11:46 AM EDT Pt is checking status of letter requested yesterday through [employer] documented in this encounter Plan of Treatment Not on file documented as of this encounter Visit Diagnoses Not on filedocumented in this encounter Care Teams Radial Arm Saw Operator Relationship Specialty Start Date End Date Riccardo Robledo MD [address] [place] [address] PCP - General Internal Medicine 12/28/19 Olga Ochoa MD [address] [place] [address] Specialist Lung Cancer Bill Recapitulation Clerk 03/07/21 Mina Dominguez PA-C [address] [phone] Specialist Thoracic Surgery 04/29/22 Addison Winslow PA-C 175 [facility] [address] [place] [address] Specialist Neurosurgery 05/02/23 June Denton PA-C [address] [address] Specialist Neurosurgery 05/02/23 Nichole Otto MD [address] [address] Surgeon Neurosurgery 05/02/23 documented as of this encounter
--- OUTSIDE RECORDS SUMMARY | 2024-05-26 07:58 | XMS_ITS | Encounter Summary ---
Author Organization [facility] Address [address] [place] [address] Care Team Providers Care Custodial Foreman Name Role Phone Riccardo Robledo MD Primary Care Provider Ogla Ochoa MD Unavailable Mina Dominguez PA-C Unavailable Addison Winslow PA-C Unavailable June Denton PA-C Unavailable Nichole Otto MD Unavailable [phone] Reason for Visit * Reason Comments E-prescribe Rx Request Encounter Details Date Type Department Care Team Description 11/11/2020 Refill Adult Medicine - [address] [address] Anastasiya Gary PA-C E-prescribe Rx Request Social History Tobacco Use [...] encounter Miscellaneous Notes * Telephone Encounter - Anastasiya Gary PA-C - 11/13/2020 4:30 PM EDT Partial refill has appointment with Byron next week * Telephone Encounter - Pallavi [place] M.A. - 11/13/2020 2:43 PM EDT MERVAT - 09/20/20 NOV - 11/21/20 * Telephone Encounter - Sylvia Cazaers - 11/13/2020 2:15 PM EDT Patient would like script to be: E-PRESCRIBED/FAXED TO PHARMACY WHEN WAS THE PATIENT'S LAST APPOINTMENT IN ADULT MEDICINE? 09/20/2020 WHEN WAS THE LAST TIME THE PATIENT SAW THEIR PCP? Same as above Does patient have an upcoming appointment? Yes 11/21/2020 (THE MEDICATION REQUESTED IS ON THE MED [...] / Plan: [place] / Product Type: MEDICARE [id number] documented in this encounter Plan of Treatment Not on file documented as of this encounter Visit Diagnoses Not on filedocumented in this encounter Care Teams Custodial Foreman Relationship Specialty Start Date End Date Riccardo Robledo MD [address] [place] [address] PCP - General Internal Medicine 12/28/19 Olga Ochoa MD [address] [place] [address] Specialist Lung Cancer Manager Surgery 03/07/21 Mina Dominguez PA-C [address] [phone] Specialist Thoracic Surgery 04/29/22 Addison Winslow PA-C 175 [facility] [address] [place] [address] Specialist Neurosurgery 05/02/23 June Denton PA-C [address] [address] Specialist Neurosurgery 05/02/23 Nichole Otto MD [address] [address] Surgeon Neurosurgery 05/02/23 documented as of this encounter
--- OUTSIDE RECORDS SUMMARY | 2024-05-26 07:59 | XMS_ITS | Encounter Summary ---
Author Organization [facility] Address [address] [place] [address] Care Team Providers Care Home Theater Specialist Name Role Phone iRccardo Robledo MD Primary Care Provider [phone] Olga Ochoa MD Unavailable Mina Dominguez-C Unavailable [phone] Addison Winslow-C Unavailable [phone] June Denton PA-C Unavailable [phone] Nichole Otto MD Unavailable [phone] Encounter Details Date Type Department Care Team Description 08/20/2023 Pt. Non Urgent Medic al Question Adult Medicine - [place] [address] [place] [address] Riccardo Robledo MD [address] [place] [address] Social History Tobacco Use Types Packs/Day Years [...] Telephone Encounter - Mary Austin L.P.N. - 08/20/2023 4:42 PM EDT From: Jv Monroy To: Will Robledo Sent: 08/20/2023 3:29 PM EDT Subject: Blood test DR Sawnson please call me as soon as possible I need to talk to you right a way documented in this encounter Plan of Treatment Not on file documented as of this encounter Visit Diagnoses Not on filedocumented in this encounter Care Teams Home Theater Specialist Relationship Specialty Start Date End Date Riccardo Robledo MD [address] [place] [address] PCP - General Internal Medicine 12/28/19 Olga Ochoa MD [address] [place] [address] Specialist Lung Cancer Change Management 03/07/21 Mina Dominguez PA-C [address] [address] Specialist Thoracic Surgery 04/29/22 Addison Winslow PA-C 175 [facility] 300 [place] [address] Specialist Neurosurgery 05/02/23 June Denton PA-C 175 [facility] 300 [place] [address] Specialist Neurosurgery 05/02/23 Nichole Otto MD 175 [facility] [address] [place] [address] Surgeon Neurosurgery 05/02/23 documented as of this encounter
--- OUTSIDE RECORDS SUMMARY | 2024-05-26 07:59 | XMS_ITS | Encounter Summary ---
Author Organization [facility] Address [address] [place] [address] Care Team Providers Care Dimension Stone Quarry Supervisor Name Role Phone Riccardo Robledo MD Primary Care Provider [phone] Olga Ochoa MD Unavailable Mina Dominguez PA-C Unavailable [phone] Addison Winslow PA-C Unavailable June Denton PA-C Unavailable Nichole Otto MD Unavailable [phone] Reason for Referral * Radiology Services (Routine) - Closed Specialty Diagnoses / Procedures Referred By Contjayce t Referred To Contact Radiology Diagnoses Lumbar radiculopathy Procedures MRI OF LUMBAR SPINE NO CONTRAST Logan Romero PA-C [address] [place], [place] Mri/[address] [address] Referral ID Status Reason Start Date Expiration Date Visits Re quested Visits Authorized Closed 08/27/2022 08/27/2023 1 1 Encounter Details Date Type Department Care Team Description 08/26/2022 Pt. Non Urgent Medical Question Adult Medicine - [address] [address] Logan Romero PA-C [address] [place] [address] Lumbar radiculopathy (Primary Dx); Leg heaviness Social History Tobacco Use Types Packs/Day Years [...] suspected to have Coronavirus/COVID-19? No / Unsure 08/20/2022 9:52 AM EDT documented as of this encounter Miscellaneous Notes * Telephone Encounter - Mary Austin L.P.N. - 08/27/2022 7:23 AM EDT From: Jv Monroy To: Danisha Romero Sent: 08/26/2022 6:04 PM EDT Subject: MRI Byron did you order my MRI for my back Yet this Jv Thank you documented in this encounter Plan of Treatment Not on file documented as of this encounter Results * MRI OF LUMBAR SPINE NO CONTRAST (08/30/2022 12:02 PM EDT) 08/30/2022 4:18 PM EDT Impressions [facility] OTHER EXTERNAL - 08/30/2022 6:00 PM EDT IMPRESSION: Minimal degenerative changes have stable appearance compared with 09/15/2020. ??No new nerve root impingement. ??No high-grade neural foraminal narrowing or spinal canal stenosis at any level. POS - [id number] Narrative [place] OTHER EXTERNAL - 08/30/2022 6:00 PM EDT EXAM: Lumbar spine MRI HISTORY: ??Low back pain COMPARISON: 09/15/2020 CORRELATION: ??Lumbar spine radiography 08/20/2022 TECHNIQUE: Exam performed on a 1.5 Cathleen high-field MRI scanner. ??Multiplanar imaging performed without contrast. FINDINGS: Conus medullaris terminates at T12-L1 which is within normal limits. ??No abnormal cord signal detected. Vertebral body heights are maintained. ??No new focal suspicious bone lesion. ??Chronic prominent anterior partial bridging osteophytes at L2-3 and L3-4. Intervertebral disc heights are maintained and the discs are well-hydrated. Partially imaged 2.4 cm T1 hypointense and T2 hyperintense signal lesion in the right lower kidney statistically represents a cyst. L1-L2: No significant disc bulging or evidence of a disc protrusion or extrusion. ??No significant neural foraminal narrowing or spinal canal stenosis. L2-L3: Chronic minimal disc bulging. ??No significant neural foraminal narrowing or spinal canal stenosis. L3-L4: Chronic minimal disc bulging. ??No significant neural foraminal narrowing or spinal canal stenosis. L4-L5: Chronic minimal disc bulging. ??Minimal bilateral facet arthropathy. ??No significant neural foraminal narrowing or spinal canal stenosis. L5-S1: Chronic minimal disc bulging. ??Minimal bilateral facet arthropathy. ??Mild right neural foraminal narrowing. ??No significant left neural foraminal narrowing or significant spinal canal stenosis. Procedure Note Savannah Schultz MD - 08/30/2022 EXAM: Lumbar spine MRI HISTORY: Low back pain COMPARISON: 09/15/2020 CORRELATION: Lumbar spine radiography 08/20/2022 TECHNIQUE: Exam performed on a 1.5 Cathleen high-field MRI scanner.Multiplanar imaging performed without contrast. FINDINGS: Conus medullaris terminates at T12-L1 which is within normal limits. Noabnormal cord signal detected. Vertebral body heights are maintained. No new focal suspicious bonelesion. Chronic prominent anterior partial bridging osteophytes at L2-3 and L3-4. Intervertebral disc heights are maintained and the discs arewell-hydrated. Partially imaged 2.4 cm T1 hypointense and T2 hyperintense signal lesionin the right lower kidney statistically represents a cyst. L1-L2: No significant disc bulging or evidence of a disc protrusion orextrusion. No significant neural foraminal narrowing or spinal canal stenosis. L2-L3: Chronic minimal disc bulging. No significant neural foraminalnarrowing or spinal canal stenosis. L3-L4: Chronic minimal disc bulging. No significant neural foraminalnarrowing or spinal canal stenosis. L4-L5: Chronic minimal disc bulging. Minimal bilateral facet arthropathy.No significant neural foraminal narrowing or spinal canal stenosis. L5-S1: Chronic minimal disc bulging. Minimal bilateral facet arthropathy.Mild right neural foraminal narrowing. No significant left neural foraminal narrowing orsignificant spinal canal stenosis. IMPRESSION IMPRESSION: Minimal degenerative changes have stable appearance compared with09/15/2020. No new nerve root impingement. No high-grade neural foraminal narrowing or spinalcanal stenosis at any level. POS - [id number] Logan Romero PA-C MRI [facility] OTHER EXTERNAL documented in this encounter Visit Diagnoses Diagnosis Lumbar radiculopathy- Primary Thoracic or lumbosacral neuritis or radiculitis, unspecified Leg heaviness Other musculoskeletal symptoms referable to limbs Lumbar radiculopathy Thoracic or lumbosacral neuritis or radiculitis, unspecified documented in this encounter Care Teams Dimension Stone Quarry Supervisor Relationship Specialty Start Date End Date Riccardo Robledo MD [address] [place] [address] PCP - General Internal Medicine 12/28/19 Olga Ochoa MD [address] [place] [address] Specialist Lung Cancer Oven Unloader 03/07/21 Mina Dominguez PA-C 299 [facility] [address] [place] [address] Specialist Thoracic Surgery 04/29/22 Addison Winslow PA-C 175 [facility] [address] [place] [address] Specialist Neurosurgery 05/02/23 June Denton PA-C 175 [facility] [address] [place] [address] Specialist Neurosurgery 05/02/23 Nichole Otto MD [address] [place] [address] [place] [address] Surgeon Neurosurgery 05/02/23 documented as of this encounter
--- OUTSIDE RECORDS SUMMARY | 2024-05-26 07:59 | XMS_ITS | Encounter Summary ---
Author Organization [facility] Address [address] [place] [address] Care Team Providers Care Chief School Finance Officer Name Role Phone Riccardo Robledo MD Primary Care Provider [phone] Olga Ochoa MD Unavailable Mina DominguezC Unavailable Addison Winslow PA-C Unavailable June Denton PA-C Unavailable Nichole Otto MD Unavailable [phone] Encounter Details Date Type Department Care Team Description 06/30/2023 Net Software Engineer Report Medical Records [address] [place] [address] Center, [facility] [address] [place] [address] Social History Tobacco Use Types Packs/Day Years [...] on filedocumented in this encounter Care Teams Chief School Finance Officer Relationship Specialty Start Date End Date Riccardo Robledo MD [address] [place] [address] PCP - General Internal Medicine 12/28/19 Olga Ochoa MD [address] [place] [address] Specialist Lung Cancer Application Support Intern 03/07/21 Mina Dominguez PA-C [address] [address] Specialist Thoracic Surgery 04/29/22 Addison Winslow PA-C 175 [facility] [address] [place] [address] Specialist Neurosurgery 05/02/23 June Denton PA-C [address] [address] Specialist Neurosurgery 05/02/23 Nichole Otto MD 175 [facility] 300 [place] [address] Surgeon Neurosurgery 05/02/23 documented as of this encounter
--- OUTSIDE RECORDS SUMMARY | 2024-05-26 07:59 | XMS_ITS | Encounter Summary ---
Author Organization [facility] Address [address] [place] [address] Care Team Providers Care Digital Marketing Intern Name Role Phone Riccardo Robledo MD Primary Care Provider Olga Ochoa MD Unavailable Mina Dominguez PA-C Unavailable Addison Winslow PA-C Unavailable June Dneton-C Unavailable Nichole Otto MD Unavailable [phone] Reason for Visit * Reason Onset Date Comments Error 09/05/2022 Encounter Details Date Type Department Care Team Description 09/05/2022 Telephone Adult Medicine - [place] [address] [place], [place] [id number] Riccardo Robledo MD [address] [place], [place] [id number] Error Social History Tobacco Use Types Packs/Day Years [...] suspected to have Coronavirus/COVID-19? No / Unsure 08/30/2022 11:20 AM EDT documented as of this encounter Plan of Treatment Not on file documented as of this encounter Visit Diagnoses Not on filedocumented in this encounter Care Teams Digital Marketing Intern Relationship Specialty Start Date End Date Riccardo Robledo MD [address] [place] [address] PCP - General Internal Medicine 12/28/19 Olga Ochoa MD [address] [place] [address] Specialist Lung Cancer [place] 03/07/21 Mina Dominguez PA-C [address] [phone] Specialist Thoracic Surgery 04/29/22 Addison Winslow PA-C 175 [facility] [address] [place] [address] Specialist Neurosurgery 05/02/23 June Denton PA-C 175 [facility] [address] [place] [address] Specialist Neurosurgery 05/02/23 Nichole Otto MD 175 [facility] 300 [place] [address] Surgeon Neurosurgery 05/02/23 documented as of this encounter
--- OUTSIDE RECORDS SUMMARY | 2024-05-26 07:59 | XMS_ITS | Encounter Summary ---
Author Organization [facility] Address [address] [place] [address] Care Team Providers Care System Programmer Name Role Phone Riccardo Robledo MD Primary Care Provider Olga Ochoa MD Unavailable Mina DominguezC Unavailable [phone] Addison Winslow PA-C Unavailable [phone] June Denton PA-C Unavailable [phone] Nichole Otto MD Unavailable [phone] Encounter Details Date Type Department Care Team Description 07/01/2023 Release of Information Medical Records [address] [place] [address] Abstract, Provider Social History Tobacco Use Types [...] on filedocumented in this encounter Care Teams System Programmer Relationship Specialty Start Date End Date Riccardo Robledo, [address] [place] [address] PCP - General Internal Medicine 12/28/19 Olga Ochoa MD [address] [place] [address] Specialist Lung Cancer Retort Operator 03/07/21 Mina Dominguez PA-C 299 [facility] [address] [place] [phone] Specialist Thoracic Surgery 04/29/22 Addison Winslow PA-C 175 [facility] [address] [place] [address] Specialist Neurosurgery 05/02/23 June Denton PA-C 175 [facility] [address] [place] [address] Specialist Neurosurgery 05/02/23 Nichole Otto MD 175 [facility] [address] [place] [address] Surgeon Neurosurgery 05/02/23 documented as of this encounter
--- OUTSIDE RECORDS SUMMARY | 2024-05-26 07:59 | XMS_ITS | Encounter Summary ---
Author Organization [facility] Address [address] [place] [address] Care Team Providers Care Waxed Bag Machine Operator Name Role Phone Riccardo Robledo MD Primary Care Provider [phone] Olga Ochoa MD Unavailable Mina Dominguez-C Unavailable Addison Winslow-C Unavailable June Denton-Will Unavailable Nichole Otto MD Unavailable [phone] Encounter Details Date Type Department Care Team Description 09/27/2022 Pt. Non Urgent Medic al Question Adult Medicine - [place] [address] [place] [address] Riccardo Robledo MD [address] [place] [address] Social History Tobacco Use Types Packs/Day Years [...] Telephone Encounter - Mireya Figueroa M.A. - 09/27/2022 4:17 PM EDTFrom: Jv Monroy To: Will Robledo Sent: 09/27/2022 3:59 PM EDT Subject: Blood work Could you please tell me my blood work results before you leave today this is Jv I don't know how to read the results that I got call me as soon as possible thank you [email or web address] documented in this encounter Plan of Treatment Not on file documented as of this encounter Visit Diagnoses Not on filedocumented in this encounter Care Teams Waxed Bag Machine Operator Relationship Specialty Start Date End Date Riccardo Robledo MD [address] [place] [address] PCP - General Internal Medicine 12/28/19 Olga Ochoa MD [address] [place] [address] Specialist Lung Cancer Barrel Centerer 03/07/21 Mina Dominguez PA-C [address] [address] Specialist Thoracic Surgery 04/29/22 Addison Winslow PA-C 175 [facility] 300 [place] [address] Specialist Neurosurgery 05/02/23 June Denton PA-C [address] [address] Specialist Neurosurgery 05/02/23 Nichole Otto MD [address] [address] Surgeon Neurosurgery 05/02/23 documented as of this encounter
--- OUTSIDE RECORDS SUMMARY | 2024-05-26 07:59 | XMS_ITS | Encounter Summary ---
Author Organization [facility] Address [address] [place] [address] Care Team Providers Care Analytical Chemist Name Role Phone Riccardo Robledo MD Primary Care Provider Olga Ochoa MD Unavailable Mina Dominguez-C Unavailable Addison WinslowC Unavailable June Denton PA-C Unavailable Nichole Otto MD Unavailable [phone] Encounter Details Date Type Department Care Team Description 08/01/2023 Pt. Non Urgent Medic al Question Adult Medicine - [place] [address] [place] [address] Riccardo Robledo MD [address] [place] [address] Social History Tobacco Use Types Packs/Day Years [...] on filedocumented in this encounter Care Teams Analytical Chemist Relationship Specialty Start Date End Date Riccardo Robledo MD [address] [place] [address] PCP - General Internal Medicine 12/28/19 Olga Ochoa MD [address] [place] [address] Specialist Lung Cancer Floor Clerk 03/07/21 Mina Dominguez PA-C 299 [facility] [address] [place] [phone] Specialist Thoracic Surgery 04/29/22 Addison Winslow PA-C 175 [facility] [address] [place] [address] Specialist Neurosurgery 05/02/23 June Denton PA-C 175 [facility] 300 [place] [address] Specialist Neurosurgery 05/02/23 Nichole Otto MD 175 [facility] 300 [place] [address] Surgeon Neurosurgery 05/02/23 documented as of this encounter
--- OUTSIDE RECORDS SUMMARY | 2024-05-26 07:59 | XMS_ITS | Encounter Summary ---
Author Organization [facility] Address [address] [place] [address] Care Team Providers Care Statistical Engineer Name Role Phone Riccardo Robledo MD Primary Care Provider [phone] Olga Ochoa MD Unavailable Mina Dominguez PA-C Unavailable Addison Winslow-C Unavailable [phone] June Denton-Will Unavailable Nichole Otto MD Unavailable [phone] Encounter Details Date Type Department Care Team Description 07/02/2021 Refill Adult Medicine - [place] [address] [place], [place] [phone] Riccardo Robledo MD [address] [place], [place] [phone] Social History Tobacco Use Types Packs/Day Years [...] suspected to have Coronavirus/COVID-19? No / Unsure 06/21/2021 1:54 PM EDT documented as of this encounter Miscellaneous Notes * Telephone Encounter - Mireya Figueroa M.A. - 07/02/2021 10:45 AM EDT Images from the original note were not included. Please review BARREL ASSEMBLER Patient has been receiving Lyrica 50 mg from and 25 mg from us. Still has 2 refills remaining on file from RX 04/11/21 documented in this encounter Plan of Treatment Not on file documented as of this encounter Visit Diagnoses Not on filedocumented in this encounter Care Teams Statistical Engineer Relationship Specialty Start Date End Date Riccardo Robledo MD [address] [place] [address] PCP - General Internal Medicine 12/28/19 Olga Ochoa MD [address] [place] [address] Specialist Lung Cancer Hotel Yardperson 03/07/21 Mina Dominguez PA-C 299 [facility] [address] [place] [address] Specialist Thoracic Surgery 04/29/22 Addison Winslow PA-C 175 [facility] [address] [place] [address] Specialist Neurosurgery 05/02/23 June Denton PA-C 175 [facility] [address] [place] [address] Specialist Neurosurgery 05/02/23 Nichole Otto MD [address] [address] Surgeon Neurosurgery 05/02/23 documented as of this encounter
--- OUTSIDE RECORDS SUMMARY | 2024-05-26 07:59 | XMS_ITS | Encounter Summary ---
Author Organization [facility] Address [address] [place] [address] Care Team Providers Care Sandblaster Stone Name Role Phone Riccardo Robledo MD Primary Care Provider [phone] Olga Ochoa MD Unavailable Mina Dominguez PA-C Unavailable Addison Winslow PA-C Unavailable June Denton PA-C Unavailable Nichole Otto MD Unavailable [phone] Reason for Visit * Reason Onset Date Comments refill request 06/13/2021 oxycodone refill Encounter Details Date Type Department Care Team Description 06/13/2021 Telephone [facility] Thoracic Surgery [place] 299 [facility] [address] [place] [address] Mina Dominguez PA-C [address] [facility] [address] [place] [address] refill request (oxycodone refill) Social History Tobacco Use Types Packs/Day Years [...] have Coronavirus / COVID-19? No / Unsure 06/04/2021 9:28 AM EDT documented as of this encounter Miscellaneous Notes * Telephone Encounter - Ly Kraus PA-C - 06/13/2021 12:58 PM EDT Noted. Thank you. PCP will resume narcotic prescriptions. * Telephone Encounter - Gloria Ramey CMA - 06/13/2021 10:35 AM EDT Patient called for refill of oxycodone all nervous that he may break his contract with his PCP Dr Robledo if he didn't get a refill. He said that [facility] has taken over his drug contract but I told him no he has that with his PCP. Patient mentioned that he also called his PCP office. I called the pharmacy [facility] [address] [phone] and spoke with pharmacist Kemar and he told me that he spoke with someone at PCP office and they will be sending script for liquid oxycodone. I called PCP office to confirm that rx liquid was being sent and Mireya ( refill nurse) told me Dr Citlalli Swanson sent liquid oxycodone to [facility] today. Will Dominguez also sent script for oxy tablets. Pharmacy shouldfill only liquid documented in this encounter Plan of Treatment Not on file documented as of this encounter Visit Diagnoses Not on filedocumented in this encounter Care Teams Sandblaster Stone Relationship Specialty Start Date End Date Riccardo Robledo MD [address] [place] [address] PCP - General Internal Medicine 12/28/19 Olga Ochoa MD [address] [place] [address] Specialist Lung Cancer Clinical Staff Anesthesiologist 03/07/21 Mina Dominguez PA-C 299 [facility] [address] [place] [address] Specialist Thoracic Surgery 04/29/22 Addison Winslow PA-C 175 [facility] 300 [place] [address] Specialist Neurosurgery 05/02/23 June Denton PA-C 175 [facility] 300 [place] [address] Specialist Neurosurgery 05/02/23 Nichole Otto MD 175 [facility] 300 [place], [place] [phone] Surgeon Neurosurgery 05/02/23 documented as of this encounter
--- OUTSIDE RECORDS SUMMARY | 2024-05-26 07:59 | XMS_ITS | Encounter Summary ---
Author Organization [facility] Address [address] [place] [address] Care Team Providers Care Plumbing And Heating Mechanic Name Role Phone Riccardo Robledo MD Primary Care Provider [phone] Olga Ochoa MD Unavailable Mina Dominguez-C Unavailable Addison Winslow-C Unavailable June Denton-Will Unavailable Nichole Otto MD Unavailable [phone] Encounter Details Date Type Department Care Team Description 08/26/2022 Pt. Non Urgent Medic al Question Adult Medicine - [place] [address] [place] [address] Riccardo Robledo MD [address] [place] [address] Social History Tobacco Use Types Packs/Day Years [...] Encounter - Mary Austin L.P.N. - 08/27/2022 8:34 AM EDT From: Jv Monroy To: Will Robledo Sent: 08/26/2022 6:01 PM EDT Subject: Patch for back DR Swanson could [facility] could you do a pier off for the patch for my back Thank you Valdemar if you could please documented in this encounter Plan of Treatment Not on file documented as of this encounter Visit Diagnoses Not on filedocumented in this encounter Care Teams Plumbing And Heating Mechanic Relationship Specialty Start Date End Date Riccardo Robledo MD [address] [place] [address] PCP - General Internal Medicine 12/28/19 Olga Ochoa MD [address] [place] [address] Specialist Lung Cancer [place] 03/07/21 Mina Dominguez PA-C 299 [facility] [address] [place] [address] Specialist Thoracic Surgery 04/29/22 Addison Winslow PA-C 175 [facility] [address] [place] [address] Specialist Neurosurgery 05/02/23 June Denton PA-C 175 [facility] 300 [place] [address] Specialist Neurosurgery 05/02/23 Nichole Otto MD 175 [facility] 300 [place] [address] Surgeon Neurosurgery 05/02/23 documented as of this encounter
--- OUTSIDE RECORDS SUMMARY | 2024-05-26 07:59 | XMS_ITS | Encounter Summary ---
Author Organization [facility] Address [address] [place] [address] Care Team Providers Care Locomotive Operator Helper Name Role Phone Riccardo Robledo MD Primary Care Provider [phone] Olga Ochoa MD Unavailable Mina Dominguez-C Unavailable Addison Winslow PA-C Unavailable June Denton PA-C Unavailable Nichole Otto MD Unavailable [phone] Encounter Details Date Type Department Care Team Description 09/02/2022 [facility] 175 [facility] [address] [place] [address] Sharmila Martinez APRN Social History Tobacco Use Types Packs/Day Years [...] filedocumented in this encounter Care Teams Locomotive Operator Helper Relationship Specialty Start Date End Date Riccardo Robledo MD [address] [place] [address] PCP - General Internal Medicine 12/28/19 Olga Ochoa MD [address] [place] [address] Specialist Lung Cancer Steward/Stewardess [employer] Dining Car 03/07/21 Mina Dominguez PA-C [address] [phone] Specialist Thoracic Surgery 04/29/22 Addison Winslow PA-C 175 [facility] 300 [place] [address] Specialist Neurosurgery 05/02/23 June Denton PA-C 175 [facility] [address] [place] [address] Specialist Neurosurgery 05/02/23 Nichole Otto MD [address] [address] Surgeon Neurosurgery 05/02/23 documented as of this encounter
--- OUTSIDE RECORDS SUMMARY | 2024-05-26 07:59 | XMS_ITS | Encounter Summary ---
Author Organization [facility] Address [address] [place] [address] Care Team Providers Care Commercial Green Retrofit Architect Name Role Phone Riccardo Robledo MD Primary Care Provider Olga Ochoa MD Unavailable Mina Dominguez-C Unavailable [phone] Addison WinslowC Unavailable [phone] June Denton PA-C Unavailable [phone] Ncihole Otto MD Unavailable [phone] Encounter Details Date Type Department Care Team Description 05/09/2022 [facility] Medical Records [address] [place] [address] Wilmar Beal MD Social History Tobacco Use [...] suspected to have Coronavirus/COVID-19? No / Unsure 05/08/2022 8:55 AM EST documented as of this encounter Plan of Treatment Not on file documented as of this encounter Visit Diagnoses Not on filedocumented in this encounter Care Teams Commercial Green Retrofit Architect Relationship Specialty Start Date End Date Riccardo Robledo MD [address] [place] [address] PCP - General Internal Medicine 12/28/19 Olga Ochoa MD [address] [place] [address] Specialist Lung Cancer Prepper 03/07/21 Mina Dominguez PA-C 299 [facility] [address] [place] [phone] Specialist Thoracic Surgery 04/29/22 Addison Winslow PA-C 175 [facility] [address] [place] [address] Specialist Neurosurgery 05/02/23 June Denton PA-C 175 [facility] [address] [place] [address] Specialist Neurosurgery 05/02/23 Nichole Otto MD 175 [facility] [address] [place] [address] Surgeon Neurosurgery 05/02/23 documented as of this encounter
--- OUTSIDE RECORDS SUMMARY | 2024-05-26 07:59 | XMS_ITS | Encounter Summary ---
Author Organization [facility] Address [address] [place] [address] Care Team Providers Care Interlocking Installer Name Role Phone Riccardo Robledo MD Primary Care Provider [phone] Olga Ochoa MD Unavailable Mina Dominguez PA-C Unavailable Addison Winslow PA-C Unavailable [phone] June Denton PA-C Unavailable [phone] Nichole Otto MD Unavailable [phone] Encounter Details Date Type Department Care Team Description 08/26/2022 Pt. Non Urgent Medic al Question Adult Medicine - [address] [address] Logan Romero PA-C [address] [place] [address] Social History Tobacco Use Types Packs/Day Years [...] on filedocumented in this encounter Care Teams Interlocking Installer Relationship Specialty Start Date End Date Riccardo Robledo MD [address] [place] [address] PCP - General Internal Medicine 12/28/19 Olga Ochoa MD [address] [place] [address] Specialist Lung Cancer Middleware Engineer 03/07/21 Mina Dominguez PA-C [address] [phone] Specialist Thoracic Surgery 04/29/22 Addison Winslow PA-C 175 [facility] [address] [place] [address] Specialist Neurosurgery 05/02/23 June Denton PA-C 175 [facility] [address] [place] [address] Specialist Neurosurgery 05/02/23 Nichole Otto MD 175 [facility] 300 [place] [address] Surgeon Neurosurgery 05/02/23 documented as of this encounter
--- OUTSIDE RECORDS SUMMARY | 2024-05-26 07:59 | XMS_ITS | Encounter Summary ---
Author Organization [facility] Address [address] [place] [address] Care Team Providers Care Family Court Registrar Name Role Phone Riccardo Robledo MD Primary Care Provider [phone] Olga Ochoa MD Unavailable Mina Dominguez-C Unavailable Addison Winslow-Will Unavailable [phone] June Denton PA-C Unavailable Nichole Otto MD Unavailable [phone] Encounter Details Date Type Department Care Team Description 08/29/2023 Pt. Non Urgent Medic al Question Adult Medicine - [place] [address] [place] [address] Riccardo Robledo MD [address] [place] [address] Social History Tobacco Use Types Packs/Day Years [...] Telephone Encounter - Mireya Figueroa M.A. - 08/29/2023 3:21 PM EDTFrom: Jv Monroy To: Will Robledo Sent: 08/29/2023 1:28 PM EDT Subject: Medication DR Swanson please send my script for both pain medication it is due today I was very busy with my mom and I couldn't call you earlier Thank you HenryGSantaJr documented in this encounter Plan of Treatment Not on file documented as of this encounter Visit Diagnoses Not on filedocumented in this encounter Care Teams Family Court Registrar Relationship Specialty Start Date End Date Riccardo Robledo MD [address] [place] [address] PCP - General Internal Medicine 12/28/19 Olga Ochoa MD [address] [place] [address] Specialist Lung Cancer Agency Trainer 03/07/21 Mina Dominguez PA-C 299 [facility] [address] [place] [address] Specialist Thoracic Surgery 04/29/22 Addison Winslow PA-C 175 [facility] 300 [place] [address] Specialist Neurosurgery 05/02/23 June Denton PA-C 175 [facility] 300 [place] [address] Specialist Neurosurgery 05/02/23 Nichole Otto MD 175 [facility] 300 [place] [address] Surgeon Neurosurgery 05/02/23 documented as of this encounter
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
--- OUTSIDE RECORDS SUMMARY | 2024-05-26 07:59 | XMS_ITS | Encounter Summary ---
Author Organization [facility] Address [address] [place] [address] Care Team Providers Care Atm Technician Name Role Phone Riccardo Robledo MD Primary Care Provider [phone] Olga Ochoa MD Unavailable Mina Dominguez-C Unavailable Addison Winslow-C Unavailable [phone] June Denton PA-C Unavailable Nichole Otto MD Unavailable [phone] Encounter Details Date Type Department Care Team Description 08/11/2023 Pt. Non Urgent Medic al Question Adult Medicine - [place] [address] [place] [address] Riccardo Robledo MD [address] [place] [address] Social History Tobacco Use Types Packs/Day Years [...] Telephone Encounter - Valerie Edwards L.P.N. - 08/11/2023 4:23 PM EDTFrom: Jv Davila: Will Robledo Sent: 08/11/2023 4:18 PM EDT Subject: Blood pressure DR Swanson my blood pressure was 148 over 86 pulse 73 should I worried please let me know I took it at 409 pm then I took the blood pressure again at 410 pm and it was 131 over 81 pulse 65 call me or email me and let me know documented in this encounter Plan of Treatment Not on file documented as of this encounter Visit Diagnoses Not on filedocumented in this encounter Care Teams Atm Technician Relationship Specialty Start Date End Date Riccardo Robledo MD [address] [place] [address] PCP - General Internal Medicine 12/28/19 Olga Ochoa MD [address] [place] [address] Specialist Lung Cancer Forensic Psychiatrist 03/07/21 Mina Dominguez PA-C [address] [address] Specialist Thoracic Surgery 04/29/22 Addison Winslow PA-C 175 [facility] 300 [place] [address] Specialist Neurosurgery 05/02/23 June Denton PA-C 175 [facility] 300 [place] [address] Specialist Neurosurgery 05/02/23 Nichole Otto MD 175 [facility] 300 [place] [address] Surgeon Neurosurgery 05/02/23 documented as of this encounter
--- OUTSIDE RECORDS SUMMARY | 2024-05-26 07:59 | XMS_ITS | Encounter Summary ---
Author Organization [facility] Address [address] [place] [address] Care Team Providers Care Dosimetrist Name Role Phone Riccardo Robledo MD Primary Care Provider [phone] Olga Ochoa MD Unavailable Mina Dominguez PA-C Unavailable [phone] Addison Winslow PA-C Unavailable June Denton PA-C Unavailable Nichole Otto MD Unavailable [phone] Encounter Details Date Type Department Care Team Description 07/02/2021 Refill [facility] Thoracic Surgery [place] 299 [facility] [address] [place] [address] Mina Dominguez PA-C 299 [facility] [place] [address] [place] [phone] Social History Tobacco Use Types Packs/Day Years [...] on filedocumented in this encounter Care Teams Dosimetrist Relationship Specialty Start Date End Date Riccardo Robledo MD [address] [place] [address] PCP - General Internal Medicine 12/28/19 Olga Ochoa MD [address] [place] [address] Specialist Lung Cancer Esthetics Instructor 03/07/21 Mina Dominguez PA-C [address] [phone] Specialist Thoracic Surgery 04/29/22 Addison Winslow PA-C 175 [facility] [address] [place] [address] Specialist Neurosurgery 05/02/23 June Denton PA-C 175 [facility] [address] [place] [address] Specialist Neurosurgery 05/02/23 Nichole Otto MD 175 [facility] 300 [place] [address] Surgeon Neurosurgery 05/02/23 documented as of this encounter
--- OUTSIDE RECORDS SUMMARY | 2024-05-26 07:59 | XMS_ITS | Encounter Summary ---
Author Organization [facility] Address [address] [place] [address] Care Team Providers Care Security Patrol Driver Name Role Phone Riccardo Robledo MD Primary Care Provider Olga Ochoa MD Unavailable Mina Dominguez PA-C Unavailable Addison Winslow PA-C Unavailable [phone] Juen Denton-C Unavailable Nichole Otto MD Unavailable [phone] Reason for Visit * Reason Onset Date Comments Error 06/05/2021 Encounter Details Date Type Department Care Team Description 06/05/2021 Telephone Adult Medicine - [place] [address] [place], [place] [phone] Riccardo Robledo MD [address] [place], [place] [phone] Error Social History Tobacco Use Types Packs/Day [...] encounter Miscellaneous Notes * Telephone Encounter - Karen Guido - 06/05/2021 9:08 AM EDT documented in this encounter Plan of Treatment Not on file documented as of this encounter Visit Diagnoses Not on filedocumented in this encounter Care Teams Security Patrol Driver Relationship Specialty Start Date End Date Riccardo Robledo MD [address] [place] [address] PCP - General Internal Medicine 12/28/19 Olga Ochoa MD [address] [place] [address] Specialist Lung Cancer Manager Sales Training 03/07/21 Mina Dominguez PA-C 299 [facility] [address] [place] [address] Specialist Thoracic Surgery 04/29/22 Addison Winslow PA-C 175 [facility] 300 [place] [address] Specialist Neurosurgery 05/02/23 June Denton PA-C 175 [facility] 300 [place] [address] Specialist Neurosurgery 05/02/23 Nichole Otto MD 175 [facility] 300 [place] [address] Surgeon Neurosurgery 05/02/23 documented as of this encounter
--- OUTSIDE RECORDS SUMMARY | 2024-05-26 07:59 | XMS_ITS | Encounter Summary ---
Author Organization [facility] Address [address] [place] [address] Care Team Providers Care Posting Specialist Name Role Phone Riccardo Robledo MD Primary Care Provider [phone] Olga Ochoa MD Unavailable Mina Dominguez PA-C Unavailable Addison Winslow PA-C Unavailable [phone] June Denton-C Unavailable [phone] Nichole Otto MD Unavailable [phone] Reason for Referral * Radiology Services (Routine) - Closed Specialty Diagnoses / Procedures Referred By Contjayce t Referred To Contact Radiology Diagnoses Pain of left upper extremity Procedures CAT SCAN OF ARM NO CONTRAST Riccardo Robledo, [address] [place] [address] [place]/[address] [address] Referral ID Status Reason Start Date Expiration Date Visits Re quested Visits Authorized [id number] Closed 09/10/2023 09/09/2024 1 1 Reason for Visit * Reason Onset Date Comments Testing 09/10/2023 Encounter Details Date Type Department Care Team Description 09/10/2023 Telephone Adult Medicine - [place] [address] [place] [address] Riccardo Robledo MD [address] [place] [address] Testing Social History Tobacco Use Types Packs/Day Years [...] Telephone Encounter - Ree Beatty M.A. - 09/10/2023 1:28 PM EDT Patient advised of this message, he verbalized understanding. * Telephone Encounter - Riccardo Robledo MD - 09/10/2023 1:13 PM EDT Noted. He should try and reach out to his orthopedic surgeon as recommended by the ER doctor * Telephone Encounter - Ree Beatty M.A. - 09/10/2023 1:06 PM EDT Patient advised. He also wanted to let Dr. Swanson know he went to [facility] this am. He had a Toradol injection. I printed out the records and gave them to Dr. Swanson for review. In the meantime, I advised the patient we need to wait for CT results or he should return to the ER for any increasedpain. * Telephone Encounter - Riccardo Robledo MD - 09/10/2023 11:06 AM EDT Thank you order placed * Telephone Encounter - Ainsley Hayes M.A. - 09/10/2023 10:[address] Swanson, Patient is enduring a lot of pain and he would like an order for CT. Order pended for review. Pt calling to complain about his arm - pt has a xray on this And doesn't feel this will tell anything- pt feels he has a tear in his arm - woke up this morning with stabbing pain -pt asking for a catscan on his left arm * Telephone Encounter - Carole Maria - 09/10/2023 8:44 AM EDT Pt calling to complain about his arm - pt has a xray on this And doesn't feel this will tell anything- pt feels he has a tear in his arm - woke up this morning with stabbing pain -pt asking for a catscan on his left arm documented in this encounter Plan of Treatment Not on file documented as of this encounter Results * CAT SCAN OF ARM NO CONTRAST (09/15/2023 8:42 AM EDT) 09/15/2023 8:55 AM EDT Impressions [facility] OTHER EXTERNAL - 09/15/2023 9:57 AM EDT IMPRESSION: No evidence of an acute fracture or dislocation. ??Postsurgical changes. ??Small amount of fluid in the subacromial/subdeltoid bursa which could indicate bursitis. ??Probable subtle calcific tendinopathy/calcific bursitis. POS - [id number] Narrative [facility]AR[facility] OTHER EXTERNAL - 09/15/2023 9:57 AM EDT EXAM: CT left shoulder HISTORY: Pain of left upper extremity. ??Upper arm trauma. History of left shoulder surgery 07/01/2022 with subacromial decompression, distal clavicle resection, and rotator cuff repair and augmentation. ??History of left shoulder revision rotator cuff repair and augmentation 06/12/2023. COMPARISON: ??None, correlation with shoulder radiography 09/02/2023, 06/25/2023, cervical spine MRI 04/10/2023 TECHNIQUE: Multidetector axial CT obtained through the left shoulder without IV contrast. Sagittal and coronal reformatted images obtained. ??Automated exposure control utilized. TOTAL CTDIvol: 40.75 mGy FINDINGS: No evidence of an acute fracture or dislocation. ??Adjacent tunneling defects in the anterior superior humeral head from prior rotator cuff repair. ??Subtle bony irregularity involving the distal clavicle and subacromial region from postsurgical change. ??Minimal degenerative changes at the glenohumeral joint. ??Small amount of fluid in the subacromial/subdeltoid bursa which could indicate bursitis. Limited assessment of the rotator cuff tendons with CT. ??Faint soft tissue calcification in the region of the supraspinatus tendon and subacromial/subdeltoid bursa which could represent calcific tendinopathy or calcific bursitis or possibly postsurgical change.. Nonspecific tiny calcification medial to the bicipital groove. Partially imaged changes of cervical spine fusion at C5-6 with an intervertebral disc prosthesis and bony fusion across the imaged disc space. ??Partially imaged degenerative changes in the lower cervical spine. ??Emphysematous changes again noted in the partially imaged left lung as on chest CT 06/21/2021. ?? Procedure Note Savannah Schultz MD - 09/15/2023 EXAM: CT left shoulder HISTORY: Pain of left upper extremity. Upper arm trauma. History of leftshoulder surgery 07/01/2022 with subacromial decompression, distal clavicle resection, androtator cuff repair and augmentation. History of left shoulder revision rotator cuff repairand augmentation 06/12/2023. COMPARISON: None, correlation with shoulder radiography 09/02/2023,06/25/2023, cervical spine MRI 04/10/2023 TECHNIQUE: Multidetector axial CT obtained through the left shoulderwithout IV contrast. Sagittal and coronal reformatted images obtained. Automated exposurecontrol utilized. TOTAL CTDIvol: 40.75 mGy FINDINGS: No evidence of an acute fracture or dislocation. Adjacent tunnelingdefects in the anterior superior humeral head from prior rotator cuff repair. Subtle bonyirregularity involving the distal clavicle and subacromial region from postsurgical change. Minimaldegenerative changes at the glenohumeral joint. Small amount of fluid in thesubacromial/subdeltoid bursa which could indicate bursitis. Limited assessment of the rotator cuff tendonswith CT. Faint soft tissue calcification in the region of the supraspinatus tendon andsubacromial/subdeltoid bursa which could represent calcific tendinopathy or calcific bursitis orpossibly postsurgical change.. Nonspecific tiny calcification medial to the bicipital groove. Partially imaged changes of cervical spine fusion at C5-6 with anintervertebral disc prosthesis and bony fusion across the imaged disc space. Partially imageddegenerative changes in the lower cervical spine. Emphysematous changes again noted in thepartially imaged left lung as on chest CT 06/21/2021. IMPRESSION IMPRESSION: No evidence of an acute fracture or dislocation. Postsurgical changes.Small amount of fluid in the subacromial/subdeltoid bursa which could indicate bursitis.Probable subtle calcific tendinopathy/calcific bursitis. POS - [id number] Riccardo Robledo MD CT SCANS [place] OTHER EXTERNAL documented in this encounter Visit Diagnoses Diagnosis Pain of left upper extremity- Primary Pain of left upper extremity documented in this encounter Care Teams Posting Specialist Relationship Specialty Start Date End Date Riccardo Robledo MD [address] [place] [address] PCP - General Internal Medicine 12/28/19 Olga Ochoa MD [address] [place] [address] Specialist Lung Cancer Feather Sawyer 03/07/21 Mina Dominguez PA-C 299 [facility] [address] [place] [phone] Specialist Thoracic Surgery 04/29/22 Addison Winslow PA-C 175 [facility] [address] [place] [address] Specialist Neurosurgery 05/02/23 June Denton PA-C 175 [facility] [address] [place] [address] Specialist Neurosurgery 05/02/23 Nichole Otto MD 175 [facility] 300 [place] [address] Surgeon Neurosurgery 05/02/23 documented as of this encounter
--- OUTSIDE RECORDS SUMMARY | 2024-05-26 07:59 | XMS_ITS | Encounter Summary ---
Author Organization [facility] Address [address] [place] [address] Care Team Providers Care Potato Chip Sacking Machine Operator Name Role Phone Riccardo Robledo MD Primary Care Provider Olga Ochoa MD Unavailable Mina Dominguez PA-C Unavailable [phone] Addison Winslow PA-C Unavailable June Denton PA-C Unavailable [phone] Nichole Otto MD Unavailable [phone] Encounter Details Date Type Department Care Team Description 07/01/2022 Evs Tech Report Medical Records [address] [place] [address] Center, [facility] [address] [place] [address] Social History Tobacco Use Types Packs/Day Years [...] suspected to have Coronavirus/COVID-19? No / Unsure 06/24/2022 10:14 AM EDT documented as of this encounter Plan of Treatment Not on file documented as of this encounter Visit Diagnoses Not on filedocumented in this encounter Care Teams Potato Chip Sacking Machine Operator Relationship Specialty Start Date End Date Riccardo Robledo MD [address] [place] [address] PCP - General Internal Medicine 12/28/19 Olga Ochoa MD [address] [place] [address] Specialist Lung Cancer Silo Man 03/07/21 Mina Dominguez PA-C 299 [facility] [address] [place] [phone] Specialist Thoracic Surgery 04/29/22 Addison Winslow PA-C 175 [facility] [address] [place] [address] Specialist Neurosurgery 05/02/23 June Denton PA-C 175 [facility] 300 [place] [address] Specialist Neurosurgery 05/02/23 Nichole Otto MD [address] [address] Surgeon Neurosurgery 05/02/23 documented as of this encounter
--- OUTSIDE RECORDS SUMMARY | 2024-05-26 07:59 | XMS_ITS | Encounter Summary ---
Author Organization [facility] Address [address] [place] [address] Care Team Providers Care Flat Lock Operator Name Role Phone Riccardo Robledo MD Primary Care Provider Olga Ochoa MD Unavailable Mina Dominguez PA-C Unavailable [phone] Addison Winslow PA-C Unavailable June Denton-C Unavailable Nichole Otto MD Unavailable [phone] Reason for Visit * Reason Onset Date Comments Letter 05/10/2020 Encounter Details Date Type Department Care Team Description 05/10/2020 Telephone Adult Medicine - [place] [address] [place], [place] [id number] Riccardo Robledo MD [address] [place] [address] Letter Social History Tobacco Use Types Packs/Day [...] Telephone Encounter - Riccardo Robledo MD - 05/15/2020 3:04 PM EST Will sign x-ray in the morning * Telephone Encounter - Kenzie Beckett M.A. - 05/15/2020 1:09 PM EST Pt looking for letter that states he has lung emphysema . Letter pended for your review. * Telephone Encounter - Mily Amador - 05/11/2020 1:22 PM EST Pt picked letter up. Letter was DX list. Pt not looking for a list of his diagnosis. Pt is asking for a letter to his employer stating that he has Emphysema lung. No other diagnosis need to be listed. Please call pt when letter is ready to be picked up. * Telephone Encounter - Ree Beatty M.A. - 05/10/2020 4:05 PM EST Letter in patient product picker. Notified patient this was done. * Telephone Encounter - Hood Rodas - 05/10/2020 2:14 PM EST Pt states he would like to letter of overall dx Printed In ppu documented in this encounter Plan of Treatment Not on file documented as of this encounter Visit Diagnoses Not on filedocumented in this encounter Care Teams Flat Lock Operator Relationship Specialty Start Date End Date Riccardo Rolbedo MD [address] [place] [address] PCP - General Internal Medicine 12/28/19 Olga Ochoa MD [address] [place] [address] Specialist Lung Cancer Animal Cytologist 03/07/21 Mina Dominguez PA-C 299 [facility] [address] [place] [address] Specialist Thoracic Surgery 04/29/22 Addison Winslow PA-C 175 [facility] [address] [place] [address] Specialist Neurosurgery 05/02/23 June Denton PA-C 175 [facility] [address] [place] [address] Specialist Neurosurgery 05/02/23 Nichole Otto MD 175 [facility] [address] [place] [address] Surgeon Neurosurgery 05/02/23 documented as of this encounter
--- OUTSIDE RECORDS SUMMARY | 2024-05-26 07:59 | XMS_ITS | Encounter Summary ---
Author Organization [facility] Address [address] [place] [address] Care Team Providers Care Underground Mine Superintendent Name Role Phone Riccardo Robledo MD Primary Care Provider [phone] Olga Ochoa MD Unavailable Mina Dominguez PA-C Unavailable Addison Winslow PA-C Unavailable June Denton PA-C Unavailable [phone] Nichole Otto MD Unavailable [phone] Encounter Details Date Type Department Care Team Description 06/29/2023 Pt. Non Urgent Medic al Question Adult Medicine - [address] [address] Logan Romero PA-C [address] [place] [address] Social History Tobacco Use Types Packs/Day Years [...] Telephone Encounter - Mary Austin L.P.N. - 06/30/2023 8:06 AM EDT From: Jv Monroy To: Danisha Romero Sent: 06/29/2023 10:58 PM EDT Subject: Blood work Byron could you tell me my results of my blood work that came in please Thank You HenryGSantaJr documented in this encounter Plan of Treatment Not on file documented as of this encounter Visit Diagnoses Not on filedocumented in this encounter Care Teams Underground Mine Superintendent Relationship Specialty Start Date End Date Riccardo Robledo MD [address] [place] [address] PCP - General Internal Medicine 12/28/19 Olga Ochoa MD 230 [place] [address] Specialist Lung Cancer Custodial Aide 03/07/21 Mina Dominguez PA-C [address] [address] Specialist Thoracic Surgery 04/29/22 Addison Winslow PA-C 175 [facility] 300 [place] [address] Specialist Neurosurgery 05/02/23 June Denton PA-C [address] [address] Specialist Neurosurgery 05/02/23 Nichole Otto MD 175 [facility] 300 [place] [address] Surgeon Neurosurgery 05/02/23 documented as of this encounter
--- OUTSIDE RECORDS SUMMARY | 2024-05-26 07:59 | XMS_ITS | Encounter Summary ---
Author Organization [facility] Address [address] [place] [address] Care Team Providers Care Parish Nurse Name Role Phone Riccardo Robledo MD Primary Care Provider Olga Ochoa MD Unavailable Mina Dominguez-C Unavailable [phone] Addison Winslow-C Unavailable [phone] June Denton PA-C Unavailable Nichole Otto MD Unavailable [phone] Encounter Details Date Type Department Care Team Description 07/04/2023 Pt. Non Urgent Medic al Question Adult Medicine - [place] [address] [place] [address] Riccardo Robledo MD [address] [place] [address] Social History Tobacco Use Types Packs/Day Years [...] on filedocumented in this encounter Care Teams Parish Nurse Relationship Specialty Start Date End Date Riccardo Robledo MD [address] [place] [address] PCP - General Internal Medicine 12/28/19 Olga Ochoa MD [address] [place] [address] Specialist Lung Cancer Thread Checker 03/07/21 Mina Dominguez PA-C 299 [facility] [address] [place] [phone] Specialist Thoracic Surgery 04/29/22 Addison Winslow PA-C 175 [facility] 300 [place] [address] Specialist Neurosurgery 05/02/23 June Denton PA-C 175 [facility] 300 [place] [address] Specialist Neurosurgery 05/02/23 Nichole Otto MD 175 [facility] 300 [place] [address] Surgeon Neurosurgery 05/02/23 documented as of this encounter
--- OUTSIDE RECORDS SUMMARY | 2024-05-26 07:59 | XMS_ITS | Encounter Summary ---
Author Organization [facility] Address [address] [place] [address] Care Team Providers Care Integrity Assessor Name Role Phone Riccardo Robledo MD Primary Care Provider [phone] Olga Ochoa MD Unavailable Mina Dominguez PA-C Unavailable Addison Winslow PA-C Unavailable June Denton PA-C Unavailable Nichole Otto MD Unavailable [phone] Encounter Details Date Type Department Care Team Description 05/22/2020 Orders Only Medical Records [address] [place] [address] Mina Eckert, DPM [address] [address] Social History Tobacco Use Types Packs/Day Years [...] have Coronavirus / COVID-19? No / Unsure 05/22/2020 9:33 AM EST documented as of this encounter Plan of Treatment Not on file documented as of this encounter Procedures Procedure Name Priority Date/Time Associated Diagnosis Comments OUTSIDE PATHOLOGY Routine 03/21/2020 documented in this encounter Results * OUTSIDE PATHOLOGY (03/21/2020) Mina Eckert DPDanisha OUTSIDE LAB documented in this encounter Visit Diagnoses Not on filedocumented in this encounter Care Teams Integrity Assessor Relationship Specialty Start Date End Date Riccardo Robledo MD [address] [place] [address] PCP - General Internal Medicine 12/28/19 Olga Ochoa MD 230 [place] [address] Specialist Lung Cancer Phlebotomist Supervisor/Instructor 03/07/21 Mina Dominguez PA-C [address] [phone] Specialist Thoracic Surgery 04/29/22 Addison Winslow PA-C 175 [facility] [address] [place] [address] Specialist Neurosurgery 05/02/23 June Denton PA-C [address] [address] Specialist Neurosurgery 05/02/23 Nichole Otto MD [address] [address] Surgeon Neurosurgery 05/02/23 documented as of this encounter
--- OUTSIDE RECORDS SUMMARY | 2024-05-26 07:59 | XMS_ITS | Encounter Summary ---
Author Organization [facility] Address [address] [place] [address] Care Team Providers Care Visual Training Aide Name Role Phone iRccardo Robledo MD Primary Care Provider [phone] Olga Ochoa MD Unavailable Mina Dominguez PA-C Unavailable [phone] Addison Winslow PA-C Unavailable June Denton PA-C Unavailable [phone] Nichole Otto MD Unavailable [phone] Encounter Details Date Type Department Care Team Description 08/13/2023 Pt. Non Urgent Medical Question [facility] 175 [facility] [address] [place] [address] Akin Delacruz MD 175 [facility] [address] [place], [place] [phone] Social History Tobacco Use Types Packs/Day Years [...] Miscellaneous Notes * Telephone Encounter - Carole Reynaga PA-C - 08/13/2023 3:16 PM EDT Please call patient and offer appointment Friday at 11:30 am Thank you documented in this encounter Plan of Treatment Not on file documented as of this encounter Visit Diagnoses Not on filedocumented in this encounter Care Teams Visual Training Aide Relationship Specialty Start Date End Date Riccardo Robledo MD 230 [place] [address] PCP - General Internal Medicine 12/28/19 Olga Ochoa MD 230 [place] [address] Specialist Lung Cancer Corridor Redevelopment Manager 03/07/21 Mina Dominguez PA-C [address] [address] Specialist Thoracic Surgery 04/29/22 Addison Winslow PA-C 175 [facility] 300 [place] [address] Specialist Neurosurgery 05/02/23 June Denton PA-C [address] [address] Specialist Neurosurgery 05/02/23 Nichole Otto MD [address] [address] Surgeon Neurosurgery 05/02/23 documented as of this encounter
--- OUTSIDE RECORDS SUMMARY | 2024-05-26 07:59 | XMS_ITS | Encounter Summary ---
Author Organization [facility] Address [address] [place] [address] Care Team Providers Care Washer Machine Name Role Phone Riccardo Robledo MD Primary Care Provider Olga Ochoa MD Unavailable Mina Dominguez PA-C Unavailable [phone] Addison Winslow PA-C Unavailable June Denton-Will Unavailable [phone] Nichole Otto MD Unavailable [phone] Reason for Visit * Reason Onset Date Comments refill request 08/29/2023 Encounter Details Date Type Department Care Team Description 08/29/2023 Refill Adult Medicine - [place] [address] [place], [place] [phone] Riccardo Robledo MD 230 [place] [address] refill request Social History Tobacco Use Types [...] Encounter - Mireya Figueroa M.A. - 08/29/2023 1:16 PM EDT Images from the original note were not included. Controlled substance contract and last issue date of medication reviewed. Patient is due for medication. Medication request (s) pended for review Last appt- 08/20/23 Next appt- 11/20/23 Last appt w/ PCP- 05/29/23 Lab Results Component Value Date URBENZO NONE DETECTED 05/14/2023 UROPIATES POSITIVE 05/14/2023 UROXYCODONE POSITIVE 05/14/2023 URBARBITUATE NONE DETECTED 05/14/2023 PAINAMPHETAM NONE DETECTED 05/14/2023 PAINCOCAINE NONE DETECTED 05/14/2023 PAINCANNABIN NONE DETECTED 05/14/2023 HEEL SANDER * Telephone Encounter - Gordon Melara - 08/29/2023 12:10 PM EDT Patient would like script to be: E-PRESCRIBED/FAXED TO PHARMACY WHEN WAS THE PATIENT'S LAST APPOINTMENT IN ADULT MEDICINE? 08/20/23 WHEN WAS THE LAST TIME THE PATIENT SAW THEIR PCP? 05/29/23 Does patient have an upcoming appointment? Yes 12/11/23 (THE MEDICATION REQUESTED IS ON THE MED [...] insurance carrier is: [place] / [place] / Product Type: MEDICARE [id number] documented in this encounter Plan of Treatment Not on file documented as of this encounter Visit Diagnoses Not on filedocumented in this encounter Care Teams Washer Machine Relationship Specialty Start Date End Date Riccardo Robledo MD 230 [place] [address] PCP - General Internal Medicine 12/28/19 Olga Ochoa MD 230 [place] [address] Specialist Lung Cancer Medical Social Worker 03/07/21 Mina Dominguez PA-C [address] [phone] Specialist Thoracic Surgery 04/29/22 Addison Winslow PA-C 175 [facility] [address] [place] [address] Specialist Neurosurgery 05/02/23 June Denton PA-C 175 [facility] 300 [place] [address] Specialist Neurosurgery 05/02/23 Nichole Otto MD 175 [facility] 300 [place] [address] Surgeon Neurosurgery 05/02/23 documented as of this encounter
--- OUTSIDE RECORDS SUMMARY | 2024-05-26 07:59 | XMS_ITS | Encounter Summary ---
Author Organization [facility] Address [address] [place] [address] Care Team Providers Care Segment Assembler Name Role Phone Riccardo Robledo MD Primary Care Provider Olga Ochoa MD Unavailable Mina Dominguez PA-C Unavailable Addison Winslow PA-C Unavailable [phone] June Denton-C Unavailable [phone] Nichole Otto MD Unavailable [phone] Reason for Visit * Reason Onset Date Comments TEST RESULTS 09/03/2023 Encounter Details Date Type Department Care Team Description 09/03/2023 Telephone Adult Medicine - [place] [address] [place], [place] [phone] Riccardo Robledo MD [address] [place], [place] [phone] TEST RESULTS Social History Tobacco Use Types Packs/Day Years [...] Telephone Encounter - Kenzie Beckett M.A. - 09/03/2023 10:14 AM EDT Pt calling for results of his shoulder that are final in chart. * Telephone Encounter - Carole Maria - 09/03/2023 9:21 AM EDT Pt needs his test results explained to him on his shoulder - please advise documented in this encounter Plan of Treatment Not on file documented as of this encounter Visit Diagnoses Not on filedocumented in this encounter Care Teams Segment Assembler Relationship Specialty Start Date End Date Riccardo Robledo MD [address] [place] [address] PCP - General Internal Medicine 12/28/19 Olga Ochoa MD [address] [place] [address] Specialist Lung Cancer Audio Video Repairer 03/07/21 Mina Dominguez PA-C 299 [facility] [address] [place] [address] Specialist Thoracic Surgery 04/29/22 Addison Winslow PA-C 175 [facility] 300 [place] [address] Specialist Neurosurgery 05/02/23 June Denton PA-C 175 [facility] [address] [place] [address] Specialist Neurosurgery 05/02/23 Nichole Otto MD [address] [address] Surgeon Neurosurgery 05/02/23 documented as of this encounter
--- OUTSIDE RECORDS SUMMARY | 2024-05-26 07:59 | XMS_ITS | Encounter Summary ---
Author Organization [facility] Address [address] [place] [address] Care Team Providers Care Manager Php Name Role Phone Riccardo Robledo MD Primary Care Provider [phone] Olga Ochoa MD Unavailable Mina Dominguez PA-C Unavailable [phone] Addison Winslow PA-C Unavailable June Denton-Will Unavailable [phone] Nichole Otto MD Unavailable [phone] Encounter Details Date Type Department Care Team Description 06/27/2023 Telephone Adult Medicine - [place] [address] [place], [place] [phone] Riccardo Robledo MD [address] [place], [place] [phone] Social History Tobacco Use Types Packs/Day Years [...] encounter Miscellaneous Notes * Telephone Encounter - Brandy Phillips M.A. - 07/28/2023 4:18 PM EDT Done under wrong insurance Brandy Phillips Prior Auth Dep Ext [id number] * Telephone Encounter - Pallavi Finley M.A. - 06/27/2023 2:51 PM EDT Prior authorization done over the phone with Emelia from [employer] for the oxycodone solution Dx codes G89.4 Chronic pain syndrome M54.12 cervical radiculopathy M25.512 left shoulder pain Needs liquid Because of K22.2 Continuation of therapy \ Trials Acetaminophen Morphine sulfate Naproxen Meloxicam Ibuprofen Tizanidine Lyrica Celebrex diclofenac documented in this encounter Plan of Treatment Not on file documented as of this encounter Visit Diagnoses Not on filedocumented in this encounter Care Teams Manager Php Relationship Specialty Start Date End Date Riccardo Robledo MD [address] [place] [address] PCP - General Internal Medicine 12/28/19 Olga Ochoa MD [address] [place] [address] Specialist Lung Cancer Public Address System Mechanic 03/07/21 Mina Dominguez PA-C 299 [facility] [address] [place] [address] Specialist Thoracic Surgery 04/29/22 Addison Winslow PA-C 175 [facility] [address] [place] [address] Specialist Neurosurgery 05/02/23 June Denton PA-C [address] [address] Specialist Neurosurgery 05/02/23 Nichole Otto MD [address] [address] Surgeon Neurosurgery 05/02/23 documented as of this encounter
--- OUTSIDE RECORDS SUMMARY | 2024-05-26 07:59 | XMS_ITS | Encounter Summary ---
Author Organization [facility] Address [address] [place] [address] Care Team Providers Care Child Care Attendant School Name Role Phone Riccardo Robledo MD Primary Care Provider [phone] Olga Ochoa MD Unavailable Mina Dominguez-C Unavailable Addison Winslow-C Unavailable June Denton PA-C Unavailable Nichole Otto MD Unavailable [phone] Encounter Details Date Type Department Care Team Description 04/18/2022 Pt. Non Urgent Medic al Question Adult Medicine - [place] [address] [place] [address] Riccardo Robledo MD [address] [place] [address] Social History Tobacco Use Types Packs/Day Years [...] Miscellaneous Notes * Telephone Encounter - Mary HuangPLatishaNLatisha - 04/18/2022 8:34 AM EST From: Jv Monroy To: Will Robledo Sent: 04/18/2022 7:42 AM EST Subject: Blood pressure On 04/18/22 Reading Time 736 am [id number] 55 next [id number] Pulse 68 [id number] documented in this encounter Plan of Treatment Not on file documented as of this encounter Visit Diagnoses Not on filedocumented in this encounter Care Teams Child Care Attendant School Relationship Specialty Start Date End Date Riccardo Robledo MD [address] [place] [address] PCP - General Internal Medicine 12/28/19 Olga Ochoa MD [address] [place] [address] Specialist Lung Cancer Channel Director 03/07/21 Mina Dominguez PA-C 299 [facility] [address] [place] [address] Specialist Thoracic Surgery 04/29/22 Addison Winslow PA-C 175 [facility] [address] [place] [address] Specialist Neurosurgery 05/02/23 June Denton PA-C 175 [facility] [address] [place] [address] Specialist Neurosurgery 05/02/23 Nichole Otto MD 175 [facility] [address] [place] [address] Surgeon Neurosurgery 05/02/23 documented as of this encounter
--- OUTSIDE RECORDS SUMMARY | 2024-05-26 07:59 | XMS_ITS | Encounter Summary ---
Author Organization [facility] Address [address] [place] [address] Care Team Providers Care Pill Machine Operator Name Role Phone Riccardo Robledo MD Primary Care Provider [phone] Olga Ochoa MD Unavailable Mina Dominguez PA-C Unavailable Addison Winslow PA-C Unavailable June Denton PA-C Unavailable Nichole Otto MD Unavailable [phone] Reason for Visit * Reason Onset Date Comments Provider Call Back 09/27/2022 Encounter Details Date Type Department Care Team Description 09/27/2022 Pt. Non Urgent Medic al Question Adult Medicine - [address] [address] Logan Romero PA-C [address] [place] [address] Social History Tobacco Use Types Packs/Day Years [...] Encounter - Mireya Figueroa M.A. - 09/27/2022 3:34 PM EDTFrom: Jv Monroy To: Danisha Romero Sent: 09/27/2022 2:56 PM EDT Subject: Blood test Could you please call me as soon as possible and let me know about my blood work results Thank you HenryGSantaJr documented in this encounter Plan of Treatment Not on file documented as of this encounter Visit Diagnoses Not on filedocumented in this encounter Care Teams Pill Machine Operator Relationship Specialty Start Date End Date Riccardo Robledo MD 230 [place] [address] PCP - General Internal Medicine 12/28/19 Olga Ochoa MD 230 [place] [address] Specialist Lung Cancer Brush Finisher 03/07/21 Mina Dominguez PA-C [address] [address] Specialist Thoracic Surgery 04/29/22 Addison Winslow PA-C 175 [facility] [address] [place] [address] Specialist Neurosurgery 05/02/23 June Denton PA-C [address] [address] Specialist Neurosurgery 05/02/23 Nichole Otto MD [address] [address] Surgeon Neurosurgery 05/02/23 documented as of this encounter
--- OUTSIDE RECORDS SUMMARY | 2024-05-26 07:59 | XMS_ITS | Encounter Summary ---
Author Organization [facility] Address [address] [place] [address] Care Team Providers Care Pattern Hanger Name Role Phone Riccardo Robledo MD Primary Care Provider [phone] Olga Ochoa MD Unavailable Mina Dominguez PA-C Unavailable [phone] Addison Winslow PA-C Unavailable [phone] June Denton PA-C Unavailable Nichole Otto MD Unavailable [phone] Encounter Details Date Type Department Care Team Description 06/27/2023 Orders Only [facility] Lung Screening Program [address] [phone] Olga Ochoa MD [address] [phone] History of tobacco abuse Social History Tobacco Use Types Packs/Day Years [...] Procedure Name Priority Date/Time Associated Diagnosis Comments CT LOW DOSE LUNG SCREEN ANNUAL Routine 06/27/2023 History of tobacco abuse documented in this encounter Results * CT LOW DOSE LUNG SCREEN ANNUAL (06/27/2023) 06/27/[address] SCANS documented in this encounter Visit Diagnoses Diagnosis History of tobacco abuse Personal history of tobacco use, presenting hazards to health documented in this encounter Care Teams Pattern Hanger Relationship Specialty Start Date End Date Riccardo Robledo MD [address] [place] [address] PCP - General Internal Medicine 12/28/19 Olga Ochoa MD [address] [place] [address] Specialist Lung Cancer Carton And Can Supply Supervisor 03/07/21 Mina Dominguez PA-C 299 [facility] 410 [place] [address] Specialist Thoracic Surgery 04/29/22 Addison Winslow PA-C 175 [facility] [address] [place] [address] Specialist Neurosurgery 05/02/23 June Denton PA-C 175 [facility] [address] [place] [address] Specialist Neurosurgery 05/02/23 Nichole Otto MD 175 [facility] [address] [place] [address] Surgeon Neurosurgery 05/02/23 documented as of this encounter
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
--- OUTSIDE RECORDS SUMMARY | 2024-05-26 07:59 | XMS_ITS | Encounter Summary ---
Author Organization [facility] Address [address] [place] [address] Care Team Providers Care Hourly Sign Language Interpreter Name Role Phone Riccardo Robledo MD Primary Care Provider [phone] Olga Ochoa MD Unavailable Mina Dominguez-C Unavailable [phone] Addison Winslow-C Unavailable June Denton-Will Unavailable [phone] Nichole Otto MD Unavailable [phone] Encounter Details Date Type Department Care Team Description 08/06/2022 Pt. Non Urgent Medic al Question Adult Medicine - [place] [address] [place] [address] Riccardo Robledo MD [address] [place] [address] Social History Tobacco Use Types Packs/Day Years [...] suspected to have Coronavirus/COVID-19? No / Unsure 07/09/2022 10:51 AM EDT documented as of this encounter Miscellaneous Notes * Telephone Encounter - Mary HuangP.NLatisha - 08/06/2022 3:44 PM EDT From: Jv Monroy To: Will Robledo Sent: 08/06/2022 1:55 PM EDT Subject: Mother Could you please tell DR Swanson to please send my mother script that she [facility] thank you [email or web address] documented in this encounter Plan of Treatment Not on file documented as of this encounter Visit Diagnoses Not on filedocumented in this encounter Care Teams Hourly Sign Language Interpreter Relationship Specialty Start Date End Date Riccardo Robledo MD [address] [place] [address] PCP - General Internal Medicine 12/28/19 Olga Ochoa MD [address] [place] [address] Specialist Lung Cancer Antichecking Iron Worker 03/07/21 Mina Dominguez PA-C [address] [address] Specialist Thoracic Surgery 04/29/22 Addison Winslow PA-C [address] [address] Specialist Neurosurgery 05/02/23 June Denton PA-C [address] [address] Specialist Neurosurgery 05/02/23 Nichole Otto MD [address] [address] Surgeon Neurosurgery 05/02/23 documented as of this encounter
--- OUTSIDE RECORDS SUMMARY | 2024-05-26 07:59 | XMS_ITS | Encounter Summary ---
Author Organization [facility] Address [address] [place] [address] Care Team Providers Care Product Marketing Manager Name Role Phone Riccardo Robledo MD Primary Care Provider [phone] Olga Ochoa MD Unavailable Mina Dominguez PA-C Unavailable Addison Winslow PA-C Unavailable June Denton PA-C Unavailable [phone] Nichole Otto MD Unavailable [phone] Reason for Visit * Reason Comments E-prescribe Rx Request Encounter Details Date Type Department Care Team Description 08/25/2023 Refill Adult Medicine - [address] [address] Logan Romero PA-C [address] [place] [id number] E-prescribe Rx Request Social History Tobacco Use [...] Miscellaneous Notes * Telephone Encounter - Audrey Mcclendon - 08/25/2023 3:23 PM EDT Refill on med list Last office visit : 08/20/23 Last time with PCP: 05/29/23 Next office visit : 11/20/23 documented in this encounter Plan of Treatment Not on file documented as of this encounter Visit Diagnoses Not on filedocumented in this encounter Care Teams Product Marketing Manager Relationship Specialty Start Date End Date Riccardo Robledo MD [address] [place] [address] PCP - General Internal Medicine 12/28/19 Olga Ochoa MD [address] [place] [address] Specialist Lung Cancer Sheet Fed Printer 03/07/21 Mina Dominguez PA-C 299 [facility] [address] [place] [address] Specialist Thoracic Surgery 04/29/22 Addison Winslow PA-C [address] [address] Specialist Neurosurgery 05/02/23 June Denton PA-C [address] [address] Specialist Neurosurgery 05/02/23 Nichole Otto MD 175 [facility] [address] [place] [address] Surgeon Neurosurgery 05/02/23 documented as of this encounter
--- OUTSIDE RECORDS SUMMARY | 2024-05-26 07:59 | XMS_ITS | Encounter Summary ---
Author Organization [facility] Address [address] [place] [address] Care Team Providers Care Boiler Blower Name Role Phone Riccardo Robledo MD Primary Care Provider [phone] Olga Ochoa MD Unavailable Mina Dominguez PA-C Unavailable Addison Winslow PA-C Unavailable [phone] June Denton PA-C Unavailable Nichole Otto MD Unavailable [phone] Encounter Details Date Type Department Care Team Description 06/06/2021 Refill [facility] Thoracic Surgery [place] 299 [facility] [address] [place] [phone] Mina Dominguez PA-C 299 [facility] [place] [address] [place] [phone] Social History Tobacco Use Types Packs/Day Years [...] encounter Miscellaneous Notes * Telephone Encounter - Suni Matthews M.A. - 06/06/2021 9:07 AM EDT Patient called for a refill for Oxycodone 10 mg. documented in this encounter Plan of Treatment Not on file documented as of this encounter Visit Diagnoses Not on filedocumented in this encounter Care Teams Boiler Blower Relationship Specialty Start Date End Date Riccardo Robledo MD [address] [place] [address] PCP - General Internal Medicine 12/28/19 Olga Ochoa MD [address] [place] [address] Specialist Lung Cancer Hot Car Operator 03/07/21 Mina Dominguez PA-C 299 [facility] [address] [place] [address] Specialist Thoracic Surgery 04/29/22 Addison Winslow PA-C 175 [facility] [address] [place] [address] Specialist Neurosurgery 05/02/23 June Denton PA-C 175 [facility] [address] [place] [address] Specialist Neurosurgery 05/02/23 Nichole Otto MD 175 [facility] [address] [place] [address] Surgeon Neurosurgery 05/02/23 documented as of this encounter
--- OUTSIDE RECORDS SUMMARY | 2024-05-26 07:59 | XMS_ITS | Encounter Summary ---
Author Organization [facility] Address [address] [place] [address] Care Team Providers Care Perfect Binder Feeder Offbearer Name Role Phone Riccardo Robledo MD Primary Care Provider Olga Ochoa MD Unavailable Mina Dominguez PA-C Unavailable [phone] Addison Winslow PA-C Unavailable [phone] June Denton PA-C Unavailable [phone] Nichole Otto MD Unavailable [phone] Encounter Details Date Type Department Care Team Description 05/25/2020 Benefits Sales Consultant Report Medical Records [address] [place] [address] Richie Alba MD, PHD Social History Tobacco [...] have Coronavirus / COVID-19? No / Unsure 05/26/2020 11:48 AM EST documented as of this encounter Plan of Treatment Not on file documented as of this encounter Visit Diagnoses Not on filedocumented in this encounter Care Teams Perfect Binder Feeder Offbearer Relationship Specialty Start Date End Date Riccardo Robledo MD [address] [place] [address] PCP - General Internal Medicine 12/28/19 Olga Ochoa MD [address] [place] [address] Specialist Lung Cancer Stone Repairer 03/07/21 Mina Dominguez PA-C 299 [facility] [address] [place] [phone] Specialist Thoracic Surgery 04/29/22 Addison Winslow PA-C 175 [facility] [address] [place] [address] Specialist Neurosurgery 05/02/23 June Denton PA-C 175 [facility] [address] [place] [address] Specialist Neurosurgery 05/02/23 Nichole Otto MD [address] [facility] [address] [place] [address] Surgeon Neurosurgery 05/02/23 documented as of this encounter
--- OUTSIDE RECORDS SUMMARY | 2024-05-26 07:59 | XMS_ITS | Encounter Summary ---
Author Organization Formerly [facility] Address [address] [place] [address] Care Team Providers Care Maintenance Person Name Role Phone Riccardo Robledo MD Primary Care Provider [phone] Olga Ochoa MD Unavailable Mina Dominguez PA-C Unavailable [phone] Addison Winslow PA-C Unavailable [phone] June Denton PA-C Unavailable [phone] Nichole Otto MD Unavailable [phone] Encounter Details Date Type Department Care Team Description 05/24/2020 Release of Information Medical Records [address] [place] [id number] Abstract, Provider Social History Tobacco Use Types [...] on filedocumented in this encounter Care Teams Maintenance Person Relationship Specialty Start Date End Date Riccardo Robledo MD [address] [place] [address] PCP - General Internal Medicine 12/28/19 Olga Ochoa MD [address] [place] [address] Specialist Lung Cancer Soldering Machine Operator Automatic 03/07/21 Mina Dominguez PA-C 299 [facility] 410 [place] [phone] Specialist Thoracic Surgery 04/29/22 Addison Winslow PA-C 175 [facility] [address] [place] [address] Specialist Neurosurgery 05/02/23 June Denton PA-C 175 [facility] 300 [place] [address] Specialist Neurosurgery 05/02/23 Nichole Otto MD 175 [facility] 300 [place] [address] Surgeon Neurosurgery 05/02/23 documented as of this encounter
--- OUTSIDE RECORDS SUMMARY | 2024-05-26 07:59 | XMS_ITS | Encounter Summary ---
Author Organization [facility] Address [address] [place] [address] Care Team Providers Care Public Welfare Worker Name Role Phone Mireya Robldeo MD Primary Care Prov ider Encounter Details Date Type Department Care Team ([facility] st Contact Info) Description 04/07/2024 Telephone Adult Medicine - [place] [address] [place] [address] Carole Connell [place] Social History Tobacco Use [...] 20 Mg Tab 84 28 [facility] [id number] [facility] (1964[facility] 0/0 90.00 [place] 03/12/2024 03/12/2024 03/12/2024 1 Oxycodone Hcl (Ir) 5 Mg Tablet 84 28 [place] [id number] [facility] (1964) 0/0 22.50 [place] 03/01/2024 03/01/2024 03/11/2024 1 Diazepam 5 Mg Tablet 56 28 [place] [id number] [facility] (1965) 0/2 1.00 LME [place] 02/25/2024 02/25/2024 02/25/2024 1 Oxycodone-Acetaminophen 5-325 56 28 [facility] [id number] [facility] (1964) 0/0 15.00 M[place] 02/13/2024 02/13/2024 02/13/2024 1 Oxycodone Hcl (Ir) 20 Mg Tab 84 28 [place] [id number] [facility] (1964) 0/0 90.00 M[place] 02/13/2024 02/13/2024 02/13/2024 1 Oxycontin Er 20 Mg Tablet 56 28 [place] [id number] [facility] (1964) 0/0 60.00 [place] 01/16/2024 01/16/2024 01/16/2024 1 Oxycodone Hcl (Ir) 20 Mg Tab 84 28 [place] [id number] [facility] (1964) 0/0 90.00 [place] 01/16/2024 01/16/2024 01/16/2024 1 Oxycontin Er 20 Mg Tablet 56 28 [place] [id number] [facility] (1964) 0/0 60.00 [place] 12/19/2023 12/19/2023 12/19/2023 1 Oxycodone Hcl (Ir) 20 Mg Tab 84 28 [facility] [id number] [facility] (1964) 0/0 90.00 [place] 12/19/2023 12/19/2023 12/19/2023 1 Oxycontin Er 20 Mg Tablet 56 28 [place] [facility] [id number] [facility] (1964) 0/0 60.00 [place] 11/21/2023 11/21/2023 11/21/2023 1 Oxycodone Hcl (Ir) 20 Mg Tab 84 28 [facility] [place] [id number] [facility] (1964) 0/0 90.00 [place] 11/21/2023 11/21/2023 11/21/2023 1 Oxycontin Er 20 Mg Tablet 56 28 [facility] [id number] [facility] (1964) 0/0 60.00 [place] 10/24/2023 10/24/2023 10/24/2023 1 Oxycodone Hcl (Ir) 20 Mg Tab 84 28 [place] [id number] [facility] (1964) 0/0 90.00 [place] 10/24/2023 10/24/2023 10/24/2023 1 Oxycontin Er 20 Mg Tablet 56 28 [facility] [id number] [facility] (1964) 0/0 60.00 [place] 09/26/2023 09/26/2023 09/26/2023 1 Oxycodone Hcl (Ir) 20 Mg Tab 84 28 [place] [id number] [facility] (1964) 0/0 90.00 MME [place] documented in this encounter Plan of Treatment Upcoming Encounters Date Type Department Care Team (Late st Contact Info) Description 05/26/2024 9:30 AM EST Office Visit Orthopedic Surgery [facility] 160 175 [facility] 160 [place] [address] Akin Delacruz MD [address] [address] 05/28/2024 9:30 AM EST Office Visit Adult Medicine [facility] [address] [place] [address] Logan Romero PA 230 [place] [address] 06/03/2024 9:45 AM EDT Office Visit Bariatric Surgery [facility] 175 [facility] 120 [place] [address] Sahara Villela MD 175 [facility] 120 [place] [address] 07/15/2024 10:15 AM EDT Office Visit Orthopedic Surgery [facility] 250 175 [facility] 250 [place] [phone] Mina Eckert DPDanisha [address] [address] 09/17/2024 11:00 AM EDT Office Visit Adult Medicine - [place] [address] [place] [address] Mireya Robledo MD 230 [place], [place] documented as of this encounter Visit Diagnoses Not on filedocumented in this encounter Care Teams Public Welfare Worker Relationship Specialty Start Date End Date Mireya Robledo MD 230 [place], [place] PCP - General Internal Medicine 02/02/24 documented as of this encounter
--- OUTSIDE RECORDS SUMMARY | 2024-05-26 08:00 | XMS_ITS | Encounter Summary ---
Author Organization [facility] Address [address] [place] [address] Care Team Providers Care Tool Technician Name Role Phone Riccardo Robledo MD Primary Care Provider [phone] Olga Ochoa MD Unavailable Mina Dominguez-C Unavailable Addison Winslow-C Unavailable June Denton-Will Unavailable [phone] Nichole Otto MD Unavailable [phone] Encounter Details Date Type Department Care Team Description 06/24/2022 Pt. Non Urgent Medic al Question Adult Medicine - [place] [address] [place] [address] Riccardo Robledo MD 230 [place] [address] Social History Tobacco Use Types Packs/Day Years [...] Telephone Encounter - Mireya Figueroa M.A. - 06/24/2022 1:50 PM EDTFrom: Jv Monroy To: Will Robledo Sent: 06/24/2022 1:13 PM EDT Subject: Meds DR Swanson did you send my script to [facility] pharmacy my both pain medicine please respond tanmay due forit documented in this encounter Plan of Treatment Not on file documented as of this encounter Visit Diagnoses Not on filedocumented in this encounter Care Teams Tool Technician Relationship Specialty Start Date End Date Riccardo Robledo MD [address] [place] [address] PCP - General Internal Medicine 12/28/19 Olga Ochoa MD 230 [place] [address] Specialist Lung Cancer Advertising Writer 03/07/21 Mina Dominguez PA-C [address] [address] Specialist Thoracic Surgery 04/29/22 Addison Winslow PA-C 175 [facility] 300 [place] [address] Specialist Neurosurgery 05/02/23 June Denton PA-C 175 [facility] 300 [place] [address] Specialist Neurosurgery 05/02/23 Nichole Otto MD [address] [address] Surgeon Neurosurgery 05/02/23 documented as of this encounter
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
--- OUTSIDE RECORDS SUMMARY | 2024-05-26 08:00 | XMS_ITS | Encounter Summary ---
Author Organization [facility] Address [address] [place] [address] Care Team Providers Care Legal Administrative Secretary Name Role Phone Riccardo Robledo MD Primary Care Provider [phone] Olga Ochoa MD Unavailable Mina Dominguez-C Unavailable [phone] Addison Winslow-Will Unavailable June Denton PA-C Unavailable [phone] Nichole Otto MD Unavailable [phone] Reason for Visit * Reason Onset Date Comments Medication 06/06/2021 Encounter Details Date Type Department Care Team Description 06/06/2021 Telephone [facility] Thoracic Surgery [place] 299 [facility] [address] [place] [phone] Olga Ochoa MD 299 [facility] 410 [place], [place] [phone] Medication Social History Tobacco Use Types Packs/Day Years [...] on filedocumented in this encounter Care Teams Legal Administrative Secretary Relationship Specialty Start Date End Date Riccardo Robledo MD 230 [place] [address] PCP - General Internal Medicine 12/28/19 Olga Ochoa MD [address] [place] [address] Specialist Lung Cancer Back Sewer 03/07/21 Mina Dominguez PA-C [address] [phone] Specialist Thoracic Surgery 04/29/22 Addison Winslow PA-C 175 [facility] [address] [place] [address] Specialist Neurosurgery 05/02/23 June Denton PA-C 175 [facility] [address] [place] [address] Specialist Neurosurgery 05/02/23 Nichole Otto MD 175 [facility] 300 [place] [address] Surgeon Neurosurgery 05/02/23 documented as of this encounter
--- OUTSIDE RECORDS SUMMARY | 2024-05-26 08:00 | XMS_ITS | Encounter Summary ---
Author Organization [facility] Address [address] [place] [address] Care Team Providers Care Vb Developer Name Role Phone Riccardo Robledo MD Primary Care Provider Olga Ochoa MD Unavailable Mina Dominguez PA-C Unavailable Addison Winslow PA-C Unavailable June Denton-C Unavailable Nichole Otto MD Unavailable [phone] Reason for Visit * Reason Onset Date Comments Provider Call Back 06/08/2021 Encounter Details Date Type Department Care Team Description 06/08/2021 Telephone Adult Medicine - [place] [address] [place], [place] [phone] Riccardo Robledo MD 230 [place] [address] Provider Call Back Social History Tobacco Use [...] Telephone Encounter - Riccardo Robledo MD - 06/08/2021 5:52 PM EDT Patient did not answer phone call * Telephone Encounter - Raymundo Stovall LPN - 06/08/2021 2:01 PM EDT Er note on desk * Telephone Encounter - Barbara Guerra - 06/08/2021 10:15 AM EDT Caller requesting call back from provider: Is the caller the patient? YES If caller is not the patient, what is the callers name? N/A Callers relationship to patient? N/A If person calling is not the patient themselves, is there a verbal release in FYI or permanent comments for this person: NO Reason for call back: Patient wants to know if the d/c summaires from his past ER visits have been reviewed and wants to make sure everything is ok Caller offered to speak with the nurse for assistance: NO Response: Patient offered to speak with nurse for assistance and patient agreed. Message forwarded to nurse. documented in this encounter Plan of Treatment Not on file documented as of this encounter Visit Diagnoses Not on filedocumented in this encounter Care Teams Vb Developer Relationship Specialty Start Date End Date Riccardo Robledo MD 230 [place] [address] PCP - General Internal Medicine 12/28/19 Olga Ochoa MD 230 [place] [address] Specialist Lung Cancer Merchandising Execution Manager 03/07/21 Mina Dominguez PA-C 299 [facility] 410 [place] [address] Specialist Thoracic Surgery 04/29/22 Addison Winslow PA-C 175 [facility] [address] [place] [address] Specialist Neurosurgery 05/02/23 June Denton PA-C 175 [facility] 300 [place], [place] [phone] Specialist Neurosurgery 05/02/23 Nichole Otto MD 175 [facility] 300 [place], [place] [phone] Surgeon Neurosurgery 05/02/23 documented as of this encounter
--- OUTSIDE RECORDS SUMMARY | 2024-05-26 08:00 | XMS_ITS | Encounter Summary ---
Author Organization [facility] Address [address] [place] [address] Care Team Providers Care Oxygen Therapy Technician Name Role Phone Mireya Robledo MD Primary Care Prov ider Reason for Visit * Reason Onset Date Comments Medication Problem 04/23/2024 Levalbuterol ( Xopenex ) HFA 45 MCG / ACT inhaler Prior Authorization 04/23/2024 Encounter Details Date Type Department Care Team ([facility] st Contact Info) Description 04/23/2024 Telephone Adult Medicine [address] [address] Mireya Figueroa [place] Medication Problem (Levalbuterol ( [...] as of this encounter Progress Notes * Pallavi Luna MA - 05/03/2024 8:49 AM EST Prior authorization for the levalbuterol was approved Approved from 04/16/24 until further notice Authorization case approval number [id number] Approval faxed to [facility] [phone] * Pallavi Luna MA - 04/30/2024 10:12 AM EST Prior authorization for the levalbuterol was completed today on [facility] Dx code J45.909 asthma Continuation of therapy Trails Albuterol ( ventolin ) * Mireya Figueroa MA - 04/23/2024 11:12 AM EST - Pt states he went to the pharmacy to fruit or nut picker a refill on the Levalbuterol inhaler and was advisedby the pharmacy this medication is no longer covered by his insurance. Asked pt if he contacted hisinsurance and pts states No. - Called [facility], [facility] Leval[facility]erol needs a Prior Authorization BIN # [id number] N # [id number] Group # [id number] ID # [id number] levalbuterol (XOPENEX HFA) 45 MCG/ACT inhaler Route: Inhale 1-2 Puffs into the lungs every 4 hours as needed (as needed). - Inhalation DISP 45 g documented in this encounter Plan of Treatment Upcoming Encounters Date Type Department Care Team (Late st Contact Info) Description 05/26/2024 9:30 AM EST Office Visit Orthopedic Surgery [facility] 160 175 [facility] 160 [place] [phone] Akni Delacruz MD 175 [facility] 160 [place] [address] 05/28/2024 9:30 AM EST Office Visit Adult Medicine - [place] [address] [place] [phone] Logan Romero PA 230 [place] [address] 06/03/2024 9:45 AM EDT Office Visit Bariatric Surgery - [place] 175 [facility] 120 [place] [phone] Sahara Villela MD 175 [facility] 120 [place] [address] 07/15/2024 10:15 AM EDT Office Visit Orthopedic Surgery - [place] 250 175 [facility] 250 [place] [address] Mina Eckert, DPM [address] [address] 09/17/2024 11:00 AM EDT Office Visit Adult Medicine - [place] [address] [place] [address] Mireya Robledo MD 230 [place] [address] documented as of this encounter Visit Diagnoses Not on filedocumented in this encounter Historical Medications * This list may reflect changes made after this encounter. levalbuterol (XOPENEX HFA) 45 mcg/actuation inhaler Inhale 1-2 puffs by mouth every 4 (four) hours if needed. 07/31/2023 levalbuterol (XOPENEX) 1.25 mg/3 mL nebulizer solution Inhale 1 ampule by mouth. added in this encounter Care Teams Oxygen Therapy Technician Relationship Specialty Start Date End Date Mireya Robledo MD 230 [place] [address] PCP - General Internal Medicine 02/02/24 documented as of this encounter
--- OUTSIDE RECORDS SUMMARY | 2024-05-26 08:00 | XMS_ITS | Encounter Summary ---
Author Organization [facility] Address [address] [place] [address] Care Team Providers Care Glue Reel Operator Name Role Phone Riccardo Robledo MD Primary Care Provider Olga Ochoa MD Unavailable Mina Dominguez PA-C Unavailable [phone] Addison Winslow PA-C Unavailable [phone] June Denton-Will Unavailable Nichole Otto MD Unavailable [phone] Reason for Visit * Reason Onset Date Comments refill request 06/13/2021 Encounter Details Date Type Department Care Team Description 06/13/2021 Telephone Adult Medicine - [place] [address] [place], [place] [phone] Riccardo Robledo MD [address] [place] [address] refill request Social History Tobacco Use Types [...] * Telephone Encounter - Carole Maria - 06/13/2021 9:31 AM EDT Refills Last office visit: 06/04/21 Last pcp: same Next office visit: guy call back documented in this encounter Plan of Treatment Not on file documented as of this encounter Visit Diagnoses Not on filedocumented in this encounter Care Teams Glue Reel Operator Relationship Specialty Start Date End Date Riccardo Robledo MD [address] [place] [address] PCP - General Internal Medicine 12/28/19 Olga Ochoa MD [address] [place] [address] Specialist Lung Cancer Senior Software Development Manager 03/07/21 Mina Dominguez PA-C 299 [facility] 410 [place] [address] Specialist Thoracic Surgery 04/29/22 Addison Winslow PA-C 175 [facility] [address] [place] [address] Specialist Neurosurgery 05/02/23 June Denton PA-C 175 [facility] [address] [place] [address] Specialist Neurosurgery 05/02/23 Nichole Otto MD 175 [facility] [address] [place] [address] Surgeon Neurosurgery 05/02/23 documented as of this encounter
--- OUTSIDE RECORDS SUMMARY | 2024-05-26 08:00 | XMS_ITS | Encounter Summary ---
Author Organization [facility] Address [address] [place] [address] Care Team Providers Care House Repairer Name Role Phone Riccardo Robledo MD Primary Care Provider [phone] Olga Ochoa MD Unavailable Mina Dominguez-C Unavailable Addison Winslow-C Unavailable June Denton PA-C Unavailable Nichole Otto MD Unavailable [phone] Encounter Details Date Type Department Care Team Description 06/13/2021 Orders Only Adult Medicine - [place] 230 [place], [place] [phone] Riccardo Robledo MD 230 [place], [place] [phone] Social History Tobacco Use Types Packs/Day Years [...] on filedocumented in this encounter Care Teams House Repairer Relationship Specialty Start Date End Date Riccardo Robledo MD 230 [place] [address] PCP - General Internal Medicine 12/28/19 Olga Ochoa MD 230 [place] [address] Specialist Lung Cancer Meat Processing Center Manager 03/07/21 Mina Dominguez PA-C 299 [facility] 410 [place] [address] Specialist Thoracic Surgery 04/29/22 Addison Winslow PA-C [address] [address] Specialist Neurosurgery 05/02/23 June Denton PA-C 175 [facility] 300 [place] [address] Specialist Neurosurgery 05/02/23 Nichole Otto MD [address] [address] Surgeon Neurosurgery 05/02/23 documented as of this encounter
--- OUTSIDE RECORDS SUMMARY | 2024-05-26 08:00 | XMS_ITS | Encounter Summary ---
Author Organization [facility] Address [address] [place] [address] Care Team Providers Care Livestock Breeder Name Role Phone Riccardo Robledo MD Primary Care Provider Olga Ochoa MD Unavailable Mina Dominguez PA-C Unavailable Addison Winslow PA-C Unavailable [phone] June Denton-C Unavailable Nichole Otto MD Unavailable [phone] Reason for Visit * Reason Onset Date Comments Blood Pressure Elevated 06/24/2022 Encounter Details Date Type Department Care Team Description 06/24/2022 Telephone Adult Medicine - [place] [address] [place], [place] [phone] Riccardo Robledo MD 230 [place] [address] Blood Pressure Elevated Social History Tobacco Use Types Packs/Day Years [...] Telephone Encounter - Lian Mcgrath L.P.N. - 06/24/2022 4:46 PM EDT Left msg on v.m. Advising him he can leave and you will call him * Telephone Encounter - Riccardo Robledo MD - 06/24/2022 4:42 PM EDT Yes okay to leave I will give him a call * Telephone Encounter - Danitza Mansfield - 06/24/2022 4:38 PM EDT Patient asking for a call back. sheng * Telephone Encounter - Lian Mcgrath L.P.N. - 06/24/2022 4:06 PM EDT Pt currently in Er Went there because of Elevated BP 174/82 BP 166/78 Waiting for them to tell him what EKG showed States he needs to go home ,he is having surgery on left arm tomorrow and needs to REST Does not feel he needs to be there Advised he can leave,no one is forcing him to stay there Wants to hear from pcp he can leave? * Telephone Encounter - Carole Maria - 06/24/2022 3:13 PM EDT Symptoms patient is presenting: elevated bp 174/82 - then it matthew down 166/78 For ALL patients calling to schedule any [...] traveled recently to another state outside of [place], [place], [place], [place], [place], [place], [place]? NO o If yes, did you quarantine [...] How long has patient had these symptoms?: today PCP: Mireya Robledo [facility] / Plan[place] / Product Type: MEDICARE [id number] documented in this encounter Plan of Treatment Not on file documented as of this encounter Visit Diagnoses Not on filedocumented in this encounter Care Teams Livestock Breeder Relationship Specialty Start Date End Date Riccardo Robledo MD 230 [place] [address] PCP - General Internal Medicine 12/28/19 Olga Ochoa MD 230 [place] [address] Specialist Lung Cancer Project Administrative Assistant 03/07/21 Mina Dominguez PA-C 299 [facility] 410 [place] [address] Specialist Thoracic Surgery 04/29/22 Addison Winslow PA-C 175 [facility] [address] [place] [address] Specialist Neurosurgery 05/02/23 June Dneton PA-C [address] [address] Specialist Neurosurgery 05/02/23 Nichole Otto MD [address] [id number] Surgeon Neurosurgery 05/02/23 documented as of this encounter
--- OUTSIDE RECORDS SUMMARY | 2024-05-26 08:00 | XMS_ITS | Encounter Summary ---
Author Organization [facility] Address [address] [place] [address] Care Team Providers Care Evening Sitter Name Role Phone Riccardo Robledo MD Primary Care Provider Olga Ochoa MD Unavailable Mina Dominguez PA-C Unavailable Addison Winslow PA-C Unavailable June Denton-Will Unavailable [phone] Nichole Otto MD Unavailable [phone] Reason for Visit * Reason Onset Date Comments Provider Call Back 06/10/2022 Encounter Details Date Type Department Care Team Description 06/10/2022 Telephone Adult Medicine [address] [address] Riccardo Robledo MD [address] [place] [phone] Provider Call Back Social History Tobacco Use [...] suspected to have Coronavirus/COVID-19? No / Unsure 06/12/2022 9:41 AM EDT documented as of this encounter Miscellaneous Notes * Telephone Encounter - Prabha Smith R.N. - 06/10/2022 3:29 PM EDT Spoke with patient, received his echo results and wants to discuss with you. * Telephone Encounter - Danitza Mansfield - 06/10/2022 3:18 PM EDT Caller requesting call back from provider: Is the caller the patient? YES If caller is not the patient, what is the callers name? N/A Callers relationship to patient? N/A If person calling is not the patient themselves, is there a verbal release in FYI or permanent comments for this person: NO Reason for call back: Patient would like to discuss the results from his heart test. with Dr. Swanson. Caller offered to speak with the nurse for assistance: YES Response: Patient offered to speak with nurse for assistance and patient agreed. Message forwarded to nurse. documented in this encounter Plan of Treatment Not on file documented as of this encounter Visit Diagnoses Not on filedocumented in this encounter Care Teams Evening Sitter Relationship Specialty Start Date End Date Riccardo Rboledo MD [address] [place] [address] PCP - General Internal Medicine 12/28/19 Olga Ochoa MD [address] [place] [address] Specialist Lung Cancer Automatic Operator 03/07/21 Mina Dominguez PA-C [address] [phone] Specialist Thoracic Surgery 04/29/22 Addison Winslow PA-C 175 [facility] [address] [place] [address] Specialist Neurosurgery 05/02/23 June Denton PA-C [address] [address] Specialist Neurosurgery 05/02/23 Nichole Otto MD [address] [address] Surgeon Neurosurgery 05/02/23 documented as of this encounter
--- OUTSIDE RECORDS SUMMARY | 2024-05-26 08:00 | XMS_ITS | Encounter Summary ---
Author Organization [facility] Address [address] [place] [address] Care Team Providers Care Foreign Food Specialty Cook Name Role Phone Riccarod Robledo MD Primary Care Provider [phone] Olga Ochoa MD Unavailable Mina Dominguez-C Unavailable Addison Winslow-C Unavailable June Denton PA-C Unavailable Nichole Otto MD Unavailable [phone] Encounter Details Date Type Department Care Team Description 06/08/2021 Pt. Non Urgent Medic al Question Adult Medicine - [place] [address] [place] [address] Riccardo Robledo MD [address] [place] [address] Social History Tobacco Use Types Packs/Day Years [...] Telephone Encounter - Mary Austin L.P.N. - 06/11/2021 8:03 AM EDT From: Jv Monroy Jr. To: Will Robledo Sent: 06/08/2021 6:09 PM EDT Subject: TO DR MARC THIS IS JV I MISS YOUR CALL I WAS LAYING DOWN MIKHAIL RECOVERING FROM MY SURGERY I CALL YOU ABOUT ANY TEST RESULT FROM ER CALL WHEN YOU CAN THANK YOU documented in this encounter Plan of Treatment Not on file documented as of this encounter Visit Diagnoses Not on filedocumented in this encounter Care Teams Foreign Food Specialty Cook Relationship Specialty Start Date End Date Riccardo Robledo MD [address] [place] [address] PCP - General Internal Medicine 12/28/19 Olga Ochoa MD [address] [place] [address] Specialist Lung Cancer Equine Manager 03/07/21 Mina Dominguez PA-C [address] [phone] Specialist Thoracic Surgery 04/29/22 Addison Winslow PA-C 175 [facility] [address] [place] [address] Specialist Neurosurgery 05/02/23 June Denton PA-C [address] [address] Specialist Neurosurgery 05/02/23 Nichole Otto MD [address] [address] Surgeon Neurosurgery 05/02/23 documented as of this encounter
== END 2024-05-26 07:52 | disposition home or self-care (01) ==
LOC: HO.XRAY 07:51
PROVIDERS: PCP Internal Medicine; Visit Provider Internal Medicine Gastroenterology
DX: R13.10 Dysphagia, unspecified (principal)
CPT/HCPCS: 74220

== ENCOUNTER → 2024-05-26 07:52 | Outpatient (BNV) | payer MEDICARE, MEDICAID, SELFPAY | PROVIDERS: PCP Internal Medicine; Visit Provider Radiology Diagnostic Radiology | DX: K44.9 Diaphragmatic hernia without obstruction or gangrene (principal); K21.9 Gastro-esophageal reflux disease without esophagitis | CPT/HCPCS: 74220 ==

== ENCOUNTER 2024-11-08 10:33 | Outpatient (AMB) | payer MEDICARE, MEDICAID, SELFPAY ==
--- OUTSIDE RECORDS SUMMARY | 2024-11-08 11:33 | XMS_ITS | Patient Health Record ---
[facility] Address [address] [place] [address] Care Team Providers Care Health Specialist Name Role Phone Aston Davison Primary Care Provider Unav Xavi Cortes Unavailable [phone] Allergies Allergen (clinical drug ingredient) Drug/Non Drug Allergy documented on EMR Reaction Allergy Type Onset Date Status codeine Codeine Sulfate Unknown Drug Allergy A ctive Reason For Referral No Information Medications Medication SIG (Take, Route, Frequency, Duration) Notes Start Date End Date Status Clotrimazole-Betamethasone 1-0.05 % 1 application to affected area Externally Twice a day to affected areas on feet; Duration: 30 days 04/02/2019 Active Daily-Ashley - TAKE 1 TABLET BY LAUREN TH EVERY DAY Oral; Duration: 30 Active Dexilant 60 MG TAKE 1 CAPSULE BY MO UTH EVERY DAY Oral; Duration: 30 Active Levocetirizine Dihydrochloride 5 MG TAKE 1 TABLET BY MOUTH EVERY DAY IN THE EVENING Oral; Duration: 90 Active Lisinopril 5 MG TAKE 1 TABLET BY LAUREN TH EVERY DAY Oral; Duration: 90 Active Iwbyh-0-gdfm Ethyl Esters 1 GM TAKE 2 CAPSULES BY MOUTH TWICE A DAY Oral; Duration: 30 Active Ondansetron 4 MG DISSOLVE 1 TABLET IN MOUTH EVERY 4-6 HOURS Oral; Duration: 3 Active oxyCODONE HCl 20 MG (Schedule II Drug) T CHIO 1 TABLET BY MOUTH TWICE A DAY NEEDED FOR PAIN Oral; Duration: 30 Active OxyCONTIN 20 MG (Schedule II Drug) T CHIO 1 TABLET BY MOUTH EVERY 12 HOURS NEEDED FOR PAIN Oral; Duration: 30 Active Vitamin D 50 MCG (2000 UT) TAKE 1 TABLET BY MOUTH EVERY DAY Oral; Duration: 30 Active Cefdinir 300 MG as directed Orally Active Atorvastatin Calcium 20 MG TAKE 1 TABLET BY MOUTH EVERY DAY Oral; Duration: 90 Active Social History Tobacco Use: Social History Observation Description Date Details (start date - stop date) Former Smoker NA - NA Tobacco Use/Smoking Question Answer Notes Are you a: former smoker When did you stop smoking? 2014 Additional Findings: Tobacco Non-User Current no n-smoker Alcohol Screen Question Answer Notes Did you have a drink containing alcohol in the p ast year? No Points 0 Interpretation Negative Tobacco use other than smoking: Question Answer Notes Are you an other tobacco user? No Plan Of Treatment No Information Insurance Providers Payer Name Payer Address Payer Phone Subscriber Number Group Number Insured Name Patient Relationship to Insured Coverage Start Date Coverage End Date Medicare National Govt Svcs [employer] [address] [place] [address] [id number] Jv Monroy Self - patient is the insured 4 Medical (General) History Medical History History ICD Code Arthritis asthma Back,Hip,and Knee pain Broken bones Headaches/Migraines High blood pressure Lung disease nerve disorder Surgical History Surgery Date(Month/Year) cervical fusion hernia leg surgery nose
--- OUTSIDE RECORDS SUMMARY | 2024-11-08 11:33 | XMS_ITS | Clinical Summary ---
Author Organization [facility] Address [address] [place] [phone] Phone Care Team Providers Care Desktop Support Manager Name Role Phone Alicja Benton MD Primary Care Provider Allergies Active Allergy Reactions Criticality Noted Date Comments Bee Venom Protein (Honey Bee) Hives 12/13/2021 Clindamycin Hives 03/10/2020 Codeine 02/11/2019 Dexamethasone Palpitations Low 03/10/2020 Fluticasone Furoate Palpitations Low 03/10/2020 Elevated BP, Ibuprofen 02/11/2019 Metronidazole Hives,Rash Low 03/10/2020 Acetaminophen 02/11/2019 Umeclidinium Palpitations Low 03/10/2020 Venom-Honey Bee 02/02/2008 Other reaction(s): Hives/Urticaria Vilanterol Palpitations Low 03/10/2020 Elevated BP Medications atorvastatin (LIPITOR) 20 MG tablet Take 20 mg by mouth. Active benzonatate (TESSALON) 100 MG capsule Take 100 mg by mouth. Active cholecalciferol, vitamin D3, 1,000 unit capsule Take by mouth. Active EPINEPHrine (EPIPEN JR 2-KAYLA) 0.15 mg/0.3 mL injection Inject into the muscle. 08/16/2008 Active levalbuterol (XOPENEX HFA) 45 mcg/actuation inhaler Inhale 1-2 puffs into the lungs. Active lisinopril (PRINIVIL,ZESTRI L) 5 MG tablet Take 5 mg by mouth. Active omega-3 acid ethyl esters (LOVAZA) 1 gram capsule Take by mouth. Active oxyCODONE HCl 10 mg Tab Take by mouth. Active oxyCODONE (OXYCONTIN) 15 mg TR12 12 hr tablet Take by mouth. Active pantoprazole (PROTONIX) 40 MG tablet Take 40 mg by mouth. Active Social History Tobacco Use Types Packs/Day Years Used Date Smoking Tobacco: Former Comments:quit in 2013 Education Answer Date Recorded Are you interested in more education? Not on remington e 07/19/2022 Are you concerned about learning? Not on file 07/19/2022 No 07/19/2022 No 07/19/2022 Digital Access Answer Date Recorded No 08/17/2022 No 08/17/2022 No 08/17/2022 Reliable internet access at home? Not on file 08/17/2022 Device with a working camera? Not on file Sex and Gender Information Value Date Recorded Sex Assigned at Not on file Legal Sex Male 12:10 PM EDT Gender Identity Not on file Sexual Orientation Not on file Last Filed Vital Signs Vital Sign Reading Time Taken Comments Blood Pressure 153/88 02/01/2019 2:11 PM EST Pulse 74 02/01/2019 2:11 PM EST Temperature - - Respiratory Rate - - Oxygen Saturation - - Inhaled Oxygen Concentration - - Weight 84.6 kg (186 lb 9.6 oz) 02/01/2019 2:11 P M EST Height 172.7 cm (5' 8 ) 02/01/2019 2:11 PM EST Body Mass Index 28.37 02/01/2019 2:11 PM EST Plan of Treatment Health Maintenance Due Date Last Done Comments CREATININE LEVEL 1967 POTASSIUM LEVEL 1967 DEPRESSION SCREENING 1979 SMOKING Hx and SMOKELESS TOBACCO SCREENING 07/16/1980 HEPATITIS C SCREENING 07/16/1985 HIV ONE-TIME SCREENING (18-6 5 YEARS) 07/16/1985 COLOGUARD 07/16/2012 COLONOSCOPY 07/16/2012 COLORECTAL CANCER SCREENING 07/16/2012 FIT TEST 07/16/2012 FOBT 07/16/2012 SIGMOIDOSCOPY 07/16/2012 VIRTUAL COLONOSCOPY 07/16/2012 PNEUMOCOCCAL VACCINES (50+ years) (3 of 3 - PCV20 or PCV21) 04/30/2022 04/30/2017, 11/17/2014 COVID-19 VACCINE (3 - 2023-2 5 season) 2023 05/17/2020, 04/19/2020 Adult Td,Tdap Booster 11/30/2025 12/01/2015 LIPID PANEL 05/14/2028 05/14/2023 MENINGOCOCCAL VACCINES (ACWY) Aged Out 01/13/2016 No longer eligible based on patient's age to complete this topic ZOSTER VACCINES Completed 11/08/2017, 07/24/2017 MENINGOCOCCAL VACCINES (B) Aged Out 12/12/2017 N o longer eligible based on patient's age to complete this topic HEPATITIS A VACCINES Aged Out No long er eligible based on patient's age to complete this topic HIB VACCINES Aged Out No longer eligi ble based on patient's age to complete this topic Medical Devices Not on file Insurance MEDICARE PART A & B [facility] MEDICARE PART A & B Member Subscriber Plan / Payer (Ef fective 1993-Present) Name:Jv Monroy Member ID:[id number] Relation to Subscriber:Self Name:Jv Monroy Subscriber ID:[id number] Payer ID:[id number] Group ID:Not on file Type:Medicare Address: [place] [address] [place] [phone] [place] & B [facility] [place] [facility] A & [place] [facility] MED[facility] PART A & [place] [facility] Care Teams Desktop Support Manager Relationship Specialty Start Date End Date Alicja Benton MD [address] [facility] [place] [address] PCP - General Internal Medicine 12/15/18 Additional Source Comments The information contained in this document represents components of the legal health record. It is not the complete legal health record.[facility]
--- OUTSIDE RECORDS SUMMARY | 2024-11-08 11:33 | XMS_ITS | Encounter Summary ---
Author Organization [facility] Address [address] [place] [address] Care Team Providers Care Car Designer Name Role Phone Mireya Robledo MD Primary Care Prov ider Reason for Visit * Reason Onset Date Comments Referral 11/02/2024 [facility] Encounter Details Date Type Department Care Team ([facility] st Contact Info) Description 11/02/2024 Telephone Adult Medicine - [place] [address] [place] [address] Mireay Robledo MD [address] [place] [address] Referral ([facility]) Social History Tobacco Use Types Packs/Day Years Used Date Smoking Tobacco: Former Cigarettes Q uit: 03/24/2014 Smokeless Tobacco: Never Alcohol Use Standard Drinks/Week Comments Not Currently 0 (1 standard drink = 0.6 oz pur e alcohol) Sex and Gender Information Value Date Recorded Sex Assigned at Male 06/29/2024 11:59 AM EDT Legal Sex Male 5:40 AM EST Gender Identity Not on file Sexual Orientation Not on file documented as of this encounter Progress Notes * Katia Salinas - 11/03/2024 6:48 AM EDT Requested referral sent to Dr. Swanson's team * Melanie Lynn - 11/02/2024 4:32 PM EDT Pt calling, asking for referral for cardiology to be sent to [facility] as they have sooner appts. Echocardiogram. [facility] can't get him in until December, [facility] has November appts. He would like to go there. Please call Jv back. documented in this encounter Plan of Treatment Upcoming Encounters Date Type Department Care Team (Late st Contact Info) Description 11/12/2024 1:30 PM EDT Ancillary Procedure [facility] [address] [place] [phone] 11/18/2024 7:30 AM EDT Hospital Encounter [facility] [place] [address] [place] [phone] Akin Delacruz MD [address] [address] 11/18/2024 7:30 AM EDT Anesthesia Event [facility] [place] [address] [place] [phone] Padmini Hernandez, [place] [address] 11/18/2024 7:30 AM EDT - 11/18/2024 9:00 AM EDT Surgery [facility] OR [address] [place] [phone] Akin Delacruz MD [address] [address] ARTHROSCOPY LEFT SHOULDER REPAIR ROTATOR CUFF [[id number] (CPT )] 12/01/2024 11:00 AM EDT Office Visit Orthopedic Surgery - [place] [address] [phone] Carole Reynaga PA [address] [address] 12/09/2024 9:30 AM EDT Office Visit Adult Medicine - [place] [address] [place] [phone] Logan Romero PA [address] [place] [address] 12/15/2024 10:00 AM EDT Office Visit Orthopedic Surgery - [place] [address] [phone] Mina Eckert DPM [address] [address] 04/07/2025 9:45 AM EST Office Visit Bariatric Surgery - [place] [address] [phone] Sahara Villela MD [address] [address] Scheduled Procedures Name Priority Associated Diagnoses Date/Ti me ARTHROSCOPY SHOULDER REPAIR ROTATOR CUFF Nontraumatic tear of left rotator cuff, unspecified tear extent 11/18/2024 7:30 AM EDT documented as of this encounter Visit Diagnoses Not on filedocumented in this encounter Care Teams Car Designer Relationship Specialty Start Date End Date Mireya Robledo MD [address] [place] [address] PCP - General Internal Medicine 02/02/24 documented as of this encounter
--- OUTSIDE RECORDS SUMMARY | 2024-11-08 11:33 | XMS_ITS | Clinical Summary ---
Author Organization [facility] Address [address] [place] [address] Care Team Providers Care Terminologist Name Role Phone Mireya Robledo Primary Care [...] 01/16/2021, 05/17/2020, 04/19/2020 Alcohol/Substance Use Screening 03/24/2024 Depression Screening and Follow-Up 03/24/2024 Social Drivers of Health Ciara ual Screening 03/24/2024 Influenza Vaccine (#1) 2024 , 01/13/2023, 11/08/2021, Additional history exists DTaP,Tdap,and Td Vaccines (2 - Td or Tdap) 11/30/2025 12/01/2015 RSV Vaccine (60+ years old a nd patients) (1 - 1-dose 75+ series) 07/16/2042 Zoster Vaccines Completed 11/08/2017, 07/24/2017 Insurance MEDICARE [facility] Care Teams Terminologist Relationship Specialty Start Date End Date Mireya Robledo [address] [place] [address] PCP - General Internal Medicine 11/04/23
--- OUTSIDE RECORDS SUMMARY | 2024-11-08 11:33 | XMS_ITS ---
Author Name [facility] Organization Unknown Care Team Organization Name Specialty Phone Email Start Date End Da te [facility] DESTINY BERGERON Primary Care 05/29/2022 11/10/2023 [facility] TARAN MARINO Primary Care 01/29/20222023
--- OUTSIDE RECORDS SUMMARY | 2024-11-08 11:33 | XMS_ITS | Encounter Summary ---
Author Organization [facility] Address [address] [place] [address] Care Team Providers Care Optical Instruments Supervisor Name Role Phone Riccardo Robledo MD Primary Care Provider Olga Ochoa MD Unavailable Mina Dominguez PA-C Unavailable [phone] Addison Winslow PA-C Unavailable June Denton-Will Unavailable Nichole Otto MD Unavailable [phone] Reason for Visit * Reason Onset Date Comments refill request 02/23/2020 Encounter Details Date Type Department Care Team Description 02/23/2020 Refill Adult Medicine - [place] [address] [place], [place] [id number] Riccardo Robledo MD [address] [place] [address] refill request Social History Tobacco Use Types [...] Telephone Encounter - Mary Austin L.P.N. - 02/24/2020 2:55 PM EST Faxed to pharmacy * Telephone Encounter - Mary Austin L.P.N. - 02/24/2020 10:04 AM EST Last OV 02/06 [facility] to covering. Controlled substance contract and last issue date of medication reviewed. Patient is due for medication. (we have not filled yet) Last filled 30days 60 tabs 01/23 Lab Results Component Value Date URBENZO NONE DETECTED 02/08/2020 UROPIATES POSITIVE 02/08/2020 URBARBITUATE NONE DETECTED 02/08/2020 PAINAMPHETAM NONE DETECTED 02/08/2020 PAINCOCAINE NONE DETECTED 02/08/2020 PAINCANNABIN NONE DETECTED 02/08/2020 Medication request pended for your review. * Telephone Encounter - Hood Rodas - 02/23/2020 3:58 PM EST Patient would like script to be: E-PRESCRIBED/FAXED TO PHARMACY WHEN WAS THE PATIENT'S LAST APPOINTMENT IN ADULT MEDICINE? 02/07/20 WHEN WAS THE LAST TIME THE PATIENT SAW THEIR PCP? Same as above Does patient have an upcoming appointment? Yes 03/14/20 (THE MEDICATION REQUESTED IS ON THE MED [...] / Plan[place] / Product Type: MEDICARE [id number] documented in this encounter Plan of Treatment Not on file documented as of this encounter Visit Diagnoses Not on filedocumented in this encounter Care Teams Optical Instruments Supervisor Relationship Specialty Start Date End Date Riccardo Robledo MD [address] [place] [address] PCP - General Internal Medicine 12/28/19 Olga Ochoa MD [address] [place] [address] Specialist Lung Cancer Water Meter Reader 03/07/21 Mina Dominguez PA-C 299 [facility] [address] [place] [address] Specialist Thoracic Surgery 04/29/22 Addison Winslow PA-C 175 [facility] [address] [place] [address] Specialist Neurosurgery 05/02/23 June Denton PA-C 175 [facility] [address] [place] [address] Specialist Neurosurgery 05/02/23 Nichole Otto MD 175 [facility] [address] [place] [address] Surgeon Neurosurgery 05/02/23 documented as of this encounter
--- OUTSIDE RECORDS SUMMARY | 2024-11-08 11:33 | XMS_ITS | Clinical Summary ---
Author Organization [facility] Address [address] [place] [address] Care Team Providers Care Buggy Runner Name Role Phone Mireya Robledo MD Primary [...] 5 season) 2023 04/19/2020 Influenza Vaccine (#1) 2024 0, 02/02/2008 Pneumococcal Vaccine Aged Out No long er eligible based on patient's age to complete this topic RSV Ped < 20 months Aged Out No longe r eligible based on patient's age to complete this topic Care Teams Buggy Runner Relationship Specialty Start Date End Date Mireya Robledo MD PCP - General Internal Medicine 05/26/20
== END 2024-11-08 10:35 | disposition home or self-care (01) ==
LOC: HO.HMGAL 10:33
PROVIDERS: PCP Internal Medicine; Visit Provider Registered Nurse Emergency
DX: J30.89 Other allergic rhinitis (principal)
CPT/HCPCS: 95117; 95165

== ENCOUNTER 2024-11-15 10:41 | Outpatient (AMB) | payer MEDICARE, MEDICAID, SELFPAY ==
--- OUTSIDE RECORDS SUMMARY | 2022-08-05 03:28 | XMS_ITS | Continuity of Care Document ---
Author Organization [facility] Address [address] [place] [address] Phone Care Team Providers Care Music Supervisor Name Role Phone Mars CARRERA FACS RVT [...] Providers Copied on Encounter [facility], [address] 1000Ber[place], [id number], [place] tel:[phone] [facility] No Information Mars CARRERA FACS RVT ANUJA Leal. [address] [facility], [address], [facility] [place], [address], [place]. tel:[phone] Office/Outpt E&M Established 15 Mins [facility], [address] [place] [address] Dr [address], [place], [id number], [place] tel:[phone] [place] Venous insufficiency (chronic) (peripheral) 3 Mars CARRERA FACS [facility] Olivier Elvis. [address] [place], [address], [facility] [place], [address], [place]. tel:[phone] Referring Provider: Olivier Crews MD, FACS [facility], [facility]0 [facility] Suite [facility], [place], [address]. tel:[phone] [place] [facility], [address] [place] [address] Dr [address], [place], [id number], [place] tel:[phone] [place] Venous insufficiency (chronic) (peripheral)Pa in in right legPain in left leg 3 Mars CARRERA FACS [facility] ANUJA Aguayo Elvis. [address] [facility], [address] [facility], [facility] [place], [address], [place]. [phone] Referring Provider: Olivier Crews MD, FACS [facility], [facility]0 [facility] Suite [facility], [place], [address]. tel:[phone] Office/Outpt E&M Established 15 Mins [place] [facility], [address] [place] [address] [address], [place], [id number], [place] tel:[phone] [place] Body mass index (BMI) 29.0-29.9, adultVenous insufficiency (chronic) (peripheral) 3 Mars CARERRA FACS [facility] Olivier Elvis. [address], [address], [place], [address], [place]. tel:[phone] Referring Provider: Olivier Crews MD, FACS [facility], [facility]0 [facility] Suite [facility], [place], [address]. tel:[phone] Family History Family Member Type Diagnosis Age At Onset No Information Payers Payer name Insurance type Covered republican ID Authoriza tion(s) Medicare ERIC JARAMILLO [id number] Medical Assistance ERIC BARLOW [id number] Social History Type Description Quantity Date Captured [...]
--- OUTSIDE RECORDS SUMMARY | 2024-11-15 11:53 | XMS_ITS | Encounter Summary ---
Author Organization [facility] Address [address] [place] [address] Care Team Providers Care Senior Investment Analyst Name Role Phone Riccardo Robledo MD Primary Care Provider Olga Ochoa MD Unavailable Mina Dominguez PA-C Unavailable Addison Winslow PA-C Unavailable June Denton-Will Unavailable Nichole Otto MD Unavailable [phone] Reason for Visit * Reason Onset Date Comments refill request 02/23/2020 Encounter Details Date Type Department Care Team Description 02/23/2020 Refill Adult Medicine - [place] [address] [place], [place] [phone] Riccardo Robledo MD [address] [place] [address] refill request Social History Tobacco Use Types [...] / Plan: [place] / Product Type: MEDICARE [id number] documented in this encounter Plan of Treatment Not on file documented as of this encounter Visit Diagnoses Not on filedocumented in this encounter Care Teams Senior Investment Analyst Relationship Specialty Start Date End Date Riccardo Robledo MD [address] [place] [address] PCP - General Internal Medicine 12/28/19 Olga Ochoa MD [address] [place] [address] Specialist Lung Cancer Hotel Yardperson 03/07/21 Mina Dominguez PA-C 299 [facility] [address] [place] [address] Specialist Thoracic Surgery 04/29/22 Addison Winslow PA-C 175 [facility] [address] [place] [address] Specialist Neurosurgery 05/02/23 June Denton PA-C 175 [facility] [address] [place] [address] Specialist Neurosurgery 05/02/23 Nichole Otto MD 175 [facility] [address] [place] [address] Surgeon Neurosurgery 05/02/23 documented as of this encounter
--- OUTSIDE RECORDS SUMMARY | 2024-11-15 11:53 | XMS_ITS | Encounter Summary ---
Author Organization [facility] Address [address] [place] [address] Care Team Providers Care Side Stitching Machine Operator Name Role Phone Mireya Robledo MD Primary Care Prov ider Reason for Visit * Reason Onset Date Comments Allergies 11/03/2024 Encounter Details Date Type Department Care Team (Late st Contact Info) Description 11/03/2024 Telephone Adult Medicine [facility] [address] [place] [phone] Ree Beatty [place] Allergies Social History Tobacco Use Types Packs/Day Years [...] on file documented as of this encounter Ordered Prescriptions Prescription Sig Dispense Quantity Refills Last Filled Start Date End Date levocetirizine (XYZAL) 5 mg tablet Take 1 tablet (5 mg total) by mouth 2 (two) times a day. 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 He has been without his allergy shots and he is wondering what he can use. Per Dr. Swanson's verbal order he may take 5 mg of xyzal BID instead on qd. Pended prescription for your review. Thank you. documented in this encounter Plan of Treatment Upcoming Encounters Date Type Department Care Team (Late st Contact Info) Description 11/18/2024 7:30 AM EDT Hospital Encounter [facility] OR [address] [place] [phone] Akin Delacruz MD [address] [address] 11/18/2024 7:30 AM EDT Anesthesia Event [facility] OR [address] [place] [phone] Padmini Hernandez, [address] [address] 11/18/2024 7:30 AM EDT - 11/18/2024 10:00 AM EDT Surgery [facility] OR [address] [place] [phone] Akin Delacruz MD [address] [address] ARTHROSCOPY LEFT SHOULDER REPAIR ROTATOR CUFF [66821 (CPT )] 12/01/2024 11:00 AM EDT Office Visit Orthopedic Surgery - [place] [address] [phone] Carole Reynaga PA [address] [address] 12/09/2024 9:30 AM EDT Office Visit Adult Medicine - [place] [address] [place] [phone] Logan Romero PA [address] [place] [address] 12/15/2024 10:00 AM EDT Office Visit Orthopedic Surgery - [place] 250 175 [facility] [address] [place] [phone] Mina Eckert DPM 175 [facility] [address] [place] [address] 04/07/2025 9:45 AM EST Office Visit Bariatric Surgery - [place] 175 [facility] [address] [place] [phone] Sahara Villela MD 175 [facility] [address] [place] [address] Scheduled Procedures Name Priority Associated Diagnoses Date/Ti me ARTHROSCOPY SHOULDER REPAIR ROTATOR CUFF Nontraumatic tear of left rotator cuff, unspecified tear extent 11/18/2024 7:30 AM EDT documented as of this encounter Visit Diagnoses Not on filedocumented in this encounter Discontinued Medications Medication Sig Discontinue Reason Start Date End Da te levocetirizine (XYZAL) 5 mg tablet TAKE 1 TABLET BY MOUTH EVERY DAY IN THE EVENING Reorder 05/21/2024 11/03/2024 documented as of this encounter Care Teams Side Stitching Machine Operator Relationship Specialty Start Date End Date Mireya Robledo MD [address] [place] [address] PCP - General Internal Medicine 02/02/24 documented as of this encounter
--- OUTSIDE RECORDS SUMMARY | 2024-11-15 11:54 | XMS_ITS | Clinical Summary ---
Author Organization [facility] Address [address] [place] [address] Care Team Providers Care Pbx Mechanic Name Role Phone Mireya Robledo Primary Care Provide r Unavailable Medications Hospital, Clinic, or Other Facility Administered Medication Ordered Dose Route Frequency Start Date End Date Status lidocaine (XYLOCAINE) 4% (40 mg/mL) topical solution 120 mg 120 mg topical Once 11/20/2023 Active Encounters Date Type Department Care Team Description 11/10/2024 Telephone [facility] Infection Control Department [address] [place] [phone] Angel Sal III, MD from Last 3 Months Social History Tobacco Use Types Packs/Day Years [...] or PCV21) 04/30/2022 04/30/2017, 11/17/2014 COVID-19 Vaccine (2023-2 5 season) 2023 01/16/2021, 05/17/2020, 04/19/2020 Alcohol/Substance Use Screening 03/24/2024 Depression Screening and Follow-Up 03/24/2024 Social Drivers of Health Ciara ual Screening 03/24/2024 Influenza Vaccine (#1) 2024 4, 01/13/2023, 11/08/2021, Additional history exists DTaP,Tdap,and Td Vaccines (2 - Td or Tdap) 11/30/2025 12/01/2015 RSV Vaccine (60+ years old a nd patients) (1 - 1-dose 75+ series) 07/16/2042 Zoster Vaccines Completed 11/08/2017, 07/24/2017 Insurance MEDICARE [facility] Care Teams Pbx Mechanic Relationship Specialty Start Date End Date Mireya Robledo [address] [place] [id number] PCP - General Internal Medicine 11/04/23
--- OUTSIDE RECORDS SUMMARY | 2024-11-15 11:54 | XMS_ITS | Clinical Summary ---
Author Organization [facility] Address [address] [place] [address] Care Team Providers Care Inside Sales Manager Name Role Phone Mireya Robledo MD [...] age to complete this topic Care Teams Inside Sales Manager Relationship Specialty Start Date End Date Mireya Robledo MD PCP - General Internal Medicine 05/26/20
== END 2024-11-15 11:12 | disposition home or self-care (01) ==
LOC: HO.HMGAL 10:41
PROVIDERS: PCP Internal Medicine; Visit Provider Registered Nurse Emergency
DX: J30.89 Other allergic rhinitis (principal)
CPT/HCPCS: 95117; 95165

== ENCOUNTER 2024-11-26 09:16 | Outpatient (REF) | payer MEDICARE, MEDICAID, SELFPAY ==
[2024-11-26 11:18] LABS: HBS Num1 221.24 mIU/mL (0-7.99); HBc Num1 1.04 S/CO (0.00-0.79); HBsAGNum1 0.37 S/CO (0.00-0.99); HIV Num 1 0.05 S/CO (0.00-0.99); Hepatitis B Surface Antigen Negative (Negative); ~HepC Num1 0.12 S/CO (0.00-0.79); ~Hepatitis B Surface Antibody REACTIVE (Nonreactive); ~Hepatitis C Antibody Nonreactive (Nonreactive)
[2024-11-26 12:29] LABS: HBc Num2 0.96 S/CO; HBc Num3 1.03 S/CO
== END 2024-11-26 09:17 | disposition home or self-care (01) ==
LOC: HO.LAB 09:16
PROVIDERS: PCP Internal Medicine; Visit Provider Hospitalist
DX: J44.89 Other specified chronic obstructive pulmonary disease (principal); R91.8 Other nonspecific abnormal finding of lung field; K21.9 Gastro-esophageal reflux disease without esophagitis; R76.8 Other specified abnormal immunological findings in serum; Z11.4 Encounter for screening for human immunodeficiency virus [HIV]; Z87.891 Personal history of nicotine dependence
CPT/HCPCS: 36415; 86704; 86706; 86803; 87340; 87389; 99212

== ENCOUNTER 2024-11-26 09:16 | Outpatient (AMB) | payer MEDICARE, MEDICAID, SELFPAY ==
--- OUTSIDE RECORDS SUMMARY | 2022-08-05 03:28 | XMS_ITS | Continuity of Care Document ---
Author Organization [facility] Address [address] [place] [address] Phone Care Team Providers Care Industrial Chemistry Teacher Name Role Phone Mars CARRERA FACS RVT [...] Providers Copied on Encounter [facility], [address] 1000Ber[place], [id number], [place] tel:[phone] [facility] No Information Mars CARRERA FACS RVT ANUJA Leal. [address] [facility], [address], [facility] [place], [address], [place]. tel:[phone] Office/Outpt E&M Established 15 Mins [facility], [address] [place] [address] Dr [address], [place], [id number], [place] tel:[phone] [place] Venous insufficiency (chronic) (peripheral) 3 Mars CARRERA FACS [facility] Olivier Elvis. [address] [place], [address], [facility] [place], [address], [place]. tel:[phone] Referring Provider: Olivier Crews MD, FACS [facility], [facility]0 [facility] Suite [facility], [facility] [place], [address]. tel:[phone] [place] [facility], [address] [place] [address] Dr [address], [place], [id number], [place] tel:[phone] [place] Venous insufficiency (chronic) (peripheral)Pa in in right legPain in left leg 3 Mars CARRERA FACS [facility] ANUJA Aguayo Elvis. [address] [facility], Suite [facility], [facility] [place], [address], [place]. [phone] Referring Provider: Olivier Crews MD, FACS [facility], [facility] Suite [facility], [place], [address]. tel:[phone] Office/Outpt E&M Established 15 Mins [place] [facility], [address] [place] [address] [address], [place], [id number], [place] tel:[phone] [place] Body mass index (BMI) 29.0-29.9, adultVenous insufficiency (chronic) (peripheral) 3 Mars CARRERA FACS [facility] Olivier Elvis. [address] [place], [address], [facility] [place], [address], [place]. tel:[phone] Referring Provider: Olivier Crews MD, FACS [facility], [facility] Suite [facility], [facility] [place], [address]. tel:[phone] Family History Family Member Type Diagnosis Age At Onset No Information Payers Payer name Insurance type Covered republican ID Authoriza tion(s) Medicare ERIC JARAMILLO [id number] Medical Assistance ERIC BARLOW [id number] Social History Type Description Quantity Date Captured [...]
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
[2024-11-26 09:21] VITALS: BP 114/70; PULSE 80; O2SAT 99; BMI 25.5
--- OUTSIDE RECORDS SUMMARY | 2024-11-26 09:59 | XMS_ITS | Encounter Summary ---
Author Organization [facility] Address [address] [place] [address] Phone Care Team Providers Care Wood Bucker Name Role Phone Alicja Benton MD Primary Care Provider Encounter Details Date Type Department Care Team (Late st Contact Info) Description 01/14/2019 Documentation [facility] [address] [place] [id number] No [email or web address] Social History Tobacco Use Types Packs/Day Years [...] on filedocumented in this encounter Care Teams Wood Bucker Relationship Specialty Start Date End Date Alicja Benton MD [facility] [place] [address] PCP - General Internal Medicine 12/15/18 documented as of this encounter Additional Source Comments The information contained in this document represents components of the legal health record. It is not the complete legal health record.[facility]
--- OUTSIDE RECORDS SUMMARY | 2024-11-26 09:59 | XMS_ITS | Encounter Summary ---
Author Organization [facility] Address [address] [place] [phone] Phone Care Team Providers Care Buffing Wheel Former Machine Name Role Phone Alicja Benton MD Primary Care Provider Reason for Referral * MRI/CAT Scan - Closed Specialty Diagnoses / Procedures Referred By Contac t Referred To Contact Procedures CT Chest Outside (No Interpretation) Chapis Myrick MD Phone: tel: fax: mailto:[email or web address] Referral ID Status Reason Start Date Expiration Date Visits Re quested Visits Authorized [id number] Closed 01/15/2019 01/15/2020 1 1 * MRI/CAT Scan - Closed Specialty Diagnoses / Procedures Referred By Contac t Referred To Contact Procedures CT Chest Outside (No Interpretation) Chapis Mryick MD Phone: tel: fax: mailto:[email or web address] Referral ID Status Reason Start Date Expiration Date Visits Re quested Visits Authorized [id number] Closed 01/15/2019 01/15/2020 1 1 * MRI/CAT Scan - Closed Specialty Diagnoses / Procedures Referred By Contac t Referred To Contact Procedures CT Vascular Outside (No Interpretation) Chapis Myrick MD Phone: tel: fax: mailto:[email or web address] Referral ID Status Reason Start Date Expiration Date Visits Re quested Visits Authorized [id number] Closed 01/15/2019 01/15/2020 1 1 Encounter Details Date Type Department Care Team (Late st Contact Info) Description 01/15/2019 Transcribe Orders [facility] [address] [address] Osiel Roes [address] [place] [phone] [email or web address] Social History Tobacco Use Types Packs/Day Years Used Date Smoking Tobacco: Never Assessed Sex and Gender Information Value Date Recorded Sex Assigned at Not on file Legal Sex Male 12:10 PM EDT Gender Identity Not on file Sexual Orientation Not on file documented as of this encounter Plan of Treatment Not on file documented as of this encounter Results * CT Chest Outside (No Interpretation) (01/15/2019 8:05 AM EDT) Narrative [facility] - 01/15/2019 8:05 AM EDT This study is for PACS storage only and not for interpretation. us Chapis Myrick MD IMG OUTSIDE IMAGING W/OUT IN TERPRETATION Final Result Performing Organization Address [facility] de Phone Number [email or web address] * CT Chest Outside (No Interpretation) (01/15/2019 8:04 AM EDT) Narrative [facility] - 01/15/2019 8:04 AM EDT This study is for PACS storage only and not for interpretation. us Chapis Myrick MD IMG OUTSIDE IMAGING W/OUT IN TERPRETATION Final Result Performing Organization Address [facility] Co de Phone Number [email or web address] * CT Vascular Outside (No Interpretation) (01/15/2019 8:04 AM EDT) Narrative [facility] - 01/15/2019 8:04 AM EDT This study is for PACS storage only and not for interpretation. us Chapis Myrick MD IMG OUTSIDE IMAGING W/OUT IN TERPRETATION Final Result [facility] documented in this encounter Visit Diagnoses Not on filedocumented in this encounter Care Teams Buffing Wheel Former Machine Relationship Specialty Start Date End Date Alicja Benton MD [facility] [place] [address] PCP - General Internal Medicine 12/15/18 documented as of this encounter Additional Source Comments The information contained in this document represents components of the legal health record. It is not the complete legal health record.[facility]
--- OUTSIDE RECORDS SUMMARY | 2024-11-26 09:59 | XMS_ITS | Encounter Summary ---
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 He has been without his allergy shots and he is wondering what he can use. Per Dr. Swanson's verbal order he may take 5 mg of xyzal BID instead on qd. Pended prescription for your review. Thank you. documented in this encounter Plan of Treatment Upcoming Encounters Date Type Department Care Team (Late st Contact Info) Description 12/09/2024 9:30 AM EDT Office Visit Adult Medicine [facility] [address] [place] [phone] Logan Romero PA [address] [place] [address] 12/15/2024 10:00 AM EDT Office Visit Orthopedic Surgery [place] [address] [address] [facility] [address] [place] [phone] Mina Eckert DPDanisha [address] [phone] 04/07/2025 9:45 AM EST Office Visit Bariatric Surgery [facility] [address] [facility] [address] [place] [phone] Sahara Villela MD [address] [place] [address] documented as of this encounter Visit Diagnoses Not on filedocumented in this encounter Discontinued Medications Medication Sig Discontinue Reason Start Date End Da te levocetirizine (XYZAL) 5 mg tablet TAKE 1 TABLET BY MOUTH EVERY DAY IN THE EVENING Reorder 05/21/2024 11/03/2024 documented as of this encounter Care Teams Registered Occupational Therapist Relationship Specialty Start Date End Date Mireya Robledo MD [address] [place] [address] PCP - General Internal Medicine 02/02/24 documented as of this encounter
--- OUTSIDE RECORDS SUMMARY | 2024-11-26 09:59 | XMS_ITS | Encounter Summary ---
Author Organization [facility] Address [address] [place] [address] Care Team Providers Care Tamper Operator Name Role Phone Mireya Robledo MD Primary Care Prov ider Reason for Referral * Consultation (Routine) - Authorized Specialty Diagnoses / Procedures Referred By Contac t Referred To Contact Cardiology Diagnoses KATHLEEN (obstructive sleep apnea) Mireya Robledo MD [address] [place] [address] Phone: tel: fax: [address] [address] Phone: tel: Referral ID Status Reason Start Date Expiration Date Visits Requested Visits Authorized [id number] Authorized Specialty Services Required 11/12/2024 11/12/2025 1 1 Reason for Visit * Reason Onset Date Comments Referral 11/03/2024 cardiology Encounter Details Date Type Department Care Team (Late st Contact Info) Description 11/03/2024 Telephone Adult Medicine - [place] [address] [place] [address] Mireya Robledo MD [address] [place], [place] Social History Tobacco Use Types Packs/Day [...] as of this encounter Progress Notes * Katiala Salinas - 11/03/2024 9:26 AM EDT Referral Request: What insurance does the patient have today? Medicare Referrals cannot be processed if the insurance is not accurate. If the insurance listed above in red is NO BILLING INFORMATION FOUND FOR THIS ENCOUTNER The patients correct insurance must be obtained and registered in [facility] or their referral can not be processed. Who is calling to request this referral? Pt If the caller is not the patient, what is their name? not applicable Ask the patient WHO referred them to this specialty: Patient self referred FIRST and LAST NAME of SPECIALIST PATIENT is seeing: [facility] does not have a drs name What specialty is this? Cardiology DIAGNOSIS Patient is being seen for (Not a body part or a procedure): Echocardiogram Have you seen this SPECIALIST for this PROBLEM/DX before? If YES, when? Yes. Different practice Have you checked REVIEW or the APPT DESK to see if this referral has already been done or has visits left? yes Is this visit: Initial Visit Address of Specialist: [facility] Phone # of Specialist: [phone] Fax #: (if applicable): [phone] Does patient have an appointment scheduled?: no Date of appointment- (including a retro-request): - Is this appointment related to: Not MVA, worker compensation, or surgery related documented in this encounter Plan of Treatment Upcoming Encounters Date Type Department Care Team (Late st Contact Info) Description 12/09/2024 9:30 AM EDT Office Visit Adult Medicine - [place] [address] [place] [phone] Logan Romero PA [address] [place] [address] 12/15/2024 10:00 AM EDT Office Visit Orthopedic Surgery - [place] [address] [facility] [address] [place] [phone] Mina Eckert, DPM 175 [facility] [address] [place] [phone] 04/07/2025 9:45 AM EST Office Visit Bariatric Surgery - [place] 175 [facility] [address] [place] [phone] Sahara Villela MD [address] [place] [phone] Scheduled Referrals Name Type Priority Associated Diagnoses Order Schedule Ambulatory referral to Cardiology Outpatient Referral Routine KATHLEEN (obstructive sleep apnea) Expected: 11/12/2024, Expires: 11/12/2025 documented as of this encounter Visit Diagnoses Diagnosis KATHLEEN (obstructive sleep apnea)- Primary Obstructive sleep apnea (adult) (pediatric) documented in this encounter Care Teams Tamper Operator Relationship Specialty Start Date End Date Mireya Robledo MD [address] [place] [address] PCP - General Internal Medicine 02/02/24 documented as of this encounter
--- OUTSIDE RECORDS SUMMARY | 2024-11-26 09:59 | XMS_ITS | Encounter Summary ---
Author Organization [facility] Address [address] [facility] [address] [place] [phone] Phone Care Team Providers Care Supervisor Line Department Name Role Phone Alicja Benton MD Primary Care Provider Encounter Details Date Type Department Care Team (Late st Contact Info) Description 03/06/2020 Telemedicine [facility] [address] [place] [phone] Chapis Myrick MD [address] [place] [phone] [email or web address] Lung nodules (Primary Dx) Social History Tobacco Use Types Packs/Day Years Used Date Smoking Tobacco: Former Comments:quit in 2013 Sex and Gender Information Value Date Recorded Sex Assigned at Not on file Legal Sex Male 12:10 PM EDT Gender Identity Not on file Sexual Orientation Not on file documented as of this encounter Plan of Treatment Not on file documented as of this encounter Visit Diagnoses Diagnosis Lung nodules- Primary Other diseases of lung, not elsewhere classified documented in this encounter Care Teams Supervisor Line Department Relationship Specialty Start Date End Date Alicja Benton MD [address] [facility] [place] [address] PCP - General Internal Medicine 12/15/18 documented as of this encounter Additional Source Comments The information contained in this document represents components of the legal health record. It is not the complete legal health record.[facility]
--- OUTSIDE RECORDS SUMMARY | 2024-11-26 10:00 | XMS_ITS | Clinical Summary ---
Author Organization [facility] Address [address] [place] [address] Care Team Providers Care Independent Trader Name Role Phone Mireya Robledo MD Primary [...] age to complete this topic Care Teams Independent Trader Relationship Specialty Start Date End Date Mireya Robledo MD PCP - General Internal Medicine 05/26/20
--- OUTSIDE RECORDS SUMMARY | 2024-11-26 10:00 | XMS_ITS | Encounter Summary ---
Author Organization [facility] Address [address] [place] [address] Care Team Providers Care Die Baker Name Role Phone Mireya Robledo MD Primary Care Prov ider Reason for Visit * Reason Onset Date Comments Study Results 11/17/2024 Echocardiogram Encounter Details Date Type Department Care Team ([facility] Contact Info) Description 11/17/2024 Telephone Adult [address] [phone] Ree Beatty MA Social History Tobacco Use [...] as of this encounter Progress Notes * Ree Beatty MA - 11/17/2024 2:46 PM EDT Patient is calling, concerned about his echocardiogram results. He would like to have your opinion on these results. I placed them in your in-box. Thank you. documented in this encounter Plan of Treatment Upcoming Encounters Date Type Department Care Team ([facility] Contact Info) Description 12/09/2024 9:30 AM EDT Office Visit Adult Medicine - [place] [address] [place] [phone] Logan Romero PA [address] [place] [address] 12/15/2024 10:00 AM EDT Office Visit Orthopedic Surgery - [place] [address] [address] [facility] [address] [place] [phone] Mina Eckert, DPM [address] [phone] 04/07/2025 9:45 AM EST Office Visit Bariatric Surgery - [place] [address] [facility] [address] [place] [phone] Sahara Villela MD [address] [place] [phone] documented as of this encounter Visit Diagnoses Not on filedocumented in this encounter Care Teams Die Baker Relationship Specialty Start Date End Date Mireya Robledo MD [address] [place] [address] PCP - General Internal Medicine 02/02/24 documented as of this encounter
--- OUTSIDE RECORDS SUMMARY | 2024-11-26 10:00 | XMS_ITS | Encounter Summary ---
Author Organization [facility] Address [address] [place] [address] Care Team Providers Care Medical Radiation Dosimetrist Name Role Phone Mireya Robledo MD Primary Care Prov ider Reason for Visit * Reason Onset Date Comments Provider call 11/18/2024 Encounter Details Date Type Department Care Team ([facility] st Contact Info) Description 11/18/2024 Telephone Adult Medicine [facility] [address] [place] [phone] Mireya Robledo MD [address] [place] [address] Social History Tobacco Use Types Packs/Day Years [...] of this encounter Progress Notes * Mireya Robledo MD - 11/24/2024 11:14 AM EDT I have spoken to patient about this no need for an appointment * Raymundo Stovall RN - 11/18/2024 1:50 PM EDT Do you want an appointment with pt See prior note * Barbara Charlie - 11/18/2024 9:54 AM EDT Please see scanned in item regarding ( patient letter). Patient received a letter from [facility] regarding his procedure he had done on 11/20/2023, esophageal manometry. The probe that was used did not under go the proper sterilization recommended by the assayer. Patient states he is starting to get the feeling back in his throat/esophagus again and wants to talk to Dr. Lennon. Patient states that he is receiving calls from [facility], however won't return them. Letter is uploaded into patients chart for PCP to review. documented in this encounter Plan of Treatment Upcoming Encounters Date Type Department Care Team (Late st Contact Info) Description 12/09/2024 9:30 AM EDT Office Visit Adult Medicine [facility] [address] [place] [phone] Logan Romero PA [address] [place] [address] 12/15/2024 10:00 AM EDT Office Visit Orthopedic Surgery [facility] [address] [facility] [address] [place] [phone] Mina Eckert DPM [address] [facility] [address] [place] [phone] 04/07/2025 9:45 AM EST Office Visit Bariatric Surgery [facility] [address] [facility] [address] [place] [phone] Sahara Villela MD [address] [place] [phone] documented as of this encounter Visit Diagnoses Not on filedocumented in this encounter Care Teams Medical Radiation Dosimetrist Relationship Specialty Start Date End Date Mireya Robledo MD [address] [place] [address] PCP - General Internal Medicine 02/02/24 documented as of this encounter
--- OUTSIDE RECORDS SUMMARY | 2024-11-26 10:00 | XMS_ITS | Clinical Summary ---
Author Organization 175 [facility] Address [address] [place] [address] Phone Care Team Providers Care Travelift Operator Name Role Phone Mireya Robledo MD Primary Care Prov ider Allergies Active Allergy Reactions Criticality Noted Date Comments Bee Venom Protein (Honey Bee) Hives 2007 Clindamycin Hives 03/10/2020 Dexamethasone Palpitations 03/10/2020 Fluticasone Furoate Palpitations 03/10/2020 Elevated BP, Metronidazole Hives,Rash 03/10/2020 Pollen Extracts 03/10/2020 Tree & Shrub Umeclidinium Palpitations 03/10/2020 Vilanterol Palpitations 03/10/2020 Elevated BP Medications linaCLOtide (Linzess) 145 mcg capsule Take 1 capsule (145 mcg total) by mouth 1 (one) time each day. 90 capsule 1 5 Active levalbuterol (XOPENEX) 1.25 mg/3 mL nebulizer solution Inhale 1 ampule by mouth. Active levalbuterol (XOPENEX HFA) 45 mcg/actuation inhaler Inhale 1-2 puffs by mouth every 4 (four) hours if needed. 4 Active cholecalciferol (VITAMIN D-3) 50 mcg (2,000 unit) capsule Take 1 capsule (2,000 Units total) by mouth 1 (one) time each day. 90 capsule 1 5 Active MetamuciL 0.4 gram capsule TAKE 3 CAPSULES (1,200 MG TOTAL) BY MOUTH 4 (FOUR) TIMES A DAY. 360 capsule 5 Active atorvastatin (LIPITOR) 20 mg tablet TAKE 1 TABLET BY MOUTH EVERY DAY 90 tablet 1 5 Active Daily-Ashley, with folic acid, 400 mcg tablet TAKE 1 TABLET BY MOUTH EVERY DAY 90 tablet 1 5 Active miconazole nitrate 2 % aerosol,spray Apply topically 1 (one) time each day. 133 g 2 5 025 Active clotrimazole (LOTRIMIN) 1 % cream Apply topically 2 (two) times a day. 30 g 3 5 Active tirzepatide, weight loss, (Zepbound) 15 mg/0.5 mL injectionIndicati ons:Over weight Inject 0.5 mL (15 mg total) under the skin every 7 (seven) days. 2 mL 5 5 Active triamcinolone (NASACORT) 55 mcg nasal inhaler SPRAY 1 SPRAY INTO EACH NOSTRIL DAILY NEEDED 32.4 mL 1 5 Active diazePAM (VALIUM) 5 mg tabletIndications :Cervical radiculopathy at C6,Cervical spondylosis without myelopathy Take 1 tablet (5 mg total) by mouth 2 (two) times a day. Max Daily Amount: 10 mg 30 tablet 2 5 Active levocetirizine (XYZAL) 5 mg tablet Take 1 tablet (5 mg total) by mouth 2 (two) times a day. 180 tablet 1 5 Active oxyCODONE (ROXICODONE) 10 mg immediate release tabletIndications :Cervical radiculopathy at C6,Chronic pain disorder,Chronic left shoulder pain Take 1 tablet (10 mg total) by mouth every 8 (eight) hours if needed for severe pain (breaktrough pain) for up to 28 days. Max Daily Amount: 30 mg 84 tablet 5 025 Active oxyCODONE (ROXICODONE) 20 mg immediate release tabletIndications :Cervical radiculopathy at C6,Chronic pain disorder,Chronic left shoulder pain Take 1 tablet (20 mg total) by mouth 3 (three) times a day. Max Daily Amount: 60 mg 84 tablet 5 Active diazePAM (VALIUM) 5 mg tablet Take 1 tablet (5 mg total) by mouth 2 (two) times a day. 025 Discontin ued(Reord er) levocetirizine (XYZAL) 5 mg tablet TAKE 1 TABLET BY MOUTH EVERY DAY IN THE EVENING 90 tablet 1 5 025 Discontin ued(Reord er) oxyCODONE (ROXICODONE) 10 mg immediate release tabletIndications :Cervical radiculopathy at C6,Chronic pain disorder,Chronic left shoulder pain Take 1 tablet (10 mg total) by mouth every 12 (twelve) hours for 28 days. Max Daily Amount: 20 mg 56 tablet 5 025 Discontin ued(Reord er) oxyCODONE (ROXICODONE) 20 mg immediate release tabletIndications :Cervical radiculopathy at C6,Chronic pain disorder,Chronic left shoulder pain Take 1 tablet (20 mg total) by mouth 3 (three) times a day. Max Daily Amount: 60 mg 84 tablet 5 025 Discontin ued(Reord er) diazePAM (VALIUM) 5 mg tablet Take 1 tablet (5 mg total) by mouth 2 (two) times a day. Max Daily Amount: 10 mg 30 tablet 2 5 025 Discontin ued(Reord er) Active Problems Problem Noted Date Diagnosed Date History of shoulder surgery 09/07/2024 Opioid contract exists 09/07/2024 Nontraumatic tear of left rotator cuff 5 Sliding hiatal hernia 05/28/2024 Abdominal discomfort 05/02/2023 Altered bowel function 05/02/2023 [...] gave him some information on a local broomcorn seeder as that is another reasonable conservative modality. He is welcome to follow-up with us in the future on an as-needed basis. 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 Talley is a 56-year-old male with a history of mild achalasia who on May 23, 2021 had a robotic laparoscopic Heller myotomy and Celestino fundoplication. Patient now complains of intermittent esophageal spasms after ingesting very cold water and [place] mints. His barium swallow performed today on [...] wintergreen mints. Dysphagia 01/29/2021 COPD (chronic obstructive pu lmonary disease) (CMS/HCC V24, CMS/HCC V28) 01/29/2021 Cervical radiculopathy at C6 06/14/2020 Anxiety 03/10/2020 BPH (benign prostatic hyperplasia) 03/10/2020 Chronic pain disorder 03/10/2020 Erectile dysfunction 03/10/2020 Insomnia 03/10/2020 Large thymus ([facility] V24) 03/10/2020 Overview (12/26/2023): Stable since 2013, seen [...] GERD (gastroesophageal reflux disease) 9 Emphysema lung ([facility] V24, [facility] V28) 2017 Nodule of left lung 07/30/2017 Overview (12/26/2023): Last Assessment & Plan: Patient does have a significant smoking history with a pack year total of 30 and is a candidate for lung cancer screening. I will refer the patient to lung cancer screening program at [facility]. Tubular adenoma of colon 11/12/2016 Hyperlipidemia 11/10/2009 Hypertension 09/21/2009 Agoraphobia with panic disorder 07/13/2008 Posttraumatic stress disorder 07/13/2008 Allergic rhinitis 02/02/2008 Overview (12/26/2023): Failed Flonase, Nasonex Asthma 02/02/2008 Severe bipolar I disorder, c urrent or most recent episode mixed ([facility] V24, [facility] V28) 02/02/2008 Overview (12/26/2023): history of hospitalization Psychologist Dr. Derrek Downs -[facility] - [phone] Encounters Date Type Department Care Team Description 11/18/2024 Telephone Adult [address] [phone] Mireya Robledo MD 11/18/[address] [phone] Mrieya Robledo MD 11/17/[address] [phone] Ree Beatty [place] 11/12/2024 1:30 PM EDT Ancillary Procedure [facility] [address] [place] [address] Chest pain, unspecified type 11/03/[address] [phone] Mireya Robledo MD 11/03/[address] [phone] Ree Beatty [place] 11/02/[address] [phone] Mireya Robledo MD 10/22/2024 10:00 AM EDT Consult [address] [phone] Mireya Robledo MD Preop examination (Primary Dx); Chronic postrheumatic arthropathy (jaccoud), left shoulder (CMS/HCC V24, CMS/HCC V28) 10/20/2024 9:30 AM EDT Office Visit [address] [phone] Mireya Robledo MD Chest pain, unspecified type (Primary Dx); Achalasia, esophageal; Bilateral leg pain 10/07/2024 Telephone Adult [facility] [address] [place] [phone] Mireya Robledo MD 10/05/2024 9:45 AM EDT Office Visit Bariatric [facility] 175 [facility] [address] [place] [phone] Sahara Villela MD Over weight (Primary Dx) 09/14/2024 9:45 AM EDT Office Visit Orthopedic Surgery [facility] [address] [phone] Mina Eckert, DPM Dermatophytosis of nail (Primary Dx); Tinea pedis of both feet; Ingrowing nail 09/14/2024 Telephone Adult [facility] [address] [place] [phone] Mireya Figueroa MA 09/07/2024 9:30 AM EDT Office Visit Adult [address] [phone] Logan Romero PA Chronic left shoulder pain (Primary Dx); Sliding hiatal hernia; Achalasia, esophageal; Chronic pain disorder; Esophageal stricture; Myofascial pain; History of shoulder surgery; Opioid contract exists 09/07/2024 Telephone Adult [facility] [address] [place] [phone] Logan Romero PA 09/03/[address] [facility] [address] [phone] Sahara Villela MD 08/26/2024 Telephone Adult [facility] [address] [place] [phone] Mireya Robledo MD from Last 3 Months Immunizations Name Administration Dates Next Due H1N1 Inj Preservative Free 02/02/2009 Influenza Quadravalent, MDCK , 0.5ml, preservative free (Flucelvax) 6mo and older 01/13/2023,11/08/2021,11/16/2016 Influenza Quadrivalent, 0.5m l, preservative free (Fluarix; FluLaval; Fluzone) ages 6mo and older (Afluria) 3yo and older 11/13/2020,10/24/2017 Influenza Quadrivalent, with preservative (Fluzone; Afluria) 6mo and older 11/03/2018 Influenza trivalent, MDCK, 0 .5mL, preservative free (Flucelvax) 6mo and older 10/29/2023 Influenza trivalent, with pr eservative (Fluzone; Afluria) 6mo and older 11/05/2020,11/03/2018,10/24/2017,11/16,11/24/2009,02/02/2008 Influenza, Unspecified 11/10/2023,11/10/2023, MMR, measles mumps and rubel la Live (Priorix; M-M-R II) 12mo and older 08/10/2018 Meningococcal B, Recombinant (Bexsero) 16yo to less than 24yo 12/12/2017 Meningococcal MCV4P 01/13/2016 Moderna SARS-CoV-2 COVID-19, mRNA, LNP-S, preservative free 01/16/2021 PPD Test 06/07/2009 Pneumococcal conjugate 13 va lent (Prevnar 13, PCV13) 2mo and older 04/30/2017 Pneumococcal conjugate 20 va lent (Prevnar 20, PCV 20) 2mo and older 11/11/2023 Pneumococcal polysaccharide 23 valent (Pneumovax 23) 2yo and older 11/17/2014 Tdap Tetanus diptheria acell ular pertussis (Boostrix; Adacel) 7yo and older 12/01/2015 Zoster recombinant (Shingrix ) 19yo and older 11/08/2017,07/24/2017 Surgical History Surgery Date Site/Laterality Comments OTHER SURGICAL HISTORY 1980s PROCEDURE: HISTORY OTHER; COMMENT: testicular surgery NECK SURGERY 12/15/19 16 PROCEDURE: HISTORICAL NECK SURGERY; COMMENT: Cervical Discectomy & Fusion (ACDF), Dr Newell OTHER SURGICAL HISTORY 08/30/19 18 Left PROCEDURE: MT ENDOVEN ABLTJ INCMPTNT VEIN XTR LASER 1ST VEIN; COMMENT: EVLTDr Crews HERNIA REPAIR 04/05/19 17 Left PROCEDURE: HISTORICAL HERNIA REPAIR/ING; COMMENT: Dr Lacy OTHER SURGICAL HISTORY 2017 PROCEDURE: MT TOTAL DISC ARTHRP ANT SINGLE INTERSPACE CERVICAL; COMMENT: C5-C6 OTHER SURGICAL HISTORY 03/20/20 17 Left PROCEDURE: MT RMVL PROSTC MATRL/MESH ABDL WALL FOR INFECTION; COMMENT: Laparopscopic removal of L inguinal hernia mesh OTHER SURGICAL HISTORY 12/17/19 17 PROCEDURE: HISTORY OTHER; COMMENT: Removal C5-6 Total disc arthroplasty c5-c6 discectomy,decompression & interbody fusion, bone allograft, ant plate fixation OTHER SURGICAL HISTORY 04/21/19 16 Left PROCEDURE: MT STAB PHLEBT VARICOSE VEINS 1 XTR 01-10 STAB INCS OTHER SURGICAL HISTORY 04/14/19 16 Left PROCEDURE: MT ENDOVEN ABLTJ INCMPTNT VEIN XTR LASER 1ST VEIN; COMMENT: Radiofrequency ablation Lt lerg TURP / TRANSURETHRAL INCISIO N / DRAINAGE PROSTATE 2.30.20 PROCEDURE: HISTORICAL TURP; COMMENT: Partial OTHER SURGICAL HISTORY 03/03/20 19 PROCEDURE: MT EGD DILATION GASTRIC/DUODENAL STRICTURE; COMMENT: Schatzki ring, mild esophagitis, tear distal esophagus,& superficial proximal esophageal tear LEG SURGERY PROCEDURE: HISTORICAL LEG SURGERY NOSE SURGERY PROCEDURE: MT UNLISTED PROCEDURE NOSE COLONOSCOPY 2017 PROCEDURE: HISTORICAL COLONOSCOPY; COMMENT: [facility] TONSILLECTOMY PROCEDURE: HISTORICAL TONSILLECTOMY ESOPHAGOGASTRODUODENOSCOPY 07/06/19 PROCEDURE: MT ESOPHAGOGASTRODUODENOSCOPY TRANSORAL DIAGNOSTIC; COMMENT: stricture possible related [...] c urrent or most recent episode mixed ([facility] [place], [facility]28) 02/02/2008 DX:Severe bipolar I disorder , current or most recent episode mixed ([facility]); COMMENT: history of hospitalization Psychologist Dr. Derrek Downs [facility] - [phone] Hypertension 09/21/2009 DX:Hypertension KATHLEEN (obstructive sleep apnea) [...] Meyer), f/u on SIEP periodically Large thymus ([facility] [place]) 03/10/2020 DX:La rge thymus ([facility]); COMMENT: Stable since 2013, seen by Oncology 11/2018) - No symptoms to suggest a thyoma, No Further Workup is Needed Chronic pain disorder 03/10/2020 DX:Chronic pain disorder Emphysema lung ([facility] [place], [facility] V28) 07/30/2017 DX:Emphysema lung ([facility]) Esophageal stricture 02/07/2020 DX:Esophage al stricture GERD (gastroesophageal reflu x disease) 10/11/2018 DX:GERD (gastroesophageal re flux disease) History of substance abuse ( [facility] [place], [facility] V28) 02/08/2020 DX:History of substance abus e ([facility]); COMMENT: Alcohol, Cocaine Hyperlipidemia 11/10/2009 DX:Hyperlipidemi a Pulmonary nodules 07/30/2017 DX:Pulmonary n odules COPD (chronic obstructive pu lmonary disease) ([facility] [place], [facility] V28) 01/29/2021 DX:COPD (chronic o bstructive pulmonary disease) ([facility]) Dysphagia 01/29/2021 DX:Dysphagia Cervical radiculopathy at [...] Cigarettes Q uit: 03/24/2014 Smokeless Tobacco: Never Tobacco Cessation:Counseling Given: Not [...] Sign Reading Time Taken Comments Blood Pressure 105/69 11/12/2024 2:22 PM EDT Pulse 63 10/22/2024 10:08 AM EDT Temperature 36.2 C (97.2 F) 10/22/2024 10:08 AM EDT Respiratory Rate 18 04/22/2024 9:46 AM EST Oxygen Saturation 96% 04/22/2024 9:46 AM EST Inhaled Oxygen Concentration - - Weight 74.8 kg (165 lb) 11/12/2024 2:22 PM EDT Height 172.7 cm (5' 8 ) 11/12/2024 2:22 PM EDT Body Mass Index 25.09 11/12/2024 2:22 PM EDT Plan of Treatment Upcoming Encounters Date Type Department Care Team (Late st Contact Info) Description 12/09/2024 9:30 AM EDT Office Visit Adult Medicine - [facility] [address] [place] [phone] Logan Romero PA [address] [place] [address] 12/15/2024 10:00 AM EDT Office Visit Orthopedic Surgery - [place] [address] [place] [phone] Mina Eckert, DPM [address] [facility] [address] [place] [address] 04/07/2025 9:45 AM EST Office Visit Bariatric Surgery - [place] [address] [facility] [address] [place] [address] Sahara Villela MD [address] [place] [phone] Health Maintenance Due Date Last Done Comments Hepatitis B Vaccines (1 of 3 - 19+ 3-dose series) 07/16/1986 HIV Screening 03/02/2022 Medicare Annual Wellness Visit 03/02/2022 Social Influencers of Health Screening 03/02/2022 Depression Screening 03/24/2024 COVID-19 Vaccine ( season) 2024 01/16/2021, 05/17/2020, 04/19/2020 Hypertension/CHF/CAD Annual BMP Blood Test 05/28/2025 05/28/2024, 12/11/2023, 12/11/2023 Lung Cancer Screening (Low Dose CT) 07/02/2025 07/02/2024, 06/27/2023, 06/29/2022 DTaP,Tdap,and Td Vaccines (2 - Td or Tdap) 11/30/2025 12/01/2015 Cholesterol Screening (Lipid Panel) 12/10/2028 12/11/2023, 12/11/2023 Colorectal Cancer Screening: Colonoscopy 05/09/2032 05/09/2022 Meningococcal ACWY Vaccine Aged Out 01/13/2016 N o longer eligible based on patient's age to complete this topic Zoster Vaccines Completed 11/08/2017, 07/24/2017 Meningococcal B Vaccine Aged Out 12/12/2017 No l onger eligible based on patient's age to complete this topic MMR Vaccines Aged Out 08/10/2018 No longer eligi ble based on patient's age to complete this topic Hepatitis C Screening Completed 08/20/2023 Pneumococcal Vaccine: 50+ Years Completed 11/11/2023, 04/30/2017, 11/17/2014 Influenza Vaccine Completed 10/26/2024, , 11/10/2023, Additional history exists HIB Vaccines Aged Out No longer eligi ble based on patient's age to complete this topic HPV Vaccines Aged Out No longer eligi ble based on patient's age to complete this topic Hepatitis A Vaccines Aged Out No long er eligible based [...] Procedure Name Priority Date/Time Associated Diagnosis Comments TRANSTHORACIC ECHOCARDIOGRAM (TTE) COMPLETE Routine 11/12/2024 2:22 PM EDT Chest pain, unspecified type CT LUNG SCREENING Routine 07/02/2024 11: 05 AM EDT Encounter for screening for malignant neoplasm of respiratory organs Personal history of nicotine dependence COMPREHENSIVE METABOLIC PANEL Routine 05/28/2024 11:04 AM EST Schatzki's ring Achalasia, esophageal History of abdominal pain LIPID PANEL Routine 12/11/2023 HEPATITIS C SCREENING Routine 08/20/2023 COLONOSCOPY Routine 05/09/2022 from Last 3 Months or Most Recently Relevant to Health Maintenance Results * (ABNORMAL) TRANSTHORACIC ECHOCARDIOGRAM (TTE) COMPLETE (11/12/2024 2:22 PM EDT) Left Atrium [place] 5.2 cm CV PACS Left At[facility] [place] 5.5 cm CV PACS LA Area Sys (A2C) 18 cm2 CV PACS LA Area Sys (A4C) 17 cm2 CV PACS LA Volume (BP) 47 mL CV PACS RA Area 12.7 cm2 CV PACS RA 2D Volume 28 mL CV PACS AV Mean Gradient 5 mmHg CV PACS AV Mean Gradient 5 mmHg CV PACS Ao VTI 30.7 cm CV PACS AV Peak Cole 1.5 m/s CV PACS AV Peak Gradient 9 mmHg CV PACS AV Area Continuity Equation 2.5 cm2 CV PACS AV Area Peak Velocity 2.5 cm2 CV PACS Aortic Sinus Valsalva 3.6 cm CV PACS Ascending Aorta 3.4 cm CV PACS IVSD 1.0 0.6 - 1.0 cm CV PACS LVIDD 4.0(A) 4.2 - 5.8 cm CV PACS LVIDS 2.8 2.5 - 4.0 cm CV PACS LVOT Diameter 2.0 cm CV PACS LVOT Mean Cole 0.8 m/s CV PACS LVOT Mean Grad 3 mmHg CV PACS LVOT Mean Grad 3 mmHg CV PACS LVOT Peak VTI 24.1 cm CV PACS LVOT Peak Cole 1.2 m/s CV PACS LVOT Peak Gradient 6 mmHg CV PACS LVPWD 1.0 0.6 - 1.0 cm CV PACS MV E' Tissue Velocity Lateral 10 cm/s CV PACS MV E' Tissue Velocity Septal 5 cm/s CV PACS LVOT Area 3.1 cm2 CV PACS LVOT Stroke Volume 76 mL CV PACS E Wave Deceleration Time 250(A) 119 - 242 ms CV PACS MV Peak A Cole 0.72 m/s CV PACS MV Peak E Cole 0.64 m/s CV PACS MV Mean Gradient 1 mmHg CV PACS MV Mean Gradient 1 mmHg CV PACS MV Mean Gradient 1 mmHg CV PACS MV VTI 27.2 cm CV PACS Mitral Valve Max Velocity 0.8 m/s CV PACS MV Peak Gradient 3 mmHg CV PACS MV Area Continuity Equation 2.8 cm2 CV PACS PV Acceleration Time 109 ms CV PACS PV Acceleration Time 116 ms CV PACS PV Acceleration Time 113 ms CV PACS RV Diastolic Basal Dimension 3.5 2.5 - 4.1 cm CV PACS RV S' 11 cm/s CV PACS TAPSE 22 mm CV PACS TR Peak Velocity 2.23 m/s CV PACS TR Peak Gradient 20 mmHg CV PACS E/E' Ratio Septal 13 CV PACS E/E' Ratio Averaged 10 CV PACS LVOT Stroke Index 40 mL/m2 CV PACS Relative Wall Thickness ratio 0.50 CV PACS LVOT:AV VTI Index 0.79 CV PACS FS 30 % CV PACS LV Mass 2D 127 g CV PACS Ascending Aorta Index 1.81 cm/m2 CV PACS MV VTI:LVOT VTI ratio 1.1 CV PACS LVOT flow 251 mL/s CV PACS RA 2D Volume Index 15 mL/m2 CV PACS OLGA Index (VTI) 1.31 cm2/m2 CV PACS OLGA Index (Pk Cole) 1.33 cm2/m2 CV PACS LVIDD Index 2.13 cm/m2 CV PACS LVIDS Index 1.49 cm/m2 CV PACS AV Velocity Ratio 0.80 CV PACS E/A Ratio 0.9 CV PACS E/E' Ratio Lateral 6 CV PACS LA Volume Index (BP) 25 mL/m2 CV PACS LV Mass Index 2D 68 g/m2 CV PACS BSA 1.89 m2 CV PACS Anatomical Region Laterality Modality Ultrasound Narrative 11/17/2024 12:49 PM EDT Left ventricle cavity size is normal. Left ventricular systolic function is in the normal range with an ejection fraction of 55-60%. No regional LV wall motion abnormalities noted. Right ventricle cavity is normal. Right ventricular systolic function is normal. The atria are normal in size. No hemodynamically significant valve disease. See remainder of the report for additional findings. Left Ventricle Left ventricle cavity size is normal. Wall thickness is normal. Systolic function is normal with an ejection fraction of 55-60%. There are no regional LV wall motion abnormalities. Indeterminate diastolic function. Right Ventricle Right ventricle cavity appears normal. Systolic function is normal. Left Atrium Left atrium cavity size is normal. Right Atrium Right atrium cavity is normal. IVC/SVC Inferior vena cava structure is normal. RA pressures is estimated to be 3 mmHg (IVC diameter <21 mm and decreases >50% during inspiration). Mitral Valve The leaflets are mildly thickened. There is mild annular calcification. Mobile chordae noted in LVOT without obstruction. There is trace regurgitation. There is no evidence of mitral valve stenosis. Tricuspid Valve Tricuspid valve structure is normal. There is trace regurgitation. There is no evidence of tricuspid valve stenosis. Aortic Valve The aortic valve is trileaflet. The leaflets are mildly thickened. There is no regurgitation or stenosis. Pulmonic Valve Visualized portions of the pulmonic valve appear normal. There is trace pulmonic valve regurgitation. There is no evidence of pulmonic valve stenosis. Ascending Aorta The aorta appears normal in size. Pericardium Pericardium appears normal. There is no pericardial effusion. Study Details Overall the study quality was adequate. Wall Scoring Baseline Score Index: 1.00 The left ventricular wall motion is normal. us Mireya Robledo MD CV ECHO PROCEDURES Final Result * CT Lung Screening (07/02/2024 11:05 AM EDT) Anatomical Region Laterality Modality Chest Computed Tomogra phy 07/06/2024 8:25 AM EDT Impressions 07/06/2024 8:35 AM EDT No suspicious mass or nodule. No suspicious interval change LUNG RADS: Lung-RADS 2: BENIGN S Modifier (Significant or Potentially Significant Findings): None present No suspicious nonpulmonary findings. RECOMMENDATIONS: [address] month [address] low dose [address] -------- FINAL REPORT -------- Dictated By: Richmond Grider Dictated Date: 07/06/2024 08:25 ET Assigned Physician: Richmond Grider Reviewed and Electronically Signed By: Richmond Grider Signed Date: 07/06/2024 08:35 ET Workstation ID: [id number] Transcribed By: Self Edit Transcribed Date: 07/06/2024 08:25 ET Narrative 07/06/2024 8:35 AM EDT EXAMINATION: CT CHEST WITHOUT CONTRAST LUNG CANCER SCREENING, LOW DOSE CLINICAL INFORMATION: Lung cancer screening. Current smoker COMPARISON: Portions of previous 06/27/23 TECHNIQUE: Multidetector CT. Examination of the chest. Examination of the chest without IV contrast. Reformatting in the coronal and sagittal planes. Device: Tensilica VCT DLP: 177 mGy-cm CTDI: 4.83 Dose optimization was performed including the use of low-dose iterative reconstruction technique with automatic exposure control based on patient size. Type of contrast: None Volume of IV contrast: None Volume of contrast discarded: 0 mL FINDINGS: LUNG: No abnormality of the trachea or mainstem bronchi. No focal pneumonia. LUNG NODULES: Pleural associated solid nodule posterolateral right lower lobe 07/02/24-0.3 cm (3/175) 06/27/23-0.3 cm Unchanged cystic abnormality with slight eccentric wall thickening abutting the posterior aspect of the peripheral third of the right major fissure (3/118) OTHER PULMONARY: There is moderate centrilobular emphysema. MEDIASTINUM: There are no enlarged mediastinal or hilar lymph nodes. No suspicious abnormalities of the esophagus CARDIAC: The heart is not enlarged. No pericardial fluid or thickening No coronary calcifications demonstrated. VASCULAR: There is no thoracic aortic aneurysm. The main pulmonary artery is normal caliber PLEURA: There is no pleural fluid or pneumothorax AXILLA/CHEST WALL: There are no enlarged axillary lymph nodes. No chest wall mass demonstrated VISUALIZED UPPER ABDOMEN: No suspicious abnormality on limited assessment of the visualized upper abdomen MUSCULOSKELETAL: No suspicious focal bony lesion demonstrated. Procedure Note Richmond Grider MD - 07/06/2024 EXAMINATION: CT CHEST WITHOUT CONTRAST LUNG CANCER SCREENING, LOW DOSE CLINICAL INFORMATION: Lung cancer screening. Current smoker COMPARISON: Portions of previous 06/27/23 TECHNIQUE: Multidetector CT. Examination of the chest. Examination of the chest without IV contrast. Reformatting in the coronal and sagittal planes. Device: Tensilica VCT DLP: 177 mGy-cm CTDI: 4.83 Dose optimization was performed including the use of low-dose iterativereconstruction technique with automatic exposure control based on patientsize. Type of contrast: None Volume of IV contrast: None Volume of contrast discarded: 0 mL FINDINGS: LUNG: No abnormality of the trachea or mainstem bronchi. No focalpneumonia. LUNG NODULES: Pleural associated solid nodule posterolateral right lower lobe 07/02/24-0.3 cm (3/175) 06/27/23-0.3 cm Unchanged cystic abnormality with slight eccentric wall thickeningabutting the posterior aspect of the peripheral third of the right majorfissure (3/118) OTHER PULMONARY: There is moderate centrilobular emphysema. MEDIASTINUM: There are no enlarged mediastinal or hilar lymph nodes. Nosuspicious abnormalities of the esophagus CARDIAC: The heart is not enlarged. No pericardial fluid or thickening No coronary calcifications demonstrated. VASCULAR: There is no thoracic aortic aneurysm. The main pulmonary arteryis normal caliber PLEURA: There is no pleural fluid or pneumothorax AXILLA/CHEST WALL: There are no enlarged axillary lymph nodes. No chestwall mass demonstrated VISUALIZED UPPER ABDOMEN: No suspicious abnormality on limited assessmentof the visualized upper abdomen MUSCULOSKELETAL: No suspicious focal bony lesion demonstrated. IMPRESSION: No suspicious mass or nodule. No suspicious interval change LUNG RADS: Lung-RADS 2: BENIGN S Modifier (Significant or Potentially Significant Findings): Nonepresent No suspicious nonpulmonary findings. RECOMMENDATIONS: 12 month screening low dose CT -------- FINAL REPORT -------- Dictated By: Richmond Grider Dictated Date: 07/06/2024 08:25 ET Assigned Physician: Richmond Grider Reviewed and Electronically Signed By: Richmond Grider Signed Date: 07/06/2024 08:35 ET Workstation ID: [id number] Transcribed By: Self Edit Transcribed Date: 07/06/2024 08:25 ET us Olga Ochoa MD IM CT PROCEDURES Final Result * (ABNORMAL) Comprehensive metabolic panel (05/28/2024 11:04 AM EST) Sodium 142 133 - 145 mmol/L LAB CHEMISTRY METHOD 05/28/2024 4:05 PM [facility] Potassium 4.1 3.5 - 5.5 mmol/L LAB CHEMISTRY METHOD 05/28/2024 4:05 PM [facility] Chloride 108 96 - 110 mmol/L LAB CHEMISTRY METHOD 05/28/2024 4:05 PM [facility] CO2 25 21 - 32 mmol/L LAB CHEMISTRY METHOD 05/28/2024 4:05 PM [facility] Anion Gap 9 3 - 11 LAB CHEMISTRY METHOD 05/28/2024 4:05 PM [facility] Glucose 83 70 - 100 mg/dL LAB CHEMISTRY METHOD 05/28/2024 4:05 PM [facility] BUN 8 5 - 25 mg/dL LAB CHEMISTRY METHOD 05/28/2024 4:05 PM [facility] Creatinine 0.82 0.70 - 1.30 mg/dL LAB CHEMISTRY METHOD 05/28/2024 4:05 PM [facility] eGFR 103 >=60 mL/min/1. 73m2 LAB CHEMISTRY METHOD 05/28/2024 4:05 PM [facility] Comment:Calculation based on the Chronic Kidney Disease Epidemiology Collaboration (CKD-EPI) equation refit without adjustment for race. BUN/Creatinine Ratio 9.8 LAB CHEMISTRY METHOD 05/28/2024 4:05 PM [facility] Calcium 9.1 8.5 - 10.5 mg/dL LAB CHEMISTRY METHOD 05/28/2024 4:05 PM [facility] AST (SGOT) 25 10 - 42 unit/L LAB CHEMISTRY METHOD 05/28/2024 4:05 PM [facility] ALT (SGPT) 72(H) 10 - 60 unit/L LAB CHEMISTRY METHOD 05/28/2024 4:05 PM [facility] Alkaline Phosphatase 89 42 - 121 unit/L LAB CHEMISTRY METHOD 05/28/2024 4:05 PM [facility] Total Protein 7.2 6.0 - 8.0 g/dL LAB CHEMISTRY METHOD 05/28/2024 4:05 PM [facility] Albumin 4.0 3.2 - 5.0 g/dL LAB CHEMISTRY METHOD 05/28/2024 4:05 PM [facility] Total Bilirubin 0.3 0.0 - 1.4 mg/dL LAB CHEMISTRY METHOD 05/28/2024 4:05 PM [facility] Blood Venous blood specimen / Unknown Venipuncture / Unknown 05/28/2024 11:04 AM EST 05/28/2024 11:04 AM EST us Logan LYONS LAB BLOOD ORDERABLES Final Res ult [facility] [address] [place] [address], * (ABNORMAL) Lipid panel (12/11/2023) LDL/HDL Ratio 4 0 - 4 Triglycerides 248(A) 0 - 150 mg/dL Cholesterol 144 0 - 200 mg/dL HDL 37(A) >=40 mg/dL LDL Cholesterol 58 0 - 100 mg/dL Blood Venous blood specimen / Unknown Historical Provider LAB BLOOD ORDERABLES Kiara l Result * Hepatitis C Screening (08/20/2023) Hepatitis C Screening abstracted Historical Provider HEALTH MAINTENANCE Final Result * Colonoscopy (05/09/2022) Colonoscopy abstracted, no interpretation Anatomical Region Laterality Modality Other Historical Provider HEALTH MAINTENANCE Final Result from Last 3 Months or Most Recently Relevant to Health Maintenance Insurance MEDICARE [place]ICA[place] - [place] Care Teams Travelift Operator Relationship Specialty Start Date End Date Mireya Robledo MD [address] [place] [id number] PCP - General Internal Medicine 11/11/24
--- OUTSIDE RECORDS SUMMARY | 2024-11-26 10:00 | XMS_ITS | Patient Health Record ---
[facility] Address [address] [place] [address] Care Team Providers Care Premium Note Interest Calculator Clerk Name Role Phone Aston Davison Primary Care Provider Unav Xavi Cortes Unavailable [phone] Allergies Allergen (clinical drug ingredient) Drug/Non Drug [...] TH EVERY DAY Oral; Duration: 90 Active [id number] Ethyl Esters 1 GM TAKE 2 CAPSULES [...] Medicare National Govt S[employer] [address] [place] [address] [id number] Jv Monroy Self - patient is the insured 4 Medical (General) History Medical History History ICD Code Arthritis asthma Back,Hip,and Knee pain Broken bones Headaches/Migraines High blood pressure Lung disease nerve disorder Surgical History Surgery Date(Month/Year) cervical fusion hernia leg surgery nose
--- OUTSIDE RECORDS SUMMARY | 2024-11-26 10:01 | XMS_ITS | Clinical Summary ---
Author Organization [facility] Address [address] [place] [address] Phone Care Team Providers Care Aircraft Riveter Name Role Phone Alicja Benton MD Primary [...] HEPATITIS C SCREENING 07/16/1985 HIV ONE-TIME SCREENING (18-65 YEARS) 07/16/1985 COLOGUARD 07/16/2012 COLONOSCOPY 07/16/2012 COLORECTAL CANCER SCREENING 07/16/2012 FIT TEST 07/16/2012 FOBT 07/16/2012 SIGMOIDOSCOPY 07/16/2012 VIRTUAL COLONOSCOPY 07/16/2012 PNEUMOCOCCAL VACCINES (50+ years) (3 of 3 - PCV20 or PCV21) 04/30/2022 04/30/2017, 11/17/2014 INFLUENZA VACCINE (#1) 2024 9, 10/24/2017, 11/16/2016, Additional history exists COVID-19 VACCINE ( season) 2024 05/17/2020, 04/19/2020 Adult Td,Tdap Booster 11/30/2025 12/01/2015 [...] file Insurance MEDICARE PART A & B [facility] MEDICARE PART A & B [place] [facility] & [facility] PART [facility] [place] & [facility] & [place] PART A & [facility] Care Teams Aircraft Riveter Relationship Specialty Start Date End Date Alicja Benton MD [address] [place] [address] PCP - General Internal Medicine 12/15/18 Additional Source Comments The information contained in this document represents components of the legal health record. It is not the complete legal health record.[facility]
--- OUTSIDE RECORDS SUMMARY | 2024-11-26 10:01 | XMS_ITS | Clinical Summary ---
Author Organization [facility] Address [address] [place] [address] Care Team Providers Care Registered Nurse Fetal Name Role Phone Mireya Robledo Primary Care Provide r Unavailable Medications Hospital, Clinic, or Other Facility Administered Medication Ordered Dose Route Frequency Start Date End Date Status lidocaine (XYLOCAINE) 4% (40 mg/mL) topical solution 120 mg 120 mg topical Once 11/20/2023 Active Encounters Date Type Department Care Team Description 11/18/2024 Telephone [facility] Infection Control Department [address] [place] [address] Angel Sal III, MD 11/10/2024 Telephone [facility] Infection Control Department [address] [place] [address] Angel Sal III, MD from Last 3 [...] - PCV20 or PCV21) 04/30/2022 04/30/2017, 11/17/2014 Alcohol/Substance Use Screening 03/24/2024 Depression Screening and Follow-Up 03/24/2024 Social Drivers of Health Ciara ual Screening 03/24/2024 COVID-19 Vaccine (4 - 2024-2 6 season) 2024 01/16/2021, 05/17/2020, 04/19/2020 Influenza Vaccine (#1) 2024 , 01/13/2023, 11/08/2021, Additional history exists DTaP,Tdap,and Td Vaccines (2 - Td or Tdap) 11/30/2025 12/01/2015 RSV Vaccine (60+ years old a nd patients) (1 - 1-dose 75+ series) 07/16/2042 Zoster Vaccines Completed 11/08/2017, 07/24/2017 Insurance MEDICARE [facility] Care Teams Registered Nurse Fetal Relationship Specialty Start Date End Date Mireya Robledo [address] [place] [address] PCP - General Internal Medicine 11/04/23
== END 2024-11-26 09:44 | disposition home or self-care (01) ==
LOC: HO.HPS 09:17
PROVIDERS: PCP Internal Medicine; Visit Provider Hospitalist
DX: J44.9 Chronic obstructive pulmonary disease, unspecified (principal); R91.8 Other nonspecific abnormal finding of lung field; K21.9 Gastro-esophageal reflux disease without esophagitis; Z11.9 Encounter for screening for infectious and parasitic diseases, unspecified; R76.8 Other specified abnormal immunological findings in serum
CPT/HCPCS: 99214; G2211

== ENCOUNTER 2024-11-29 10:44 | Outpatient (AMB) | payer MEDICARE, MEDICAID, SELFPAY ==
--- OUTSIDE RECORDS SUMMARY | 2024-11-29 12:59 | XMS_ITS | Encounter Summary ---
Author Organization [facility] Address [address] [place] [address] Care Team Providers Care Edge Polisher Name Role Phone Riccardo Robledo MD Primary Care Provider Olga Ochoa MD Unavailable Mina DominguezC Unavailable [phone] Addison Winslow PA-C Unavailable June Denton PA-C Unavailable [phone] Nichole Otto MD Unavailable [phone] Encounter Details Date Type Department Care Team Description 02/10/2020 [facility] Medical Records [address] [place] [address] Abstract, Provider Social History Tobacco Use Types [...] on filedocumented in this encounter Care Teams Edge Polisher Relationship Specialty Start Date End Date Riccardo Robledo, [address] [place] [address] PCP - General Internal Medicine 12/28/19 Olga Ochoa MD [address] [place] [address] Specialist Lung Cancer Compliance Consultant 03/07/21 Mina Dominguez PA-C 299 [facility] [address] [place] [phone] Specialist Thoracic Surgery 04/29/22 Addison Winslow PA-C 175 [facility] [address] [place] [address] Specialist Neurosurgery 05/02/23 June Denton PA-C 175 [facility] [address] [place] [address] Specialist Neurosurgery 05/02/23 Nichole Otto MD [address] [facility] [address] [place] [address] Surgeon Neurosurgery 05/02/23 documented as of this encounter
--- OUTSIDE RECORDS SUMMARY | 2024-11-29 12:59 | XMS_ITS | Encounter Summary ---
Author Organization [facility] Address [address] [place] [address] Care Team Providers Care Lunchroom Mother Name Role Phone Riccardo Robledo MD Primary Care Provider [phone] Olga Ochoa MD Unavailable Mina Dominguez-C Unavailable Addison Winslow PA-C Unavailable [phone] June Denton PA-C Unavailable Nichole Otto MD Unavailable [phone] Encounter Details Date Type Department Care Team Description 12/15/2023 Pt. Non Urgent Medical Question [facility] 175 [facility] [address] [place] [address] Akin Delacruz MD 175 [facility] [address] [place], [place] [phone] Social History Tobacco Use Types Packs/Day Years [...] on filedocumented in this encounter Care Teams Lunchroom Mother Relationship Specialty Start Date End Date Riccardo Robledo MD [address] [place] [address] PCP - General Internal Medicine 12/28/19 Olga Ochoa MD [address] [place] [address] Specialist Lung Cancer Delivery Sales Worker 03/07/21 Mina Dominguez PA-C 299 [facility] [address] [place] [phone] Specialist Thoracic Surgery 04/29/22 Addison Winslow PA-C 175 [facility] [address] [place] [address] Specialist Neurosurgery 05/02/23 June Denton PA-C 175 [facility] [address] [place] [address] Specialist Neurosurgery 05/02/23 Nichole Otto MD 175 [facility] [address] [place] [address] Surgeon Neurosurgery 05/02/23 documented as of this encounter
--- OUTSIDE RECORDS SUMMARY | 2024-11-29 12:59 | XMS_ITS | Encounter Summary ---
Author Organization [facility] Address [address] [place] [address] Care Team Providers Care Motor Vehicle Inspector Name Role Phone Riccardo Robledo MD Primary Care Provider [phone] Olga Ochoa MD Unavailable Mina Dominguez-C Unavailable Addison Winslow PA-C Unavailable [phone] June Denton PA-C Unavailable Nichole Otto MD Unavailable [phone] Encounter Details Date Type Department Care Team Description 12/23/2023 Pt. Non Urgent Medical Question [facility] 175 [facility] [address] [place] [address] Akin Delacruz MD 175 [facility] [address] [place], [place] [phone] Social History Tobacco Use Types Packs/Day Years [...] on filedocumented in this encounter Care Teams Motor Vehicle Inspector Relationship Specialty Start Date End Date Riccardo Robledo MD [address] [place] [address] PCP - General Internal Medicine 12/28/19 Olga Ochoa MD [address] [place] [address] Specialist Lung Cancer Hydroelectric Plant Technician 03/07/21 Mina Dominguez PA-C 299 [facility] [address] [place] [address] Specialist Thoracic Surgery 04/29/22 Addison Winslow PA-C 175 [facility] [address] [place] [address] Specialist Neurosurgery 05/02/23 June Denton PA-C 175 [facility] [address] [place] [address] Specialist Neurosurgery 05/02/23 Nichole Otto MD 175 [facility] [address] [place] [address] Surgeon Neurosurgery 05/02/23 documented as of this encounter
--- OUTSIDE RECORDS SUMMARY | 2024-11-29 12:59 | XMS_ITS | Encounter Summary ---
Author Organization [facility] Address [address] [place] [address] Care Team Providers Care Private Equity Associate Name Role Phone Riccardo Robledo MD Primary Care Provider [phone] Olga Ochoa MD Unavailable Mina Dominguez PA-C Unavailable Addison Winslow PA-C Unavailable [phone] June Denton PA-C Unavailable [phone] Nichole Otto MD Unavailable [phone] Encounter Details Date Type Department Care Team Description 01/15/2024 Pt. Non Urgent Medical Question [facility] [address] [address] Mina Eckert DPM [address] [address] Social History Tobacco Use Types Packs/Day Years [...] on filedocumented in this encounter Care Teams Private Equity Associate Relationship Specialty Start Date End Date Riccardo Robledo MD [address] [place] [address] PCP - General Internal Medicine 12/28/19 Olga Ochoa MD [address] [place] [address] Specialist Lung Cancer Seamer Elastic Band 03/07/21 Mina Dominguez PA-C 299 [facility] [address] [place] [address] Specialist Thoracic Surgery 04/29/22 Addison Winslow PA-C 175 [facility] [address] [place] [address] Specialist Neurosurgery 05/02/23 June Denton PA-C 175 [facility] [address] [place] [address] Specialist Neurosurgery 05/02/23 Nichole Otto MD 175 [facility] [address] [place] [address] Surgeon Neurosurgery 05/02/23 documented as of this encounter
--- OUTSIDE RECORDS SUMMARY | 2024-11-29 12:59 | XMS_ITS | Encounter Summary ---
Author Organization [facility] Address [address] [place] [address] Care Team Providers Care Erosion Control Coordinator Name Role Phone Riccardo Robledo MD Primary Care Provider [phone] Olga Ochoa MD Unavailable Mina Dominguez-C Unavailable Addison Winslow-Will Unavailable June Denton PA-C Unavailable [phone] Nichole Otto MD Unavailable [phone] Encounter Details Date Type Department Care Team Description 12/11/2023 Pt. Non Urgent Medic al Question Adult Medicine - [place] [address] [place] [address] Riccardo Robledo MD [address] [place] [address] Social History Tobacco Use Types Packs/Day Years [...] Telephone Encounter - Carole Connell M.A. - 12/11/2023 2:34 PM EDTFrom: Jv Monroy To: Will Robledo Sent: 12/11/2023 1:49 PM EDT Subject: Blood work DR Swanson please call. Me about my blood work something in the blood work is high and how to treat it documented in this encounter Plan of Treatment Not on file documented as of this encounter Visit Diagnoses Not on filedocumented in this encounter Care Teams Erosion Control Coordinator Relationship Specialty Start Date End Date Riccardo Robledo MD [address] [place] [address] PCP - General Internal Medicine 12/28/19 Olga Ochoa MD [address] [place] [address] Specialist Lung Cancer Final Rail Cutter 03/07/21 Mina Dominguez PA-C 299 [facility] [address] [place] [address] Specialist Thoracic Surgery 04/29/22 Addison Winslow PA-C 175 [facility] [address] [place] [address] Specialist Neurosurgery 05/02/23 June Denton PA-C 175 [facility] [address] [place] [address] Specialist Neurosurgery 05/02/23 Nichole Otto MD 175 [facility] [address] [place] [address] Surgeon Neurosurgery 05/02/23 documented as of this encounter
--- OUTSIDE RECORDS SUMMARY | 2024-11-29 13:00 | XMS_ITS | Encounter Summary ---
Author Organization [facility] Address [address] [place] [address] Care Team Providers Care Parachute Rigger Name Role Phone Aston Daniel NP Primary Care Provider Unavail able Riccardo Robledo MD Primary Care Provider [phone] Olga Ochoa MD Unavailable Mina Dominguez PA-C Unavailable Addison Winslow-C Unavailable [phone] June Denton-C Unavailable Nichole Otto MD Unavailable [phone] Encounter Details Date Type Department Care Team Description 04/26/2019 Hospital Medical Records [address] [place] [address] Liborio Nguyễn MD Social History Tobacco Use [...] on filedocumented in this encounter Care Teams Parachute Rigger Relationship Specialty Start Date End Date Aston Daniel NP PCP - General Family Practice 09/26/17 12/27/19 Riccardo Robledo, [address] [place] [address] PCP - General Internal Medicine 12/28/19 Olga Ochoa MD [address] [place] [address] Specialist Lung Cancer Flight Paramedic 03/07/21 Mina Dominguez PA-C 299 [facility] [address] [place] [address] Specialist Thoracic Surgery 04/29/22 Addison Winslow PA-C 175 [facility] [address] [place] [address] Specialist Neurosurgery 05/02/23 June Denton PA-C [address] [address] Specialist Neurosurgery 05/02/23 Nichole Otto MD 175 [facility] [address] [place] [address] Surgeon Neurosurgery 05/02/23 documented as of this encounter
--- OUTSIDE RECORDS SUMMARY | 2024-11-29 13:00 | XMS_ITS | Encounter Summary ---
Author Organization [facility] Address [address] [place] [address] Care Team Providers Care Sash Finisher Name Role Phone Aston Daniel NP Primary Care Provider Unavail able Riccardo Robledo MD Primary Care Provider Olga Ochoa MD Unavailable Mina Dominguez-C Unavailable [phone] Addison Winslow PA-C Unavailable [phone] June Denton PA-C Unavailable Nichole Otto MD Unavailable [phone] Encounter Details Date Type Department Care Team Description 11/11/2018 Release of Information Medical Records [address] [place] [id number] Abstract, Provider Social History Tobacco Use Types [...] on filedocumented in this encounter Care Teams Sash Finisher Relationship Specialty Start Date End Date Aston Daniel NP PCP - General Family Practice 09/26/17 12/27/19 Riccardo Robledo, [address] [place] [address] PCP - General Internal Medicine 12/28/19 Olga Ochoa MD [address] [place] [address] Specialist Lung Cancer Mixing Technician 03/07/21 Mina Dominguez PA-C [address] [phone] Specialist Thoracic Surgery 04/29/22 Addison Winslow PA-C 175 [facility] [address] [place] [address] Specialist Neurosurgery 05/02/23 June Denton PA-C [address] [address] Specialist Neurosurgery 05/02/23 Nichole Otto MD [address] [address] Surgeon Neurosurgery 05/02/23 documented as of this encounter
--- OUTSIDE RECORDS SUMMARY | 2024-11-29 13:00 | XMS_ITS | Encounter Summary ---
Author Organization [facility] Address [address] [place] [address] Care Team Providers Care Primary Care Nurse Practitioner Name Role Phone Mireya Robledo MD Primary Care Prov ider Reason for Referral * Consultation (Routine) - Authorized Specialty Diagnoses / Procedures Referred By Contac t Referred To Contact Cardiology Diagnoses KATHLEEN (obstructive sleep apnea) Mireya Robledo MD [address] [place] [address] Phone: tel: fax: [address] [address] Phone: tel: Referral ID Status Reason Start Date Expiration Date Visits Requested Visits Authorized [id number] Authorized Specialty Services Required 11/12/2024 11/12/2025 1 1 Reason for Visit * Reason Onset Date Comments Referral 11/03/2024 cardiology Encounter Details Date Type Department Care Team (Late st Contact Info) Description 11/03/2024 Telephone Adult Medicine - [place] [address] [place] [address] Mireya Robledo MD [address] [place], [place] Social History Tobacco Use Types Packs/Day [...] insurance must be obtained and registered in [facility] or their referral can not be processed. Who is calling to request this referral? Pt If the caller is not the patient, what is their name? not applicable Ask the patient WHO referred them to this specialty: Patient self referred FIRST and LAST NAME of SPECIALIST PATIENT is seeing: [facility] does not have a drs name [...] this visit: Initial Visit Address of Specialist: [facility] Phone # of Specialist: [phone] Fax #: (if applicable): [phone] Does patient have an appointment scheduled?: no Date of appointment- (including a retro-request): - Is this appointment related to: Not MVA, worker compensation, or surgery related documented in this encounter Plan of Treatment Upcoming Encounters Date Type Department Care Team (Late st Contact Info) Description 12/09/2024 9:30 AM EDT Office Visit Adult Medicine - [place] [address] [place] [phone] Logan Romero PA [address] [place] [address] 12/15/2024 10:00 AM EDT Office Visit Orthopedic Surgery - [place] [address] 175 [facility] [address] [place] [phone] Mina Eckert, DPM 175 [facility] [address] [place] [phone] 04/07/2025 9:45 AM EST Office Visit Bariatric Surgery - [place] 175 [facility] [address] [place] [address] Sahara Villela MD [address] [place] [phone] Scheduled Referrals Name Type Priority Associated Diagnoses Order Schedule Ambulatory referral to Cardiology Outpatient Referral Routine KATHLEEN (obstructive sleep apnea) Expected: 11/12/2024, Expires: 11/12/2025 documented as of this encounter Visit Diagnoses Diagnosis KATHLEEN (obstructive sleep apnea)- Primary Obstructive sleep apnea (adult) (pediatric) documented in this encounter Care Teams Primary Care Nurse Practitioner Relationship Specialty Start Date End Date Mireya Robledo MD [address] [place] [address] PCP - General Internal Medicine 02/02/24 documented as of this encounter
--- OUTSIDE RECORDS SUMMARY | 2024-11-29 13:00 | XMS_ITS | Encounter Summary ---
Author Organization [facility] Address [address] [place] [address] Care Team Providers Care Machine Brusher Name Role Phone Aston Daniel NP Primary Care Provider Unavail able Riccardo Robledo MD Primary Care Provider Olga Ocoha MD Unavailable Mina Dominguez PA-C Unavailable Addison WinslowC Unavailable [phone] June Denton PA-C Unavailable Nichole Otto MD Unavailable [phone] Encounter Details Date Type Department Care Team Description 08/25/2018 Public Finance Specialist Report Medical Records [address] [place] [address] Abstract, Provider Social History Tobacco Use Types [...] filedocumented in this encounter Care Teams Machine Brusher Relationship Specialty Start Date End Date Aston Daniel NP PCP - General Family Practice 09/26/17 12/27/19 Riccardo Robledo, [address] [place] [address] PCP - General Internal Medicine 12/28/19 Olga Ochoa MD 230 [place] [address] Specialist Lung Cancer Network Relay Tester 03/07/21 Mina Dominguez PA-C 299 [facility] 410 [place] [address] Specialist Thoracic Surgery 04/29/22 Addison Winslow PA-C 175 [facility] 300 [place] [address] Specialist Neurosurgery 05/02/23 June Denton PA-C [address] [address] Specialist Neurosurgery 05/02/23 Nichole Otto MD 175 [facility] 300 [place] [address] Surgeon Neurosurgery 05/02/23 documented as of this encounter
--- OUTSIDE RECORDS SUMMARY | 2024-11-29 13:00 | XMS_ITS | Encounter Summary ---
Author Organization [facility] Address [address] [place] [address] Care Team Providers Care Grading Machine Feeder Name Role Phone Riccardo Robledo MD Primary Care Provider [phone] Olga Ochoa MD Unavailable Mina Dominguez-C Unavailable Addison Winslow-C Unavailable June Denton PA-C Unavailable Nichole Otto MD Unavailable [phone] Encounter Details Date Type Department Care Team Description 03/31/2022 Pt. Non Urgent Medic al Question Adult Medicine - [place] [address] [place] [address] Riccardo Robledo MD 230 [place] [address] Social History Tobacco Use Types Packs/Day Years [...] Encounter - Mary Austin L.P.N. - 04/01/2022 8:14 AM EST From: Jv Monroy To: Will Robledo Sent: 03/31/2022 9:53 AM EST Subject: ER Radhatit DR Latisha Swanson i went to the ER on sat at 900 am they did blood work and x ray and EKG this was on 03/30/22 could you get my record to find out what was my result Thank you Jv Monroy JR Call me At [phone] documented in this encounter Plan of Treatment Not on file documented as of this encounter Visit Diagnoses Not on filedocumented in this encounter Care Teams Grading Machine Feeder Relationship Specialty Start Date End Date Riccardo Robledo MD 230 [place] [address] PCP - General Internal Medicine 12/28/19 Olga Ochoa MD 230 [place] [address] Specialist Lung Cancer Welfare Analyst 03/07/21 Mina Dominguez PA-C 299 [facility] 410 [place] [address] Specialist Thoracic Surgery 04/29/22 Addison Winslow PA-C 175 [facility] [address] [place] [address] Specialist Neurosurgery 05/02/23 June Denton PA-C 175 [facility] [address] [place] [address] Specialist Neurosurgery 05/02/23 Nichole Otto MD 175 [facility] [address] [place] [address] Surgeon Neurosurgery 05/02/23 documented as of this encounter
--- OUTSIDE RECORDS SUMMARY | 2024-11-29 13:00 | XMS_ITS | Encounter Summary ---
Author Organization [facility] Address [address] [place] [address] Care Team Providers Care Lathmaker Name Role Phone Riccardo Robledo MD Primary Care Provider [phone] Olga Ochoa MD Unavailable Mina Dominguez PA-C Unavailable Addison Winslow PA-C Unavailable June Denton PA-C Unavailable Nichole Otto MD Unavailable [phone] Encounter Details Date Type Department Care Team Description 05/08/2023 Refill Adult Medicine - [address] [address] Logan Romero PA-C 230 [place] [address] Social History Tobacco Use Types Packs/Day Years [...] on filedocumented in this encounter Care Teams Lathmaker Relationship Specialty Start Date End Date Riccardo Robledo MD [address] [place] [address] PCP - General Internal Medicine 12/28/19 Olga Ochoa MD 230 [place] [address] Specialist Lung Cancer Summer Camp Counselor 03/07/21 Mina Dominguez PA-C 299 [facility] 410 [place] [address] Specialist Thoracic Surgery 04/29/22 Addison Winslow PA-C 175 [facility] 300 [place] [address] Specialist Neurosurgery 05/02/23 June Denton PA-C 175 [facility] 300 [place] [address] Specialist Neurosurgery 05/02/23 Nichole Otto MD 175 [facility] 300 [place] [address] Surgeon Neurosurgery 05/02/23 documented as of this encounter
--- OUTSIDE RECORDS SUMMARY | 2024-11-29 13:00 | XMS_ITS | Encounter Summary ---
Author Organization [facility] Address [address] [place] [address] Care Team Providers Care Stamp Mounter Name Role Phone Riccardo Robledo MD Primary Care Provider [phone] Olga Ochoa MD Unavailable Mina Dominguez PA-C Unavailable Addison Winslow-C Unavailable June Denton-Will Unavailable Nichole Otto MD Unavailable [phone] Encounter Details Date Type Department Care Team Description 04/02/2022 Telephone Adult Medicine [facility] [address] [place], [place] [phone] Riccardo Robledo MD [address] [place], [place] [phone] Social History Tobacco Use Types Packs/Day Years [...] on filedocumented in this encounter Care Teams Stamp Mounter Relationship Specialty Start Date End Date Riccardo Robledo MD 230 [place] [address] PCP - General Internal Medicine 12/28/19 Olga Ochoa MD 230 [place] [address] Specialist Lung Cancer Milling Machine Tender 03/07/21 Mina Dominguez PA-C 299 [facility] 410 [place] [address] Specialist Thoracic Surgery 04/29/22 Addison Winslow PA-C [address] [address] Specialist Neurosurgery 05/02/23 June Denton PA-C 175 [facility] 300 [place] [address] Specialist Neurosurgery 05/02/23 Nichole Otto MD [address] [address] Surgeon Neurosurgery 05/02/23 documented as of this encounter
--- OUTSIDE RECORDS SUMMARY | 2024-11-29 13:00 | XMS_ITS | Encounter Summary ---
Author Organization [facility] Address [address] [place] [address] Care Team Providers Care Research Physicist Name Role Phone Riccardo Robledo MD Primary Care Provider Olga Ochoa MD Unavailable Mina Dominguez PA-C Unavailable Addison Winslow PA-C Unavailable June Denton-C Unavailable Nichole Otto MD Unavailable [phone] Reason for Visit * Reason Onset Date Comments Letter 06/17/2023 Encounter Details Date Type Department Care Team Description 06/17/2023 Telephone Adult Medicine - [employer] [address] [place], [place] [phone] Riccardo Robledo MD 230 [place], [place] [phone] Letter Social History Tobacco Use Types Packs/Day [...] on filedocumented in this encounter Care Teams Research Physicist Relationship Specialty Start Date End Date Riccardo Robledo MD 230 [place] [address] PCP - General Internal Medicine 12/28/19 Olga Ochoa MD 230 [place] [address] Specialist Lung Cancer Market Research Specialist 03/07/21 Mina Dominguez PA-C 299 [facility] 410 [place] [address] Specialist Thoracic Surgery 04/29/22 Addison Winslow PA-C 175 [facility] [address] [place] [address] Specialist Neurosurgery 05/02/23 June Denton PA-C 175 [facility] [address] [place] [address] Specialist Neurosurgery 05/02/23 Nichole Otto MD [address] [place] [address] Surgeon Neurosurgery 05/02/23 documented as of this encounter
--- OUTSIDE RECORDS SUMMARY | 2024-11-29 13:00 | XMS_ITS | Encounter Summary ---
Author Organization [facility] Address [address] [place] [address] Care Team Providers Care Brazer Production Line Name Role Phone Riccardo Robledo MD Primary Care Provider [phone] Olga Ochoa MD Unavailable Mina Dominguez PA-C Unavailable [phone] Addison Winslow PA-C Unavailable June Denton PA-C Unavailable Nichole Otto MD Unavailable [phone] Encounter Details Date Type Department Care Team Description 05/24/2021 Orders Only Medical Records [address] [place] [address] Mina Dominguez PA-C [address] [address] Social History Tobacco Use Types Packs/Day Years [...] Name Priority Date/Time Associated Diagnosis Comments OUTSIDE BARIUM SWALLOW Routine 05/24/2021 documented in this encounter Results * OUTSIDE BARIUM SWALLOW (05/24/2021) Mina Dominguez PA-C RADIOLOGY documented in this encounter Visit Diagnoses Not on filedocumented in this encounter Care Teams Brazer Production Line Relationship Specialty Start Date End Date Riccardo Robledo MD 230 [place] [address] PCP - General Internal Medicine 12/28/19 Olga Ochoa MD 230 [place] [address] Specialist Lung Cancer Masking Machine Operator 03/07/21 Mina Dominguez PA-C 299 [facility] 410 [place] [address] Specialist Thoracic Surgery 04/29/22 Addison Winslow PA-C [address] [address] Specialist Neurosurgery 05/02/23 June Denton PA-C [address] [address] Specialist Neurosurgery 05/02/23 Nichole Otto MD 175 [facility] 300 [place] [address] Surgeon Neurosurgery 05/02/23 documented as of this encounter
--- OUTSIDE RECORDS SUMMARY | 2024-11-29 13:00 | XMS_ITS | Encounter Summary ---
Author Organization [facility] Address [address] [place] [address] Care Team Providers Care Bore Miner Operator Name Role Phone Aston Daniel NP Primary Care Provider Unavail able Riccardo Robledo MD Primary Care Provider [phone] Olga Ochoa MD Unavailable Mina Dominguez PA-C Unavailable Addison Winslow-C Unavailable June Denton-Will Unavailable Nichole Otto MD Unavailable [phone] Encounter Details Date Type Department Care Team Description 06/23/2019 Cardiovascular Tech Report Medical Records [address] [place] [address] Richie Alba MD, PHD Social History Tobacco [...] on filedocumented in this encounter Care Teams Bore Miner Operator Relationship Specialty Start Date End Date Aston Daniel NP PCP - General Family Practice 09/26/17 12/27/19 Riccardo Robledo, [address] [place] [address] PCP - General Internal Medicine 12/28/19 Olga Ochoa MD 230 [place] [address] Specialist Lung Cancer Office Support Assistant 03/07/21 Mina Dominguez PA-C 299 [facility] 410 [place] [address] Specialist Thoracic Surgery 04/29/22 Addison Winslow PA-C 175 [facility] 300 [place] [address] Specialist Neurosurgery 05/02/23 June Denton PA-C [address] [address] Specialist Neurosurgery 05/02/23 Nichole Otto MD [address] [address] Surgeon Neurosurgery 05/02/23 documented as of this encounter
--- OUTSIDE RECORDS SUMMARY | 2024-11-29 13:00 | XMS_ITS | Encounter Summary ---
Author Organization [facility] Address [address] [place] [address] Care Team Providers Care Supervisor Rice Milling Name Role Phone Riccardo Robledo MD Primary Care Provider [phone] Olga Ochoa MD Unavailable Mina Dominguez-C Unavailable Addison Winslow PACecileC Unavailable June Denton PA-C Unavailable [phone] Nichole Otto MD Unavailable [phone] Encounter Details Date Type Department Care Team Description 06/16/2023 SCAN [facility] 175 [facility] 160 [place] [address] Akin Delacruz MD [address] [facility] [address] [place], [place] [phone] Social History Tobacco Use Types Packs/Day Years [...] filedocumented in this encounter Care Teams Supervisor Rice Milling Relationship Specialty Start Date End Date Riccardo Robledo MD 230 [place] [address] PCP - General Internal Medicine 12/28/19 Olga Ochoa MD 230 [place] [address] Specialist Lung Cancer Chair Frame Builder 03/07/21 Mina Dominguez PA-C 299 [facility] 410 [place] [address] Specialist Thoracic Surgery 04/29/22 Addison Winslow PA-C 175 [facility] [address] [place] [address] Specialist Neurosurgery 05/02/23 June Denton PA-C 175 [facility] 300 [place] [address] Specialist Neurosurgery 05/02/23 Nichole Otto MD 175 [facility] 300 [place] [address] Surgeon Neurosurgery 05/02/23 documented as of this encounter
--- OUTSIDE RECORDS SUMMARY | 2024-11-29 13:00 | XMS_ITS | Encounter Summary ---
Author Organization [facility] Address [address] [place] [address] Care Team Providers Care Environmental Monitoring Specialist Name Role Phone Aston Daniel NP Primary Care Provider Unavail able Riccardo Robledo MD Primary Care Provider [phone] Olga Ochoa MD Unavailable Mina Dominguez PA-C Unavailable Addison Winslow PA-C Unavailable June Denton-C Unavailable [phone] Nichole Otto MD Unavailable [phone] Reason for Visit * Reason Onset Date Comments Provider Call Back 08/12/2018 requesting cl arification of ER records Encounter Details Date Type Department Care Team Description 08/12/2018 Telephone Pulmonology [address] [place] [address] Johnathan Cerda MD Provider Call Back (requesting clarification of ER records) Social History Tobacco Use Types Packs/Day Years [...] encounter Miscellaneous Notes * Telephone Encounter - Stacy Trejo - 08/12/2018 3:54 PM EDT Patient called again, anxious about results and would like Dr Cerda to call his cell phone [phone]. * Telephone Encounter - Suni Matthews M.A. - 08/12/2018 3:42 PM EDT I called the patient who was adamant that someone tell him his chest Xray. I tried to explain that I could not read it but he was aleady on the phone with the ER nurse ( I could hear her speaking to him about the Xray). I then told him I would send message to the Dr who would call him and let him know. He asked to speak with a Daylight Driller and when I told him Ainsley Callaway was busy at this time, hestated he was on his way here and someone better tell him about his X-ray. * Telephone Encounter - Pallavi Bangura - 08/12/2018 3:24 PM EDT Patient calling, waiting by phone, needs a call back today is getting very anxious. * Telephone Encounter - Maren Aranda - 08/12/2018 1:34 PM EDT Patient stopped and dropped off Nicholas Haddox Recordsy records (I put it in the provider bin) and would like a phonecall today to clarify Xray findings. He is nervous that it is a new finding as opposed to what has already shown in preivious scans. Please review and reach out to patient. documented in this encounter Plan of Treatment Not on file documented as of this encounter Visit Diagnoses Not on filedocumented in this encounter Care Teams Environmental Monitoring Specialist Relationship Specialty Start Date End Date Aston Daniel NP PCP - General Family Practice 09/26/17 12/27/19 Riccardo Robledo, [facility] [place] [address] PCP - General Internal Medicine 12/28/19 Olga Ochoa MD 230 [place] [address] Specialist Lung Cancer Knitting Machine Fixer 03/07/21 Mina Dominguez PA-C 299 [facility] 410 [place] [address] Specialist Thoracic Surgery 04/29/22 Addison Winslow PA-C 175 [facility] [address] [place] [address] Specialist Neurosurgery 05/02/23 June Denton PA-C [address] [address] Specialist Neurosurgery 05/02/23 Nichole Otto MD 175 [facility] 300 [place] [address] Surgeon Neurosurgery 05/02/23 documented as of this encounter
--- OUTSIDE RECORDS SUMMARY | 2024-11-29 13:00 | XMS_ITS | Encounter Summary ---
Author Organization [facility] Address [address] [place] [address] Care Team Providers Care Carver And Checkerer Specials Name Role Phone Riccardo Robledo MD Primary Care Provider [phone] Olga Ohcoa MD Unavailable Mina Dominguez PA-C Unavailable [phone] Addison Winslow PA-C Unavailable June Denton PA-C Unavailable Nichole Otto MD Unavailable [phone] Encounter Details Date Type Department Care Team Description 03/28/2022 Pt. Non Urgent Medic al Question Adult Medicine - [address] [address] Logan Romero PA-C [address] [place] [address] Social History Tobacco Use Types Packs/Day Years [...] L.P.N. - 03/29/2022 8:37 AM EST From: Jv Monroy To: Danisha Romero Sent: 03/28/2022 7:42 [...] and he order a eating test at [facility] for next month on the six I will see you tomorrow my mom has a appointment with you tomorrow documented in this encounter Plan of Treatment Not on file documented as of this encounter Visit Diagnoses Not on filedocumented in this encounter Care Teams Carver And Checkerer Specials Relationship Specialty Start Date End Date Riccardo Robledo MD 230 [place] [address] PCP - General Internal Medicine 12/28/19 Olga Ochoa MD 230 [place] [address] Specialist Lung Cancer Freight Engineer 03/07/21 Mina Dominguez PA-C 299 [facility] 410 [place] [address] Specialist Thoracic Surgery 04/29/22 Addison Winslow PA-C 175 [facility] 300 [place] [address] Specialist Neurosurgery 05/02/23 June Denton PA-C 175 [facility] 300 [place] [address] Specialist Neurosurgery 05/02/23 Nichole Otto MD [address] [place] [address] 300 [place] [address] Surgeon Neurosurgery 05/02/23 documented as of this encounter
--- OUTSIDE RECORDS SUMMARY | 2024-11-29 13:00 | XMS_ITS | Encounter Summary ---
Author Organization [facility] Address [address] [place] [address] Care Team Providers Care Manager Distribution Name Role Phone Riccardo Robledo MD Primary Care Provider [phone] Olga Ochoa MD Unavailable Mina Dominguez PA-C Unavailable Addison Winslow PA-C Unavailable June Denton PA-C Unavailable Nichole Otto MD Unavailable [phone] Encounter Details Date Type Department Care Team Description 02/28/2021 Orders Only Medical Records [address] [place] [address] Olga Ochoa MD [address] [place] [id number] Social History Tobacco Use Types Packs/Day Years [...] have Coronavirus / COVID-19? No / Unsure 02/20/2021 9:42 AM EST documented as of this encounter Plan of Treatment Not on file documented as of this encounter Procedures Procedure Name Priority Date/Time Associated Diagnosis Comments OUTSIDE NUCLEAR MEDICINE Routine 02/28/2021 documented in this encounter Results * OUTSIDE NUCLEAR MEDICINE (02/28/2021) Olga Ochoa MD RADIOLOGY documented in this encounter Visit Diagnoses Not on filedocumented in this encounter Care Teams Manager Distribution Relationship Specialty Start Date End Date Riccardo Robledo MD [address] [place] [address] PCP - General Internal Medicine 12/28/19 Olga Ochoa MD 230 [place] [address] Specialist Lung Cancer Curtain Stretcher 03/07/21 Mina Dominguez PA-C [address] [address] Specialist Thoracic Surgery 04/29/22 Addison Winslow PA-C 175 [facility] [address] [place] [address] Specialist Neurosurgery 05/02/23 June Denton PA-C 175 [facility] 300 [place] [address] Specialist Neurosurgery 05/02/23 Nichole Otto MD 175 [facility] 300 [place] [address] Surgeon Neurosurgery 05/02/23 documented as of this encounter
--- OUTSIDE RECORDS SUMMARY | 2024-11-29 13:00 | XMS_ITS | Encounter Summary ---
Author Organization [facility] Address [address] [place] [address] Care Team Providers Care Vegetable Buncher Name Role Phone Mireya Robledo MD Primary Care Prov ider Reason for Visit * Reason Onset Date Comments Allergies 11/03/2024 Encounter Details Date Type Department Care Team (Late st Contact Info) Description 11/03/2024 Telephone Adult Medicine [address] [address] Ree Beatty [place] Social History Tobacco Use [...] 11/03/2024 8:49 AM EDT Patient called, his Acupuncturist retired. He has been without his allergy [...] AM EDT Office Visit Adult Medicine [facility] [address] [place] [phone] Logan Romero PA 230 [place] [address] 12/15/2024 10:00 AM EDT Office Visit Orthopedic Surgery [place] [address] 175 [facility] 250 [place] [phone] Mina Eckert DPDanisha [address] [phone] 04/07/2025 9:45 AM EST Office Visit Bariatric Surgery [facility] 175 [facility] [address] [place] [phone] Sahara Villela MD 230 [place] [address] documented as of this encounter Visit Diagnoses Not on filedocumented in this encounter Discontinued Medications Medication Sig Discontinue Reason Start Date End Da te levocetirizine (XYZAL) 5 mg tablet TAKE 1 TABLET BY MOUTH EVERY DAY IN THE EVENING Reorder 05/21/2024 11/03/2024 documented as of this encounter Care Teams Vegetable Buncher Relationship Specialty Start Date End Date Mireya Robledo MD 230 [place] [address] PCP - General Internal Medicine 02/02/24 documented as of this encounter
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
--- OUTSIDE RECORDS SUMMARY | 2024-11-29 13:00 | XMS_ITS | Encounter Summary ---
Author Organization [facility] Address [address] [place] [address] Care Team Providers Care Manager Foreign Name Role Phone Riccardo Robledo MD Primary Care Provider [phone] Olga Ochoa MD Unavailable Mina Dominguez-C Unavailable [phone] Addison Winslow-Will Unavailable June Denton PA-C Unavailable Nichole Otto MD Unavailable [phone] Encounter Details Date Type Department Care Team Description 06/16/2023 Pt. Non Urgent Medic al Question Adult Medicine - [place] [address] [place] [address] Riccardo Robledo MD [address] [place] [address] Social History Tobacco Use Types Packs/Day Years [...] Telephone Encounter - Mireya Figueroa M.A. - 06/16/2023 11:52 AM EDTFrom: Jv Monroy To: Will Robledo Sent: 06/16/2023 10:58 AM EDT Subject: Need to talk to you DR Swanson call me when you not busy Jv Monroy JR [phone] documented in this encounter Plan of Treatment Not on file documented as of this encounter Visit Diagnoses Not on filedocumented in this encounter Care Teams Manager Foreign Relationship Specialty Start Date End Date Riccardo Robledo MD [address] [place] [address] PCP - General Internal Medicine 12/28/19 Olga Ochoa MD [address] [place] [address] Specialist Lung Cancer Mining Plant Operator 03/07/21 Mina Dominguez PA-C [address] [phone] Specialist Thoracic Surgery 04/29/22 Addison Winslow PA-C 175 [facility] [address] [place] [address] Specialist Neurosurgery 05/02/23 June Denton PA-C 175 [facility] [address] [place] [address] Specialist Neurosurgery 05/02/23 Nichole Otto MD 175 [facility] [address] [place] [address] Surgeon Neurosurgery 05/02/23 documented as of this encounter
--- OUTSIDE RECORDS SUMMARY | 2024-11-29 13:00 | XMS_ITS | Encounter Summary ---
Author Organization [facility] Address [address] [place] [address] Care Team Providers Care Over Short And Damage Clerk Name Role Phone Riccardo Robledo MD Primary Care Provider Olga Ochoa MD Unavailable Mina Dominguez PA-C Unavailable Addison Winslow PA-C Unavailable [phone] June Denton PA-C Unavailable [phone] Nichole Otto MD Unavailable [phone] Reason for Visit * Reason Comments E-prescribe Rx Request Encounter Details Date Type Department Care Team Description 05/04/2021 Refill Adult Medicine - [address] [address] Logan Romero PA-C [address] [place] [address] E-prescribe Rx Request Social History Tobacco Use [...] on filedocumented in this encounter Care Teams Over Short And Damage Clerk Relationship Specialty Start Date End Date Riccardo Robledo MD 230 [place] [address] PCP - General Internal Medicine 12/28/19 Olga Ochoa MD [address] [place] [address] Specialist Lung Cancer Sulphate Tester 03/07/21 Mina Dominguez PA-C 299 [facility] [address] [place] [address] Specialist Thoracic Surgery 04/29/22 Addison Winslow PA-C 175 [facility] [address] [place] [address] Specialist Neurosurgery 05/02/23 June Denton PA-C 175 [facility] 300 [place] [address] Specialist Neurosurgery 05/02/23 Nichole Otto MD 175 [facility] [address] [place] [address] Surgeon Neurosurgery 05/02/23 documented as of this encounter
--- OUTSIDE RECORDS SUMMARY | 2024-11-29 13:00 | XMS_ITS | Encounter Summary ---
Author Organization [facility] Address [address] [place] [address] Care Team Providers Care Window Assembler Name Role Phone Riccardo Robledo MD Primary Care Provider Olga Ochoa MD Unavailable Mina Dominguez PA-C Unavailable [phone] Addison Winslow PA-C Unavailable [phone] June Denton PA-C Unavailable [phone] Nichole Otto MD Unavailable [phone] Encounter Details Date Type Department Care Team Description 02/14/2021 [facility] Medical Records [address] [place] [address] Abstract, Provider Social History Tobacco Use Types [...] on filedocumented in this encounter Care Teams Window Assembler Relationship Specialty Start Date End Date Riccardo Robledo MD 230 [place] [address] PCP - General Internal Medicine 12/28/19 Olga Ochoa MD [address] [place] [address] Specialist Lung Cancer Pen Tender 03/07/21 Mina Dominguez PA-C 299 [facility] [address] [place] [address] Specialist Thoracic Surgery 04/29/22 Addison Winslow PA-C 175 [facility] [address] [place] [address] Specialist Neurosurgery 05/02/23 June Denton PA-C 175 [facility] [address] [place] [address] Specialist Neurosurgery 05/02/23 Nichole Otto MD 175 [facility] [address] [place] [address] Surgeon Neurosurgery 05/02/23 documented as of this encounter
--- OUTSIDE RECORDS SUMMARY | 2024-11-29 13:00 | XMS_ITS | Encounter Summary ---
Author Organization [facility] Address [address] [place] [address] Care Team Providers Care Sandwich Peddler Name Role Phone Community, Pcp Primary Care Provider UnavailSolo Jamil Primary Care Provider Unav ailable Aston Daniel NP Primary Care Provider Unavail able Riccardo Robledo MD Primary Care Provider [phone] Olga Ochoa MD Unavailable Mina Dominguez PA-C Unavailable Addison Winslow PA-C Unavailable [phone] June Denton PA-C Unavailable Nichole Otto MD Unavailable [phone] Encounter Details Date Type Department Care Team Description 01/11/2010 [employer] Impregnating Range Tender Report Medical Records [address] [place] [address] Abstract, Provider Social History Tobacco Use Types Packs/Day Years Used Date Smoking Tobacco: Every Day Cigarettes 1 25 Alcohol Use Standard Drinks/Week [...] on filedocumented in this encounter Care Teams Sandwich Peddler Relationship Specialty Start Date End Date Community, Pcp PCP - General 02/20/10 09/25/17 Solo Lozada PCP - General 03/24/05 02/19/10 Aston Daniel NP PCP - General Family Practice 09/26/17 12/27/19 Riccardo Robledo MD 230 [place] [address] PCP - General Internal Medicine 12/28/19 Olga Ochoa MD 230 [place] [address] Specialist Lung Cancer Adhesive Bandage Machine Operator 03/07/21 Mina Dominguez PA-C [address] [phone] Specialist Thoracic Surgery 04/29/22 Addison Winslow PA-C 175 [facility] 300 [place] [address] Specialist Neurosurgery 05/02/23 June Denton PA-C [address] [address] Specialist Neurosurgery 05/02/23 Nichole Otto MD [address] [address] Surgeon Neurosurgery 05/02/23 documented as of this encounter
--- OUTSIDE RECORDS SUMMARY | 2024-11-29 13:00 | XMS_ITS | Encounter Summary ---
Author Organization [facility] Address [address] [place] [address] Care Team Providers Care Acute Care Nurse Practitioner Name Role Phone Aston Daniel NP Primary Care Provider Unavail able Riccardo Robledo MD Primary Care Provider [phone] Olga Ochoa MD Unavailable Mina Dominguez PA-C Unavailable Addison Winslow PA-C Unavailable June Denton-C Unavailable [phone] Nichole Otto MD Unavailable [phone] Reason for Visit * Reason Onset Date Comments Medication 05/06/2018 Encounter Details Date Type Department Care Team Description 05/06/2018 Telephone Pulmonology - [address] [place] [address] Johnathan Cerda MD Medication Social History Tobacco Use Types Packs/Day [...] encounter Miscellaneous Notes * Telephone Encounter - Xena Prashant - 05/06/2018 3:45 PM EST Patient its calling because pharmacy has her prescription for budesonide- formoterol (SYMBICORT) 80-4.5 MCG/ACT inhaler But she want the lower dose of the medication documented in this encounter Plan of Treatment Not on file documented as of this encounter Visit Diagnoses Not on filedocumented in this encounter Care Teams Acute Care Nurse Practitioner Relationship Specialty Start Date End Date Aston Daniel NP PCP - General Family Practice 09/26/17 12/27/19 Riccardo Robledo MD 230 [place] [address] PCP - General Internal Medicine 12/28/19 Olga Ochoa MD 230 [place] [address] Specialist Lung Cancer Watch Supervisor 03/07/21 Mina Dominguez PA-C [address] [phone] Specialist Thoracic Surgery 04/29/22 Addison Winslow PA-C 175 [facility] [address] [place] [address] Specialist Neurosurgery 05/02/23 June Denton PA-C [address] [address] Specialist Neurosurgery 05/02/23 Nichole Otto MD [address] [address] Surgeon Neurosurgery 05/02/23 documented as of this encounter
--- OUTSIDE RECORDS SUMMARY | 2024-11-29 13:00 | XMS_ITS | Encounter Summary ---
Author Organization [facility] Address [address] [place] [address] Care Team Providers Care Snack Foods Mixer Operator Name Role Phone Riccardo Robledo MD Primary Care Provider Olga Ochoa MD Unavailable Mina Dominguez PA-C Unavailable Addison Winslow PA-C Unavailable June Denton-Will Unavailable Nichole Otto MD Unavailable [phone] Reason for Visit * Reason Comments E-prescribe Rx Request Encounter Details Date Type Department Care Team Description 05/22/2021 Refill Adult Medicine - [place] [address] [place] [address] Riccardo Robledo, [address] [place] [address] E-prescribe Rx Request Social History Tobacco Use [...] Telephone Encounter - Pallavi Finley M.A. - 05/24/2021 8:45 AM EST Shilo - 05/14/21 pre op Nov - 06/19/21 documented in this encounter Plan of Treatment Not on file documented as of this encounter Visit Diagnoses Not on filedocumented in this encounter Care Teams Snack Foods Mixer Operator Relationship Specialty Start Date End Date Riccardo Robledo MD [address] [place] [address] PCP - General Internal Medicine 12/28/19 Olga Ochoa MD [address] [place] [address] Specialist Lung Cancer Vocational Aide 03/07/21 Mina Dominguez PA-C [address] [address] Specialist Thoracic Surgery 04/29/22 Addison Winslow PA-C 175 [facility] [address] [place] [address] Specialist Neurosurgery 05/02/23 June Denton PA-C 175 [facility] [address] [place] [address] Specialist Neurosurgery 05/02/23 Nichole Otto MD 175 [facility] [address] [place] [address] Surgeon Neurosurgery 05/02/23 documented as of this encounter
--- OUTSIDE RECORDS SUMMARY | 2024-11-29 13:00 | XMS_ITS | Encounter Summary ---
Author Organization [facility] Address [address] [place] [address] Care Team Providers Care Waterworks Operator Name Role Phone Riccardo Robledo MD Primary Care Provider [phone] Olga Ochoa MD Unavailable Mina Dominguez-C Unavailable Addison Winslow-C Unavailable June Denton PA-C Unavailable Nichole Otto MD Unavailable [phone] Encounter Details Date Type Department Care Team Description 04/01/2022 Pt. Non Urgent Medic al Question Adult Medicine - [place] [address] [place] [address] Riccardo Robledo MD [address] [place] [address] Social History Tobacco Use Types Packs/Day Years [...] 04/01/2022 1:40 PM EST Subject: Results from [facility] Could you tell me my results from Friday ER visit my blood work and my EKG I saw the x-ray results you sent me but I don't have the results for my blood work or EKG let me know how that came out this was done at [facility] on 03/30/22 in the morning documented in this encounter Plan of Treatment Not on file documented as of this encounter Visit Diagnoses Not on filedocumented in this encounter Care Teams Waterworks Operator Relationship Specialty Start Date End Date Riccardo Robledo MD [address] [place] [address] PCP - General Internal Medicine 12/28/19 Olga Ochoa MD [address] [place] [address] Specialist Lung Cancer Foreign Language Teacher 03/07/21 Mina Dominguez PA-C [address] [address] Specialist Thoracic Surgery 04/29/22 Addison Winslow PA-C 175 [facility] [address] [place] [address] Specialist Neurosurgery 05/02/23 June Denton PA-C 175 [facility] [address] [place] [address] Specialist Neurosurgery 05/02/23 Nichole Otto MD 175 [facility] [address] [place] [address] Surgeon Neurosurgery 05/02/23 documented as of this encounter
--- OUTSIDE RECORDS SUMMARY | 2024-11-29 13:00 | XMS_ITS | Encounter Summary ---
Author Organization [facility] Address [address] [place] [address] Care Team Providers Care Chrome Tanner Name Role Phone Riccardo Robledo MD Primary Care Provider Olga Ochoa MD Unavailable Mina Dominguez PA-C Unavailable Addison Winslow PA-C Unavailable June Denton-Will Unavailable Nichole Otto MD Unavailable [phone] Reason for Visit * Reason Onset Date Comments Constipation 04/11/2021 Encounter Details Date Type Department Care Team Description 04/11/2021 Telephone Adult Medicine - [place] [address] [place], [place] [phone] Riccardo Robledo MD [address] [place], [place] [address] Constipation Social History Tobacco Use Types Packs/Day Years [...] encounter Miscellaneous Notes * Telephone Encounter - Raymundo Stovall LPN - 04/11/2021 11:39 AM EST Left message for pt to please return our call * Telephone Encounter - Riccardo Robledo MD - 04/11/2021 11:18 AM EST I think he is having an anxiety attack. 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 * Telephone Encounter - Raymundo Stovall LPN - 04/11/2021 9:18 AM EST Pt called is requesting something be prescribed for his constipation due to the pain medications , pt is also worried about his surgery being cancelled , pt states that it has been cancelled twice and he has to keep going to the er because of how he has been feeling and having chest pain , triage will obtain er reports from yesterday and the day before at pt's request for PCP to view , pt is wondering if something bad is going to have to happen before he can have this surgery * Telephone Encounter - Lissa Francis - 04/11/2021 8:37 AM EST Symptoms patient is presenting: Pt calling stating he called last week to have medication sent to [facility] to help with constipation, no record of call, pt requests call back concerning this. Pt also seenat [facility] ER on 04-09-21 and 04-10-21 re: heart palpitations, wheezing, and problems w/his esophagus- pt is concerned as his surgery concerning has be also postponed to 05-23-21. Patient informed a message is being be sent to their care team triage nurse, but patient has the option to seek care at an ER/ urgent care facility is open to them and a triage nurse will be reachingout to them within 24 hours of this call. Patient informed a message is being be sent to their care team triage nurse, but patient has the option to seek care at an ER/ urgent care facility is open to them and a triage nurse will be reachingout to them within 24 hours of this call. For ALL patients calling to schedule any [...] traveled recently to another state outside of [place], [place], [place], [place], [place], [place], [place]? NO o If yes, did you quarantine [...] 3rd libertarian insurance information Date of accident/Injury: How long has patient had these symptoms?: 1 - 2 weeks PCP: Mireya Robledo [place] / [place] / Product Type: MEDICARE [id number] documented in this encounter Plan of Treatment Not on file documented as of this encounter Visit Diagnoses Diagnosis Therapeutic opioid induced constipation- Primary documented in this encounter Care Teams Chrome Tanner Relationship Specialty Start Date End Date Riccardo Robledo MD [address] [place] [address] PCP - General Internal Medicine 12/28/19 Olga Ochoa MD [address] [place] [address] Specialist Lung Cancer Dance Critic 03/07/21 Mina Dominguez PA-C 299 [facility] [address] [place] [address] Specialist Thoracic Surgery 04/29/22 Addison Winslow PA-C 175 [facility] [address] [place] [address] Specialist Neurosurgery 05/02/23 June Denton PA-C 175 [facility] [address] [place] [address] Specialist Neurosurgery 05/02/23 Nichole Otto MD 175 [facility] [address] [place] [address] Surgeon Neurosurgery 05/02/23 documented as of this encounter
--- OUTSIDE RECORDS SUMMARY | 2024-11-29 13:00 | XMS_ITS | Encounter Summary ---
Author Organization [facility] Address [address] [place] [address] Care Team Providers Care Sandstone Inspector Repairer Name Role Phone Aston Daniel NP Primary Care Provider Unavail able Riccardo Robledo MD Primary Care Provider Olga Ochoa MD Unavailable Mina Dominguez PA-C Unavailable [phone] Addison Winslow PA-C Unavailable [phone] June Denton-C Unavailable Nichole Otto MD Unavailable [phone] Encounter Details Date Type Department Care Team Description 11/02/2018 Telephone Adult Medicine - [place] [address] [place], [place] [id number] Aston Daniel NP Social History Tobacco Use [...] on filedocumented in this encounter Care Teams Sandstone Inspector Repairer Relationship Specialty Start Date End Date Aston Daniel NP PCP - General Family Practice 09/26/17 12/27/19 Riccardo Robledo, [address] [place] [address] PCP - General Internal Medicine 12/28/19 Olga Ochoa MD [address] [place] [address] Specialist Lung Cancer Service Counselor 03/07/21 Mina Dominguez PA-C 299 [facility] [address] [place] [address] Specialist Thoracic Surgery 04/29/22 Addison Winslow PA-C 175 [facility] [address] [place] [address] Specialist Neurosurgery 05/02/23 June Denton PA-C 175 [facility] [address] [place] [address] Specialist Neurosurgery 05/02/23 Nichole Otto MD 175 [facility] 300 [place] [address] Surgeon Neurosurgery 05/02/23 documented as of this encounter
--- OUTSIDE RECORDS SUMMARY | 2024-11-29 13:00 | XMS_ITS | Encounter Summary ---
Author Organization [facility] Address [address] [place] [address] Care Team Providers Care Manager Simulation Name Role Phone Aston Daniel NP Primary Care Provider Unavail able Riccardo Rolbedo MD Primary Care Provider [phone] Olga Ochoa MD Unavailable Mina Dominguez PA-C Unavailable [phone] Addison Winslow PA-C Unavailable [phone] June Denton-C Unavailable [phone] Nichole Otto MD Unavailable [phone] Reason for Visit * Reason Onset Date Comments other 04/01/2018 Encounter Details Date Type Department Care Team Description 04/01/2018 Telephone Pulmonology - [address] [place] [address] Johnathan Cerda MD other Social [...] so he went to the ER at [facility].they did an xray and everything was ok.his sat there was 100% he wanted to know why he feels SOB. He has pulm rehab tomorrow I told him if they have concerns about his breathing they will notify us. * Telephone Encounter - Xena Cerda - 04/01/2018 1:00 PM EST Patient its calling to Nicole he was in the hospital [facility] only ER due to oxygen level. On 03/31 yesterday Can't give him a call he has some questions documented in this encounter Plan of Treatment Not on file documented as of this encounter Visit Diagnoses Not on filedocumented in this encounter Care Teams Manager Simulation Relationship Specialty Start Date End Date Aston Daniel NP PCP - General Family Practice 09/26/17 12/27/19 Riccardo Robledo MD [address] [place] [address] PCP - General Internal Medicine 12/28/19 Olga Ochoa MD [address] [place] [address] Specialist Lung Cancer Freight Booker 03/07/21 Mina Dominguez PA-C 299 [facility] [address] [place] [address] Specialist Thoracic Surgery 04/29/22 Addison Winslow PA-C 175 [facility] [address] [place] [address] Specialist Neurosurgery 05/02/23 June Denton PA-C 175 [facility] [address] [place] [address] Specialist Neurosurgery 05/02/23 Nichole Otto MD 175 [facility] 300 [place] [address] Surgeon Neurosurgery 05/02/23 documented as of this encounter
--- OUTSIDE RECORDS SUMMARY | 2024-11-29 13:00 | XMS_ITS | Encounter Summary ---
Author Organization [facility] Address [address] [place] [address] Care Team Providers Care Bleach Analyst Name Role Phone Aston Daniel NP Primary Care Provider Unavail able Riccardo Robledo MD Primary Care Provider Olga Ochoa MD Unavailable Mina Dominguez PA-C Unavailable Addison WinslowC Unavailable June Denton PA-C Unavailable [phone] Nichole Otto MD Unavailable [phone] Encounter Details Date Type Department Care Team Description 06/16/2018 Grader Patrol Report Medical Records [address] [place] [address] Abstract, Provider Social History Tobacco Use Types [...] on filedocumented in this encounter Care Teams Bleach Analyst Relationship Specialty Start Date End Date Aston Daniel NP PCP - General Family Practice 09/26/17 12/27/19 Riccardo Robledo, [address] [place] [address] PCP - General Internal Medicine 12/28/19 Olga Ochoa MD [address] [place] [address] Specialist Lung Cancer Senior Research Associate 03/07/21 Mina Dominguez PA-C 299 [facility] [address] [place] [address] Specialist Thoracic Surgery 04/29/22 Addison Winslow PA-C 175 [facility] [address] [place] [address] Specialist Neurosurgery 05/02/23 June Denton PA-C [address] [address] Specialist Neurosurgery 05/02/23 Nichole Otto MD 175 [facility] [address] [place] [address] Surgeon Neurosurgery 05/02/23 documented as of this encounter
--- OUTSIDE RECORDS SUMMARY | 2024-11-29 13:00 | XMS_ITS | Encounter Summary ---
Author Organization [facility] Address [address] [place] [address] Care Team Providers Care Accounts Adjustable Clerk Name Role Phone Riccardo Robledo MD Primary Care Provider Olga Ochoa MD Unavailable Mina DominguezC Unavailable [phone] Addison WinslowC Unavailable [phone] June Denton PA-C Unavailable [phone] Nichole Otto MD Unavailable [phone] Encounter Details Date Type Department Care Team Description 04/06/2021 Resort Keeper Report Medical Records [address] [place] [address] Johnathan Cerda MD Social History Tobacco Use [...] on filedocumented in this encounter Care Teams Accounts Adjustable Clerk Relationship Specialty Start Date End Date Riccardo Robledo MD [address] [place] [address] PCP - General Internal Medicine 12/28/19 Olga Ochoa MD [address] [place] [address] Specialist Lung Cancer Kick Plate Installer 03/07/21 Mina Dominguez PA-C 299 [facility] [address] [place] [address] Specialist Thoracic Surgery 04/29/22 Addison Winslow PA-C 175 [facility] [address] [place] [address] Specialist Neurosurgery 05/02/23 June Denton PA-C 175 [facility] 300 [place] [address] Specialist Neurosurgery 05/02/23 Nichole Otto MD 175 [facility] [address] [place] [address] Surgeon Neurosurgery 05/02/23 documented as of this encounter
--- OUTSIDE RECORDS SUMMARY | 2024-11-29 13:00 | XMS_ITS | Encounter Summary ---
Author Organization [facility] Address [address] [place] [address] Care Team Providers Care Measurement Psychologist Name Role Phone Riccardo Robledo MD Primary Care Provider Olga Ochoa MD Unavailable Mina DominguezC Unavailable [phone] Addison WinslowC Unavailable June Denton PA-C Unavailable Nichole Otto MD Unavailable [phone] Encounter Details Date Type Department Care Team Description 06/12/2023 Release of Information Medical Records [address] [place] [address] Abstract, Provider Social History Tobacco Use Types [...] on filedocumented in this encounter Care Teams Measurement Psychologist Relationship Specialty Start Date End Date Riccardo Robledo, [address] [place] [address] PCP - General Internal Medicine 12/28/19 Olga Ochoa MD [address] [place] [address] Specialist Lung Cancer Special Needs Caregiver 03/07/21 Mina Dominguez PA-C 299 [facility] [address] [place] [address] Specialist Thoracic Surgery 04/29/22 Addison Winslow PA-C 175 [facility] [address] [place] [address] Specialist Neurosurgery 05/02/23 June Denton PA-C 175 [facility] [address] [place] [address] Specialist Neurosurgery 05/02/23 Nichole Otto MD 175 [facility] [address] [place] [address] Surgeon Neurosurgery 05/02/23 documented as of this encounter
--- OUTSIDE RECORDS SUMMARY | 2024-11-29 13:00 | XMS_ITS | Encounter Summary ---
Author Organization [facility] Address [address] [place] [address] Care Team Providers Care Production Welder Name Role Phone Aston Daniel NP Primary Care Provider Unavail able Riccardo Robledo MD Primary Care Provider Olga Ochoa MD Unavailable Mina Dominguez PA-C Unavailable Addison WinslowC Unavailable June Denton PA-C Unavailable [phone] Nichole Otto MD Unavailable [phone] Encounter Details Date Type Department Care Team Description 03/19/2018 Historiography Teacher Report Medical Records [address] [place] [address] Abstract, Provider Social History Tobacco Use Types [...] on filedocumented in this encounter Care Teams Production Welder Relationship Specialty Start Date End Date Aston Daniel NP PCP - General Family Practice 09/26/17 12/27/19 Riccardo Robledo, [address] [place] [address] PCP - General Internal Medicine 12/28/19 Olga Ochoa MD 230 [place] [address] Specialist Lung Cancer Auricular Detoxification Specialist 03/07/21 Mina Dominguez PA-C [address] [address] Specialist Thoracic Surgery 04/29/22 Addison Winslow PA-C 175 [facility] [address] [place] [address] Specialist Neurosurgery 05/02/23 June Denton PA-C [address] [address] Specialist Neurosurgery 05/02/23 Nichole Otto MD 175 [facility] 300 [place] [address] Surgeon Neurosurgery 05/02/23 documented as of this encounter
--- OUTSIDE RECORDS SUMMARY | 2024-11-29 13:00 | XMS_ITS | Encounter Summary ---
Author Organization [facility] Address [address] [place] [address] Care Team Providers Care Earthmoving Labourer Name Role Phone Riccardo Robledo MD Primary Care Provider Olga Ochoa MD Unavailable Mina Dominguez PA-C Unavailable Addison Winslow PA-C Unavailable June Denton PA-C Unavailable Nichole Otto MD Unavailable [phone] Encounter Details Date Type Department Care Team Description 04/13/2021 Refill Adult Medicine [address] [address] Teresa Hernandez PA-C Social History Tobacco Use Types Packs/Day [...] on filedocumented in this encounter Care Teams Earthmoving Labourer Relationship Specialty Start Date End Date Riccardo Robledo MD 230 [place] [address] PCP - General Internal Medicine 12/28/19 Olga Ochoa MD 230 [place] [address] Specialist Lung Cancer Molder Meat 03/07/21 Mina Dominguez PA-C 299 [facility] 410 [place] [address] Specialist Thoracic Surgery 04/29/22 Addison Winslow PA-C 175 [facility] [address] [place] [address] Specialist Neurosurgery 05/02/23 June Denton PA-C 175 [facility] 300 [place] [address] Specialist Neurosurgery 05/02/23 Nichole Otto MD 175 [facility] 300 [place] [address] Surgeon Neurosurgery 05/02/23 documented as of this encounter
--- OUTSIDE RECORDS SUMMARY | 2024-11-29 13:00 | XMS_ITS | Encounter Summary ---
Author Organization [facility] Address [address] [place] [address] Care Team Providers Care Software Qa System Specialist Name Role Phone Community, Pcp Primary Care Provider UnavailAston Araujo NP Primary Care Provider Unavail able Riccardo Robledo MD Primary Care Provider [phone] Olga Ochoa MD Unavailable Mina Dominguez-C Unavailable Addison Winslow PA-C Unavailable June Denton PA-C Unavailable [phone] Nichole Otto MD Unavailable [phone] Encounter Details Date Type Department Care Team Description 07/04/2017 Release of Information Medical Records [address] [place] [address] Abstract, Provider Social History Tobacco Use Types [...] filedocumented in this encounter Care Teams Software Qa System Specialist Relationship Specialty Start Date End Date Community, Pcp PCP - General 02/20/10 09/25/17 Aston Daniel NP PCP - General Family Practice 09/26/17 12/27/19 Riccardo Robledo, [address] [place] [address] PCP - General Internal Medicine 12/28/19 Olga Ochoa MD 230 [place] [address] Specialist Lung Cancer Gasoline Truck Crane Operator 03/07/21 Mina Dominguez PA-C 299 [facility] 410 [place] [address] Specialist Thoracic Surgery 04/29/22 Addison Winslow PA-C 175 [facility] 300 [place] [address] Specialist Neurosurgery 05/02/23 June Denton PA-C 175 [facility] 300 [place] [address] Specialist Neurosurgery 05/02/23 Nichole Otto MD 175 [facility] 300 [place] [address] Surgeon Neurosurgery 05/02/23 documented as of this encounter
--- OUTSIDE RECORDS SUMMARY | 2024-11-29 13:01 | XMS_ITS | Encounter Summary ---
Author Organization [facility] Address [address] [address] Phone Care Team Providers Care Book Cutter Name Role Phone Alicja Benton MD Primary Care Provider Encounter Details Date Type Department Care Team (Late st Contact Info) Description 03/06/2020 Telemedicine [facility] [address] [place] [address] Chapis Myrick MD [address] [place] [address] [email or web address] Lung nodules (Primary Dx) Social History [...] classified documented in this encounter Care Teams Book Cutter Relationship Specialty Start Date End Date Alicja Benton MD [address] [facility] [place] [address] PCP - General Internal Medicine 12/15/18 documented as of this encounter Additional Source Comments The information contained in this document represents components of the legal health record. It is not the complete legal health record.[facility]
--- OUTSIDE RECORDS SUMMARY | 2024-11-29 13:01 | XMS_ITS | Encounter Summary ---
Author Organization [facility] Address [address] [place] [address] Care Team Providers Care Medical Physics Researcher Name Role Phone Riccardo Robledo MD Primary Care Provider [phone] Olga Ochoa MD Unavailable Mina Dominguez-C Unavailable [phone] Addison Winslow PACecileC Unavailable June Denton PA-C Unavailable [phone] Nichole Otto MD Unavailable [phone] Encounter Details Date Type Department Care Team Description 05/23/2023 SCAN [facility] 175 [facility] 160 [place] [address] Akin Delacruz MD 175 [facility] [address] [place], [place] [id number] Social History Tobacco Use Types Packs/Day Years [...] filedocumented in this encounter Care Teams Medical Physics Researcher Relationship Specialty Start Date End Date Riccardo Robledo MD [address] [place] [address] PCP - General Internal Medicine 12/28/19 Olga Ochoa MD [address] [place] [address] Specialist Lung Cancer Babysitter 03/07/21 Mina Dominguez PA-C 299 [facility] [address] [place] [address] Specialist Thoracic Surgery 04/29/22 Addison Winslow PA-C 175 [facility] [address] [place] [address] Specialist Neurosurgery 05/02/23 June Denton PA-C 175 [facility] 300 [place] [address] Specialist Neurosurgery 05/02/23 Nichole Otto MD 175 [facility] 300 [place] [address] Surgeon Neurosurgery 05/02/23 documented as of this encounter
--- OUTSIDE RECORDS SUMMARY | 2024-11-29 13:01 | XMS_ITS | Encounter Summary ---
Author Organization [facility] Address [address] [place] [address] Care Team Providers Care Traffic Lieutenant Name Role Phone Riccardo Robledo MD Primary Care Provider [phone] Olga Ochoa MD Unavailable Mina Dominguez PA-C Unavailable Addison Winslow PA-C Unavailable June Denton PA-C Unavailable [phone] Nichole Otto MD Unavailable [phone] Encounter Details Date Type Department Care Team Description 03/26/2022 Refill Adult Medicine - [address] [address] Logan Romero PA-C [address] [place] [address] Social History Tobacco Use Types Packs/Day Years [...] on filedocumented in this encounter Care Teams Traffic Lieutenant Relationship Specialty Start Date End Date Riccardo Robledo MD [address] [place] [address] PCP - General Internal Medicine 12/28/19 Olga Ochoa MD [address] [place] [address] Specialist Lung Cancer Construction Operations Manager 03/07/21 Mina Dominguez PA-C 299 [facility] [address] [place] [address] Specialist Thoracic Surgery 04/29/22 Addison Winslow PA-C [address] [address] Specialist Neurosurgery 05/02/23 June Denton PA-C 175 [facility] 300 [place] [address] Specialist Neurosurgery 05/02/23 Nichole Otto MD [address] [address] Surgeon Neurosurgery 05/02/23 documented as of this encounter
--- OUTSIDE RECORDS SUMMARY | 2024-11-29 13:01 | XMS_ITS | Encounter Summary ---
Author Organization [facility] Address [address] [place] [address] Care Team Providers Care Sewer And Drain Technician Name Role Phone Riccardo Robledo MD Primary Care Provider Olga Ochoa MD Unavailable Mina Dominguez PA-C Unavailable [phone] Addison Winslow PA-C Unavailable [phone] June Denton-Will Unavailable [phone] Nichole Otto MD Unavailable [phone] Reason for Visit * Reason Onset Date Comments other 01/02/2021 increase in puls e Encounter Details Date Type Department Care Team Description 01/02/2021 Telephone Adult Medicine - [place] [address] [place], [place] [phone] Riccardo Robledo MD [address] [place], [place] [phone] other (increase in pulse ) Social History Tobacco Use Types Packs/Day [...] Telephone Encounter - Mary Austin L.P.N. - 01/02/2021 3:12 PM EDT Patient states his pulse is low when he wakes up in the morning and he is concerned that is it to low Patient states he feels good Patient offered an appointment states no it is not important his other DrLatisha Told him the same thing-states he was just checking in Patient advised to call with any questions or concerns * Telephone Encounter - Hood Rodas - 01/02/2021 2:03 PM EDT Symptoms patient is presenting: Pt calling pt worried about his pulse in the morning For ALL patients calling to schedule [...] recently to another state outside of [place], [place], [place], [place], [place], [place]? NO o If yes, did you quarantine [...] had these symptoms?: PCP: Mireya Robledo [place] / [place] / Product Type: [place]ICARE [id number] documented in this encounter Plan of Treatment Not on file documented as of this encounter Visit Diagnoses Not on filedocumented in this encounter Care Teams Sewer And Drain Technician Relationship Specialty Start Date End Date Riccardo Robledo MD [address] [place] [address] PCP - General Internal Medicine 12/28/19 Olga Ochoa MD [address] [place] [address] Specialist Lung Cancer Natural Resources Manager 03/07/21 Mina Dominguez PA-C 299 [facility] 410 [place] [address] Specialist Thoracic Surgery 04/29/22 Addison Winslow PA-C 175 [facility] [address] [place] [address] Specialist Neurosurgery 05/02/23 June Denton PA-C 175 [facility] [address] [place] [address] Specialist Neurosurgery 05/02/23 Nichole Otto MD 175 [facility] [address] [place] [address] Surgeon Neurosurgery 05/02/23 documented as of this encounter
--- OUTSIDE RECORDS SUMMARY | 2024-11-29 13:01 | XMS_ITS | Encounter Summary ---
Author Organization [facility] Address [address] [place] [address] Care Team Providers Care Engineering Clerk Name Role Phone Riccardo Robledo MD Primary Care Provider [phone] Olga Ohcoa MD Unavailable Mina Dominguez-C Unavailable Addison Winslow-C Unavailable [phone] June Denton PA-C Unavailable [phone] Nichole Otto MD Unavailable [phone] Reason for Referral * INTERNAL (Routine) - Authorized/Booked Specialty Diagnoses / Procedures Referred By Bill yadav Referred To Contact Neurosurgery Procedures REFERRAL TO NEUROSURGERY Riccardo Robledo, [address] [place] [address] Neurosurg/[place] [phone] [phone] Referral ID Status Reason Start Date Expiration Date V isits Requested Visits Authorized [id number] Authorized/B ooked 04/14/2023 1 1 Reason for Visit * Reason Onset Date Comments Customer Acquisition Manager Feedback 04/14/2023 Referral Encounter Details Date Type Department Care Team Description 04/14/2023 Telephone Adult Medicine - [place] [address] [place] [address] Riccardo Robledo MD [address] [place] Customer Acquisition Manager Feedback (Referral) Social History Tobacco Use Types Packs/Day Years [...] Telephone Encounter - Riccardo Robledo MD - 04/14/2023 11:59 AM EST Order signed * Telephone Encounter - Josie Navarro - 04/14/2023 11:30 AM EST Damion Lennon, Please review this patients new referral request. The referral has been pended. Please complete thefollowing: If approved> sign order If denied>please give instructions and route to your practice nursing pool. Practice nurse should inform referrals and the patient if denied. Thank you, Josie Falk Referral Department documented in this encounter Plan of Treatment Not on file documented as of this encounter Visit Diagnoses Not on filedocumented in this encounter Care Teams Engineering Clerk Relationship Specialty Start Date End Date Riccardo Robledo MD [address] [place], [place] PCP - General Internal Medicine 12/28/19 Olga Ochoa MD [address] [place], [place] Specialist Lung Cancer Head Well Puller 03/07/21 Mina Dominguez PA-C [address] [place] [address] Specialist Thoracic Surgery 04/29/22 Addison Winslow PA-C 175 [facility] [address] [place] [phone] Specialist Neurosurgery 05/02/23 June Denton PA-C [address] [phone] Specialist Neurosurgery 05/02/23 Nichole Otto MD 175 [facility] [address] [place] [address] Surgeon Neurosurgery 05/02/23 documented as of this encounter
--- OUTSIDE RECORDS SUMMARY | 2024-11-29 13:01 | XMS_ITS | Encounter Summary ---
Author Organization [facility] Address [address] [place] [address] Care Team Providers Care Press Machine Feeder Name Role Phone Riccardo Robledo MD Primary Care Provider [phone] Olga Ochoa MD Unavailable Mina Dominguez-C Unavailable Addison Winslow PA-C Unavailable June Denton PA-C Unavailable Nichole Otto MD Unavailable [phone] Encounter Details Date Type Department Care Team Description 04/15/2023 Pt. Non Urgent Medical Question [facility] 175 [facility] [address] [place] [address] Akin Delacruz MD 175 [facility] [address] [place], [place] [phone] Social History Tobacco Use Types Packs/Day Years [...] on filedocumented in this encounter Care Teams Press Machine Feeder Relationship Specialty Start Date End Date Riccardo Robledo MD [address] [place] [address] PCP - General Internal Medicine 12/28/19 Olga Ochoa MD [address] [place] [address] Specialist Lung Cancer Automatic Pinsetter Mechanic 03/07/21 Mina Dominguez PA-C 299 [facility] [address] [place] [address] Specialist Thoracic Surgery 04/29/22 Addison Winslow PA-C 175 [facility] [address] [place] [address] Specialist Neurosurgery 05/02/23 June Denton PA-C 175 [facility] 300 [place] [address] Specialist Neurosurgery 05/02/23 Nichole Otto MD 175 [facility] [address] [place] [address] Surgeon Neurosurgery 05/02/23 documented as of this encounter
--- OUTSIDE RECORDS SUMMARY | 2024-11-29 13:01 | XMS_ITS | Encounter Summary ---
Author Organization [facility] Address [address] [facility] [address] [place] [address] Phone Care Team Providers Care Quill Reamer Name Role Phone Alicja Benton MD Primary Care Provider Encounter Details Date Type Department Care Team (Late st Contact Info) Description 01/14/2019 Documentation [facility] [address] [place] [address] No [email or web address] Social History Tobacco Use Types Packs/Day [...] on filedocumented in this encounter Care Teams Quill Reamer Relationship Specialty Start Date End Date Alicja Benton MD [facility] [place] [address] PCP - General Internal Medicine 12/15/18 documented as of this encounter Additional Source Comments The information contained in this document represents components of the legal health record. It is not the complete legal health record.[facility]
--- OUTSIDE RECORDS SUMMARY | 2024-11-29 13:01 | XMS_ITS | Encounter Summary ---
Author Organization [facility] Address [address] [place] [address] Care Team Providers Care Supervisor Microwave Name Role Phone Riccardo Robledo MD Primary Care Provider Olga Ochoa MD Unavailable Mina Dominguez PA-C Unavailable Addison Winslow PA-C Unavailable June Denton-Will Unavailable [phone] Nichole Otto MD Unavailable [phone] Reason for Visit * Reason Onset Date Comments medication problems 02/10/2023 Tirzepatide 2.5 MG/0.5ML Solution Pen-injector Encounter Details Date Type Department Care Team Description 02/10/2023 Telephone Adult Medicine - [place] [address] [place] [address] Riccardo Robledo MD [address] [place] [address] medication problems (Tirzepatide 2.5 MG/0.5ML Solution Pen-injector) Social History Tobacco Use Types Packs/Day Years [...] Telephone Encounter - Brandy Phillips M.A. - 02/10/2023 3:54 PM EST Will not be approved unless pt has type 2 diabetes Brandy Phillips Prior Auth Dep Ext [id number] * Telephone Encounter - Mireya Figueroa M.A. - 02/10/2023 3:49 PM EST Was there a prior auth for this medication ? Tirzepatide 2.5 MG/0.5ML Solution Pen-injector * Telephone Encounter - Audrey Mcclendon - 02/10/2023 1:31 PM EST Who is calling? The patient Name of the medication Tirzepatide 2.5 MG/0.5ML Solution Pen-injector What is the specific problem or interaction? States this is not being approved by the insurance needs alternative sent If the patient is having a problem with taking the med - how long has the problem been going on? N/A documented in this encounter Plan of Treatment Not on file documented as of this encounter Visit Diagnoses Not on filedocumented in this encounter Care Teams Supervisor Microwave Relationship Specialty Start Date End Date Riccardo Robledo MD [address] [place] [address] PCP - General Internal Medicine 12/28/19 Olga Ochoa MD [address] [place], [place] Specialist Lung Cancer Inside Sales Professional 03/07/21 Mina Dominguez PA-C 299 [facility] [address] [place] [address] Specialist Thoracic Surgery 04/29/22 Addison Winslow PA-C 175 [facility] 300 [place] [address] Specialist Neurosurgery 05/02/23 June Denton PA-C 175 [facility] [address] [place] [address] Specialist Neurosurgery 05/02/23 Nichole Otto MD [address] [phone] Surgeon Neurosurgery 05/02/23 documented as of this encounter
--- OUTSIDE RECORDS SUMMARY | 2024-11-29 13:01 | XMS_ITS | Clinical Summary ---
Author Organization [facility] Address [address] [place] [address] Phone Care Team Providers Care Per Diem Registered Nurse Name Role Phone Alicja Benton MD Primary [...] file Insurance MEDICARE PART A & B [facility] & [place] [facility] [place] [facility] & B [facility] & [facility] A & [place] A & B [facility] Care Teams Per Diem Registered Nurse Relationship Specialty Start Date End Date Alicja Benton MD [address] [place] [address] PCP - General Internal Medicine 12/15/18 Additional Source Comments The information contained in this document represents components of the legal health record. It is not the complete legal health record.[facility]
--- OUTSIDE RECORDS SUMMARY | 2024-11-29 13:01 | XMS_ITS | Encounter Summary ---
Author Organization [facility] Address [address] [place] [address] Care Team Providers Care Mounter Saxophones Name Role Phone Riccardo Robledo MD Primary Care Provider [phone] Olga Ochoa MD Unavailable Mina Dominguez-C Unavailable [phone] Addison Winslow PA-C Unavailable [phone] June Denton-Will Unavailable [phone] Nichole Otto MD Unavailable [phone] Encounter Details Date Type Department Care Team Description 01/29/2023 SCAN [facility] 175 [facility] [address] [place] [address] Akin Delacruz MD 175 [facility] [address] [place], [place] [phone] Social History Tobacco Use Types Packs/Day Years [...] on filedocumented in this encounter Care Teams Mounter Saxophones Relationship Specialty Start Date End Date Riccardo Robledo MD [address] [place] [address] PCP - General Internal Medicine 12/28/19 Olga Ochoa MD [address] [place] [address] Specialist Lung Cancer Director Student Union 03/07/21 Mina Dominguez PA-C 299 [facility] [address] [place] [address] Specialist Thoracic Surgery 04/29/22 Addison Winslow PA-C 175 [facility] [address] [place] [address] Specialist Neurosurgery 05/02/23 June Denton PA-C 175 [facility] [address] [place] [address] Specialist Neurosurgery 05/02/23 Nichole Otto MD 175 [facility] [address] [place] [address] Surgeon Neurosurgery 05/02/23 documented as of this encounter
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
--- OUTSIDE RECORDS SUMMARY | 2024-11-29 13:01 | XMS_ITS | Encounter Summary ---
Author Organization [facility] Address [address] [place] [address] Care Team Providers Care Trestle Mechanic Name Role Phone Riccardo Rboledo MD Primary Care Provider [phone] Olga Ochoa MD Unavailable Mina Dominguez-C Unavailable [phone] Addison Winslow-C Unavailable [phone] June Denton-Will Unavailable [phone] Nichole Otto MD Unavailable [phone] Encounter Details Date Type Department Care Team Description 02/19/2023 Pt. Non Urgent Medic al Question Adult Medicine - [place] [address] [place] [address] Riccardo Robledo MD [address] [place] [address] Social History Tobacco Use Types Packs/Day Years [...] on filedocumented in this encounter Care Teams Trestle Mechanic Relationship Specialty Start Date End Date Riccardo Robledo MD [address] [place] [address] PCP - General Internal Medicine 12/28/19 Olga Ochoa MD [address] [place] [address] Specialist Lung Cancer Independent Crop Consultant 03/07/21 Mina Dominguez PA-C [address] [phone] Specialist Thoracic Surgery 04/29/22 Addison Winslow PA-C 175 [facility] [address] [place] [address] Specialist Neurosurgery 05/02/23 June Denton PA-C 175 [facility] [address] [place] [address] Specialist Neurosurgery 05/02/23 Nichole Otto MD [address] [address] Surgeon Neurosurgery 05/02/23 documented as of this encounter
--- OUTSIDE RECORDS SUMMARY | 2024-11-29 13:01 | XMS_ITS | Encounter Summary ---
Author Organization [facility] Address [address] [place] [address] Care Team Providers Care Building Maintenance Custodian Name Role Phone Riccardo Robledo MD Primary Care Provider Olga Ochoa MD Unavailable Mina Dominguez PA-C Unavailable Addison Winslow PA-C Unavailable [phone] June Denton-C Unavailable Nichole Otto MD Unavailable [phone] Reason for Visit * Reason Onset Date Comments Provider Call Back 02/18/2023 Encounter Details Date Type Department Care Team Description 02/18/2023 Telephone Adult Medicine - [place] [address] [place], [place] [phone] Riccardo Robledo MD [address] [place] [address] Provider Call Back Social History Tobacco Use [...] Telephone Encounter - Riccardo Robledo MD - 02/18/2023 4:51 PM EST Spoke to patient he is concerned about his mom being in a lot of pain and was wondering he is also having problems with swallowing pulmonary and renal he feels he is unable to do much because of all his issues. Will follow closely * Telephone Encounter - Melanie Lynn - 02/18/2023 12:48 PM EST Pt requesting a call back from Dr. Swanson. He said it was about health issues. documented in this encounter Plan of Treatment Not on file documented as of this encounter Visit Diagnoses Not on filedocumented in this encounter Care Teams Building Maintenance Custodian Relationship Specialty Start Date End Date Riccardo Robledo MD [address] [place] [address] PCP - General Internal Medicine 12/28/19 Olga Ochoa MD [address] [place] [address] Specialist Lung Cancer Ink Jet Operator 03/07/21 Mina Dominguez PA-C 299 [facility] [address] [place] [address] Specialist Thoracic Surgery 04/29/22 Addison Winslow PA-C 175 [facility] [address] [place] [address] Specialist Neurosurgery 05/02/23 June Denton PA-C 175 [facility] [address] [place] [address] Specialist Neurosurgery 05/02/23 Nichole Otto MD [address] [place] [address] Surgeon Neurosurgery 05/02/23 documented as of this encounter
--- OUTSIDE RECORDS SUMMARY | 2024-11-29 13:01 | XMS_ITS | Encounter Summary ---
Author Organization [facility] Address [address] [place] [address] Care Team Providers Care Milk House Worker Name Role Phone Riccardo Robledo MD Primary Care Provider Olga Ochoa MD Unavailable Mina Dominguez-C Unavailable [phone] Addison WinslowC Unavailable [phone] June Denton PA-C Unavailable [phone] Nichole Otto MD Unavailable [phone] Encounter Details Date Type Department Care Team Description 01/23/2023 Grinder Set Up Operator Centerless Report Medical Records [address] [place] [address] Liborio Nguyễn MD Social History Tobacco Use [...] on filedocumented in this encounter Care Teams Milk House Worker Relationship Specialty Start Date End Date Riccardo Robledo MD [address] [place] [address] PCP - General Internal Medicine 12/28/19 Olga Ochoa MD [address] [place] [address] Specialist Lung Cancer Corporate Operations Compliance Manager 03/07/21 Mina Dominguez PA-C 299 [facility] [address] [place] [phone] Specialist Thoracic Surgery 04/29/22 Addison Winslow PA-C 175 [facility] [address] [place] [address] Specialist Neurosurgery 05/02/23 June Denton PA-C 175 [facility] [address] [place] [address] Specialist Neurosurgery 05/02/23 Nichole Otto MD 175 [facility] [address] [place] [address] Surgeon Neurosurgery 05/02/23 documented as of this encounter
--- OUTSIDE RECORDS SUMMARY | 2024-11-29 13:01 | XMS_ITS | Encounter Summary ---
Author Organization [facility] Address [address] [place] [address] Care Team Providers Care Executive Meeting Manager Name Role Phone Riccardo Robledo MD Primary Care Provider [phone] Olga Ochoa MD Unavailable Mina Dominguez PA-C Unavailable [phone] Addison Winslow PA-C Unavailable [phone] June Denton-C Unavailable Nichole Otto MD Unavailable [phone] Encounter Details Date Type Department Care Team Description 01/16/2024 Telephone Adult Medicine - [address] [address] Riccardo Robledo MD [address] [place] [address] Social History Tobacco Use Types Packs/Day Years [...] on filedocumented in this encounter Care Teams Executive Meeting Manager Relationship Specialty Start Date End Date Riccardo Robledo MD [address] [place] [address] PCP - General Internal Medicine 12/28/19 Olga Ochoa MD [address] [place] [address] Specialist Lung Cancer Nuclear Reactor Engineer 03/07/21 Mina Dominguez PA-C 299 [facility] [address] [place] [phone] Specialist Thoracic Surgery 04/29/22 Addison Winslow PA-C 175 [facility] [address] [place] [address] Specialist Neurosurgery 05/02/23 June Denton PA-C 175 [facility] [address] [place] [address] Specialist Neurosurgery 05/02/23 Nichole Otto MD 175 [facility] [address] [place] [address] Surgeon Neurosurgery 05/02/23 documented as of this encounter
--- OUTSIDE RECORDS SUMMARY | 2024-11-29 13:01 | XMS_ITS | Encounter Summary ---
Author Organization [facility] Address [address] [place] [address] Care Team Providers Care Ms Sql Developer Name Role Phone Riccardo Robledo MD Primary Care Provider Olga Ochoa MD Unavailable Mina Dominguez PA-C Unavailable [phone] Addison Winslow PA-C Unavailable [phone] June Denton-C Unavailable [phone] Nichole Otto MD Unavailable [phone] Reason for Visit * Reason Onset Date Comments Blood Pressure Elevated 01/23/2022 Encounter Details Date Type Department Care Team Description 01/23/2022 Telephone Adult Medicine - [place] [address] [place], [place] [phone] Riccardo Robledo MD [address] [place] [address] Blood Pressure Elevated Social History Tobacco Use [...] encounter Miscellaneous Notes * Telephone Encounter - Mitchell Hurley - 01/23/2022 12:16 PM EDT Spoke with pt he is aware of his rx sent to the pharmacy * Telephone Encounter - Riccardo Robledo MD - 01/23/2022 10:33 AM EDT Reordered his prescription he should make a follow-up appointment * Telephone Encounter - Mireya Figueroa M.A. - 01/23/2022 9:13 AM EDT Appt ? * Telephone Encounter - Carole Maria - 01/23/2022 8:55 AM EDT Pts bp was elevated 170/82 last nite and pt would like to go back on bp meds - pt would like the lowest dose 2.5 lisonopril- documented in this encounter Plan of Treatment Not on file documented as of this encounter Visit Diagnoses Not on filedocumented in this encounter Care Teams Ms Sql Developer Relationship Specialty Start Date End Date Riccardo Robledo MD [address] [place] [address] PCP - General Internal Medicine 12/28/19 Olga Ochoa MD [address] [place], [place] Specialist Lung Cancer Acquisitions Librarian 03/07/21 Mina Dominguez PA-C [address] [place] [phone] Specialist Thoracic Surgery 04/29/22 Addison Winslow PA-C 175 [facility] [address] [place] [phone] Specialist Neurosurgery 05/02/23 June Denton PA-C [address] [phone] Specialist Neurosurgery 05/02/23 Nichole Otto MD [address] [address] Surgeon Neurosurgery 05/02/23 documented as of this encounter
--- OUTSIDE RECORDS SUMMARY | 2024-11-29 13:01 | XMS_ITS | Encounter Summary ---
Author Organization [facility] Address [address] [place] [address] Care Team Providers Care Optician Apprentice Name Role Phone Riccardo Robledo MD Primary Care Provider [phone] Olga Ochoa MD Unavailable Mina Dominguez PA-C Unavailable [phone] Addison Winslow PA-C Unavailable June Denton PA-C Unavailable [phone] Nichole Otto MD Unavailable [phone] Encounter Details Date Type Department Care Team Description 05/08/2023 [facility] Medical Records [address] [place] [address] Wilmar Beal MD Social History Tobacco Use [...] on filedocumented in this encounter Care Teams Optician Apprentice Relationship Specialty Start Date End Date Riccardo Robledo MD [address] [place] [address] PCP - General Internal Medicine 12/28/19 Olga Ochoa MD [address] [place] [address] Specialist Lung Cancer Secondary History Teacher 03/07/21 Mina Dominguez PA-C 299 [facility] [address] [place] [address] Specialist Thoracic Surgery 04/29/22 Addison Winslow PA-C 175 [facility] [address] [place] [address] Specialist Neurosurgery 05/02/23 June Denton PA-C 175 [facility] [address] [place] [address] Specialist Neurosurgery 05/02/23 Nichole Otto MD 175 [facility] [address] [place] [address] Surgeon Neurosurgery 05/02/23 documented as of this encounter
--- OUTSIDE RECORDS SUMMARY | 2024-11-29 13:01 | XMS_ITS | Encounter Summary ---
Author Organization [facility] Address [address] [place] [address] Care Team Providers Care Run Boat Operator Name Role Phone Riccardo Robledo MD Primary Care Provider [phone] Olga Ochoa MD Unavailable Mina Dominguez PA-C Unavailable [phone] Addison Winslow PA-C Unavailable June Denton PA-C Unavailable Nichole Otto MD Unavailable [phone] Encounter Details Date Type Department Care Team Description 04/11/2023 Pt. Non Urgent Medic al Question Adult Medicine - [address] [address] Salina Salas PA-C [address] [place] [address] Social History Tobacco Use Types Packs/Day Years [...] on filedocumented in this encounter Care Teams Run Boat Operator Relationship Specialty Start Date End Date Riccardo Robledo MD [address] [place] [address] PCP - General Internal Medicine 12/28/19 Olga Ochoa MD [address] [place] [address] Specialist Lung Cancer Entry Level Accountant 03/07/21 Mina Dominguez PA-C 299 [facility] [address] [place] [phone] Specialist Thoracic Surgery 04/29/22 Addison Winslow PA-C 175 [facility] [address] [place] [address] Specialist Neurosurgery 05/02/23 June Denton PA-C 175 [facility] [address] [place] [address] Specialist Neurosurgery 05/02/23 Nichole Otto MD 175 [facility] [address] [place] [address] Surgeon Neurosurgery 05/02/23 documented as of this encounter
--- OUTSIDE RECORDS SUMMARY | 2024-11-29 13:01 | XMS_ITS | Encounter Summary ---
Author Organization [facility] Address [address] [place] [address] Care Team Providers Care Electronic Page Makeup System Operator Name Role Phone Riccardo Robledo MD Primary Care Provider Olga Ochoa MD Unavailable Mina Dominguez PA-C Unavailable [phone] Addison Winslow PA-C Unavailable [phone] June Denton PA-C Unavailable Nichole Otto MD Unavailable [phone] Encounter Details Date Type Department Care Team Description 03/01/2022 Refill Adult Medicine [address] [address] Anastasiya Gary PA-C Social History Tobacco Use [...] on filedocumented in this encounter Care Teams Electronic Page Makeup System Operator Relationship Specialty Start Date End Date Riccardo Robledo MD [address] [place] [address] PCP - General Internal Medicine 12/28/19 Olga Ochoa MD [address] [place] [address] Specialist Lung Cancer It Architecture Analyst 03/07/21 Mina Dominguez PA-C 299 [facility] [address] [place] [phone] Specialist Thoracic Surgery 04/29/22 Addison Winslow PA-C 175 [facility] [address] [place] [address] Specialist Neurosurgery 05/02/23 June Denton PA-C 175 [facility] [address] [place] [address] Specialist Neurosurgery 05/02/23 Nichole Otto MD 175 [facility] [address] [place] [address] Surgeon Neurosurgery 05/02/23 documented as of this encounter
--- OUTSIDE RECORDS SUMMARY | 2024-11-29 13:01 | XMS_ITS | Encounter Summary ---
Author Organization [facility] Address [address] [place] [address] Care Team Providers Care Construction Job Cost Estimator Name Role Phone Riccardo Robledo MD Primary Care Provider [phone] Olga Ochoa MD Unavailable Mina Dominguez PA-C Unavailable Addison Winslow PA-C Unavailable June Denton PA-C Unavailable Nichole Otto MD Unavailable [phone] Encounter Details Date Type Department Care Team Description 02/07/2023 Refill Adult Medicine - [address] [address] Logan Romero PA-C [address] [place] [address] Social History Tobacco Use Types Packs/Day Years [...] on filedocumented in this encounter Care Teams Construction Job Cost Estimator Relationship Specialty Start Date End Date Riccardo Robledo MD [address] [place] [address] PCP - General Internal Medicine 12/28/19 Olga Ochoa MD [address] [place] [address] Specialist Lung Cancer Slurry Mixer 03/07/21 Mina Dominguez PA-C 299 [facility] [address] [place] [address] Specialist Thoracic Surgery 04/29/22 Addison Winslow PA-C 175 [facility] [address] [place] [address] Specialist Neurosurgery 05/02/23 June Denton PA-C 175 [facility] [address] [place] [address] Specialist Neurosurgery 05/02/23 Nichole Otto MD 175 [facility] [address] [place] [address] Surgeon Neurosurgery 05/02/23 documented as of this encounter
--- OUTSIDE RECORDS SUMMARY | 2024-11-29 13:01 | XMS_ITS | Encounter Summary ---
Author Organization [facility] Address [address] [place] [address] Care Team Providers Care Turntable Engineer Name Role Phone Riccardo Robledo MD Primary Care Provider [phone] Olga Ochoa MD Unavailable Mina Dominguez-C Unavailable Addison Winslow-C Unavailable [phone] June Denton-Will Unavailable Nichole Otto MD Unavailable [phone] Encounter Details Date Type Department Care Team Description 01/30/2023 Pt. Non Urgent Medic al Question Adult Medicine - [place] [address] [place] [address] Riccardo Robledo MD 230 [place] [address] Social History Tobacco Use Types Packs/Day Years [...] on filedocumented in this encounter Care Teams Turntable Engineer Relationship Specialty Start Date End Date Riccardo Robledo MD [address] [place] [address] PCP - General Internal Medicine 12/28/19 Olga Ochoa MD 230 [place] [address] Specialist Lung Cancer Forest Economist 03/07/21 Mina Dominguez PA-C [address] [phone] Specialist Thoracic Surgery 04/29/22 Addison Winslow PA-C 175 [facility] [address] [place] [address] Specialist Neurosurgery 05/02/23 June Denton PA-C 175 [facility] [address] [place] [address] Specialist Neurosurgery 05/02/23 Nichole Otto MD 175 [facility] [address] [place] [address] Surgeon Neurosurgery 05/02/23 documented as of this encounter
--- OUTSIDE RECORDS SUMMARY | 2024-11-29 13:01 | XMS_ITS | Encounter Summary ---
Author Organization Formerly [facility] Address [address] [place] [address] Care Team Providers Care Account Planner Name Role Phone Riccardo Robledo MD Primary Care Provider [phone] Olga Ochoa MD Unavailable Mina Dominguez-C Unavailable Addison Winslow-C Unavailable June Denton PA-C Unavailable Nichole Otto MD Unavailable [phone] Encounter Details Date Type Department Care Team Description 04/14/2023 SCAN [facility] Medical [facility] 175 [facility] [address] [place] [address] Sharmila Martinez APRN Social History [...] on filedocumented in this encounter Care Teams Account Planner Relationship Specialty Start Date End Date Riccardo Robledo MD [address] [place], [place] [phone] PCP - General Internal Medicine 12/28/19 Olga Ochoa MD 230 [place] [address] Specialist Lung Cancer Judicial Clerk 03/07/21 Mina Dominguez PA-C 299 [facility] 410 [place] [address] Specialist Thoracic Surgery 04/29/22 Addison Winslow PA-C 175 [facility] 300 [place] [address] Specialist Neurosurgery 05/02/23 June Denton PA-C [address] [address] Specialist Neurosurgery 05/02/23 Nichole Otto MD [address] [address] Surgeon Neurosurgery 05/02/23 documented as of this encounter
--- OUTSIDE RECORDS SUMMARY | 2024-11-29 13:01 | XMS_ITS | Encounter Summary ---
Author Organization [facility] Address [address] [place] [address] Care Team Providers Care Wastewater Treatment Engineer Name Role Phone Riccardo Robledo MD Primary Care Provider [phone] Olga Ochoa MD Unavailable Mina Dominguez PA-C Unavailable Addison Winslow PA-C Unavailable [phone] June Denton PA-C Unavailable [phone] Nichole Otto MD Unavailable [phone] Encounter Details Date Type Department Care Team Description 05/08/2023 Refill Adult Medicine - [address] [address] Salina Salas PA-C [address] [place] [id number] Social History Tobacco Use Types Packs/Day Years [...] on filedocumented in this encounter Care Teams Wastewater Treatment Engineer Relationship Specialty Start Date End Date Riccardo Robledo MD 230 [place] [address] PCP - General Internal Medicine 12/28/19 Olga Ochoa MD 230 [place] [address] Specialist Lung Cancer Presser Hand 03/07/21 Mina Dominguez PA-C 299 [facility] 410 [place] [address] Specialist Thoracic Surgery 04/29/22 Addison Winslow PA-C 175 [facility] [address] [place] [address] Specialist Neurosurgery 05/02/23 June Denton PA-C 175 [facility] 300 [place] [address] Specialist Neurosurgery 05/02/23 Nichole Otto MD 175 [facility] 300 [place] [address] Surgeon Neurosurgery 05/02/23 documented as of this encounter
--- OUTSIDE RECORDS SUMMARY | 2024-11-29 13:01 | XMS_ITS | Encounter Summary ---
Author Organization [facility] Address [address] [place] [address] Care Team Providers Care Photograph Inspector Name Role Phone Riccardo Robledo MD Primary Care Provider [phone] Olga Ochoa MD Unavailable Mina Dominguez PA-C Unavailable Addison Winslow PA-C Unavailable June Denton PA-C Unavailable Nichole Otto MD Unavailable [phone] Encounter Details Date Type Department Care Team Description 02/06/2023 Pt. Non Urgent Medic al Question Adult Medicine - [address] [address] Logan Romero PA-C [address] [place] [address] Social History Tobacco Use Types Packs/Day Years [...] the medication that was sent to the [facility] pharmacy yesterday by Byron Romero the pharmacy sent you a message how to do it and list of medications same as the medication Byron hernandez to get approve please let me know documented in this encounter Plan of Treatment Not on file documented as of this encounter Visit Diagnoses Not on filedocumented in this encounter Care Teams Photograph Inspector Relationship Specialty Start Date End Date Riccardo Robledo MD [address] [place] [address] PCP - General Internal Medicine 12/28/19 Olga Ochoa MD [address] [place] [address] Specialist Lung Cancer Loom Tuner 03/07/21 Mina Dominguez PA-C [address] [address] Specialist Thoracic Surgery 04/29/22 Addison Winslow PA-C [address] [address] Specialist Neurosurgery 05/02/23 June Denton PA-C 175 [facility] 300 [place] [address] Specialist Neurosurgery 05/02/23 Nichole Otto MD [address] [address] Surgeon Neurosurgery 05/02/23 documented as of this encounter
--- OUTSIDE RECORDS SUMMARY | 2024-11-29 13:01 | XMS_ITS | Encounter Summary ---
Author Organization [facility] Address [address] [place] [address] Care Team Providers Care Banquet Lead Name Role Phone Riccardo Robledo MD Primary Care Provider [phone] Olga Ochoa MD Unavailable Mina Dominguez-C Unavailable [phone] dAdison Winslow PA-C Unavailable June Denton PA-C Unavailable [phone] Nichole Otto MD Unavailable [phone] Encounter Details Date Type Department Care Team Description 04/16/2023 Pt. Non Urgent Medical Question [facility] 175 [facility] [address] [place] [address] Akin Delacruz MD 175 [facility] [address] [place], [place] [phone] Social History Tobacco Use Types Packs/Day Years [...] on filedocumented in this encounter Care Teams Banquet Lead Relationship Specialty Start Date End Date Riccardo Robledo MD 230 [place] [address] PCP - General Internal Medicine 12/28/19 Olga Ochoa MD 230 [place] [address] Specialist Lung Cancer Building Services Coordinator 03/07/21 Mina Dominguez PA-C 299 [facility] 410 [place] [address] Specialist Thoracic Surgery 04/29/22 Addison Winslow PA-C 175 [facility] [address] [place] [address] Specialist Neurosurgery 05/02/23 Juen Denton PA-C 175 [facility] 300 [place] [address] Specialist Neurosurgery 05/02/23 Nichole Otto MD 175 [facility] 300 [place] [address] Surgeon Neurosurgery 05/02/23 documented as of this encounter
--- OUTSIDE RECORDS SUMMARY | 2024-11-29 13:01 | XMS_ITS | Encounter Summary ---
Author Organization [facility] Address [address] [place] [address] Care Team Providers Care Guest Services Assistant Name Role Phone Riccardo Robledo MD Primary Care Provider [phone] Olga Ochoa MD Unavailable Mina Dominguez PA-C Unavailable Addison Winslow PA-C Unavailable June Denton PA-C Unavailable Nichole Otto MD Unavailable [phone] Encounter Details Date Type Department Care Team Description 04/18/2023 Incoming Correspondence [facility] Medical [facility] Neurosurgery [place] [address] [address] Nichole Otto MD [address] [address] Social History Tobacco Use Types Packs/Day Years [...] on filedocumented in this encounter Care Teams Guest Services Assistant Relationship Specialty Start Date End Date Riccardo Robledo MD 230 [place] [address] PCP - General Internal Medicine 12/28/19 Olga Ochoa MD 230 [place] [address] Specialist Lung Cancer Certified Medical Asst 03/07/21 Mina Dominguez PA-C 299 [facility] 410 [place] [address] Specialist Thoracic Surgery 04/29/22 Addison Winslow PA-C 175 [facility] [address] [place] [address] Specialist Neurosurgery 05/02/23 June Denton PA-C 175 [facility] 300 [place] [address] Specialist Neurosurgery 05/02/23 Nichole Otto MD 175 [facility] 300 [place] [address] Surgeon Neurosurgery 05/02/23 documented as of this encounter
--- OUTSIDE RECORDS SUMMARY | 2024-11-29 13:01 | XMS_ITS | Encounter Summary ---
Author Organization [facility] Address [address] [place] [address] Care Team Providers Care Inspectors And Regulatory Officers Name Role Phone Riccardo Robledo MD Primary Care Provider [phone] Olga Ochoa MD Unavailable Mina Dominguez PA-C Unavailable Addison Winslow PA-C Unavailable June Denton PA-C Unavailable Nichole Otto MD Unavailable [phone] Encounter Details Date Type Department Care Team Description 05/02/2023 SCAN [facility] Neurosurgery [place] [address] [address] Addison Winslow PA-C [address] [id number] Social History Tobacco Use Types Packs/Day Years [...] on filedocumented in this encounter Care Teams Inspectors And Regulatory Officers Relationship Specialty Start Date End Date Riccardo Robledo MD 230 [place] [address] PCP - General Internal Medicine 12/28/19 Olga Ochoa MD 230 [place] [address] Specialist Lung Cancer Concentrator Operator 03/07/21 Mina Dominguez PA-C 299 [facility] 410 [place] [address] Specialist Thoracic Surgery 04/29/22 Addison Winslow PA-C 175 [facility] [address] [place] [address] Specialist Neurosurgery 05/02/23 June Denton PA-C 175 [facility] 300 [place] [address] Specialist Neurosurgery 05/02/23 Nichole Otto MD 175 [facility] 300 [place] [address] Surgeon Neurosurgery 05/02/23 documented as of this encounter
--- OUTSIDE RECORDS SUMMARY | 2024-11-29 13:01 | XMS_ITS | Encounter Summary ---
Author Organization [facility] Address [address] [place] [address] Care Team Providers Care Medical Records Coder Name Role Phone Riccardo Robledo MD Primary Care Provider [phone] Olga Ochoa MD Unavailable Mina Dominguez PA-C Unavailable [phone] Addison Winslow PA-C Unavailable June Denton-Will Unavailable Nichole Otto MD Unavailable [phone] Encounter Details Date Type Department Care Team Description 01/29/2023 Telephone [facility] Medical [facility] [address] [address] Akin Delacruz MD [address] [phone] Social History Tobacco Use Types Packs/Day Years [...] Miscellaneous Notes * Telephone Encounter - Pallavi Raman Kvng - 01/29/2023 1:07 PM EST Jen, [employer], called regarding status of check she sent (mailed 12/24)for Medical Records She spoke with Maren Batista who has no record of check [phone] documented in this encounter Plan of Treatment Not on file documented as of this encounter Visit Diagnoses Not on filedocumented in this encounter Care Teams Medical Records Coder Relationship Specialty Start Date End Date Riccardo Robledo MD 230 [place] [address] PCP - General Internal Medicine 12/28/19 Olga Ochoa MD 230 [place] [address] Specialist Lung Cancer Director Content Marketing 03/07/21 Mina Dominguez PA-C 299 [facility] 410 [place] [address] Specialist Thoracic Surgery 04/29/22 Addison Winslow PA-C 175 [facility] 300 [place] [address] Specialist Neurosurgery 05/02/23 June Denton PA-C 175 [facility] 300 [place] [address] Specialist Neurosurgery 05/02/23 Nichole Otto MD [address] [address] Surgeon Neurosurgery 05/02/23 documented as of this encounter
--- OUTSIDE RECORDS SUMMARY | 2024-11-29 13:01 | XMS_ITS | Encounter Summary ---
Author Organization [facility] Address [address] [place] [address] Phone Care Team Providers Care Business Solutions Consultant Name Role Phone Alicja Benton MD Primary Care Provider Reason for Referral * MRI/CAT Scan - Closed Specialty Diagnoses / Procedures Referred By Contac t Referred To Contact Procedures CT Chest Outside (No Interpretation) Chapis Myrick MD Phone: tel: fax: mailto:[email or web address] Referral ID Status Reason Start Date Expiration Date Visits Re quested Visits Authorized [id number] Closed 01/15/2019 01/15/2020 1 1 * MRI/CAT Scan - Closed Specialty Diagnoses / Procedures Referred By Contac t Referred To Contact Procedures CT Chest Outside (No Interpretation) Chapis Myrick MD Phone: tel: fax: mailto:[email or web address] Referral ID Status Reason Start Date Expiration Date Visits Re quested Visits Authorized [id number] Closed 01/15/2019 01/15/2020 1 1 * MRI/CAT Scan - Closed Specialty Diagnoses / Procedures Referred By Contac t Referred To Contact Procedures CT Vascular Outside (No Interpretation) Chapis Myrick MD Phone: tel: fax: mailto:[email or web address] Referral ID Status Reason Start Date Expiration Date Visits Re quested Visits Authorized [id number] Closed 01/15/2019 01/15/2020 1 1 Encounter Details Date Type Department Care Team (Late st Contact Info) Description 01/15/2019 Transcribe Orders [facility] [address] [address] Osiel Rose [address] [place] [address] [email or web address] Social History Tobacco Use Types [...] (No Interpretation) (01/15/2019 8:05 AM EDT) Narrative [facility] - 01/15/2019 8:05 AM EDT This study is for PACS storage only and not for interpretation. us Chapis Myrick MD IMG OUTSIDE IMAGING W/OUT IN TERPRETATION Final Result Performing Organization Address [facility] de Phone Number [email or web address] * CT Chest Outside (No Interpretation) (01/15/2019 8:04 AM EDT) Narrative [facility] - 01/15/2019 8:04 AM EDT This study is for PACS storage only and not for interpretation. us Chapis Myrick MD IMG OUTSIDE IMAGING W/OUT IN TERPRETATION Final Result Performing Organization Address [facility] Co de Phone Number [email or web address] * CT Vascular Outside (No Interpretation) (01/15/2019 8:04 AM EDT) Narrative [facility] - 01/15/2019 8:04 AM EDT This study is for PACS storage only and not for interpretation. us Chapis Myrick MD IMG OUTSIDE IMAGING W/OUT IN TERPRETATION Final Result [facility] documented in this encounter Visit Diagnoses Not on filedocumented in this encounter Care Teams Business Solutions Consultant Relationship Specialty Start Date End Date Alicja Benton MD [facility] [address] PCP - General Internal Medicine 12/15/18 documented as of this encounter Additional Source Comments The information contained in this document represents components of the legal health record. It is not the complete legal health record.[facility]
--- OUTSIDE RECORDS SUMMARY | 2024-11-29 13:01 | XMS_ITS | Encounter Summary ---
Author Organization [facility] Address [address] [place] [address] Care Team Providers Care Fruit Rancher Name Role Phone Riccardo Robledo MD Primary Care Provider Olga Ochoa MD Unavailable Mina Dominguez PA-C Unavailable [phone] Addison Winslow PA-C Unavailable June Denton PA-C Unavailable [phone] Nichole Otto MD Unavailable [phone] Encounter Details Date Type Department Care Team Description 03/10/2023 Orders Only Medical Records [address] [place] [address] Logan Johnson PA-C Social History Tobacco Use [...] on filedocumented in this encounter Care Teams Fruit Rancher Relationship Specialty Start Date End Date Riccardo Robledo MD 230 [place] [address] PCP - General Internal Medicine 12/28/19 Olga Ochoa MD 230 [place] [address] Specialist Lung Cancer Hospital Technician 03/07/21 Mina Dominguez PA-C [address] [phone] Specialist Thoracic Surgery 04/29/22 Addison Winslow PA-C 175 [facility] 300 [place] [address] Specialist Neurosurgery 05/02/23 June Denton PA-C 175 [facility] 300 [place] [address] Specialist Neurosurgery 05/02/23 Nichole Otto MD [address] [address] Surgeon Neurosurgery 05/02/23 documented as of this encounter
--- OUTSIDE RECORDS SUMMARY | 2024-11-29 13:01 | XMS_ITS | Encounter Summary ---
Author Organization [facility] Address [address] [place] [address] Care Team Providers Care Infection Prevention Specialist Name Role Phone Riccardo Robledo MD Primary Care Provider [phone] Olga Ochoa MD Unavailable Mina Dominguez PA-C Unavailable Addison Winslow-C Unavailable [phone] June Denton-Will Unavailable Nichole Otto MD Unavailable [phone] Encounter Details Date Type Department Care Team Description 03/01/2022 Refill Adult Medicine [address] [address] Riccardo Robledo, [address] [place] [address] Social History Tobacco Use Types Packs/Day Years [...] on filedocumented in this encounter Care Teams Infection Prevention Specialist Relationship Specialty Start Date End Date Riccardo Robledo MD 230 [place] [address] PCP - General Internal Medicine 12/28/19 Olga Ochoa MD 230 [place] [address] Specialist Lung Cancer Service Director 03/07/21 Mina Dominguez PA-C [address] [phone] Specialist Thoracic Surgery 04/29/22 Addison Winslow PA-C 175 [facility] [address] [place] [address] Specialist Neurosurgery 05/02/23 June Denton PA-C 175 [facility] 300 [place] [address] Specialist Neurosurgery 05/02/23 Nichole Otto MD 175 [facility] 300 [place] [address] Surgeon Neurosurgery 05/02/23 documented as of this encounter
--- OUTSIDE RECORDS SUMMARY | 2024-11-29 13:01 | XMS_ITS | Encounter Summary ---
Author Organization [facility] Address [address] [place] [address] Care Team Providers Care Sandblaster Glass Name Role Phone Riccardo Robledo MD Primary Care Provider [phone] Olga Ochoa MD Unavailable Mina Dominguez PA-C Unavailable [phone] Addison Winslow PA-C Unavailable [phone] June Denton PA-C Unavailable Nichole Otto MD Unavailable [phone] Encounter Details Date Type Department Care Team Description 05/02/2023 SCAN [facility] Medical [facility] Neurosurgery [place] [address] [address] Nichole Otto MD [address] [phone] Social History Tobacco Use Types Packs/Day Years [...] filedocumented in this encounter Care Teams Sandblaster Glass Relationship Specialty Start Date End Date Riccardo Robledo MD 230 [place] [address] PCP - General Internal Medicine 12/28/19 Olga Ochoa MD 230 [place] [address] Specialist Lung Cancer Incident Response Specialist 03/07/21 Mina Dominguez PA-C 299 [facility] [address] [place] [address] Specialist Thoracic Surgery 04/29/22 Addison Winslow PA-C 175 [facility] [address] [place] [address] Specialist Neurosurgery 05/02/23 June Denton PA-C 175 [facility] 300 [place] [address] Specialist Neurosurgery 05/02/23 Nichole Otto MD 175 [facility] 300 [place] [address] Surgeon Neurosurgery 05/02/23 documented as of this encounter
--- OUTSIDE RECORDS SUMMARY | 2024-11-29 13:01 | XMS_ITS | Encounter Summary ---
Author Organization [facility] Address [address] [place] [address] Care Team Providers Care District Traffic Chief Name Role Phone Riccardo Robledo MD Primary Care Provider Olga Ochoa MD Unavailable Mina Dominguez PA-C Unavailable [phone] Addison Winslow PA-C Unavailable [phone] June Denton-Will Unavailable Nichole Otto MD Unavailable [phone] Reason for Visit * Reason Onset Date Comments Prior Authorization 01/30/2023 Medication 01/30/2023 Encounter Details Date Type Department Care Team Description 01/30/2023 Telephone Adult Medicine - [place] [address] [place], [place] [phone] Riccardo Robledo MD [address] [place] [address] Prior Authorization; Medication Social History Tobacco Use Types Packs/Day [...] encounter Miscellaneous Notes * Telephone Encounter - Melanie Lynn - 02/04/2023 8:52 AM EST Jv called, explained below info. He was hoping to get approval for another medicine to lose weight. He is interested in Zepbound if possible. I told him to contact his insurance to see if it wouldbe covered. * Telephone Encounter - Brandy Phillips M.A. - 01/30/2023 10:56 AM EST Will not be approved unless pt has type 2 diabetes Brandy Phillips Prior Auth Dep Ext [id number] * Telephone Encounter - Carole Maria - 01/30/2023 8:46 AM EST Prior Authorization for Medication-do not complete and send this encounter unless you have the fax from the pharmacy. Is this a Cover My Meds request: [place] of Medication Semaglutide Dose of Medication 3 mg What is the RX # from the faxed refill? How does patient take this med? Take 1 tab by mouth daily What Pharmacy did the fax come from: pt called this in Pharmacy fax #: [facility] Information from fax: What Prescription Plan does the patient have? BIN/PCN if applicable: Cardholder ID:[id number] Person Code: Relationship Code: Help desk phone: documented in this encounter Plan of Treatment Not on file documented as of this encounter Visit Diagnoses Not on filedocumented in this encounter Care Teams District Traffic Chief Relationship Specialty Start Date End Date Riccardo Robledo MD [facility] [place] [address] PCP - General Internal Medicine 12/28/19 Olga Ochoa MD [address] [place] [address] Specialist Lung Cancer Business Systems Administrator 03/07/21 Mina Dominguez PA-C 299 [facility] [address] [place] [address] Specialist Thoracic Surgery 04/29/22 Addison Winslow PA-C 175 [facility] [address] [place] [address] Specialist Neurosurgery 05/02/23 June Denton PA-C 175 [facility] 300 [place] [address] Specialist Neurosurgery 05/02/23 Nichole Otto MD [address] [facility] [address] [place] [address] Surgeon Neurosurgery 05/02/23 documented as of this encounter
--- OUTSIDE RECORDS SUMMARY | 2024-11-29 13:01 | XMS_ITS | Patient Health Record ---
[facility] Address [address] [place] [address] Care Team Providers Care Automatic Lathe Setter Name Role Phone Aston Davison Primary Care Provider Unav Xavi Cortes Unavailable [phone] Allergies Allergen (clinical drug ingredient) Drug/Non Drug [...] TH EVERY DAY Oral; Duration: 90 Active [id number] Ethyl Esters 1 GM TAKE 2 CAPSULES [...] Medicare [employer] [address] [place] [address] [id number] Jv Monroy Self - patient is the insured 4 Medical (General) History Medical History History ICD Code Arthritis asthma Back,Hip,and Knee pain Broken bones Headaches/Migraines High blood pressure Lung disease nerve disorder Surgical History Surgery Date(Month/Year) cervical fusion hernia leg surgery nose
--- OUTSIDE RECORDS SUMMARY | 2024-11-29 13:02 | XMS_ITS | Encounter Summary ---
Author Organization [facility] Address [address] [place] [address] Care Team Providers Care Support Teacher Name Role Phone Riccardo Robledo MD Primary Care Provider Olga Ochoa MD Unavailable Mina DominguezC Unavailable [phone] Addison Winslow PA-C Unavailable June Denton PA-C Unavailable [phone] Nichole Otto MD Unavailable [phone] Encounter Details Date Type Department Care Team Description 09/04/2020 Vacuum Applicator Operator Report Medical Records [address] [place] [address] [place] Jr., MD Social History Tobacco Use Types Packs/Day [...] on filedocumented in this encounter Care Teams Support Teacher Relationship Specialty Start Date End Date Riccardo Robledo MD [address] [place] [address] PCP - General Internal Medicine 12/28/19 Olga Ochoa MD [address] [place] [address] Specialist Lung Cancer Optometric Assistant 03/07/21 Mina Dominguez PA-C 299 [facility] [address] [place] [address] Specialist Thoracic Surgery 04/29/22 Addison Winslow PA-C 175 [facility] [address] [place] [address] Specialist Neurosurgery 05/02/23 June Denton PA-C 175 [facility] 300 [place] [address] Specialist Neurosurgery 05/02/23 Nichole Otto MD 175 [facility] 300 [place] [address] Surgeon Neurosurgery 05/02/23 documented as of this encounter
--- OUTSIDE RECORDS SUMMARY | 2024-11-29 13:02 | XMS_ITS | Encounter Summary ---
Author Organization [facility] Address [address] [place] [address] Care Team Providers Care Frit Mixer Name Role Phone Riccardo Robledo MD Primary Care Provider [phone] Olga Ochoa MD Unavailable Mina Dominguez-C Unavailable Addison Winslow PA-C Unavailable June Denton PA-C Unavailable Nichole Otto MD Unavailable [phone] Encounter Details Date Type Department Care Team Description 09/12/2020 Mailroom Personnel Report Medical Records [address] [place] [address] Richie Alba MD, PHD Social History Tobacco [...] on filedocumented in this encounter Care Teams Frit Mixer Relationship Specialty Start Date End Date Riccardo Robledo, [address] [place] [address] PCP - General Internal Medicine 12/28/19 Olga Ochoa MD [address] [place] [address] Specialist Lung Cancer Seafood Process Worker 03/07/21 Mina Dominguez PA-C 299 [facility] 410 [place] [address] Specialist Thoracic Surgery 04/29/22 Addison Winslow PA-C 175 [facility] [address] [place] [address] Specialist Neurosurgery 05/02/23 June Denton PA-C 175 [facility] 300 [place] [address] Specialist Neurosurgery 05/02/23 Nichole Otto MD 175 [facility] 300 [place] [address] Surgeon Neurosurgery 05/02/23 documented as of this encounter
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
--- OUTSIDE RECORDS SUMMARY | 2024-11-29 13:02 | XMS_ITS | Encounter Summary ---
Author Organization [facility] Address [address] [place] [address] Care Team Providers Care Metal Pickling Equipment Operator Name Role Phone Riccardo Robledo MD Primary Care Provider [phone] Olga Ochoa MD Unavailable Mina Dominguez PA-C Unavailable [phone] Addison Winslow PA-C Unavailable June Denton-Will Unavailable Nichole Otto MD Unavailable [phone] Reason for Visit * Reason Onset Date Comments Prior Authorization 07/25/2023 Encounter Details Date Type Department Care Team Description 07/25/2023 Telephone General Surgery - [place] 175 [facility] [address] [place] [address] Sahara Villela MD [address] [place] [address] [address] [place] [address] Prior Authorization Social History Tobacco Use Types [...] encounter Miscellaneous Notes * Telephone Encounter - Luis Alberton Masters - 07/25/2023 9:13 AM EDT Pt called saying a prior authorization needs to be done for the Monjaro that was prescribed. documented in this encounter Plan of Treatment Not on file documented as of this encounter Visit Diagnoses Not on filedocumented in this encounter Care Teams Metal Pickling Equipment Operator Relationship Specialty Start Date End Date Riccardo Robledo MD [address] [place] [address] PCP - General Internal Medicine 12/28/19 Olga Ochoa MD [address] [place] [address] Specialist Lung Cancer Pellet Preparation Operator 03/07/21 Mina Dominguez PA-C [address] [phone] Specialist Thoracic Surgery 04/29/22 Addison Winslow PA-C 175 [facility] [address] [place] [address] Specialist Neurosurgery 05/02/23 June Denton PA-C [address] [address] Specialist Neurosurgery 05/02/23 Nichole Otto MD [address] [address] Surgeon Neurosurgery 05/02/23 documented as of this encounter
--- OUTSIDE RECORDS SUMMARY | 2024-11-29 13:02 | XMS_ITS | Encounter Summary ---
Author Organization [facility] Address [address] [place] [address] Care Team Providers Care Aircraft Engine Mechanic Supervisor Name Role Phone Riccardo Robledo MD Primary Care Provider Olga Ochoa MD Unavailable Mina Dominguez PA-C Unavailable Addison Winslow PA-C Unavailable June Denton PA-C Unavailable Nichole Otto MD Unavailable [phone] Reason for Visit * Reason Comments E-prescribe Rx Request Encounter Details Date Type Department Care Team Description 11/11/2020 Refill Adult Medicine - [address] [address] Anastasiya Gary PA-C E-prescribe Rx Request Social [...] - 11/21/20 * Telephone Encounter - Sylvia Cazares - 11/13/2020 2:15 PM EDT Patient would [...] / Plan: [place] / Product Type: MEDICARE [id number] documented in this encounter Plan of Treatment Not on file documented as of this encounter Visit Diagnoses Not on filedocumented in this encounter Care Teams Aircraft Engine Mechanic Supervisor Relationship Specialty Start Date End Date Riccardo Robledo MD [address] [place] [address] PCP - General Internal Medicine 12/28/19 Olga Ochoa MD 230 [place] [address] Specialist Lung Cancer Medical Assistant 03/07/21 Mina Dominguez PA-C [address] [phone] Specialist Thoracic Surgery 04/29/22 Addison Winslow PA-C 175 [facility] [address] [place] [address] Specialist Neurosurgery 05/02/23 June Denton PA-C [address] [address] Specialist Neurosurgery 05/02/23 Nichole Otto MD [address] [address] Surgeon Neurosurgery 05/02/23 documented as of this encounter
--- OUTSIDE RECORDS SUMMARY | 2024-11-29 13:02 | XMS_ITS | Encounter Summary ---
Author Organization [facility] Address [address] [place] [address] Care Team Providers Care Pin Drafting Machine Tender Name Role Phone Riccardo Robledo MD Primary Care Provider Olga Ochoa MD Unavailable Mina Dominguez PA-C Unavailable [phone] Addison Winslow PA-C Unavailable June Denton-Will Unavailable Nichole Otto MD Unavailable [phone] Reason for Visit * Reason Onset Date Comments refill request 06/30/2020 Encounter Details Date Type Department Care Team Description 06/30/2020 Refill Adult Medicine - [place] [address] [place], [place] [phone] Riccardo Robledo MD [address] [place] [address] refill request Social History Tobacco Use Types [...] on filedocumented in this encounter Care Teams Pin Drafting Machine Tender Relationship Specialty Start Date End Date Riccardo Robledo MD 230 [place] [address] PCP - General Internal Medicine 12/28/19 Olga Ochoa MD [address] [place] [address] Specialist Lung Cancer Draw Frame Runner 03/07/21 Mina Dominguez PA-C 299 [facility] [address] [place] [address] Specialist Thoracic Surgery 04/29/22 Addison Winslow PA-C 175 [facility] [address] [place] [address] Specialist Neurosurgery 05/02/23 June Denton PA-C 175 [facility] [address] [place] [address] Specialist Neurosurgery 05/02/23 Nichole Otto MD 175 [facility] [address] [place] [address] Surgeon Neurosurgery 05/02/23 documented as of this encounter
--- OUTSIDE RECORDS SUMMARY | 2024-11-29 13:02 | XMS_ITS | Encounter Summary ---
Author Organization [facility] Address [address] [place] [address] Care Team Providers Care Band Maker Name Role Phone Riccardo Robledo MD Primary Care Provider [phone] Olga Ochoa MD Unavailable Mina Dominguez-C Unavailable Addison Winslow-C Unavailable June Denton-Will Unavailable Nichole Otto MD Unavailable [phone] Encounter Details Date Type Department Care Team Description 09/07/2021 Pt. Non Urgent Medic al Question Adult Medicine - [place] [address] [place] [address] Riccardo Robledo MD [address] [place] [address] Social History Tobacco Use Types Packs/Day Years [...] AM EDT Subject: My test results from [facility] cardiology Do you have my test results of my ultrasound documented in this encounter Plan of Treatment Not on file documented as of this encounter Visit Diagnoses Not on filedocumented in this encounter Care Teams Band Maker Relationship Specialty Start Date End Date Riccardo Robledo MD [address] [place] [address] PCP - General Internal Medicine 12/28/19 Olga Ochoa MD [address] [place] [address] Specialist Lung Cancer Veterinary Toxicologist 03/07/21 Mina Dominguez PA-C 299 [facility] 410 [place] [address] Specialist Thoracic Surgery 04/29/22 Addison Winslow PA-C 175 [facility] [address] [place] [address] Specialist Neurosurgery 05/02/23 June Denton PA-C 175 [facility] [address] [place] [address] Specialist Neurosurgery 05/02/23 Nichole Otto MD 175 [facility] [address] [place] [address] Surgeon Neurosurgery 05/02/23 documented as of this encounter
--- OUTSIDE RECORDS SUMMARY | 2024-11-29 13:02 | XMS_ITS | Encounter Summary ---
Author Organization [facility] Address [address] [place] [address] Care Team Providers Care Utilization Review Specialist Name Role Phone Riccardo Robledo MD Primary Care Provider [phone] Olga Ochoa MD Unavailable Mina Dominguez PA-C Unavailable [phone] Addison Winslow PA-C Unavailable June Denton-Will Unavailable Nichole Otto MD Unavailable [phone] Reason for Visit * Reason Onset Date Comments Imaging Review 12/17/2021 L shoulder MRI Encounter Details Date Type Department Care Team Description 12/17/2021 Telephone [facility] Medical [facility] [address] [place] [address] [place] [phone] Sharmila Martinez APRN Imaging Review (L [...] on filedocumented in this encounter Care Teams Utilization Review Specialist Relationship Specialty Start Date End Date Riccardo Robledo MD [address] [place] [address] PCP - General Internal Medicine 12/28/19 Olga Ochoa MD [address] [place] [address] Specialist Lung Cancer Director Of Medical Education 03/07/21 Mina Dominguez PA-C [address] [phone] Specialist Thoracic Surgery 04/29/22 Addison Winslow PA-C 175 [facility] [address] [place] [address] Specialist Neurosurgery 05/02/23 June Detnon PA-C 175 [facility] [address] [place] [address] Specialist Neurosurgery 05/02/23 Nichole Otto MD 175 [facility] [address] [place] [address] Surgeon Neurosurgery 05/02/23 documented as of this encounter
--- OUTSIDE RECORDS SUMMARY | 2024-11-29 13:02 | XMS_ITS | Encounter Summary ---
Author Organization [facility] Address [address] [place] [address] Care Team Providers Care Driver Guard Name Role Phone Riccardo Robledo MD Primary Care Provider Olga Ochoa MD Unavailable Mina DominguezC Unavailable [phone] Addison Winslow PA-C Unavailable June Denton PA-C Unavailable [phone] Nichole tOto MD Unavailable [phone] Encounter Details Date Type Department Care Team Description 12/14/2020 Orders Only Medical Records [address] [place] [address] Abstract, Provider Social History Tobacco Use Types [...] have Coronavirus / COVID-19? Unable to assess 12/13/2020 8:42 AM EDT documented as of this encounter Plan of Treatment Not on file documented as of this encounter Visit Diagnoses Not on filedocumented in this encounter Care Teams Driver Guard Relationship Specialty Start Date End Date Riccardo Robledo MD 230 [place] [address] PCP - General Internal Medicine 12/28/19 Olga Ochoa MD [address] [place] [address] Specialist Lung Cancer Property Clerk 03/07/21 Mina Dominguez PA-C 299 [facility] [address] [place] [address] Specialist Thoracic Surgery 04/29/22 Addison Winslow PA-C 175 [facility] [address] [place] [address] Specialist Neurosurgery 05/02/23 June Denton PA-C [address] [facility] [address] [place] [address] Specialist Neurosurgery 05/02/23 Nichole Otto MD [address] [facility] [address] [place] [address] Surgeon Neurosurgery 05/02/23 documented as of this encounter
--- OUTSIDE RECORDS SUMMARY | 2024-11-29 13:02 | XMS_ITS | Encounter Summary ---
Author Organization [facility] Address [address] [place] [address] Care Team Providers Care Hand Clipper Name Role Phone Riccardo Robledo MD Primary Care Provider Olga Ochoa MD Unavailable Mina Dominguez PA-C Unavailable [phone] Addison Winslow PA-C Unavailable June Denton PA-C Unavailable [phone] Nichole Otto MD Unavailable [phone] Encounter Details Date Type Department Care Team Description 07/18/2020 Supply Chain Assistant Report Medical Records [address] [place] [address] Shaye Castro, CHAR Social History Tobacco Use [...] on filedocumented in this encounter Care Teams Hand Clipper Relationship Specialty Start Date End Date Riccardo Robledo MD 230 [place] [address] PCP - General Internal Medicine 12/28/19 Olga Ochoa MD [address] [place] [address] Specialist Lung Cancer Financial Systems Manager 03/07/21 Mina Dominguez PA-C 299 [facility] [address] [place] [address] Specialist Thoracic Surgery 04/29/22 Addison Winslow PA-C 175 [facility] [address] [place] [address] Specialist Neurosurgery 05/02/23 June Denton PA-C 175 [facility] 300 [place] [address] Specialist Neurosurgery 05/02/23 Nichole Otto MD 175 [facility] [address] [place] [address] Surgeon Neurosurgery 05/02/23 documented as of this encounter
--- OUTSIDE RECORDS SUMMARY | 2024-11-29 13:02 | XMS_ITS | Encounter Summary ---
Author Organization [facility] Address [address] [place] [address] Care Team Providers Care Hardwood Floor Sander Name Role Phone Riccardo Robledo MD Primary Care Provider Olga Ochoa MD Unavailable Mina Dominguez PA-C Unavailable [phone] Addison Winslow PA-C Unavailable June Denton PA-C Unavailable [phone] Nichole Otto MD Unavailable [phone] Encounter Details Date Type Department Care Team Description 10/16/2020 Business Doc Medical Records [address] [place] [address] Abstract, Provider Social History Tobacco Use Types [...] on filedocumented in this encounter Care Teams Hardwood Floor Sander Relationship Specialty Start Date End Date Riccardo Robledo MD 230 [place] [address] PCP - General Internal Medicine 12/28/19 Olga Ochoa MD [address] [place] [address] Specialist Lung Cancer Cast Iron Drain Pipe Layer 03/07/21 Mina Dominguez PA-C 299 [facility] 410 [place] [address] Specialist Thoracic Surgery 04/29/22 Addison Winslow PA-C 175 [facility] 300 [place] [address] Specialist Neurosurgery 05/02/23 June eDnton PA-C 175 [facility] 300 [place] [address] Specialist Neurosurgery 05/02/23 Nichole Otto MD 175 [facility] 300 [place] [address] Surgeon Neurosurgery 05/02/23 documented as of this encounter
--- OUTSIDE RECORDS SUMMARY | 2024-11-29 13:02 | XMS_ITS | Encounter Summary ---
Author Organization [facility] Address [address] [place] [address] Care Team Providers Care Customer Development Representative Name Role Phone Riccardo Robledo MD Primary Care Provider Olga Ochoa MD Unavailable Mina Dominguez PA-C Unavailable [phone] Addison Winslow PA-C Unavailable [phone] June Denton PA-C Unavailable [phone] Nichole Otto MD Unavailable [phone] Encounter Details Date Type Department Care Team Description 12/16/2020 Lsat Instructor Report Medical Records [address] [place], [place] [id number] [place] [address], [facility]2 [place] [address] Social History Tobacco Use Types Packs/Day Years [...] on filedocumented in this encounter Care Teams Customer Development Representative Relationship Specialty Start Date End Date Riccardo Robledo MD [address] [place] [address] PCP - General Internal Medicine 12/28/19 Olga Ochoa MD 230 [place] [address] Specialist Lung Cancer R Programmer 03/07/21 Mina Dominguez PA-C [address] [phone] Specialist Thoracic Surgery 04/29/22 Addison Winslow PA-C 175 [facility] 300 [place] [address] Specialist Neurosurgery 05/02/23 June Denton PA-C 175 [facility] [address] [place] [address] Specialist Neurosurgery 05/02/23 Nichole Otto MD [address] [address] Surgeon Neurosurgery 05/02/23 documented as of this encounter
--- OUTSIDE RECORDS SUMMARY | 2024-11-29 13:02 | XMS_ITS | Encounter Summary ---
Author Organization [facility] Address [address] [place] [address] Care Team Providers Care Strategic Solutions Consultant Name Role Phone Riccardo Robledo MD Primary Care Provider Olga Ochoa MD Unavailable Mina Dominguez PA-C Unavailable [phone] Addison Winslow PA-C Unavailable [phone] June Denton PA-C Unavailable [phone] Nichole Otto MD Unavailable [phone] Encounter Details Date Type Department Care Team Description 08/30/2021 Turning Sander Operator Report Medical Records [address] [place] [address] Social History Tobacco Use Types Packs/Day Years [...] was confirmed or suspected to have Coronavirus/COVID-19? Unable to assess 08/29/2021 3:24 PM EDT documented as of this encounter Plan of Treatment Not on file documented as of this encounter Visit Diagnoses Not on filedocumented in this encounter Care Teams Strategic Solutions Consultant Relationship Specialty Start Date End Date Riccardo Robledo MD [address] [place] [address] PCP - General Internal Medicine 12/28/19 Olga Ochoa MD 230 [place] [address] Specialist Lung Cancer Internet E Commerce Specialist 03/07/21 Mina Dominguez PA-C 299 [facility] 410 [place] [address] Specialist Thoracic Surgery 04/29/22 Addison Winslow PA-C 175 [facility] [address] [place] [address] Specialist Neurosurgery 05/02/23 uJne Denton PA-C 175 [facility] 300 [place] [address] Specialist Neurosurgery 05/02/23 Nichole Otto MD 175 [facility] [address] [place] [address] Surgeon Neurosurgery 05/02/23 documented as of this encounter
--- OUTSIDE RECORDS SUMMARY | 2024-11-29 13:02 | XMS_ITS | Encounter Summary ---
Author Organization [facility] Address [address] [place] [address] Care Team Providers Care Regional Geodetic Advisor Name Role Phone Riccardo Robledo MD Primary Care Provider Olga Ochoa MD Unavailable Mina Dominguez PA-C Unavailable Addison Winslow PA-C Unavailable June Denton-Will Unavailable Nichole Otto MD Unavailable [phone] Reason for Visit * Reason Onset Date Comments Provider Call Back 06/22/2020 Encounter Details Date Type Department Care Team Description 06/22/2020 Telephone Adult Medicine - [place] [address] [place], [place] [id number] Riccardo Robledo MD [address] [place] [address] Provider Call Back Social History Tobacco Use [...] Telephone Encounter - Riccardo Robledo MD - 06/23/2020 12:01 PM EDT Spoke to patient discussed care * Telephone Encounter - Kenzie Beckett M.A. - 06/23/2020 9:50 AM EDT Patient calling back ended up going to [facility] ER 06/22/20 for arm pain. Asking to speak with only you,Does not want to wait until appt. * Telephone Encounter - Rain Kumari - 06/23/2020 9:35 AM EDT Patient calling back ended up going to [facility] ER 06/22/20 for arm pain. Asking to speak with Nirmal. Does not want to wait until appt. * Telephone Encounter - Riccardo Robledo MD - 06/23/2020 9:20 AM EDT Will discuss at visit * Telephone Encounter - Rain Kumari - 06/22/2020 11:34 AM EDT Caller requesting call back from provider: Is the caller the patient? YES If caller is not the patient, what is the callers name? N/A Callers relationship to patient? N/A If person calling is not the patient themselves, is there a verbal release in FYI or permanent comments for this person: Reason for call back: Patient asking to discuss his arm pain and nerve damage with pcp. States he met with his surgeon and they are going to take out his esophigal plate. They advised against burningthe nerves in arm. Patient wants to discuss what he is going to do because he does not want to be in pain the rest of his life. Asking to speak with Mireya Robledo only about this. Caller offered to speak with the nurse for assistance: YES Response: Patient offered to speak with nurse for assistance and patient agreed. Message forwarded to nurse. documented in this encounter Plan of Treatment Not on file documented as of this encounter Visit Diagnoses Not on filedocumented in this encounter Care Teams Regional Geodetic Advisor Relationship Specialty Start Date End Date Riccardo Robledo MD [address] [place] [address] PCP - General Internal Medicine 12/28/19 Olga Ochoa MD [address] [place] [address] Specialist Lung Cancer Harness Fitter 03/07/21 Mina Dominguez PA-C 299 [facility] [address] [place] [address] Specialist Thoracic Surgery 04/29/22 Addison Winslow PA-C 175 [facility] [address] [place] [address] Specialist Neurosurgery 05/02/23 June Denton PA-C 175 [facility] [address] [place] [address] Specialist Neurosurgery 05/02/23 Nichole Otto MD 175 [facility] [address] [place] [address] Surgeon Neurosurgery 05/02/23 documented as of this encounter
--- OUTSIDE RECORDS SUMMARY | 2024-11-29 13:02 | XMS_ITS | Encounter Summary ---
Author Organization [facility] Address [address] [place] [address] Care Team Providers Care Department Store Door Greeter Name Role Phone Riccardo Robledo MD Primary Care Provider Olga Ochoa MD Unavailable Mina Dominguez PA-C Unavailable Addison Winslow PA-C Unavailable [phone] June Denton-Will Unavailable Nichole Otto MD Unavailable [phone] Reason for Visit * Reason Comments E-prescribe Rx Request Encounter Details Date Type Department Care Team Description 10/19/2020 Refill Adult Medicine - [place] [address] [place] [address] Riccardo Robledo, [address] [place] [address] E-prescribe Rx Request Social History Tobacco Use [...] encounter Miscellaneous Notes * Telephone Encounter - Sylvia Cazares - 10/19/2020 2:40 PM EDT Patient would like script to [...] insurance carrier is: [place] / Plan: MEDICARE-BIG Launcher / Product Type: MEDICARE [id number] documented in this encounter Plan of Treatment Not on file documented as of this encounter Visit Diagnoses Not on filedocumented in this encounter Care Teams Department Store Door Greeter Relationship Specialty Start Date End Date Riccardo Robledo MD [address] [place] [address] PCP - General Internal Medicine 12/28/19 Olga Ochoa MD [address] [place] [address] Specialist Lung Cancer Casino Cage Manager 03/07/21 Mina Domniguez PA-C 299 [facility] [address] [place] [address] Specialist Thoracic Surgery 04/29/22 Addison Winslow PA-C 175 [facility] [address] [place] [address] Specialist Neurosurgery 05/02/23 June Denton PA-C 175 [facility] [address] [place], [place] [phone] Specialist Neurosurgery 05/02/23 Nichole Otto MD 175 [facility] [address] [place], [place] [address] Surgeon Neurosurgery 05/02/23 documented as of this encounter
--- OUTSIDE RECORDS SUMMARY | 2024-11-29 13:02 | XMS_ITS | Encounter Summary ---
Author Organization [facility] Address [address] [place] [address] Care Team Providers Care Event Organizer Name Role Phone Riccrado Robledo MD Primary Care Provider [phone] Olga Ochoa MD Unavailable Mina Dominguez PA-C Unavailable Addison Winslow PA-C Unavailable [phone] June Denton PA-C Unavailable [phone] Nichole Otto MD Unavailable [phone] Encounter Details Date Type Department Care Team Description 11/20/2021 Orders Only [facility] Thoracic Surgery [place] 299 [facility] [address] [place] [phone] Ly Kraus PA-C 299 [facility] [place] [address] [place] [phone] Dysphagia, unspecified type Social History Tobacco Use [...] type documented in this encounter Care Teams Event Organizer Relationship Specialty Start Date End Date Riccardo Robledo MD [address] [place] [address] PCP - General Internal Medicine 12/28/19 Olga Ochoa MD [address] [place] [address] Specialist Lung Cancer Creative Services Specialist 03/07/21 Mina Dominguez PA-C 299 [facility] [address] [place] [address] Specialist Thoracic Surgery 04/29/22 Addison Winslow PA-C 175 [facility] [address] [place] [address] Specialist Neurosurgery 05/02/23 June Denton PA-C 175 [facility] [address] [place] [address] Specialist Neurosurgery 05/02/23 Nichole Otto MD 175 [facility] [address] [place] [address] Surgeon Neurosurgery 05/02/23 documented as of this encounter
--- OUTSIDE RECORDS SUMMARY | 2024-11-29 13:02 | XMS_ITS | Encounter Summary ---
Author Organization [facility] Address [address] [place] [address] Care Team Providers Care Bulk Picker Name Role Phone Riccardo Robledo MD Primary Care Provider Olga Ochoa MD Unavailable Mina Dominguez PA-C Unavailable [phone] Addison Winslow PA-C Unavailable June Denton-C Unavailable Nichole Otto MD Unavailable [phone] Reason for Visit * Reason Onset Date Comments Error 10/02/2021 Encounter Details Date Type Department Care Team Description 10/02/2021 Refill Adult Medicine - [place] [address] [place], [place] [phone] Riccardo Robledo MD [address] [place], [place] [phone] Error Social History Tobacco Use Types Packs/Day [...] suspected to have Coronavirus/COVID-19? Unable to assess 10/03/2021 4:58 PM EDT documented as of this encounter Plan of Treatment Not on file documented as of this encounter Visit Diagnoses Not on filedocumented in this encounter Care Teams Bulk Picker Relationship Specialty Start Date End Date Riccardo Robledo MD [address] [place] [address] PCP - General Internal Medicine 12/28/19 Olga Ochoa MD [address] [place] [address] Specialist Lung Cancer Blanket Winder Helper 03/07/21 Mina Dominguez PA-C 299 [facility] [address] [place] [phone] Specialist Thoracic Surgery 04/29/22 Addison Winslow PA-C 175 [facility] [address] [place] [address] Specialist Neurosurgery 05/02/23 June Denton PA-C 175 [facility] [address] [place] [address] Specialist Neurosurgery 05/02/23 Nichole Otto MD 175 [facility] [address] [place] [address] Surgeon Neurosurgery 05/02/23 documented as of this encounter
--- OUTSIDE RECORDS SUMMARY | 2024-11-29 13:02 | XMS_ITS | Encounter Summary ---
Author Organization [facility] Address [address] [place] [address] Care Team Providers Care Woods Manager Name Role Phone Riccardo Robledo MD Primary Care Provider [phone] Olga Ochoa MD Unavailable Mina Dominguez PA-C Unavailable [phone] Addison Winslow-C Unavailable June Denton-Will Unavailable Nichole Otto MD Unavailable [phone] Encounter Details Date Type Department Care Team Description 01/04/2022 Refill Adult Medicine - [place] [address] [place] [address] Riccardo Robledo MD [address] [place], [place] [phone] Social History Tobacco Use Types Packs/Day Years [...] on filedocumented in this encounter Care Teams Woods Manager Relationship Specialty Start Date End Date Riccardo Robledo MD [address] [place] [address] PCP - General Internal Medicine 12/28/19 Olga Ochoa MD [address] [place] [address] Specialist Lung Cancer Hotel Night Auditor 03/07/21 Mina Dominguez PA-C 299 [facility] [address] [place] [phone] Specialist Thoracic Surgery 04/29/22 Addison Winslow PA-C 175 [facility] [address] [place] [address] Specialist Neurosurgery 05/02/23 June Denton PA-C 175 [facility] [address] [place] [address] Specialist Neurosurgery 05/02/23 Nichole Otto MD [address] [address] Surgeon Neurosurgery 05/02/23 documented as of this encounter
--- OUTSIDE RECORDS SUMMARY | 2024-11-29 13:02 | XMS_ITS | Encounter Summary ---
Author Organization [facility] Address [address] [place] [address] Care Team Providers Care Investor Relations Director Name Role Phone Riccardo Robledo MD Primary Care Provider [phone] Olga Ochoa MD Unavailable Mina Dominguez-C Unavailable Addison Winslow-C Unavailable June Denton PA-C Unavailable Nichole Otto MD Unavailable [phone] Encounter Details Date Type Department Care Team Description 01/05/2021 Orders Only Adult Medicine - [place] [address] [place] [address] Riccardo Robledo MD [address] [place], [place] [phone] Social History Tobacco Use Types Packs/Day Years [...] have Coronavirus / COVID-19? No / Unsure 01/08/2021 10:04 AM EDT documented as of this encounter Plan of Treatment Not on file documented as of this encounter Visit Diagnoses Not on filedocumented in this encounter Care Teams Investor Relations Director Relationship Specialty Start Date End Date Riccardo Robledo MD [address] [place] [address] PCP - General Internal Medicine 12/28/19 Olga Ochoa MD [address] [place] [address] Specialist Lung Cancer Idea Man 03/07/21 Mina Dominguez PA-C 299 [facility] [address] [place] [phone] Specialist Thoracic Surgery 04/29/22 Addison Winslow PA-C [address] [address] Specialist Neurosurgery 05/02/23 June Denton PA-C 175 [facility] [address] [place] [address] Specialist Neurosurgery 05/02/23 Nichole Otto MD [address] [address] Surgeon Neurosurgery 05/02/23 documented as of this encounter
--- OUTSIDE RECORDS SUMMARY | 2024-11-29 13:02 | XMS_ITS | Encounter Summary ---
Author Organization [facility] Address [address] [place] [address] Care Team Providers Care Orientation And Mobility Instructor Name Role Phone Riccardo Robledo MD Primary Care Provider [phone] Olga Ochoa MD Unavailable Mina Dominguez-C Unavailable Addison Winslow-C Unavailable June Denton PA-C Unavailable [phone] Nichole Otto MD Unavailable [phone] Encounter Details Date Type Department Care Team Description 12/10/2021 Orders Only [facility] 175 [facility] [address] [place] [address] Sharmila Martinez APRN Nontraumatic incomplete [...] shoulder documented in this encounter Care Teams Orientation And Mobility Instructor Relationship Specialty Start Date End Date Riccardo Robledo MD [address] [place] [address] PCP - General Internal Medicine 12/28/19 Olga Ochoa MD [address] [place] [address] Specialist Lung Cancer Airline Dispatcher 03/07/21 Mina Dominguez PA-C 299 [facility] [address] [place] [address] Specialist Thoracic Surgery 04/29/22 Addison Winslow PA-C 175 [facility] [address] [place] [address] Specialist Neurosurgery 05/02/23 June Denton PA-C 175 [facility] [address] [place] [address] Specialist Neurosurgery 05/02/23 Nichole Otto MD [address] [address] Surgeon Neurosurgery 05/02/23 documented as of this encounter
--- OUTSIDE RECORDS SUMMARY | 2024-11-29 13:02 | XMS_ITS | Encounter Summary ---
Author Organization [facility] Address [address] [place] [address] Care Team Providers Care Wine Blender Name Role Phone Riccardo Robledo MD Primary Care Provider Olga Ochoa MD Unavailable Mina Dominguez PA-C Unavailable Addison Winslow PA-C Unavailable June Denton-C Unavailable Nichole Otto MD Unavailable [phone] Reason for Visit * Reason Onset Date Comments er follow up 07/06/2020 Encounter Details Date Type Department Care Team Description 07/06/2020 Telephone Adult Medicine - [place] [address] [place], [place] [phone] Riccardo Robledo MD [address] [place] [address] er follow up Social History Tobacco Use [...] encounter Miscellaneous Notes * Telephone Encounter - Gladys Luis M.A. - 07/07/2020 9:28 AM EDT Notes obtain and given to provider ERIC. * Telephone Encounter - Ellen Waterman - 07/06/2020 3:40 PM EDT Faxed request for notes with confirmation. * Telephone Encounter - Mily Amador - 07/06/2020 3:13 PM EDT Patient has pre op scheduled tomorrow. He was seen at [facility] last night. Asking for those notesto be given to Dr. Swanson. Please advise. documented in this encounter Plan of Treatment Not on file documented as of this encounter Visit Diagnoses Not on filedocumented in this encounter Care Teams Wine Blender Relationship Specialty Start Date End Date Riccardo Robledo MD [address] [place] [address] PCP - General Internal Medicine 12/28/19 Olga Ochoa MD [address] [place] [address] Specialist Lung Cancer Tree Farmer 03/07/21 Mina Dominguez PA-C 299 [facility] [place] [address] [place] [address] Specialist Thoracic Surgery 04/29/22 Addison Winslow PA-C 175 [facility] [address] [place] [address] Specialist Neurosurgery 05/02/23 June Denton PA-C 175 [facility] [address] [place] [address] Specialist Neurosurgery 05/02/23 Nichole Otto MD [address] [address] Surgeon Neurosurgery 05/02/23 documented as of this encounter
--- OUTSIDE RECORDS SUMMARY | 2024-11-29 13:02 | XMS_ITS | Encounter Summary ---
Author Organization [facility] Address [address] [place] [address] Care Team Providers Care Library Media Specialist Name Role Phone Riccardo Robledo MD Primary Care Provider Olga Ochoa MD Unavailable Mina Dominguez PA-C Unavailable Addison Winslow PA-C Unavailable [phone] June Denton-C Unavailable Nichole Otto MD Unavailable [phone] Reason for Visit * Reason Onset Date Comments other 01/07/2022 CSC copy Encounter Details Date Type Department Care Team Description 01/07/2022 Telephone Adult Medicine - [place] [address] [place], [place] [phone] Riccardo Robledo MD [address] [place] [address] other (CSC copy ) Social History Tobacco [...] up appointment on 01/04/[address] in [place]. Please review documented in this encounter Plan of Treatment Not on file documented as of this encounter Visit Diagnoses Not on filedocumented in this encounter Care Teams Library Media Specialist Relationship Specialty Start Date End Date Riccardo Robledo MD [address] [place] [address] PCP - General Internal Medicine 12/28/19 Olga Ochoa MD [address] [place] [address] Specialist Lung Cancer Content Assistant 03/07/21 Mina Dominguez PA-C 299 [facility] [address] [place] [phone] Specialist Thoracic Surgery 04/29/22 Addison Winslow PA-C 175 [facility] [address] [place] [address] Specialist Neurosurgery 05/02/23 June Denton PA-C 175 [facility] [address] [place] [address] Specialist Neurosurgery 05/02/23 Nichole Otto MD 175 [facility] [address] [place] [address] Surgeon Neurosurgery 05/02/23 documented as of this encounter
--- OUTSIDE RECORDS SUMMARY | 2024-11-29 13:02 | XMS_ITS | Encounter Summary ---
Author Organization [facility] Address [address] [place] [address] Care Team Providers Care Bite Block Maker Name Role Phone Riccardo Robledo MD Primary Care Provider Olga Ochoa MD Unavailable Mina Dominguez-C Unavailable [phone] Addison Winslow PA-C Unavailable June Denton PA-C Unavailable [phone] Nichloe Otto MD Unavailable [phone] Encounter Details Date Type Department Care Team Description 07/05/2020 [facility] [address] [place] [address] Wilamr Beal MD Social History Tobacco Use Types [...] on filedocumented in this encounter Care Teams Bite Block Maker Relationship Specialty Start Date End Date Riccardo Robledo MD [address] [place] [address] PCP - General Internal Medicine 12/28/19 Olga Ochoa MD [address] [place] [address] Specialist Lung Cancer Log Handling Equipment Operator 03/07/21 Mina Dominguez PA-C 299 [facility] [address] [place] [address] Specialist Thoracic Surgery 04/29/22 Addison Winslow PA-C 175 [facility] [address] [place] [address] Specialist Neurosurgery 05/02/23 June Denton PA-C 175 [facility] [address] [place] [address] Specialist Neurosurgery 05/02/23 Nichole Otto MD 175 [facility] [address] [place] [address] Surgeon Neurosurgery 05/02/23 documented as of this encounter
--- OUTSIDE RECORDS SUMMARY | 2024-11-29 13:02 | XMS_ITS | Encounter Summary ---
Author Organization [facility] Address [address] [place] [address] Care Team Providers Care Traffic Chief Name Role Phone Riccardo Robledo MD Primary Care Provider [phone] Olga Ochoa MD Unavailable Mina Dominguez PA-C Unavailable Addison Winslow-C Unavailable [phone] June Denton-Will Unavailable Nichole Otto MD Unavailable [phone] Encounter Details Date Type Department Care Team Description 12/07/2020 Telephone Adult Medicine - [place] [address] [place], [place] [phone] Riccardo Robledo MD [address] [place], [place] [phone] Social History Tobacco Use Types Packs/Day Years [...] filedocumented in this encounter Care Teams Traffic Chief Relationship Specialty Start Date End Date Riccardo Robledo MD [address] [place] [address] PCP - General Internal Medicine 12/28/19 Olga Ochoa MD [address] [place] [address] Specialist Lung Cancer Assembler Crimper 03/07/21 Mina Dominguez PA-C 299 [facility] [address] [place] [address] Specialist Thoracic Surgery 04/29/22 Addison Winslow PA-C [address] [address] Specialist Neurosurgery 05/02/23 June Denton PA-C 175 [facility] [address] [place] [address] Specialist Neurosurgery 05/02/23 Nichole Otto MD [address] [address] Surgeon Neurosurgery 05/02/23 documented as of this encounter
--- OUTSIDE RECORDS SUMMARY | 2024-11-29 13:02 | XMS_ITS | Encounter Summary ---
Author Organization [facility] Address [address] [place] [address] Care Team Providers Care Public Transit Trolley Driver Name Role Phone Riccardo Robledo MD Primary Care Provider Olga Ochoa MD Unavailable Mina Dominguez PA-C Unavailable Addison Winslow PA-C Unavailable June Denton-Will Unavailable Nichole Otto MD Unavailable [phone] Reason for Visit * Reason Onset Date Comments Medication 12/12/2020 Encounter Details Date Type Department Care Team Description 12/12/2020 Telephone Adult Medicine - [place] [address] [place], [place] [phone] Riccardo Robledo MD [address] [place], [place] [phone] Medication Social History Tobacco Use Types Packs/Day [...] Telephone Encounter - Raymundo Stovall LPN - 12/20/2020 4:10 PM EDT Busy * Telephone Encounter - Raymundo Stovall LPN - 12/18/2020 7:54 AM EDT Busy signal * Telephone Encounter - Raymundo Stovall LPN - 12/12/2020 1:42 PM EDT Tried calling line busy * Telephone Encounter - Carole Maria - 12/12/2020 12:19 PM EDT Jv would like to talk with Raymundo in regards to his meds - please advise documented in this encounter Plan of Treatment Not on file documented as of this encounter Visit Diagnoses Not on filedocumented in this encounter Care Teams Public Transit Trolley Driver Relationship Specialty Start Date End Date Riccardo Robledo MD [address] [place] [address] PCP - General Internal Medicine 12/28/19 Olga Ochoa MD [address] [place] [address] Specialist Lung Cancer Judge'S Clerk 03/07/21 Mina Dominguez PA-C 299 [facility] [address] [place] [address] Specialist Thoracic Surgery 04/29/22 Addison Winslow PA-C 175 [facility] [address] [place] [address] Specialist Neurosurgery 05/02/23 June Denton PA-C [address] [address] Specialist Neurosurgery 05/02/23 Nichole Otto MD 175 [facility] [address] [place] [address] Surgeon Neurosurgery 05/02/23 documented as of this encounter
--- OUTSIDE RECORDS SUMMARY | 2024-11-29 13:02 | XMS_ITS | Encounter Summary ---
Author Organization [facility] Address [address] [place] [address] Care Team Providers Care Executive Director Name Role Phone Riccardo Robledo MD Primary Care Provider Olga Ochoa MD Unavailable Mina Dominguez PA-C Unavailable Addison Winslow PA-C Unavailable June Denton-Will Unavailable Nichole Otto MD Unavailable [phone] Reason for Visit * Reason Onset Date Comments medication problems 12/06/2020 Encounter Details Date Type Department Care Team Description 12/06/2020 Telephone Adult Medicine - [place] [address] [place], [place] [phone] Riccardo Robledo MD [address] [place], [place] [phone] medication problems Social History Tobacco Use Types [...] filedocumented in this encounter Care Teams Executive Director Relationship Specialty Start Date End Date Riccardo Robledo MD [address] [place] [address] PCP - General Internal Medicine 12/28/19 Olga Ochoa MD [address] [place] [address] Specialist Lung Cancer Assemblyman Or Woman 03/07/21 Mina Dominguez PA-C 299 [facility] [address] [place] [address] Specialist Thoracic Surgery 04/29/22 Addison Winslow PA-C 175 [facility] [address] [place] [address] Specialist Neurosurgery 05/02/23 June Denton PA-C 175 [facility] [address] [place] [address] Specialist Neurosurgery 05/02/23 Nichole Otto MD 175 [facility] [address] [place] [address] Surgeon Neurosurgery 05/02/23 documented as of this encounter
--- OUTSIDE RECORDS SUMMARY | 2024-11-29 13:02 | XMS_ITS | Encounter Summary ---
Author Organization [facility] Address [address] [place] [address] Care Team Providers Care Metalsmith Helper Name Role Phone Riccardo Robledo MD Primary Care Provider Olga Ochoa MD Unavailable Mina Dominguez PA-C Unavailable [phone] Addison Winslow PA-C Unavailable June Denton-Will Unavailable Nichole Otto MD Unavailable [phone] Reason for Visit * Reason Onset Date Comments medication problems 11/09/2021 oxyCODONE HC l 20 MG Tab and oxyCODONE HCl ER 20 MG Tablet Extended Release 12 hour Abuse-Deterrent Encounter Details Date Type Department Care Team Description 11/09/2021 Telephone Adult Medicine - [place] [address] [place] [address] Riccardo Robledo MD [address] [place] [address] medication problems (oxyCODONE HCl 20 MG Tab [...] 7:46 AM EDT Spoke with Neeraj from [facility], she states that this has to go through dedicated team. [phone]. She states she can see that there [...] company will not connect him to a soaking pits supervisor. Advised the patient to call the insurance company again and speak to different person and ask to speak to a soaking pits supervisor as there is nothing else that the [...] Abuse-Deterrent oxyCODONE HCl 20 MG Tab [facility] Spent 1 hour on the phone with [employer] Prior Auth Submitted - marked as Urgent [...] on filedocumented in this encounter Care Teams Metalsmith Helper Relationship Specialty Start Date End Date Riccardo Robledo MD [address] [place] [address] PCP - General Internal Medicine 12/28/19 Olga Ochoa MD [address] [place] [address] Specialist Lung Cancer Wave Guide Assembler 03/07/21 Mina Dominguez PA-C 299 [facility] [address] [place] [address] Specialist Thoracic Surgery 04/29/22 Addison Winslow PA-C 175 [facility] [address] [place] [address] Specialist Neurosurgery 05/02/23 June Denton PA-C 175 [facility] 300 [place] [address] Specialist Neurosurgery 05/02/23 Nichole Otto MD 175 [facility] 300 [place], [place] [address] Surgeon Neurosurgery 05/02/23 documented as of this encounter
--- OUTSIDE RECORDS SUMMARY | 2024-11-29 13:02 | XMS_ITS | Encounter Summary ---
Author Organization [facility] Address [address] [place] [address] Care Team Providers Care Portfolio Lead Name Role Phone Riccardo Robledo MD Primary Care Provider Olga Ochoa MD Unavailable Mina Dominguez PA-C Unavailable Addison Winslow PA-C Unavailable June Denton PA-C Unavailable [phone] Nichole Otto MD Unavailable [phone] Reason for Visit * Reason Onset Date Comments swallowing problems 11/22/2020 Arm Pain 11/22/2020 Encounter Details Date Type Department Care Team Description 11/22/2020 Telephone Adult Medicine - [place] [address] [place], [place] [phone] Riccardo Robledo MD [address] [place], [place] [phone] swallowing problems; Arm Pain Social History Tobacco Use Types Packs/Day [...] have Coronavirus / COVID-19? No / Unsure 11/21/2020 12:54 PM EDT documented as of this encounter Miscellaneous Notes * Telephone Encounter - Hood Rodas - 11/22/2020 12:13 PM EDT Pt states this is fyi for SERENA Romero As he had appt yesterday * Telephone Encounter - Raymundo Stovall LPN - 11/22/2020 12:09 PM EDT Does pt want a call back ? * Telephone Encounter - Hood Rodas - 11/22/2020 11:57 AM EDT Symptoms patient is presenting:pt calling from [facility] Pt states he is having trouble swallowing with arm pain Pt also will be faxing bsr notes given fax of [phone] For ALL patients calling to schedule any [...] to another state outside of [place], [place], [place], [place], [place], [place], [place]? NO o If yes, did you [...] / Plan: [place] / Product Type: MEDICARE [id number] documented in this encounter Plan of Treatment Not on file documented as of this encounter Visit Diagnoses Not on filedocumented in this encounter Care Teams Portfolio Lead Relationship Specialty Start Date End Date Riccardo Robledo MD [address] [place] [address] PCP - General Internal Medicine 12/28/19 Olga Ochoa MD [address] [place] [address] Specialist Lung Cancer Barrel Roller Operator 03/07/21 Mina Dominguez PA-C [address] [phone] Specialist Thoracic Surgery 04/29/22 Addison Winslow PA-C 175 [facility] [address] [place] [address] Specialist Neurosurgery 05/02/23 June Denton PA-C [address] [address] Specialist Neurosurgery 05/02/23 Nichole Otto MD [address] [address] Surgeon Neurosurgery 05/02/23 documented as of this encounter
--- OUTSIDE RECORDS SUMMARY | 2024-11-29 13:02 | XMS_ITS | Encounter Summary ---
Author Organization [facility] Address [address] [place] [address] Care Team Providers Care Grant Coordinator Name Role Phone Riccardo Robledo MD Primary Care Provider Olga Ochoa MD Unavailable Mina Dominguez-C Unavailable [phone] Addison WinslowC Unavailable [phone] June Denton PA-C Unavailable [phone] Nichole Otto MD Unavailable [phone] Encounter Details Date Type Department Care Team Description 01/04/2022 Endoscopy Technican Report Medical Records [address] [place] [address] Wilmar Beal MD Social History Tobacco Use [...] on filedocumented in this encounter Care Teams Grant Coordinator Relationship Specialty Start Date End Date Riccardo Robledo MD [address] [place] [address] PCP - General Internal Medicine 12/28/19 Olga Ochoa MD [address] [place] [address] Specialist Lung Cancer Silhouette Artist 03/07/21 Mina Dominguez PA-C [address] [facility] [address] [place] [address] Specialist Thoracic Surgery 04/29/22 Addison Winslow PA-C 175 [facility] [address] [place] [address] Specialist Neurosurgery 05/02/23 June Denton PA-C 175 [facility] 300 [place] [address] Specialist Neurosurgery 05/02/23 Nichole Otto MD 175 [facility] 300 [place] [address] Surgeon Neurosurgery 05/02/23 documented as of this encounter
--- OUTSIDE RECORDS SUMMARY | 2024-11-29 13:02 | XMS_ITS | Encounter Summary ---
Author Organization [facility] Address [address] [place] [address] Care Team Providers Care Sales Representative Wire Rope Name Role Phone Riccardo Robledo MD Primary Care Provider Olga Ochoa MD Unavailable Mina Dominguez PA-C Unavailable Addison Winsolw PA-C Unavailable [phone] June Denton-Will Unavailable [phone] Nichole Otto MD Unavailable [phone] Reason for Visit * Reason Onset Date Comments Secretary Of Police Feedback 11/03/2020 Neurosurgery Encounter Details Date Type Department Care Team Description 11/03/2020 Telephone Adult Medicine - [place] [address] [place], [place] [phone] Riccardo Robledo MD 230 [place] [address] Secretary Of Police Feedback (Neurosurgery) Social History Tobacco Use Types [...] for patient to see Dr Salomon at [facility]. Dr Salomon reviewed imaging and stated patient had a pristine spine and is not a candidate for surgery. [facility] will be outreaching to patient to cancel appointment. This referral has been closed. Thank you, Gena Raman Referrals Department documented in this encounter Plan of Treatment Not on file documented as of this encounter Visit Diagnoses Not on filedocumented in this encounter Care Teams Sales Representative Wire Rope Relationship Specialty Start Date End Date Riccardo Robledo MD 230 [place] [address] PCP - General Internal Medicine 12/28/19 Olga Ochoa MD 230 [place] [address] Specialist Lung Cancer Conduit Cleaner 03/07/21 Mina Dominguez PA-C [address] [address] Specialist Thoracic Surgery 04/29/22 Addison Winslow PA-C 175 [facility] [address] [place] [address] Specialist Neurosurgery 05/02/23 June Denton PA-C 175 [facility] [address] [place] [address] Specialist Neurosurgery 05/02/23 Nichole Otto MD 175 [facility] [address] [place] [address] Surgeon Neurosurgery 05/02/23 documented as of this encounter
--- OUTSIDE RECORDS SUMMARY | 2024-11-29 13:02 | XMS_ITS | Clinical Summary ---
Author Organization [facility] Address [address] [place] [address] Care Team Providers Care Neuroscientist Name Role Phone Mireya Robledo Primary Care Provide r Unavailable Medications Hospital, Clinic, or Other Facility Administered Medication Ordered Dose Route Frequency Start Date End Date Status lidocaine (XYLOCAINE) 4% (40 mg/mL) topical solution 120 mg 120 mg topical Once 11/20/2023 Active Encounters Date Type Department Care Team Description 11/18/2024 Telephone [facility] Infection Control Department [address] [place] [address] Angel Sal III, MD 11/10/2024 Telephone [facility] Infection Control Department [address] [place] [address] Angel Sal III, MD from Last 3 [...] MEDICARE [facility] Care Teams Neuroscientist Relationship Specialty Start Date End Date Mireya Robledo [address] [place] [address] PCP - General Internal Medicine 11/04/23
--- OUTSIDE RECORDS SUMMARY | 2024-11-29 13:02 | XMS_ITS | Encounter Summary ---
Author Organization [facility] Address [address] [place] [address] Care Team Providers Care Criminology Professor Name Role Phone Riccardo Robledo MD Primary Care Provider [phone] Olga Ochoa MD Unavailable Mina Dominguez PA-C Unavailable Addison Winslow PA-C Unavailable [phone] June Denton PA-C Unavailable Nichole Otto MD Unavailable [phone] Encounter Details Date Type Department Care Team Description 08/10/2021 Telephone Adult Medicine - [address] [address] Logan Romero PA-C [address] [place] [address] Social History Tobacco Use Types Packs/Day Years [...] on filedocumented in this encounter Care Teams Criminology Professor Relationship Specialty Start Date End Date Riccardo Robledo MD [address] [place] [address] PCP - General Internal Medicine 12/28/19 Olga Ochoa MD [address] [place] [address] Specialist Lung Cancer Infrastructure Project Manager 03/07/21 Mina Dominguez PA-C 299 [facility] [address] [place] [address] Specialist Thoracic Surgery 04/29/22 Addison Winslow PA-C 175 [facility] [address] [place] [address] Specialist Neurosurgery 05/02/23 June Denton PA-C 175 [facility] 300 [place] [address] Specialist Neurosurgery 05/02/23 Nichole Otto MD [address] [address] Surgeon Neurosurgery 05/02/23 documented as of this encounter
--- OUTSIDE RECORDS SUMMARY | 2024-11-29 13:02 | XMS_ITS | Encounter Summary ---
Author Organization [facility] Address [address] [place] [address] Care Team Providers Care Curtain Fitter Name Role Phone Riccardo Robledo MD Primary Care Provider Olga Ochoa MD Unavailable Mina Dominguez PA-C Unavailable Addison Winslow PA-C Unavailable June Denton-Will Unavailable Nichole Otto MD Unavailable [phone] Reason for Visit * Reason Onset Date Comments Prior Authorization 07/28/2023 Encounter Details Date Type Department Care Team Description 07/28/2023 Telephone Medicine/Pediatrics - [place] [address] [place], [place] [phone] Riccardo Robledo MD [address] [place] [address] Prior Authorization Social History Tobacco Use Types [...] Telephone Encounter - Pallavi Finley M.A. - 07/31/2023 10:58 AM EDT Prior authorization for the lovaza completed today on [facility] Dx code E78.5 Hyperlipidemia Continuation of therapy . Insurance changed. * Telephone Encounter - Babita Bullkins - 07/28/2023 10:22 AM EDT Prior Authorization for Medication-do not complete and send this encounter unless you have the fax from the pharmacy. New insurance information ?? ID Number [id number] ?? Bin Number [id number] Group Number [id number] ?? PCN Number [id number] Is this a Cover My Meds request: Menan of Medication - omega-3 acid ethyl esters (LOVAZA) 1 g capsule Dose of Medication What is the RX # from the faxed refill? How does patient take this med? What Pharmacy did the fax come from: Pharmacy fax #: [facility] Information from fax: What Prescription Plan does the patient have? BIN/PCN if applicable: Cardholder ID: Person Code: Relationship Code: Help desk phone: documented in this encounter Plan of Treatment Not on file documented as of this encounter Visit Diagnoses Not on filedocumented in this encounter Care Teams Curtain Fitter Relationship Specialty Start Date End Date Riccardo Robledo MD [address] [place] [address] PCP - General Internal Medicine 12/28/19 Olga Ochoa MD [address] [place] [address] Specialist Lung Cancer Social Media Marketing Analyst 03/07/21 Mina Dominguez PA-C 299 [facility] [address] [place] [phone] Specialist Thoracic Surgery 04/29/22 Addison Winslow PA-C 175 [facility] 300 [place] [address] Specialist Neurosurgery 05/02/23 June Denton PA-C [address] [address] Specialist Neurosurgery 05/02/23 Nichole Otto MD [address] [address] Surgeon Neurosurgery 05/02/23 documented as of this encounter
--- OUTSIDE RECORDS SUMMARY | 2024-11-29 13:02 | XMS_ITS | Encounter Summary ---
Author Organization [facility] Address [address] [place] [address] Care Team Providers Care Cereal Miller Name Role Phone Riccardo Robledo MD Primary Care Provider Olga Ochoa MD Unavailable Mina Dominguez PA-C Unavailable [phone] Addison Winslow PA-C Unavailable June Denton-Will Unavailable [phone] Nichole Otto MD Unavailable [phone] Reason for Visit * Reason Onset Date Comments er follow up 09/07/2020 [facility] 09/07/20 Encounter Details Date Type Department Care Team Description 09/07/2020 Telephone Adult Medicine - [place] [address] [place], [place] [phone] Riccardo Robledo MD [address] [place], [place] [phone] er follow up ([facility] 09/07/20) Social History Tobacco Use Types [...] [facility] Date of visit: 09/07/20 Was this only [...] on filedocumented in this encounter Care Teams Cereal Miller Relationship Specialty Start Date End Date Riccardo Robledo MD [address] [place] [address] PCP - General Internal Medicine 12/28/19 Olga Ochoa MD [address] [place] [address] Specialist Lung Cancer Ged Tutor 03/07/21 Mina Dominguez PA-C 299 [facility] [address] [place] [address] Specialist Thoracic Surgery 04/29/22 Addison Winslow PA-C 175 [facility] [address] [place] [address] Specialist Neurosurgery 05/02/23 June Denton PA-C 175 [facility] [address] [place] [address] Specialist Neurosurgery 05/02/23 Nichole Otto MD 175 [facility] [address] [place] [address] Surgeon Neurosurgery 05/02/23 documented as of this encounter
--- OUTSIDE RECORDS SUMMARY | 2024-11-29 13:02 | XMS_ITS | Encounter Summary ---
Author Organization [facility] Address [address] [place] [address] Care Team Providers Care Grain Grader Name Role Phone Riccardo Robledo MD Primary Care Provider [phone] Olga Ochoa MD Unavailable Mina Dominguez PA-C Unavailable Addison Winslow-C Unavailable June Denton-Will Unavailable Nichole Otto MD Unavailable [phone] Encounter Details Date Type Department Care Team Description 12/07/2021 Refill Adult Medicine - [place] [address] [place], [place] [phone] Riccardo Robledo MD [address] [place], [place] [phone] Social History Tobacco Use Types Packs/Day Years [...] on filedocumented in this encounter Care Teams Grain Grader Relationship Specialty Start Date End Date Riccardo Robledo MD [address] [place] [address] PCP - General Internal Medicine 12/28/19 Olga Ochoa MD [address] [place] [address] Specialist Lung Cancer Farm Management Supervisor 03/07/21 Mina Dominguez PA-C 299 [facility] [address] [place] [address] Specialist Thoracic Surgery 04/29/22 Addison Winslow PA-C 175 [facility] [address] [place] [address] Specialist Neurosurgery 05/02/23 June Denton PA-C 175 [facility] [address] [place] [address] Specialist Neurosurgery 05/02/23 Nichole Otto MD [address] [address] Surgeon Neurosurgery 05/02/23 documented as of this encounter
--- OUTSIDE RECORDS SUMMARY | 2024-11-29 13:03 | XMS_ITS | Encounter Summary ---
Author Organization [facility] Address [address] [place] [address] Care Team Providers Care Fiberglass Dowel Drawing Operator Name Role Phone Riccardo Robledo MD Primary Care Provider [phone] Olga Ochoa MD Unavailable Mina Dominguez-C Unavailable Addison Winslow-Will Unavailable [phone] June Denton PA-C Unavailable Nichole Otto MD Unavailable [phone] Encounter Details Date Type Department Care Team Description 10/09/2023 Pt. Non Urgent Medic al Question Adult Medicine - [place] [address] [place] [address] Riccardo Robledo MD [address] [place] [address] Social History Tobacco Use Types Packs/Day Years [...] today this is Jv call me at [phone] documented in this encounter Plan of Treatment Not on file documented as of this encounter Visit Diagnoses Not on filedocumented in this encounter Care Teams Fiberglass Dowel Drawing Operator Relationship Specialty Start Date End Date Riccardo Robledo MD [address] [place] [address] PCP - General Internal Medicine 12/28/19 Olga Ochoa MD [address] [place] [address] Specialist Lung Cancer Industrial Training Specialist 03/07/21 Mina Dominguez PA-C [address] [phone] Specialist Thoracic Surgery 04/29/22 Addison Winslow PA-C 175 [facility] [address] [place] [address] Specialist Neurosurgery 05/02/23 June Denton PA-C [address] [address] Specialist Neurosurgery 05/02/23 Nichole Otto MD [address] [address] Surgeon Neurosurgery 05/02/23 documented as of this encounter
--- OUTSIDE RECORDS SUMMARY | 2024-11-29 13:03 | XMS_ITS | Encounter Summary ---
Author Organization [facility] Address [address] [place] [address] Care Team Providers Care Dust Control Engineer Name Role Phone Riccardo Robledo MD Primary Care Provider [phone] Olga Ochoa MD Unavailable Mina Dominguez PA-C Unavailable [phone] Addison Winslow PA-C Unavailable June Denton-Will Unavailable Nichole Otto MD Unavailable [phone] Encounter Details Date Type Department Care Team Description 10/07/2023 Telephone [facility] 175 [facility] [address] [place] [address] Akin Delacruz MD [address] [facility] [address] [place], [place] [phone] Social History Tobacco Use Types Packs/Day Years [...] encounter Miscellaneous Notes * Telephone Encounter - Rose Marie Whalen - 10/07/2023 10:32 AM EDT Jv called in stating he would like a MRI ordered of his left shoulder he believes he re-injured it, he did speak with is PCP was told he would have to wait for a appt to see her and also that he should see his orthopedic surgeon as well. Jv did have a CT scan but was told a CT scan doesn't show all injuries. Please call Jv when MRI is ordered documented in this encounter Plan of Treatment Not on file documented as of this encounter Visit Diagnoses Not on filedocumented in this encounter Care Teams Dust Control Engineer Relationship Specialty Start Date End Date Riccardo Robledo MD [address] [place] [address] PCP - General Internal Medicine 12/28/19 Olga Ochoa MD [address] [place] [address] Specialist Lung Cancer Etcher Apprentice 03/07/21 Mina Dominguez PA-C 299 [facility] [address] [place] [address] Specialist Thoracic Surgery 04/29/22 Addison Winslow PA-C 175 [facility] [address] [place] [address] Specialist Neurosurgery 05/02/23 June Denton PA-C [address] [facility] [address] [place] [address] Specialist Neurosurgery 05/02/23 Nichole Otto MD [address] [address] Surgeon Neurosurgery 05/02/23 documented as of this encounter
--- OUTSIDE RECORDS SUMMARY | 2024-11-29 13:03 | XMS_ITS | Encounter Summary ---
Author Organization [facility] Address [address] [place] [address] Care Team Providers Care Seo Specialist Name Role Phone Riccardo Robledo MD Primary Care Provider Olga Ochoa MD Unavailable Mina Dominguez PA-C Unavailable Addison Winslow PA-C Unavailable June Denton-C Unavailable [phone] Nichole Otto MD Unavailable [phone] Reason for Visit * Reason Onset Date Comments Provider Call Back 07/20/2020 Encounter Details Date Type Department Care Team Description 07/20/2020 Telephone Adult Medicine - [place] [address] [place], [place] [phone] Riccardo Robledo MD [address] [place] [address] Provider Call Back Social History Tobacco Use [...] * Telephone Encounter - Rain Kumari - 07/20/2020 10:12 AM EDT Caller requesting call back from provider:Mireya Robledo Is the caller the patient? YES If caller is not the patient, what is the callers name? N/A Callers relationship to patient? N/A If person calling is not the patient themselves, is there a verbal release in FYI or permanent comments for this person: Reason for call back: Patient is having surgery tomorrow and wants to know if Mireya LennonCecileSky would reach out to his surgeon to tell them to keep patient overnight for observation after surgery. Caller offered to speak with the nurse for assistance: YES Response: Patient offered to speak with nurse for assistance and patient agreed. Message forwarded to nurse. documented in this encounter Plan of Treatment Not on file documented as of this encounter Visit Diagnoses Not on filedocumented in this encounter Care Teams Seo Specialist Relationship Specialty Start Date End Date Riccardo Robledo MD [address] [place] [address] PCP - General Internal Medicine 12/28/19 Olga Ochoa MD [address] [place] [address] Specialist Lung Cancer Fringe Weaver 03/07/21 Mina Dominguez PA-C 299 [facility] [address] [place] [address] Specialist Thoracic Surgery 04/29/22 Addison Winslow PA-C 175 [facility] [address] [place] [address] Specialist Neurosurgery 05/02/23 June Denton PA-C 175 [facility] [address] [place] [address] Specialist Neurosurgery 05/02/23 Nichole Otto MD [address] [place] [address] Surgeon Neurosurgery 05/02/23 documented as of this encounter
--- OUTSIDE RECORDS SUMMARY | 2024-11-29 13:03 | XMS_ITS | Encounter Summary ---
Author Organization [facility] Address [address] [place] [address] Care Team Providers Care Optomechanical Engineer Name Role Phone Mireya Robledo MD Primary Care Prov ider Reason for Visit * Reason Onset Date Comments Study Results 11/17/2024 Echocardiogram Encounter Details Date Type Department Care Team ([facility] Contact Info) Description 11/17/2024 Telephone Adult [address] [address] Ree Beatty [place] Social History Tobacco Use [...] Upcoming Encounters Date Type Department Care Team ([facility] Contact Info) Description 12/09/2024 9:30 AM EDT Office Visit Adult Medicine - [place] [address] [place] [phone] Logan Romero PA [address] [place] [address] 12/15/2024 10:00 AM EDT Office Visit Orthopedic Surgery - [place] [address] 175 [facility] [address] [place] [address] Mina Eckert, DPM [address] [phone] 04/07/2025 9:45 AM EST Office Visit Bariatric Surgery - [place] 175 [facility] [address] [place] [phone] Sahara Villela MD [address] [place] [address] documented as of this encounter Visit Diagnoses Not on filedocumented in this encounter Care Teams Optomechanical Engineer Relationship Specialty Start Date End Date Mireya Robledo MD [address] [place] [address] PCP - General Internal Medicine 02/02/24 documented as of this encounter
--- OUTSIDE RECORDS SUMMARY | 2024-11-29 13:03 | XMS_ITS | Encounter Summary ---
Author Organization [facility] Address [address] [place] [address] Care Team Providers Care Power And Recovery Supervisor Name Role Phone Riccardo Robledo MD Primary Care Provider [phone] Olga Ochoa MD Unavailable Mina Dominguez-C Unavailable [phone] Addison Winslow-C Unavailable [phone] June Denton PA-C Unavailable [phone] Nichole Otto MD Unavailable [phone] Encounter Details Date Type Department Care Team Description 08/29/2023 Pt. Non Urgent Medic al Question Adult Medicine - [place] [address] [place] [address] Riccardo Robledo MD [address] [place] [address] Social History Tobacco Use Types Packs/Day Years [...] Encounter - Mireya Figueroa M.A. - 08/29/2023 3:43 PM EDTFrom: vJ Monroy To: Will Robledo Sent: 08/29/2023 3:42 PM EDT Subject: Medication DR Swanson thank you for doing the prior off the insurance approve it thank you again tell Shahid thank you for what she did documented in this encounter Plan of Treatment Not on file documented as of this encounter Visit Diagnoses Not on filedocumented in this encounter Care Teams Power And Recovery Supervisor Relationship Specialty Start Date End Date Riccardo Robledo MD [address] [place] [address] PCP - General Internal Medicine 12/28/19 Olga Ochoa MD 230 [place] [address] Specialist Lung Cancer Saturator Tender 03/07/21 Mina Dominguez PA-C [address] [phone] Specialist Thoracic Surgery 04/29/22 Addison Winslow PA-C 175 [facility] [address] [place] [address] Specialist Neurosurgery 05/02/23 June Denton PA-C [address] [address] Specialist Neurosurgery 05/02/23 Nichole Otto MD [address] [address] Surgeon Neurosurgery 05/02/23 documented as of this encounter
--- OUTSIDE RECORDS SUMMARY | 2024-11-29 13:03 | XMS_ITS | Encounter Summary ---
Author Organization [facility] Address [address] [place] [address] Care Team Providers Care Associate Entertainment Editor Name Role Phone Riccardo Robledo MD Primary Care Provider [phone] Olga Ochoa MD Unavailable Mina Dominguez PA-C Unavailable Addison Winslow PA-C Unavailable [phone] June Denton PA-C Unavailable Nichole Otto MD Unavailable [phone] Encounter Details Date Type Department Care Team Description 11/18/2022 Pt. Non Urgent Medic al Question Adult Medicine - [address] [address] Logan Romero PA-C [address] [place] [address] Social History Tobacco Use Types Packs/Day Years [...] filedocumented in this encounter Care Teams Associate Entertainment Editor Relationship Specialty Start Date End Date Riccardo Robledo MD [address] [place] [address] PCP - General Internal Medicine 12/28/19 Olga Ochoa MD [address] [place] [address] Specialist Lung Cancer Gardening Instructor 03/07/21 Mina Dominguez PA-C 299 [facility] [address] [place] [address] Specialist Thoracic Surgery 04/29/22 Addison Winslow PA-C 175 [facility] [address] [place] [address] Specialist Neurosurgery 05/02/23 June Denton PA-C 175 [facility] 300 [place] [address] Specialist Neurosurgery 05/02/23 Nichole Otto MD [address] [place] [address] Surgeon Neurosurgery 05/02/23 documented as of this encounter
--- OUTSIDE RECORDS SUMMARY | 2024-11-29 13:03 | XMS_ITS | Encounter Summary ---
Author Organization [facility] Address [address] [place] [address] Care Team Providers Care Net Developer Programmer Name Role Phone Riccardo Robledo MD Primary Care Provider Olga Ochoa MD Unavailable Mina Dominguez PA-C Unavailable [phone] Addison Winslow PA-C Unavailable June Denton PA-C Unavailable [phone] Nichole Otto MD Unavailable [phone] Encounter Details Date Type Department Care Team Description 10/31/2022 Orders Only Medical Records [address] [place] [address] Abstract, Provider Social History Tobacco Use Types [...] Associated Diagnosis Comments OUTSIDE PLAIN FILM Routine 10/29/2022 OUTSIDE LAB Routine 10/29/2022 documented in this encounter Results * OUTSIDE PLAIN FILM (10/29/2022) Provider Abstract RADIOLOGY * OUTSIDE LAB (10/29/2022) Provider Abstract LAB documented in this encounter Visit Diagnoses Not on filedocumented in this encounter Care Teams Net Developer Programmer Relationship Specialty Start Date End Date Riccardo Robledo MD [address] [place] [address] PCP - General Internal Medicine 12/28/19 Olga Ochoa MD [address] [place] [address] Specialist Lung Cancer Double End Trimmer 03/07/21 Mina Dominguez PA-C 299 [facility] 410 [place] [address] Specialist Thoracic Surgery 04/29/22 Addison Winslow PA-C 175 [facility] [address] [place] [address] Specialist Neurosurgery 05/02/23 June Denton PA-C 175 [facility] [address] [place] [address] Specialist Neurosurgery 05/02/23 Nichole Otto MD 175 [facility] [address] [place] [address] Surgeon Neurosurgery 05/02/23 documented as of this encounter
--- OUTSIDE RECORDS SUMMARY | 2024-11-29 13:03 | XMS_ITS | Encounter Summary ---
Author Organization [facility] Address [address] [place] [address] Care Team Providers Care Technology Recruiter Name Role Phone Riccardo Robledo MD Primary Care Provider Olga Ochoa MD Unavailable Mina Dominguez PA-C Unavailable [phone] Addison Winslow PA-C Unavailable June Denton-Will Unavailable Nichole Otto MD Unavailable [phone] Reason for Visit * Reason Onset Date Comments er follow up 10/11/2022 Booked for 11/05 Encounter Details Date Type Department Care Team Description 10/11/2022 Telephone Adult Medicine - [place] [address] [place], [place] [phone] Riccardo Robledo MD [address] [place] [address] er follow up (Booked for 11/05) Social [...] [facility] patient [facility] Date of visit: 10/10/22 Was this [...] on filedocumented in this encounter Care Teams Technology Recruiter Relationship Specialty Start Date End Date Riccardo Robledo, [address] [place] [address] PCP - General Internal Medicine 12/28/19 Olga Ochoa MD [address] [place] [address] Specialist Lung Cancer Cash Grain Grower 03/07/21 Mina Dominguez PA-C 299 [facility] [address] [place] [address] Specialist Thoracic Surgery 04/29/22 Addison Winslow PA-C 175 [facility] [address] [place] [address] Specialist Neurosurgery 05/02/23 June Denton PA-C 175 [facility] 300 [place] [address] Specialist Neurosurgery 05/02/23 Nichole Otto MD 175 [facility] [address] [place] [address] Surgeon Neurosurgery 05/02/23 documented as of this encounter
--- OUTSIDE RECORDS SUMMARY | 2024-11-29 13:03 | XMS_ITS | Encounter Summary ---
Author Organization [facility] Address [address] [place] [address] Care Team Providers Care Polysomnography Tech Name Role Phone Riccardo Robledo MD Primary Care Provider [phone] Olga Ochoa MD Unavailable Mina Dominguez-C Unavailable [phone] Addison WinslowC Unavailable June Denton PA-C Unavailable Nichole Otto MD Unavailable [phone] Encounter Details Date Type Department Care Team Description 10/16/2023 [facility] Medical Records [address] [place] [address] [facility] Social History Tobacco Use Types Packs/Day Years [...] on filedocumented in this encounter Care Teams Polysomnography Tech Relationship Specialty Start Date End Date Riccardo Robledo, [address] [place] [address] PCP - General Internal Medicine 12/28/19 Olga Ochoa MD [address] [place] [address] Specialist Lung Cancer Rn Registry 03/07/21 Mina Dominguez PA-C 299 [facility] 410 [place] [address] Specialist Thoracic Surgery 04/29/22 Addison Winslow PA-C 175 [facility] [address] [place] [address] Specialist Neurosurgery 05/02/23 June Denton PA-C 175 [facility] 300 [place] [address] Specialist Neurosurgery 05/02/23 Nichole Otto MD 175 [facility] 300 [place] [address] Surgeon Neurosurgery 05/02/23 documented as of this encounter
--- OUTSIDE RECORDS SUMMARY | 2024-11-29 13:03 | XMS_ITS | Encounter Summary ---
Author Organization [facility] Address [address] [place] [address] Care Team Providers Care Marketing Developer Name Role Phone Riccardo Robledo MD Primary Care Provider Olga Ochoa MD Unavailable Mina Dominguez PA-C Unavailable [phone] Addison Winslow PA-C Unavailable June Denton-C Unavailable Nichole Otto MD Unavailable [phone] Reason for Visit * Reason Onset Date Comments er follow up 12/10/2022 Encounter Details Date Type Department Care Team Description 12/10/2022 Telephone Adult Medicine - [place] [address] [place], [place] [phone] Riccardo Robledo MD [address] [place] [address] er follow up Social History Tobacco Use [...] [facility] Date of visit: 12/09/22 Was this only [...] on filedocumented in this encounter Care Teams Marketing Developer Relationship Specialty Start Date End Date Riccardo Robledo MD [address] [place] [address] PCP - General Internal Medicine 12/28/19 Olga Ochoa MD [address] [place] [address] Specialist Lung Cancer Order Checker Packer Processer 03/07/21 Mina Dominguez PA-C [address] [phone] Specialist Thoracic Surgery 04/29/22 Addison Winslow PA-C 175 [facility] [address] [place] [address] Specialist Neurosurgery 05/02/23 June Denton PA-C [address] [address] Specialist Neurosurgery 05/02/23 Nichole Otto MD 175 [facility] 300 [place] [address] Surgeon Neurosurgery 05/02/23 documented as of this encounter
--- OUTSIDE RECORDS SUMMARY | 2024-11-29 13:03 | XMS_ITS | Encounter Summary ---
Author Organization [facility] Address [address] [place] [address] Care Team Providers Care Tv Production Assistant Name Role Phone Riccardo Robledo MD Primary Care Provider [phone] Olga Ochoa MD Unavailable Mina Dominguez PA-C Unavailable Addison Winslow PA-C Unavailable June Denton PA-C Unavailable Nichole Otto MD Unavailable [phone] Encounter Details Date Type Department Care Team Description 09/03/2023 Refill Adult Medicine - [address] [address] Logan Romero PA-C [address] [place] [address] Social History Tobacco Use Types Packs/Day Years [...] on filedocumented in this encounter Care Teams Tv Production Assistant Relationship Specialty Start Date End Date Riccardo Robledo MD [address] [place] [address] PCP - General Internal Medicine 12/28/19 Olga Ochoa MD [address] [place] [address] Specialist Lung Cancer Table Cover Folder 03/07/21 Mina Dominguez PA-C 299 [facility] [address] [place] [phone] Specialist Thoracic Surgery 04/29/22 Addison Winslow PA-C 175 [facility] [address] [place] [address] Specialist Neurosurgery 05/02/23 June Denton PA-C 175 [facility] [address] [place] [address] Specialist Neurosurgery 05/02/23 Nichole Otto MD 175 [facility] 300 [place] [address] Surgeon Neurosurgery 05/02/23 documented as of this encounter
--- OUTSIDE RECORDS SUMMARY | 2024-11-29 13:03 | XMS_ITS | Encounter Summary ---
Author Organization [facility] Address [address] [place] [address] Care Team Providers Care Double Needle Operator Lockstitch Name Role Phone Riccardo Robledo MD Primary Care Provider Olga Ochoa MD Unavailable Mina Dominguez PA-C Unavailable Addison Winslow PA-C Unavailable June Denton-Will Unavailable [phone] Nichole Otto MD Unavailable [phone] Reason for Visit * Reason Onset Date Comments Medication 11/14/2023 Encounter Details Date Type Department Care Team Description 11/14/2023 Telephone Adult Medicine - [place] [address] [place], [place] [phone] Riccardo Robledo MD 230 [place], [place] [phone] Medication Social History Tobacco Use Types Packs/Day [...] encounter Miscellaneous Notes * Telephone Encounter - Caterina Hoover - 11/14/2023 8:46 AM EDT Patient called to inform the Dr that he was approved for Semaglutide-Weight Management (Wegovy) 0.25 MG/0.5ML Solution Auto-injector. His weight loss Dr Eleuterio was able to get it approved for him. Patient had his first dose today.---FYI documented in this encounter Plan of Treatment Not on file documented as of this encounter Visit Diagnoses Not on filedocumented in this encounter Care Teams Double Needle Operator Lockstitch Relationship Specialty Start Date End Date Riccardo Robledo MD 230 [place] [address] PCP - General Internal Medicine 12/28/19 Olga Ohcoa MD 230 [place] [address] Specialist Lung Cancer Pocket And Pulley Machine Operator 03/07/21 Mina Dominguez PA-C 299 [facility] 410 [place] [address] Specialist Thoracic Surgery 04/29/22 Addison Winslow PA-C 175 [facility] [address] [place] [address] Specialist Neurosurgery 05/02/23 June Denton PA-C 175 [facility] [address] [place] [address] Specialist Neurosurgery 05/02/23 Nichole Otto MD 175 [facility] 300 [place] [address] Surgeon Neurosurgery 05/02/23 documented as of this encounter
--- OUTSIDE RECORDS SUMMARY | 2024-11-29 13:03 | XMS_ITS | Encounter Summary ---
Author Organization [facility] Address [address] [place] [address] Care Team Providers Care Police Specialist Name Role Phone Riccardo Robledo MD Primary Care Provider [phone] Olga Ochoa MD Unavailable Mina Dominguez PA-C Unavailable Addison Winslow PA-C Unavailable June Denton PA-C Unavailable Nichole Otto MD Unavailable [phone] Encounter Details Date Type Department Care Team Description 10/20/2023 Telephone Adult Medicine - [address] [address] Logan Romero PA-C [address] [place] [address] Social History Tobacco Use Types Packs/Day Years [...] Telephone Encounter - Kenzie Beckett M.A. - 10/20/2023 11:05 AM EDT Oh good thank you!~ * Telephone Encounter - Kenzie Beckett M.A. - 10/20/2023 9:35 AM EDT Pt is a 30 min pt please schedule appropriately in a 30 min slot. Thank you documented in this encounter Plan of Treatment Not on file documented as of this encounter Visit Diagnoses Not on filedocumented in this encounter Care Teams Police Specialist Relationship Specialty Start Date End Date Riccardo Robledo MD [address] [place] [address] PCP - General Internal Medicine 12/28/19 Olga Ochoa MD [address] [place] [address] Specialist Lung Cancer Railroad Carman 03/07/21 Mina Dominguez PA-C 299 [facility] 410 [place] [address] Specialist Thoracic Surgery 04/29/22 Addison Winslow PA-C 175 [facility] [address] [place] [address] Specialist Neurosurgery 05/02/23 June Denton PA-C 175 [facility] 300 [place] [address] Specialist Neurosurgery 05/02/23 Nichole Otto MD 175 [facility] [address] [place] [address] Surgeon Neurosurgery 05/02/23 documented as of this encounter
--- OUTSIDE RECORDS SUMMARY | 2024-11-29 13:03 | XMS_ITS | Encounter Summary ---
Author Organization [facility] Address [address] [place] [address] Care Team Providers Care Engraver Letter Name Role Phone Riccardo Robledo MD Primary Care Provider Olga Ochoa MD Unavailable Mina Dominguez PA-C Unavailable [phone] Addison Winslow PA-C Unavailable June Denton-Will Unavailable Nichole Otto MD Unavailable [phone] Reason for Visit * Reason Onset Date Comments Prior Authorization 08/29/2023 Encounter Details Date Type Department Care Team Description 08/29/2023 Telephone Adult Medicine - [place] [address] [place], [place] [phone] Riccardo Robledo MD [address] [place] [address] Prior Authorization Social History Tobacco Use Types [...] Telephone Encounter - Brandy Phillips M.A. - 08/29/2023 3:04 PM EDT Called [facility] and answered criteria questions Approved Exp 08/28/24 Case id [id number] Brandy Murillo Auth Dep Ext [id number] * Telephone Encounter - Brandy Phillips M.A. - 08/29/2023 2:54 PM EDT Auth resent with new insurance info today Brandy Murillo Auth Dep Ext [id number] * Telephone Encounter - Brandy Phillips M.A. - 08/29/2023 2:37 PM EDT This auth was already denied on 07/25/23 Criteria change and per insurance: we do not show that you have tried at least 2 covered drugs that can treat your condition. Other covered drug(s) is/are: hysingla er tablet 24hr 20mg; 30mg; 40mg; 60mg; 80mg; 100mg; 120mg (prior authorization required), fentanyl patch 25 mcg/hr; 50 mcg/hr; 75 mcg/hr; 100 mcg/hr (prior authorizationrequired), morphine sulfate er tablet 15mg; 30mg; 60mg; 100mg; 200mg (prior authorization required) Brandy Murillo Auth Dep Ext [id number] * Telephone Encounter - Brandy Phillips M.A. - 08/29/2023 2:33 PM EDT s * Telephone Encounter - Carole Maria - 08/29/2023 2:24 PM EDT Prior Authorization for Medication-do not complete and send this encounter unless you have the fax from the pharmacy. Is this a Cover My Meds request: [place] of Medication oxycodone Dose of Medication 20 12 hr extended release What is the RX # from the faxed refill? How does patient take this med? Takes one tablet every 12 hrs What Pharmacy did the fax come from: Pharmacy fax #: [facility] Information from fax: What Prescription Plan does the patient have? BIN/PCN if applicable: Cardholder ID:[id number] Person Code: Relationship Code: Help desk phone: [phone] documented in this encounter Plan of Treatment Not on file documented as of this encounter Visit Diagnoses Not on filedocumented in this encounter Care Teams Engraver Letter Relationship Specialty Start Date End Date Riccardo Robledo MD [address] [place] [address] PCP - General Internal Medicine 12/28/19 Olga Ochoa MD [address] [place] [address] Specialist Lung Cancer Natural Resources Specialist 03/07/21 Mina Dominguez PA-C [address] [address] Specialist Thoracic Surgery 04/29/22 Addison Winslow PA-C 175 [facility] [address] [place] [address] Specialist Neurosurgery 05/02/23 June Denton PA-C 175 [facility] 300 [place] [address] Specialist Neurosurgery 05/02/23 Nichole Otto MD [address] [address] Surgeon Neurosurgery 05/02/23 documented as of this encounter
--- OUTSIDE RECORDS SUMMARY | 2024-11-29 13:03 | XMS_ITS | Encounter Summary ---
Author Organization [facility] Address [address] [place] [address] Care Team Providers Care Refrigerated Company Driver Name Role Phone Riccardo Robledo MD Primary Care Provider Olga Ochoa MD Unavailable Mina Dominguez PA-C Unavailable [phone] Addison Winslow PA-C Unavailable June Denton-C Unavailable [phone] Nichole Otto MD Unavailable [phone] Reason for Visit * Reason Onset Date Comments Provider Call Back 11/20/2022 Encounter Details Date Type Department Care Team Description 11/20/2022 Telephone Adult Medicine - [place] [address] [place], [place] [phone] Riccardo Robledo MD [address] [place] [address] Provider Call Back Social History Tobacco Use [...] esophagus Please have clinical call the pt [phone] * Telephone Encounter - Ree Beatty M.A. [...] a call back to discuss this at [phone] Pt states he had another EKG done on 11/20 urgent care in [place] EKG was normal * Telephone Encounter - Katia aSlinas - 11/20/2022 11:17 AM EDT Pt came in the office to drop off 2 EKG readings and was wondering why they are different. He wouldlike to talk to the provider for more explanation. EKG and reports are in the provider's folder behind the director of front office documented in this encounter Plan of Treatment Not on file documented as of this encounter Visit Diagnoses Not on filedocumented in this encounter Care Teams Refrigerated Company Driver Relationship Specialty Start Date End Date Riccardo Robledo MD [address] [place] [address] PCP - General Internal Medicine 12/28/19 Olga Ochoa MD 230 [place] [address] Specialist Lung Cancer Histopathologist 03/07/21 Mina Dominguez PA-C 299 [facility] 410 [place] [address] Specialist Thoracic Surgery 04/29/22 Addison Winslow PA-C 175 [facility] [address] [place] [address] Specialist Neurosurgery 05/02/23 June Denton PA-C [address] [address] Specialist Neurosurgery 05/02/23 Nichole Otto MD [address] [address] Surgeon Neurosurgery 05/02/23 documented as of this encounter
--- OUTSIDE RECORDS SUMMARY | 2024-11-29 13:03 | XMS_ITS | Encounter Summary ---
Author Organization [facility] Address [address] [place] [address] Care Team Providers Care Interchange Agent Name Role Phone Riccardo Robledo MD Primary Care Provider [phone] Olga Ochoa MD Unavailable Mina Dominguez-C Unavailable Addison Winslow-C Unavailable [phone] June Denton-Will Unavailable [phone] Nichole Otto MD Unavailable [phone] Encounter Details Date Type Department Care Team Description 10/13/2023 Pt. Non Urgent Medic al Question Adult Medicine - [place] [address] [place] [address] Riccardo Robledo MD [address] [place] [address] Social History Tobacco Use Types Packs/Day Years [...] on filedocumented in this encounter Care Teams Interchange Agent Relationship Specialty Start Date End Date Riccardo Robledo MD [address] [place] [address] PCP - General Internal Medicine 12/28/19 Olga Ochoa MD 230 [place] [address] Specialist Lung Cancer Shoe Salesman 03/07/21 Mina Dominguez PA-C 299 [facility] [address] [place] [address] Specialist Thoracic Surgery 04/29/22 Addison Winslow PA-C 175 [facility] [address] [place] [address] Specialist Neurosurgery 05/02/23 June Denton PA-C [address] [address] Specialist Neurosurgery 05/02/23 Nichole Otto MD 175 [facility] [address] [place] [address] Surgeon Neurosurgery 05/02/23 documented as of this encounter
--- OUTSIDE RECORDS SUMMARY | 2024-11-29 13:03 | XMS_ITS | Encounter Summary ---
Author Organization [facility] Address [address] [place] [address] Care Team Providers Care Retirement Plan Counselor Name Role Phone Mireya Robledo MD Primary Care Prov ider Reason for Visit * Reason Onset Date Comments Provider call 11/18/2024 Encounter Details Date Type Department Care Team ([facility] st Contact Info) Description 11/18/2024 Telephone Adult Medicine [facility] [address] [place] [phone] Mireya Robledo MD 230 [place] [address] Social History Tobacco Use Types Packs/Day Years [...] patient letter). Patient received a letter from [facility] regarding his procedure he had done on 11/20/2023, esophageal manometry. The probe that was used did not under go the proper sterilization recommended by the director transportation. Patient states he is starting to get the feeling back in his throat/esophagus again and wants to talk to Dr. Lennon. Patient states that he is receiving calls from [facility], however won't return them. Letter is uploaded into patients chart for PCP to review. documented in this encounter Plan of Treatment Upcoming Encounters Date Type Department Care Team (Late st Contact Info) Description 12/09/2024 9:30 AM EDT Office Visit Adult Medicine [facility] [address] [place] [phone] Logan Romero PA 230 [place] [address] 12/15/2024 10:00 AM EDT Office Visit Orthopedic Surgery [facility] 250 175 [facility] 250 [place] [address] Mina Eckert DPM 175 [facility] 250 [place] [phone] 04/07/2025 9:45 AM EST Office Visit Bariatric Surgery [facility] 175 [facility] [address] [place] [address] Sahara Villela MD 230 [place] [phone] documented as of this encounter Visit Diagnoses Not on filedocumented in this encounter Care Teams Retirement Plan Counselor Relationship Specialty Start Date End Date Mireya Robledo MD [address] [place] [address] PCP - General Internal Medicine 02/02/24 documented as of this encounter
--- OUTSIDE RECORDS SUMMARY | 2024-11-29 13:03 | XMS_ITS | Encounter Summary ---
Author Organization [facility] Address [address] [place] [address] Care Team Providers Care Optical Glass Wet Inspector Name Role Phone Riccardo Robledo MD Primary Care Provider [phone] Olga Ochoa MD Unavailable Mina Dominguez PA-C Unavailable [phone] Addison Winslow PA-C Unavailable [phone] June Denton-Will Unavailable Nichole Otto MD Unavailable [phone] Encounter Details Date Type Department Care Team Description 10/31/2022 Onyx Chip Terrazzo Worker Report Medical Records [address] [place] [address] Johnathan Cerda MD Social History Tobacco Use [...] filedocumented in this encounter Care Teams Optical Glass Wet Inspector Relationship Specialty Start Date End Date Riccardo Robledo, [address] [place] [address] PCP - General Internal Medicine 12/28/19 Olga Ochoa MD [address] [place] [address] Specialist Lung Cancer Integrity Consultant 03/07/21 Mina Dominguez PA-C 299 [facility] [address] [place] [address] Specialist Thoracic Surgery 04/29/22 Addison Winslow PA-C 175 [facility] [address] [place] [address] Specialist Neurosurgery 05/02/23 June Denton PA-C 175 [facility] 300 [place] [address] Specialist Neurosurgery 05/02/23 Nichole Otto MD 175 [facility] 300 [place] [address] Surgeon Neurosurgery 05/02/23 documented as of this encounter
--- OUTSIDE RECORDS SUMMARY | 2024-11-29 13:03 | XMS_ITS | Clinical Summary ---
Author Organization [facility] Address [address] [place] [address] Care Team Providers Care Mechanic Insulator Name Role Phone Mireya Robledo MD Primary [...] f 2) 07/16/2017 COVID-19 Vaccine (2 - 2024-2 6 season) 2024 04/19/2020 Influenza Vaccine (#1) 2024 0, 02/02/2008 Pneumococcal Vaccine Aged Out No long er eligible based on patient's age to complete this topic RSV Ped < 20 months Aged Out No longe r eligible based on patient's age to complete this topic Care Teams Mechanic Insulator Relationship Specialty Start Date End Date Mireya Robledo MD PCP - General Internal Medicine 05/26/20
--- OUTSIDE RECORDS SUMMARY | 2024-11-29 13:03 | XMS_ITS | Encounter Summary ---
Author Organization [facility] Address [address] [place] [address] Care Team Providers Care Erp Developer Name Role Phone Riccardo Robledo MD Primary Care Provider [phone] Olga Ochoa MD Unavailable Mina Dominguez-C Unavailable [phone] Addison Winslow-Will Unavailable [phone] June Denton PA-C Unavailable [phone] Nichole Otto MD Unavailable [phone] Encounter Details Date Type Department Care Team Description 10/28/2023 Pt. Non Urgent Medic al Question Adult Medicine - [place] [address] [place] [address] Riccardo Robledo MD [address] [place] [address] Social History Tobacco Use Types Packs/Day Years [...] on filedocumented in this encounter Care Teams Erp Developer Relationship Specialty Start Date End Date Riccardo Robledo MD [address] [place] [address] PCP - General Internal Medicine 12/28/19 Olga Ochoa MD [address] [place] [address] Specialist Lung Cancer Director Reactor Projects 03/07/21 Mina Dominguez PA-C 299 [facility] [address] [place] [address] Specialist Thoracic Surgery 04/29/22 Addison Winslow PA-C 175 [facility] [address] [place] [address] Specialist Neurosurgery 05/02/23 June Denton PA-C 175 [facility] [address] [place] [address] Specialist Neurosurgery 05/02/23 Nichole Otto MD 175 [facility] [address] [place] [address] Surgeon Neurosurgery 05/02/23 documented as of this encounter
--- OUTSIDE RECORDS SUMMARY | 2024-11-29 13:03 | XMS_ITS | Encounter Summary ---
Author Organization [facility] Address [address] [place] [address] Care Team Providers Care Middleware Engineer Name Role Phone Riccardo Robledo MD Primary Care Provider [phone] Olga Ochoa MD Unavailable Mina Dominguez-C Unavailable Addison Winslow PA-C Unavailable [phone] June Denton PA-C Unavailable [phone] Nichole Otto MD Unavailable [phone] Encounter Details Date Type Department Care Team Description 10/10/2023 Pt. Non Urgent Medical Question [facility] 175 [facility] [address] [place] [address] Akin Delacruz MD 175 [facility] [address] [place], [place] [address] Social History Tobacco Use Types Packs/Day Years [...] on filedocumented in this encounter Care Teams Middleware Engineer Relationship Specialty Start Date End Date Riccardo Robledo MD [address] [place] [address] PCP - General Internal Medicine 12/28/19 Olga Ochoa MD [address] [place] [address] Specialist Lung Cancer Bottling Line Attendant 03/07/21 Mina Dominguez PA-C 299 [facility] [address] [place] [address] Specialist Thoracic Surgery 04/29/22 Addison Winslow PA-C 175 [facility] [address] [place] [address] Specialist Neurosurgery 05/02/23 June Denton PA-C 175 [facility] [address] [place] [address] Specialist Neurosurgery 05/02/23 Nichole Otto MD 175 [facility] [address] [place] [address] Surgeon Neurosurgery 05/02/23 documented as of this encounter
--- OUTSIDE RECORDS SUMMARY | 2024-11-29 13:03 | XMS_ITS | Encounter Summary ---
Author Organization [facility] Address [address] [place] [address] Care Team Providers Care Video Production Intern Name Role Phone Riccardo Robledo MD Primary Care Provider [phone] Olga Ochoa MD Unavailable Mina Dominguez-C Unavailable [phone] Addison Winslow-C Unavailable June Denton-Will Unavailable [phone] Nichole Otto MD Unavailable [phone] Encounter Details Date Type Department Care Team Description 01/02/2023 Pt. Non Urgent Medic al Question Adult Medicine - [place] [address] [place] [address] Riccardo Robledo MD [address] [place] [address] Social History Tobacco Use Types Packs/Day Years [...] work and EKG that was done in [facility] ER I went there yesterday about 130 pm and got home at 730 p m because I didn't want to wait to see a doctor for my esophagus problem the ER at [facility] has gotten bad the care there needs to be addressed please get my results and let me know the outcome of my blood work and EKG Thank you Valdemar call me at [phone] documented in this encounter Plan of Treatment Not on file documented as of this encounter Visit Diagnoses Not on filedocumented in this encounter Care Teams Video Production Intern Relationship Specialty Start Date End Date Riccardo Robledo MD [address] [place] [address] PCP - General Internal Medicine 12/28/19 Olga Ochoa MD [address] [place] [address] Specialist Lung Cancer Stroboroma Operator 03/07/21 Mina Dominguez PA-C 299 [facility] 410 [place] [address] Specialist Thoracic Surgery 04/29/22 Addison Winslow PA-C 175 [facility] [address] [place] [address] Specialist Neurosurgery 05/02/23 June Denton PA-C 175 [facility] [address] [place] [address] Specialist Neurosurgery 05/02/23 Nichole Otto MD [address] [place] [address] Surgeon Neurosurgery 05/02/23 documented as of this encounter
--- OUTSIDE RECORDS SUMMARY | 2024-11-29 13:03 | XMS_ITS | Encounter Summary ---
Author Organization [facility] Address [address] [place] [address] Care Team Providers Care Tower Equipment Installer Name Role Phone Riccardo Robledo MD Primary Care Provider [phone] Olga Ochoa MD Unavailable Mina Dominguez-C Unavailable Addison Winslow PA-C Unavailable [phone] June Denton PA-C Unavailable Nichole Otto MD Unavailable [phone] Encounter Details Date Type Department Care Team Description 10/09/2023 Pt. Non Urgent Medical Question [facility] 175 [facility] [address] [place] [address] Akin Delacruz MD 175 [facility] [address] [place], [place] [phone] Social History Tobacco Use Types Packs/Day Years [...] on filedocumented in this encounter Care Teams Tower Equipment Installer Relationship Specialty Start Date End Date Riccardo Robledo MD [address] [place] [address] PCP - General Internal Medicine 12/28/19 Olga Ochoa MD [address] [place] [address] Specialist Lung Cancer Pest Control Technician 03/07/21 Mina Dominguez PA-C 299 [facility] [address] [place] [address] Specialist Thoracic Surgery 04/29/22 Addison Winslow PA-C 175 [facility] [address] [place] [address] Specialist Neurosurgery 05/02/23 June Denton PA-C 175 [facility] 300 [place] [address] Specialist Neurosurgery 05/02/23 Nichole Otto MD 175 [facility] [address] [place] [address] Surgeon Neurosurgery 05/02/23 documented as of this encounter
--- OUTSIDE RECORDS SUMMARY | 2024-11-29 13:03 | XMS_ITS | Encounter Summary ---
Author Organization [facility] Address [address] [place] [address] Care Team Providers Care Irrigation System Installer Name Role Phone Riccardo Robledo MD Primary Care Provider [phone] Olga Ochoa MD Unavailable Mina Dominguez-C Unavailable Addison Winslow-C Unavailable June Denton-Will Unavailable Nichole Otto MD Unavailable [phone] Encounter Details Date Type Department Care Team Description 10/13/2023 Pt. Non Urgent Medic al Question Adult Medicine - [place] [address] [place] [address] Riccardo Robledo MD [address] [place] [address] Social History Tobacco Use Types Packs/Day Years [...] on filedocumented in this encounter Care Teams Irrigation System Installer Relationship Specialty Start Date End Date Riccardo Robledo MD [address] [place] [address] PCP - General Internal Medicine 12/28/19 Olga Ochoa MD [address] [place] [address] Specialist Lung Cancer Resident Engineer 03/07/21 Mina Dominguez PA-C [address] [phone] Specialist Thoracic Surgery 04/29/22 Addison Winslow PA-C 175 [facility] 300 [place] [address] Specialist Neurosurgery 05/02/23 June Denton PA-C 175 [facility] 300 [place] [address] Specialist Neurosurgery 05/02/23 Nichole Otto MD 175 [facility] [address] [place] [address] Surgeon Neurosurgery 05/02/23 documented as of this encounter
--- OUTSIDE RECORDS SUMMARY | 2024-11-29 13:03 | XMS_ITS | Encounter Summary ---
Author Organization [facility] Address [address] [place] [address] Care Team Providers Care Atomic Process Engineer Name Role Phone Riccardo Robledo MD Primary Care Provider Olga Ochoa MD Unavailable Mina Dominguez-C Unavailable [phone] Addison Winslow PA-C Unavailable June Denton PA-C Unavailable [phone] Nichole Otto MD Unavailable [phone] Encounter Details Date Type Department Care Team Description 12/10/2022 Orders Only Medical Records [address] [place] [address] Abstract, Provider Social History Tobacco Use Types [...] Associated Diagnosis Comments OUTSIDE PLAIN FILM Routine 12/09/2022 documented in this encounter Results * OUTSIDE PLAIN FILM (12/09/2022) Provider Abstract RADIOLOGY documented in this encounter Visit Diagnoses Not on filedocumented in this encounter Care Teams Atomic Process Engineer Relationship Specialty Start Date End Date Riccardo Robledo MD [address] [place] [address] PCP - General Internal Medicine 12/28/19 Olga Ochoa MD [address] [place] [address] Specialist Lung Cancer Children'S Author 03/07/21 Mina Dominguez PA-C 299 [facility] [address] [place] [address] Specialist Thoracic Surgery 04/29/22 Addison Winslow PA-C 175 [facility] [address] [place] [address] Specialist Neurosurgery 05/02/23 June Denton PA-C 175 [facility] [address] [place] [address] Specialist Neurosurgery 05/02/23 Nichole Otto MD 175 [facility] [address] [place] [address] Surgeon Neurosurgery 05/02/23 documented as of this encounter
--- OUTSIDE RECORDS SUMMARY | 2024-11-29 13:03 | XMS_ITS | Encounter Summary ---
Author Organization [facility] Address [address] [place] [address] Care Team Providers Care Manager Engine Name Role Phone Riccardo Robledo MD Primary Care Provider Olga Ochoa MD Unavailable Mina Dominguez PA-C Unavailable Addison Winslow PA-C Unavailable June Denton-Will Unavailable Nichole Otto MD Unavailable [phone] Reason for Visit * Reason Onset Date Comments medication problems 09/01/2023 Encounter Details Date Type Department Care Team Description 09/01/2023 Telephone Adult Medicine - [place] [address] [place], [place] [phone] Riccardo Robledo MD [address] [place], [place] [phone] medication problems Social History Tobacco Use Types [...] filedocumented in this encounter Care Teams Manager Engine Relationship Specialty Start Date End Date Riccardo Robledo MD [address] [place] [address] PCP - General Internal Medicine 12/28/19 Olga Ochoa MD [address] [place] [address] Specialist Lung Cancer Linen Sorter 03/07/21 Mina Dominguez PA-C 299 [facility] [address] [place] [address] Specialist Thoracic Surgery 04/29/22 Addison Winslow PA-C 175 [facility] [address] [place] [address] Specialist Neurosurgery 05/02/23 June Denton PA-C 175 [facility] [address] [place] [address] Specialist Neurosurgery 05/02/23 Nichole Otto MD [address] [place] [address] Surgeon Neurosurgery 05/02/23 documented as of this encounter
--- OUTSIDE RECORDS SUMMARY | 2024-11-29 13:03 | XMS_ITS | Encounter Summary ---
Author Organization [facility] Address [address] [place] [address] Care Team Providers Care Veterinary Inspector Name Role Phone Riccardo Robledo MD Primary Care Provider [phone] Olga Ochoa MD Unavailable Mina Dominguez PA-C Unavailable [phone] Addison Winslow PA-C Unavailable June Denton-C Unavailable [phone] Nichole Otto MD Unavailable [phone] Reason for Visit * Reason Onset Date Comments Orders Call 10/06/2023 Encounter Details Date Type Department Care Team Description 10/06/2023 Telephone Adult Medicine - [place] [address] [place], [place] [phone] Riccardo Robledo MD [address] [place], [place] [phone] Orders Call Social History Tobacco Use Types [...] on filedocumented in this encounter Care Teams Veterinary Inspector Relationship Specialty Start Date End Date Riccardo Robledo MD [address] [place] [address] PCP - General Internal Medicine 12/28/19 Olga Ochoa MD [address] [place] [address] Specialist Lung Cancer Family Medicine Resident 03/07/21 Mina Dominguez PA-C 299 [facility] [address] [place] [address] Specialist Thoracic Surgery 04/29/22 Addison Winslow PA-C 175 [facility] [address] [place] [address] Specialist Neurosurgery 05/02/23 June Denton PA-C 175 [facility] [address] [place] [address] Specialist Neurosurgery 05/02/23 Nichole Otto MD 175 [facility] [address] [place] [address] Surgeon Neurosurgery 05/02/23 documented as of this encounter
--- OUTSIDE RECORDS SUMMARY | 2024-11-29 13:03 | XMS_ITS | Encounter Summary ---
Author Organization [facility] Address [address] [place] [address] Care Team Providers Care Manager Sourcing Name Role Phone Riccardo Robledo MD Primary Care Provider [phone] Olga Ochoa MD Unavailable Mina Dominguez-C Unavailable Addison Winslow-C Unavailable June Denton PA-C Unavailable Nichole Otto MD Unavailable [phone] Encounter Details Date Type Department Care Team Description 09/29/2023 Pt. Non Urgent Medic al Question Adult Medicine - [place] [address] [place] [address] Riccardo Robledo MD [address] [place] [address] Social History Tobacco Use Types Packs/Day Years [...] Telephone Encounter - Mary Austin L.P.N. - 09/29/2023 9:01 AM EDT From: Jv Monroy To: Will Robledo Sent: 09/29/2023 5:07 AM EDT Subject: Medication DR Swanson my mom doesn't have account set up could you please send in her sleeping pills to [facility] pharmacy please Thank You Valdemar she couldn't sleep that good last night documented in this encounter Plan of Treatment Not on file documented as of this encounter Visit Diagnoses Not on filedocumented in this encounter Care Teams Manager Sourcing Relationship Specialty Start Date End Date Riccardo Robledo MD [address] [place] [address] PCP - General Internal Medicine 12/28/19 Olga Ochoa MD [address] [place] [address] Specialist Lung Cancer Rn Circulating 03/07/21 Mina Dominguez PA-C [address] [address] Specialist Thoracic Surgery 04/29/22 Addison Winslow PA-C 175 [facility] [address] [place] [address] Specialist Neurosurgery 05/02/23 June Denton PA-C 175 [facility] [address] [place] [address] Specialist Neurosurgery 05/02/23 Nichole Otto MD 175 [facility] [address] [place] [address] Surgeon Neurosurgery 05/02/23 documented as of this encounter
--- OUTSIDE RECORDS SUMMARY | 2024-11-29 13:03 | XMS_ITS | Encounter Summary ---
Author Organization [facility] Address [address] [place] [address] Care Team Providers Care Medical Specialist Name Role Phone Riccardo Robledo MD Primary Care Provider [phone] Olga Ochoa MD Unavailable Mina Dominguez PA-C Unavailable Addison Winslow PA-C Unavailable June Denton PA-C Unavailable Nichole Otto MD Unavailable [phone] Encounter Details Date Type Department Care Team Description 10/29/2023 Pt. Non Urgent Medical Question [facility] 175 [facility] [address] [place] [address] Akin Delacruz MD 175 [facility] [address] [place], [place] [phone] Chronic left shoulder pain (Primary Dx); S/P left rotator cuff repair Social History Tobacco Use Types Packs/Day Years [...] as of this encounter Visit Diagnoses Diagnosis Chronic left shoulder pain- Primary Pain in joint, shoulder region S/P left rotator cuff repair documented in this encounter Care Teams Medical Specialist Relationship Specialty Start Date End Date Riccardo Robledo MD [address] [place] [address] PCP - General Internal Medicine 12/28/19 Olga Ochoa MD [address] [place] [address] Specialist Lung Cancer Mineral Economist 03/07/21 Mina Dominguez PA-C 299 [facility] [address] [place] [address] Specialist Thoracic Surgery 04/29/22 Addison Winslow PA-C [address] [address] Specialist Neurosurgery 05/02/23 June Denton PA-C 175 [facility] [address] [place] [address] Specialist Neurosurgery 05/02/23 Nichole Otto MD [address] [address] Surgeon Neurosurgery 05/02/23 documented as of this encounter
--- OUTSIDE RECORDS SUMMARY | 2024-11-29 13:03 | XMS_ITS | Encounter Summary ---
Author Organization [facility] Address [address] [place] [address] Care Team Providers Care Foreign Diplomat Name Role Phone Riccardo Robledo MD Primary Care Provider Olga Ochoa MD Unavailable Mina Dominguez PA-C Unavailable Addison Winslow PA-C Unavailable June Denton-C Unavailable [phone] Nichole Otto MD Unavailable [phone] Reason for Visit * Reason Onset Date Comments LAB WORK 09/28/2021 Encounter Details Date Type Department Care Team Description 09/28/2021 Telephone Adult Medicine - [place] [address] [place], [place] [phone] Riccardo Robledo MD [address] [place], [place] [phone] LAB WORK Social History Tobacco Use Types Packs/Day Years [...] encounter Miscellaneous Notes * Telephone Encounter - Sun Bassett - 09/28/2021 1:33 PM EDT Pt [facility] at [facility] 09/27 and wants the bloodwork results from this visit. Pt sts he did leave early from the er before the results were able to be given. documented in this encounter Plan of Treatment Not on file documented as of this encounter Visit Diagnoses Not on filedocumented in this encounter Care Teams Foreign Diplomat Relationship Specialty Start Date End Date Riccardo Robledo MD [address] [place] [address] PCP - General Internal Medicine 12/28/19 Olga Ochoa MD [address] [place] [address] Specialist Lung Cancer Custodial Services Manager 03/07/21 Mina Dominguez PA-C 299 [facility] [address] [place] [address] Specialist Thoracic Surgery 04/29/22 Addison Winslow PA-C 175 [facility] [address] [place] [address] Specialist Neurosurgery 05/02/23 June Denton PA-C 175 [facility] [address] [place] [address] Specialist Neurosurgery 05/02/23 Nichole Otto MD [address] [address] Surgeon Neurosurgery 05/02/23 documented as of this encounter
--- OUTSIDE RECORDS SUMMARY | 2024-11-29 13:04 | XMS_ITS | Encounter Summary ---
Author Organization [facility] Address [address] [place] [address] Care Team Providers Care Watershed Program Manager Name Role Phone Riccardo Robledo MD Primary Care Provider [phone] Olga Ochoa MD Unavailable Mina Dominguez PA-C Unavailable [phone] Addison Winslow PA-C Unavailable June Denton PA-C Unavailable [phone] Nichole Otto MD Unavailable [phone] Encounter Details Date Type Department Care Team Description 05/22/2020 Orders Only Medical Records [address] [place] [address] Mina Eckert, DPM [address] [address] Social History Tobacco Use Types Packs/Day Years [...] on filedocumented in this encounter Care Teams Watershed Program Manager Relationship Specialty Start Date End Date Riccardo Robledo MD [address] [place] [address] PCP - General Internal Medicine 12/28/19 Olga Ochoa MD [address] [place] [address] Specialist Lung Cancer Makeup Sales Advisor 03/07/21 Mina Dominguez PA-C [address] [phone] Specialist Thoracic Surgery 04/29/22 Addison Winslow PA-C 175 [facility] [address] [place] [address] Specialist Neurosurgery 05/02/23 June Denton PA-C [address] [address] Specialist Neurosurgery 05/02/23 Nichole Otto MD [address] [address] Surgeon Neurosurgery 05/02/23 documented as of this encounter
--- OUTSIDE RECORDS SUMMARY | 2024-11-29 13:04 | XMS_ITS | Encounter Summary ---
Author Organization [facility] Address [address] [place] [address] Care Team Providers Care Caramel Candy Maker Helper Name Role Phone Riccardo Robledo MD Primary Care Provider Olga Ochoa MD Unavailable Mina Dominguez-C Unavailable [phone] Addison WinslowC Unavailable [phone] June Denton PA-C Unavailable [phone] Nichole Otto MD Unavailable [phone] Encounter Details Date Type Department Care Team Description 05/06/2022 Black Top Raker Report Medical Records [address] [place] [address] Johnathan Cerda MD Social History Tobacco Use [...] on filedocumented in this encounter Care Teams Caramel Candy Maker Helper Relationship Specialty Start Date End Date Riccardo Robledo MD [address] [place] [address] PCP - General Internal Medicine 12/28/19 Olga Ochoa MD [address] [place] [address] Specialist Lung Cancer Gas Regulator Repairer Helper 03/07/21 Mina Dominguez PA-C 299 [facility] [address] [place] [address] Specialist Thoracic Surgery 04/29/22 Addison Winslow PA-C 175 [facility] [address] [place] [address] Specialist Neurosurgery 05/02/23 June Denton PA-C 175 [facility] [address] [place] [address] Specialist Neurosurgery 05/02/23 Nichole Otto MD 175 [facility] [address] [place] [address] Surgeon Neurosurgery 05/02/23 documented as of this encounter
--- OUTSIDE RECORDS SUMMARY | 2024-11-29 13:04 | XMS_ITS | Encounter Summary ---
Author Organization [facility] Address [address] [place] [address] Care Team Providers Care Piano Teacher Name Role Phone Riccardo Robledo MD Primary Care Provider Olga Ochoa MD Unavailable Mina Dominguez PA-C Unavailable [phone] Addison Winslow PA-C Unavailable [phone] June Denton-Will Unavailable [phone] Nichole Otto MD Unavailable [phone] Reason for Visit * Reason Onset Date Comments refill request 08/29/2023 Encounter Details Date Type Department Care Team Description 08/29/2023 Refill Adult Medicine - [place] [address] [place], [place] [id number] Riccardo Robledo MD [address] [place] [address] refill request Social History Tobacco Use Types [...] NONE DETECTED 05/14/2023 PAINCANNABIN NONE DETECTED 05/14/2023 PURCHASING INTERNSHIP * Telephone Encounter - Gordon Melara - [...] insurance carrier is: [place] / [place] / Product Type: MEDICARE [id number] documented in this encounter Plan of Treatment Not on file documented as of this encounter Visit Diagnoses Not on filedocumented in this encounter Care Teams Piano Teacher Relationship Specialty Start Date End Date Riccardo Robledo MD [address] [place] [address] PCP - General Internal Medicine 12/28/19 Olga Ochoa MD [address] [place] [address] Specialist Lung Cancer Still Photographer 03/07/21 Mina Dominguez PA-C [address] [phone] Specialist Thoracic Surgery 04/29/22 Addison Winslow PA-C 175 [facility] [address] [place] [address] Specialist Neurosurgery 05/02/23 June Denton PA-C 175 [facility] 300 [place] [address] Specialist Neurosurgery 05/02/23 Nichole Otto MD 175 [facility] [address] [place] [address] Surgeon Neurosurgery 05/02/23 documented as of this encounter
--- OUTSIDE RECORDS SUMMARY | 2024-11-29 13:04 | XMS_ITS | Encounter Summary ---
Author Organization [facility] Address [address] [place] [address] Care Team Providers Care Occupational Therapy Department Chair Name Role Phone Riccardo Robledo MD Primary Care Provider [phone] Olga Ochoa MD Unavailable Mina Dominguez-C Unavailable [phone] Addison Winslow-C Unavailable [phone] June Denton PA-C Unavailable [phone] Nichole Otto MD Unavailable [phone] Encounter Details Date Type Department Care Team Description 07/18/2021 Pt. Non Urgent Medic al Question Adult Medicine - [place] [address] [place] [address] Riccardo Robledo MD [address] [place] [address] Social History Tobacco Use Types Packs/Day Years [...] Telephone Encounter - Mireya Figueroa M.A. - 07/18/2021 1:08 PM EDTFrom: Jv Velasquez To: Will Robledo Sent: 07/18/2021 12:53 PM EDT Subject: My appointment DR MARC I MADE A APPOINTMENT A WHILE AGO MY APPOINTMENT WAS FOR TOMORROW THE OFFICE CALL AND TOLD ME THAT THEY HAVE TO CANCEL THE APPOINTMENT BECAUSE THE PROVIDER OUIT THREE DAYS AGO MIKHAIL UPSET BECAUSE THEY SHOULD HAVE CALL ME A DAY AFTER SHE QUIT FOR I COULD HAVE MADE OTHER ARRANGEMENTS THIS ISNOT RIGHT YOU DONT CALL SOMEONE A.DAY BEFORE THEIR APPOINTMENT TO CANCEL I NEED TO SEE SOMEONE SOON POSSIBLE FOR MY RIGHT TOE INJURY THE [employer] OFFICE SENT GOKUL A MESSAGE AND I HAVE NOT HEARDFROM HER TO MAKE APPOINTMENT SOON POSSIBLE COULD YOU HAVE HER CALL ME AT [phone] THE [employer] OFFICE SEND HER A MESSAGE I HAVE NOTHING AGAINST YOU BECAUSE YOU ARE A GOOD DOCTOR BUT THE PEOPLE THAT WORK THERE SHOULD HAVE CALL ME WHEN THIS HAPPEN THEY TOOK LONG FIX THIS PROBLEM THANK YOU JV VELASQUEZ JR documented in this encounter Plan of Treatment Not on file documented as of this encounter Visit Diagnoses Not on filedocumented in this encounter Care Teams Occupational Therapy Department Chair Relationship Specialty Start Date End Date Riccardo Robledo MD [address] [place] [address] PCP - General Internal Medicine 12/28/19 Olga Ochoa MD [address] [place] [address] Specialist Lung Cancer General Surgery Physician Assistant 03/07/21 Mina Dominguez PA-C 299 [facility] [address] [place] [phone] Specialist Thoracic Surgery 04/29/22 Addison Winslow PA-C 175 [facility] [address] [place] [address] Specialist Neurosurgery 05/02/23 June Denton PA-C 175 [facility] [address] [place] [address] Specialist Neurosurgery 05/02/23 Nichole Otto MD [address] [facility] [address] [place] [address] Surgeon Neurosurgery 05/02/23 documented as of this encounter
--- OUTSIDE RECORDS SUMMARY | 2024-11-29 13:04 | XMS_ITS | Encounter Summary ---
Author Organization [facility] Address [address] [place] [address] Care Team Providers Care Pasteurizer Name Role Phone Riccardo Robledo MD Primary Care Provider [phone] Olga Ochoa MD Unavailable Mina Dominguez PA-C Unavailable Addison Winslow PA-C Unavailable June Denton PA-C Unavailable Nichole Otto MD Unavailable [phone] Encounter Details Date Type Department Care Team Description 07/21/2023 Animal Maintenance Supervisor Report Medical Records [address] [place] [address] Wilmar Beal MD Social History Tobacco Use [...] on filedocumented in this encounter Care Teams Pasteurizer Relationship Specialty Start Date End Date Riccardo Robledo MD [address] [place] [address] PCP - General Internal Medicine 12/28/19 Olga Ochoa MD [address] [place] [address] Specialist Lung Cancer Deputy Chief Counsel 03/07/21 Mina Dominguez PA-C 299 [facility] [address] [place] [address] Specialist Thoracic Surgery 04/29/22 Addison Winslow PA-C 175 [facility] [address] [place] [address] Specialist Neurosurgery 05/02/23 June Denton PA-C 175 [facility] 300 [place] [address] Specialist Neurosurgery 05/02/23 Nichole Otto MD 175 [facility] [address] [place] [address] Surgeon Neurosurgery 05/02/23 documented as of this encounter
--- OUTSIDE RECORDS SUMMARY | 2024-11-29 13:04 | XMS_ITS | Encounter Summary ---
Author Organization [facility] Address [address] [place] [address] Care Team Providers Care Revenue Investigator Name Role Phone Riccardo Robledo MD Primary Care Provider [phone] Olga Ochoa MD Unavailable Mina Dominguez PA-C Unavailable [phone] Addison Winslow PA-C Unavailable June Denton PA-C Unavailable Nichole Otto MD Unavailable [phone] Encounter Details Date Type Department Care Team Description 06/06/2021 Refill [facility] Thoracic Surgery [place] 299 [facility] [address] [place] [phone] Mina Dominguez PA-C 299 [facility] [place] [address] [place] [phone] Social History Tobacco Use Types Packs/Day Years [...] on filedocumented in this encounter Care Teams Revenue Investigator Relationship Specialty Start Date End Date Riccardo Robledo MD [address] [place] [address] PCP - General Internal Medicine 12/28/19 Olga Ochoa MD [address] [place] [address] Specialist Lung Cancer Clinical Appeals Specialist 03/07/21 Mina Dominguez PA-C 299 [facility] [address] [place] [address] Specialist Thoracic Surgery 04/29/22 Addison Winslow PA-C 175 [facility] [address] [place] [address] Specialist Neurosurgery 05/02/23 June Denton PA-C 175 [facility] [address] [place] [address] Specialist Neurosurgery 05/02/23 Nichole Otto MD 175 [facility] [address] [place] [address] Surgeon Neurosurgery 05/02/23 documented as of this encounter
--- OUTSIDE RECORDS SUMMARY | 2024-11-29 13:04 | XMS_ITS | Encounter Summary ---
Author Organization [facility] Address [address] [place] [address] Care Team Providers Care Manager Mobility Name Role Phone Riccardo Robledo MD Primary Care Provider Olga Ochoa MD Unavailable Mina Dominguez PA-C Unavailable Addison Winslow PA-C Unavailable June Denton-Will Unavailable [phone] Nichole Otto MD Unavailable [phone] Reason for Visit * Reason Onset Date Comments medication problems 06/27/2023 Encounter Details Date Type Department Care Team Description 06/27/2023 Telephone Adult Medicine - [place] [address] [place], [place] [phone] Riccardo Robledo MD [address] [place], [place] [phone] medication problems Social History Tobacco Use Types [...] Telephone Encounter - Mireya Figueroa M.A. - 06/27/2023 4:07 PM EDT Images from the original note were not included. Called [facility] , pharmacist states pt picked up medication on 06/22/23. ENZYME CHEMIST * Telephone Encounter - Gordon Mckinleykim - 06/27/2023 4:05 PM EDT Who is calling? Other: Name of caller: Nilda Relationship to patient: [employer] prescription ins Name of the medication oxycodone (ROXICODONE) 5 MG/5ML solution What is the specific problem or interaction? Calling because the dosage is over what is allowed, only allows 900 ml per 30 days. If the patient is having a problem with taking the med - how long has the problem been going on? N/A documented in this encounter Plan of Treatment Not on file documented as of this encounter Visit Diagnoses Not on filedocumented in this encounter Care Teams Manager Mobility Relationship Specialty Start Date End Date Riccardo Robledo MD [address] [place] [address] PCP - General Internal Medicine 12/28/19 Olga Ochoa MD [address] [place] [address] Specialist Lung Cancer Sales Performance Analyst 03/07/21 Mina Dominguez PA-C 299 [facility] [place] [address] [place] [address] Specialist Thoracic Surgery 04/29/22 Addison Winslow PA-C 175 [facility] [address] [place] [address] Specialist Neurosurgery 05/02/23 June Denton PA-C 175 [facility] [address] [place] [address] Specialist Neurosurgery 05/02/23 Nichole Otto MD [address] [place] [address] Surgeon Neurosurgery 05/02/23 documented as of this encounter
--- OUTSIDE RECORDS SUMMARY | 2024-11-29 13:04 | XMS_ITS | Encounter Summary ---
Author Organization [facility] Address [address] [place] [address] Care Team Providers Care Lidar Analyst Name Role Phone Riccardo Robledo MD Primary Care Provider [phone] Olga Ochoa MD Unavailable Mina Dominguez-C Unavailable Addison Winslow PA-C Unavailable June Denton PA-C Unavailable Nichole Otto MD Unavailable [phone] Encounter Details Date Type Department Care Team Description 09/02/2022 SCAN [facility] Medical [facility] 175 [facility] [address] [place] [address] Sharmila Martinez APRN Social History [...] on filedocumented in this encounter Care Teams Lidar Analyst Relationship Specialty Start Date End Date Riccardo Robledo MD [address] [place] [address] PCP - General Internal Medicine 12/28/19 Olga Ochoa MD [address] [place] [address] Specialist Lung Cancer Chopper Operator 03/07/21 Mina Dominguez PA-C [address] [phone] Specialist Thoracic Surgery 04/29/22 Addison Winslow PA-C 175 [facility] [address] [place] [address] Specialist Neurosurgery 05/02/23 June Denton PA-C 175 [facility] [address] [place] [address] Specialist Neurosurgery 05/02/23 Nichole Otto MD [address] [address] Surgeon Neurosurgery 05/02/23 documented as of this encounter
--- OUTSIDE RECORDS SUMMARY | 2024-11-29 13:04 | XMS_ITS | Encounter Summary ---
Author Organization [facility] Address [address] [place] [address] Care Team Providers Care Mental Health Assistant Name Role Phone Riccardo Robledo MD Primary Care Provider Olga Ochoa MD Unavailable Mina DominguezC Unavailable Addison WinslowC Unavailable June Denton PA-C Unavailable Nichole Otto MD Unavailable [phone] Encounter Details Date Type Department Care Team Description 07/01/2023 Release of Information Medical Records [address] [place] [address] Abstract, Provider Social History Tobacco Use Types [...] on filedocumented in this encounter Care Teams Mental Health Assistant Relationship Specialty Start Date End Date Riccardo Robledo, [address] [place] [address] PCP - General Internal Medicine 12/28/19 Olga Ochoa MD [address] [place] [address] Specialist Lung Cancer Mechanical Tech 03/07/21 Mina Dominguez PA-C 299 [facility] [address] [place] [phone] Specialist Thoracic Surgery 04/29/22 Addison Winslow PA-C 175 [facility] [address] [place] [address] Specialist Neurosurgery 05/02/23 June Denton PA-C 175 [facility] [address] [place] [address] Specialist Neurosurgery 05/02/23 Nichole Otto MD 175 [facility] [address] [place] [address] Surgeon Neurosurgery 05/02/23 documented as of this encounter
--- OUTSIDE RECORDS SUMMARY | 2024-11-29 13:04 | XMS_ITS | Encounter Summary ---
Author Organization [facility] Address [address] [place] [address] Care Team Providers Care Concrete Swimming Pool Installer Name Role Phone Riccardo Robledo MD Primary Care Provider [phone] Olga Ochoa MD Unavailable Mina Dominguez PA-C Unavailable [phone] Addison Winslow PA-C Unavailable June Denton PA-C Unavailable Nichole Otto MD Unavailable [phone] Reason for Referral * Radiology Services (Routine) - Closed Specialty Diagnoses / Procedures Referred By Contjayce t Referred To Contact Radiology Diagnoses Lumbar radiculopathy Procedures MRI OF LUMBAR SPINE NO CONTRAST Logan Romero PA-C [address] [place], [place] Mri/[address] [address] Referral ID Status Reason Start Date Expiration Date Visits Re quested Visits Authorized Closed 08/27/2022 08/27/2023 1 1 Encounter Details Date Type Department Care Team Description 08/26/2022 Pt. Non Urgent Medical Question Adult Medicine - [address] [address] Logan Romero PA-C [address] [place] [address] Lumbar radiculopathy (Primary Dx); Leg heaviness Social [...] changes have stable appearance compared with 09/15/2020. No new nerve root impingement. No high-grade neural foraminal narrowing or spinal canal stenosis at any level. POS - [id number] Narrative [place] OTHER EXTERNAL - 08/30/2022 6:00 PM EDT EXAM: Lumbar spine MRI HISTORY: Low back pain COMPARISON: 09/15/2020 CORRELATION: Lumbar spine radiography 08/20/2022 TECHNIQUE: Exam performed on a 1.5 Cathleen high-field MRI scanner. Multiplanar imaging performed without contrast. FINDINGS: Conus medullaris terminates at T12-L1 which is within normal limits. No abnormal cord signal detected. Vertebral body heights are maintained. No new focal suspicious bone lesion. Chronic prominent anterior partial bridging osteophytes at L2-3 and L3-4. Intervertebral disc heights are maintained and the discs are well-hydrated. Partially imaged 2.4 cm T1 hypointense and T2 hyperintense signal lesion in the right lower kidney statistically represents a cyst. L1-L2: No significant disc bulging or evidence of a disc protrusion or extrusion. No significant neural foraminal narrowing or spinal canal stenosis. L2-L3: Chronic minimal disc bulging. No significant neural foraminal narrowing or spinal canal stenosis. L3-L4: Chronic minimal disc bulging. No significant neural foraminal narrowing or spinal canal stenosis. L4-L5: Chronic minimal disc bulging. Minimal bilateral facet arthropathy. No significant neural foraminal narrowing or spinal canal stenosis. L5-S1: Chronic minimal disc bulging. Minimal bilateral facet arthropathy. Mild right neural foraminal narrowing. No significant left neural foraminal narrowing or significant [...] spinalcanal stenosis at any level. POS - [id number] Logan Romero PA-C MRI [facility] OTHER EXTERNAL documented in this encounter Visit Diagnoses Diagnosis Lumbar radiculopathy- Primary Thoracic or lumbosacral neuritis or radiculitis, unspecified Leg heaviness Other musculoskeletal symptoms referable to limbs Lumbar radiculopathy Thoracic or lumbosacral neuritis or radiculitis, unspecified documented in this encounter Care Teams Concrete Swimming Pool Installer Relationship Specialty Start Date End Date Riccardo Robledo MD [address] [place] [address] PCP - General Internal Medicine 12/28/19 Olga Ochoa MD [address] [place] [address] Specialist Lung Cancer Face Worker 03/07/21 Mina Dominguez PA-C [address] [address] Specialist Thoracic Surgery 04/29/22 Addison Winslow PA-C 175 [facility] [address] [place] [address] Specialist Neurosurgery 05/02/23 June Denton PA-C 175 [facility] [address] [place] [address] Specialist Neurosurgery 05/02/23 Nichole Otto MD [address] [address] Surgeon Neurosurgery 05/02/23 documented as of this encounter
--- OUTSIDE RECORDS SUMMARY | 2024-11-29 13:04 | XMS_ITS | Encounter Summary ---
Author Organization [facility] Address [address] [place] [address] Care Team Providers Care Contract Writer Name Role Phone Riccardo Robledo MD Primary Care Provider [phone] Olga Ochoa MD Unavailable Mina Dominguez-C Unavailable Addison Winslow-C Unavailable June Denton PA-C Unavailable Nichole Otto MD Unavailable [phone] Encounter Details Date Type Department Care Team Description 07/04/2023 Pt. Non Urgent Medic al Question Adult Medicine - [place] [address] [place] [address] Riccardo Robledo MD [address] [place] [address] Social History Tobacco Use Types Packs/Day Years [...] on filedocumented in this encounter Care Teams Contract Writer Relationship Specialty Start Date End Date Riccardo Robledo MD [address] [place] [address] PCP - General Internal Medicine 12/28/19 Olga Ochoa MD [address] [place] [address] Specialist Lung Cancer Clock And Watch Hands Dipper 03/07/21 Mina Dominguez PA-C 299 [facility] [address] [place] [phone] Specialist Thoracic Surgery 04/29/22 Addison Winslow PA-C 175 [facility] [address] [place] [address] Specialist Neurosurgery 05/02/23 June Denton PA-C 175 [facility] [address] [place] [address] Specialist Neurosurgery 05/02/23 Nichole Otto MD 175 [facility] [address] [place] [address] Surgeon Neurosurgery 05/02/23 documented as of this encounter
--- OUTSIDE RECORDS SUMMARY | 2024-11-29 13:04 | XMS_ITS | Encounter Summary ---
Author Organization [facility] Address [address] [place] [address] Care Team Providers Care Client Support Consultant Name Role Phone Riccardo Robledo MD Primary Care Provider [phone] Olga Ochoa MD Unavailable Mina Dominguez-C Unavailable [phone] Addison Winslow-C Unavailable June Denton-Will Unavailable Nichole Otto MD Unavailable [phone] Encounter Details Date Type Department Care Team Description 07/12/2022 Pt. Non Urgent Medic al Question Adult Medicine - [place] [address] [place] [address] Riccardo Robledo MD [address] [place] [address] Social History Tobacco Use Types Packs/Day Years [...] Miscellaneous Notes * Telephone Encounter - Mary HuangPLucie - 07/12/2022 9:14 AM EDT From: Jv Monroy To: Will Robledo Sent: 07/12/2022 8:38 AM EDT Subject: Private Dr. Swanson I need to talk you as soon as possible ask you please call me I will tell you what is going on documented in this encounter Plan of Treatment Not on file documented as of this encounter Visit Diagnoses Not on filedocumented in this encounter Care Teams Client Support Consultant Relationship Specialty Start Date End Date Riccardo Robledo MD [address] [place] [address] PCP - General Internal Medicine 12/28/19 Olga Ochoa MD [address] [place] [address] Specialist Lung Cancer Cellar Supervisor 03/07/21 Mina Dominguez PA-C [address] [phone] Specialist Thoracic Surgery 04/29/22 Addison Winslow PA-C 175 [facility] [address] [place] [address] Specialist Neurosurgery 05/02/23 June Denton PA-C 175 [facility] [address] [place] [address] Specialist Neurosurgery 05/02/23 Nichole Otto MD [address] [address] Surgeon Neurosurgery 05/02/23 documented as of this encounter
--- OUTSIDE RECORDS SUMMARY | 2024-11-29 13:04 | XMS_ITS | Encounter Summary ---
Author Organization [facility] Address [address] [place] [address] Care Team Providers Care Clinical Partner Name Role Phone Riccardo Robledo MD Primary Care Provider Olga Ochoa MD Unavailable Mina Dominguez PA-C Unavailable Addison Winslow PA-C Unavailable [phone] June Denton-Will Unavailable Nichole Otto MD Unavailable [phone] Reason for Visit * Reason Onset Date Comments Form 07/25/2022 Encounter Details Date Type Department Care Team Description 07/25/2022 Pt. Non Urgent Medic al Question Adult Medicine - [place] [address] [place] [address] Riccardo Robledo MD [address] [place] [address] Social History Tobacco Use Types Packs/Day Years [...] Telephone Encounter - Mireya Figueroa M.A. - 07/25/2022 12:55 PM EDTFrom: Jv Monroy To: Will Robledo Sent: 07/25/2022 12:39 PM EDT Subject: Paper work To DR Swanson social security office is going to send you papers for you to fill out about my health issues documented in this encounter Plan of Treatment Not on file documented as of this encounter Visit Diagnoses Not on filedocumented in this encounter Care Teams Clinical Partner Relationship Specialty Start Date End Date Riccardo Robledo MD [address] [place] [address] PCP - General Internal Medicine 12/28/19 Olga Ochoa MD [address] [place] [address] Specialist Lung Cancer Bilingual Patient Support Caseworker 03/07/21 Mina Dominguez PA-C [address] [address] Specialist Thoracic Surgery 04/29/22 Addison Winslow PA-C 175 [facility] [address] [place] [address] Specialist Neurosurgery 05/02/23 June Denton PA-C 175 [facility] [address] [place] [address] Specialist Neurosurgery 05/02/23 Nichole Otto MD [address] [address] Surgeon Neurosurgery 05/02/23 documented as of this encounter
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
--- OUTSIDE RECORDS SUMMARY | 2024-11-29 13:04 | XMS_ITS | Encounter Summary ---
Author Organization [facility] Address [address] [place] [address] Care Team Providers Care Hydraulic Technician Name Role Phone Riccardo Robeldo MD Primary Care Provider Olga Ochoa MD Unavailable Mina Dominguez PA-C Unavailable Addison Winslow PA-C Unavailable [phone] June Denton-C Unavailable Nichole Otto MD Unavailable [phone] Reason for Visit * Reason Onset Date Comments Error 06/05/2021 Encounter Details Date Type Department Care Team Description 06/05/2021 Telephone Adult Medicine - [place] [address] [place], [place] [phone] Riccardo Robledo MD [address] [place], [place] [phone] Error Social History Tobacco Use Types Packs/Day [...] on filedocumented in this encounter Care Teams Hydraulic Technician Relationship Specialty Start Date End Date Riccardo Robledo MD [address] [place] [address] PCP - General Internal Medicine 12/28/19 Olga Ochoa MD 230 [place] [address] Specialist Lung Cancer Shell Fisherman 03/07/21 Mina Dominguez PA-C 299 [facility] [address] [place] [address] Specialist Thoracic Surgery 04/29/22 Addison Winslow PA-C 175 [facility] [address] [place] [address] Specialist Neurosurgery 05/02/23 June Denton PA-C 175 [facility] [address] [place] [address] Specialist Neurosurgery 05/02/23 Nichole Otto MD 175 [facility] [address] [place] [address] Surgeon Neurosurgery 05/02/23 documented as of this encounter
--- OUTSIDE RECORDS SUMMARY | 2024-11-29 13:04 | XMS_ITS | Encounter Summary ---
Author Organization [facility] Address [address] [place] [address] Care Team Providers Care Community Service Aide Name Role Phone Riccardo Robledo MD Primary Care Provider [phone] Olga Ochoa MD Unavailable Mina Dominguez-C Unavailable Addison Winslow-C Unavailable June Denton PA-C Unavailable Nichole Otto MD Unavailable [phone] Encounter Details Date Type Department Care Team Description 07/30/2021 Pt. Non Urgent Medic al Question Adult Medicine - [place] [address] [place] [address] Riccardo Robledo MD [address] [place] [address] Social History Tobacco Use Types Packs/Day Years [...] Telephone Encounter - Mary Austin L.P.N. - 07/30/2021 8:53 AM EDT From: Jv Monroy To: Will Robledo Sent: 07/30/2021 8:52 AM EDT Subject: PAIN on left arm DR TARI ELIZONDO HAVING BAD LEFT SHOUDER PAIN WORST THEN EVER COULD YOU ORDER A LOW DOSE CT SCAN OR A XRAY MIKHAIL HAVING PROBLEMS FUNCTIONING DAILY ALSO MY CHART IS SAIDING THAT MIKHAIL OVER DUE FOR BLOOD WORK AND COULD YOU SEND A ORDER TO [facility]LOOD [facility] documented in this encounter Plan of Treatment Not on file documented as of this encounter Visit Diagnoses Not on filedocumented in this encounter Care Teams Community Service Aide Relationship Specialty Start Date End Date Riccardo Robledo MD [address] [place] [address] PCP - General Internal Medicine 12/28/19 Olga Ochoa MD [address] [place] [address] Specialist Lung Cancer Gusset Folder 03/07/21 Mina Dominguez PA-C [address] [phone] Specialist Thoracic Surgery 04/29/22 Addison Winslow PA-C 175 [facility] [address] [place] [address] Specialist Neurosurgery 05/02/23 June Denton PA-C [address] [address] Specialist Neurosurgery 05/02/23 Nichole Otto MD 175 [facility] [address] [place] [address] Surgeon Neurosurgery 05/02/23 documented as of this encounter
--- OUTSIDE RECORDS SUMMARY | 2024-11-29 13:04 | XMS_ITS | Encounter Summary ---
Author Organization [facility] Address [address] [place] [address] Care Team Providers Care Track Repairer Name Role Phone Riccardo Robledo MD Primary Care Provider [phone] Olga Ochoa MD Unavailable Mina Dominguez PA-C Unavailable Addison Winslow PA-C Unavailable [phone] June Denton PA-C Unavailable [phone] Nichole Otto MD Unavailable [phone] Encounter Details Date Type Department Care Team Description 04/29/2022 Orders Only [facility] Thoracic Surgery [place] 299 [facility] [address] [place] [phone] Mina Dominguez PA-C 299 [facility] [address] [place] [phone] Achalasia, esophageal Social History Tobacco Use Types Packs/Day Years [...] suspected to have Coronavirus/COVID-19? No / Unsure 05/01/2022 9:24 AM EST documented as of this encounter Plan of Treatment Not on file documented as of this encounter Procedures Procedure Name Priority Date/Time Associated Diagnosis Comments CHG RADIOLOGIC EXAM ESOPHAGU S SINGLE CONTRAST STUDY Routine 04/29/2022 Achalasia, esophageal documented in this encounter Results * CHG RADIOLOGIC EXAM ESOPHAGUS SINGLE CONTRAST STUDY (04/29/2022) Mina Dominguez PA-C RADIOLOGY documented in this encounter Visit Diagnoses Diagnosis Achalasia, esophageal Achalasia and cardiospasm documented in this encounter Care Teams Track Repairer Relationship Specialty Start Date End Date Riccardo Robledo MD [address] [place] [address] PCP - General Internal Medicine 12/28/19 Olga Ochoa MD [address] [place] [address] Specialist Lung Cancer Superintendent Concrete Mixing Plant 03/07/21 Mina Dominguez PA-C 299 [facility] [address] [place] [address] Specialist Thoracic Surgery 04/29/22 Addison Winslow PA-C 175 [facility] [address] [place] [address] Specialist Neurosurgery 05/02/23 June Denton PA-C 175 [facility] [address] [place] [address] Specialist Neurosurgery 05/02/23 Nichole Otto MD 175 [facility] [address] [place] [address] Surgeon Neurosurgery 05/02/23 documented as of this encounter
--- OUTSIDE RECORDS SUMMARY | 2024-11-29 13:04 | XMS_ITS | Encounter Summary ---
Author Organization [facility] Address [address] [place] [address] Care Team Providers Care Blanking Press Operator Name Role Phone Riccardo Robledo MD Primary Care Provider [phone] Olga Ochoa MD Unavailable Mina Dominguez-C Unavailable Addison Winslow-C Unavailable June Denton PA-C Unavailable Nichole Otto MD Unavailable [phone] Encounter Details Date Type Department Care Team Description 08/11/2023 Pt. Non Urgent Medic al Question Adult Medicine - [place] [address] [place] [address] Riccardo Robledo MD 230 [place] [address] Social History Tobacco Use Types Packs/Day Years [...] Encounter - Valerie Edwards L.P.N. - 08/11/2023 4:26 PM EDTFrom: Jv Davila: Will Robledo Sent: 08/11/2023 4:25 PM EDT Subject: Blood pressure DR Sky Blackwell took the blood pressure for the third time at 418pm it was 128 over 80 pulse 70 documented in this encounter Plan of Treatment Not on file documented as of this encounter Visit Diagnoses Not on filedocumented in this encounter Care Teams Blanking Press Operator Relationship Specialty Start Date End Date Riccardo Robledo MD [address] [place] [address] PCP - General Internal Medicine 12/28/19 Olga Ochoa MD 230 [place] [address] Specialist Lung Cancer Traffic Circuit Engineer 03/07/21 Mina Dominguez PA-C [address] [phone] Specialist Thoracic Surgery 04/29/22 Addison Winslow PA-C 175 [facility] [address] [place] [address] Specialist Neurosurgery 05/02/23 June Denton PA-C 175 [facility] [address] [place] [address] Specialist Neurosurgery 05/02/23 Nichole Otto MD 175 [facility] [address] [place] [address] Surgeon Neurosurgery 05/02/23 documented as of this encounter
--- OUTSIDE RECORDS SUMMARY | 2024-11-29 13:04 | XMS_ITS | Encounter Summary ---
Author Organization [facility] Address [address] [place] [address] Care Team Providers Care Die Set Up Worker Name Role Phone Riccardo Robledo MD Primary Care Provider Olga Ochoa MD Unavailable Mina Dominguez-C Unavailable [phone] Addison WinslowC Unavailable [phone] June Denton PA-C Unavailable [phone] Nichole Otto MD Unavailable [phone] Encounter Details Date Type Department Care Team Description 05/09/2022 [facility] [address] [place] [address] Wilmar Beal MD Social History Tobacco Use [...] filedocumented in this encounter Care Teams Die Set Up Worker Relationship Specialty Start Date End Date Riccardo Robledo MD [address] [place] [address] PCP - General Internal Medicine 12/28/19 Olga Ochoa MD [address] [place] [address] Specialist Lung Cancer Factory Engineer 03/07/21 Mina Dominguez PA-C 299 [facility] [address] [place] [phone] Specialist Thoracic Surgery 04/29/22 Addison Winslow PA-C 175 [facility] [address] [place] [address] Specialist Neurosurgery 05/02/23 June Denton PA-C 175 [facility] [address] [place] [address] Specialist Neurosurgery 05/02/23 Nichole Otto MD 175 [facility] [address] [place] [address] Surgeon Neurosurgery 05/02/23 documented as of this encounter
--- OUTSIDE RECORDS SUMMARY | 2024-11-29 13:04 | XMS_ITS | Encounter Summary ---
Author Organization [facility] Address [address] [place] [address] Care Team Providers Care Quality Measurement Specialist Name Role Phone Riccardo Robledo MD Primary Care Provider [phone] Olga Ochoa MD Unavailable Mina Dominguez-C Unavailable Addison Winslow-C Unavailable June Denton PA-C Unavailable Nichole Otto MD Unavailable [phone] Encounter Details Date Type Department Care Team Description 06/30/2023 Pt. Non Urgent Medic al Question Adult Medicine - [place] [address] [place] [address] Riccardo Robledo MD [address] [place] [address] Social History Tobacco Use Types Packs/Day Years [...] Encounter - Mary Austin L.P.N. - 06/30/2023 10:35 AM EDT From: Jv Monroy To: Will Robledo Sent: 06/30/2023 9:55 AM EDT Subject: Blood work DR Swanson could you look at my blood. Work that Byron ordered and tell my results or do I have to worry about it Thank you [email or web address] documented in this encounter Plan of Treatment Not on file documented as of this encounter Visit Diagnoses Not on filedocumented in this encounter Care Teams Quality Measurement Specialist Relationship Specialty Start Date End Date Riccardo Robledo MD [address] [place] [address] PCP - General Internal Medicine 12/28/19 Olga Ochoa MD [address] [place] [address] Specialist Lung Cancer Social Work Administrator 03/07/21 Mina Dominguez PA-C 299 [facility] [address] [place] [address] Specialist Thoracic Surgery 04/29/22 Addison Winslow PA-C 175 [facility] [address] [place] [address] Specialist Neurosurgery 05/02/23 June Denton PA-C 175 [facility] [address] [place] [address] Specialist Neurosurgery 05/02/23 Nichole Otto MD 175 [facility] [address] [place] [address] Surgeon Neurosurgery 05/02/23 documented as of this encounter
--- OUTSIDE RECORDS SUMMARY | 2024-11-29 13:04 | XMS_ITS | Encounter Summary ---
Author Organization [facility] Address [address] [place] [address] Care Team Providers Care Logistician Name Role Phone Riccardo Robledo MD Primary Care Provider Olga Ochoa MD Unavailable Mina Dominguez PA-C Unavailable [phone] Addison Winslow PA-C Unavailable June Denton-C Unavailable [phone] Nichole Otto MD Unavailable [phone] Reason for Visit * Reason Onset Date Comments TEST RESULTS 09/27/2022 Encounter Details Date Type Department Care Team Description 09/27/2022 Telephone Adult Medicine - [place] [address] [place], [place] [id number] Riccardo Robledo MD 230 [place], [place] [address] TEST RESULTS Social History Tobacco Use Types [...] * Telephone Encounter - Audrey Hakan - 09/27/2022 4:25 PM EDT Pt is looking for a call back today please advise * Telephone Encounter - Reina Hendricks - 09/27/2022 2:43 PM EDT Pt calling in says he received his most recent labs and says he does not understand what any of it means, pt requesting call back to discuss these results. documented in this encounter Plan of Treatment Not on file documented as of this encounter Visit Diagnoses Not on filedocumented in this encounter Care Teams Logistician Relationship Specialty Start Date End Date Riccardo Robledo MD 230 [place] [address] PCP - General Internal Medicine 12/28/19 Olga Ochoa MD 230 [place] [address] Specialist Lung Cancer Pocket And Pulley Machine Operator 03/07/21 Mina Dominguez PA-C 299 [facility] 410 [place] [address] Specialist Thoracic Surgery 04/29/22 Addison Winslow PA-C 175 [facility] [address] [place] [address] Specialist Neurosurgery 05/02/23 June Denton PA-C 175 [facility] 300 [place] [address] Specialist Neurosurgery 05/02/23 Nichole Otto MD [address] [address] Surgeon Neurosurgery 05/02/23 documented as of this encounter
--- OUTSIDE RECORDS SUMMARY | 2024-11-29 13:04 | XMS_ITS | Encounter Summary ---
Author Organization [facility] Address [address] [place] [address] Care Team Providers Care Spa Coordinator Name Role Phone Riccardo Robledo MD Primary Care Provider [phone] Olga Ochoa MD Unavailable Mina Dominguez PA-C Unavailable Addison Winslow PA-C Unavailable [phone] June Denton PA-C Unavailable Nichole tOto MD Unavailable [phone] Reason for Visit * Reason Comments E-prescribe Rx Request Encounter Details Date Type Department Care Team Description 08/25/2023 Refill Adult Medicine - [address] [address] Logan Romero PA-C [address] [place] [address] E-prescribe Rx Request Social History Tobacco Use [...] on filedocumented in this encounter Care Teams Spa Coordinator Relationship Specialty Start Date End Date Riccardo Robledo MD 230 [place] [address] PCP - General Internal Medicine 12/28/19 Olga Ochoa MD 230 [place] [address] Specialist Lung Cancer Dump Truck Operator 03/07/21 Mina Dominguez PA-C 299 [facility] 410 [place] [address] Specialist Thoracic Surgery 04/29/22 Addison Winslow PA-C [address] [address] Specialist Neurosurgery 05/02/23 June Denton PA-C [address] [address] Specialist Neurosurgery 05/02/23 Nichole Otto MD 175 [facility] [address] [place] [address] Surgeon Neurosurgery 05/02/23 documented as of this encounter
--- OUTSIDE RECORDS SUMMARY | 2024-11-29 13:04 | XMS_ITS | Encounter Summary ---
Author Organization [facility] Address [address] [place] [address] Care Team Providers Care Lead Systems Engineer Name Role Phone Riccardo Robledo MD Primary Care Provider [phone] Olga Ochoa MD Unavailable Mina Dominguez PA-C Unavailable Addison Winslow PA-C Unavailable June Denton PA-C Unavailable [phone] Nichole Otto MD Unavailable [phone] Encounter Details Date Type Department Care Team Description 07/01/2022 Orders Only [facility] Lung Screening Program [address] [address] Olga Ochoa MD 299 [facility] [address] [place] [address] [id number] History of tobacco abuse Social History Tobacco [...] CT LOW DOSE LUNG SCREEN ANNUAL Routine 06/24/2022 History of tobacco abuse documented in this encounter Results * CT LOW DOSE LUNG SCREEN ANNUAL (06/24/2022) Olga Ochoa MD CT SCANS documented in this encounter Visit Diagnoses Diagnosis History of tobacco abuse Personal history of tobacco use, presenting hazards to health documented in this encounter Care Teams Lead Systems Engineer Relationship Specialty Start Date End Date Riccardo Robledo MD 230 [place] [address] PCP - General Internal Medicine 12/28/19 Olga Ochoa MD 230 [place] [address] Specialist Lung Cancer Circus Agent 03/07/21 Mina Dominguez PA-C 299 [facility] 410 [place] [address] Specialist Thoracic Surgery 04/29/22 Addison Winslow PA-C 175 [facility] [address] [place] [address] Specialist Neurosurgery 05/02/23 June Denton PA-C 175 [facility] [address] [place] [address] Specialist Neurosurgery 05/02/23 Nichole Otto MD 175 [facility] [address] [place] [address] Surgeon Neurosurgery 05/02/23 documented as of this encounter
--- OUTSIDE RECORDS SUMMARY | 2024-11-29 13:04 | XMS_ITS | Encounter Summary ---
Author Organization [facility] Address [address] [place] [address] Care Team Providers Care Drug Abuse Technician Name Role Phone Riccardo Robledo MD Primary Care Provider [phone] Olga Ochoa MD Unavailable Mina Dominguez PA-C Unavailable Addison Winslow PA-C Unavailable June Denton PA-C Unavailable Nichole Otto MD Unavailable [phone] Encounter Details Date Type Department Care Team Description 08/20/2022 Telephone Adult Medicine - [address] [address] Logan Romero PA-C [address] [place] [address] Social History Tobacco Use Types Packs/Day Years [...] Telephone Encounter - Kenzie Beckett M.A. - 08/20/2022 1:17 PM EDT Spoke to Cris at Dr Crews[facility] and they will fax the records. * Telephone Encounter - Logan Romero PA-C - 08/20/2022 12:19 PM EDT Please request office notes and imaging studies from Dr. Crews, vascular surgeon. Thank you documented in this encounter Plan of Treatment Not on file documented as of this encounter Visit Diagnoses Not on filedocumented in this encounter Care Teams Drug Abuse Technician Relationship Specialty Start Date End Date Riccardo Robledo MD 230 [place] [address] PCP - General Internal Medicine 12/28/19 lOga Ochoa MD 230 [place] [address] Specialist Lung Cancer Health And Nutrition Specialist 03/07/21 Mina Dominguez PA-C 299 [facility] 410 [place] [address] Specialist Thoracic Surgery 04/29/22 Addison Winslow PA-C 175 [facility] [address] [place] [address] Specialist Neurosurgery 05/02/23 June Denton PA-C 175 [facility] 300 [place] [address] Specialist Neurosurgery 05/02/23 Nichole Otto MD [address] [facility] [address] [place] [address] Surgeon Neurosurgery 05/02/23 documented as of this encounter
--- OUTSIDE RECORDS SUMMARY | 2024-11-29 13:04 | XMS_ITS | Encounter Summary ---
Author Organization [facility] Address [address] [place] [address] Care Team Providers Care Councilman Name Role Phone Riccardo Robledo MD Primary Care Provider [phone] Olga Ochoa MD Unavailable Mina DominguezC Unavailable Addison Winslow PA-C Unavailable June Denton PA-C Unavailable [phone] Nichole Otto MD Unavailable [phone] Encounter Details Date Type Department Care Team Description 06/30/2023 Defense Analyst Report Medical Records [address] [place] [address] [facility] [address] [place] [address] Social History Tobacco Use Types Packs/Day Years [...] on filedocumented in this encounter Care Teams Councilman Relationship Specialty Start Date End Date Riccardo Robledo MD 230 [place] [address] PCP - General Internal Medicine 12/28/19 Olga Ochoa MD 230 [place] [address] Specialist Lung Cancer Litigation Paralegal 03/07/21 Mina Dominguez PA-C [address] [address] Specialist Thoracic Surgery 04/29/22 Addison Winslow PA-C 175 [facility] [address] [place] [address] Specialist Neurosurgery 05/02/23 June Denton PA-C [address] [address] Specialist Neurosurgery 05/02/23 Nichole Otto MD 175 [facility] 300 [place] [address] Surgeon Neurosurgery 05/02/23 documented as of this encounter
--- OUTSIDE RECORDS SUMMARY | 2024-11-29 13:04 | XMS_ITS | Encounter Summary ---
Author Organization [facility] Address [address] [place] [address] Care Team Providers Care Forest Ranger Name Role Phone Riccardo Robledo MD Primary Care Provider [phone] Olga Ochoa MD Unavailable Mina Dominguez-C Unavailable [phone] Addison Winslow-Will Unavailable June Denton PA-C Unavailable [phone] Nichole Otto MD Unavailable [phone] Encounter Details Date Type Department Care Team Description 08/29/2023 Pt. Non Urgent Medic al Question Adult Medicine - [place] [address] [place] [address] Riccardo Robledo MD 230 [place] [address] Social History Tobacco Use Types Packs/Day Years [...] on filedocumented in this encounter Care Teams Forest Ranger Relationship Specialty Start Date End Date Riccardo Robledo MD 230 [place] [address] PCP - General Internal Medicine 12/28/19 Olga Ochoa MD 230 [place] [address] Specialist Lung Cancer Coal Passer 03/07/21 Mina Dominguez PA-C 299 [facility] 410 [place] [address] Specialist Thoracic Surgery 04/29/22 Addison Winslow PA-C 175 [facility] [address] [place] [address] Specialist Neurosurgery 05/02/23 June Denton PA-C 175 [facility] 300 [place] [address] Specialist Neurosurgery 05/02/23 Nichole Otto MD 175 [facility] 300 [place] [address] Surgeon Neurosurgery 05/02/23 documented as of this encounter
--- OUTSIDE RECORDS SUMMARY | 2024-11-29 13:04 | XMS_ITS | Encounter Summary ---
Author Organization [facility] Address [address] [place] [address] Care Team Providers Care Foreign Language Teacher Name Role Phone Riccardo Robledo MD Primary Care Provider [phone] Olga Ochoa MD Unavailable Mina Dominguez PA-C Unavailable Addison Winslow PA-C Unavailable [phone] June Denton-Will Unavailable Nichole Otto MD Unavailable [phone] Encounter Details Date Type Department Care Team Description 06/27/2023 Telephone Adult Medicine - [place] [address] [place], [place] [phone] Riccardo Robledo MD [address] [place], [place] [id number] Social History Tobacco Use Types Packs/Day Years [...] done over the phone with Emelia from [employer] for the oxycodone solution Dx codes G89.4 Chronic pain syndrome M54.12 cervical radiculopathy M25.512 left shoulder pain Needs liquid Because of K22.2 Continuation of therapy \ Trials Acetaminophen Morphine sulfate Naproxen Meloxicam Ibuprofen Tizanidine Lyrica Celebrex diclofenac documented in this encounter Plan of Treatment Not on file documented as of this encounter Visit Diagnoses Not on filedocumented in this encounter Care Teams Foreign Language Teacher Relationship Specialty Start Date End Date Riccardo Robledo MD [address] [place] [address] PCP - General Internal Medicine 12/28/19 Olga Ochoa MD 230 [place] [address] Specialist Lung Cancer Engineering Administrator 03/07/21 Mina Dominguez PA-C 299 [facility] 410 [place] [address] Specialist Thoracic Surgery 04/29/22 Addison Winslow PA-C 175 [facility] [address] [place] [address] Specialist Neurosurgery 05/02/23 June Denton PA-C [address] [address] Specialist Neurosurgery 05/02/23 Nichole Otto MD [address] [address] Surgeon Neurosurgery 05/02/23 documented as of this encounter
--- OUTSIDE RECORDS SUMMARY | 2024-11-29 13:04 | XMS_ITS | Encounter Summary ---
Author Organization [facility] Address [address] [place] [address] Care Team Providers Care Stone Paver Name Role Phone Riccardo Robledo MD Primary Care Provider Olga Ochoa MD Unavailable Mina Dominguez PA-C Unavailable [phone] Addison Winslow PA-C Unavailable [phone] June Denton PA-C Unavailable [phone] Nichole Otto MD Unavailable [phone] Encounter Details Date Type Department Care Team Description 05/25/2020 Bench Molder Report Medical Records [address] [place] [address] Richie Alba MD, PHD Social History Tobacco [...] on filedocumented in this encounter Care Teams Stone Paver Relationship Specialty Start Date End Date Riccardo Robledo MD 230 [place] [address] PCP - General Internal Medicine 12/28/19 Olga Ochoa MD 230 [place] [address] Specialist Lung Cancer Technicians And Trades Workers 03/07/21 Mina Dominguez PA-C 299 [facility] 410 [place] [address] Specialist Thoracic Surgery 04/29/22 Addison Winslow PA-C 175 [facility] [address] [place] [address] Specialist Neurosurgery 05/02/23 June Denton PA-C 175 [facility] 300 [place] [address] Specialist Neurosurgery 05/02/23 Nichole Otto MD 175 [facility] 300 [place] [address] Surgeon Neurosurgery 05/02/23 documented as of this encounter
--- OUTSIDE RECORDS SUMMARY | 2024-11-29 13:04 | XMS_ITS | Encounter Summary ---
Author Organization [facility] Address [address] [place] [address] Care Team Providers Care Check Writing Machine Operator Name Role Phone Riccardo Robledo MD Primary Care Provider [phone] Olga Ochoa MD Unavailable Mina Dominguez PA-C Unavailable [phone] Addison Winslow PA-C Unavailable June Denton PA-C Unavailable Nichole Otto MD Unavailable [phone] Encounter Details Date Type Department Care Team Description 08/13/2023 Pt. Non Urgent Medical Question [facility] 175 [facility] [address] [place] [address] Akin Delacruz MD 175 [facility] [address] [place], [place] [phone] Social History Tobacco Use Types Packs/Day Years [...] on filedocumented in this encounter Care Teams Check Writing Machine Operator Relationship Specialty Start Date End Date Riccardo Robledo MD 230 [place] [address] PCP - General Internal Medicine 12/28/19 Olga Ochoa MD 230 [place] [address] Specialist Lung Cancer Gun Perforator Loader 03/07/21 Mina Dominguez PA-C [address] [address] Specialist Thoracic Surgery 04/29/22 Addison Winslow PA-C 175 [facility] 300 [place] [address] Specialist Neurosurgery 05/02/23 June Denton PA-C [address] [address] Specialist Neurosurgery 05/02/23 Nichole Otto MD [address] [address] Surgeon Neurosurgery 05/02/23 documented as of this encounter
--- OUTSIDE RECORDS SUMMARY | 2024-11-29 13:04 | XMS_ITS | Encounter Summary ---
Author Organization [facility] Address [address] [place] [address] Care Team Providers Care Senior Financial Accountant Name Role Phone Riccardo Robledo MD Primary Care Provider [phone] Olga Ochoa MD Unavailable Mina Dominguez PA-C Unavailable [phone] Addison Winslow PA-C Unavailable June Denton PA-C Unavailable Nichole Otto MD Unavailable [phone] Encounter Details Date Type Department Care Team Description 07/30/2021 Refill Adult Medicine - [address] [address] Logan Romero PA-C [address] [place] [address] Social History Tobacco Use Types Packs/Day Years [...] filedocumented in this encounter Care Teams Senior Financial Accountant Relationship Specialty Start Date End Date Riccardo Robledo MD 230 [place] [address] PCP - General Internal Medicine 12/28/19 Olga Ochoa MD 230 [place] [address] Specialist Lung Cancer Renewable Energy Trader 03/07/21 Mina Dominguez PA-C 299 [facility] 410 [place] [address] Specialist Thoracic Surgery 04/29/22 Addison Winslow PA-C 175 [facility] 300 [place] [address] Specialist Neurosurgery 05/02/23 June Denton PA-C 175 [facility] 300 [place] [address] Specialist Neurosurgery 05/02/23 Nichole Otto MD [address] [address] Surgeon Neurosurgery 05/02/23 documented as of this encounter
--- OUTSIDE RECORDS SUMMARY | 2024-11-29 13:04 | XMS_ITS | Encounter Summary ---
Author Organization [facility] Address [address] [place] [address] Care Team Providers Care Scraper Operator Name Role Phone Riccardo Robledo MD Primary Care Provider [phone] Olga Ochoa MD Unavailable Mina Dominguez PA-C Unavailable Addison Winslow PA-C Unavailable June Denton PA-C Unavailable Nichole Otto MD Unavailable [phone] Encounter Details Date Type Department Care Team Description 07/13/2021 [facility] [address] [address] Mina Eckert DPM [address] [phone] Social History Tobacco Use Types Packs/Day Years [...] suspected to have Coronavirus/COVID-19? No / Unsure 07/11/2021 9:00 AM EDT documented as of this encounter Plan of Treatment Not on file documented as of this encounter Visit Diagnoses Not on filedocumented in this encounter Care Teams Scraper Operator Relationship Specialty Start Date End Date Riccardo Robledo MD 230 [place] [address] PCP - General Internal Medicine 12/28/19 Olga Ochoa MD 230 [place] [address] Specialist Lung Cancer Supervisory Training Specialist 03/07/21 Mina Dominguez PA-C [address] [phone] Specialist Thoracic Surgery 04/29/22 Addison Winslow PA-C 175 [facility] [address] [place] [address] Specialist Neurosurgery 05/02/23 June Denton PA-C 175 [facility] [address] [place] [address] Specialist Neurosurgery 05/02/23 Nichole Otto MD 175 [facility] 300 [place] [address] Surgeon Neurosurgery 05/02/23 documented as of this encounter
--- OUTSIDE RECORDS SUMMARY | 2024-11-29 13:04 | XMS_ITS | Encounter Summary ---
Author Organization [facility] Address [address] [place] [address] Care Team Providers Care Track Repairer Name Role Phone Riccardo Robledo MD Primary Care Provider [phone] Olga Ochoa MD Unavailable Mina Dominguez PA-C Unavailable Addison Winslow PA-C Unavailable June Denton-Will Unavailable Nichole Otto MD Unavailable [phone] Encounter Details Date Type Department Care Team Description 06/30/2023 Environmental Aid Report Medical Records [address] [place] [address] Johnathan Cerda MD Social History Tobacco Use [...] on filedocumented in this encounter Care Teams Track Repairer Relationship Specialty Start Date End Date Riccardo Robledo, 230 [place] [address] PCP - General Internal Medicine 12/28/19 Olga Ochoa MD 230 [place] [address] Specialist Lung Cancer Business Analyst Ecommerce 03/07/21 Mina Dominguez PA-C 299 [facility] 410 [place] [address] Specialist Thoracic Surgery 04/29/22 Addison Winslow PA-C 175 [facility] [address] [place] [address] Specialist Neurosurgery 05/02/23 June Denton PA-C 175 [facility] 300 [place] [address] Specialist Neurosurgery 05/02/23 Nichole Otto MD 175 [facility] 300 [place] [address] Surgeon Neurosurgery 05/02/23 documented as of this encounter
--- OUTSIDE RECORDS SUMMARY | 2024-11-29 13:04 | XMS_ITS | Encounter Summary ---
Author Organization [facility] Address [address] [place] [address] Care Team Providers Care Streetcar Operator Name Role Phone Riccardo Robledo MD Primary Care Provider [phone] Olga Ochoa MD Unavailable Mina Dominguez PA-C Unavailable [phone] Addison Winslow-C Unavailable June Denton-Will Unavailable Nichole Otto MD Unavailable [phone] Encounter Details Date Type Department Care Team Description 07/02/2021 Refill Adult Medicine - [place] [address] [place], [place] [phone] Riccardo Robledo MD 230 [place], [place] [phone] Social History Tobacco Use Types Packs/Day Years [...] original note were not included. Please review AIRCRAFT INSTRUMENT MECHANIC Patient has been receiving Lyrica 50 mg from and 25 mg from us. Still has 2 refills remaining on file from RX 04/11/21 documented in this encounter Plan of Treatment Not on file documented as of this encounter Visit Diagnoses Not on filedocumented in this encounter Care Teams Streetcar Operator Relationship Specialty Start Date End Date Riccardo Robledo MD 230 [place] [address] PCP - General Internal Medicine 12/28/19 Olga Ochoa MD 230 [place] [address] Specialist Lung Cancer Director Of Institutional Sales 03/07/21 Mina Dominguez PA-C 299 [facility] [address] [place] [address] Specialist Thoracic Surgery 04/29/22 Addison Winslow PA-C 175 [facility] [address] [place] [address] Specialist Neurosurgery 05/02/23 June Denton PA-C 175 [facility] [address] [place] [address] Specialist Neurosurgery 05/02/23 Nichole Otto MD [address] [address] Surgeon Neurosurgery 05/02/23 documented as of this encounter
--- OUTSIDE RECORDS SUMMARY | 2024-11-29 13:05 | XMS_ITS | Encounter Summary ---
Author Organization [facility] Address [address] [place] [address] Care Team Providers Care Instructor Of Spanish Name Role Phone Riccardo Robledo MD Primary Care Provider [phone] Olga Ochoa MD Unavailable Mina Dominguez-C Unavailable Addison Winslow-Will Unavailable [phone] June Denton PA-C Unavailable Nichole Otto MD Unavailable [phone] Reason for Visit * Reason Onset Date Comments Medication 06/06/2021 Encounter Details Date Type Department Care Team Description 06/06/2021 Telephone [facility] Thoracic Surgery [place] 299 [facility] [address] [place] [phone] Olga Ochoa MD 299 [facility] [address] [place], [place] [phone] Medication Social History Tobacco Use Types Packs/Day [...] on filedocumented in this encounter Care Teams Instructor Of Spanish Relationship Specialty Start Date End Date Riccardo Robledo MD 230 [place] [address] PCP - General Internal Medicine 12/28/19 Olga Ochoa MD 230 [place] [address] Specialist Lung Cancer Geophysical Data Technician 03/07/21 Mina Dominguez PA-C [address] [phone] Specialist Thoracic Surgery 04/29/22 Addison Winslow PA-C 175 [facility] [address] [place] [address] Specialist Neurosurgery 05/02/23 June Denton PA-C 175 [facility] [address] [place] [address] Specialist Neurosurgery 05/02/23 Nichole Otto MD 175 [facility] 300 [place] [address] Surgeon Neurosurgery 05/02/23 documented as of this encounter
--- OUTSIDE RECORDS SUMMARY | 2024-11-29 13:05 | XMS_ITS | Encounter Summary ---
Author Organization [facility] Address [address] [place] [address] Care Team Providers Care Gold Burnisher Name Role Phone Riccardo Robledo MD Primary Care Provider Olga Ochoa MD Unavailable Mina Dominguez PA-C Unavailable Addison Winslow PA-C Unavailable June Denton-Will Unavailable [phone] Nichole Otto MD Unavailable [phone] Reason for Visit * Reason Onset Date Comments medication problems 06/07/2021 Encounter Details Date Type Department Care Team Description 06/07/2021 Telephone Adult Medicine - [place] [address] [place], [place] [id number] Riccardo Robledo MD [address] [place], [place] [id number] medication problems Social History Tobacco Use Types [...] Telephone Encounter - Mireya Figueroa M.A. - 06/07/2021 11:34 AM EDT Images from the original note were not included. See telephone encounter from Thoracic Surgery * Telephone Encounter - Karen Guido - 06/07/2021 11:19 AM EDT Who is calling? The patient Name of the medication Oxycodone What is the specific problem or interaction? Pt is getting these from the thorasic surgeon and pt states that he needs the 10 mg tabs not 5mg. He doesn't knoiw why they would change this and wants toknow the reasoning. Please advise If the patient is having a problem with taking the med - how long has the problem been going on? N/A documented in this encounter Plan of Treatment Not on file documented as of this encounter Visit Diagnoses Not on filedocumented in this encounter Care Teams Gold Burnisher Relationship Specialty Start Date End Date Riccardo Robledo MD [address] [place] [address] PCP - General Internal Medicine 12/28/19 Olga Ochoa MD 230 [place] [address] Specialist Lung Cancer Pecan Sheller 03/07/21 Mina Dominguez PA-C 299 [facility] [address] [place] [address] Specialist Thoracic Surgery 04/29/22 Addison Winslow PA-C 175 [facility] [address] [place] [address] Specialist Neurosurgery 05/02/23 June Denton PA-C [address] [address] Specialist Neurosurgery 05/02/23 Nichole Otto MD [address] [id number] Surgeon Neurosurgery 05/02/23 documented as of this encounter
--- OUTSIDE RECORDS SUMMARY | 2024-11-29 13:05 | XMS_ITS | Encounter Summary ---
Author Organization [facility] [place] Address [address] [place] [address] Care Team Providers Care Regional Marketing Director Name Role Phone Riccardo Robledo MD Primary Care Provider [phone] Olga Ochoa MD Unavailable Mina Dominguez-C Unavailable Addison Winslow-C Unavailable June Denton-Will Unavailable Nichole Otto MD Unavailable [phone] Encounter Details Date Type Department Care Team Description 06/24/2022 Pt. Non Urgent Medic al Question Adult Medicine - [place] [address] [place] [address] Riccardo Robledo MD 230 [place] [address] Social History Tobacco Use Types Packs/Day Years [...] Swanson did you send my script to [facility] pharmacy my both pain medicine please respond tanmay due forit documented in this encounter Plan of Treatment Not on file documented as of this encounter Visit Diagnoses Not on filedocumented in this encounter Care Teams Regional Marketing Director Relationship Specialty Start Date End Date Riccardo Robledo MD [address] [place] [address] PCP - General Internal Medicine 12/28/19 Olga Ochoa MD 230 [place] [address] Specialist Lung Cancer Industrial Chemist 03/07/21 Mina Dominguez PA-C [address] [address] Specialist Thoracic Surgery 04/29/22 Addison Winslow PA-C 175 [facility] [address] [place] [address] Specialist Neurosurgery 05/02/23 June Denton PA-C 175 [facility] [address] [place] [address] Specialist Neurosurgery 05/02/23 Nichole Otto MD [address] [address] Surgeon Neurosurgery 05/02/23 documented as of this encounter
--- OUTSIDE RECORDS SUMMARY | 2024-11-29 13:05 | XMS_ITS | Encounter Summary ---
Author Organization [facility] Address [address] [place] [address] Care Team Providers Care Mix House Tender Name Role Phone Riccardo Robledo MD Primary Care Provider Olga Ochoa MD Unavailable Mina Dominguez PA-C Unavailable Addison Winslow PA-C Unavailable June Denton-Will Unavailable Nichole Otto MD Unavailable [phone] Reason for Visit * Reason Onset Date Comments medication problems 06/13/2021 Encounter Details Date Type Department Care Team Description 06/13/2021 Telephone Adult Medicine - [place] [address] [place], [place] [phone] Riccardo Robledo MD [address] [place], [place] [phone] medication problems Social History Tobacco Use Types [...] Telephone Encounter - Mireya Figueroa M.A. - 06/13/2021 10:44 AM EDT Okay, noted Thank you * Telephone Encounter - Riccardo Robledo MD - 06/13/2021 10:40 AM EDT Spoke to patient today at his mother's visit with me I also spoke to the pharmacist. The prescription from the surgeon has been canceled. That is the 10 mg tablets by the pharmacist and he will only be getting prescriptions from me from now on. So surgery should no longer be concerned about his pain management * Telephone Encounter - Mireya Figueroa M.A. - 06/13/2021 10:38 AM EDT Please see message below * Telephone Encounter - Mireya Figueroa M.A. - 06/13/2021 10:34 AM EDT Images from the original note were not included. Gloria , from [facility] Surgery department called PCP office stating patient had called them requesting a prescription for Oxycodone PCP sent Oxycodone liquid solution 06/13/21 And a prescription for Oxycodone 10 mg was sent by Mina Dominguez PA-C 06/13/21. Patient cannot be calling PCP office and [facility] Surgery office for Controlled Narcotic Refills. Gloria states patient was all excited to be receiving pain medication from them and was advised this was not going to be continious they just prescribe after surgery and that is it. See encounter 06/06/21 documented in this encounter Plan of Treatment Not on file documented as of this encounter Visit Diagnoses Not on filedocumented in this encounter Care Teams Mix House Tender Relationship Specialty Start Date End Date Riccardo Robledo MD [address] [place] [address] PCP - General Internal Medicine 12/28/19 Olga Ochoa MD 230 [place] [address] Specialist Lung Cancer Senior Project Manager 03/07/21 Mina Dominguez PA-C [address] [phone] Specialist Thoracic Surgery 04/29/22 Addison Winslow PA-C 175 [facility] 300 [place] [address] Specialist Neurosurgery 05/02/23 June Denton PA-C 175 [facility] 300 [place] [address] Specialist Neurosurgery 05/02/23 Nichole Otto MD [address] [address] Surgeon Neurosurgery 05/02/23 documented as of this encounter
--- OUTSIDE RECORDS SUMMARY | 2024-11-29 13:05 | XMS_ITS | Encounter Summary ---
Author Organization [facility] Address [address] [place] [address] Care Team Providers Care Grain Mixer Name Role Phone Riccardo Robledo MD Primary Care Provider Olga Ochoa MD Unavailable Mina Dominguez PA-C Unavailable Addison Winslow PA-C Unavailable June Denton-Will Unavailable Nichole Otto MD Unavailable [phone] Reason for Visit * Reason Onset Date Comments refill request 06/13/2021 Encounter Details Date Type Department Care Team Description 06/13/2021 Telephone Adult Medicine - [place] [address] [place], [place] [phone] Riccardo Robledo MD 230 [place] [address] refill request Social History Tobacco Use Types [...] filedocumented in this encounter Care Teams Grain Mixer Relationship Specialty Start Date End Date Riccardo Robledo MD 230 [place] [address] PCP - General Internal Medicine 12/28/19 Olga Ochoa MD 230 [place] [address] Specialist Lung Cancer Barrel Bung Remover And Dumper 03/07/21 Mina Dominguez PA-C 299 [facility] [address] [place] [address] Specialist Thoracic Surgery 04/29/22 Addison Winslow PA-C 175 [facility] [address] [place] [address] Specialist Neurosurgery 05/02/23 June Denton PA-C 175 [facility] [address] [place] [address] Specialist Neurosurgery 05/02/23 Nichole Otto MD 175 [facility] [address] [place] [address] Surgeon Neurosurgery 05/02/23 documented as of this encounter
--- OUTSIDE RECORDS SUMMARY | 2024-11-29 13:05 | XMS_ITS | Encounter Summary ---
Author Organization [facility] Address [address] [place] [address] Care Team Providers Care Support Representative Name Role Phone Riccardo Robledo MD Primary Care Provider Olga Ochoa MD Unavailable Mina Dominguez PA-C Unavailable Addison Winslow PA-C Unavailable June Denton-C Unavailable Nichole Otto MD Unavailable [phone] Reason for Visit * Reason Onset Date Comments Provider Call Back 06/08/2021 Encounter Details Date Type Department Care Team Description 06/08/2021 Telephone Adult Medicine - [place] [address] [place], [place] [phone] Riccardo Robledo MD [address] [place] [address] Provider Call Back Social History Tobacco Use [...] filedocumented in this encounter Care Teams Support Representative Relationship Specialty Start Date End Date Riccardo Robledo MD [address] [place] [address] PCP - General Internal Medicine 12/28/19 Olga Ochoa MD 230 [place] [address] Specialist Lung Cancer Calender Supervisor 03/07/21 Mina Dominguez PA-C 299 [facility] 410 [place] [address] Specialist Thoracic Surgery 04/29/22 Addison Winslow PA-C 175 [facility] [address] [place] [address] Specialist Neurosurgery 05/02/23 June Denton PA-C 175 [facility] 300 [place], [place] [phone] Specialist Neurosurgery 05/02/23 Nichole Otto MD 175 [facility] [address] [place], [place] [phone] Surgeon Neurosurgery 05/02/23 documented as of this encounter
--- OUTSIDE RECORDS SUMMARY | 2024-11-29 13:05 | XMS_ITS | Encounter Summary ---
Author Organization [facility] Address [address] [place] [address] Care Team Providers Care Circus Train Supervisor Name Role Phone Riccardo Robledo MD Primary Care Provider [phone] Olga Ochoa MD Unavailable Mina Dominguez-C Unavailable [phone] Addison Winslow-C Unavailable [phone] June Denton-Will Unavailable Nichole Otto MD Unavailable [phone] Encounter Details Date Type Department Care Team Description 06/24/2022 Pt. Non Urgent Medic al Question Adult Medicine - [place] [address] [place] [address] Riccardo Robledo MD [address] [place] [address] Social History Tobacco Use Types Packs/Day Years [...] Telephone Encounter - Mireya Figueroa M.A. - 06/25/2022 8:39 AM EDTFrom: Jv Monroy To: Will Robledo Sent: 06/24/2022 5:30 PM EDT Subject: Blood pressure Blood pressure reading 122over 71 pulse 66 520 pm on 06/24/22 at 515 pm blood pressure reading is 132over 75 pulse 71 on 06/24/22 blood pressure reading 138 over 80!, pulse 72 at 510 pm on 06/24/22 blood pressure reading 156 over 89 pulse [address] Swanson please read this from the bottom up thankyou DR Swanson F or [facility] Doctor documented in this encounter Plan of Treatment Not on file documented as of this encounter Visit Diagnoses Not on filedocumented in this encounter Care Teams Circus Train Supervisor Relationship Specialty Start Date End Date Riccardo Robledo MD [address] [place] [address] PCP - General Internal Medicine 12/28/19 Olga Ochoa MD [address] [place] [address] Specialist Lung Cancer Wind Energy Systems Installer 03/07/21 Mina Dominguez PA-C 299 [facility] [address] [place] [address] Specialist Thoracic Surgery 04/29/22 Addison Winslow PA-C 175 [facility] [address] [place] [address] Specialist Neurosurgery 05/02/23 June Denton PA-C [address] [address] Specialist Neurosurgery 05/02/23 Nichole Otto MD 175 [facility] 300 [place] [address] Surgeon Neurosurgery 05/02/23 documented as of this encounter
--- OUTSIDE RECORDS SUMMARY | 2024-11-29 13:05 | XMS_ITS | Encounter Summary ---
Author Organization [facility] Address [address] [place] [address] Care Team Providers Care Library Specialist Name Role Phone Riccardo Robledo MD Primary Care Provider [phone] Olga Ochoa MD Unavailable Mina Dominguez-C Unavailable [phone] Addison Winslow-C Unavailable June Denton PA-C Unavailable [phone] Nichole Otto MD Unavailable [phone] Encounter Details Date Type Department Care Team Description 06/13/2021 Orders Only Adult Medicine - [place] [address] [place] [address] Riccardo Robledo MD [address] [place], [place] [phone] Social History Tobacco Use Types Packs/Day Years [...] filedocumented in this encounter Care Teams Library Specialist Relationship Specialty Start Date End Date Riccardo Robledo MD 230 [place] [address] PCP - General Internal Medicine 12/28/19 Olga Ochoa MD 230 [place] [address] Specialist Lung Cancer Commercial Account Executive 03/07/21 Mina Dominguez PA-C 299 [facility] [address] [place] [phone] Specialist Thoracic Surgery 04/29/22 Addison Winslow PA-C [address] [address] Specialist Neurosurgery 05/02/23 June Denton PA-C 175 [facility] 300 [place] [address] Specialist Neurosurgery 05/02/23 Nichole Otto MD [address] [address] Surgeon Neurosurgery 05/02/23 documented as of this encounter
== END 2024-11-29 10:46 | disposition home or self-care (01) ==
LOC: HO.HMGAL 10:44
PROVIDERS: PCP Internal Medicine; Visit Provider Registered Nurse Emergency
DX: J30.89 Other allergic rhinitis (principal)
CPT/HCPCS: 95117; 95165

== ENCOUNTER 2024-12-02 09:10 | Outpatient (AMB) | payer MEDICARE, MEDICAID, SELFPAY ==
[2024-12-02 09:12] VITALS: BP 108/68; PULSE 67; BMI 25.6
--- NOTE | 2024-12-02 09:12 | A.OFFVIS_ITS ---
Vital Signs 12/02/24 09:12 Height 5 ft 7 in Weight 163 lb 9.328 oz BMI 25.6 BP 108/68 Blood Pressure Location Lt brachial Position Sitting Pulse 67 Pulse Source Monitor Intake Visit Reasons: 1 year follow up Cutter Head Sharpener Required: No Accompanied by: Self / Same As Patient Allergies metronidazole (From FLAGYL) Allergy (Severe, Verified 12/02/24 09:16) RASH tree and shrub pollen (TREE) Allergy (Severe, Verified 12/02/24 09:16) Rash dexamethasone Adverse Reaction (Severe, Verified 12/02/24 09:16) palpitatiions fluticasone furoate (Breo Ellipta) Adverse Reaction (Severe, Verified 12/02/24 09:16) palpitations, high BP umeclidinium (Incruse Ellipta) Adverse Reaction (Severe, Verified 12/02/24 09:16) palpitations Bee sting Allergy (Severe, Uncoded 01/30/24 09:48) Hives/Difficulty breathing Clindamycin HCl Allergy (Severe, Uncoded 01/30/24 09:48) Hives Medication List - Last Reconciled 12/02/24 by [facility] atorvastatin 20 mg PO DAILY 30 days cholecalciferol (vitamin D3) (Vitamin D3) epinephrine 0.3 mg IM famotidine 40 mg PO BID 90 days levalbuterol tartrate 45 mcg/actuation inhalation levalbuterol tartrate 45 mcg/actuation (Xopenex HFA) 2 puffs inhalation Q6H PRN 30 days levocetirizine 5 mg PO DIRECTED Magic Mouthwash Diphen/Lido/Antacid 1:1:1 10 mL PO QID Magic Mouthwash Diphen/Lido/Antacid 1:1:1 10 mL PO QID nebulizers As directed oxycodone 20 mg PO TID PRN sucralfate (Carafate) 10 mL PO BID 30 days tirzepatide (weight loss) (Zepbound) 15 mg subcut QWEEK HPI HPI 1 year follow up: Details: Jv is a 59-year-old male with past medical history of prior smoking, mild emphysema, cervical disc disease with prior surgery, esophageal stricture status post balloon dilation, atypical chest discomfort, anomalous left circumflex coronary artery, nonspecific EKG findings who presents for follow up. His last prior visit was 12/02/2023. Today he reports that since his last visit he is down 40 lb. He is on Zepbound injections and hopes to lose another 10 lb. He is feeling well overall with no concerning symptoms. He has ongoing issues with his esophagus and follows with Dr. Beal. He reports good activity tolerance. Taking meds as directed. [facility] Medical History Neuropathy Sleep apnea Shortness of breath Hypoglycemia Asthma-COPD overlap syndrome Pulmonary nodules Hx of renal calculi Hx of allergic rhinitis History of esophageal spasm Hx of chest pain Back pain Osteoarthritis of both hips Hx of goiter History of IBS History of colitis Chronic pain High cholesterol Hx of multiple pulmonary nodules Hypertension PTSD (post-traumatic stress disorder) Panic attacks Dysphagia GERD (gastroesophageal reflux disease) Anxiety Surgical History History of surgery on arm H/O shoulder surgery H/O neck surgery Hx of endoscopy Hx of transurethral resection of prostate Hx of tonsillectomy Hx of colonoscopy History of nasal surgery Hx of left inguinal hernia repair Hx of cervical discectomy Family History Father No problems noted. Mother No problems noted. Social History Household Members: Other Household Members Other:: Mother Alcohol intake: never Patient Tobacco Use Status: Former Tobacco user Tobacco use type: Cigarette Years Smoked: 30 Second Hand Smoke Exposure: No Current occupational status: unemployed Review of Systems Const All systems reviewed & are unremarkable except as noted in HPI and below Denies daytime sleepiness, Denies difficulty sleeping, Denies snoring, Denies stops breathing during sleep, Denies weakness and Reports weight loss Card Denies chest pain, Denies rapid heart rate, Denies irregular heart rhythm, Denies claudication, Denies leg edema, Denies lightheadedness, Denies palpitations, Denies dyspnea, Denies dyspnea on exertion, Denies orthopnea, Denies paroxysmal nocturnal dyspnea and Denies slow heart rate Resp Denies cough, Denies dyspnea, Denies dyspnea on exertion and Denies snoring GI Reports no additional complaints, Denies hematochezia, Denies change in stool character and Denies dyspepsia Musc Denies abnormal gait, Denies muscle weakness and Denies numbness Neuro Denies abnormal gait, Denies numbness and Denies weakness Endo Denies palpitations Physical Exam Vital Signs: Last Vital Signs Pulse 67 12/02/24 09:12 BP 108/68 12/02/24 09:12 BMI result Body Mass Index 25.6 Const General: cooperative, healthy appearing, comfortable and no acute distress Orientation/consciousness: patient oriented x3 Neck Neck: Yes normal visual inspection Resp Effort & Inspection: normal respiratory effort Auscultation: clear to auscultation bilaterally, no crackles, no rales, no rhonchi and no wheezes Cardio Jugular venous distension: no JVD Rate: regular rate Rhythm: regular rhythm Heart sounds: S1 normal heart sound present, S2 normal heart sound present, no gallops, no murmurs and no rubs Neuro General: patient oriented x3 Extrem General: Yes normal to inspection, No no pedal edema and No calf tenderness Psych Appearance: grossly normal Mental Status: mental status grossly normal Speech and movement: Normal speech and movement present Assessment & Plan Assessment & Plan (1) Abnormal EKG: Code(s): R94.31 - Abnormal electrocardiogram [ECG] [EKG] Category: Medical Plan: Prior EKG done on 11/18/2022 at PCP office showing T-wave inversions V1 through V 3, asymptomatic. Cardiac testing without significant findings. He had a stress echocardiogram in 2019 which showed no echo or EKG evidence of ischemia. CTA of the coronary arteries on 11/16/2019 showing no hemodynamically significant coronary artery disease, anomalous left circumflex artery which was benign. He then underwent an exercise stress test on 12/02/2022 with exercise 6 minutes 37 seconds with no chest pain and no EKG changes of ischemia. EKG done today showing sinus rhythm, rate 67. Currently no anginal symptoms. Continue with cardiac risk factor modification. (2) Hypertension: Code(s): I10 - Essential (primary) hypertension Category: Medical Qualifiers: Hypertension type: essential hypertension Qualified Code(s): I10 - Essential (primary) hypertension Plan: Blood pressure goal less than 130/80. Well controlled at present time. He has recently lost significant weight. He is not on any antihypertensives. The need for good hydration reviewed. (3) High cholesterol: Code(s): E78.00 - Pure hypercholesterolemia, unspecified Category: Medical Plan: LDL goal less than 100, ideally less than 70 in patient with coronary calcifications seen on CT. No recent lipid profile in our system. Labs followed by PCP at [place]. 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 Cardiology follow-up 1 year. Plan Time spent on chart review, documentation, interview and assessment Orders: Orders Comprehensive Met. 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
--- OUTSIDE RECORDS SUMMARY | 2024-12-02 10:35 | XMS_ITS | Encounter Summary ---
Author Organization [facility] Address [address] [address] Phone Care Team Providers Care Senior Product Development Engineer Name Role Phone Alicja Benton MD Primary Care Provider Encounter Details Date Type Department Care Team (Late st Contact Info) Description 03/06/2020 Telemedicine [facility] [address] [place] [address] Chapis Myrick MD [address] [place] [phone] [email or web address] Lung nodules (Primary Dx) Social History Tobacco [...] classified documented in this encounter Care Teams Senior Product Development Engineer Relationship Specialty Start Date End Date Alicja Benton MD [address] [facility] [place] [address] PCP - General Internal Medicine 12/15/18 documented as of this encounter Additional Source Comments The information contained in this document represents components of the legal health record. It is not the complete legal health record.[facility]
--- OUTSIDE RECORDS SUMMARY | 2024-12-02 10:35 | XMS_ITS | Encounter Summary ---
Author Organization [facility] Address [address] [place] [address] Care Team Providers Care Security Sme Name Role Phone Mireya Robledo MD Primary Care Prov ider Reason for Visit * Reason Onset Date Comments Provider call 11/18/2024 Encounter Details Date Type Department Care Team ([facility] st Contact Info) Description 11/18/2024 Telephone Adult Medicine [facility] [address] [place] [phone] Mireya Robledo MD 230 [place] [address] Social History Tobacco Use Types Packs/Day Years [...] patient letter). Patient received a letter from [facility] regarding his procedure he had done on 11/20/2023, esophageal manometry. The probe that was used did not under go the proper sterilization recommended by the padding gluer. Patient states he is starting to get the feeling back in his throat/esophagus again and wants to talk to Dr. Lennon. Patient states that he is receiving calls from [facility], however won't return them. Letter is uploaded into patients chart for PCP to review. documented in this encounter Plan of Treatment Upcoming Encounters Date Type Department Care Team (Late st Contact Info) Description 12/09/2024 9:30 AM EDT Office Visit Adult Medicine [facility] [address] [place] [phone] Logan Romero PA 230 [place] [address] 12/15/2024 10:00 AM EDT Office Visit Orthopedic Surgery [facility] 250 175 [facility] [address] [place] [phone] Mina Eckert DPM 175 [facility] 250 [place] [phone] 04/07/2025 9:45 AM EST Office Visit Bariatric Surgery [facility] 175 [facility] [address] [place] [phone] Sahara Villela MD 230 [place] [phone] documented as of this encounter Visit Diagnoses Not on filedocumented in this encounter Care Teams Security Sme Relationship Specialty Start Date End Date Mireya Robledo MD [address] [place] [address] PCP - General Internal Medicine 02/02/24 documented as of this encounter
--- OUTSIDE RECORDS SUMMARY | 2024-12-02 10:35 | XMS_ITS | Encounter Summary ---
Author Organization [facility] Address [address] [place] [address] Care Team Providers Care Color Tester Name Role Phone Mireya Robledo MD Primary Care Prov ider Reason for Visit * Reason Onset Date Comments Allergies 11/03/2024 Encounter Details Date Type Department Care Team (Late st Contact Info) Description 11/03/2024 Telephone Adult Medicine [address] [phone] Ree Beatty [place] Social History Tobacco Use [...] 11/03/2024 8:49 AM EDT Patient called, his Drill Foreman retired. He has been without his allergy [...] 9:30 AM EDT Office Visit Adult Medicine [facility] [address] [place] [phone] Logan Romero PA [address] [place] [address] 12/15/2024 10:00 AM EDT Office Visit Orthopedic Surgery [place] [address] 175 [facility] 250 [place] [phone] Mina Eckert DPDanisha [address] [phone] 04/07/2025 9:45 AM EST Office Visit Bariatric Surgery [facility] 175 [facility] [address] [place] [phone] Sahara Villela MD [address] [place] [address] documented as of this encounter Visit Diagnoses Not on filedocumented in this encounter Discontinued Medications Medication Sig Discontinue Reason Start Date End Da te levocetirizine (XYZAL) 5 mg tablet TAKE 1 TABLET BY MOUTH EVERY DAY IN THE EVENING Reorder 05/21/2024 11/03/2024 documented as of this encounter Care Teams Color Tester Relationship Specialty Start Date End Date Mireya Robledo MD [address] [place] [address] PCP - General Internal Medicine 02/02/24 documented as of this encounter
--- OUTSIDE RECORDS SUMMARY | 2024-12-02 10:35 | XMS_ITS | Encounter Summary ---
Author Organization [facility] Address [address] [place] [address] Phone Care Team Providers Care Vision Care Associate Name Role Phone Alicja Benton MD Primary Care Provider Reason for Referral * MRI/CAT Scan - Closed Specialty Diagnoses / Procedures Referred By Contac t Referred To Contact Procedures CT Chest Outside (No Interpretation) Chapis Myrick MD Phone: tel: fax: mailto:[email or web address] Referral ID Status Reason Start Date Expiration Date Visits Re quested Visits Authorized [id number] Closed 01/15/2019 01/15/2020 1 1 * MRI/CAT Scan - Closed Specialty Diagnoses / Procedures Referred By Contac t Referred To Contact Procedures CT Chest Outside (No Interpretation) Chapis Myrick MD Phone: tel: fax: mailto:[email or web address] Referral ID Status Reason Start Date Expiration Date Visits Re quested Visits Authorized [id number] Closed 01/15/2019 01/15/2020 1 1 * MRI/CAT Scan - Closed Specialty Diagnoses / Procedures Referred By Contac t Referred To Contact Procedures CT Vascular Outside (No Interpretation) Chapis Myrick MD Phone: tel: fax: mailto:[email or web address] Referral ID Status Reason Start Date Expiration Date Visits Re quested Visits Authorized [id number] Closed 01/15/2019 01/15/2020 1 1 Encounter Details Date Type Department Care Team (Late st Contact Info) Description 01/15/2019 Transcribe Orders [facility] [address] [address] Osiel Rose [address] [place] [id number] [email or web address] Social History Tobacco Use Types [...] (No Interpretation) (01/15/2019 8:05 AM EDT) Narrative [facility] - 01/15/2019 8:05 AM EDT This study is for PACS storage only and not for interpretation. us Chapis Myrick MD IMG OUTSIDE IMAGING W/OUT IN TERPRETATION Final Result Performing Organization Address [facility] de Phone Number [email or web address] * CT Chest Outside (No Interpretation) (01/15/2019 8:04 AM EDT) Narrative [facility] - 01/15/2019 8:04 AM EDT This study is for PACS storage only and not for interpretation. us Chapis Myrick MD IMG OUTSIDE IMAGING W/OUT IN TERPRETATION Final Result Performing Organization Address [facility] Co de Phone Number [email or web address] * CT Vascular Outside (No Interpretation) (01/15/2019 8:04 AM EDT) Narrative [facility] - 01/15/2019 8:04 AM EDT This study is for PACS storage only and not for interpretation. us Chapis Myrick MD IMG OUTSIDE IMAGING W/OUT IN TERPRETATION Final Result [facility] documented in this encounter Visit Diagnoses Not on filedocumented in this encounter Care Teams Vision Care Associate Relationship Specialty Start Date End Date Alicja Benton MD [facility] [address] PCP - General Internal Medicine 12/15/18 documented as of this encounter Additional Source Comments The information contained in this document represents components of the legal health record. It is not the complete legal health record.[facility]
--- OUTSIDE RECORDS SUMMARY | 2024-12-02 10:35 | XMS_ITS | Patient Health Record ---
Author Organization [facility] Address [address] [place] [address] Care Team Providers Care Center Consultant Name Role Phone Aston Davison Primary Care Provider Unav Xavi Cortes Unavailable [phone] Allergies Allergen (clinical drug ingredient) Drug/Non Drug [...] TH EVERY DAY Oral; Duration: 90 Active [id number] Ethyl Esters 1 GM TAKE 2 CAPSULES [...] Medicare [employer] [address] [place] [address] [id number] Jv Monroy Self - patient is the insured 4 Medical (General) History Medical History History ICD Code Arthritis asthma Back,Hip,and Knee pain Broken bones Headaches/Migraines High blood pressure Lung disease nerve disorder Surgical History Surgery Date(Month/Year) cervical fusion hernia leg surgery nose
--- OUTSIDE RECORDS SUMMARY | 2024-12-02 10:35 | XMS_ITS | Encounter Summary ---
Author Organization [facility] Address [address] [place] [address] Care Team Providers Care Injection Molding Machine Offbearer Name Role Phone Mireya Robledo MD Primary Care Prov ider Reason for Visit * Reason Onset Date Comments Results 11/30/2024 [facility] Encounter Details Date Type Department Care Team (Late st Contact Info) Description 11/30/2024 Telephone Adult Medicine - [place] [address] [place] [phone] Mireya Robledo MD 230 [place] [address] Social History Tobacco Use Types Packs/Day Years [...] encounter Progress Notes * Katia Salinas - 11/30/2024 11:37 AM EDT Pt is very concerned with the lab results dated 11/27/2024 from [facility]. He wouldlike to talk to Dr. Swanson regarding the. He also indicated he received a call from [facility] about infectious disease documented in this encounter Plan of Treatment Upcoming Encounters Date Type Department Care Team (Late st Contact Info) Description 12/09/2024 9:30 AM EDT Office Visit Adult Medicine [facility] [address] [place] [phone] oLgan Romero PA [address] [place] [address] 12/15/2024 10:00 AM EDT Office Visit Orthopedic Surgery [facility] 250 175 [facility] 250 [place] [phone] Mina Eckert DPM [address] [phone] 04/07/2025 9:45 AM EST Office Visit Bariatric Surgery [facility] 175 [facility] 120 [place] [phone] Sahara Villela MD [address] [place] [phone] documented as of this encounter Visit Diagnoses Not on filedocumented in this encounter Care Teams Injection Molding Machine Offbearer Relationship Specialty Start Date End Date Mireya Robledo MD [address] [place] [address] PCP - General Internal Medicine 02/02/24 documented as of this encounter
--- OUTSIDE RECORDS SUMMARY | 2024-12-02 10:35 | XMS_ITS | Clinical Summary ---
Author Organization [facility] Address [address] [place] [address] Care Team Providers Care Patient Transporter Name Role Phone Mireya Robledo MD Primary [...] age to complete this topic Care Teams Patient Transporter Relationship Specialty Start Date End Date Mireya Robledo MD PCP - General Internal Medicine 05/26/20
--- OUTSIDE RECORDS SUMMARY | 2024-12-02 10:35 | XMS_ITS | Encounter Summary ---
Author Organization [facility] Address [address] [place] [address] Care Team Providers Care Peace Officer Name Role Phone Mireya Robledo MD Primary Care Prov ider Reason for Visit * Reason Onset Date Comments Study Results 11/17/2024 Echocardiogram Encounter Details Date Type Department Care Team ([facility] Contact Info) Description 11/17/2024 Telephone Adult [address] [phone] Ree Beatty [place] Social History Tobacco Use [...] Upcoming Encounters Date Type Department Care Team ([facility] Contact Info) Description 12/09/2024 9:30 AM EDT Office Visit Adult Medicine - [place] [address] [place] [phone] Logan Romero PA [address] [place] [address] 12/15/2024 10:00 AM EDT Office Visit Orthopedic Surgery - [place] [address] 175 [facility] 250 [place] [phone] Mina Eckert, DPM [address] [phone] 04/07/2025 9:45 AM EST Office Visit Bariatric Surgery - [place] 175 [facility] [address] [place] [phone] Sahara Villela MD [address] [place] [phone] documented as of this encounter Visit Diagnoses Not on filedocumented in this encounter Care Teams Peace Officer Relationship Specialty Start Date End Date Mireya Robledo MD [address] [place] [address] PCP - General Internal Medicine 02/02/24 documented as of this encounter
--- OUTSIDE RECORDS SUMMARY | 2024-12-02 10:35 | XMS_ITS | Clinical Summary ---
Author Organization [facility] Address [address] [place] [address] Phone Care Team Providers Care Hotel Service Supervisor Name Role Phone Alicja Benton MD Primary [...] file Insurance MEDICARE PART A & B [facility] MEDICARE PART A & B [place] [facility] [place] [facility] & [facility] PART [facility] & [facility] MEDICARE PART A & [place] PART [facility] & [facility] Care Teams Hotel Service Supervisor Relationship Specialty Start Date End Date Alicja Benton MD [address] [facility] [place] [address] PCP - General Internal Medicine 12/15/18 Additional Source Comments The information contained in this document represents components of the legal health record. It is not the complete legal health record.[facility]
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
--- OUTSIDE RECORDS SUMMARY | 2024-12-02 10:35 | XMS_ITS | Clinical Summary ---
Author Organization [facility] Address [address] [place] [address] Care Team Providers Care Conduit Reamer Operator Name Role Phone Mireya Robledo Primary Care Provide r Unavailable Medications Hospital, Clinic, or Other Facility Administered Medication Ordered Dose Route Frequency Start Date End Date Status lidocaine (XYLOCAINE) 4% (40 mg/mL) topical solution 120 mg 120 mg topical Once 11/20/2023 Active Encounters Date Type Department Care Team Description 11/18/2024 Telephone [facility] Infection Control Department [address] [place] [address] Angel Sal III, MD 11/10/2024 Telephone [facility] Infection Control Department [address] [place] [address] Angel Sal III, MD from Last 3 [...] Zoster Vaccines Completed 11/08/2017, 07/24/2017 Insurance MEDICARE [facility] Care Teams Conduit Reamer Operator Relationship Specialty Start Date End Date Mireya Robledo [address] [place] [address] PCP - General Internal Medicine 11/04/23
--- OUTSIDE RECORDS SUMMARY | 2024-12-02 10:35 | XMS_ITS | Encounter Summary ---
Author Organization [facility] Address [address] [place] [address] Care Team Providers Care Practice Architect Name Role Phone Mireya Robledo MD Primary Care Prov ider Reason for Referral * Consultation (Routine) - Authorized Specialty Diagnoses / Procedures Referred By Contac t Referred To Contact Cardiology Diagnoses KATHLEEN (obstructive sleep apnea) Mireya Robledo MD [address] [place] [address] Phone: tel: fax: [address] [address] Phone: tel: Referral ID Status Reason Start Date Expiration Date Visits Requested Visits Authorized [id number] Authorized Specialty Services Required 11/12/2024 11/12/2025 1 1 Reason for Visit * Reason Onset Date Comments Referral 11/03/2024 cardiology Encounter Details Date Type Department Care Team (Late st Contact Info) Description 11/03/2024 Telephone Adult Medicine - [place] [address] [place] [address] Mireya Robledo MD [address] [place], [place] Social History Tobacco Use Types Packs/Day [...] insurance must be obtained and registered in [facility] or their referral can not be processed. Who is calling to request this referral? Pt If the caller is not the patient, what is their name? not applicable Ask the patient WHO referred them to this specialty: Patient self referred FIRST and LAST NAME of SPECIALIST PATIENT is seeing: [facility] does not have a drs name [...] this visit: Initial Visit Address of Specialist: [facility] Phone # of Specialist: [phone] Fax #: (if applicable): [phone] Does patient have an appointment scheduled?: no Date of appointment- (including a retro-request): - Is this appointment related to: Not MVA, worker compensation, or surgery related documented in this encounter Plan of Treatment Upcoming Encounters Date Type Department Care Team (Late st Contact Info) Description 12/09/2024 9:30 AM EDT Office Visit Adult Medicine - [place] [address] [place] [phone] Logan Romero PA [address] [place] [address] 12/15/2024 10:00 AM EDT Office Visit Orthopedic Surgery - [place] 250 175 [facility] [address] [place] [phone] Mina Eckert, DPM 175 [facility] [address] [place] [phone] 04/07/2025 9:45 AM EST Office Visit Bariatric Surgery - [place] 175 [facility] [address] [place] [phone] Sahara Villela MD [address] [place] [phone] Scheduled Referrals Name Type Priority Associated Diagnoses Order Schedule Ambulatory referral to Cardiology Outpatient Referral Routine KATHLEEN (obstructive sleep apnea) Expected: 11/12/2024, Expires: 11/12/2025 documented as of this encounter Visit Diagnoses Diagnosis KATHLEEN (obstructive sleep apnea)- Primary Obstructive sleep apnea (adult) (pediatric) documented in this encounter Care Teams Practice Architect Relationship Specialty Start Date End Date Mireya Robledo MD [address] [place] [address] PCP - General Internal Medicine 02/02/24 documented as of this encounter
--- OUTSIDE RECORDS SUMMARY | 2024-12-02 10:35 | XMS_ITS | Encounter Summary ---
Author Organization [facility] Address [address] [facility] [address] [place] [address] Phone Care Team Providers Care Special Collections Librarian Name Role Phone Alicja Benton MD Primary Care Provider Encounter Details Date Type Department Care Team (Late st Contact Info) Description 01/14/2019 Documentation [facility] [address] [place] [id number] No [email or web address] History Tobacco Use Types Packs/Day Years [...] on filedocumented in this encounter Care Teams Special Collections Librarian Relationship Specialty Start Date End Date Alicja Benton MD [facility] [address] PCP - General Internal Medicine 12/15/18 documented as of this encounter Additional Source Comments The information contained in this document represents components of the legal health record. It is not the complete legal health record.[facility]
== END 2024-12-02 09:48 | disposition home or self-care (01) ==
LOC: HO.HCS 09:10
PROVIDERS: PCP Internal Medicine; Visit Provider Nurse Practitioner Family
DX: R94.31 Abnormal electrocardiogram [ECG] [EKG] (principal); I10 Essential (primary) hypertension; E78.00 Pure hypercholesterolemia, unspecified; Q24.5 Malformation of coronary vessels
CPT/HCPCS: 93010; 99213; G2211

== ENCOUNTER → 2024-12-02 09:10 | Outpatient (BNVA) | payer MEDICARE, MEDICAID, SELFPAY | PROVIDERS: PCP Internal Medicine; Visit Provider Nurse Practitioner Family | DX: I10 Essential (primary) hypertension (principal); R94.31 Abnormal electrocardiogram [ECG] [EKG]; E78.00 Pure hypercholesterolemia, unspecified; Q24.5 Malformation of coronary vessels | CPT/HCPCS: 93005; 99212 ==

== ENCOUNTER 2024-12-06 09:27 | Outpatient (AMB) | payer MEDICARE, MEDICAID, SELFPAY ==
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
[2024-12-06 09:41] VITALS: BP 95/60; PULSE 62; O2SAT 99; BMI 25.7
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
--- OUTSIDE RECORDS SUMMARY | 2024-12-06 11:17 | XMS_ITS | Encounter Summary ---
Author Organization [facility] Address [address] [place] [address] Care Team Providers Care Network Operations Technician Name Role Phone Mireya Robledo MD Primary Care Prov ider Reason for Visit * Reason Onset Date Comments Results 11/30/2024 [facility] Lab Encounter Details Date Type Department Care Team (Late st Contact Info) Description 11/30/2024 Telephone Adult Medicine - [place] [address] [place] [phone] Mireya Robledo MD [address] [place] [address] Social History Tobacco Use Types Packs/Day Years [...] Progress Notes * Ree Beatty MA - 12/02/2024 12:44 PM EDT Patient came into office today. He is concerned with results of labs. Patient advised that Dr. Swanson is out of the office this afternoon and will return tomorrow and give him a call. He verbalizedunderstanding. * Katia Salinas - 11/30/2024 11:37 AM EDT Pt is very concerned with the lab results dated 11/27/2024 from [facility]. He wouldlike to talk to Dr. Swanson regarding the. He also indicated he received a call from [facility] about infectious disease documented in this encounter Plan of Treatment Upcoming Encounters Date Type Department Care Team (Late st Contact Info) Description 12/09/2024 9:30 AM EDT Office Visit Adult Medicine [facility] [address] [place] [phone] Logan Romero PA [address] [place] [address] 12/15/2024 10:00 AM EDT Office Visit Orthopedic Surgery - [place] 250 [address] [facility] [address] [place] [phone] Mina Eckert DPM 175 [facility] [address] [place] [phone] 04/07/2025 9:45 AM EST Office Visit Bariatric Surgery [facility] 175 [facility] [address] [place] [phone] Sahara Villela MD [address] [place] [phone] documented as of this encounter Visit Diagnoses Not on filedocumented in this encounter Care Teams Network Operations Technician Relationship Specialty Start Date End Date Mireya Robledo MD [address] [place], [place] PCP - General Internal Medicine 02/02/24 documented as of this encounter
--- OUTSIDE RECORDS SUMMARY | 2024-12-06 11:17 | XMS_ITS | Encounter Summary ---
Author Organization [facility] Address [address] [facility] [address] [place] [address] Phone Care Team Providers Care Licensed Appraiser Name Role Phone Alicja Benton MD Primary Care Provider Encounter Details Date Type Department Care Team (Late st Contact Info) Description 03/06/2020 Telemedicine [facility] [address] [place] [phone] Chapis Myrick MD [address] [place] [phone] [email or web address] Lung nodules (Primary Dx) Social History [...] classified documented in this encounter Care Teams Licensed Appraiser Relationship Specialty Start Date End Date Alicja Benton MD [address] [facility] [place] [address] PCP - General Internal Medicine 12/15/18 documented as of this encounter Additional Source Comments The information contained in this document represents components of the legal health record. It is not the complete legal health record.[facility]
--- OUTSIDE RECORDS SUMMARY | 2024-12-06 11:17 | XMS_ITS | Encounter Summary ---
Author Organization [facility] Address [address] [place] [address] Care Team Providers Care Director Of Community Education Name Role Phone Mireya Robledo MD Primary Care Prov ider Reason for Visit * Reason Onset Date Comments Allergies 11/03/2024 Encounter Details Date Type Department Care Team (Late st Contact Info) Description 11/03/2024 Telephone Adult Medicine [address] [phone] Ree Beatty [place] Social History Tobacco Use [...] 11/03/2024 8:49 AM EDT Patient called, his [employer] retired. He has been without his allergy [...] 9:30 AM EDT Office Visit Adult Medicine [facility] [address] [place] [phone] Logan Romero PA [address] [place] [address] 12/15/2024 10:00 AM EDT Office Visit Orthopedic Surgery [place] [address] 175 [facility] 250 [place] [phone] Mina Eckert DPDanisha [address] [phone] 04/07/2025 9:45 AM EST Office Visit Bariatric Surgery [facility] 175 [facility] [address] [place] [phone] Sahara Villela MD [address] [place] [address] documented as of this encounter Visit Diagnoses Not on filedocumented in this encounter Discontinued Medications Medication Sig Discontinue Reason Start Date End Da te levocetirizine (XYZAL) 5 mg tablet TAKE 1 TABLET BY MOUTH EVERY DAY IN THE EVENING Reorder 05/21/2024 11/03/2024 documented as of this encounter Care Teams Director Of Community Education Relationship Specialty Start Date End Date Mireya Robledo MD [address] [place] [address] PCP - General Internal Medicine 02/02/24 documented as of this encounter
--- OUTSIDE RECORDS SUMMARY | 2024-12-06 11:17 | XMS_ITS | Encounter Summary ---
Author Organization [facility] Address [address] [place] [address] Phone Care Team Providers Care Blister Pack Operator Name Role Phone Alicja Benton MD Primary Care Provider Reason for Referral * MRI/CAT Scan - Closed Specialty Diagnoses / Procedures Referred By Contac t Referred To Contact Procedures CT Chest Outside (No Interpretation) Chapis Myrick MD Phone: tel: fax: mailto:[email or web address] Referral ID Status Reason Start Date Expiration Date Visits Re quested Visits Authorized [id number] Closed 01/15/2019 01/15/2020 1 1 * MRI/CAT Scan - Closed Specialty Diagnoses / Procedures Referred By Contac t Referred To Contact Procedures CT Chest Outside (No Interpretation) Chapis Myrick MD Phone: tel: fax: mailto:[email or web address] Referral ID Status Reason Start Date Expiration Date Visits Re quested Visits Authorized [id number] Closed 01/15/2019 01/15/2020 1 1 * MRI/CAT Scan - Closed Specialty Diagnoses / Procedures Referred By Contac t Referred To Contact Procedures CT Vascular Outside (No Interpretation) Chapis Myrick MD Phone: tel: fax: mailto:[email or web address] Referral ID Status Reason Start Date Expiration Date Visits Re quested Visits Authorized [id number] Closed 01/15/2019 01/15/2020 1 1 Encounter Details Date Type Department Care Team (Late st Contact Info) Description 01/15/2019 Transcribe Orders [facility] [address] [address] Osiel Rose [address] [place] [id number] [email or web address] Social History Tobacco Use Types [...] (No Interpretation) (01/15/2019 8:05 AM EDT) Narrative [facility] - 01/15/2019 8:05 AM EDT This study is for PACS storage only and not for interpretation. us Chapis Myrick MD IMG OUTSIDE IMAGING W/OUT IN TERPRETATION Final Result Performing Organization Address [facility] de Phone Number [email or web address] * CT Chest Outside (No Interpretation) (01/15/2019 8:04 AM EDT) Narrative [facility] - 01/15/2019 8:04 AM EDT This study is for PACS storage only and not for interpretation. us Chapis Myrick MD IMG OUTSIDE IMAGING W/OUT IN TERPRETATION Final Result Performing Organization Address [facility] Co de Phone Number [email or web address] * CT Vascular Outside (No Interpretation) (01/15/2019 8:04 AM EDT) Narrative [facility] - 01/15/2019 8:04 AM EDT This study is for PACS storage only and not for interpretation. us Chapis Myrick MD IMG OUTSIDE IMAGING W/OUT IN TERPRETATION Final Result [facility] documented in this encounter Visit Diagnoses Not on filedocumented in this encounter Care Teams Blister Pack Operator Relationship Specialty Start Date End Date Alicja Benton MD [facility] [place] [address] PCP - General Internal Medicine 12/15/18 documented as of this encounter Additional Source Comments The information contained in this document represents components of the legal health record. It is not the complete legal health record.[facility]
--- OUTSIDE RECORDS SUMMARY | 2024-12-06 11:17 | XMS_ITS | Encounter Summary ---
Author Organization [facility] Address [address] [facility] [address] [place] [address] Phone Care Team Providers Care Network Operations Technician Name Role Phone Alicja Benton MD Primary Care Provider Encounter Details Date Type Department Care Team (Late st Contact Info) Description 01/14/2019 Documentation [facility] [address] [place] [address] No [email or web address] Social History Tobacco Use Types Packs/Day [...] Technician Relationship Specialty Start Date End Date Alicja Benton MD [facility] [place] [address] PCP - General Internal Medicine 12/15/18 documented as of this encounter Additional Source Comments The information contained in this document represents components of the legal health record. It is not the complete legal health record.[facility]
--- OUTSIDE RECORDS SUMMARY | 2024-12-06 11:17 | XMS_ITS | Encounter Summary ---
Author Organization [facility] Address [address] [place] [address] Care Team Providers Care Railroad Police Officer Name Role Phone Mireya Robledo MD Primary Care Prov ider Reason for Referral * Consultation (Routine) - Authorized Specialty Diagnoses / Procedures Referred By Contac t Referred To Contact Cardiology Diagnoses KATHLEEN (obstructive sleep apnea) Mireya Robledo MD [address] [place] [address] Phone: tel: fax: [address] [address] Phone: tel: Referral ID Status Reason Start Date Expiration Date Visits Requested Visits Authorized [id number] Authorized Specialty Services Required 11/12/2024 11/12/2025 1 1 Reason for Visit * Reason Onset Date Comments Referral 11/03/2024 cardiology Encounter Details Date Type Department Care Team (Late st Contact Info) Description 11/03/2024 Telephone Adult Medicine - [place] [address] [place] [address] Mireya Robledo MD [address] [place], [place] Social History Tobacco Use Types Packs/Day [...] insurance must be obtained and registered in [facility] or their referral can not be processed. Who is calling to request this referral? Pt If the caller is not the patient, what is their name? not applicable Ask the patient WHO referred them to this specialty: Patient self referred FIRST and LAST NAME of SPECIALIST PATIENT is seeing: [facility] does not have a drs name What [...] this visit: Initial Visit Address of Specialist: [facility] Phone # of Specialist: [phone] Fax #: (if applicable): [phone] Does patient have an appointment scheduled?: no Date of appointment- (including a retro-request): - Is this appointment related to: Not MVA, worker compensation, or surgery related documented in this encounter Plan of Treatment Upcoming Encounters Date Type Department Care Team (Late st Contact Info) Description 12/09/2024 9:30 AM EDT Office Visit Adult Medicine - [place] [address] [place] [phone] Logan Romero PA [address] [place] [address] 12/15/2024 10:00 AM EDT Office Visit Orthopedic Surgery - [place] 250 175 [facility] 250 [place] [phone] Mina Eckert, DPM 175 [facility] [address] [place] [phone] 04/07/2025 9:45 AM EST Office Visit Bariatric Surgery - [place] 175 [facility] [address] [place] [phone] Sahara Villela MD [address] [place] [phone] Scheduled Referrals Name Type Priority Associated Diagnoses Order Schedule Ambulatory referral to Cardiology Outpatient Referral Routine KATHLEEN (obstructive sleep apnea) Expected: 11/12/2024, Expires: 11/12/2025 documented as of this encounter Visit Diagnoses Diagnosis KATHLEEN (obstructive sleep apnea)- Primary Obstructive sleep apnea (adult) (pediatric) documented in this encounter Care Teams Railroad Police Officer Relationship Specialty Start Date End Date Mireya Robledo MD [address] [place] [address] PCP - General Internal Medicine 02/02/24 documented as of this encounter
--- OUTSIDE RECORDS SUMMARY | 2024-12-06 11:18 | XMS_ITS | Clinical Summary ---
[facility] Address [address] [place] [address] Care Team Providers Care Tailor'S Aide Name Role Phone Mireya Robledo MD Primary [...] age to complete this topic Care Teams Tailor'S Aide Relationship Specialty Start Date End Date Mireya Robledo MD PCP - General Internal Medicine 05/26/20
--- OUTSIDE RECORDS SUMMARY | 2024-12-06 11:18 | XMS_ITS | Clinical Summary ---
Author Organization [facility] Address [address] [place] [address] Care Team Providers Care Finishing Department Supervisor Name Role Phone Mireya Robledo Primary Care Provide r Unavailable Medications Hospital, Clinic, or Other Facility Administered Medication Ordered Dose Route Frequency Start Date End Date Status lidocaine (XYLOCAINE) 4% (40 mg/mL) topical solution 120 mg 120 mg topical Once 11/20/2023 Active Encounters Date Type Department Care Team Description 11/18/2024 Telephone [facility] Infection Control Department [address] [place] [address] Angel Sal III, MD 11/10/2024 Telephone [facility] Infection Control Department [address] [place] [address] Angel Sal III, MD from Last 3 [...] Zoster Vaccines Completed 11/08/2017, 07/24/2017 Insurance MEDICARE [facility] Care Teams Finishing Department Supervisor Relationship Specialty Start Date End Date Mireya Robledo [address] [place] [address] PCP - General Internal Medicine 11/04/23
--- OUTSIDE RECORDS SUMMARY | 2024-12-06 11:18 | XMS_ITS | Encounter Summary ---
Author Organization [facility] Address [address] [place] [address] Care Team Providers Care Voice Data Communications Engineer Name Role Phone Mireya Robledo MD Primary Care Prov ider Reason for Visit * Reason Onset Date Comments Provider call 11/18/2024 Encounter Details Date Type Department Care Team ([facility] st Contact Info) Description 11/18/2024 Telephone Adult Medicine [facility] [address] [place] [phone] Mireya Robledo MD [address] [place] [address] Social History Tobacco Use Types Packs/Day Years [...] patient letter). Patient received a letter from [facility] regarding his procedure he had done on 11/20/2023, esophageal manometry. The probe that was used did not under go the proper sterilization recommended by the development manager. Patient states he is starting to get the feeling back in his throat/esophagus again and wants to talk to Dr. Lennon. Patient states that he is receiving calls from [facility], however won't return them. Letter is uploaded into patients chart for PCP to review. documented in this encounter Plan of Treatment Upcoming Encounters Date Type Department Care Team (Late st Contact Info) Description 12/09/2024 9:30 AM EDT Office Visit Adult Medicine [facility] [address] [place] [phone] Logan Romero PA [address] [place] [address] 12/15/2024 10:00 AM EDT Office Visit Orthopedic Surgery [facility] 250 175 [facility] [address] [place] [phone] Mina Eckert DPM 175 [facility] [address] [place] [phone] 04/07/2025 9:45 AM EST Office Visit Bariatric Surgery [facility] 175 [facility] [address] [place] [phone] Sahara Villela MD [address] [place] [phone] documented as of this encounter Visit Diagnoses Not on filedocumented in this encounter Care Teams Voice Data Communications Engineer Relationship Specialty Start Date End Date Mireya Robledo MD [address] [place] [address] PCP - General Internal Medicine 02/02/24 documented as of this encounter
--- OUTSIDE RECORDS SUMMARY | 2024-12-06 11:18 | XMS_ITS | Patient Health Record ---
[facility] Address [address] [place] [address] Care Team Providers Care Food Quality Technician Name Role Phone Aston Davison Primary Care Provider Unav Xavi Cortes Unavailable [phone] Allergies Allergen (clinical drug ingredient) Drug/Non Drug [...] TH EVERY DAY Oral; Duration: 90 Active Ireut-7-[id number] Ethyl Esters 1 GM TAKE 2 CAPSULES [...] Medicare National [employer] [address] [place] [address] [id number] Jv Monroy Self - patient is the insured 4 Medical (General) History Medical History History ICD Code Arthritis asthma Back,Hip,and Knee pain Broken bones Headaches/Migraines High blood pressure Lung disease nerve disorder Surgical History Surgery Date(Month/Year) cervical fusion hernia leg surgery nose
--- OUTSIDE RECORDS SUMMARY | 2024-12-06 11:18 | XMS_ITS | Encounter Summary ---
Author Organization [facility] Address [address] [place] [address] Care Team Providers Care Die Cast Patternmaker Name Role Phone Mireya Robledo MD Primary Care Prov ider Reason for Visit * Reason Onset Date Comments Study Results 11/17/2024 Echocardiogram Encounter Details Date Type Department Care Team ([facility] Contact Info) Description 11/17/2024 Telephone Adult [address] [phone] Ree Beatty [place] Social History Tobacco Use [...] Upcoming Encounters Date Type Department Care Team ([facility] Contact Info) Description 12/09/2024 9:30 AM EDT Office Visit Adult Medicine - [place] [address] [place] [phone] Logan Romero PA [address] [place] [address] 12/15/2024 10:00 AM EDT Office Visit Orthopedic Surgery - [place] [address] 175 [facility] [address] [place] [phone] Mina Eckert, DPM [address] [phone] 04/07/2025 9:45 AM EST Office Visit Bariatric Surgery - [place] 175 [facility] [address] [place] [phone] Sahara Villela MD [address] [place] [phone] documented as of this encounter Visit Diagnoses Not on filedocumented in this encounter Care Teams Die Cast Patternmaker Relationship Specialty Start Date End Date Mireya Robledo MD [address] [place] [address] PCP - General Internal Medicine 02/02/24 documented as of this encounter
--- OUTSIDE RECORDS SUMMARY | 2024-12-06 11:18 | XMS_ITS | Clinical Summary ---
Author Organization [facility] Address [address] [place] [address] Phone Care Team Providers Care Frame Assembler Name Role Phone Alicja Benton MD Primary [...] file Insurance MEDICARE PART A & B [facility] MEDICARE PART A & B [place] MED[place]ARE PART A & B [facility] [place] [facility] PART A & [facility] PART [facility] & [facility] PART A & [facility] MEDICARE PART A & [place] MEDICARE PART A & B [facility] Care Teams Frame Assembler Relationship Specialty Start Date End Date Alicja Benton MD [address] [place] [address] PCP - General Internal Medicine 12/15/18 Additional Source Comments The information contained in this document represents components of the legal health record. It is not the complete legal health record.[facility]
== END 2024-12-06 10:18 | disposition home or self-care (01) ==
LOC: HO.HGI 09:27
PROVIDERS: PCP Internal Medicine; Visit Provider Internal Medicine Gastroenterology
DX: K22.2 Esophageal obstruction (principal)
CPT/HCPCS: 99213

== ENCOUNTER → 2024-12-06 09:27 | Outpatient (BNVA) | payer MEDICARE, MEDICAID, SELFPAY | PROVIDERS: PCP Internal Medicine; Visit Provider Internal Medicine Gastroenterology | DX: K22.2 Esophageal obstruction (principal) | CPT/HCPCS: 99212 ==

== ENCOUNTER 2024-12-06 11:06 | Outpatient (AMB) | payer MEDICARE, MEDICAID, SELFPAY | END 2024-12-06 11:08 | disposition home or self-care (01) | LOC: HO.HMGAL 11:06 | PROVIDERS: PCP Internal Medicine; Visit Provider Registered Nurse Emergency | DX: J30.89 Other allergic rhinitis (principal) | CPT/HCPCS: 95117; 95165 ==

== ENCOUNTER 2024-12-17 11:22 | Outpatient (AMB) | payer MEDICARE, MEDICAID, SELFPAY ==
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
--- NOTE | 2024-12-17 11:22 | A.OFFVIS_ITS ---
Vital Signs 12/17/24 11:28 Height 5 ft 7 in Weight 167 lb BMI 26.2 Pulse 81 Pulse Source Pulse Oximeter Pulse Oximetry (%) 98 Oxygen Delivery Method Room Air Intake Visit Reasons: [facility] [place] B Allergies metronidazole (From FLAGYL) Allergy (Severe, Verified 12/17/24 11:28) RASH tree and shrub pollen (TREE) Allergy (Severe, Verified 12/17/24 11:28) Rash dexamethasone Adverse Reaction (Severe, Verified 12/17/24 11:28) palpitatiions fluticasone furoate (Breo Ellipta) Adverse Reaction (Severe, Verified 12/17/24 11:28) palpitations, high BP umeclidinium (Incruse Ellipta) Adverse Reaction (Severe, Verified 12/17/24 11:28) palpitations Bee sting Allergy (Severe, Uncoded 01/30/24 09:48) Hives/Difficulty breathing Clindamycin HCl Allergy (Severe, Uncoded 01/30/24 09:48) Hives HPI Comments Details: History of Present Illness The patient is a 59-year-old male presenting with a concern regarding Hepatitis B. He has a documented history of fatty liver and previous Hepatitis B core antibody positivity, suggesting past exposure to the virus. His Hepatitis B surface antigen is negative, which indicates that he has cleared the infection. The patient was referred to me by Dr. Cerda, a promotions specialist, for further evaluation of his Hepatitis B status. The patient also previously had an esophageal infection, which was managed at [facility] and has since resolved. He denies any persistent symptoms related to this infection. His history is notable for the absence of HIV and Hepatitis C infection. Review of Systems - HEENT: Denies current symptoms. - Respiratory: Denies current symptoms. - Cardiovascular: Denies chest pain or palpitations. - Gastrointestinal: Denies abdominal pain; reports history of fatty liver. - Skin: Denies rashes or lesions. Physical Exam - Vitals- Stable. - HEENT- Pupils equally round, reactive to light and accommodation; oropharynx clear. - Respiratory- Lungs clear. - Cardiovascular- Heart rate and rhythm regular. - Abdominal- Soft and nontender. - Extremities- Nontender. - Neurological- Exam is non-focal. - Skin- Clear. Results - Labs: Hepatitis B core antibody positive, Hepatitis B antibody positive, Hepatitis B surface antigen negative. - Tests and Diagnostics: HIV negative, Hepatitis C negative. Plan Patient was informed and verbally consented to the use of an ambient scribe for clinic note documentation during this visit. 1. Hepatitis B With Resolved Infection The patient?s Hepatitis B exposure has resulted in natural clearance, as evidenced by serological markers. No further antiviral treatment is required, and he will continue under routine surveillance as deemed necessary by the GI service for fatty liver if needed. 2. Fatty (change of) liver, not elsewhere classified K76.0 Continued monitoring and lifestyle management through gastroenterology follow-up for fatty liver. No new interventions were initiated today. 3. Resolved Esophageal Infection No further action required for the past esophageal infection as it is resolved and presently asymptomatic. Discussion Notes I discussed with the patient that his Hepatitis B serology indicates past exposure with natural recovery, requiring no treatment at this time. The laboratory findings support the absence of active Hepatitis B infection. The risks of transmission are null since the surface antigen remains negative. The benefits of withholding further Hepatitis B testing outweigh risks due to the resolved state and vaccination history. Monitoring of liver function will be pursued as indicated with his breed to wean production technician. Medical Decision Making The clinical judgment is based on laboratory results indicating resolved Hepatitis B infection with immunological recovery and adequate vaccination response. Given the stable viral markers and lack of active infection, no further intervention for Hepatitis B is warranted. The past esophageal infection is not of clinical concern as it has resolved fully. My decision aligns with current guidelines for managing a patient with resolved Hepatitis B exposure and fatty liver, acknowledging the patient's stability and absence of acute issues. Patient Instructions - Continue regular follow-ups with your breed to wean production technician for fatty liver management. - No need for Hepatitis B treatment at this time; your Hepatitis B serology is consistent with resolved past exposure. - Maintain a healthy lifestyle to support liver function. - Follow up if any new symptoms occur or if you have further health concerns. [facility] Medical History (Updated 12/17/24 @ 12:18 by Meg Martinez MD) Hepatitis B core antibody positive Neuropathy Sleep apnea Shortness of breath Hypoglycemia Asthma-COPD overlap syndrome Pulmonary nodules Hx of renal calculi Hx of allergic rhinitis History of esophageal spasm Hx of chest pain Back pain Osteoarthritis of both hips Hx of goiter History of IBS History of colitis Chronic pain High cholesterol Hx of multiple pulmonary nodules Hypertension PTSD (post-traumatic stress disorder) Panic attacks Dysphagia GERD (gastroesophageal reflux disease) Anxiety Surgical History History of surgery on arm H/O shoulder surgery H/O neck surgery Hx of endoscopy Hx of transurethral resection of prostate Hx of tonsillectomy Hx of colonoscopy History of nasal surgery Hx of left inguinal hernia repair Hx of cervical discectomy Family History Father No problems noted. Mother No problems noted. Social History Household Members: Other Household Members Other:: Mother Alcohol intake: never Patient Tobacco Use Status: Former Tobacco user Tobacco use type: Cigarette Years Smoked: 30 Second Hand Smoke Exposure: No Current occupational status: unemployed Physical Exam Vital Signs: Last Vital Signs Pulse 81 12/17/24 11:28 Pulse Ox 98 12/17/24 11:28 Oxygen Delivery Method Room Air 12/17/24 11:28 BMI result Body Mass Index 26.2 Assessment & Plan Assessment & Plan (1) Hepatitis B core antibody positive: Code(s): R76.8 - Other specified abnormal immunological findings in serum Category: Medical Plan: na (2) Hepatitis B antibody positive: Code(s): R76.8 - Other specified abnormal immunological findings in serum Category: Medical Plan: na Coding Level of Care Code New Pt Level 3 (37982) Diagnoses Hepatitis B core antibody positive R76.8 Hepatitis B antibody positive R76.8
[2024-12-17 11:28] VITALS: PULSE 81; O2SAT 98; BMI 26.2
--- OUTSIDE RECORDS SUMMARY | 2024-12-17 13:11 | XMS_ITS | Encounter Summary ---
Author Organization [facility] Address [address] [place] [address] Phone Care Team Providers Care Preschool Substitute Teacher Name Role Phone Alicja Benton MD Primary Care Provider Reason for Referral * MRI/CAT Scan - Closed Specialty Diagnoses / Procedures Referred By Contac t Referred To Contact Procedures CT Chest Outside (No Interpretation) Chapis Myrick MD Phone: tel: fax: mailto:[email or web address] Referral ID Status Reason Start Date Expiration Date Visits Re quested Visits Authorized [id number] Closed 01/15/2019 01/15/2020 1 1 * MRI/CAT Scan - Closed Specialty Diagnoses / Procedures Referred By Contac t Referred To Contact Procedures CT Chest Outside (No Interpretation) Chapis Myrick MD Phone: tel: fax: mailto:[email or web address] Referral ID Status Reason Start Date Expiration Date Visits Re quested Visits Authorized [id number] Closed 01/15/2019 01/15/2020 1 1 * MRI/CAT Scan - Closed Specialty Diagnoses / Procedures Referred By Contac t Referred To Contact Procedures CT Vascular Outside (No Interpretation) Chapis Myrick MD Phone: tel: fax: mailto:[email or web address] Referral ID Status Reason Start Date Expiration Date Visits Re quested Visits Authorized [id number] Closed 01/15/2019 01/15/2020 1 1 Encounter Details Date Type Department Care Team (Late st Contact Info) Description 01/15/2019 Transcribe Orders [facility] [address] [address] [email or web address] Social History Tobacco Use Types Packs/Day Years [...] Interpretation) (01/15/2019 8:05 AM EDT) Narrative [facility] - 01/15/2019 8:05 AM EDT This study is for PACS storage only and not for interpretation. us Chapis Myrick MD IMG OUTSIDE IMAGING W/OUT IN TERPRETATION Final Result Performing Organization Address [facility] Co de Phone Number [facility] * CT Chest Outside (No Interpretation) (01/15/2019 8:04 AM EDT) Narrative [facility] - 01/15/2019 8:04 AM EDT This study is for PACS storage only and not for interpretation. us Chapis Myrick MD IMG OUTSIDE IMAGING W/OUT IN TERPRETATION Final Result Performing Organization Address [facility] Co de Phone Number [facility] * CT Vascular Outside (No Interpretation) (01/15/2019 8:04 AM EDT) Narrative [facility] - 01/15/2019 8:04 AM EDT This study is for PACS storage only and not for interpretation. us Chapis Myrick MD IMG OUTSIDE IMAGING W/OUT IN TERPRETATION Final Result [facility] documented in this encounter Visit Diagnoses Not on filedocumented in this encounter Care Teams Preschool Substitute Teacher Relationship Specialty Start Date End Date Alicja Benton MD [address] [place] [address] [place] [address] PCP - General Internal Medicine 12/15/18 documented as of this encounter Additional Source Comments The information contained in this document represents components of the legal health record. It is not the complete legal health record.[facility]
--- OUTSIDE RECORDS SUMMARY | 2024-12-17 13:11 | XMS_ITS | Encounter Summary ---
Author Organization [facility] Address [address] [place] [address] Care Team Providers Care Barrel Rifler Name Role Phone Mireya Robledo MD Primary Care Prov ider Reason for Visit * Reason Onset Date Comments Fitting for DME 12/14/2024 Encounter Details Date Type Department Care Team ([facility] st Contact Info) Description 12/14/2024 Telephone Adult Medicine [facility] [address] [place] [phone] Logan Romero PA [address] [place] [address] Social History Tobacco Use Types Packs/Day Years [...] as of this encounter Progress Notes * SERENA Atkisnon - 12/17/2024 12:17 PM EDT Signed. Thank you. * Aicha Del Cid MA - 12/17/2024 10:04 AM EDT Compression stockings In your in basket. Thank you in advance * SERENA Atkinson - 12/14/2024 12:22 PM EDT DME: Please pend order for compression socks due to edema. Thank you documented in this encounter Plan of Treatment Upcoming Encounters Date Type Department Care Team (Late st Contact Info) Description 02/10/2025 10:30 AM EST Office Visit Adult Medicine [facility] [address] [place] [phone] Logan Romero PA [address] [place] [address] 02/15/2025 9:30 AM EST Office Visit Orthopedic Surgery - [place] [address] [facility] [address] [place] [phone] Mina Eckert DPM [address] [phone] 04/07/2025 9:45 AM EST Office Visit Bariatric Surgery [facility] 175 [facility] [address] [place] [phone] Sahara Villela MD [address] [place] [address] documented as of this encounter Visit Diagnoses Diagnosis Pedal edema- Primary Edema documented in this encounter Orders General Supply Count Last Ordered Date First Or dered Date COMPRESSION STOCKINGS 1 12/17/2024 documented in this encounter Care Teams Barrel Rifler Relationship Specialty Start Date End Date Mireya Robledo MD [address] [place] [address] PCP - General Internal Medicine 02/02/24 documented as of this encounter
--- OUTSIDE RECORDS SUMMARY | 2024-12-17 13:11 | XMS_ITS | Encounter Summary ---
Author Organization [facility] Address [address] [facility] [address] [place] [address] Phone Care Team Providers Care Plumbing Assembler Name Role Phone Alicja Benton MD Primary Care Provider Encounter Details Date Type Department Care Team (Late st Contact Info) Description 01/14/2019 Documentation [facility] [address] [place] [id number] No [email or web address] Social History Tobacco Use Types Packs/Day [...] filedocumented in this encounter Care Teams Plumbing Assembler Relationship Specialty Start Date End Date Alicja Benton MD [facility] [place] [address] PCP - General Internal Medicine 12/15/18 documented as of this encounter Additional Source Comments The information contained in this document represents components of the legal health record. It is not the complete legal health record.[facility]
--- OUTSIDE RECORDS SUMMARY | 2024-12-17 13:11 | XMS_ITS | Encounter Summary ---
Author Organization [facility] Address [address] [place] [address] Care Team Providers Care Gas Main Fitter Name Role Phone Mireya Robledo MD Primary Care Prov ider Reason for Visit * Reason Onset Date Comments Results 11/30/2024 [facility] Encounter Details Date Type Department Care Team (Late st Contact Info) Description 11/30/2024 Telephone Adult Medicine - [place] [address] [place] [address] Mireya Robledo MD [address] [place] [address] Social History Tobacco Use Types Packs/Day Years [...] with the lab results dated 11/27/2024 from [facility]. He wouldlike to talk to Dr. Swanson regarding the. He also indicated he received a call from [facility] about infectious disease documented in this encounter Plan of Treatment Upcoming Encounters Date Type Department Care Team (Late st Contact Info) Description 02/10/2025 10:30 AM EST Office Visit Adult Medicine [facility] [address] [place] [phone] Logan Romero PA [address] [place] [address] 02/15/2025 9:30 AM EST Office Visit Orthopedic Surgery - [place] [address] 175 [facility] [address] [place] [phone] Mina Eckert, DPM 175 [facility] [address] [place] [phone] 04/07/2025 9:45 AM EST Office Visit Bariatric Surgery - [place] 175 [facility] [address] [place] [phone] Sahara Villela MD [address] [place] [address] documented as of this encounter Visit Diagnoses Not on filedocumented in this encounter Care Teams Gas Main Fitter Relationship Specialty Start Date End Date Mireya Robledo MD 230 [place] [address] PCP - General Internal Medicine 02/02/24 documented as of this encounter
--- OUTSIDE RECORDS SUMMARY | 2024-12-17 13:11 | XMS_ITS | Encounter Summary ---
Author Organization [facility] Address [address] [address] Phone Care Team Providers Care Hydration Plant Operator Name Role Phone Alicja Benton MD Primary Care Provider Encounter Details Date Type Department Care Team (Late st Contact Info) Description 03/06/2020 Telemedicine [facility] [address] [place] [address] Chapis Myrick MD [address] [place] [phone] [email or web address] Lung nodules (Primary Dx) Social History Tobacco [...] classified documented in this encounter Care Teams Hydration Plant Operator Relationship Specialty Start Date End Date Alicja Benton MD [address] [facility] [address] PCP - General Internal Medicine 12/15/18 documented as of this encounter Additional Source Comments The information contained in this document represents components of the legal health record. It is not the complete legal health record.[facility]
--- OUTSIDE RECORDS SUMMARY | 2024-12-17 13:12 | XMS_ITS | Encounter Summary ---
Author Organization [facility] Address [address] [place] [address] Care Team Providers Care District Attorney Name Role Phone Mireya Robledo MD Primary Care Prov ider Reason for Visit * Reason Onset Date Comments Study Results 11/17/2024 Echocardiogram Encounter Details Date Type Department Care Team ([facility] Contact Info) Description 11/17/2024 Telephone Adult [address] [phone] Ree Beatty [place] Social History Tobacco Use [...] Upcoming Encounters Date Type Department Care Team ([facility] Contact Info) Description 02/10/2025 10:30 AM EST Office Visit Adult Medicine - [place] 230 [place] [phone] Logan Romero PA [address] [place] [address] 02/15/2025 9:30 AM EST Office Visit Orthopedic Surgery - [place] [address] 175 [facility] 250 [place] [phone] Mina Eckert DPM [address] [phone] 04/07/2025 9:45 AM EST Office Visit Bariatric Surgery - [place] 175 [facility] 120 [place] [phone] Sahara Villela MD [address] [place] [phone] documented as of this encounter Visit Diagnoses Not on filedocumented in this encounter Care Teams District Attorney Relationship Specialty Start Date End Date Mireya Robledo MD [address] [place] [address] PCP - General Internal Medicine 02/02/24 documented as of this encounter
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
--- OUTSIDE RECORDS SUMMARY | 2024-12-17 13:12 | XMS_ITS | Patient Health Record ---
Author [facility] Ari[facility] Welsh[facility] Address [address] [place] [address] Care Team Providers Care Wardrobe Attendant Name Role Phone Aston Davison Primary Care Provider Unav Xavi Cortes Unavailable [phone] Allergies Allergen (clinical drug ingredient) Drug/Non Drug [...] TH EVERY DAY Oral; Duration: 90 Active Uyxke-3-bbzp Ethyl Esters 1 GM TAKE 2 CAPSULES [...] Medicare National Govt Svcs [employer] [address] [place] [address] [id number] Jv Monroy Self - patient is the insured 4 Medical (General) History Medical History History ICD Code Arthritis asthma Back,Hip,and Knee pain Broken bones Headaches/Migraines High blood pressure Lung disease nerve disorder Surgical History Surgery Date(Month/Year) cervical fusion hernia leg surgery nose
--- OUTSIDE RECORDS SUMMARY | 2024-12-17 13:12 | XMS_ITS | Encounter Summary ---
Author Organization [facility] Address [address] [place] [address] Care Team Providers Care Preanalytics Team Lead Name Role Phone Mireya Robledo MD Primary Care Prov ider Reason for Visit * Reason Onset Date Comments Provider call 11/18/2024 Encounter Details Date Type Department Care Team ([facility] st Contact Info) Description 11/18/2024 Telephone Adult Medicine [facility] [address] [place] [phone] Mireya Robledo MD [address] [place] [address] Social History Tobacco Use Types Packs/Day Years [...] with pt See prior note * Barbara Guerra - 11/18/2024 9:54 AM EDT Please see scanned in item regarding ( patient letter). Patient received a letter from [facility] regarding his procedure he had done on 11/20/2023, esophageal manometry. The probe that was used did not under go the proper sterilization recommended by the certified ophthalmic technician. Patient states he is starting to get the feeling back in his throat/esophagus again and wants to talk to Dr. Lennon. Patient states that he is receiving calls from [facility], however won't return them. Letter is uploaded into patients chart for PCP to review. documented in this encounter Plan of Treatment Upcoming Encounters Date Type Department Care Team (Late st Contact Info) Description 02/10/2025 10:30 AM EST Office Visit Adult Medicine [facility] [address] [place] [phone] Logan Romero PA [address] [place] [address] 02/15/2025 9:30 AM EST Office Visit Orthopedic Surgery - [place] [address] [facility] [address] [place] [phone] Mina Eckert DPM [address] [facility] [address] [place] [address] 04/07/2025 9:45 AM EST Office Visit Bariatric Surgery - [place] [address] [facility] [address] [place] [address] Sahara Villela MD [address] [place] [phone] documented as of this encounter Visit Diagnoses Not on filedocumented in this encounter Care Teams Preanalytics Team Lead Relationship Specialty Start Date End Date Mireya Robledo MD [address] [place] [id number] PCP - General Internal Medicine 02/02/24 documented as of this encounter
--- OUTSIDE RECORDS SUMMARY | 2024-12-17 13:12 | XMS_ITS | Clinical Summary ---
Author Organization [facility] Address [address] [place] [address] Care Team Providers Care Field Administrative Assistant Name Role Phone Mireya Robledo Primary Care Provide r Unavailable Medications Hospital, Clinic, or Other Facility Administered Medication Ordered Dose Route Frequency Start Date End Date Status lidocaine (XYLOCAINE) 4% (40 mg/mL) topical solution 120 mg 120 mg topical Once 11/20/2023 Active Encounters Date Type Department Care Team Description 11/18/2024 Telephone [facility] Infection Control Department [address] [place] [address] Angel Sal III, MD 11/10/2024 Telephone [facility] Infection Control Department [address] [place] [address] Angel Sal III, MD from Last 3 [...] Zoster Vaccines Completed 11/08/2017, 07/24/2017 Insurance MEDICARE [facility] Care Teams Field Administrative Assistant Relationship Specialty Start Date End Date Mireya Robledo [address] [place] [address] PCP - General Internal Medicine 11/04/23
--- OUTSIDE RECORDS SUMMARY | 2024-12-17 13:12 | XMS_ITS | Clinical Summary ---
Author Organization [facility] Address [address] [place] [address] Care Team Providers Care Bench Hand Name Role Phone Mireya Robledo MD Primary [...] age to complete this topic Care Teams Bench Hand Relationship Specialty Start Date End Date Mireya Robledo MD PCP - General Internal Medicine 05/26/20
--- OUTSIDE RECORDS SUMMARY | 2024-12-17 13:12 | XMS_ITS | Clinical Summary ---
Author Organization [facility] Address [address] [place] [phone] Phone Care Team Providers Care Police Shift Commander Name Role Phone Alicja Benton MD Primary [...] file Insurance MEDICARE PART A & B [facility] MEDICARE PART A & B [place] A & [facility] [place] [facility] & [place] MED[place] A & [facility] Care Teams Police Shift Commander Relationship Specialty Start Date End Date Alicja Benton MD [address] [place] [address] PCP - General Internal Medicine 12/15/18 Additional Source Comments The information contained in this document represents components of the legal health record. It is not the complete legal health record.[facility]
== END 2024-12-17 13:16 | disposition home or self-care (01) ==
LOC: HO.HID 11:22
PROVIDERS: PCP Internal Medicine; Visit Provider Internal Medicine
DX: R76.8 Other specified abnormal immunological findings in serum (principal)
CPT/HCPCS: 99203

== ENCOUNTER → 2024-12-17 11:22 | Outpatient (BNVA) | payer MEDICARE, MEDICAID, SELFPAY | PROVIDERS: PCP Internal Medicine; Visit Provider Internal Medicine | DX: K76.0 Fatty (change of) liver, not elsewhere classified (principal); R76.8 Other specified abnormal immunological findings in serum | CPT/HCPCS: 99202 ==

== ENCOUNTER 2024-12-27 11:10 | Outpatient (AMB) | payer MEDICARE, MEDICAID, SELFPAY ==
--- OUTSIDE RECORDS SUMMARY | 2024-12-27 13:46 | XMS_ITS | Patient Health Record ---
[facility] Address [address] [place] [address] Care Team Providers Care Pile Driving Supervisor Name Role Phone Aston Davison Primary Care Provider Unav ailable Xavi De La Garza Unavailable [phone] Allergies Allergen (clinical drug ingredient) Drug/Non Drug [...] TH EVERY DAY Oral; Duration: 90 Active Opnaw-4-fwlz Ethyl Esters 1 GM TAKE 2 CAPSULES [...] Duration: 30 Active Vitamin D 50 MCG (1999 [place]) TAKE 1 TABLET BY MOUTH EVERY [...] Medicare National Govt Svcs Inc [address] [facility] [place] [address] [id number] Jv Monroy Self - patient is the insured 4 Medical (General) History Medical History History ICD Code Arthritis asthma Back,Hip,and Knee pain Broken bones Headaches/Migraines High blood pressure Lung disease nerve disorder Surgical History Surgery Date(Month/Year) cervical fusion hernia leg surgery nose
--- OUTSIDE RECORDS SUMMARY | 2024-12-27 13:46 | XMS_ITS | Clinical Summary ---
Author Organization [facility] Address [address] [place] [address] Phone Care Team Providers Care Drop Forge Operator Name Role Phone Alicja Benton MD [...] file Insurance MEDICARE PART A & B [facility] MEDICARE PART A & [place] MED[place] PART A & [facility] [place] [facility] PART A & [facility] & [place] MED[place] PART A & [facility] Care Teams Drop Forge Operator Relationship Specialty Start Date End Date Alicja Benton MD [address] [place] [address] PCP - General Internal Medicine 12/15/18 Additional Source Comments The information contained in this document represents components of the legal health record. It is not the complete legal health record.[facility]
--- OUTSIDE RECORDS SUMMARY | 2024-12-27 13:46 | XMS_ITS | Encounter Summary ---
Author Organization [facility] Address [address] [place] [address] Care Team Providers Care Claim Technician Name Role Phone Mireya Robledo MD Primary Care Prov ider Reason for Visit * Reason Onset Date Comments Results 11/30/2024 [facility] Lab Encounter Details Date Type Department Care Team (Late st Contact Info) Description 11/30/2024 Telephone Adult Medicine - [place] [address] [place] [phone] Mireya Robledo MD [address] [place] [address] Social History Tobacco Use Types Packs/Day Years [...] tomorrow and give him a call. He verbalized understanding. * Katia Salinas - 11/30/2024 11:37 AM EDT Pt is very concerned with the lab results dated 11/27/2024 from [facility]. He wouldlike to talk to Dr. Swanson regarding the. He also indicated he received a call from [facility] about infectious disease documented in this encounter Plan of Treatment Upcoming Encounters Date Type Department Care Team (Late st Contact Info) Description 02/10/2025 10:30 AM EST Office Visit Adult Medicine [facility] [address] [place] [phone] Logan Romero PA [address] [place] [address] 02/15/2025 9:30 AM EST Office Visit Orthopedic Surgery - [place] [address] [facility] [address] [place] [phone] Mina Eckert, DPM 175 [facility] 250 [place] [phone] 04/07/2025 9:45 AM EST Office Visit Bariatric Surgery - [place] 175 [facility] [address] [place] [phone] Sahara Villela MD [address] [place] [address] documented as of this encounter Visit Diagnoses Not on filedocumented in this encounter Care Teams Claim Technician Relationship Specialty Start Date End Date Mireya Robledo MD [address] [place] [address] PCP - General Internal Medicine 02/02/24 documented as of this encounter
--- OUTSIDE RECORDS SUMMARY | 2024-12-27 13:46 | XMS_ITS | Clinical Summary ---
Author Organization [facility] Address [address] [place] [address] Care Team Providers Care Financial Service Representative Name Role Phone Mireya Robledo MD Primary [...] age to complete this topic Care Teams Financial Service Representative Relationship Specialty Start Date End Date Mireya Robledo MD PCP - General Internal Medicine 05/26/20
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
--- OUTSIDE RECORDS SUMMARY | 2024-12-27 13:46 | XMS_ITS | Encounter Summary ---
Author Organization [facility] Address [address] [facility] [address] [place] [phone] Phone Care Team Providers Care Paramedical Aide Name Role Phone Alicja Benton MD Primary Care Provider Encounter Details Date Type Department Care Team (Late st Contact Info) Description 01/14/2019 Documentation [facility] [address] [place] [phone] No [email or web address] Social History Tobacco Use Types Packs/Day [...] on filedocumented in this encounter Care Teams Paramedical Aide Relationship Specialty Start Date End Date Alicja Benton MD [facility] [place] [address] PCP - General Internal Medicine 12/15/18 documented as of this encounter Additional Source Comments The information contained in this document represents components of the legal health record. It is not the complete legal health record.[facility]
--- OUTSIDE RECORDS SUMMARY | 2024-12-27 13:46 | XMS_ITS | Encounter Summary ---
Author Organization [facility] Address [address] [address] Phone Care Team Providers Care Manufacturing Maintenance Technician Name Role Phone Alicja Benton MD Primary Care Provider Encounter Details Date Type Department Care Team (Late st Contact Info) Description 03/06/2020 Telemedicine [facility] [address] [place] [phone] Chapis Myrick MD [address] [place] [phone] [email or web address] Lung nodules (Primary Dx) Social History Tobacco [...] classified documented in this encounter Care Teams Manufacturing Maintenance Technician Relationship Specialty Start Date End Date Alicja Benton MD [address] [facility] [place] [address] PCP - General Internal Medicine 12/15/18 documented as of this encounter Additional Source Comments The information contained in this document represents components of the legal health record. It is not the complete legal health record.[facility]
--- OUTSIDE RECORDS SUMMARY | 2024-12-27 13:46 | XMS_ITS | Encounter Summary ---
Author Organization [facility] Address [address] [place] [phone] Phone Care Team Providers Care Tank Truck Driver Name Role Phone Alicja Benton MD Primary Care Provider Reason for Referral * MRI/CAT Scan - Closed Specialty Diagnoses / Procedures Referred By Contac t Referred To Contact Procedures CT Chest Outside (No Interpretation) Chapis Myrick MD Phone: tel: fax: mailto:[email or web address] Referral ID Status Reason Start Date Expiration Date Visits Re quested Visits Authorized [id number] Closed 01/15/2019 01/15/2020 1 1 * MRI/CAT Scan - Closed Specialty Diagnoses / Procedures Referred By Contac t Referred To Contact Procedures CT Chest Outside (No Interpretation) Chapis Myrick MD Phone: tel: fax: mailto:[email or web address] Referral ID Status Reason Start Date Expiration Date Visits Re quested Visits Authorized [id number] Closed 01/15/2019 01/15/2020 1 1 * MRI/CAT Scan - Closed Specialty Diagnoses / Procedures Referred By Contac t Referred To Contact Procedures CT Vascular Outside (No Interpretation) Chapis Myrick MD Phone: tel: fax: mailto:[email or web address] Referral ID Status Reason Start Date Expiration Date Visits Re quested Visits Authorized [id number] Closed 01/15/2019 01/15/2020 1 1 Encounter Details Date Type Department Care Team (Late st Contact Info) Description 01/15/2019 Transcribe Orders [facility] [address] [address] Osiel Rose [address] [place] [phone] [email or web address] Social History Tobacco Use Types Packs/Day Years [...] Interpretation) (01/15/2019 8:05 AM EDT) Narrative [facility] - 01/15/2019 8:05 AM EDT This study is for PACS storage only and not for interpretation. us Chapis Myrick MD IMG OUTSIDE IMAGING W/OUT IN TERPRETATION Final Result Performing Organization Address [facility] de Phone Number [email or web address] * CT Chest Outside (No Interpretation) (01/15/2019 8:04 AM EDT) Narrative [facility] - 01/15/2019 8:04 AM EDT This study is for PACS storage only and not for interpretation. us Chapis Myrick MD IMG OUTSIDE IMAGING W/OUT IN TERPRETATION Final Result Performing Organization Address [facility] Co de Phone Number [email or web address] * CT Vascular Outside (No Interpretation) (01/15/2019 8:04 AM EDT) Narrative [facility] - 01/15/2019 8:04 AM EDT This study is for PACS storage only and not for interpretation. us Chapis Myrick MD IMG OUTSIDE IMAGING W/OUT IN TERPRETATION Final Result [facility] documented in this encounter Visit Diagnoses Not on filedocumented in this encounter Care Teams Tank Truck Driver Relationship Specialty Start Date End Date Alicja Benton MD [facility] [place] [address] PCP - General Internal Medicine 12/15/18 documented as of this encounter Additional Source Comments The information contained in this document represents components of the legal health record. It is not the complete legal health record.[facility]
--- OUTSIDE RECORDS SUMMARY | 2024-12-27 13:47 | XMS_ITS | Clinical Summary ---
Author Organization [facility] Address [address] [place] [address] Care Team Providers Care Customer Service Sales Associate Name Role Phone Mireya Robledo Primary Care Provide r Unavailable Medications Hospital, Clinic, or Other Facility Administered Medication Ordered Dose Route Frequency Start Date End Date Status lidocaine (XYLOCAINE) 4% (40 mg/mL) topical solution 120 mg 120 mg topical Once 11/20/2023 Active Encounters Date Type Department Care Team Description 11/18/2024 Telephone [facility] Infection Control Department [address] [place] [address] Angel Sal III, MD 11/10/2024 Telephone [facility] Infection Control Department [address] [place] [address] Angel Sal III, MD from Last 3 [...] Zoster Vaccines Completed 11/08/2017, 07/24/2017 Insurance MEDICARE [facility] Care Teams Customer Service Sales Associate Relationship Specialty Start Date End Date Mireya Robledo [address] [place] [address] PCP - General Internal Medicine 11/04/23
== END 2024-12-27 11:17 | disposition home or self-care (01) ==
LOC: HO.HMGAL 11:10
PROVIDERS: PCP Internal Medicine; Visit Provider Registered Nurse Emergency
DX: J30.89 Other allergic rhinitis (principal)
CPT/HCPCS: 95117; 95165

== ENCOUNTER 2025-01-05 13:47 | Outpatient (AMB) | payer MEDICARE, MEDICAID, SELFPAY ==
--- OUTSIDE RECORDS SUMMARY | 2025-01-05 17:31 | XMS_ITS | Encounter Summary ---
Author Organization [facility] Address [address] [address] Phone Care Team Providers Care Concrete Paving Supervisor Name Role Phone Alicja Benton MD Primary Care Provider Encounter Details Date Type Department Care Team (Late st Contact Info) Description 03/06/2020 Telemedicine [facility] [address] [place] [phone] Chapis Myrick MD [address] [place] [phone] [email or web address] Lung nodules (Primary Dx) Social [...] classified documented in this encounter Care Teams Concrete Paving Supervisor Relationship Specialty Start Date End Date Alicja Benton MD [address] [place] [address] PCP - General Internal Medicine 12/15/18 documented as of this encounter Additional Source Comments The information contained in this document represents components of the legal health record. It is not the complete legal health record.[facility]
--- OUTSIDE RECORDS SUMMARY | 2025-01-05 17:31 | XMS_ITS | Encounter Summary ---
Author Organization [facility] Address [address] [place] [address] Care Team Providers Care Garbage Depot Worker Name Role Phone Mireya Robledo MD Primary Care Prov ider Reason for Visit * Reason Onset Date Comments Results 11/30/2024 [facility] Lab Encounter Details Date Type Department Care Team (Late st Contact Info) Description 11/30/2024 Telephone Adult Medicine - [place] [address] [place] [phone] Mireya Robledo MD [address] [place] [address] Social History Tobacco Use Types Packs/Day Years [...] with the lab results dated 11/27/2024 from [facility]. He wouldlike to talk to Dr. Swanson regarding the. He also indicated he received a call from [facility] about infectious disease documented in this encounter Plan of Treatment Upcoming Encounters Date Type Department Care Team (Late st Contact Info) Description 02/10/2025 10:30 AM EST Office Visit Adult Medicine [facility] [address] [place] [phone] Logan Romero PA [address] [place] [address] 02/15/2025 9:30 AM EST Office Visit Orthopedic Surgery - [place] 250 175 [facility] [address] [place] [phone] Mina Eckert, DPM 175 [facility] 250 [place] [phone] 04/07/2025 9:45 AM EST Office Visit Bariatric Surgery - [place] 175 [facility] [address] [place] [phone] Sahara Villela MD [address] [place] [address] documented as of this encounter Visit Diagnoses Not on filedocumented in this encounter Care Teams Garbage Depot Worker Relationship Specialty Start Date End Date Mireya Robledo MD [address] [place] [address] PCP - General Internal Medicine 02/02/24 documented as of this encounter
--- OUTSIDE RECORDS SUMMARY | 2025-01-05 17:31 | XMS_ITS | Patient Health Record ---
[facility] Arielle Welshley Address [address] [place] [address] Care Team Providers Care Beveller Operator Name Role Phone Aston Davison Primary Care Provider Unav ailable Xavi De La Garza Unavailable [phone] Allergies Allergen (clinical drug ingredient) Drug/Non Drug [...] on feet; Duration: 30 days 04/02/2019 Active Daily-Ashlye - TAKE 1 TABLET BY LAUREN TH EVERY DAY Oral; Duration: 30 Active Dexilant 60 MG TAKE 1 CAPSULE BY MO UTH EVERY DAY Oral; Duration: 30 Active Levocetirizine Dihydrochloride 5 MG TAKE 1 TABLET BY MOUTH EVERY DAY IN THE EVENING Oral; Duration: 90 Active Lisinopril 5 MG TAKE 1 TABLET BY LAUREN TH EVERY DAY Oral; Duration: 90 Active [id number] Ethyl Esters 1 GM TAKE 2 CAPSULES [...] [employer] [address] [place] [address] [id number] Jv Monroy Self - patient is the insured 4 Medical (General) History Medical History History ICD Code Arthritis asthma Back,Hip,and Knee pain Broken bones Headaches/Migraines High blood pressure Lung disease nerve disorder Surgical History Surgery Date(Month/Year) cervical fusion hernia leg surgery nose
--- OUTSIDE RECORDS SUMMARY | 2025-01-05 17:31 | XMS_ITS | Encounter Summary ---
Author Organization [facility] Address [address] [place] [address] Care Team Providers Care Community Case Manager Name Role Phone Mireya Robledo MD Primary Care Prov ider Reason for Visit * Reason Onset Date Comments Medical Records 11/29/2024 Encounter Details Date Type Department Care Team (Late st Contact Info) Description 11/29/2024 Telephone [facility] Cardiology [facility] [address] [place] [phone] Provider, Not In System Social History Tobacco Use Types Packs/Day Years [...] as of this encounter Progress Notes * Karime Navarro - 01/03/2025 9:33 AM EDT Faxed 11/12/2024 Echo report to [facility] at [phone] on 11/29/2024. documented in this encounter Plan of Treatment Upcoming Encounters Date Type Department Care Team (Late st Contact Info) Description 02/10/2025 10:30 AM EST Office Visit Adult Medicine - [place] [address] [place] [phone] Logan Romero PA [address] [place] [address] 02/15/2025 9:30 AM EST Office Visit Orthopedic Surgery - [place] [address] [facility] [address] [place] [address] Mina Eckert DPM 175 [facility] 250 [place] [phone] 04/07/2025 9:45 AM EST Office Visit Bariatric Surgery - [place] 175 [facility] [address] [place] [phone] Sahara Villela MD [address] [place] [phone] documented as of this encounter Visit Diagnoses Not on filedocumented in this encounter Care Teams Community Case Manager Relationship Specialty Start Date End Date Mireya Robledo MD [address] [place] [address] PCP - General Internal Medicine 02/02/24 documented as of this encounter
--- OUTSIDE RECORDS SUMMARY | 2025-01-05 17:31 | XMS_ITS | Encounter Summary ---
Author Organization [facility] Address [address] [place] [address] Phone Care Team Providers Care Case Filler Name Role Phone Alicja Benton MD Primary Care Provider Reason for Referral * MRI/CAT Scan - Closed Specialty Diagnoses / Procedures Referred By Contac t Referred To Contact Procedures CT Chest Outside (No Interpretation) Chapis Myrick MD Phone: tel: fax: mailto:[email or web address] Referral ID Status Reason Start Date Expiration Date Visits Re quested Visits Authorized [id number] Closed 01/15/2019 01/15/2020 1 1 * MRI/CAT Scan - Closed Specialty Diagnoses / Procedures Referred By Contac t Referred To Contact Procedures CT Chest Outside (No Interpretation) Chapis Myrick MD Phone: tel: fax: mailto:[email or web address] Referral ID Status Reason Start Date Expiration Date Visits Re quested Visits Authorized [id number] Closed 01/15/2019 01/15/2020 1 1 * MRI/CAT Scan - Closed Specialty Diagnoses / Procedures Referred By Contac t Referred To Contact Procedures CT Vascular Outside (No Interpretation) Chapis Myrick MD Phone: tel: fax: mailto:[email or web address] Referral ID Status Reason Start Date Expiration Date Visits Re quested Visits Authorized [id number] Closed 01/15/2019 01/15/2020 1 1 Encounter Details Date Type Department Care Team (Late st Contact Info) Description 01/15/2019 Transcribe Orders [facility] [address] [address] Osiel Rose [address] [place] [id number] [email or web address] Social History Tobacco Use Types [...] (No Interpretation) (01/15/2019 8:05 AM EDT) Narrative [facility] - 01/15/2019 8:05 AM EDT This study is for PACS storage only and not for interpretation. us Chapis Myrick MD IMG OUTSIDE IMAGING W/OUT IN TERPRETATION Final Result Performing Organization Address [facility] de Phone Number [email or web address] * CT Chest Outside (No Interpretation) (01/15/2019 8:04 AM EDT) Narrative [facility] - 01/15/2019 8:04 AM EDT This study is for PACS storage only and not for interpretation. us Chapis Myrick MD IMG OUTSIDE IMAGING W/OUT IN TERPRETATION Final Result Performing Organization Address [facility] Co de Phone Number [email or web address] * CT Vascular Outside (No Interpretation) (01/15/2019 8:04 AM EDT) Narrative [facility] - 01/15/2019 8:04 AM EDT This study is for PACS storage only and not for interpretation. us Chapis Myrick MD IMG OUTSIDE IMAGING W/OUT IN TERPRETATION Final Result [facility] documented in this encounter Visit Diagnoses Not on filedocumented in this encounter Care Teams Case Filler Relationship Specialty Start Date End Date Alicja Benton MD [facility] [place] [address] PCP - General Internal Medicine 12/15/18 documented as of this encounter Additional Source Comments The information contained in this document represents components of the legal health record. It is not the complete legal health record.[facility]
--- OUTSIDE RECORDS SUMMARY | 2025-01-05 17:31 | XMS_ITS | Clinical Summary ---
Author Organization [facility] Address [address] [place] [address] Care Team Providers Care Diesel Fleet Mechanic Name Role Phone Mireya Robledo MD Primary [...] age to complete this topic Care Teams Diesel Fleet Mechanic Relationship Specialty Start Date End Date Mireya Robledo MD PCP - General Internal Medicine 05/26/20
--- OUTSIDE RECORDS SUMMARY | 2025-01-05 17:31 | XMS_ITS | Clinical Summary ---
Author Organization [facility] Address [address] [place] [address] Phone Care Team Providers Care License Issuer Name Role Phone Alicja Benton MD Primary [...] Booster 11/30/2025 12/01/2015 LIPID PANEL 05/14/2028 05/14/2023 RSV VACCINE (1 - 1-dose 75+ series) 07/16/2042 MENINGOCOCCAL VACCINES (ACWY) Aged Out 01/13/2016 No [...] file Insurance MEDICARE PART A & B [facility] MEDICARE PART A & B [place] [facility] [place] [facility] [facility] & [place] [facility] Care Teams License Issuer Relationship Specialty Start Date End Date Alicja Benton MD [address] [facility] [place] [address] PCP - General Internal Medicine 12/15/18 Additional Source Comments The information contained in this document represents components of the legal health record. It is not the complete legal health record.[facility]
--- OUTSIDE RECORDS SUMMARY | 2025-01-05 17:31 | XMS_ITS | Encounter Summary ---
Author Organization [facility] Address [address] [facility] [address] [place] [address] Phone Care Team Providers Care Home Health Lpn Name Role Phone Alicja Benton MD Primary Care Provider Encounter Details Date Type Department Care Team (Late st Contact Info) Description 01/14/2019 Documentation [facility] [address] [place] [address] No [email or web address] Social History Tobacco Use Types Packs/Day Years [...] filedocumented in this encounter Care Teams Home Health Lpn Relationship Specialty Start Date End Date Alicja Benton MD [facility] [place] [address] PCP - General Internal Medicine 12/15/18 documented as of this encounter Additional Source Comments The information contained in this document represents components of the legal health record. It is not the complete legal health record.[facility]
--- OUTSIDE RECORDS SUMMARY | 2025-01-05 17:31 | XMS_ITS | Clinical Summary ---
Author Organization [facility] Address [address] [place] [address] Care Team Providers Care Process Improvement Consultant Name Role Phone Mireya Robledo Primary Care Provide r Unavailable Medications Hospital, Clinic, or Other Facility Administered Medication Ordered Dose Route Frequency Start Date End Date Status lidocaine (XYLOCAINE) 4% (40 mg/mL) topical solution 120 mg 120 mg topical Once 11/20/2023 Active Encounters Date Type Department Care Team Description 11/18/2024 Telephone [facility] Infection Control Department [address] [place] [address] Angel Sal III, MD 11/10/2024 Telephone [facility] Infection Control Department [address] [place] [address] Angel Sal III, MD from Last 3 [...] Zoster Vaccines Completed 11/08/2017, 07/24/2017 Insurance MEDICARE [facility] Care Teams Process Improvement Consultant Relationship Specialty Start Date End Date Mireya Robledo [address] [place] [address] PCP - General Internal Medicine 11/04/23
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
== END 2025-01-05 13:48 | disposition home or self-care (01) ==
LOC: HO.HMGAL 13:47
PROVIDERS: PCP Internal Medicine; Visit Provider Registered Nurse Emergency
DX: J30.89 Other allergic rhinitis (principal)
CPT/HCPCS: 95117; 95165

== ENCOUNTER 2025-01-12 11:38 | Outpatient (AMB) | payer MEDICARE, MEDICAID, SELFPAY | END 2025-01-12 11:39 | disposition home or self-care (01) | LOC: HO.HMGAL 11:38 | PROVIDERS: PCP Internal Medicine; Visit Provider Registered Nurse Emergency | DX: J30.89 Other allergic rhinitis (principal) | CPT/HCPCS: 95117; 95165 ==

== ENCOUNTER 2025-01-17 07:41 | Outpatient (REF) | payer MEDICARE, MEDICAID, SELFPAY ==
--- NOTE | ~2025-01-17 | FL_ITS ---
EXAMINATION: XR BARIUM SWALLOW CLINICAL INFORMATION: Dysphagia COMPARISON: None available. TECHNIQUE: Routine upright barium swallow with thick barium, barium coated saltine crackers and barium tablet was performed in upright view. FINDINGS: Following oral administration of thin barium in upright view there is normal propagation bolus from the oral cavity through the pharynx, esophagus into stomach without any evidence of obstruction, narrowing or stricture. There is small sliding hiatal hernia noted. On oral administration of barium tablet there is spontaneous passage of tablet from the oral cavity through the pharynx, esophagus into stomach. On oral administration of barium coated saltine crackers with barium paste there is normal oral mastication and propagation of bolus from the oral cavity through the pharynx, esophagus into stomach. No obstruction narrowing seen. On placing prone lying and oral administration of thin barium there is good distention of esophagus without intraluminal filling defect or extrinsic compression. In supine view there is a small hiatal hernia with trace reflux. FLUOROSCOPY TIME: 2 minute 42 seconds DOSE AREA PRODUCT: 1385 uGy-m2 (microgray-meter squared) FL/FL barium swallow IMPRESSION: Small sliding hiatal hernia with trace reflux. Electronically signed by: Osiel Sparks MD 01/17/2025 03:38 PM EDT
--- OUTSIDE RECORDS SUMMARY | 2025-01-17 07:43 | XMS_ITS | Encounter Summary ---
Author Organization [facility] Address [address] [address] Phone Care Team Providers Care Commercial Truck Driver Name Role Phone Alicja Benton MD Primary Care Provider Encounter Details Date Type Department Care Team (Late st Contact Info) Description 03/06/2020 Telemedicine [facility] [address] [place] [phone] Chapis Myrick MD [address] [place] [phone] [email or web address] Lung nodules (Primary Dx) Social History Tobacco [...] classified documented in this encounter Care Teams Commercial Truck Driver Relationship Specialty Start Date End Date Alicja Benton MD [address] [facility] [place] [address] PCP - General Internal Medicine 12/15/18 documented as of this encounter Additional Source Comments The information contained in this document represents components of the legal health record. It is not the complete legal health record.[facility]
--- OUTSIDE RECORDS SUMMARY | 2025-01-17 07:43 | XMS_ITS | Patient Health Record ---
[facility] Organization [facility] Ari[facility] Welshley Address [address] [place] [address] Care Team Providers [employer] Truck Driver Name Role Phone Aston Davison Primary Care Provider Unav ailable Xavi De La Garza Unavailable [phone] Allergies Allergen (clinical drug ingredient) Drug/Non Drug [...] TH EVERY DAY Oral; Duration: 90 Active [id number] Ethyl Esters 1 GM TAKE 2 CAPSULES [...] National Gov[employer] [address] [place] [address] [id number] Jv Monroy Self - patient is the insured 4 Medical (General) History Medical History History ICD Code Arthritis asthma Back,Hip,and Knee pain Broken bones Headaches/Migraines High blood pressure Lung disease nerve disorder Surgical History Surgery Date(Month/Year) cervical fusion hernia leg surgery nose
--- OUTSIDE RECORDS SUMMARY | 2025-01-17 07:43 | XMS_ITS | Encounter Summary ---
Author Organization [facility] Address [address] [facility] [address] [place] [address] Phone Care Team Providers Care Meat Team Lead Name Role Phone Alicja Benton MD Primary Care Provider Encounter Details Date Type Department Care Team (Late st Contact Info) Description 01/14/2019 Documentation [facility] [address] [place] [phone] No [email or web address] Social History Tobacco Use Types Packs/Day [...] on filedocumented in this encounter Care Teams Meat Team Lead Relationship Specialty Start Date End Date Alicja Benton MD [facility] [address] PCP - General Internal Medicine 12/15/18 documented as of this encounter Additional Source Comments The information contained in this document represents components of the legal health record. It is not the complete legal health record.[facility]
--- OUTSIDE RECORDS SUMMARY | 2025-01-17 07:43 | XMS_ITS | Clinical Summary ---
Author Organization [facility] Address [address] [place] [address] Phone Care Team Providers Care Cooker Loader Name Role Phone Mireya Robledo MD Primary [...] 4 (four) hours if needed. 4 Active MetamuciL 0.4 gram capsule TAKE 3 CAPSULES (1,200 MG TOTAL) BY MOUTH 4 (FOUR) TIMES A DAY. 360 capsule 5 Active Daily-Ashley, with folic acid, 400 mcg tablet TAKE 1 TABLET BY MOUTH EVERY DAY 90 tablet 1 5 Active clotrimazole (LOTRIMIN) 1 % cream Apply [...] a day. 180 tablet 1 5 Active cholecalciferol (VITAMIN D-3) 50 mcg (2,000 unit) capsule TAKE 1 CAPSULE (2,000 UNITS TOTAL) BY MOUTH ONCE DAILY 90 capsule 1 5 Active atorvastatin (LIPITOR) 20 mg tablet TAKE 1 TABLET BY MOUTH EVERY DAY 90 tablet 5 Active oxyCODONE (ROXICODONE) 20 mg immediate release tabletIndications :Chronic pain disorder,Chronic left shoulder pain Take 1 tablet (20 mg total) by mouth 3 (three) times a day. Max Daily Amount: 60 mg 84 tablet 5 Active oxyCODONE (ROXICODONE) 10 mg immediate release tabletIndications :Chronic pain disorder,Chronic left shoulder pain Take 1 tablet (10 mg total) by mouth every 8 (eight) hours if needed for severe pain (breaktrough pain) for up to 28 days. Max Daily Amount: 30 mg 84 tablet 5 025 Active oxyCODONE (ROXICODONE) 10 mg immediate release tabletIndications :Chronic pain disorder,Chronic left shoulder pain Take 1 tablet (10 mg total) by mouth every 8 (eight) hours if needed for severe pain (breaktrough pain) for up to 28 days. Max Daily Amount: 30 mg 84 tablet 5 025 Discontin ued(Reord er) oxyCODONE (ROXICODONE) 20 mg immediate release tabletIndications :Chronic pain disorder,Chronic left shoulder pain Take 1 [...] gave him some information on a local airframe design engineer as that is another reasonable conservative modality. He is welcome to follow-up with us in the future on an as-needed basis. 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 Talley is a 56-year-old male with a history of mild achalasia who on May 23, 2021 had a robotic laparoscopic Heller myotomy and Celestino fundoplication. Patient now complains of intermittent esophageal spasms after ingesting very cold water and [place] mints. His barium swallow performed today on [...] 01/29/2021 COPD (chronic obstructive pu lmonary disease) ([facility] V24, [facility] V28) 01/29/2021 Cervical radiculopathy at C6 06/14/2020 Anxiety 03/10/2020 BPH (benign prostatic hyperplasia) 03/10/2020 Chronic pain disorder 03/10/2020 Erectile dysfunction 03/10/2020 Insomnia 03/10/2020 Large thymus ([facility] V24) 03/10/2020 Overview (12/26/2023): Stable since [...] GERD (gastroesophageal reflux disease) 9 Emphysema lung ([facility] V24, [facility] V28) 2017 Nodule of left lung 07/30/2017 Overview (12/26/2023): Last Assessment & Plan: Patient does have a significant smoking history with a pack year total of 30 and is a candidate for lung cancer screening. I will refer the patient to lung cancer screening program at [facility]. Tubular adenoma of colon 11/12/2016 Hyperlipidemia 11/10/2009 Hypertension 09/21/2009 Agoraphobia with panic disorder 07/13/2008 Posttraumatic stress disorder 07/13/2008 Allergic rhinitis 02/02/2008 Overview (12/26/2023): Failed Flonase, Nasonex Asthma 02/02/2008 Severe bipolar I disorder, c urrent or most recent episode mixed ([facility] V24, [facility] V28) 02/02/2008 Overview (12/26/2023): history of hospitalization Psychologist Dr. Derrek Downs [facility] Service - [phone] Encounters Date Type Department Care Team Description 12/14/2024 10:00 AM EDT Office Visit Adult Medicine [address] [phone] Logan Romero PA Chronic pain disorder (Primary Dx); Opioid contract exists; History of shoulder surgery; Chronic left shoulder pain; Achalasia, esophageal; Myofascial pain; Anxiety; Pedal edema 12/14/2024 Telephone Adult Medicine [facility] [address] [place] [address] Logan Romero PA 12/07/2024 Telephone Adult [address] [phone] Mireya Martin MD 11/30/2024 Telephone Adult Medicine - [place] [address] [place], [place] [phone] Mireya Martin MD 11/29/2024 Telephone [facility] - [address] [place] [address] Provider, Not In System 11/18/2024 Telephone [facility] [address] [place], [place] [phone] Mireya Martin MD 11/18/2024 Telephone [facility] [address] [place], [place] [phone] Mireya Martin MD 11/17/2024 Telephone Adult Medicine - [place] [address] [place] [address] Ree Beatty [place] 11/12/2024 1:30 PM EDT Ancillary Procedure [facility] - [place] [address] [place] [address] Chest pain, unspecified type 11/03/2024 Telephone Adult Medicine - [place] [address] [place] [address] Mireya Martin MD 11/03/2024 Telephone Adult Medicine - [place] [address] [place] [address] Ree Beatty [place] 11/02/2024 Telephone Adult Medicine - [place] [address], [place] [phone] Mireya Martin MD 10/22/2024 10:00 AM EDT Consult Adult Medicine - [place] [address] [place] [address] Mireya Martin MD Preop examination (Primary Dx); Chronic postrheumatic arthropathy (jaccoud), left shoulder (CMS/HCC V24, CMS/HCC V28) 10/20/2024 9:30 AM EDT Office Visit Adult Medicine [address] [phone] Mireya Martin MD Chest pain, unspecified type (Primary Dx); Achalasia, esophageal; Bilateral leg pain from Last 3 Months Immunizations Immunization Administration [...] OTHER SURGICAL HISTORY 08/30/19 18 Left PROCEDURE: PA ENDOVEN ABLTJ INCMPTNT VEIN XTR LASER 1ST VEIN; COMMENT: EVLT, Dr Crews HERNIA REPAIR 04/05/19 17 Left PROCEDURE: HISTORICAL HERNIA REPAIR/ING; COMMENT: Dr Lacy OTHER SURGICAL HISTORY 2017 PROCEDURE: PA TOTAL DISC ARTHRP ANT SINGLE INTERSPACE CERVICAL; COMMENT: C5-C6 OTHER SURGICAL HISTORY 03/20/20 17 Left PROCEDURE: PA RMVL PROSTC MATRL/MESH ABDL WALL FOR INFECTION; COMMENT: Laparopscopic removal of L inguinal hernia mesh OTHER SURGICAL HISTORY 12/17/19 17 PROCEDURE: HISTORY OTHER; COMMENT: Removal C5-6 Total disc arthroplasty c5-c6 discectomy,decompression & interbody fusion, bone allograft, ant plate fixation OTHER SURGICAL HISTORY 04/21/19 16 Left PROCEDURE: PA STAB PHLEBT VARICOSE VEINS 1 XTR 10-20 STAB INCS OTHER SURGICAL HISTORY 04/14/19 16 Left PROCEDURE: PA ENDOVEN ABLTJ INCMPTNT VEIN XTR LASER 1ST VEIN; COMMENT: Radiofrequency ablation Lt lerg TURP / TRANSURETHRAL INCISIO N / DRAINAGE PROSTATE 2.30.20 PROCEDURE: HISTORICAL TURP; COMMENT: Partial OTHER SURGICAL HISTORY 03/03/20 19 PROCEDURE: PA EGD DILATION GASTRIC/DUODENAL STRICTURE; COMMENT: Schatzki ring, mild esophagitis, tear distal esophagus,& superficial proximal esophageal tear LEG SURGERY PROCEDURE: HISTORICAL LEG SURGERY NOSE SURGERY PROCEDURE: PA UNLISTED PROCEDURE NOSE COLONOSCOPY 2017 PROCEDURE: HISTORICAL COLONOSCOPY; COMMENT: [facility] TONSILLECTOMY PROCEDURE: HISTORICAL TONSILLECTOMY ESOPHAGOGASTRODUODENOSCOPY 07/06/19 PROCEDURE: PA ESOPHAGOGASTRODUODENOSCOPY TRANSORAL DIAGNOSTIC; COMMENT: stricture possible related [...] c urrent or most recent episode mixed ([facility] V24, [facility] V28) 02/02/2008 DX:Severe bipolar I disorder , current or most recent episode mixed ([facility]); COMMENT: history of hospitalization Psychologist Dr. Derrek Downs [facility] - [phone] Hypertension 09/21/2009 DX:Hypertension KATHLEEN (obstructive sleep apnea) [...] Meyer), f/u on SIEP periodically Large thymus ([facility] V24) 03/10/2020 DX:La rge thymus ([facility]); COMMENT: Stable since 2013, seen by Oncology 11/2018) - No symptoms to suggest a thyoma, No Further Workup is Needed Chronic pain disorder 03/10/2020 DX:Chronic pain disorder Emphysema lung ([facility] V24, [facility] V28) 07/30/2017 DX:Emphysema lung ([facility]) Esophageal stricture 02/07/2020 DX:Esophage al stricture GERD (gastroesophageal reflu x disease) 10/11/2018 DX:GERD (gastroesophageal re flux disease) History of substance abuse ( [facility] V24, [facility] V28) 02/08/2020 DX:History of substance abus e ([facility]); COMMENT: Alcohol, Cocaine Hyperlipidemia 11/10/2009 DX:Hyperlipidemi a Pulmonary nodules 07/30/2017 DX:Pulmonary n odules COPD (chronic obstructive pu lmonary disease) ([facility] V24, [facility] V28) 01/29/2021 DX:COPD (chronic o bstructive pulmonary disease) ([facility]) Dysphagia 01/29/2021 DX:Dysphagia Cervical radiculopathy at [...] 10:30 AM EST Office Visit Adult Medicine [facility] [address] [place] [phone] Logan Romero PA [address] [place] [address] 02/15/2025 9:30 AM EST Office Visit Orthopedic Surgery - [place] [address] [address] [facility] [address] [place] [address] Mina Eckert DPM [address] [phone] 04/07/2025 9:45 AM EST Office Visit Bariatric Surgery - [place] 175 [facility] [address] [place] [phone] Sahara Villela MD [address] [place] [phone] Health Maintenance Due Date Last Done Comments [...] 12/11/2023 HM HEPATITIS C SCREENING Routine 08/20/2023 COLONOSCOPY Routine 05/09/2022 from Last 3 Months or Most Recently Relevant to Health Maintenance Results * External clinical lab (11/29/2024) us Provider [facility] LAB BLOOD ORDERABLES Fin al Result * (ABNORMAL) TRANSTHORACIC ECHOCARDIOGRAM (TTE) COMPLETE (11/12/2024 2:22 PM EDT) Left [facility] Minor Mcintire 5.2 cm CV PACS Left Atrium Major Mcintire 5.5 cm CV PACS [place] Area Sys [...] Signed Date: 07/06/2024 08:35 ET Workstation ID: [id number] Transcribed By: Self Edit Transcribed Date: 07/06/2024 [...] nodule posterolateral right lower lobe 07/02/24-0.3 cm (175) 06/27/23-0.3 cm Unchanged cystic abnormality with slight eccentric wall thickeningabutting the posterior aspect of the peripheral third of the right majorfissure (118) OTHER PULMONARY: There is moderate centrilobular emphysema. [...] Signed Date: 07/06/2024 08:35 ET Workstation ID: [id number] Transcribed By: Self Edit Transcribed Date: 07/06/2024 08:25 ET us Olga Ochoa MD [facility] CT PROCEDURES Final Result * (ABNORMAL) Comprehensive metabolic panel (05/28/2024 11:04 AM EST) Sodium 142 133 - 145 mmol/L LAB CHEMISTRY METHOD 05/28/2024 4:05 PM EST [facility] Potassium 4.1 3.5 - 5.5 mmol/L LAB CHEMISTRY METHOD 05/28/2024 4:05 PM [facility] Chloride 108 96 - 110 mmol/L LAB CHEMISTRY METHOD 05/28/2024 4:05 PM [facility] CO2 25 21 - 32 mmol/L LAB CHEMISTRY METHOD 05/28/2024 4:05 PM [facility] Anion Gap 9 3 - 11 LAB CHEMISTRY METHOD 05/28/2024 4:05 PM [facility] Glucose 83 70 - 100 mg/dL LAB CHEMISTRY METHOD 05/28/2024 4:05 PM [facility] BUN 8 5 - 25 mg/dL LAB CHEMISTRY METHOD 05/28/2024 4:05 PM [facility] Creatinine 0.82 0.70 - 1.30 mg/dL LAB CHEMISTRY METHOD 05/28/2024 4:05 PM [facility] eGFR 103 >=60 mL/min/1. 73m2 LAB CHEMISTRY METHOD 05/28/2024 4:05 PM [facility] Comment:Calculation based on the Chronic Kidney Disease Epidemiology Collaboration (CKD-EPI) equation refit without adjustment for race. BUN/Creatinine Ratio 9.8 LAB CHEMISTRY METHOD 05/28/2024 4:05 PM [facility] Calcium 9.1 8.5 - 10.5 mg/dL LAB CHEMISTRY METHOD 05/28/2024 4:05 PM [facility] AST (SGOT) 25 10 - 42 unit/L LAB CHEMISTRY METHOD 05/28/2024 4:05 PM [facility] ALT (SGPT) 72(H) 10 - 60 unit/L LAB CHEMISTRY METHOD 05/28/2024 4:05 PM [facility] Alkaline Phosphatase 89 42 - 121 unit/L LAB CHEMISTRY METHOD 05/28/2024 4:05 PM [facility] Total Protein 7.2 6.0 - 8.0 g/dL LAB CHEMISTRY METHOD 05/28/2024 4:05 PM EST [facility] Albumin 4.0 3.2 - 5.0 g/dL LAB CHEMISTRY METHOD 05/28/2024 4:05 PM EST [facility] Total Bilirubin 0.3 0.0 - 1.4 mg/dL LAB CHEMISTRY METHOD 05/28/2024 4:05 PM EST [facility] Blood Venous blood specimen / Unknown Venipuncture / Unknown 05/28/2024 11:04 AM EST 05/28/2024 11:04 AM EST Logan LYONS LAB BLOOD ORDERABLES Final Res ult [facility] [address] [place] [address], * (ABNORMAL) Lipid [facility] (12/11/2023) [facility] LDL[facility]HDL [facility] 4 0 - 4 Triglycerides 248(A) 0 - 150 mg/dL Cholesterol 144 0 - 200 mg/dL HDL 37(A) >=40 mg/dL LDL Cholesterol 58 0 - 100 mg/dL Blood Venous blood specimen / Unknown Historical Provider LAB BLOOD ORDERABLES Kiara l Result * Hepatitis C Screening (08/20/2023) Pathologist [facility] Hepatitis C Screening abstracted Historical Provider HEALTH MAINTENANCE Final Result * Colonoscopy (05/09/2022) Pathologist [facility] Colonoscopy abstracted, no interpretation Anatomical Region Laterality Modality Other Historical Provider HEALTH MAINTENANCE Final Result from Last 3 Months or Most Recently Relevant to Health Maintenance Insurance MEDICARE [place] - [place] Care Teams Cooker Loader Relationship Specialty Start Date End Date Mireya Robledo MD [address] [place] [phone] PCP - General Internal Medicine 02/02/24
--- OUTSIDE RECORDS SUMMARY | 2025-01-17 07:43 | XMS_ITS | Encounter Summary ---
Author Organization [facility] Address [address] [place] [phone] Phone Care Team Providers Care Senior Commercial Loan Officer Name Role Phone Alicja Benton MD Primary Care Provider Reason for Referral * MRI/CAT Scan - Closed Specialty Diagnoses / Procedures Referred By Contac t Referred To Contact Procedures CT Chest Outside (No Interpretation) Chapis Myrick MD Phone: tel: fax: mailto:[email or web address] Referral ID Status Reason Start Date Expiration Date Visits Re quested Visits Authorized [id number] Closed 01/15/2019 01/15/2020 1 1 * MRI/CAT Scan - Closed Specialty Diagnoses / Procedures Referred By Contac t Referred To Contact Procedures CT Chest Outside (No Interpretation) Chapis Myrick MD Phone: tel: fax: mailto:[email or web address] Referral ID Status Reason Start Date Expiration Date Visits Re quested Visits Authorized [id number] Closed 01/15/2019 01/15/2020 1 1 * MRI/CAT Scan - Closed Specialty Diagnoses / Procedures Referred By Contac t Referred To Contact Procedures CT Vascular Outside (No Interpretation) Chapis Myrick MD Phone: tel: fax: mailto:[email or web address] Referral ID Status Reason Start Date Expiration Date Visits Re quested Visits Authorized [id number] Closed 01/15/2019 01/15/2020 1 1 Encounter Details Date Type Department Care Team (Late st Contact Info) Description 01/15/2019 Transcribe Orders [facility] [address] [address] Osiel Rose [address] [place] [phone] [email or web address] Social History Tobacco Use Types Packs/Day Years [...] Interpretation) (01/15/2019 8:05 AM EDT) Narrative [facility] - 01/15/2019 8:05 AM EDT This study is for PACS storage only and not for interpretation. us Chapis Myrick MD IMG OUTSIDE IMAGING W/OUT IN TERPRETATION Final Result Performing Organization Address [facility] de Phone Number [email or web address] * CT Chest Outside (No Interpretation) (01/15/2019 8:04 AM EDT) Narrative [facility] - 01/15/2019 8:04 AM EDT This study is for PACS storage only and not for interpretation. us Chapis Myrick MD IMG OUTSIDE IMAGING W/OUT IN TERPRETATION Final Result Performing Organization Address [facility] Co de Phone Number [email or web address] * CT Vascular Outside (No Interpretation) (01/15/2019 8:04 AM EDT) Narrative [facility] - 01/15/2019 8:04 AM EDT This study is for PACS storage only and not for interpretation. us Chapis Myrick MD IMG OUTSIDE IMAGING W/OUT IN TERPRETATION Final Result [facility] documented in this encounter Visit Diagnoses Not on filedocumented in this encounter Care Teams Senior Commercial Loan Officer Relationship Specialty Start Date End Date Alicja Benton MD [facility] [place] [address] PCP - General Internal Medicine 12/15/18 documented as of this encounter Additional Source Comments The information contained in this document represents components of the legal health record. It is not the complete legal health record.[facility]
--- OUTSIDE RECORDS SUMMARY | 2025-01-17 07:44 | XMS_ITS | Clinical Summary ---
Author Organization [facility] Address [address] [place] [address] Care Team Providers Care Plaster Block Layer Name Role Phone Mireya Robledo Primary Care Provide r Unavailable Medications Hospital, Clinic, or Other Facility Administered Medication Ordered Dose Route Frequency Start Date End Date Status lidocaine (XYLOCAINE) 4% (40 mg/mL) topical solution 120 mg 120 mg topical Once 11/20/2023 Active Encounters Date Type Department Care Team Description 11/18/2024 Telephone [facility] Infection Control Department [address] [place] [address] Angel Sal III, MD 11/10/2024 Telephone [facility] Infection Control Department [address] [place] [address] Angel Sal III, MD from Last 3 [...] Zoster Vaccines Completed 11/08/2017, 07/24/2017 Insurance MEDICARE [facility] Care Teams Plaster Block Layer Relationship Specialty Start Date End Date Mireya Robledo [address] [place] [address] PCP - General Internal Medicine 11/04/23
--- OUTSIDE RECORDS SUMMARY | 2025-01-17 07:44 | XMS_ITS | Clinical Summary ---
Author Organization [facility] Address [address] [place] [phone] Phone Care Team Providers Care Solution Design Engineer Name Role Phone Alicja Benton MD [...] file Insurance MEDICARE PART A & B [facility] MEDICARE PART A & B [place] MED[place] PART A & [facility] [place] MED[place] PART A & [facility] & [place] A & [facility] Care Teams Solution Design Engineer Relationship Specialty Start Date End Date Alicja Benton MD [address] [place] [address] PCP - General Internal Medicine 12/15/18 Additional Source Comments The information contained in this document represents components of the legal health record. It is not the complete legal health record.[facility]
--- OUTSIDE RECORDS SUMMARY | 2025-01-17 07:44 | XMS_ITS | Clinical Summary ---
Author Organization [facility] Address [address] [place] [address] Care Team Providers Care Backroom Associate Name Role Phone Mireya Robledo MD Primary [...] age to complete this topic Care Teams Backroom Associate Relationship Specialty Start Date End Date Mireya Robledo MD PCP - General Internal Medicine 05/26/20
== END 2025-01-17 07:42 | disposition home or self-care (01) ==
LOC: HO.XRAY 07:41
PROVIDERS: PCP Internal Medicine; Visit Provider Internal Medicine Gastroenterology
DX: R13.10 Dysphagia, unspecified (principal)
CPT/HCPCS: 74220

== ENCOUNTER → 2025-01-17 07:42 | Outpatient (BNV) | payer MEDICARE, MEDICAID, SELFPAY | PROVIDERS: PCP Internal Medicine; Visit Provider Radiology Diagnostic Radiology | DX: R13.10 Dysphagia, unspecified (principal); K44.9 Diaphragmatic hernia without obstruction or gangrene | CPT/HCPCS: 74221 ==

== ENCOUNTER 2025-01-24 11:06 | Outpatient (AMB) | payer MEDICARE, MEDICAID, SELFPAY ==
--- OUTSIDE RECORDS SUMMARY | 2022-08-05 02:28 | XMS_ITS | Continuity of Care Document ---
Author Organization [facility] Address [address] [facility] [address] [place] [address] Phone Care Team Providers Care Grounds Foreman Name Role Phone Mars CARRERA FACS RVT [...] Providers Copied on Encounter [facility], [address] [facility] [address] [facility] [address] [facility] [address]Ber[place], [id number], [place] tel:[phone] [facility] No Information Mars CARRERA FACS RVT ANUJA Leal. [address] [facility], [address], [facility] [place], [address], [place]. tel:[phone] Office/Outpt E&M Established 15 Mins [facility], [address] [place] [address] Dr [address], [place], [id number], [place] tel:[phone] [place] Venous insufficiency (chronic) (peripheral) 3 Mars CARRERA FACS [facility] Olivier Elvis. [address] [place], [address], [facility] [place], [address], [place]. tel:[phone] Referring Provider: Olivier Crews MD, FACS [facility], [facility]0 [facility] Suite [facility], [facility] [place], [address]. tel:[phone] [place] [facility], [address] [place] [address] Dr [address], [place], [id number], [place] tel:[phone] [place] Venous insufficiency (chronic) (peripheral)Pa in in right legPain in left leg 3 Mars CARRERA FACS [facility] ANUJA Aguayo Elvis. [address] [facility], Suite [facility], [facility] [place], [address], [place]. [phone] Referring Provider: Olivier Crews MD, FACS [facility], [facility]0 [facility] Suite [facility], [place], [address]. tel:[phone] Office/Outpt E&M Established 15 Mins [place] [facility], [address] [place] [address] [address], [place], [id number], [place] tel:[phone] [place] Body mass index (BMI) 29.0-29.9, adultVenous insufficiency (chronic) (peripheral) 3 Mars CARRERA FACS [facility] Olivier Elvis. [address] [place], [address], [facility] [place], [address], [place]. tel:[phone] Referring Provider: Olivier Crews MD, FACS [facility], [facility]0 [facility] Suite [facility], [facility] [place], [address]. tel:[phone] Family History Family Member Type Diagnosis Age At Onset No Information Payers Payer name Insurance type Covered alliance party ID Authoriza tion(s) Medicare ERIC JARAMILLO [id number] Medical Assistance ERIC BARLOW [id number] Social History Type Description Quantity Date Captured [...]
--- OUTSIDE RECORDS SUMMARY | 2025-01-24 14:03 | XMS_ITS | Encounter Summary ---
Author Organization [facility] Address [address] [facility] [address] [place] [address] Phone Care Team Providers Care Fish Hatchery Inspector Name Role Phone Alicja Benton MD Primary Care Provider Encounter Details Date Type Department Care Team (Late st Contact Info) Description 01/14/2019 Documentation [facility] [address] [place] [phone] No [email or web address] Social History Tobacco Use Types Packs/Day Years [...] on filedocumented in this encounter Care Teams Fish Hatchery Inspector Relationship Specialty Start Date End Date Alicja Benton MD [employer] [facility] [place] [address] PCP - General Internal Medicine 12/15/18 documented as of this encounter Additional Source Comments The information contained in this document represents components of the legal health record. It is not the complete legal health record.[facility]
--- OUTSIDE RECORDS SUMMARY | 2025-01-24 14:03 | XMS_ITS | Encounter Summary ---
Author Organization [facility] Address [address] [place] [address] Phone Care Team Providers Care Tire Service Technician Name Role Phone Alicja Benton MD Primary Care Provider Reason for Referral * MRI/CAT Scan - Closed Specialty Diagnoses / Procedures Referred By Contac t Referred To Contact Procedures CT Chest Outside (No Interpretation) Chapis Myrick MD Phone: tel: fax: mailto:[email or web address] Referral ID Status Reason Start Date Expiration Date Visits Re quested Visits Authorized [id number] Closed 01/15/2019 01/15/2020 1 1 * MRI/CAT Scan - Closed Specialty Diagnoses / Procedures Referred By Contac t Referred To Contact Procedures CT Chest Outside (No Interpretation) Chapis Myrick MD Phone: tel: fax: mailto:[email or web address] Referral ID Status Reason Start Date Expiration Date Visits Re quested Visits Authorized [id number] Closed 01/15/2019 01/15/2020 1 1 * MRI/CAT Scan - Closed Specialty Diagnoses / Procedures Referred By Contac t Referred To Contact Procedures CT Vascular Outside (No Interpretation) Chapis Myrick MD Phone: tel: fax: mailto:[email or web address] Referral ID Status Reason Start Date Expiration Date Visits Re quested Visits Authorized [id number] Closed 01/15/2019 01/15/2020 1 1 Encounter Details Date Type Department Care Team (Late st Contact Info) Description 01/15/2019 Transcribe Orders [facility] [address] [address] Osiel Rose [address] [place] [phone] [email or web address] Social History Tobacco Use Types [...] (No Interpretation) (01/15/2019 8:05 AM EDT) Narrative [facility] - 01/15/2019 8:05 AM EDT This study is for PACS storage only and not for interpretation. us Chapis Myrick MD IMG OUTSIDE IMAGING W/OUT IN TERPRETATION Final Result Performing Organization Address [facility] de Phone Number [email or web address] * CT Chest Outside (No Interpretation) (01/15/2019 8:04 AM EDT) Narrative [facility] - 01/15/2019 8:04 AM EDT This study is for PACS storage only and not for interpretation. us Chapis Myrick MD IMG OUTSIDE IMAGING W/OUT IN TERPRETATION Final Result Performing Organization Address [facility] Co de Phone Number [email or web address] * CT Vascular Outside (No Interpretation) (01/15/2019 8:04 AM EDT) Narrative [facility] - 01/15/2019 8:04 AM EDT This study is for PACS storage only and not for interpretation. us Chapis Myrick MD IMG OUTSIDE IMAGING W/OUT IN TERPRETATION Final Result [facility] documented in this encounter Visit Diagnoses Not on filedocumented in this encounter Care Teams Tire Service Technician Relationship Specialty Start Date End Date Alicja Benton MD [facility] [place] [address] PCP - General Internal Medicine 12/15/18 documented as of this encounter Additional Source Comments The information contained in this document represents components of the legal health record. It is not the complete legal health record.[facility]
--- OUTSIDE RECORDS SUMMARY | 2025-01-24 14:04 | XMS_ITS | Clinical Summary ---
Author Organization [facility] Address [address] [place] [address] Phone Care Team Providers Care Quality Director Name Role Phone Alicja Benton MD Primary [...] file Insurance MEDICARE PART A & B [facility] MEDICARE PART A & B [place] A & [facility] & [place] & [facility] [place] & [place] & [facility] Care Teams Quality Director Relationship Specialty Start Date End Date Alicja Benton MD [address] [place] [address] PCP - General Internal Medicine 12/15/18 Additional Source Comments The information contained in this document represents components of the legal health record. It is not the complete legal health record.[facility]
--- OUTSIDE RECORDS SUMMARY | 2025-01-24 14:04 | XMS_ITS | Encounter Summary ---
Author Organization [facility] Address [address] [address] Phone Care Team Providers Care Language And Literature Division Chair Name Role Phone Alicja Benton MD Primary Care Provider Encounter Details Date Type Department Care Team (Late st Contact Info) Description 03/06/2020 Telemedicine [facility] [address] [place] [phone] Chapis Myrick MD [address] [place] [phone] [email or web address] Lung nodules (Primary Dx) Social History [...] classified documented in this encounter Care Teams Language And Literature Division Chair Relationship Specialty Start Date End Date Alicja Benton MD [address] [facility] [place] [address] PCP - General Internal Medicine 12/15/18 documented as of this encounter Additional Source Comments The information contained in this document represents components of the legal health record. It is not the complete legal health record.[facility]
--- OUTSIDE RECORDS SUMMARY | 2025-01-24 14:04 | XMS_ITS | Clinical Summary ---
Author Organization [facility] Address [address] [place] [address] Care Team Providers Care Food Dehydrator Operator Name Role Phone Mireya Robledo MD [...] age to complete this topic Care Teams Food Dehydrator Operator Relationship Specialty Start Date End Date Mireya Robledo MD PCP - General Internal Medicine 05/26/20
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
--- OUTSIDE RECORDS SUMMARY | 2025-01-24 14:04 | XMS_ITS | Patient Health Record ---
[facility] Address [address] [place] [address] Care Team Providers Care Director Revenue Name Role Phone Aston Davison Primary Care Provider Unav ailable Xavi De La Garza Unavailable [phone] Allergies Allergen (clinical drug ingredient) Drug/Non Drug [...] TH EVERY DAY Oral; Duration: 90 Active Inert-0-trnj Ethyl Esters 1 GM TAKE 2 CAPSULES [...] [employer] [address] [facility] [place] [address] [id number] Jv Monroy Self - patient is the insured 4 Medical (General) History Medical History History ICD Code Arthritis asthma Back,Hip,and Knee pain Broken bones Headaches/Migraines High blood pressure Lung disease nerve disorder Surgical History Surgery Date(Month/Year) cervical fusion hernia leg surgery nose
--- OUTSIDE RECORDS SUMMARY | 2025-01-24 14:04 | XMS_ITS | Clinical Summary ---
Author Organization [facility] Address [address] [place] [address] Care Team Providers Care Carpentry Instructor Name Role Phone Mireya Robledo Primary Care Provide r Unavailable Medications Hospital, Clinic, or Other Facility Administered Medication Ordered Dose Route Frequency Start Date End Date Status lidocaine (XYLOCAINE) 4% (40 mg/mL) topical solution 120 mg 120 mg topical Once 11/20/2023 Active Encounters Date Type Department Care Team Description 11/18/2024 Telephone [facility] Infection Control Department [address] [place] [address] Angel Sal III, MD 11/10/2024 Telephone [facility] Infection Control Department [address] [place] [address] Angel Sal III, MD from Last 3 [...] Zoster Vaccines Completed 11/08/2017, 07/24/2017 Insurance MEDICARE [facility] Care Teams Carpentry Instructor Relationship Specialty Start Date End Date Mireya Robledo [address] [place] [address] PCP - General Internal Medicine 11/04/23
== END 2025-01-24 11:07 | disposition home or self-care (01) ==
LOC: HO.HMGAL 11:06
PROVIDERS: PCP Internal Medicine; Visit Provider Registered Nurse Emergency
DX: J30.89 Other allergic rhinitis (principal)
CPT/HCPCS: 95117; 95165

== ENCOUNTER 2025-01-31 11:02 | Outpatient (AMB) | payer MEDICARE, MEDICAID, SELFPAY ==
--- OUTSIDE RECORDS SUMMARY | 2022-08-05 02:28 | XMS_ITS | Continuity of Care Document ---
Author Organization [facility] Address [address] [facility] [address] [facility] [address] [place] [address] Phone Care Team Providers Care Professor Of Mathematics Name Role Phone Mars CARRERA FACS RVT Olivier LICEA Unavailable Unavailable Allergies, Adverse Reactions, Alerts Substance Reaction Status Criticality bee venom protein (honey bee) Active No Information metronidazole Active No Information Medications Medication Instructions Dosage Effective Dates (start - stop) Status Comments lisinopril 10 mg tablet take 1 tablet by oral route every day 10 MG - Active Proair Digihaler 90 mcg/actuation aerosol powder breath act, sensor - Active lovastatin 10 mg tablet - Active omeprazole 20 mg capsule,delayed release - Active OxyContin 20 mg tablet,crush resistant,extended release - Active oxycodone 20 mg tablet - Active Procedures Procedure Date Office/Outpt E&M Established 15 Mins July Duplex Scan-extrem Veins; Comp Office/Outpt E&M Established 15 Mins July Advance Directives Directive Yes / No Effective Date File Name No Information Encounters Encounter Description Practice Location Reason(s) For Visit Diagnoses Date Provider Providers Copied on Encounter [facility], [address], [id number], [place] tel:[phone] [facility] No Information Mars CARRERA FACS RVT ANUJA Leal. [address] [facility], [address], [place], [address], [place]. tel:[phone] Office/Outpt E&M Established 15 Mins [facility], [address] [place] [address] Dr [address], [place], [id number], [place] tel:[phone] [place] Venous insufficiency (chronic) (peripheral) 3 Mars CARRERA FACS [facility] Olivier Elvis. [address] [place], [address], [place], [address], [place]. tel:[phone] Referring Provider: Olivier Crews MD, FACS [facility], [facility]0 [facility] Suite [facility], [place], [address]. tel:[phone] [place] [facility], [address] [place] [address] Dr [address], [place], [id number], [place] tel:[phone] [place] Venous insufficiency (chronic) (peripheral)Pa in in right legPain in left leg 3 Mars CARRERA FACS [facility] ANUJA Aguayo Elvis. [address] [facility], Suite [facility], [place], [address], [place]. [phone] Referring Provider: Olivier Crews MD, FACS [facility], [facility]0 [facility] Suite [facility], [place], [address]. tel:[phone] Office/Outpt E&M Established 15 Mins [place] [facility], [address] [place] [address] [address], [place], [id number], [place] tel:[phone] [place] Body mass index (BMI) 29.0-29.9, adultVenous insufficiency (chronic) (peripheral) 3 Mars CARRERA FACS [facility] Olivier Elvis. [address] [place], [address], [place], [address], [place]. tel:[phone] Referring Provider: Olivier Crews MD, FACS [facility], [facility]0 [facility] Suite [facility], [place], [address]. tel:[phone] Family History Family Member Type Diagnosis Age At Onset No Information Payers Payer name Insurance type Covered libertarian ID Authoriza tion(s) Medicare ERIC JARAMILLO [id number] Medical Assistance ERIC BARLOW [id number] Social History Type Description Quantity Date Captured Comments Sex Male Smoking Status No Information Chief Complaint And Reason For Visit No Information Reason For Referral Reason For Referral No Information Plan Of Treatment Date Type Action Status Goal Tobacco cessation counseling completed Goal Diet education completed History Of Present Illness Encounter Date Complaint History Of Prese nt Illness No Information Functional Status Date Functional Assessmen t No Information Instructions Date Instruction Additional Infor mation Patient education booklet given Related to Venous Insufficiency (Chronic / Peripheral) Giving Encouragement to Exercise Related to Body mass index [BMI] 29.0-29.9, adult Diet education Related to Body mass index [BMI] 29.0-29.9, adult Assessments Type Assessment Date No Information Patient Care Teams Name Effective Dates (start - stop) Status Members No Information
--- OUTSIDE RECORDS SUMMARY | 2025-01-31 13:21 | XMS_ITS | Clinical Summary ---
Author Organization [facility] Address [address] [place] [address] Care Team Providers Care Deck Supervisor Name Role Phone Mireya Robledo MD [...] age to complete this topic Care Teams Deck Supervisor Relationship Specialty Start Date End Date Mireya Robledo MD PCP - General Internal Medicine 05/26/20
--- OUTSIDE RECORDS SUMMARY | 2025-01-31 13:21 | XMS_ITS | Encounter Summary ---
Author Organization [facility] Address [address] [address] Phone Care Team Providers Care Membership Coordinator Name Role Phone Alicja Benton MD Primary Care Provider Encounter Details Date Type Department Care Team (Late st Contact Info) Description 03/06/2020 Telemedicine [facility] and [facility] [address] [place] [phone] Chapis Myrick MD [address] [place] [phone] [email or web address] Lung nodules (Primary Dx) Social History Tobacco [...] classified documented in this encounter Care Teams Membership Coordinator Relationship Specialty Start Date End Date Alicja Benton MD [address] [facility] [place] [address] PCP - General Internal Medicine 12/15/18 documented as of this encounter Additional Source Comments The information contained in this document represents components of the legal health record. It is not the complete legal health record.[facility]
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
--- OUTSIDE RECORDS SUMMARY | 2025-01-31 13:21 | XMS_ITS | Encounter Summary ---
Author Organization [facility] Address [address] [place] [address] Phone Care Team Providers Care Cost Accounting Analyst Name Role Phone Alicja Benton MD Primary Care Provider Reason for Referral * MRI/CAT Scan - Closed Specialty Diagnoses / Procedures Referred By Contac t Referred To Contact Procedures CT Chest Outside (No Interpretation) Chapis Myrick MD Phone: tel: fax: mailto:[email or web address] Referral ID Status Reason Start Date Expiration Date Visits Re quested Visits Authorized [id number] Closed 01/15/2019 01/15/2020 1 1 * MRI/CAT Scan - Closed Specialty Diagnoses / Procedures Referred By Contac t Referred To Contact Procedures CT Chest Outside (No Interpretation) Chapis Myrick MD Phone: tel: fax: mailto:[email or web address] Referral ID Status Reason Start Date Expiration Date Visits Re quested Visits Authorized [id number] Closed 01/15/2019 01/15/2020 1 1 * MRI/CAT Scan - Closed Specialty Diagnoses / Procedures Referred By Contac t Referred To Contact Procedures CT Vascular Outside (No Interpretation) Chapis Myrick MD Phone: tel: fax: mailto:[email or web address] Referral ID Status Reason Start Date Expiration Date Visits Re quested Visits Authorized [id number] Closed 01/15/2019 01/15/2020 1 1 Encounter Details Date Type Department Care Team (Late st Contact Info) Description 01/15/2019 Transcribe Orders [facility] [address] [address] Osiel Rose [address] [place] [phone] [email or web address] Social History Tobacco Use Types [...] (No Interpretation) (01/15/2019 8:05 AM EDT) Narrative [facility] - 01/15/2019 8:05 AM EDT This study is for PACS storage only and not for interpretation. us Chapis Myrick MD IMG OUTSIDE IMAGING W/OUT IN TERPRETATION Final Result Performing Organization Address [facility] de Phone Number [email or web address] * CT Chest Outside (No Interpretation) (01/15/2019 8:04 AM EDT) Narrative [facility] - 01/15/2019 8:04 AM EDT This study is for PACS storage only and not for interpretation. us Chapis Myrick MD IMG OUTSIDE IMAGING W/OUT IN TERPRETATION Final Result Performing Organization Address [facility] Co de Phone Number [email or web address] * CT Vascular Outside (No Interpretation) (01/15/2019 8:04 AM EDT) Narrative [facility] - 01/15/2019 8:04 AM EDT This study is for PACS storage only and not for interpretation. us Chapis Myrick MD IMG OUTSIDE IMAGING W/OUT IN TERPRETATION Final Result [facility] documented in this encounter Visit Diagnoses Not on filedocumented in this encounter Care Teams Cost Accounting Analyst Relationship Specialty Start Date End Date Alicja Benton MD [facility] [place] [address] PCP - General Internal Medicine 12/15/18 documented as of this encounter Additional Source Comments The information contained in this document represents components of the legal health record. It is not the complete legal health record.[facility]
--- OUTSIDE RECORDS SUMMARY | 2025-01-31 13:21 | XMS_ITS | Encounter Summary ---
Author Organization [facility] Address [address] [facility] [address] [place] [phone] Phone Care Team Providers Care Universal Grinder Tool Name Role Phone Alicja Benton MD Primary Care Provider Encounter Details Date Type Department Care Team (Late st Contact Info) Description 01/14/2019 Documentation [facility] [address] [place] [phone] No [email or web address] Social History Tobacco Use Types [...] on filedocumented in this encounter Care Teams Universal Grinder Tool Relationship Specialty Start Date End Date Alicja Benton MD [facility] [place] [address] PCP - General Internal Medicine 12/15/18 documented as of this encounter Additional Source Comments The information contained in this document represents components of the legal health record. It is not the complete legal health record.[facility]
--- OUTSIDE RECORDS SUMMARY | 2025-01-31 13:21 | XMS_ITS | Clinical Summary ---
Author Organization [facility] Address [address] [place] [address] Care Team Providers Care Spud Sorter Name Role Phone Mireya Robledo Primary Care Provide r Unavailable Medications Hospital, Clinic, or Other Facility Administered Medication Ordered Dose Route Frequency Start Date End Date Status lidocaine (XYLOCAINE) 4% (40 mg/mL) topical solution 120 mg 120 mg topical Once 11/20/2023 Active Encounters Date Type Department Care Team Description 11/18/2024 Telephone [facility] Infection Control Department [address] [place] [address] Angel Sal III, MD 11/10/2024 Telephone [facility] Infection Control Department [address] [place] [address] Angel Sal III, MD from Last 3 [...] Zoster Vaccines Completed 11/08/2017, 07/24/2017 Insurance MEDICARE [facility] Care Teams Spud Sorter Relationship Specialty Start Date End Date Mireya Robledo [address] [place] [address] PCP - General Internal Medicine 11/04/23
--- OUTSIDE RECORDS SUMMARY | 2025-01-31 13:21 | XMS_ITS | Clinical Summary ---
Author Organization [facility] Address [address] [place] [address] Phone Care Team Providers Care Heavy Forging Machine Operator Name Role Phone Alicja Benton MD [...] 11/16/2016, Additional history exists COVID-19 VACCINE ( - season) 2024 05/17/2020, 04/19/2020 Adult Td,Tdap Booster [...] patient's age to complete this topic IPV VACCINES Aged Out No longer eligi ble based on patient's age to complete this topic Medical Devices Not on file Insurance MEDICARE PART A & B [facility] MEDICARE PART A & [place] & [place] Care Teams Heavy Forging Machine Operator Relationship Specialty Start Date End Date Alicja Benton MD [facility] [place] [address] PCP - General Internal Medicine 12/15/18 Additional Source Comments The information contained in this document represents components of the legal health record. It is not the complete legal health record.[facility]
== END 2025-01-31 11:02 | disposition home or self-care (01) ==
LOC: HO.HMGAL 11:02
PROVIDERS: PCP Internal Medicine; Visit Provider Registered Nurse Emergency
DX: J30.89 Other allergic rhinitis (principal)
CPT/HCPCS: 95117; 95165

== ENCOUNTER 2025-02-10 07:21 | Day surgery (SDC) | payer MEDICARE, MEDICAID, SELFPAY ==
--- NOTE | 2024-09-21 09:21 | HO.ANESPROP2 ---
HPI - Anesthesia Eval Consult details Narrative: 59yo M for Upper Endoscopy s/p same 04/2024 with TIVA Follows [facility] cardiology for nonspecific EKG abnormalities. Last office visit 11/2023: stable and continue with cardiac risk factor modification. Anesthesia Pre-Procedure Meds Is the patient on any of the following meds?: GLP1/DPP4 (Last dose of wegovy 1 week ago) PMFSH Active Problems Active Problems: All Active Problems Overweight (BMI 25.0-29.9) (Acute) [place] infection (Acute) Nephrolithiasis (Acute) Abnormal EKG (Acute) Tubular adenoma (Acute) Lower abdominal pain (Acute) Neuropathy (Acute) Bladder outlet obstruction (Acute) Renal cyst (Acute) Flank pain (Acute) Chest pain (Acute) Nonalcoholic steatohepatitis (DELUNA) (Acute) Dysphagia (Acute) Bladder spasm (Acute) Palpitation (Acute) Urgency of micturition (Acute) Esophageal stricture (Acute) Pre-op evaluation (Acute) KATHLEEN on CPAP (Acute) Cervical radiculopathy (Acute) Hx of chest pain (Acute) High cholesterol (Acute) Hypertension (Acute) Shortness of breath (Acute) Hypoglycemia (Acute) Asthma-COPD overlap syndrome (Acute) Pulmonary nodules (Acute) GERD (gastroesophageal reflux disease) (Acute) COPD (chronic obstructive pulmonary disease) (Acute) Anxiety (Acute) Past Medical History Medical History Shortness of breath Hypoglycemia Asthma-COPD overlap syndrome Pulmonary nodules COPD (chronic obstructive pulmonary disease) Hx of renal calculi Asthma Hx of allergic rhinitis History of esophageal spasm Hx of chest pain Back pain Osteoarthritis of both hips Hx of goiter History of IBS History of colitis Chronic pain High cholesterol Hx of multiple pulmonary nodules Hypertension PTSD (post-traumatic stress disorder) Panic attacks Dysphagia GERD (gastroesophageal reflux disease) Anxiety Family History Family History Father No problems noted. Mother No problems noted. Family history of problems with anesthesia: Yes (PONV. Patient does not want ketamine) Surgical History Surgical History History of surgery on arm H/O shoulder surgery H/O neck surgery Hx of endoscopy Hx of transurethral resection of prostate Hx of tonsillectomy Hx of esophagogastroduodenoscopy Hx of colonoscopy History of nasal surgery Hx of left inguinal hernia repair Hx of cervical discectomy History of Problems with Anesthesia: No Social History Social History Household Members: Other Household Members Other:: Mother Alcohol intake: never Patient Tobacco Use Status: Former Tobacco user Tobacco use type: Cigarette Years Smoked: 30 Second Hand Smoke Exposure: No Current occupational status: unemployed Meds Allergies Allergy/AdvReac Type Severity Reaction Status Date / Time metronidazole (From FLAGYL) Allergy Severe RASH Verified 03/26/24 11:20 tree and shrub pollen (TREE) Allergy Severe Rash Verified 03/26/24 11:20 dexamethasone AdvReac Severe palpitatiio Verified 03/26/24 11:20 ns fluticasone furoate (Breo AdvReac Severe palpitations, Verified 03/26/24 11:20 Ellipta) high BP umeclidinium (Incruse AdvReac Severe palpitation Verified 03/26/24 11:20 Ellipta) s Bee sting Allergy Severe Hives/Difficulty Uncoded 01/30/24 09:48 breathing Clindamycin HCl Allergy Severe Hives Uncoded 01/30/24 09:48 ENVIRONMENTAL Allergy Severe Rash Uncoded 01/30/24 09:48 Home Medications ?Medication ?Instructions ?Recorded ?Confirmed ?Last Taken ?Type levocetirizine 5 mg tablet 5 mg PO DIRECTED 12/23/19 12/02/23 Unknown History cholecalciferol (vitamin D3) 50 05/09/22 01/30/24 Unknown History mcg (2,000 unit) capsule (Vitamin D3) levalbuterol tartrate 45 inhalation 05/09/22 12/02/23 Unknown History mcg/actuation aerosol inhaler nebulizers 10/31/22 12/02/23 Unknown History epinephrine 0.3 mg/0.3 mL 0.3 mg IM anaphylaxis 11/26/22 01/30/24 Unknown History injection, auto-injector lactulose 10 gram/15 mL oral PO 07/21/23 01/30/24 Unknown History solution oxycodone 20 mg tablet 20 mg PO TID PRN Pain (Scale Score 07/21/23 12/02/23 04/28/24 History 7-10) semaglutide (weight loss) 2.4 mg subcut 04/09/24 Unknown History mg/0.75 mL subcutaneous pen injector (Anish) Exam Pertinent Lab Results Pertinent Lab Results: Laboratory Tests 03/26/24 11:55 WBC 7.6 Hgb 15.2 Hct 46.9 Plt Count 274 Sodium 139 Potassium 4.1 Chloride 105 Carbon Dioxide 27 BUN 15 Creatinine 0.82 Narrative Narrative: EKG 03/2024 Vent. Rate : 077 BPM Atrial Rate : 077 BPM P-R Int : 168 ms QRS Dur : 084 ms QT Int : 376 ms P-R-T Axes : 057 -03 037 degrees QTc Int : 425 ms Normal sinus rhythm Normal ECG When compared with ECG of 29-OCT-2022 11:18, No significant change was found Assessment and Plan Final Anesthetic Review Family History of Problems with Anesthesia: Yes (PONV. Patient does not want ketamine) History of Problems with Anesthesia: No
[2024-11-12 15:05] VITALS: BMI 27.4
--- NOTE | 2024-11-15 13:27 | HO.ANESPROP2 ---
HPI - Anesthesia Eval Consult details Narrative: 59yo M for Upper Endoscopy with Balloon Dilitation, 12/22/24 s/p same 04/2024 with TIVA Follows [facility] cardiology for nonspecific EKG abnormalities. Last office visit 11/2023: stable and continue with cardiac risk factor modification. Anesthesia Pre-Procedure Meds Is the patient on any of the following meds?: GLP1/DPP4 PMFSH Active Problems Active Problems: All Active Problems Overweight (BMI 25.0-29.9) (Acute) [place] infection (Acute) Nephrolithiasis (Acute) Abnormal EKG (Acute) Tubular adenoma (Acute) Lower abdominal pain (Acute) Neuropathy (Acute) Bladder outlet obstruction (Acute) Renal cyst (Acute) Flank pain (Acute) Chest pain (Acute) Nonalcoholic steatohepatitis (DELUNA) (Acute) Dysphagia (Acute) Bladder spasm (Acute) Palpitation (Acute) Urgency of micturition (Acute) COPD (chronic obstructive pulmonary disease) (Acute) Esophageal stricture (Acute) Pre-op evaluation (Acute) KATHLEEN on CPAP (Acute) Cervical radiculopathy (Acute) Hx of chest pain (Acute) High cholesterol (Acute) Hypertension (Acute) Shortness of breath (Acute) Hypoglycemia (Acute) Asthma-COPD overlap syndrome (Acute) Pulmonary nodules (Acute) GERD (gastroesophageal reflux disease) (Acute) Anxiety (Acute) Past Medical History Medical History Neuropathy Sleep apnea Shortness of breath Hypoglycemia Asthma-COPD overlap syndrome Pulmonary nodules Hx of renal calculi Hx of allergic rhinitis History of esophageal spasm Hx of chest pain Back pain Osteoarthritis of both hips Hx of goiter History of IBS History of colitis Chronic pain High cholesterol Hx of multiple pulmonary nodules Hypertension PTSD (post-traumatic stress disorder) Panic attacks Dysphagia GERD (gastroesophageal reflux disease) Anxiety Family History Family History Father No problems noted. Mother No problems noted. Family history of problems with anesthesia: Yes (PONV. Patient does not want ketamine) Surgical History Surgical History History of surgery on arm H/O shoulder surgery H/O neck surgery Hx of endoscopy Hx of transurethral resection of prostate Hx of tonsillectomy Hx of colonoscopy History of nasal surgery Hx of left inguinal hernia repair Hx of cervical discectomy History of Problems with Anesthesia: No Social History Social History Household Members: Other Household Members Other:: Mother Alcohol intake: never Patient Tobacco Use Status: Former Tobacco user Tobacco use type: Cigarette Years Smoked: 30 Second Hand Smoke Exposure: No Current occupational status: unemployed Meds Allergies Allergy/AdvReac Type Severity Reaction Status Date / Time metronidazole (From FLAGYL) Allergy Severe RASH Verified 12/06/24 09:40 tree and shrub pollen (TREE) Allergy Severe Rash Verified 12/06/24 09:40 dexamethasone AdvReac Severe palpitatiio Verified 12/06/24 09:40 ns fluticasone furoate (Breo AdvReac Severe palpitations, Verified 12/06/24 09:40 Ellipta) high BP umeclidinium (Incruse AdvReac Severe palpitation Verified 12/06/24 09:40 Ellipta) s Bee sting Allergy Severe Hives/Difficulty Uncoded 01/30/24 09:48 breathing Clindamycin HCl Allergy Severe Hives Uncoded 01/30/24 09:48 Home Medications ?Medication ?Instructions ?Recorded ?Confirmed ?Last Taken ?Type levocetirizine 5 mg tablet 5 mg PO DIRECTED 12/23/19 12/02/24 Unknown History cholecalciferol (vitamin D3) 50 05/09/22 12/02/24 Unknown History mcg (2,000 unit) capsule (Vitamin D3) levalbuterol tartrate 45 inhalation 05/09/22 12/02/24 Unknown History mcg/actuation aerosol inhaler nebulizers 10/31/22 12/02/23 Unknown History epinephrine 0.3 mg/0.3 mL 0.3 mg IM anaphylaxis 11/26/22 12/02/24 Unknown History injection, auto-injector oxycodone 20 mg tablet 20 mg PO TID PRN Pain (Scale Score 07/21/23 12/02/24 04/28/24 History 7-10) tirzepatide (weight loss) 15 15 mg subcut QWEEK 11/26/24 12/02/24 Unknown History mg/0.5 mL subcutaneous pen injector (Zepbound) Exam Height,Weight and Vital Signs: Height 5 ft 7 in Weight 79.379 kg Pertinent Lab Results Pertinent Lab Results: Laboratory Tests 03/26/24 11:55 WBC 7.6 Hgb 15.2 Hct 46.9 Plt Count 274 Sodium 139 Potassium 4.1 Chloride 105 Carbon Dioxide 27 BUN 15 Creatinine 0.82 Narrative Narrative: EKG 03/2024 Vent. Rate : 077 BPM Atrial Rate : 077 BPM P-R Int : 168 ms QRS Dur : 084 ms QT Int : 376 ms P-R-T Axes : 057 -03 037 degrees QTc Int : 425 ms Normal sinus rhythm Normal ECG When compared with ECG of 29-OCT-2022 11:18, No significant change was found Assessment and Plan Assessment Anesthesia Assessment: Chart Reviewed Final Anesthetic Review Family History of Problems with Anesthesia: Yes (PONV. Patient does not want ketamine) History of Problems with Anesthesia: No
--- NOTE | 2025-02-08 09:24 | HO.ANESPROP2 ---
Documented by User: Sharmila Rivera NP 02/08/25 09:27 HPI - Anesthesia Eval Consult details Narrative: 59yo M for Upper Endoscopy with Balloon Dilitation s/p same 04/2024 with TIVA Follows [facility] cardiology for nonspecific EKG abnormalities. Last office visit 11/2024: stable and continue with cardiac risk factor modification. 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 (Acute) Hepatitis B antibody positive (Acute) Screening examination for infectious disease (Acute) Overweight (BMI 25.0-29.9) (Acute) [place] infection (Acute) Nephrolithiasis (Acute) Abnormal EKG (Acute) Tubular adenoma (Acute) Lower abdominal pain (Acute) Neuropathy (Acute) Bladder outlet obstruction (Acute) Renal cyst (Acute) Flank pain (Acute) Chest pain (Acute) Nonalcoholic steatohepatitis (DELUNA) (Acute) Dysphagia (Acute) Bladder spasm (Acute) Palpitation (Acute) Urgency of micturition (Acute) COPD (chronic obstructive pulmonary disease) (Acute) Esophageal stricture (Acute) Pre-op evaluation (Acute) KATHLEEN on CPAP (Acute) Cervical radiculopathy (Acute) Hx of chest pain (Acute) High cholesterol (Acute) Hypertension (Acute) Shortness of breath (Acute) Hypoglycemia (Acute) Asthma-COPD overlap syndrome (Acute) Pulmonary nodules (Acute) GERD (gastroesophageal reflux disease) (Acute) Anxiety (Acute) Past Medical History Medical History Hepatitis B core antibody positive Neuropathy Sleep apnea Shortness of breath Hypoglycemia Asthma-COPD overlap syndrome Pulmonary nodules Hx of renal calculi Hx of allergic rhinitis History of esophageal spasm Hx of chest pain Back pain Osteoarthritis of both hips Hx of goiter History of IBS History of colitis Chronic pain High cholesterol Hx of multiple pulmonary nodules Hypertension PTSD (post-traumatic stress disorder) Panic attacks Dysphagia GERD (gastroesophageal reflux disease) Anxiety Family History Family History Father No problems noted. Mother No problems noted. Family history of problems with anesthesia: Yes (PONV. Patient does not want ketamine) Surgical History Surgical History History of surgery on arm H/O shoulder surgery H/O neck surgery Hx of endoscopy Hx of transurethral resection of prostate Hx of tonsillectomy Hx of colonoscopy History of nasal surgery Hx of left inguinal hernia repair Hx of cervical discectomy History of Problems with Anesthesia: No Social History Social History Household Members: Other Household Members Other:: Mother Alcohol intake: never Patient Tobacco Use Status: Former Tobacco user Tobacco use type: Cigarette Years Smoked: 30 Second Hand Smoke Exposure: No Use of substances other than those prescribed or required for medical reasons: No Are you DNR?: No Advance Directives: No Advance Directives Information Provided: Yes Current occupational status: unemployed Meds Allergies Allergy/AdvReac Type Severity Reaction Status Date / Time metronidazole (From FLAGYL) Allergy Severe RASH Verified 02/10/25 08:13 tree and shrub pollen (TREE) Allergy Severe Rash Verified 02/10/25 08:13 dexamethasone AdvReac Severe palpitatiio Verified 02/10/25 08:13 ns fluticasone furoate (Breo AdvReac Severe palpitations, Verified 02/10/25 08:13 Ellipta) high BP umeclidinium (Incruse AdvReac Severe palpitation Verified 02/10/25 08:13 Ellipta) s Bee sting Allergy Severe Hives/Difficulty Uncoded 01/30/24 09:48 breathing Clindamycin HCl Allergy Severe Hives Uncoded 01/30/24 09:48 Home Medications ?Medication ?Instructions ?Recorded ?Confirmed ?Last Taken ?Type levocetirizine 5 mg tablet 5 mg PO DIRECTED 12/23/19 02/10/25 Unknown History cholecalciferol (vitamin D3) 50 50 mcg PO DAILY 05/09/22 02/10/25 Unknown History mcg (2,000 unit) capsule (Vitamin D3) nebulizers 10/31/22 02/10/25 Unknown History epinephrine 0.3 mg/0.3 mL 0.3 mg IM DAILY PRN anaphylaxis 11/26/22 02/10/25 Unknown History injection, auto-injector oxycodone 20 mg tablet 20 mg PO TID PRN Pain (Scale Score 07/21/23 02/10/25 02/10/25 04:30 History 7-10) tirzepatide (weight loss) 15 15 mg subcut QWEEK 11/26/24 02/10/25 02/02/25 History mg/0.5 mL subcutaneous pen injector (Zepbound) Exam Height,Weight and Vital Signs: Height 5 ft 7 in Weight 79.379 kg Pertinent Lab Results Pertinent Lab Results: Laboratory Tests 03/26/24 11:55 WBC 7.6 Hgb 15.2 Hct 46.9 Plt Count 274 Sodium 139 Potassium 4.1 Chloride 105 Carbon Dioxide 27 BUN 15 Creatinine 0.82 Narrative Narrative: EKG 11/2024 normal sinus rhythm, rate 67, QTC 422 millisecond Assessment and Plan Assessment Anesthesia Assessment: Chart Reviewed Final Anesthetic Review Family History of Problems with Anesthesia: Yes (PONV. Patient does not want ketamine) History of Problems with Anesthesia: No Documented by User: Savannah Zendejas MD 02/10/25 08:49 PMFSH Past Medical History Medical History Hepatitis B core antibody positive Neuropathy Sleep apnea Shortness of breath Hypoglycemia Asthma-COPD overlap syndrome Pulmonary nodules Hx of renal calculi Hx of allergic rhinitis History of esophageal spasm Hx of chest pain Back pain Osteoarthritis of both hips Hx of goiter History of IBS History of colitis Chronic pain High cholesterol Hx of multiple pulmonary nodules Hypertension PTSD (post-traumatic stress disorder) Panic attacks Dysphagia GERD (gastroesophageal reflux disease) Anxiety Family History Family History Father No problems noted. Mother No problems noted. Surgical History Surgical History History of surgery on arm H/O shoulder surgery H/O neck surgery Hx of endoscopy Hx of transurethral resection of prostate Hx of tonsillectomy Hx of colonoscopy History of nasal surgery Hx of left inguinal hernia repair Hx of cervical discectomy Social History Social History Household Members: Other Household Members Other:: Mother Alcohol intake: never Patient Tobacco Use Status: Former Tobacco user Tobacco use type: Cigarette Years Smoked: 30 Second Hand Smoke Exposure: No Use of substances other than those prescribed or required for medical reasons: No Are you DNR?: No Advance Directives: No Advance Directives Information Provided: Yes Current occupational status: unemployed Meds Allergies Allergy/AdvReac Type Severity Reaction Status Date / Time metronidazole (From FLAGYL) Allergy Severe RASH Verified 02/10/25 08:13 tree and shrub pollen (TREE) Allergy Severe Rash Verified 02/10/25 08:13 dexamethasone AdvReac Severe palpitatiio Verified 02/10/25 08:13 ns fluticasone furoate (Breo AdvReac Severe palpitations, Verified 02/10/25 08:13 Ellipta) high BP umeclidinium (Incruse AdvReac Severe palpitation Verified 02/10/25 08:13 Ellipta) s Bee sting Allergy Severe Hives/Difficulty Uncoded 01/30/24 09:48 breathing Clindamycin HCl Allergy Severe Hives Uncoded 01/30/24 09:48 Home Medications ?Medication ?Instructions ?Recorded ?Confirmed ?Last Taken ?Type levocetirizine 5 mg tablet 5 mg PO DIRECTED 12/23/19 02/10/25 Unknown History cholecalciferol (vitamin D3) 50 50 mcg PO DAILY 05/09/22 02/10/25 Unknown History mcg (2,000 unit) capsule (Vitamin D3) nebulizers 10/31/22 02/10/25 Unknown History epinephrine 0.3 mg/0.3 mL 0.3 mg IM DAILY PRN anaphylaxis 11/26/22 02/10/25 Unknown History injection, auto-injector oxycodone 20 mg tablet 20 mg PO TID PRN Pain (Scale Score 07/21/23 02/10/25 02/10/25 04:30 History 7-10) tirzepatide (weight loss) 15 15 mg subcut QWEEK 11/26/24 02/10/25 02/02/25 History mg/0.5 mL subcutaneous pen injector (Zepbound) Exam Airway Mallampati Class: II TM Dist: >3cm Neck ROM: Full Heart: rrr Lungs: cta Assessment and Plan Assessment Anesthesia Assessment: Anesthesia Plan Discussed Final Anesthetic Review NPO: Yes ASA Class: III Final Preanesthetic Review: No Changes in Pt Med Stat, Meds/Allgs Chart Reviewed, Consent Obtained/Reviewed and Anes Risks/Benef Reviewed Patient Risk: Intermediate Procedure Risk: Low Anesthetic Plan Anesthetic Plan: MAC: and Agree w/ Assess. and Plan Disposition: Standard PACU
[2025-02-10 08:16] VITALS: BMI 25.1
[2025-02-10 08:24] VITALS: BP 110/72; PULSE 57; RESP 15; TEMP 36.3; O2SAT 100
[2025-02-10] MEDS: Lactated Ringers 1,000 ML 100 ML IVCONT (08:38)
--- NOTE | 2025-02-10 10:04 | P.HPSUR_ITS ---
Pre-Procedural Eval Section A - 24 Hr Update-Section A only Date of Service: 02/10/25 Section B - Complete if H&P > 30 days Chief Complaint: Dysphagia, Relevant Family History (Specify if Yes): No Relevant Social History: None Present Medications: see Short Stay Collaborative assessment Medical History: Significant History (Neuropathy Sleep apnea Shortness of breath Hypoglycemia Asthma-COPD overlap syndrome Pulmonary nodules Hx of renal calculi Hx of allergic rhinitis History of esophageal spasm Hx of chest pain Back pain Osteoarthritis of both hips Hx of goiter History of IBS History of colitis Ch ronic pain High chuyita) History of Previous Operations: Relevant previous surgery/procedure and date(s) (History of surgery on arm H/O shoulder surgery H/O neck surgery Hx of endoscopy Hx of transurethral resection of prostate Hx of tonsillectomy Hx of colonoscopy History of nasal surgery Hx of left inguinal hernia repair Hx of cervical discectomy) Allergies: Allergies Allergy/AdvReac Type Severity Reaction Status Date / Time metronidazole (From FLAGYL) Allergy Severe RASH Verified 02/10/25 08:13 tree and shrub pollen (TREE) Allergy Severe Rash Verified 02/10/25 08:13 dexamethasone AdvReac Severe palpitatiio Verified 02/10/25 08:13 ns fluticasone furoate (Breo AdvReac Severe palpitations, Verified 02/10/25 08:13 Ellipta) high BP umeclidinium (Incruse AdvReac Severe palpitation Verified 02/10/25 08:13 Ellipta) s Bee sting Allergy Severe Hives/Difficulty Uncoded 01/30/24 09:48 breathing Clindamycin HCl Allergy Severe Hives Uncoded 01/30/24 09:48 Review of Systems Sugical H&P ROS: Negative: Constitution, Cardiovascular, Respiratory, Neurological, Psychiatric, Hem-Onc, Allergic/Immunologic, Gastrointestinal, Genitourinary, Musculoskeletal, Integumentary, Endocrine and Eyes/Ears/Nose/Throat Exam Surgical H&P Exam: Normal: HEENT, Normal: Heart, Normal: Lungs, Normal: Extremities, Normal: Abdomen, Normal: Skin and Normal: Neurological Plan Diagnosis/Plan: Unchanged I have reviewed the history and physical and performed a pertinent physical examination on my patient. No changes have occurred unless specified. Time Spent With Patient Time: Total time managing care of this patient today ____ minutes.
--- NOTE | 2025-02-10 10:31 | W.PM.OPN ---
Operative Note Operative Note Date of Service: 02/10/25 Narrative: Procedure Description: EGD Indication: dysphagia Anesthesia: MAC FLEXIBLE TRANSORAL UPPER GASTROINTESTINAL ENDOSCOPY UPPER ENDOSCOPY Consent: Indications for the procedure and potential complications of bleeding, perforation, reaction to medications and missed diagnosis were discussed with the patient and informed consent was obtained. Instrument: Olympus GIF H 190 J mid size upper endoscope Monitoring: Vital signs and clinical assessment, continuous EKG monitoring, Pulse oximetry, Carbon Dioxide monitoring and blood pressure monitoring were done throughout the procedure. Procedure: The patient was placed in the left lateral decubitis position and pre-procedure medications were administered and a bite block was placed. The endoscope was inserted into the mouth and advanced under direct vision to the third part of duodenum. A careful inspection was made as the upper endoscope was withdrawn including a retroflexed examination of the proximal stomach; Findings and interventions are described below. Findings: Larynx:normal Esophagus: GE junction at 37 cm, diaphragm hiatus at 37 cm, bogginess and erythema at GEJ, balloon dilation done to 19 mm and tear noted at LES, bx also taken from distal and proximal esophagus. Balloon dilation done to 19 mm at UES with small tear noted. Stomach: several fundic gland appearing polyps, several of these removed with cold snare for analysis. Grade 2 flap valve on retroflexed examination of the cardia. fundoplication noted. Duodenum: Normal bulb and descending duodenum, Intervention: Biopsies as noted above, balloon dilation, cold snare Impression/Findings: esophagitis esophageal stricture fundic gland polyps PLAN: will send magic mouthwash, cont with anti acid medication GERD precautions
[2025-02-10 10:35] VITALS: BP 105/63; PULSE 89; RESP 18; TEMP 36.2; O2SAT 96
[2025-02-10 10:49] VITALS: BP 105/60; PULSE 81; RESP 16; O2SAT 100
[2025-02-10 11:05] VITALS: BP 109/69; PULSE 68; RESP 16; TEMP 36.3; O2SAT 97
== END 2025-02-10 11:05 | disposition home or self-care (01) ==
PROVIDERS: PCP Internal Medicine; Visit Provider Internal Medicine Gastroenterology
PROC: (CPT 43239; principal; 2025-02-10 10:10)
DX: R13.10 Dysphagia, unspecified (principal); K31.7 Polyp of stomach and duodenum; K22.2 Esophageal obstruction; K20.90 Esophagitis, unspecified without bleeding
CPT/HCPCS: 43239; 43251; 43249; 88305; 88313; 88342; C1726; J2003; J2704

== ENCOUNTER → 2025-02-10 07:21 | Outpatient (BNV) | payer MEDICARE, MEDICAID, SELFPAY | PROVIDERS: PCP Internal Medicine; Visit Provider Internal Medicine Gastroenterology | DX: R13.10 Dysphagia, unspecified (principal); K22.2 Esophageal obstruction; K20.90 Esophagitis, unspecified without bleeding; K31.7 Polyp of stomach and duodenum | CPT/HCPCS: 43249; 43251 ==

== ENCOUNTER 2025-02-14 11:12 | Outpatient (AMB) | payer MEDICARE, MEDICAID, SELFPAY ==
--- OUTSIDE RECORDS SUMMARY | 2022-08-05 02:28 | XMS_ITS | Continuity of Care Document ---
Author Organization [facility] Address [address] [place] [address] [place] [address] Phone Care Team Providers Care Council On Aging Director Name Role Phone Mars CARRERA FACS RVT [...] Providers Copied on Encounter [facility], [address] [place] [address], [id number], [place] tel:[phone] [facility] No Information Mars CARRERA FACS RVT ANUJA Leal. [address] [facility], [address], [facility] [place], [address], [place]. tel:[phone] Office/Outpt E&M Established 15 Mins [facility], [address] [place] [address] Dr [address], [place], [id number], [place] tel:[phone] [place] Venous insufficiency (chronic) (peripheral) 3 Mars CARRERA FACS [facility] Olivier Elvis. [address] [place] [place], [address], [facility] [place], [address], [place]. tel:[phone] Referring Provider: Olivier Crews MD, FACS [facility], [facility] Suite [facility], [facility] [place], [address]. tel:[phone] [place] [facility], [address] [place] [address] Dr [address], [place], [id number], [place] tel:[phone] [place] Venous insufficiency (chronic) (peripheral)Pa in in right legPain in left leg 3 Mars CARRERA FACS [facility] ANUJA Aguayo Elvis. [address] [facility], Suite [facility], [place], [address], [place]. [phone] Referring Provider: Olivier Crews MD, FACS [facility], [facility] Suite [facility], [place], [address]. tel:[phone] Office/Outpt E&M Established 15 Mins [place] [facility], [address] [place] [address] [address], [place], [id number], [place] tel:[phone] [place] Body mass index (BMI) 29.0-29.9, adultVenous insufficiency (chronic) (peripheral) 3 Mars CARRERA FACS [facility] Olivier Elvis. [address] [place] [place], [address], [facility] [place], [address], [place]. tel:[phone] Referring Provider: Olivier Crews MD, FACS [facility], [facility] Suite [facility], [facility] [place], [address]. tel:[phone] Family History Family Member Type Diagnosis Age At Onset No Information Payers Payer name Insurance type Covered alliance party ID Authoriza tion(s) Medicare ERIC JARAMILLO [id number] Medical Assistance ERIC BARLOW [id number] Social History Type Description Quantity Date Captured [...]
--- OUTSIDE RECORDS SUMMARY | 2025-02-14 14:30 | XMS_ITS | Encounter Summary ---
Author Organization [facility] Address [address] [place] [phone] Phone Care Team Providers Care Electrical Project Engineer Name Role Phone Alicja Benton MD Primary Care Provider Reason for Referral * MRI/CAT Scan - Closed Specialty Diagnoses / Procedures Referred By Contac t Referred To Contact Procedures CT Chest Outside (No Interpretation) Chapis Myrick MD Phone: tel: fax: mailto:[email or web address] Referral ID Status Reason Start Date Expiration Date Visits Re quested Visits Authorized [id number] Closed 01/15/2019 01/15/2020 1 1 * MRI/CAT Scan - Closed Specialty Diagnoses / Procedures Referred By Contac t Referred To Contact Procedures CT Chest Outside (No Interpretation) Chapis Myrick MD Phone: tel: fax: mailto:[email or web address] Referral ID Status Reason Start Date Expiration Date Visits Re quested Visits Authorized [id number] Closed 01/15/2019 01/15/2020 1 1 * MRI/CAT Scan - Closed Specialty Diagnoses / Procedures Referred By Contac t Referred To Contact Procedures CT Vascular Outside (No Interpretation) Chapis Myrick MD Phone: tel: fax: mailto:[email or web address] Referral ID Status Reason Start Date Expiration Date Visits Re quested Visits Authorized [id number] Closed 01/15/2019 01/15/2020 1 1 Encounter Details Date Type Department Care Team (Late st Contact Info) Description 01/15/2019 Transcribe Orders [facility] [address] [address] Osiel Rose [address] [place] [id number] [email or web address] Social History Tobacco Use Types Packs/Day [...] (No Interpretation) (01/15/2019 8:05 AM EDT) Narrative [facility] - 01/15/2019 8:05 AM EDT This study is for PACS storage only and not for interpretation. us Chapis Myrick MD IMG OUTSIDE IMAGING W/OUT IN TERPRETATION Final Result Performing Organization Address [facility] de Phone Number [email or web address] * CT Chest Outside (No Interpretation) (01/15/2019 8:04 AM EDT) Narrative [facility] - 01/15/2019 8:04 AM EDT This study is for PACS storage only and not for interpretation. us Chapis Myrick MD IMG OUTSIDE IMAGING W/OUT IN TERPRETATION Final Result Performing Organization Address [facility] Co de Phone Number [email or web address] * CT Vascular Outside (No Interpretation) (01/15/2019 8:04 AM EDT) Narrative [facility] - 01/15/2019 8:04 AM EDT This study is for PACS storage only and not for interpretation. us Chapis Myrick MD IMG OUTSIDE IMAGING W/OUT IN TERPRETATION Final Result [facility] documented in this encounter Visit Diagnoses Not on filedocumented in this encounter Care Teams Electrical Project Engineer Relationship Specialty Start Date End Date Alicja Benton MD [facility] [place] [address] PCP - General Internal Medicine 12/15/18 documented as of this encounter Additional Source Comments The information contained in this document represents components of the legal health record. It is not the complete legal health record.[facility]
--- OUTSIDE RECORDS SUMMARY | 2025-02-14 14:30 | XMS_ITS | Encounter Summary ---
Author Organization [facility] Address [address] [place] [phone] Phone Care Team Providers Care Oil Spot Washer Name Role Phone Alicja Benton MD Primary Care Provider Encounter Details Date Type Department Care Team (Late st Contact Info) Description 03/06/2020 Telemedicine [facility] [address] [place] [phone] Chapis Myrick MD [address] [place] [phone] [email or web address] Lung nodules (Primary Dx) Social History Tobacco [...] classified documented in this encounter Care Teams Oil Spot Washer Relationship Specialty Start Date End Date Alicja Benton MD [address] [place] [address] PCP - General Internal Medicine 12/15/18 documented as of this encounter Additional Source Comments The information contained in this document represents components of the legal health record. It is not the complete legal health record.[facility]
--- OUTSIDE RECORDS SUMMARY | 2025-02-14 14:30 | XMS_ITS | Clinical Summary ---
Author Organization [facility] Address [address] [place] [address] Care Team Providers Care Crater And Packer Name Role Phone Mireya Robledo Primary Care Provide r Unavailable Medications Hospital, Clinic, or Other Facility Administered Medication Ordered Dose Route Frequency Start Date End Date Status lidocaine (XYLOCAINE) 4% (40 mg/mL) topical solution 120 mg 120 mg topical Once 11/20/2023 Active Encounters Date Type Department Care Team Description 11/18/2024 Telephone [facility] Infection Control Department [address] [place] [phone] Angel Sal III, MD from Last 3 [...] 2024 , 01/13/2023, 11/08/2021, Additional history exists COVID-19 Vaccine ( - 2024-2 6 season) 2024 01/16/2021, 05/17/2020, 04/19/2020 DTaP,Tdap,and Td Vaccines (2 - Td or Tdap) 11/30/2025 12/01/2015 Zoster Vaccines Completed 11/08/2017, 07/24/2017 Insurance MEDICARE [facility] Care Teams Crater And Packer Relationship Specialty Start Date End Date Mireya Robledo [address] [place] [id number] PCP - General Internal Medicine 11/04/23
--- OUTSIDE RECORDS SUMMARY | 2025-02-14 14:30 | XMS_ITS | Clinical Summary ---
Author Organization [facility] Address [address] [place] [phone] Phone Care Team Providers Care Manager Process Name Role Phone Alicja Benton MD Primary [...] file Insurance MEDICARE PART [facility] & [facility] [place] [facility] [place] [facility] & [place] [facility] & [facility] Care Teams Manager Process Relationship Specialty Start Date End Date Alicja Benton MD [address] [facility] [place] [address] PCP - General Internal Medicine 12/15/18 Additional Source Comments The information contained in this document represents components of the legal health record. It is not the complete legal health record.[facility]
--- OUTSIDE RECORDS SUMMARY | 2025-02-14 14:30 | XMS_ITS | Clinical Summary ---
Author Organization [facility] Address [address] [place] [address] Care Team Providers Care Tailor Women'S Garment Alteration Name Role Phone Mireya Robledo MD Primary [...] age to complete this topic Care Teams Tailor Women'S Garment Alteration Relationship Specialty Start Date End Date Mireya Robledo MD PCP - General Internal Medicine 05/26/20
--- OUTSIDE RECORDS SUMMARY | 2025-02-14 14:30 | XMS_ITS | Encounter Summary ---
Author Organization [facility] Address [address] [place] [address] Phone Care Team Providers Care Ornamental Rail Installer Name Role Phone Alicja Benton MD Primary Care Provider Encounter Details Date Type Department Care Team (Late st Contact Info) Description 01/14/2019 Documentation [facility] [address] [place] [phone] No [email or web address] Social History Tobacco Use Types Packs/Day Years [...] on filedocumented in this encounter Care Teams Ornamental Rail Installer Relationship Specialty Start Date End Date Alicja Benton MD [facility] [place] [address] PCP - General Internal Medicine 12/15/18 documented as of this encounter Additional Source Comments The information contained in this document represents components of the legal health record. It is not the complete legal health record.[facility]
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
== END 2025-02-14 11:13 | disposition home or self-care (01) ==
LOC: HO.HMGAL 11:12
PROVIDERS: PCP Internal Medicine; Visit Provider Registered Nurse Emergency
DX: J30.89 Other allergic rhinitis (principal)
CPT/HCPCS: 95117; 95165

== ENCOUNTER 2025-02-23 10:53 | Outpatient (AMB) | payer MEDICARE, MEDICAID, SELFPAY ==
--- OUTSIDE RECORDS SUMMARY | 2025-02-23 12:44 | XMS_ITS | Encounter Summary ---
Author Organization [facility] Address [address] [address] Phone Care Team Providers Care Sap Consultant Name Role Phone Alicja Benton MD Primary Care Provider Encounter Details Date Type Department Care Team (Late st Contact Info) Description 03/06/2020 Telemedicine [facility] and [facility] [address] [place] [phone] Chapis Myrick MD [address] [place] [phone] [email or web address] Lung nodules (Primary Dx) Social History Tobacco [...] classified documented in this encounter Care Teams Sap Consultant Relationship Specialty Start Date End Date Alicja Benton MD [address] [facility] [place] [address] PCP - General Internal Medicine 12/15/18 documented as of this encounter Additional Source Comments The information contained in this document represents components of the legal health record. It is not the complete legal health record.[facility]
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
--- OUTSIDE RECORDS SUMMARY | 2025-02-23 12:44 | XMS_ITS | Patient Health Record ---
[facility] Ari[facility] Welsh[facility] Address [address] [place] [address] Care Team Providers Care Outdoor Landscape Architect Name Role Phone Aston Davison Primary Care Provider Unav ailable Xavi D eLa Garza Unavailable [phone] Allergies Allergen (clinical drug ingredient) Drug/Non Drug [...] TH EVERY DAY Oral; Duration: 90 Active [id number] Ethyl Esters 1 GM TAKE 2 CAPSULES [...] [employer] [address] [place] [address] [id number] Jv Monroy Self - patient is the insured 4 Medical (General) History Medical History History ICD Code Arthritis asthma Back,Hip,and Knee pain Broken bones Headaches/Migraines High blood pressure Lung disease nerve disorder Surgical History Surgery Date(Month/Year) cervical fusion hernia leg surgery nose
--- OUTSIDE RECORDS SUMMARY | 2025-02-23 12:44 | XMS_ITS | Encounter Summary ---
Author Organization [facility] Address [address] [facility] [address] [place] [phone] Phone Care Team Providers Care Apprentice/Lineman Name Role Phone Alicja Benton MD Primary Care Provider Encounter Details Date Type Department Care Team (Late st Contact Info) Description 01/14/2019 Documentation [facility] [address] [place] [phone] No [email or web address] Social History Tobacco Use Types Packs/Day Years [...] on filedocumented in this encounter Care Teams Apprentice/Lineman Relationship Specialty Start Date End Date Alicja Benton MD [facility] [place] [address] PCP - General Internal Medicine 12/15/18 documented as of this encounter Additional Source Comments The information contained in this document represents components of the legal health record. It is not the complete legal health record.[facility]
--- OUTSIDE RECORDS SUMMARY | 2025-02-23 12:44 | XMS_ITS | Encounter Summary ---
Author Organization [facility] Address [address] [place] [address] Care Team Providers Care Environmental Attorney Name Role Phone Mireya Robledo MD Primary Care Prov ider Encounter Details Date Type Department Care Team (Late Contact Info) Description 02/18/2025 Results Follow-Up Adult Medicine [facility] [address] [place] [phone] Logan Romero PA [address] [place] [address] Social History Tobacco Use Types Packs/Day Years Used Date Smoking Tobacco: Former Cigarettes 1 Q uit: 03/24/2014 Smokeless Tobacco: Never Alcohol [...] Department Care Team (Late Contact Info) Description 04/07/2025 9:45 AM EST Office Visit Bariatric Surgery - [place] [address] [facility] [address] [place] [address] Sahara Villela MD [address] [place] [phone] 05/11/2025 10:00 AM EST Office Visit Orthopedic Surgery - [place] [address] [phone] Mina Eckert, DPM [address] [phone] 05/18/2025 10:00 AM EST Office Visit Adult Medicine - [place] [address] [place] [address] Mireya Robledo MD [address] [place] [address] documented as of this encounter Visit Diagnoses Not on filedocumented in this encounter Care Teams Environmental Attorney Relationship Specialty Start Date End Date Mireya Robledo MD [address] [place] [address] PCP - General Internal Medicine 02/02/24 documented as of this encounter
--- OUTSIDE RECORDS SUMMARY | 2025-02-23 12:44 | XMS_ITS | Clinical Summary ---
Author Organization [employer] [facility] Prior to 08/21/[address] [place] [address] Care Team Providers Care Wood Floor Layer Name Role Phone Mireya Robledo MD Primary [...] age to complete this topic Care Teams Wood Floor Layer Relationship Specialty Start Date End Date Mireya Robledo MD PCP - General Internal Medicine 05/26/20
--- OUTSIDE RECORDS SUMMARY | 2025-02-23 12:44 | XMS_ITS | Encounter Summary ---
Author Organization [facility] Address [address] [place] [phone] Phone Care Team Providers Care Grounds Manager Name Role Phone Alicja Benton MD Primary Care Provider Reason for Referral * MRI/CAT Scan - Closed Specialty Diagnoses / Procedures Referred By Contac t Referred To Contact Procedures CT Chest Outside (No Interpretation) Chapis Myrick MD Phone: tel: fax: mailto:[email or web address] Referral ID Status Reason Start Date Expiration Date Visits Re quested Visits Authorized [id number] Closed 01/15/2019 01/15/2020 1 1 * MRI/CAT Scan - Closed Specialty Diagnoses / Procedures Referred By Contac t Referred To Contact Procedures CT Chest Outside (No Interpretation) Chapis Myrick MD Phone: tel: fax: mailto:[email or web address] Referral ID Status Reason Start Date Expiration Date Visits Re quested Visits Authorized [id number] Closed 01/15/2019 01/15/2020 1 1 * MRI/CAT Scan - Closed Specialty Diagnoses / Procedures Referred By Contac t Referred To Contact Procedures CT Vascular Outside (No Interpretation) Chapis Myrick MD Phone: tel: fax: mailto:[email or web address] Referral ID Status Reason Start Date Expiration Date Visits Re quested Visits Authorized [id number] Closed 01/15/2019 01/15/2020 1 1 Encounter Details Date Type Department Care Team (Late st Contact Info) Description 01/15/2019 Transcribe Orders [facility] [address] [address] Osiel Rose [address] [place] [phone] [email or web address] Social History Tobacco Use Types [...] (No Interpretation) (01/15/2019 8:05 AM EDT) Narrative [facility] - 01/15/2019 8:05 AM EDT This study is for PACS storage only and not for interpretation. us Chapis Myrick MD IMG OUTSIDE IMAGING W/OUT IN TERPRETATION Final Result Performing Organization Address [facility] de Phone Number [facility] * CT Chest Outside (No Interpretation) (01/15/2019 8:04 AM EDT) Narrative [facility] - 01/15/2019 8:04 AM EDT This study is for PACS storage only and not for interpretation. us Chapis Myrick MD IMG OUTSIDE IMAGING W/OUT IN TERPRETATION Final Result Performing Organization Address [facility] Co de Phone Number [facility] * CT Vascular Outside (No Interpretation) (01/15/2019 8:04 AM EDT) Narrative [facility] - 01/15/2019 8:04 AM EDT This study is for PACS storage only and not for interpretation. us Chapis Myrick MD IMG OUTSIDE IMAGING W/OUT IN TERPRETATION Final Result [facility] documented in this encounter Visit Diagnoses Not on filedocumented in this encounter Care Teams Grounds Manager Relationship Specialty Start Date End Date Alicja Benton MD [facility] [place] [address] PCP - General Internal Medicine 12/15/18 documented as of this encounter Additional Source Comments The information contained in this document represents components of the legal health record. It is not the complete legal health record.[facility]
--- OUTSIDE RECORDS SUMMARY | 2025-02-23 12:44 | XMS_ITS | Clinical Summary ---
Author Organization [facility] Address [address] [place] [phone] Phone Care Team Providers Care Deburrer Machine Name Role Phone Alicja Benton MD [...] Insurance MEDICARE PART A & B [facility] MED[facility] PART A & B [place] A & B [facility] & B [facility] A & B [facility] PART A & B [place] PART A & B [facility] MEDICARE PART A & [place] & B [facility] Care Teams Deburrer Machine Relationship Specialty Start Date End Date Alicja Benton MD [address] [facility] [place] [address] PCP - General Internal Medicine 12/15/18 Additional Source Comments The information contained in this document represents components of the legal health record. It is not the complete legal health record.[facility]
--- OUTSIDE RECORDS SUMMARY | 2025-02-23 12:45 | XMS_ITS | Clinical Summary ---
Author Organization [facility] Address [address] [place] [address] Care Team Providers Care Skiver Counter Name Role Phone Mireya Robledo Primary Care [...] Zoster Vaccines Completed 11/08/2017, 07/24/2017 Insurance MEDICARE [facility] Care Teams Skiver Counter Relationship Specialty Start Date End Date Mireya Robledo [address] [place] [address] [place] [address] PCP - General Internal Medicine 11/04/23
== END 2025-02-23 11:00 | disposition home or self-care (01) ==
LOC: HO.HMGAL 10:53
PROVIDERS: PCP Internal Medicine; Visit Provider Registered Nurse Emergency
DX: J30.89 Other allergic rhinitis (principal)
CPT/HCPCS: 95117; 95165

== ENCOUNTER 2025-02-28 10:35 | Outpatient (AMB) | payer MEDICARE, MEDICAID, SELFPAY | END 2025-02-28 10:35 | disposition home or self-care (01) | LOC: HO.HMGAL 10:35 | PROVIDERS: PCP Internal Medicine; Visit Provider Registered Nurse Emergency | DX: J30.89 Other allergic rhinitis (principal) | CPT/HCPCS: 95117; 95165 ==

== ENCOUNTER 2025-03-09 11:54 | Outpatient (AMB) | payer MEDICARE, MEDICAID, SELFPAY ==
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
--- OUTSIDE RECORDS SUMMARY | 2025-03-09 15:48 | XMS_ITS | Encounter Summary ---
Author Organization [facility] Address [address] [place] [address] Care Team Providers Care Butt Welder Name Role Phone Mireya Robledo MD Primary Care Prov ider Encounter Details Date Type Department Care Team (Late Contact Info) Description 02/18/2025 Results Follow-Up Adult Medicine [facility] [address] [place] [phone] Logan Romero PA [address] [place] [address] Social History Tobacco Use Types Packs/Day Years [...] AM EST Office Visit Bariatric Surgery - [place] 175 [facility] [address] [place] [address] Sahara Villela MD [address] [place] [phone] 05/11/2025 10:00 AM EST Office Visit Orthopedic Surgery - [place] [address] [phone] Mina Eckert, DPM [address] [phone] 05/18/2025 10:00 AM EST Office Visit Adult Medicine - [place] [address] [place] [phone] Mireya Robledo MD [address] [place] [address] documented as of this encounter Visit Diagnoses Not on filedocumented in this encounter Care Teams Butt Welder Relationship Specialty Start Date End Date Mireya Robledo MD [address] [place] [address] PCP - General Internal Medicine 02/02/24 documented as of this encounter
--- OUTSIDE RECORDS SUMMARY | 2025-03-09 15:48 | XMS_ITS | Encounter Summary ---
Author Organization [facility] Address [address] [facility] [address] [place] [phone] Phone Care Team Providers Care Mobile Product Manager Name Role Phone Alicja Benton MD Primary Care Provider Encounter Details Date Type Department Care Team (Late st Contact Info) Description 01/14/2019 Documentation [facility] [address] [place] [phone] No [email or web address] Social History Tobacco Use Types Packs/Day [...] on filedocumented in this encounter Care Teams Mobile Product Manager Relationship Specialty Start Date End Date Alicja Benton MD [facility] [place] [address] PCP - General Internal Medicine 12/15/18 documented as of this encounter Additional Source Comments The information contained in this document represents components of the legal health record. It is not the complete legal health record.[facility]
--- OUTSIDE RECORDS SUMMARY | 2025-03-09 15:48 | XMS_ITS | Clinical Summary ---
Author Organization [facility] [email or web address] [facility] Prior to 08/21/[address] [place] [address] Care Team Providers Care Nailhead Operator Name Role Phone Mireya Robledo MD [...] age to complete this topic Care Teams Nailhead Operator Relationship Specialty Start Date End Date Mireya Robledo MD PCP - General Internal Medicine 05/26/20
--- OUTSIDE RECORDS SUMMARY | 2025-03-09 15:48 | XMS_ITS | Encounter Summary ---
Author Organization [facility] Address [address] [place] [address] Phone Care Team Providers Care Bessemer Bottom Maker Name Role Phone Alicja Benton MD Primary Care Provider Reason for Referral * MRI/CAT Scan - Closed Specialty Diagnoses / Procedures Referred By Contac t Referred To Contact Procedures CT Chest Outside (No Interpretation) Chapis Myrick MD Phone: tel: fax: mailto:[email or web address] Referral ID Status Reason Start Date Expiration Date Visits Re quested Visits Authorized [id number] Closed 01/15/2019 01/15/2020 1 1 * MRI/CAT Scan - Closed Specialty Diagnoses / Procedures Referred By Contac t Referred To Contact Procedures CT Chest Outside (No Interpretation) Chapis Myrick MD Phone: tel: fax: mailto:[email or web address] Referral ID Status Reason Start Date Expiration Date Visits Re quested Visits Authorized [id number] Closed 01/15/2019 01/15/2020 1 1 * MRI/CAT Scan - Closed Specialty Diagnoses / Procedures Referred By Contac t Referred To Contact Procedures CT Vascular Outside (No Interpretation) Chapis Myrick MD Phone: tel: fax: mailto:[email or web address] Referral ID Status Reason Start Date Expiration Date Visits Re quested Visits Authorized [id number] Closed 01/15/2019 01/15/2020 1 1 Encounter Details Date Type Department Care Team (Late st Contact Info) Description 01/15/2019 Transcribe Orders [facility] [address] [address] Osiel Rose [address] [place] [phone] [email or web address] Social History Tobacco Use Types Packs/Day [...] (No Interpretation) (01/15/2019 8:05 AM EDT) Narrative [facility] - 01/15/2019 8:05 AM EDT This study is for PACS storage only and not for interpretation. us Chapis Myrick MD IMG OUTSIDE IMAGING W/OUT IN TERPRETATION Final Result Performing Organization Address [facility] de Phone Number [facility] * CT Chest Outside (No Interpretation) (01/15/2019 8:04 AM EDT) Narrative [facility] - 01/15/2019 8:04 AM EDT This study is for PACS storage only and not for interpretation. us Chapis Myrick MD IMG OUTSIDE IMAGING W/OUT IN TERPRETATION Final Result Performing Organization Address [facility] Co de Phone Number [facility] * CT Vascular Outside (No Interpretation) (01/15/2019 8:04 AM EDT) Narrative [facility] - 01/15/2019 8:04 AM EDT This study is for PACS storage only and not for interpretation. us Chapis Myrick MD IMG OUTSIDE IMAGING W/OUT IN TERPRETATION Final Result [facility] documented in this encounter Visit Diagnoses Not on filedocumented in this encounter Care Teams Bessemer Bottom Maker Relationship Specialty Start Date End Date Alicja Benton MD [facility] [place] [address] PCP - General Internal Medicine 12/15/18 documented as of this encounter Additional Source Comments The information contained in this document represents components of the legal health record. It is not the complete legal health record.[facility]
--- OUTSIDE RECORDS SUMMARY | 2025-03-09 15:48 | XMS_ITS | Patient Health Record ---
[facility] Welsh[facility] Address [address] [place] [address] Care Team Providers Care Licensed Real Estate Broker Name Role Phone Aston Davison Primary Care Provider Unav ailable Xavi De La Garza Unavailable [phone] Allergies Allergen (clinical drug ingredient) Drug/Non Drug [...] TH EVERY DAY Oral; Duration: 90 Active [id number] Ethyl Esters 1 GM TAKE 2 CAPSULES [...] [employer] [address] [place] [address] [id number] Jv Monroy Self - patient is the insured 4 Medical (General) History Medical History History ICD Code Arthritis asthma Back,Hip,and Knee pain Broken bones Headaches/Migraines High blood pressure Lung disease nerve disorder Surgical History Surgery Date(Month/Year) cervical fusion hernia leg surgery nose
--- OUTSIDE RECORDS SUMMARY | 2025-03-09 15:48 | XMS_ITS | Encounter Summary ---
Author Organization [facility] Address [address] [address] Phone Care Team Providers Care Felter Tennis Balls Name Role Phone Alicja Benton MD Primary Care Provider Encounter Details Date Type Department Care Team (Late st Contact Info) Description 03/06/2020 Telemedicine [facility] [address] [place] [phone] Chapis Myrick MD [address] [place] [phone] [email or web address] Lung nodules (Primary Dx) Social History [...] classified documented in this encounter Care Teams Felter Tennis Balls Relationship Specialty Start Date End Date Alicja Benton MD [address] [facility] [place] [address] PCP - General Internal Medicine 12/15/18 documented as of this encounter Additional Source Comments The information contained in this document represents components of the legal health record. It is not the complete legal health record.[facility]
--- OUTSIDE RECORDS SUMMARY | 2025-03-09 15:49 | XMS_ITS | Clinical Summary ---
Author Organization [facility] Address [address] [place] [address] Care Team Providers Care Fire Management Officer Name Role Phone Mireya Robledo Primary Care [...] Zoster Vaccines Completed 11/08/2017, 07/24/2017 Insurance MEDICARE [facility] Care Teams Fire Management Officer Relationship Specialty Start Date End Date Mireya Robledo [address] [place] [address] [place] [address] PCP - General Internal Medicine 11/04/23
--- OUTSIDE RECORDS SUMMARY | 2025-03-09 15:49 | XMS_ITS | Clinical Summary ---
Author Organization [facility] Address [address] [place] [phone] Phone Care Team Providers Care Spray Rig Operator Name Role Phone Alicja Benton MD [...] file Insurance MEDICARE PART A & B [facility] MEDICARE PART A & B [place] [facility] [facility] [place] [facility] [place] [facility] [facility] Care Teams Spray Rig Operator Relationship Specialty Start Date End Date Alicja Benton MD [address] [place] [address] PCP - General Internal Medicine 12/15/18 Additional Source Comments The information contained in this document represents components of the legal health record. It is not the complete legal health record.[facility]
== END 2025-03-09 11:55 | disposition home or self-care (01) ==
LOC: HO.HMGAL 11:54
PROVIDERS: PCP Internal Medicine; Visit Provider Registered Nurse Emergency
DX: J30.89 Other allergic rhinitis (principal)
CPT/HCPCS: 95117; 95165

== ENCOUNTER 2025-03-14 11:18 | Outpatient (AMB) | payer MEDICARE, MEDICAID, SELFPAY ==
--- OUTSIDE RECORDS SUMMARY | 2025-03-14 14:25 | XMS_ITS | Encounter Summary ---
Author Organization [facility] Address [address] [place] [address] Phone Care Team Providers Care Adjunct Instructor Of Women'S Studies Name Role Phone Alicja Benton MD Primary Care Provider Reason for Referral * MRI/CAT Scan - Closed Specialty Diagnoses / Procedures Referred By Contac t Referred To Contact Procedures CT Chest Outside (No Interpretation) Chapis Myrick MD Phone: tel: fax: mailto:[email or web address] Referral ID Status Reason Start Date Expiration Date Visits Re quested Visits Authorized [id number] Closed 01/15/2019 01/15/2020 1 1 * MRI/CAT Scan - Closed Specialty Diagnoses / Procedures Referred By Contac t Referred To Contact Procedures CT Chest Outside (No Interpretation) Chapis Myrick MD Phone: tel: fax: mailto:[email or web address] Referral ID Status Reason Start Date Expiration Date Visits Re quested Visits Authorized [id number] Closed 01/15/2019 01/15/2020 1 1 * MRI/CAT Scan - Closed Specialty Diagnoses / Procedures Referred By Contac t Referred To Contact Procedures CT Vascular Outside (No Interpretation) Chapis Myrick MD Phone: tel: fax: mailto:[email or web address] Referral ID Status Reason Start Date Expiration Date Visits Re quested Visits Authorized [id number] Closed 01/15/2019 01/15/2020 1 1 Encounter Details Date Type Department Care Team (Late st Contact Info) Description 01/15/2019 Transcribe Orders [facility] [address] [address] Osiel Rose [address] [place] [phone] [email or web address] Social History Tobacco Use Types Packs/Day [...] (No Interpretation) (01/15/2019 8:05 AM EDT) Narrative [facility] - 01/15/2019 8:05 AM EDT This study is for PACS storage only and not for interpretation. us Chapis Myrick MD IMG OUTSIDE IMAGING W/OUT IN TERPRETATION Final Result Performing Organization Address [facility] de Phone Number [facility] * CT Chest Outside (No Interpretation) (01/15/2019 8:04 AM EDT) Narrative [facility] - 01/15/2019 8:04 AM EDT This study is for PACS storage only and not for interpretation. us Chapis Myrick MD IMG OUTSIDE IMAGING W/OUT IN TERPRETATION Final Result Performing Organization Address [facility] Co de Phone Number [facility] * CT Vascular Outside (No Interpretation) (01/15/2019 8:04 AM EDT) Narrative [facility] - 01/15/2019 8:04 AM EDT This study is for PACS storage only and not for interpretation. us Chapis Myrick MD IMG OUTSIDE IMAGING W/OUT IN TERPRETATION Final Result [facility] documented in this encounter Visit Diagnoses Not on filedocumented in this encounter Care Teams Adjunct Instructor Of Women'S Studies Relationship Specialty Start Date End Date Alicja Benton MD [facility] [place] [address] PCP - General Internal Medicine 12/15/18 documented as of this encounter Additional Source Comments The information contained in this document represents components of the legal health record. It is not the complete legal health record.[facility]
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
--- OUTSIDE RECORDS SUMMARY | 2025-03-14 14:25 | XMS_ITS | Encounter Summary ---
Author Organization [facility] Address [address] [facility] [address] [place] [address] Phone Care Team Providers Care Photographs Curator Name Role Phone Alicja Benton MD Primary Care Provider Encounter Details Date Type Department Care Team (Late st Contact Info) Description 01/14/2019 Documentation [facility] [address] [place] [phone] No [email or web address] Social History Tobacco Use Types Packs/Day Years [...] on filedocumented in this encounter Care Teams Photographs Curator Relationship Specialty Start Date End Date Alicja Benton MD [facility] [address] PCP - General Internal Medicine 12/15/18 documented as of this encounter Additional Source Comments The information contained in this document represents components of the legal health record. It is not the complete legal health record.[facility]
--- OUTSIDE RECORDS SUMMARY | 2025-03-14 14:26 | XMS_ITS | Encounter Summary ---
Author Organization [facility] Address [address] [place] [address] Care Team Providers Care Monitoring Manager Name Role Phone Mireya Robledo MD Primary Care Prov ider Encounter Details Date Type Department Care Team (Late Contact Info) Description 02/18/2025 Results Follow-Up Adult Medicine [facility] [address] [place] [phone] Logan Romero PA [address] [place] [address] Social History Tobacco Use Types Packs/Day Years [...] AM EST Office Visit Bariatric Surgery - [place] [address] [facility] [address] [place] [address] Sahara Villela MD [address] [place] [phone] 05/11/2025 10:00 AM EST Office Visit Orthopedic Surgery - [place] [address] [phone] Mina Eckert, DPM [address] [phone] 05/18/2025 10:00 AM EST Office Visit Adult Medicine - [place] [address] [place] [phone] Mireya Robledo MD [address] [place] [address] documented as of this encounter Visit Diagnoses Not on filedocumented in this encounter Care Teams Monitoring Manager Relationship Specialty Start Date End Date Mireya Robledo MD [address] [place] [address] PCP - General Internal Medicine 02/02/24 documented as of this encounter
--- OUTSIDE RECORDS SUMMARY | 2025-03-14 14:26 | XMS_ITS | Patient Health Record ---
Author Organization [facility] Address [address] [place] [address] Care Team Providers Care Obiee Obia Solution Architect Name Role Phone Aston Davison Primary Care Provider Unav ailable Xavi De La Garza Unavailable [phone] Allergies Allergen (clinical drug ingredient) Drug/Non Drug [...] TH EVERY DAY Oral; Duration: 90 Active [id number] Ethyl Esters 1 GM TAKE 2 CAPSULES [...] [employer] [address] [place] [address] [id number] Jv Monroy Self - patient is the insured 4 Medical (General) History Medical History History ICD Code Arthritis asthma Back,Hip,and Knee pain Broken bones Headaches/Migraines High blood pressure Lung disease nerve disorder Surgical History Surgery Date(Month/Year) cervical fusion hernia leg surgery nose
--- OUTSIDE RECORDS SUMMARY | 2025-03-14 14:26 | XMS_ITS | Clinical Summary ---
Author Organization [facility] Address [address] [place] [address] Care Team Providers Care Cable Lacer Name Role Phone Mireya Robledo Primary Care [...] Zoster Vaccines Completed 11/08/2017, 07/24/2017 Insurance MEDICARE [facility] Care Teams Cable Lacer Relationship Specialty Start Date End Date Mireya Robledo [address] [place] [address] [place] [address] PCP - General Internal Medicine 11/04/23
--- OUTSIDE RECORDS SUMMARY | 2025-03-14 14:26 | XMS_ITS | Clinical Summary ---
Author Organization Located [facility] Address [address] [place] [address] Phone Care Team Providers Care Flower Grader Name Role Phone Alicja Benton MD Primary [...] file Insurance MEDICARE PART A & B [facility] MEDICARE PART A & B [place] MED[place] PART A & B [facility] & B [facility] A & B [place] MED[place] PART A & B [facility] A & [place] MED[place] PART A & B [facility] Care Teams Flower Grader Relationship Specialty Start Date End Date Alicja Benton MD [address] [facility] [address] PCP - General Internal Medicine 12/15/18 Additional Source Comments The information contained in this document represents components of the legal health record. It is not the complete legal health record.[facility]
--- OUTSIDE RECORDS SUMMARY | 2025-03-14 14:26 | XMS_ITS | Encounter Summary ---
Author Organization [facility] Address [address] [address] Phone Care Team Providers Care Em Physician Name Role Phone Alicja Benton MD Primary Care Provider Encounter Details Date Type Department Care Team (Late st Contact Info) Description 03/06/2020 Telemedicine [facility] [address] [place] [address] Chapis Myrick MD [address] [place] [phone] [email or web address] Lung nodules (Primary Dx) Social [...] classified documented in this encounter Care Teams Em Physician Relationship Specialty Start Date End Date Alicja Benton MD [address] [facility] [place] [address] PCP - General Internal Medicine 12/15/18 documented as of this encounter Additional Source Comments The information contained in this document represents components of the legal health record. It is not the complete legal health record.[facility]
--- OUTSIDE RECORDS SUMMARY | 2025-03-14 14:26 | XMS_ITS | Clinical Summary ---
Author Organization [employer] [employer] [facility] Prior to 08/21/[address] [place] [address] Care Team Providers Care Boatswains Mate Name Role Phone Mireya Robledo MD Primary [...] age to complete this topic Care Teams Boatswains Mate Relationship Specialty Start Date End Date Mireya Robledo MD PCP - General Internal Medicine 05/26/20
== END 2025-03-14 11:19 | disposition home or self-care (01) ==
LOC: HO.HMGAL 11:18
PROVIDERS: PCP Internal Medicine; Visit Provider Registered Nurse Emergency
DX: J30.89 Other allergic rhinitis (principal)
CPT/HCPCS: 95117; 95165

== ENCOUNTER 2025-03-18 12:05 | Outpatient (AMB) | payer MEDICARE, MEDICAID, SELFPAY ==
--- NOTE | 2025-03-18 12:07 | A.OFFVIS_ITS ---
Intake Visit Reasons: meds Intake Note: Jv presents as a telehealth - states that he is having issues in his throat and the magic mouthwash is now so he needs a new Rx and he has a diagnoses of Esophageal Strictures and Varices that he states is fixed with the Augmentin - at the moment Lian is on vacation so he is unable to get the medication. Data Integrity Consultant Required: No Allergies metronidazole (From FLAGYL) Allergy (Severe, Verified 03/18/25 12:08) RASH tree and shrub pollen (TREE) Allergy (Severe, Verified 03/18/25 12:08) Rash dexamethasone Adverse Reaction (Severe, Verified 03/18/25 12:08) palpitatiions fluticasone furoate (Breo Ellipta) Adverse Reaction (Severe, Verified 03/18/25 12:08) palpitations, high BP umeclidinium (Incruse Ellipta) Adverse Reaction (Severe, Verified 03/18/25 12:08) palpitations Bee sting Allergy (Severe, Uncoded 03/18/25 12:08) Hives/Difficulty breathing Clindamycin HCl Allergy (Severe, Uncoded 03/18/25 12:08) Hives HPI HPI meds: Details: Patient is a 59-year-old male with PMH of anxiety, PTSD, asthma-COPD overlap, sleep apnea, hypertension, hyperlipidemia. Patient of Dr. Beal video visit today to review medication request. He reports experiencing esophageal spasms during ejaculation, pain on swallowing, and his chronic intermittent nausea, while denying any associated fever or vomiting. The patient finds Magic Mouthwash helpful for his symptoms and requests a refill. An EGD performed on February 10 revealed esophagitis, an esophageal stricture, a tear at the lower esophageal sphincter, and fundic gland polyps. The patient takes famotidine and was recently prescribed a new medication by Dr. Beal. Social hx: -denies ETOH use -denies recreational drug use -former smoker, cessation 13 years ago PFSH Medical History Hepatitis B core antibody positive Neuropathy Sleep apnea Shortness of breath Hypoglycemia Asthma-COPD overlap syndrome Pulmonary nodules Hx of renal calculi Hx of allergic rhinitis History of esophageal spasm Hx of chest pain Back pain Osteoarthritis of both hips Hx of goiter History of IBS History of colitis Chronic pain High cholesterol Hx of multiple pulmonary nodules Hypertension PTSD (post-traumatic stress disorder) Panic attacks Dysphagia GERD (gastroesophageal reflux disease) Anxiety Surgical History History of surgery on arm H/O shoulder surgery H/O neck surgery Hx of endoscopy Hx of transurethral resection of prostate Hx of tonsillectomy Hx of colonoscopy History of nasal surgery Hx of left inguinal hernia repair Hx of cervical discectomy Family History Father No problems noted. Mother No problems noted. Social History Household Members: Other Household Members Other:: Mother Alcohol intake: never Patient Tobacco Use Status: Former Tobacco user Tobacco use type: Cigarette Years Smoked: 30 Second Hand Smoke Exposure: No Current occupational status: unemployed Review of Systems Const Reports as per HPI ENT Reports as per HPI Card Reports as per HPI Resp Reports as per HPI GI Reports as per HPI Reports as per HPI Physical Exam Const General: healthy appearing, no acute distress and well developed Nutritional Appearance: average body habitus Orientation/consciousness: patient oriented x3 HEENT Head: Yes normal to inspection, Yes normocephalic and Yes atraumatic Face and sinus: Yes normal facial exam Mouth: Normal oral and palatal mucosa present and tongue normal Eyes General: appearance normal, both eyes and all related structures Neck Neck: Yes normal visual inspection Resp Effort & Inspection: normal respiratory effort, able to speak in complete sentences, no tracheal deviation and symmetric chest movement Cardio Jugular venous distension: no JVD Neuro General: patient oriented x3 Gait exam (Neuro): Normal gait present Psych Appearance: grossly normal Mental Status: mental status grossly normal Speech and movement: Normal speech and movement present Affect: normal affect Attitude: cooperative Thought process: Normal thought process present Thought content: Normal thought content present Insight: Good insight present (Psych) Judgement: Good judgement present (Psych) Results Reviewed Results Reviewed: Operative Note Date of Service: 02/10/25 Narrative: Procedure Description: EGD Indication: dysphagia Anesthesia: MAC FLEXIBLE TRANSORAL UPPER GASTROINTESTINAL ENDOSCOPY UPPER ENDOSCOPY Consent: Indications for the procedure and potential complications of bleeding, perforation, reaction to medications and missed diagnosis were discussed with the patient and informed consent was obtained. Instrument: Olympus GIF H 190 J mid size upper endoscope Monitoring: Vital signs and clinical assessment, continuous EKG monitoring, Pulse oximetry, Carbon Dioxide monitoring and blood pressure monitoring were done throughout the procedure. Procedure: The patient was placed in the left lateral decubitis position and pre-procedure medications were administered and a bite block was placed. The endoscope was inserted into the mouth and advanced under direct vision to the third part of duodenum. A careful inspection was made as the upper endoscope was withdrawn including a retroflexed examination of the proximal stomach; Findings and interventions are described below. Findings: Larynx:normal Esophagus: GE junction at 37 cm, diaphragm hiatus at 37 cm, bogginess and erythema at GEJ, balloon dilation done to 19 mm and tear noted at LES, bx also taken from distal and proximal esophagus. Balloon dilation done to 19 mm at UES with small tear noted. Stomach: several fundic gland appearing polyps, several of these removed with cold snare for analysis. Grade 2 flap valve on retroflexed examination of the cardia. fundoplication noted. Duodenum: Normal bulb and descending duodenum, Intervention: Biopsies as noted above, balloon dilation, cold snare Impression/Findings: esophagitis esophageal stricture fundic gland polyps PLAN: will send magic mouthwash, cont with anti acid medication GERD precautions PATHOLOGY Collected: 02/10/25 Location: [facility] Received: 02/10/25 Diagnosis A. Stomach, polypectomies: Fundic gland polyps with background mild chronic inactive inflammation; no Helicobacter organisms seen. B. EG junction, biopsy: - Cardiac-type mucosa with moderate chronic active inflammation; no intestinal metaplasia seen. - Active esophagitis (maximum eosinophil count 2 per high powered field). C. Esophagus, distal, biopsy: Active esophagitis (maximum eosinophil count 1 per high powered field). D. Esophagus, proximal, biopsy: Squamous epithelium within normal limits; no inflammation seen. Clinical History Pre-Op Dx: Dysphagia Post-Op Dx: Gastric polyps, stricture, esophagitis Assessment & Plan Assessment & Plan (1) Esophageal stricture: Comment: 01/2025 EGD- esophagitis, esophageal stricture w/ balloon dilation done to 19 mm and tear noted at LES, fundic gland polyps. Code(s): K22.2 - Esophageal obstruction Category: Medical Plan: The patient's symptoms of odynophagia and spasms are attributed to his known esophagitis/stricture and recent EGD findings. - A refill of Magic Mouthwash will be sent to the patient's pharmacy for symptomatic relief. - There is no indication for antibiotic therapy at this time. - The patient was advised to continue famotidine, which can be taken up to twice a day, and newly prescribed nizatidine, as there are no interactions. - He will follow up with his primary GI provider on April 11 as scheduled. Plan Follow-up as above or sooner if needed Time: I spent a total of 30 minutes on the date of encounter which includes: Preparing to see the patient (reviewed previous documentation, test results and medical history) Performing a medically appropriate exam and/or evaluation Ordering medications, tests, and procedures Documenting clinical information in the health record Medications: Refilled Magic Mouthwash Diphen/Lido/Antacid 1:1:1 Lidocaine Viscous 2 % 80mL; diphenhydramine 12.5 mg/5 mL 80mL; aluminum-mag hydrox-simeth [id number]-30il/5mL 80mL 10 mL PO QID 240 mL 0RF Coding Level of Care Code Established Pt Tele Est Pt Level 4 (50870) Patient Type Established Diagnoses Esophageal stricture K22.2
--- OUTSIDE RECORDS SUMMARY | 2025-03-18 12:07 | XMS_ITS | Encounter Summary ---
Author Organization [facility] Address [address] [address] Phone Care Team Providers Care Psychologist Personnel Name Role Phone Alicja Benton MD Primary Care Provider Encounter Details Date Type Department Care Team (Late st Contact Info) Description 03/06/2020 Telemedicine [facility] [address] [place] [phone] Chapis Myrick MD [address] [place] [phone] [email or web address] Lung nodules (Primary Dx) Social History [...] classified documented in this encounter Care Teams Psychologist Personnel Relationship Specialty Start Date End Date Alicja Benton MD [address] [place] [address] PCP - General Internal Medicine 12/15/18 documented as of this encounter Additional Source Comments The information contained in this document represents components of the legal health record. It is not the complete legal health record.[facility]
--- OUTSIDE RECORDS SUMMARY | 2025-03-18 12:07 | XMS_ITS | Encounter Summary ---
Author Organization [facility] Address [address] [facility] [address] [place] [address] Phone Care Team Providers Care Assembler Product Name Role Phone Alicja Benton MD Primary Care Provider Encounter Details Date Type Department Care Team (Late st Contact Info) Description 01/14/2019 Documentation [facility] [address] [place] [id number] No [email or web address] Social History Tobacco Use Types Packs/Day [...] filedocumented in this encounter Care Teams Assembler Product Relationship Specialty Start Date End Date Alicja Benton MD [facility] [place] [address] PCP - General Internal Medicine 12/15/18 documented as of this encounter Additional Source Comments The information contained in this document represents components of the legal health record. It is not the complete legal health record.[facility]
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
--- OUTSIDE RECORDS SUMMARY | 2025-03-18 12:07 | XMS_ITS | Encounter Summary ---
Author Organization [facility] Address [address] [place] [phone] Phone Care Team Providers Care Obstetrics Nurse Name Role Phone Alicja Benton MD Primary Care Provider Reason for Referral * MRI/CAT Scan - Closed Specialty Diagnoses / Procedures Referred By Contac t Referred To Contact Procedures CT Chest Outside (No Interpretation) Chapis Myrick MD Phone: tel: fax: mailto:[email or web address] Referral ID Status Reason Start Date Expiration Date Visits Re quested Visits Authorized [id number] Closed 01/15/2019 01/15/2020 1 1 * MRI/CAT Scan - Closed Specialty Diagnoses / Procedures Referred By Contac t Referred To Contact Procedures CT Chest Outside (No Interpretation) Chapis Myrick MD Phone: tel: fax: mailto:[email or web address] Referral ID Status Reason Start Date Expiration Date Visits Re quested Visits Authorized [id number] Closed 01/15/2019 01/15/2020 1 1 * MRI/CAT Scan - Closed Specialty Diagnoses / Procedures Referred By Contac t Referred To Contact Procedures CT Vascular Outside (No Interpretation) Chapis Myrick MD Phone: tel: fax: mailto:[email or web address] Referral ID Status Reason Start Date Expiration Date Visits Re quested Visits Authorized [id number] Closed 01/15/2019 01/15/2020 1 1 Encounter Details Date Type Department Care Team (Late st Contact Info) Description 01/15/2019 Transcribe Orders [facility] [address] [address] Osiel Rose [address] [place] [phone] [email or web address] Social History Tobacco Use Types Packs/Day [...] (No Interpretation) (01/15/2019 8:05 AM EDT) Narrative [facility] - 01/15/2019 8:05 AM EDT This study is for PACS storage only and not for interpretation. us Chapis Myrick MD IMG OUTSIDE IMAGING W/OUT IN TERPRETATION Final Result Performing Organization Address [facility] de Phone Number [email or web address] * CT Chest Outside (No Interpretation) (01/15/2019 8:04 AM EDT) Narrative [facility] - 01/15/2019 8:04 AM EDT This study is for PACS storage only and not for interpretation. us Chapis Myrick MD IMG OUTSIDE IMAGING W/OUT IN TERPRETATION Final Result Performing Organization Address [facility] Co de Phone Number [email or web address] * CT Vascular Outside (No Interpretation) (01/15/2019 8:04 AM EDT) Narrative [facility] - 01/15/2019 8:04 AM EDT This study is for PACS storage only and not for interpretation. us Chapis Myrick MD IMG OUTSIDE IMAGING W/OUT IN TERPRETATION Final Result [facility] documented in this encounter Visit Diagnoses Not on filedocumented in this encounter Care Teams Obstetrics Nurse Relationship Specialty Start Date End Date Alicja Benton MD [facility] [place] [phone] PCP - General Internal Medicine 12/15/18 documented as of this encounter Additional Source Comments The information contained in this document represents components of the legal health record. It is not the complete legal health record.[facility]
--- OUTSIDE RECORDS SUMMARY | 2025-03-18 12:07 | XMS_ITS | Encounter Summary ---
Author Organization [facility] Address [address] [place] [address] Care Team Providers Care Cap Maker Name Role Phone Mireya Robledo MD Primary Care Prov ider Encounter Details Date Type Department Care Team (Late Contact Info) Description 02/18/2025 Results Follow-Up Adult Medicine [facility] [address] [place] [phone] Logan Romero PA [address] [place] [address] Social History Tobacco Use Types Packs/Day Years [...] AM EST Office Visit Bariatric Surgery - [place] [address] [facility] [address] [place] [address] Sahara Villela MD [address] [place] [phone] 05/11/2025 10:00 AM EST Office Visit Orthopedic Surgery - [place] [address] [phone] Mina Eckert, DPM [address] [phone] 05/18/2025 10:00 AM EST Office Visit Adult Medicine - [place] [address] [place] [phone] Mireya Robledo MD [address] [place] [address] documented as of this encounter Visit Diagnoses Not on filedocumented in this encounter Care Teams Cap Maker Relationship Specialty Start Date End Date Mireya Robledo MD [address] [place] [address] PCP - General Internal Medicine 02/02/24 documented as of this encounter
--- OUTSIDE RECORDS SUMMARY | 2025-03-18 12:08 | XMS_ITS | Clinical Summary ---
Author Organization [facility] Address [address] [place] [address] Phone Care Team Providers Care Car Dealer Name Role Phone Alicja Benton MD Primary [...] file Insurance MEDICARE PART A & B [facility] MED[facility] PART A & B [place] A & [facility] & [place] & [facility] & [place] MED[place] PART A & [facility] Care Teams Car Dealer Relationship Specialty Start Date End Date Alicja Benton MD [address] [place] [address] PCP - General Internal Medicine 12/15/18 Additional Source Comments The information contained in this document represents components of the legal health record. It is not the complete legal health record.[facility]
--- OUTSIDE RECORDS SUMMARY | 2025-03-18 12:08 | XMS_ITS | Clinical Summary ---
Author Organization [facility] Address [address] [place] [address] Care Team Providers Care Luster Repairer Name Role Phone Mireya Robledo Primary Care [...] Zoster Vaccines Completed 11/08/2017, 07/24/2017 Insurance MEDICARE [facility] Care Teams Luster Repairer Relationship Specialty Start Date End Date Mireya Robledo [address] [place] [address] [place] [address] PCP - General Internal Medicine 11/04/23
--- OUTSIDE RECORDS SUMMARY | 2025-03-18 12:08 | XMS_ITS | Patient Health Record ---
Author Organization [facility] Address [address] [place] [address] Care Team Providers Care Station Cleaning Porter Name Role Phone Aston Davison Primary Care Provider Unav ailable Xavi De La Garza Unavailable [phone] Allergies Allergen (clinical drug ingredient) Drug/Non Drug [...] TH EVERY DAY Oral; Duration: 90 Active Bgobi-8-ohne Ethyl Esters 1 GM TAKE 2 CAPSULES [...] [employer] [address] [place] [address] [id number] Jv Monroy Self - patient is the insured 4 Medical (General) History Medical History History ICD Code Arthritis asthma Back,Hip,and Knee pain Broken bones Headaches/Migraines High blood pressure Lung disease nerve disorder Surgical History Surgery Date(Month/Year) cervical fusion hernia leg surgery nose
--- OUTSIDE RECORDS SUMMARY | 2025-03-18 12:08 | XMS_ITS | Clinical Summary ---
Author Organization [facility] Prior to 08/21/[address] [place] [id number] Care Team Providers Care Stenocaptioner Name Role Phone Mireya Robledo MD Primary [...] age to complete this topic Care Teams Stenocaptioner Relationship Specialty Start Date End Date Mireya Robledo MD PCP - General Internal Medicine 05/26/20
== END 2025-03-18 12:53 | disposition home or self-care (01) ==
LOC: HO.HGI 12:05
PROVIDERS: PCP Internal Medicine; Visit Provider Nurse Practitioner Family
DX: K22.2 Esophageal obstruction (principal)
CPT/HCPCS: 99214